=== PATIENT | female | born 1955 | race Caucasian/White ===

== ENCOUNTER → 2017-01-19 | Outpatient (CLI) | payer MEDICARE, OTHER ==
[2017-01-19 10:37] LABS: CH 28.5; CHCM 32.7; HDW 3.06; HGB 12.5 gm/dL (11.4-16.0); MCH 29.5 pg (25.0-35.0); MCHC 33.7 g/dL (31.0-37.0); MCV 87.5 fL (80.0-100.0); Mean Platelet Volume 7.3; RBC 4.23 m/uL (3.80-5.40); RDW 15.1 % (11.5-15.5); WBC 7.9 k/uL (3.8-10.6)
[2017-01-19 10:57] LABS: Anion Gap 9 mmol/L; Blood Urea Nitrogen 15 mg/dL (7-17); Carbon Dioxide 30 mmol/L (22-30); Chloride 103 mmol/L (98-107); Non-African American GFR(MDRD) 56 (>60 ml/min/1.73 sqM); Sodium 142 mmol/L (137-145)
[2017-01-19 10:58] LABS: Potassium 2.9 mmol/L (3.5-5.1)
== END | disposition home or self-care (01) ==
LOC: LABPAT 10:12
PROVIDERS: ATTEND Internal Medicine Interventional Cardiology
DX: Z01.812 Encounter for preprocedural laboratory examination (principal); I73.9 Peripheral vascular disease, unspecified
CPT/HCPCS: 36415; 80051; 82565; 84520; 85027

== ENCOUNTER 2017-01-24 06:07 | Day surgery (SDC) | payer MEDICARE, OTHER ==
[2017-01-19 15:59] VITALS: BMI 27.8
[~2017-01-24 06:07] MED LIST: ALPRAZolam 0.25 MG TAB PO PRN; ASPIRIN 325 MG TAB PO STA; SODIUM CHLORIDE 0.9% 1,000 ML in EMPTY BAG 1 BAG IV ONE
[2017-01-24 06:40] VITALS: TEMP 97.9
[2017-01-24] MEDS ORDERED: MIDAZOLAM 2 MG/2 ML VIAL IVP ONE (07:31)
[2017-01-24] MEDS ORDERED: LIDOCAINE 2% INJ 20 MG/ML SQ ONE (07:32)
[2017-01-24] MEDS ORDERED: fentaNYL (PF) 50 MCG/ML 2 ML AMP IV ONE (07:35)
[2017-01-24] MEDS ORDERED: IODIXANOL 320 MG/ML 100 ML INTRAARTER ONE (07:45)
[2017-01-24] MEDS ORDERED: SODIUM CHLORIDE 0.9% 1,000 ML IV SCH (08:00)
--- NOTE | 2017-01-24 08:34 | LTR ---
January 24, 2017 Re: Brynn Sr Dear Yohana: Ms. Brynn Sr was experiencing bilateral lower extremities discomfort concerning for vascular disease. She underwent a peripheral angiogram which revealed only mild to moderate bilateral disease without any high-grade stenosis. I want to thank you for allowing me to participate in her care and please do not hesitate to call if you have any question or concern. Sincerely, MD JAZZY Forrester / FREEDOM: [id number] /
--- NOTE | 2017-01-24 08:40 | AN ---
ANGIOGRAPHY REPORT DATE OF SERVICE: 01/24/2017 PERFORMING PHYSICIAN: Gabo Simental MD, bank sales and service manager. PROCEDURE PERFORMED: 1. Abdominal aortogram. 2. Bilateral lower extremity runoff. INDICATION: This is a pleasant 61-year-old female patient who is known to have CAD and prior CABG as well as multiple comorbidities, who was experiencing bilateral lower extremity intermittent claudication. She underwent an arterial duplex study which revealed disease involving the left SFA. She was brought today to undergo an abdominal aortogram and bilateral lower extremities runoff. APPROACH: Right common femoral artery. COMPLICATION: None. LEVEL OF SEDATION: Moderate with sedation length of 17 minutes. PROCEDURE DESCRIPTION: After obtaining informed consent, the patient was brought to the cardiac medical laboratory technicians. The right common femoral artery was cannulated using micropuncture technique, the micropuncture wire passed easily. Then I placed a 5-Swedish sheath in the right common femoral artery. Subsequently I did an abdominal aortogram and bilateral lower extremities runoff using 5-Swedish pigtail catheter which was initially placed at the level of the renal arteries then it was pulled into above the bifurcation of the aorta to right and left common iliac arteries. The procedure was completed without any complication. SELECTIVE PERIPHERAL ANGIOGRAM: 1. The aorta has mild disease only. 2. Common iliac arteries: The right common iliac artery appeared to have mild disease only and the left common iliac artery appeared to be angiographically normal. 3. Internal iliac arteries: The right and left internal iliac arteries are patent. 4. External iliac arteries: The right and left external iliac arteries are angiographically normal. 5. Common femoral arteries: The right and left common femoral arteries are angiographically normal. 6. Profunda: The right and left profunda are patent. 7. SFA: The right and left SFA are patent. 8. Popliteal: The right and left popliteals are angiographically normal. 9. Below the knee: There are 3 vessels runoff below the knee bilaterally. CONCLUSION: Intermediate disease involving the right common iliac artery. POSTPROCEDURE MANAGEMENT: 1. At this point, maximize medical treatment. 2. Follow up with the patient. MMODL / IJN: [id number] /
[2017-01-24 10:04] VITALS: RESP 18
--- NOTE | 2017-01-24 11:58 | IR ---
Fluoroscopy HISTORY: Peripheral vascular occlusive disease 1.9 minutes fluoroscopy time supplied to the referring clinician. 102 intraoperative C-arm images do cument the procedure. See dictated report from cardiology.
[2017-01-24 14:17] VITALS: BP 125/58; PULSE 63
== END 2017-01-24 14:50 | disposition home or self-care (01) ==
LOC: CATHCVL 06:07
PROVIDERS: ATTEND Internal Medicine Interventional Cardiology
DX: I70.213 Atherosclerosis of native arteries of extremities with intermittent claudication, bilateral legs (principal); I10 Essential (primary) hypertension; E78.5 Hyperlipidemia, unspecified; Z95.1 Presence of aortocoronary bypass graft; Z87.891 Personal history of nicotine dependence; Z79.82 Long term (current) use of aspirin; Z79.899 Other long term (current) drug therapy
CPT/HCPCS: 36200; 75625; 75716; 84132; C1769 ×3; C1894 ×2; J2001; J2250; Q9967; J3010

== ENCOUNTER → 2019-03-02 | Day surgery (SDC) | payer MEDICARE, OTHER ==
[2019-02-26 15:31] VITALS: BMI 28.3
[~2019-03-02] MED LIST changes: +ALPRAZolam 0.5 MG TAB PO PRN; +IOPAMIDOL-250 100ML BTL INTRAARTER ONE; +LIDOCAINE 1% INJ 10MG/ML (20 ML MDV) SQ ONE; +MIDAZOLAM 2 MG/2 ML VIAL IV ONE; +RX INFO: IV CONTRAST WAS GIVEN 1 EACH MISC MISCELLANE PRN; +SODIUM CHLORIDE 0.9% 1,000 ML IV SCH; +ZOLPIDEM 5 MG TAB PO PRN
[2019-03-02 09:44] VITALS: RESP 18; TEMP 98.1
[2019-03-02 09:54] LABS: Basophils % (A) 1 %; Eosinophils # (A) 0.1 k/uL (0-0.7); Eosinophils % (A) 3 %; HCT 34.6 % (34.0-46.0); HGB 10.9 gm/dL (11.4-16.0); Hypochromasia Slight; Lymphocytes # (A) 1.8 k/uL (1.0-4.8); Lymphocytes % (A) 40 %; MCH 26.5 pg (25.0-35.0); MCHC 31.4 g/dL (31.0-37.0); MCV 84.5 fL (80.0-100.0); Mean Platelet Volume 7.7; Monocytes # (A) 0.3 k/uL (0-1.0); Monocytes % (A) 7 %; Neutrophils # (A) 2.1 k/uL (1.3-7.7); Neutrophils % (A) 47 %; Platelet Count 225 k/uL (150-450); WBC 4.4 k/uL (3.8-10.6)
[2019-03-02 10:05] LABS: Calcium 9.5 mg/dL (8.4-10.2); Potassium 4.1 mmol/L (3.5-5.1)
--- NOTE | 2019-03-02 10:54 | IR ---
EXAMINATION TYPE: IR angio abdominal w runoff DATE OF EXAM: 03/02/2019 CLINICAL HISTORY: Peripheral vascular disease with leg pain. TECHNIQUE: Fluoroscopy. COMPARISON: None. FINDINGS: Fluoroscopic guidance was provided during abdominal angiogram with lower extremity runoff procedure performed by Dr. Simental. A total of 2.9 minutes of fluoroscopic time was utilized during the procedure and 6 cine runs are acquired. Images acquired show access via right groin with subsequent angiogram and runoff. Please refer to procedure note for further details if necessary. IMPRESSION: As Above.
--- NOTE | 2019-03-02 11:27 | AN ---
ANGIOGRAPHY REPORT ABDOMINAL AORTOGRAM AND BILATERAL LOWER EXTREMITIES RUNOFF: DATE OF SERVICE: 03/02/2019 PERFORMING PHYSICIAN: Gabo Simental MD. PROCEDURE PERFORMED: 1. An abdominal aortogram. 2. Bilateral lower extremities runoff. INDICATION: This is a 64-year-old female patient with history of coronary artery disease, history of smoking, as well as hypertension and dyslipidemia who was experiencing bilateral lower extremities intermittent claudication and underwent an arterial duplex study which revealed intermediate to severe femoral-popliteal disease. Because of that, she was brought today to undergo an aortogram with runoff. APPROACH: Right common femoral artery. COMPLICATION: None. LEVEL OF SEDATION: Moderate with a sedation length of 16 minutes. PROCEDURE DESCRIPTION: After obtaining an informed consent, the patient was brought to the cardiac director geophysical laboratory. The right common femoral artery was cannulated using micropuncture technique, the micropuncture wire passed easily, then I placed a 5-Bolivian sheath at the right common femoral artery. After that, I did an abdominal aortogram and bilateral lower extremities runoff using 5-Bolivian pigtail catheter which was initially placed at the level of the renal arteries, then it was pulled into above the bifurcation of the aorta to right and left common iliac arteries. The procedure was completed without any complication. SELECTIVE PERIPHERAL ANGIOGRAM: 1. The aorta appeared to be calcified with mild disease only. 2. Common iliac arteries: The ostial of the right common iliac artery appeared to have a lesion in the range of 50%. The left common iliac artery appeared to have mild disease only. 3. Internal iliac arteries: Both appear to be patent. 4. External iliac arteries: Both appear to be patent. 5. Common femoral arteries: Both appear to be angiographically normal. 6. Profunda: Both are patent. 7. SFA: Both SFA appeared to have mild disease only. 8. Popliteal: Both appeared to be patent. 9. Below the knee: There are 3 vessel runoff below the knee bilaterally. CONCLUSION: 1. Mild to moderate aortoiliac disease with ostial right common iliac lesion appeared to be in the range of 50%. 2. Mild femoral-popliteal disease bilaterally. 3. Three vessel runoff below the knee bilaterally. POSTPROCEDURE MANAGEMENT: Giving the absence of any high-grade stenosis, I did recommend maximized medical treatment and follow up with the patient. MMODL / IJN: [id number] /
[2019-03-02 15:44] VITALS: BP 111/67; PULSE 61
== END ==
LOC: CATHCVL 09:11
PROVIDERS: ATTEND Internal Medicine Interventional Cardiology
DX: I70.213 Atherosclerosis of native arteries of extremities with intermittent claudication, bilateral legs (principal); I25.10 Atherosclerotic heart disease of native coronary artery without angina pectoris; I10 Essential (primary) hypertension; E78.5 Hyperlipidemia, unspecified; F17.210 Nicotine dependence, cigarettes, uncomplicated; Z95.1 Presence of aortocoronary bypass graft; Z95.5 Presence of coronary angioplasty implant and graft; Z79.82 Long term (current) use of aspirin; Z79.899 Other long term (current) drug therapy; Z79.1 Long term (current) use of non-steroidal anti-inflammatories (NSAID); Z88.5 Allergy status to narcotic agent
CPT/HCPCS: 36200; 75625; 75716; 80048; 85025; C1769 ×5; C1894; J2250; J2001; Q9966

== ENCOUNTER 2019-08-24 18:15 | Emergency (ER) | payer MEDICARE ==
[2019-08-24 18:29] VITALS: TEMP 97.8
[2019-08-24] MEDS ORDERED: SODIUM CHLORIDE 0.9% 500 ML 500 ML IV ONE (18:44)
[2019-08-24 18:58] LABS: Glucose,Whole Blood 99 mg/dL (75-99)
[2019-08-24 19:04] LABS: Basophils % (A) 1 %; Eosinophils # (A) 0.2 k/uL (0-0.7); Eosinophils % (A) 3 %; HCT 31.6 % (34.0-46.0); HGB 10.1 gm/dL (11.4-16.0); Hypochromasia Marked; Lymphocytes # (A) 2.2 k/uL (1.0-4.8); Lymphocytes % (A) 41 %; MCH 26.7 pg (25.0-35.0); MCV 83.6 fL (80.0-100.0); Mean Platelet Volume 7.2; Monocytes # (A) 0.4 k/uL (0-1.0); Monocytes % (A) 8 %; Neutrophils # (A) 2.5 k/uL (1.3-7.7); Neutrophils % (A) 46 %; Platelet Count 228 k/uL (150-450); RBC 3.78 m/uL (3.80-5.40); RDW 15.8 % (11.5-15.5); WBC 5.4 k/uL (3.8-10.6)
[2019-08-24 19:08] LABS: Appearance,Urine Clear (Clear); Bilirubin,Urine Negative (Negative); Blood,Urine Negative (Negative); Color,Urine Yellow; Glucose,Urine (UA) Negative (Negative); Hyaline Casts,Urine 8 /lpf (0-2); Ketones,Urine Negative (Negative); Leukocyte Esterase,Urine Small (Negative); Nitrite,Urine Negative (Negative); Protein,Urine Negative (Negative); RBC,Urine <1 /hpf (0-5); Specific Gravity,Urine 1.012 (1.001-1.035); Squamous Epithelial Cell,Urine <1 /hpf (0-4); Urobilinogen,Urine <2.0 mg/dL (<2.0); WBC,Urine 2 /hpf (0-5)
--- NOTE | 2019-08-24 19:11 | ED ---
General Adult HPI - General Chief complaint: Altered Mental Status Stated complaint: weakness Time Seen by Provider: 08/24/19 18:15 Source: patient, EMS, RN notes reviewed, old records reviewed Mode of arrival: EMS Limitations: no limitations - History of Present Illness Initial comments: This is a 64-year-old female who comes to the emergency department with her daughter. Patient herself states she felt confused earlier today and the daughter states she was confused however she currently feels at her baseline and is alert and oriented 3. Daughter states she still not as quickly responsive as she normally is but she is better per the daughter. Patient states he fell last night and did hit her head but did not lose consciousness she also comp lains of some right-sided neck pain. Patient denies any numbness or weakness. Patient denies a headache currently. Patient denies being lightheaded but states she has a little bit of trouble walking. Patient denies any chest pain difficulty breathing shortness of breath. Patient denies any abdominal pain. Patient denies nausea vomiting or diarrhea. Patient states she also has a contusion under her right arm from the fall as well. But it does not hurt. - Related Data Home Medications Medication Instructions Recorded Confirmed Isosorbide Mononitrate [Imdur] 30 mg PO QAM 11/22/13 03/02/19 Aspirin EC [Ecotrin] 325 mg PO DAILY 07/02/15 03/02/19 Atorvastatin [Lipitor] 80 mg PO HS 01/19/17 03/02/19 Chlorthalidone 25 mg PO QAM 01/19/17 03/02/19 Lisinopril [Zestril] 5 mg PO QAM 01/19/17 03/02/19 Metoprolol Tartrate [Lopressor] 50 mg PO BID 01/19/17 03/02/19 Omeprazole 20 mg PO QAM 01/19/17 03/02/19 Diphenox-Atrop 2.5-0.025 mg 2 tab PO QID PRN 01/24/17 03/02/19 [Lomotil] Acetaminophen [Tylenol Extra 500 mg PO Q6H PRN 02/26/19 03/02/19 Strength] Albuterol Inhaler (Mhu) [Ventolin 1 - 2 puff INHALATION RT-Q6H PRN 02/26/19 Hfa Inhaler (Mhu)] Cholecalciferol (Vitamin D3) 2,000 unit PO DAILY 02/26/19 03/02/19 [Vitamin D3] Citalopram Hydrobromide [CeleXA] 40 mg PO DAILY 02/26/19 03/02/19 Fish Oil/Dha/Epa [Fish Oil 1,200 1 each PO DAILY 02/26/19 03/02/19 mg Fish Oil] Ibuprofen [Advil] 200 mg PO Q6HR PRN 02/26/19 03/02/19 Magnesium 200 mg PO DAILY 02/26/19 03/02/19 Meloxicam [Mobic] 7.5 mg PO DAILY 02/26/19 03/02/19 Potassium 99 mg PO DAILY 02/26/19 03/02/19 traZODone HCL 50 mg PO HS 02/26/19 03/02/19 Allergies Allergy/AdvReac Type Severity Reaction Status Date / Time codeine AdvReac Nausea & Verified 08/24/19 18:26 Vomiting Review of Systems ROS Statement: Those systems with pertinent positive or pertinent negative responses have been documented in the HPI. ROS Other: All systems not noted in ROS Statement are negative. Past Medical History Past Medical History: Asthma, Coronary Artery Disease (CAD), Cancer, Chest Pain / Angina, CVA/TIA, GERD/Reflux, Hyperlipidemia, Hypertension, Osteoarthritis (OA), Skin Disorder, Vascular Disorder Additional Past Medical History / Comment(s): chronic back pain,SCOLIOSIS born w/heart murmur, SOB w/activity, hx of gastric ulcer, hx cervical cancer, ECZEMA, hx. TIA 5 yrs. ago, feels off balance frequently History of Any Multi-Drug Resistant Organisms: None Reported Past Surgical History: Section, Cholecystectomy, Coronary Bypass/CABG, Heart Catheterization, Heart Catheterization With Stent, Orthopedic Surgery, Tubal Ligation Additional Past Surgical History / Comment(s): 3x bypass 2009, ORIF right leg, recent heart cath & aortogram @[facility] Past Anesthesia/Blood Transfusion Reactions: No Reported Reaction Date of Last Stent Placement:: unk Past Psychological History: No Psychological Hx Reported Smoking Status: Former smoker Past Alcohol Use History: None Reported Past Drug Use History: None Reported - Past Family History Father Family Medical History: Cancer, Dementia Additional Family Medical History / Comment(s): AT AGE 84-LUNG CA Mother Family Medical History: Coronary Artery Disease (CAD) Additional Family Medical History / Comment(s): AT AGE 73 HEART PROBLEMS HAD CABG General Exam - General Exam Comments Initial Comments: GENERAL: Patient is well-developed and well-nourished. Patient is nontoxic and well- hydrated and is in no acute distress. ENT: Neck is soft and supple. No significant lymphadenopathy is noted. Oropharynx is clear. Moist mucous membranes. Neck has full range of motion without eliciting any pain. EYES: The sclera were anicteric and conjunctiva were pink and moist. Extraocular movements were intact and pupils were equal round and reactive to light. E yelids were unremarkable. PULMONARY: Unlabored respirations. Good breath sounds bilaterally. No audible rales rhonchi or wheezing was noted. CARDIOVASCULAR: There is a regular rate and rhythm without any murmurs gallops or rubs. ABDOMEN: Soft and nontender with normal bowel sounds. SKIN: Skin is clear with no lesions or rashes and otherwise unremarkable. NEUROLOGIC: Patient is alert and oriented x3. Cranial nerves II through XII are grossly intact. Motor and sensory are also intact. Normal speech, volume and content. Symmetrical smile. MUSCULOSKELETAL: Normal extremities with adequate strength and full range of motion. LYMPHATICS: No significant lymphadenopathy is noted PSYCHIATRIC: Normal psychiatric evaluation. Limitations: no limitations Course Vital Signs 08/24/19 08/24/19 08/24/19 18:26 19:00 19:30 Temperature 97.8 F Pulse Rate 66 67 Respiratory 16 20 Rate Blood Pressure 143/70 141/62 O2 Sat by Pulse 99 98 99 Oximetry Medical Decision Making - Medical Decision Making EKG shows normal sinus rhythm at 64 bpm OK interval is 158 QRS is 74 Q-T intervals 436 QTC is 449 per patient's EKG shows no ST segment elevation or depression. CT of the brain and C-spine showed no acute abnormality. Chest x-ray shows no acute abnormality. Patient was positive for methamphetamine which she denied I will back into the room the patient ambulated without problem and she was at her baseline. Patient states she had no complaints in the male friend in the room stated she seemed to be at her baseline. Patient was alert and oriented 4 - Lab Data Result diagrams: 08/24/19 18:39 08/24/19 18:39 Lab Results 08/24/19 08/24/19 08/24/19 Range/Units 18:39 18:39 18:39 WBC 5.4 (3.8-10.6) k/uL RBC 3.78 L (3.80-5.40) m/uL Hgb 10.1 L (11.4-16.0) gm/dL Hct 31.6 L (34.0-46.0) % MCV 83.6 (80.0-100.0) fL MCH 26.7 (25.0-35.0) pg MCHC 32.0 (31.0-37.0) g/dL RDW 15.8 H (11.5-15.5) % Plt Count 228 (150-450) k/uL Neutrophils % 46 % Lymphocytes % 41 % Monocytes % 8 % Eosinophils % 3 % Basophils % 1 % Neutrophils # 2.5 (1.3-7.7) k/uL Lymphocytes # 2.2 (1.0-4.8) k/uL Monocytes # 0.4 (0-1.0) k/uL Eosinophils # 0.2 (0-0.7) k/uL Basophils # 0.0 (0-0.2) k/uL Hypochromasia Marked PT 10.1 (9.0-12.0) sec INR 1.0 (<1.2) APTT 22.1 (22.0-30.0) sec Sodium (137-145) mmol/L Potassium (3.5-5.1) mmol/L Chloride (98-107) mmol/L Carbon Dioxide (22-30) mmol/L Anion Gap mmol/L BUN (7-17) mg/dL Creatinine (0.52-1.04) mg/dL Est GFR (CKD-EPI)AfAm (>60 ml/min/1.73 sqM) Est GFR (CKD-EPI)NonAf (>60 ml/min/1.73 sqM) Glucose (74-99) mg/dL POC Glucose (mg/dL) (75-99) mg/dL POC Glu Ship Scaler ID Calcium (8.4-10.2) mg/dL Total Bilirubin (0.2-1.3) mg/dL AST (14-36) U/L ALT (4-34) U/L Alkaline Phosphatase (38-126) U/L Ammonia (<30) umol/L Troponin I (0.000-0.034) ng/mL Total Protein (6.3-8.2) g/dL Albumin (3.5-5.0) g/dL Urine Color Yellow Urine Appearance Clear (Clear) Urine pH 6.0 (5.0-8.0) Ur Specific [place] 1.012 (1.001-1.035) Urine Protein Negative (Negative) Urine Glucose (UA) Negative (Negative) Urine Ketones Negative (Negative) Urine Blood Negative (Negative) Urine Nitrite Negative (Negative) Urine Bilirubin Negative (Negative) Urine Urobilinogen <2.0 (<2.0) mg/dL Ur Leukocyte Esterase Small H (Negative) Urine RBC <1 (0-5) /hpf Urine WBC 2 (0-5) /hpf Ur Squamous Epith Cells <1 (0-4) /hpf Hyaline Casts 8 H (0-2) /lpf Urine Opiates Screen Not Detected (NotDetected) Ur Oxycodone Screen Not Detected (NotDetected) Urine Methadone Screen Not Detected (NotDetected) Ur Propoxyphene Screen Not Detected (NotDetected) Ur Barbiturates Screen Not Detected (NotDetected) U Tricyclic Antidepress Not Detected (NotDetected) Ur Phencyclidine Scrn Not Detected (NotDetected) Ur Amphetamines Screen Detected H (NotDetected) U Methamphetamines Scrn Detected H (NotDetected) U Benzodiazepines Scrn Detected H (NotDetected) Urine Cocaine Screen Not Detected (NotDetected) U Marijuana (THC) Screen Not Detected (NotDetected) Serum Alcohol mg/dL 08/24/19 08/24/19 08/24/19 Range/Units 18:39 18:39 18:39 WBC (3.8-10.6) k/uL RBC (3.80-5.40) m/uL Hgb (11.4-16.0) gm/dL Hct (34.0-46.0) % MCV (80.0-100.0) fL MCH (25.0-35.0) pg MCHC (31.0-37.0) g/dL RDW (11.5-15.5) % Plt Count (150-450) k/uL Neutrophils % % Lymphocytes % % Monocytes % % Eosinophils % % Basophils % % Neutrophils # (1.3-7.7) k/uL Lymphocytes # (1.0-4.8) k/uL Monocytes # (0-1.0) k/uL Eosinophils # (0-0.7) k/uL Basophils # (0-0.2) k/uL Hypochromasia PT (9.0-12.0) sec INR (<1.2) APTT (22.0-30.0) sec Sodium 134 L (137-145) mmol/L Potassium 3.6 (3.5-5.1) mmol/L Chloride 104 (98-107) mmol/L Carbon Dioxide 23 (22-30) mmol/L Anion Gap 7 mmol/L BUN 29 H (7-17) mg/dL Creatinine 1.53 H (0.52-1.04) mg/dL Est GFR (CKD-EPI)AfAm 42 (>60 ml/min/1.73 sqM) Est GFR (CKD-EPI)NonAf 36 (>60 ml/min/1.73 sqM) Glucose 94 (74-99) mg/dL POC Glucose (mg/dL) (75-99) mg/dL POC Glu Ship Scaler ID Calcium 8.9 (8.4-10.2) mg/dL Total Bilirubin 0.4 (0.2-1.3) mg/dL AST 38 H (14-36) U/L ALT 36 H (4-34) U/L Alkaline Phosphatase 139 H (38-126) U/L Ammonia <9 (<30) umol/L Troponin I <0.012 (0.000-0.034) ng/mL Total Protein 7.0 (6.3-8.2) g/dL Albumin 3.7 (3.5-5.0) g/dL Urine Color Urine Appearance (Clear) Urine pH (5.0-8.0) Ur Specific [place] (1.001-1.035) Urine Protein (Negative) Urine Glucose (UA) (Negative) Urine Ketones (Negative) Urine Blood (Negative) Urine Nitrite (Negative) Urine Bilirubin (Negative) Urine Urobilinogen (<2.0) mg/dL Ur Leukocyte Esterase (Negative) Urine RBC (0-5) /hpf Urine WBC (0-5) /hpf Ur Squamous Epith Cells (0-4) /hpf Hyaline Casts (0-2) /lpf Urine Opiates Screen (NotDetected) Ur Oxycodone Screen (NotDetected) Urine Methadone Screen (NotDetected) Ur Propoxyphene Screen (NotDetected) Ur Barbiturates Screen (NotDetected) U Tricyclic Antidepress (NotDetected) Ur Phencyclidine Scrn (NotDetected) Ur Amphetamines Screen (NotDetected) U Methamphetamines Scrn (NotDetected) U Benzodiazepines Scrn (NotDetected) Urine Cocaine Screen (NotDetected) U Marijuana (THC) Screen (NotDetected) Serum Alcohol mg/dL 08/24/19 08/24/19 Range/Units 18:57 19:30 WBC (3.8-10.6) k/uL RBC (3.80-5.40) m/uL Hgb (11.4-16.0) gm/dL Hct (34.0-46.0) % MCV (80.0-100.0) fL MCH (25.0-35.0) pg MCHC (31.0-37.0) g/dL RDW (11.5-15.5) % Plt Count (150-450) k/uL Neutrophils % % Lymphocytes % % Monocytes % % Eosinophils % % Basophils % % Neutrophils # (1.3-7.7) k/uL Lymphocytes # (1.0-4.8) k/uL Monocytes # (0-1.0) k/uL Eosinophils # (0-0.7) k/uL Basophils # (0-0.2) k/uL Hypochromasia PT (9.0-12.0) sec INR (<1.2) APTT (22.0-30.0) sec Sodium (137-145) mmol/L Potassium (3.5-5.1) mmol/L Chloride (98-107) mmol/L Carbon Dioxide (22-30) mmol/L Anion Gap mmol/L BUN (7-17) mg/dL Creatinine (0.52-1.04) mg/dL Est GFR (CKD-EPI)AfAm (>60 ml/min/1.73 sqM) Est GFR (CKD-EPI)NonAf (>60 ml/min/1.73 sqM) Glucose (74-99) mg/dL POC Glucose (mg/dL) 99 (75-99) mg/dL POC Glu Ship Scaler ID [place] Calcium (8.4-10.2) mg/dL Total Bilirubin (0.2-1.3) mg/dL AST (14-36) U/L ALT (4-34) U/L Alkaline Phosphatase (38-126) U/L Ammonia (<30) umol/L Troponin I (0.000-0.034) ng/mL Total Protein (6.3-8.2) g/dL Albumin (3.5-5.0) g/dL Urine Color Urine Appearance (Clear) Urine pH (5.0-8.0) Ur Specific [place] (1.001-1.035) Urine Protein (Negative) Urine Glucose (UA) (Negative) Urine Ketones (Negative) Urine Blood (Negative) Urine Nitrite (Negative) Urine Bilirubin (Negative) Urine Urobilinogen (<2.0) mg/dL Ur Leukocyte Esterase (Negative) Urine RBC (0-5) /hpf Urine WBC (0-5) /hpf Ur Squamous Epith Cells (0-4) /hpf Hyaline Casts (0-2) /lpf Urine Opiates Screen (NotDetected) Ur Oxycodone Screen (NotDetected) Urine Methadone Screen (NotDetected) Ur Propoxyphene Screen (NotDetected) Ur Barbiturates Screen (NotDetected) U Tricyclic Antidepress (NotDetected) Ur Phencyclidine Scrn (NotDetected) Ur Amphetamines Screen (NotDetected) U Methamphetamines Scrn (NotDetected) U Benzodiazepines Scrn (NotDetected) Urine Cocaine Screen (NotDetected) U Marijuana (THC) Screen (NotDetected) Serum Alcohol <10 mg/dL Disposition Clinical Impression: Methamphetamine abuse, Fall Disposition: HOME SELF-CARE Condition: Good Instructions (If sedation given, give patient instructions): Methamphetamine Abuse (ED) Is patient prescribed a controlled substance at d/c from ED?: No Referrals: Stephania Mims MD [Primary Care Provider] - 1-2 days
[2019-08-24 19:12] LABS: Albumin 3.7 g/dL (3.5-5.0); Calcium 8.9 mg/dL (8.4-10.2); Potassium 3.6 mmol/L (3.5-5.1); Total Bilirubin 0.4 mg/dL (0.2-1.3)
[2019-08-24 19:18] LABS: Amphetamine Screen,Urine Detected (NotDetected); Barbiturate Screen,Urine Not Detected (NotDetected); Benzodiazepines Screen,Urine Detected (NotDetected); Cocaine Screen,Urine Not Detected (NotDetected); Methadone Screen, Urine Not Detected (NotDetected); Opiate Screen,Urine Not Detected (NotDetected); Oxycodone Screen, Urine Not Detected (NotDetected); Phencyclidine Screen,Urine Not Detected (NotDetected); Tricyclic Antidepressant,Urine Not Detected (NotDetected); Urn Cannabinoid Scrn Not Detected (NotDetected)
--- NOTE | 2019-08-24 19:21 | CT ---
EXAMINATION TYPE: CT brain candida wo con DATE OF EXAM: 08/24/2019 COMPARISON: CT brain 07/02/2015 HISTORY: 64-year-old female, confusion, Altered mental status. CT DLP: 1419.7 mGycm Automated exposure control for dose reduction was used. Technique: Examination of the head was done in axial plane without intravenous contrast. Coronal and sagittal reconstructions performed. CT of the cervical spine was obtained in axial plane without intravenous injection of contrast mater ial. Coronal and sagittal reformatted images were obtained from the axial views for evaluation of f ractures, spinal alignment and canal. FINDINGS: Head: There is no evidence of acute intracranial hemorrhage, acute ischemic changes, mass, mass-effect, or extra-axial fluid collection. There is no effacement of cerebral sulci or basal subarachnoid cister ns. There is no hydrocephalus. There is no midline shift. Barnes-white matter distinction is preserv ed. Atherosclerotic calcifications within the carotid siphons. Paranasal sinuses and mastoid air cells are well pneumatized. Orbits and globes are intact. No calvar ial fracture seen. Cervical spine: No craniocervical junction abnormality, predental space widening, or prevertebral soft tissue swellin g. Reversal of the normal cervical lordosis. Moderate to advanced disc/endplate degenerative change throughout with disc height loss and disc oste ophyte complex formation. Grade 1 anterolisthesis at C2-C3 and at T2-T3. Remaining alignment is maintained. Multilevel advanced hypertrophic uncovertebral joint arthropathy. Facet degenerative changes also pre sent. No acute fracture of the cervical spine. Moderate neuroforaminal stenosis at C4-C5 and to a lesser extent at C5-C6-C7 and Retropharyngeal course of the carotid bifurcations. Sagittal and coronal reformatted images confirm above findings. COMBINED IMPRESSION: 1. No acute intracranial abnormality seen. 2. No acute fracture of the cervical spine. Moderate multilevel spondylotic change. Degenerative grad e 1 anterolisthesis at C2-C3 and T2-T3.
[2019-08-24 19:27] LABS: Partial Thromboplastin Time 22.1 sec (22.0-30.0); Prothrombin Time 10.1 sec (9.0-12.0)
[2019-08-24 19:32] VITALS: BP 141/62; PULSE 67; RESP 20
--- NOTE | 2019-08-24 19:54 | XR ---
EXAMINATION TYPE: XR chest 2V DATE OF EXAM: 08/24/2019 COMPARISON: 07/02/2015 HISTORY: 64-year-old female confusion, altered mental status, weakness TECHNIQUE: AP and lateral views FINDINGS: Median sternotomy wires are present. Heart upper limits of normal in size. Mild interstitial prominen ce is unchanged and appears chronic. No consolidation or pleural effusion. IMPRESSION: Chronic changes, possible chronic bronchitis or asthma. No definite acute process.
== END 2019-08-24 20:31 | disposition home or self-care (01) ==
LOC: EC 18:15
DX: F15.10 Other stimulant abuse, uncomplicated (principal); S09.90XA Unspecified injury of head, initial encounter; J45.909 Unspecified asthma, uncomplicated; I25.119 Atherosclerotic heart disease of native coronary artery with unspecified angina pectoris; K21.9 Gastro-esophageal reflux disease without esophagitis; E78.5 Hyperlipidemia, unspecified; I10 Essential (primary) hypertension; M19.90 Unspecified osteoarthritis, unspecified site; G89.29 Other chronic pain; M54.9 Dorsalgia, unspecified; M41.9 Scoliosis, unspecified; Z79.1 Long term (current) use of non-steroidal anti-inflammatories (NSAID); Z79.82 Long term (current) use of aspirin; Z79.899 Other long term (current) drug therapy; Z85.41 Personal history of malignant neoplasm of cervix uteri; Z86.73 Personal history of transient ischemic attack (TIA), and cerebral infarction without residual deficits; Z87.19 Personal history of other diseases of the digestive system; Z87.891 Personal history of nicotine dependence; Z88.5 Allergy status to narcotic agent; Z87.11 Personal history of peptic ulcer disease; Z95.1 Presence of aortocoronary bypass graft; Z95.5 Presence of coronary angioplasty implant and graft; W19.XXXA Unspecified fall, initial encounter
CPT/HCPCS: 36415; 93005; 80053; 82140; 84484; 85025; 85610; 85730; 81001; 80306; 71046; 72125; 70450; 99285; 96360; G0480; 80320

== ENCOUNTER → 2019-09-07 | Outpatient (CLI) | payer MEDICARE, OTHER ==
[2019-09-07 15:24] LABS: HCT 33.4 % (34.0-46.0); HGB 9.9 gm/dL (11.4-16.0); Hypochromasia Marked; MCH 24.9 pg (25.0-35.0); MCHC 29.8 g/dL (31.0-37.0); MCV 83.6 fL (80.0-100.0); Mean Platelet Volume 7.6; Platelet Count 260 k/uL (150-450); RBC 3.99 m/uL (3.80-5.40); WBC 5.6 k/uL (3.8-10.6)
[2019-09-07 22:54] LABS: INR 0.98 (0.90-1.11); Partial Thromboplastin Time 27.1 sec (24.7-29.9); Prothrombin Time 10.5 sec (9.9-11.9)
[2019-09-07 23:25] LABS: African American GFR (CKD) 46.6 (60.0-200.0); Albumin 3.9 g/dL (3.80-4.90); Albumin/Globulin Ratio 1.39 (1.60-3.17); Anion Gap 8.7 mmol/L (4.00-12.00); BUN/Creat Ratio 17.14 Ratio (12.00-20.00); Calcium 8.8 mg/dL (8.7-10.3); Carbon Dioxide 25.3 mmol/L (21.6-31.8); Globulin 2.8 g/dL (1.6-3.3); Non-African American GFR(CKD) 40.2 (60.0-200.0); Potassium 4.1 mmol/L (3.5-5.5); Total Bilirubin 0.4 mg/dL (0.2-1.2); Total Protein 6.7 g/dL (6.2-8.2)
== END | disposition home or self-care (01) ==
LOC: LABWHC1 15:01
PROVIDERS: ATTEND Student in an Organized Health Care Education/Training Program
DX: R06.02 Shortness of breath (principal)
CPT/HCPCS: 36415; 80053; 83880; 85027; 85610; 85730

== ENCOUNTER → 2019-12-05 | Outpatient (CLI) | payer MEDICARE, OTHER ==
[2019-12-05 12:52] LABS: Anisocytosis Slight; Basophils # (A) 0.1 k/uL (0-0.2); Basophils % (A) 1 %; Eosinophils # (A) 0.2 k/uL (0-0.7); Eosinophils % (A) 3 %; HCT 36.4 % (34.0-46.0); HGB 11.4 gm/dL (11.4-16.0); Hypochromasia Marked; Lymphocytes # (A) 2.5 k/uL (1.0-4.8); Lymphocytes % (A) 38 %; MCH 24.7 pg (25.0-35.0); MCHC 31.2 g/dL (31.0-37.0); MCV 79.3 fL (80.0-100.0); Mean Platelet Volume 6.7; Monocytes # (A) 0.4 k/uL (0-1.0); Monocytes % (A) 5 %; Neutrophils # (A) 3.4 k/uL (1.3-7.7); Neutrophils % (A) 52 %; Platelet Count 324 k/uL (150-450); RBC 4.59 m/uL (3.80-5.40); RDW 16.2 % (11.5-15.5); WBC 6.5 k/uL (3.8-10.6)
[2019-12-05 23:20] LABS: Erythrocyte Sedimentation Rate 106 mm/Hr (0-30)
[2019-12-06 04:26] LABS: C Reactive Protein <0.4 mg/dL (0.0-0.8); Rheumatoid Factor, Qnt 46 IU/mL (0-15)
[2019-12-06 12:24] LABS: HLA B27 NEGATIVE
[2019-12-07 11:29] LABS: ANA Pattern Speckled; ANA Pattern 2 Nucleolar
== END | disposition home or self-care (01) ==
LOC: LABWHC1 09:18
PROVIDERS: ATTEND Orthopaedic Surgery
DX: M25.50 Pain in unspecified joint (principal)
CPT/HCPCS: 36415; 84550; 85025; 85652; 86038; 86039; 86140; 86431; 86812

== ENCOUNTER → 2020-03-27 | Outpatient (CLI) | payer MEDICARE, OTHER ==
--- NOTE | 2020-03-27 07:42 | US ---
EXAMINATION TYPE: US liver DATE OF EXAM: 03/27/2020 COMPARISON: NONE CLINICAL HISTORY: B18.2 CHR VIRAL HEP C. EXAM MEASUREMENTS: Liver Length: 12.9 cm Gallbladder Wall: Surgically absent CBD: 0.6 cm Right Kidney: 8.4 x 3.7 x 4.5 cm Pancreas: Tail obscured by overlying bowel gas, wnl as seen Liver: wnl Gallbladder: Surgically absent Evidence for sonographic Malhotra's sign:no CBD: wnl Right Kidney: measures small IMPRESSION: 1. No acute ultrasound abnormality
[2020-03-27 08:31] LABS: Anisocytosis Slight; Basophils # (A) 0.1 k/uL (0-0.2); Basophils % (A) 1 %; Eosinophils # (A) 0.2 k/uL (0-0.7); Eosinophils % (A) 3 %; Hypochromasia Marked; Lymphocytes # (A) 1.9 k/uL (1.0-4.8); Lymphocytes % (A) 36 %; MCH 24.7 pg (25.0-35.0); MCHC 31.1 g/dL (31.0-37.0); MCV 79.4 fL (80.0-100.0); Microcytosis Slight; Monocytes # (A) 0.4 k/uL (0-1.0); Monocytes % (A) 7 %; Neutrophils # (A) 2.7 k/uL (1.3-7.7); Neutrophils % (A) 51 %; Platelet Count 269 k/uL (150-450); RBC 3.65 m/uL (3.80-5.40); RDW 16.6 % (11.5-15.5); WBC 5.2 k/uL (3.8-10.6)
[2020-03-27 08:38] LABS: Prothrombin Time 10.4 sec (9.0-12.0)
[2020-03-27 08:43] LABS: Albumin 3.7 g/dL (3.5-5.0); Calcium 9.1 mg/dL (8.4-10.2); Potassium 4.6 mmol/L (3.5-5.1); Total Bilirubin 0.3 mg/dL (0.2-1.3); Total Protein 7.1 g/dL (6.3-8.2)
[2020-03-27 16:09] LABS: Alpha Fetoprotein, Tumor Mkr 4.5 ng/mL (0.0-7.9)
[2020-03-27 16:58] LABS: Hepatitis A Antibody IgM Non-Reactive (Non-Reactive); Hepatitis B Core IgM Non-Reactive (Non-Reactive); Hepatitis B Surface Antigen Non-Reactive (Non-Reactive); Hepatitis C IgG Antibody Reactive (Non-Reactive)
[2020-03-27 18:08] LABS: HIV 2 AB Non-Reactive (Non-Reactive); HIV AB P24 Non-Reactive (Non-Reactive); HIV P24 AG Non-Reactive (Non-Reactive)
== END | disposition home or self-care (01) ==
LOC: RADUSWWP 07:05
PROVIDERS: ATTEND Internal Medicine Gastroenterology
DX: B18.2 Chronic viral hepatitis C (principal)
CPT/HCPCS: 36415; 76705; 80053; 80074; 82105; 85025; 85610; 87390; 87522

== ENCOUNTER → 2020-08-15 | Outpatient (CLI) | payer MEDICARE, OTHER ==
[2020-08-15 23:22] LABS: Basophils # (A) 0.06 X 10*3/uL (0.00-0.10); Basophils % (A) 0.9 %; Eosinophils # (A) 0.15 X 10*3/uL (0.04-0.35); Eosinophils % (A) 2.3 %; HGB 9.4 g/dL (12.0-15.0); Lymphocytes # (A) 2.55 X 10*3/uL (0.90-5.00); Lymphocytes % (A) 39.8 %; MCH 24.5 pg (27.0-32.0); MCHC 29.4 g/dL (32.0-37.0); MCV 83.6 fL (80.0-97.0); Mean Platelet Volume 9.4 fL (9.5-12.2); Monocytes % (A) 9.4 %; Platelet Count 258 X 10*3/uL (140-440); RBC 3.83 X 10*6/uL (4.10-5.20)
[2020-08-16 03:00] LABS: ALT 20 U/L (8-44); AST 24 U/L (13-35); Albumin/Globulin Ratio 1.39 (1.60-3.17); Alkaline Phosphatase 112 U/L (41-126); Bilirubin, Conjugated <0.20 mg/dL (0.20-0.40); Globulin 2.8 g/dL (1.6-3.3); Total Bilirubin 0.3 mg/dL (0.2-1.2); Total Protein 6.7 g/dL (6.2-8.2)
== END | disposition home or self-care (01) ==
LOC: LABWHC1 14:53
PROVIDERS: ATTEND Nurse Practitioner
DX: B18.2 Chronic viral hepatitis C (principal)
CPT/HCPCS: 36415; 80076; 85025; 87522

== ENCOUNTER → 2021-01-27 | Outpatient (CLI) | payer MEDICARE, OTHER ==
[2021-01-27 23:16] LABS: Basophils # (A) 0.04 X 10*3/uL (0.00-0.10); Basophils % (A) 0.6 %; Eosinophils # (A) 0.12 X 10*3/uL (0.04-0.35); Eosinophils % (A) 1.9 %; HGB 9.6 g/dL (12.0-15.0); Lymphocytes # (A) 2.13 X 10*3/uL (0.90-5.00); Lymphocytes % (A) 33.4 %; MCH 24.8 pg (27.0-32.0); MCV 82.7 fL (80.0-97.0); Mean Platelet Volume 9.7 fL (9.5-12.2); Monocytes # (A) 0.61 X 10*3/uL (0.20-1.00); Monocytes % (A) 9.6 %; Neutrophils # (A) 3.44 X 10*3/uL (1.80-7.70); Neutrophils % (A) 53.9 %; Platelet Count 232 X 10*3/uL (140-440); RBC 3.87 X 10*6/uL (4.10-5.20); RDW 17.5 % (11.5-14.5); WBC 6.38 X 10*3/uL (4.50-10.00)
== END | disposition home or self-care (01) ==
LOC: LABWHC1 16:04
PROVIDERS: ATTEND Orthopaedic Surgery
DX: Z01.812 Encounter for preprocedural laboratory examination (principal); T84.89XD Other specified complication of internal orthopedic prosthetic devices, implants and grafts, subsequent encounter; X58.XXXD Exposure to other specified factors, subsequent encounter
CPT/HCPCS: 36415; 85025; 93005

== ENCOUNTER 2021-02-05 07:09 | Day surgery (SDC) | payer MEDICARE, OTHER ==
[2021-01-26 11:28] VITALS: BMI 27.8
--- NOTE | 2021-02-04 20:20 | HP ---
HISTORY AND PHYSICAL DATE OF SURGERY: 02/05/2021 Brynn Sr is a 65-year-old patient seen with irritating hardware, right proximal tibia. We discussed options for treatment. She elected to proceed with removal of irritating hardware in her proximal tibia. Consent was obtained. PAST MEDICAL HISTORY: Hyperlipidemia, hypertension, gastroesophageal reflux disease. PAST SURGICAL HISTORY: Tubal ligation, section, coronary artery bypass surgery, ORIF, right proximal tibial fracture. DAILY MEDICATIONS: Aspirin, Lipitor, lisinopril, metoprolol, gabapentin, hydrochlorothiazide, isosorbide. ALLERGIES: NONE. SOCIAL HISTORY: She denies tobacco use. PHYSICAL EVALUATION OF THE RIGHT LOWER EXTREMITY: There is tenderness along the proximal lateral tibia in the area of the hardware. Range of motion is negative 3 to 85 degrees. Ligaments are stable. Hip rotation is without pain. Her distal neurovascular exam is intact. Radiographs of the right knee revealed severe osteoarthritic changes as well as two screws in the proximal tibial plateau. IMPRESSION: 1. Irritating hardware, right proximal tibia. 2. Hypertension. 3. Hypothyroidism. 4. Hyperlipidemia. PLAN: Removal of irritating hardware, right proximal tibia. MMODL / IJN: [id number] /
[~2021-02-05 07:09] MED LIST changes: +.fentaNYL (PF) 50 MCG/ML AMP IV PRN; -ALPRAZolam 0.25 MG TAB PO PRN; -ALPRAZolam 0.5 MG TAB PO PRN; -ASPIRIN 325 MG TAB PO STA; -IOPAMIDOL-250 100ML BTL INTRAARTER ONE; +LACTATED RINGERS 1,000 ML IV SCH; +LIDOCAINE 1% (10MG/ML) FOR IV START INTRADERMA PRN; -LIDOCAINE 1% INJ 10MG/ML (20 ML MDV) SQ ONE; -MIDAZOLAM 2 MG/2 ML VIAL IV ONE; +ONDANSETRON 4 MG/2 ML VIAL IVP ONE; -RX INFO: IV CONTRAST WAS GIVEN 1 EACH MISC MISCELLANE PRN; -SODIUM CHLORIDE 0.9% 1,000 ML IV SCH; -SODIUM CHLORIDE 0.9% 1,000 ML in EMPTY BAG 1 BAG IV ONE; -ZOLPIDEM 5 MG TAB PO PRN
[2021-02-05] MEDS ORDERED: .fentaNYL (PF) 50 MCG/ML AMP ONE (08:02)
[2021-02-05] MEDS ORDERED: ceFAZolin 1,000 MG VIAL ONE (08:02)
[2021-02-05] MEDS ORDERED: LIDOCAINE 1% INJ 10MG/ML (20 ML MDV) ONE (08:02)
[2021-02-05] MEDS ORDERED: PROPOFOL 10 MG/ML 20 ML VIAL IV ONE (08:02)
[2021-02-05] MEDS ORDERED: MIDAZOLAM 2 MG/2 ML VIAL ONE (08:02)
[2021-02-05] MEDS ORDERED: SUCCINYLCHOLINE CHLORIDE 100 MG/5 ML SYR IV ONE (08:02)
[2021-02-05] MEDS ORDERED: ROCURONIUM 10 MG/ML (5 ML VIAL) IV ONE (08:02)
[2021-02-05] MEDS ORDERED: ceFAZolin 1,000 MG in SODIUM CHLORIDE 0.9% 1,000 ML IRRIGATION ONE (08:07)
[2021-02-05 08:16] LABS: Potassium 3.6 mmol/L (3.5-5.1)
[2021-02-05] MEDS ORDERED: BUPIVACAINE (PF) 0.25% 30 ML VIAL SQ ONE ×2 (08:23→08:50)
--- NOTE | 2021-02-05 08:57 | P.OP ---
Date of Procedure: 02/05/21 Preoperative Diagnosis: Irritating hardware right proximal tibia Postoperative Diagnosis: Same Procedure(s) Performed: Removal irritating hardware right proximal tibia Anesthesia: SABRINA, local Surgeon: Ar Edge Operator [employer] #1: Killian Craig Estimated Blood Loss (ml): 4 Pathology: none sent Condition: stable Disposition: PACU Indications for Procedure: 65-year-old patient seen with irritating hardware involving the proximal right tibia. After treatment options were discussed with her, she elected to proceed with removal of the irritating hardware. Operative Findings: See description of procedure Description of Procedure: Patient was taken to the operative suite. She received preoperative IV antibiotics. She underwent a general anesthetic by the department of anesthesia. A well-padded tourniquet placed proximal right lower extremity. The right lower extremity was prepped and draped in the normal sterile orthopedic fashion. We now elevate the extremity and insufflated the tourniquet to 300. I made a small incision in the area of the previous incision lateral proximal right tibia. With this is a 70 branch retracting soft tissues was able to identify the 2 proximal screws. They were removed without difficulty. The wound was irrigated copiously. We had good hemostasis. The subcu soft tissues were approximated with 2-0 Vicryl. The skin was repaired with nylon suture. The area was infiltrated with quarter percent plain Marcaine totaling 10 mL for postoperative pain management. Sterile dressings were applied. The tourniquet was released and immediate capillary refill noted. Patient transferred to a bed and recovery in stable condition.
--- NOTE | 2021-02-05 08:59 | XR ---
Fluoroscopy History: KNEE FRACTURE screw removal. 10 sec fl time. 1 pic on syn
[2021-02-05 09:10] VITALS: TEMP 97.9
[2021-02-05] MEDS ORDERED: LACTATED RINGERS 1,000 ML IV ONE ×2 (09:35)
[2021-02-05 09:58] VITALS: RESP 20
[2021-02-05] MEDS ORDERED: HYDROcodone/APAP 5-325MG 1 EACH TAB ONE (10:06)
[2021-02-05] MEDS ORDERED: HYDROcodone/APAP 5-325MG 1 EACH TAB PO ONE (10:08)
[2021-02-05 10:41] VITALS: BP 121/70; PULSE 75
== END 2021-02-05 11:00 | disposition home or self-care (01) ==
LOC: OR 07:09
PROVIDERS: ATTEND Orthopaedic Surgery
DX: T85.898A Other specified complication of other internal prosthetic devices, implants and grafts, initial encounter (principal)
CPT/HCPCS: 20680; 80051; 73560; J2250; J2405; J0690; J2001; J3010; J0330; J2704

== ENCOUNTER → 2021-04-10 | Outpatient (CLI) | payer MEDICARE, OTHER ==
[2021-04-10 19:49] LABS: Basophils # (A) 0.07 X 10*3/uL (0.00-0.10); Basophils % (A) 1.2 %; Eosinophils # (A) 0 X 10*3/uL (0.04-0.35); Eosinophils % (A) 0 %; HCT 32.3 % (37.2-46.3); HGB 9.4 g/dL (12.0-15.0); Lymphocytes # (A) 1.94 X 10*3/uL (0.90-5.00); Lymphocytes % (A) 34.3 %; MCH 23.9 pg (27.0-32.0); MCHC 29.1 g/dL (32.0-37.0); MCV 82.2 fL (80.0-97.0); Mean Platelet Volume 9.5 fL (9.5-12.2); Monocytes # (A) 0.56 X 10*3/uL (0.20-1.00); Monocytes % (A) 9.9 %; Neutrophils # (A) 3.07 X 10*3/uL (1.80-7.70); Neutrophils % (A) 54.4 %; Platelet Count 295 X 10*3/uL (140-440); RBC 3.93 X 10*6/uL (4.10-5.20); WBC 5.65 X 10*3/uL (4.50-10.00)
== END | disposition home or self-care (01) ==
LOC: LABPAT 11:53
PROVIDERS: ATTEND Orthopaedic Surgery
DX: Z01.812 Encounter for preprocedural laboratory examination (principal); M17.11 Unilateral primary osteoarthritis, right knee
CPT/HCPCS: 36415; 85025; 87070

== ENCOUNTER 2021-04-13 13:00 | Day surgery (SDC) | payer MEDICARE, OTHER ==
[2021-04-08 16:17] VITALS: BMI 26.4
--- NOTE | 2021-04-12 11:24 | HP ---
HISTORY AND PHYSICAL DATE OF SURGERY: 04/13/2021 Brynn Sr is a 66-year-old patient seen with symptomatic right knee osteoarthritis. We discussed options for treatment. She elected to proceed with right total knee arthroplasty. Consent regarding the procedure was obtained. Cardiac clearance was provided. PAST MEDICAL HISTORY: Hypertension, hyperlipidemia, gastroesophageal reflux disease. PAST SURGICAL HISTORY: Tubal ligation, section, bypass surgery, removal of hardware, right tibia, ORIF right tibia. DAILY MEDICATIONS: Lipitor, lisinopril, metoprolol, Prilosec, aspirin. ALLERGIES: NONE REPORTED. SOCIAL HISTORY: She smokes a half pack of cigarettes daily. PHYSICAL EVALUATION OF THE RIGHT KNEE: Range of motion is negative 3 to 115. Lateral joint line tenderness, lateral crepitus. Ligaments stable. Hip rotation without pain. Valgus deformity present. Distal neurovascular exam intact. Radiographs of the right knee reveal severe lateral compartment osteoarthritic changes. IMPRESSION: 1. Right knee osteoarthritis. 2. Hypertension. 3. Hyperlipidemia. 4. Gastroesophageal reflux disease. 5. Cardiovascular disease. PLAN: Right total knee arthroplasty. MMODL / IJN: [id number] /
[~2021-04-13 13:00] MED LIST changes: -.fentaNYL (PF) 50 MCG/ML AMP IV PRN; +ACETAMINOPHEN TAB 500 MG TAB PO PRN; +DEXAMETHASONE SOD PHOSPHATE 4 MG/ML 1 ML VIAL IV ONE; +HYDROmorphone 1 MG/ML 1 ML SYRINGE IVP PRN; +MELOXICAM 7.5 MG TAB PO PRN; -ONDANSETRON 4 MG/2 ML VIAL IVP ONE; +ONDANSETRON 4 MG/2 ML VIAL IVP PRN; +TRANEXAMIC ACID 1,000 MG in SODIUM CHLORIDE 0.9% 100 ML IVPB PRN
[2021-04-13] MEDS ORDERED: MIDAZOLAM 2 MG/2 ML VIAL IVP ONE (13:17)
[2021-04-13] MEDS ORDERED: ROPIVACAINE 0.2%-NS ON-Q PUMP 1,090 MG, EMPTY PAIN BALL 1 EACH MISCELLANE PRN (14:39)
--- NOTE | 2021-04-13 14:42 | P.ANPRN ---
Procedure Note - Anesthesia - Nerve Block Performed Right Adductor Canal Infusion Time Out Performed: Yes (1416) Date of Procedure: 04/13/21 Location of Patient: PreOp Indication: Acute Post-Operative Pain, Dx/Pain Location (Riht Knee pain), Requested by Surgeon Specifically requested for management of pain by DrYenny: Ar Edge Sedation Type: Sedate with meaningful contact maintained Preparation: Sterile Prep, Sterile Dressing Position: Supine Catheter: Indwelling Needle Types: Pajunk Needle Gauge: 18, 20 Ultrasound used to visualize needle placement: Yes Ultrasound used to observe medication spread: Yes Injectate: 0.5% Ropivacaine (see comment for volume) (20 cc) Blood Aspirated: No Pain Paresthesia on Injection Noted: No Resistance on Injection: Normal Image Stored and Saved: Yes Events: Uneventful and Well Tolerated Right iPack Single Time Out Performed: Yes Date of Procedure: 04/13/21 Location of Patient: PreOp Indication: Acute Post-Operative Pain, Dx/Pain Location (Right Knee), Requested by Surgeon Specifically requested for management of pain by DrYenny: Ar Edge Sedation Type: Sedate with meaningful contact maintained Preparation: Sterile Prep Position: Left Lateral Catheter: None Needle Types: Pajunk Needle Gauge: 20 Ultrasound used to visualize needle placement: Yes Ultrasound used to observe medication spread: Yes Injectate: 0.5% Ropivacaine (see comment for volume) (15 cc) Blood Aspirated: No Pain Paresthesia on Injection Noted: No Resistance on Injection: Normal Image Stored and Saved: Yes Events: Uneventful and Well Tolerated
[2021-04-13] MEDS ORDERED: HYDROmorphone (PF) 1 MG/ML ONE (14:45)
[2021-04-13] MEDS ORDERED: MIDAZOLAM 2 MG/2 ML VIAL ONE (14:45)
[2021-04-13] MEDS ORDERED: SODIUM CHLORIDE 0.9% 100 ML BAG ONE (14:45)
[2021-04-13] MEDS ORDERED: fentaNYL (PF) 50 MCG/ML 2 ML AMP ONE (14:45)
[2021-04-13] MEDS ORDERED: LIDOCAINE 1% INJ 10MG/ML (20 ML MDV) ONE (14:45)
[2021-04-13] MEDS ORDERED: ePHEDrine 50 MG/ML 1 ML VIAL ONE (14:45)
[2021-04-13] MEDS ORDERED: ROPIVACAINE 5 MG/ML 30 ML VIAL ONE (14:45)
[2021-04-13] MEDS ORDERED: PROPOFOL 10 MG/ML 20 ML VIAL IV ONE (14:45)
[2021-04-13] MEDS ORDERED: TRANEXAMIC ACID 1,000 MG/10 ML VIAL ONE (14:45)
[2021-04-13] MEDS ORDERED: ceFAZolin 3,000 MG in SODIUM CHLORIDE 0.9% IRRIGATIO 3,000 ML IRRIGATION ONE (14:56)
[2021-04-13] MEDS ORDERED: LACTATED RINGERS 1,000 ML IV ONE ×3 (15:13→18:30)
[2021-04-13] MEDS ORDERED: HYDROmorphone 0.5 MG/0.5 ML SYRINGE IVP PRN (16:18)
[2021-04-13] MEDS ORDERED: ONDANSETRON 4 MG/2 ML VIAL IVP PRN (16:18)
[2021-04-13] MEDS ORDERED: HYDROcodone/APAP 5-325MG 1 EACH TAB PO PRN (16:18)
[2021-04-13] MEDS ORDERED: NALOXONE 0.4 MG/ML 1 ML VIAL IV PRN (16:18)
[2021-04-13] MEDS ORDERED: HYDROmorphone 0.2 MG/1 ML SYRINGE IVP PRN (16:18)
[2021-04-13] MEDS ORDERED: HYDROmorphone 1 MG/ML 1 ML SYRINGE IVP PRN (16:18)
--- NOTE | 2021-04-13 16:18 | P.OP ---
Date of Procedure: 04/13/21 Preoperative Diagnosis: Right knee osteoarthritis Postoperative Diagnosis: Right knee osteoarthritis Procedure(s) Performed: Right total knee arthroplasty Implants: 1. Depuy attune size 4 narrow right cruciate retaining cemented femur 2. Depuy attune size 4 fixed bearing cemented tibial baseplate 3. Depuy attune size 4 fixed bearing cruciate retaining 5 mm polyethylene tibial insert 4. Depuy attune 38 mm all polyethylene cemented patella Anesthesia: GETA, regional (Adductor canal catheter) Surgeon: Ar Edge Paper Control Clerk #1: Killian Craig Estimated Blood Loss (ml): 40 Pathology: other (Bone) Condition: stable Disposition: PACU Indications for Procedure: 66-year-old patient seen with symptomatic right knee osteoarthritis. After having treatment options discussed, she elected to proceed with total knee art hroplasty. Operative Findings: See description of procedure Description of Procedure: Patient was taken to the operative suite after having an adductor canal catheter placed by the department of anesthesia. Patient underwent a general anesthetic by the department of anesthesia. Patient was given preoperative IV intake antibiotics and TXA. A well-padded tourniquet was placed about the by lower extremity. The lower extremity was then prepped and draped in the normal sterile orthopedic fashion. The extremity was elevated, a tourniquet was i nsufflated to 300. A standard anterior incision was made sharply through skin. Dissection was taken down through the subcutaneous soft tissues down to the extensor mechanism. A medial arthrotomy was performed, patella was everted and knee was flexed. There was advanced osteoarthritis noted. I introduced my distal intramedullary femoral drill. I then introduced the distal femoral cutting jig. Bam FELDER secured the cutting jig with 2 pins. I held retractors in position while Bam FELDER performed the distal femoral resection through the guide area we now removed her distal femoral cutting guide. We now placed our 4-in-1 femoral cutting block and positioned and it was secured with 2 pins by Bam FELDER while I held the block in position. The distal femoral finishing was now completed. A proximal tibial cutting guide was positioned. I held the guide in the appropriate position with both hands well Bam FELDER inserted stabilizing pins into the guide. Proximal tibial cut was made. We now placed a trial femoral component into position, along with an appropriate size tibial tray and insert. We now took the knee through range of motion and had full extension good flexion and good overall soft tissue balance noted. The patella was everted and stabilized with 2 towel clips held by Bam FELDER while I performed a flush with patellar quad tendon utilizing a fresh sawblade. We templated the patella, appropriate drill holes were made. An appropriate trial patella was positioned, knee was taken through full range of motion with the patella tracking very nicely. The trial patella was removed. Drill holes were made through the femoral component. All trial components were removed after marking off the appropriate rotation of the tibia. Retractors wer e now positioned along the proximal tibia. An appropriate keel punch was made with the appropriate size tibial guide by myself on Bam FELDER assisted by holding retractors. At this point appropriate size implants were chosen and opened. The joint was irrigated copiously with pulse lavage mechanical irrigation. The posterior capsule was infiltrated with local analgesic. The wound was irrigated with pulse lavage mechanical irrigation. We mixed antibiotic methylmethacrylate. We placed the knee into flexion. We placed multiple retractors assisted by Bam FELDER to expose the proximal tibia. Once the methyl methacrylate was ready, the tibial component was cemented into place removing any excess methylmethacrylate form by both myself and Bam FELDER. The femoral component was cemented into place removing the removing any excess methylmethacrylate performed by both myself and Bam FELDER. We then inserted the appropriate size polyethylene tibial insert. We made sure that it was locked into position. We took the knee into full extension, and then back in a flexion making sure we had removed any excess methylmethacrylate. The patellar component was then cemented down and secured with clamp. Excess methylmethacrylate removed. We kept the knee in full extension, patellar clamp in position until methylmethacrylate had hardened. Once it had hardened the patellar clamp was removed. The knee was taken through full range of motion. The patella tracked nicely. There was good soft tissue balancing. The tourniquet was now released. Additional hemostasis was achieved via electrocautery. A second gram of TXA was given. The wound again was irrigated with pulse lavage mechanical irrigation. The extensor mechanism was repaired with Ethibond. We checked the repair with range of motion and it was stable. The subcutaneous soft tissues were repaired with Vicryl in layers. The skin was approximated with pernio/Dermabond. Sterile dressings were applied followed by loose web roll and Alejandro bandage. The patient was transferred to a bed, and taken to recovery in stable and satisfactory condition. Bam FELDER assisted with this complex procedure.
[2021-04-13] MEDS ORDERED: LABETALOL SYRINGE 5 MG/ML IVP ONE (17:17)
--- NOTE | 2021-04-13 18:08 | XR ---
EXAMINATION TYPE: XR knee limited RT DATE OF EXAM: 04/13/2021 5:28 PM INDICATION: Patient age:Female; 66 years old; Reason for study: Evaluation for Postop abnormality and alignment; COMPARISON: 04/08/2020 TECHNIQUE: The right knee was examined in 2 projections. FINDINGS: A total knee arthroplasty changes of the saphenous gas in the expected location of the surg ical bed. Atherosclerosis of the arterial vasculature. No evidence of acute fracture. Alignment is ap propriate. IMPRESSION: Interval post total knee arthroplasty changes without evidence of acute fracture or hardware failure. Alignment is adequate
[2021-04-13] MEDS: LACTATED RINGERS 1,000 ML IV SCH (19:00)
[2021-04-13] MEDS: HYDROcodone/APAP 5-325MG 1 EACH TAB PO PRN (20:10)
[2021-04-13] MEDS ORDERED: SENNOSIDES-DOCUSATE SODIUM 1 EACH TAB PO SCH (21:00)
[2021-04-13] MEDS ORDERED: DIPHENOX-ATROP 2.5-0.025 MG 1 EACH TAB PO PRN (22:28)
[2021-04-13] MEDS ORDERED: ATORVASTATIN 80 MG TAB PO SCH (22:30)
[2021-04-13] MEDS ORDERED: traZODone HCL 50 MG TAB PO SCH (22:30)
[2021-04-13] MEDS: METOPROLOL TARTRATE 50 MG TAB PO SCH (23:24)
[2021-04-14 03:53] VITALS: PULSE 64
[2021-04-14] MEDS: HYDROcodone/APAP 5-325MG 1 EACH TAB PO PRN (05:14)
[2021-04-14] MEDS: LACTATED RINGERS 1,000 ML IV SCH (05:20)
[2021-04-14 07:13] VITALS: BP 88/54; RESP 17; TEMP 98.6
[2021-04-14] MEDS ORDERED: PANTOPRAZOLE 40 MG TABLET PO SCH (07:30)
[2021-04-14] MEDS: METOPROLOL TARTRATE 50 MG TAB PO SCH (08:55)
[2021-04-14] MEDS ORDERED: lisinopriL 5 MG TAB PO SCH (09:00)
[2021-04-14] MEDS ORDERED: ENOXAPARIN 30 MG/0.3 ML SYRINGE SQ SCH (09:00)
[2021-04-14] MEDS ORDERED: ISOSORBIDE MONONITRATE ER 30 MG TAB.ER.24H PO SCH (09:00)
[2021-04-14] MEDS ORDERED: CHLORTHALIDONE 25 MG TAB PO SCH (09:00)
[2021-04-14] MEDS ORDERED: CITALOPRAM HYDROBROMIDE 20 MG TAB PO SCH (09:00)
--- NOTE | 2021-04-14 09:23 | P.PN ---
Progress Note - Text Progress Note Date: 04/14/21 Patient seen at 645 am Postoperative day # 1 status post total knee arthroplasty, on adductor canal perineural catheter placed for postoperative analgesia. Ropivacaine 0.2% 8 mL per hour through ON-Q pump continuous infusion. Pain is well controlled. On visual analog scale 5/10 Patient is taking PRN oral pain medications. Catheter site: Looks Ok. There is no erythema or tenderness. Continue with the current pain management plan and will follow.
[2021-04-14 09:59] LABS: Basophils # (A) 0.02 X 10*3/uL (0.00-0.10); Basophils % (A) 0.3 %; Eosinophils # (A) 0 X 10*3/uL (0.04-0.35); Eosinophils % (A) 0 %; HGB 7.3 g/dL (12.0-15.0); Immature Grans, Automated 0.4 %; Lymphocytes # (A) 1.12 X 10*3/uL (0.90-5.00); Lymphocytes % (A) 15.7 %; MCH 24.3 pg (27.0-32.0); MCHC 29.2 g/dL (32.0-37.0); MCV 83.3 fL (80.0-97.0); Mean Platelet Volume 9.7 fL (9.5-12.2); Monocytes % (A) 8.4 %; NRBC Per 100 WBC 0 /100 WBCS (0.0-0.0); Neutrophils # (A) 5.38 X 10*3/uL (1.80-7.70); Neutrophils % (A) 75.2 %; Platelet Count 208 X 10*3/uL (140-440); WBC 7.15 X 10*3/uL (4.50-10.00)
--- NOTE | 2021-04-14 10:48 | P.DS ---
Providers Date of admission: 04/13/2021 Expected date of discharge: 04/14/21 Attending physician: Ar Edge Consults: 04/13/21 16:18 Consult Physician Routine Consulting Provider: Camila Desai Consult Reason/Comments: Medical management Do you want consulting provider notified?: Yes [facility] [place] [facility] Course: Date of admission: 04/13/2021 Date of discharge: 04/14/2021 Admission diagnosis: Right knee osteoarthritis Discharge diagnosis: Same Attending physician: Dr. Edge Surgical procedures: Right total knee arthroplasty Brief history: Patient is a 66-year-old female with a history of progressive primary right knee osteoarthritis. At this point patient has failed conservative treatment measures and has opted to proceed with a elective right total knee arthroplasty. Hospital course: Details of patient's surgery can be found in operative report. Patient tolerated the procedure well and was subsequently transported to orthopedic floor. Patient's orthopeidc and medical care was provided daily. Patient had daily laboratory tests performed for evaluation of overall blood counts. Patient had daily physical therapy to include strengthening range of motion as well as education with walker ambulation. Patient was treated with Lovenox for their postoperative DVT prophylaxis during their inpatient stay. Patient was noted to have a relatively uneventful postoperative course. Patient reported satisfactory pain control with oral pain medications by postoperative day 1. Patient showed satisfactory progress with physical therapy. Patient moved steadily through the program and had no difficulty meeting the goals by postoperative day 1. Given patient's otherwise satisfactory course and having met physical therapy goals, plan is to discharge patient home on postoperative day 1. Discharge condition/disposition: Patient will be discharged home in stable condition. Discharge medications: Instructions are given on resumption of patient's normal daily medications per primary care recommendation, in addition patient will be prescribed [place] 5 mg/325 mg; Colace; aspirin 325 mg (resume once home). Discharge instructions: 1. Wound care and infection precautions, keep incision dry and covered while showering, no lotions, creams, moisturizers. No soaking, tubs, pools, hottubs. Do not scrub over the incision. 2. Weight-bear as tolerated with walker / cane until follow-up. 3. Ice and elevate when necessary. Do not exceed 20 minutes per hour with ice pack. 4. Utilize compression sleeve until seen at first follow up appointment. 5. Visiting nursing care. 6. Home physical therapy including home CPM. 7. Pain meds and anticoagulants per prescription. 8. Pain medication has potential to cause constipation. Increase oral fluid and fiber intake. Contact primary care provider if you have not had a bowel movement within 48 hours after discharge 9. No anti-inflammatory medication until discussed at first post operative visit, this including Motrin, Aleve, Mobic, Diclofenac. 10. Follow up in office at 2 weeks postop with Bam Craig PA-C / Raj Cameron PA-C 11. Follow up with your primary care doctor 7-10 days after discharge. 12. Contact [facility] with any questions, . Keep incision clean, dry, intact. Keep silver foam dressing on until 04/20/2021. While showering, cover incision with Saran wrap. Medications: [place] 5 mg/325mg; Colace; resume aspirin 325 mg daily once home Assessment: Right knee osteoarthritis Procedures: Right total knee arthroplasty Patient Condition at Discharge: Good Plan - Discharge Summary Discharge Rx Participant: Yes New Discharge Prescriptions: New HYDROcodone/APAP 5-325MG [[place] 5-325] 1 tab PO Q6HR PRN #36 tab PRN Reason: Pain Docusate [Colace] 100 mg PO DAILY #30 capsule No Action Isosorbide Mononitrate [Imdur] 30 mg PO QAM Aspirin EC [Ecotrin] 325 mg PO DAILY Atorvastatin [Lipitor] 80 mg PO HS Metoprolol Tartrate [Lopressor] 50 mg PO BID Chlorthalidone 25 mg PO QAM lisinopriL [Zestril] 5 mg PO QAM Omeprazole 20 mg PO QAM Diphenox-Atrop 2.5-0.025 mg [Lomotil] 2 tab PO QID PRN PRN Reason: Diarrhea traZODone HCL 50 mg PO HS Citalopram Hydrobromide [CeleXA] 40 mg PO QAM Albuterol Inhaler (Mhu) [Ventolin Hfa Inhaler (Mhu)] 1 - 2 puff INHALATION RT-Q6H PRN PRN Reason: Dyspnea Hydroxychloroquine Sulfate [Plaquenil] 200 mg PO BID Discharge Medication List Isosorbide Mononitrate [Imdur] 30 mg PO QAM 11/22/13 [History] Aspirin EC [Ecotrin] 325 mg PO DAILY 07/02/15 [History] Atorvastatin [Lipitor] 80 mg PO HS 01/19/17 [History] Chlorthalidone 25 mg PO QAM 01/19/17 [History] Metoprolol Tartrate [Lopressor] 50 mg PO BID 01/19/17 [History] Omeprazole 20 mg PO QAM 01/19/17 [History] lisinopriL [Zestril] 5 mg PO QAM 01/19/17 [History] Diphenox-Atrop 2.5-0.025 mg [Lomotil] 2 tab PO QID PRN 01/24/17 [History] Albuterol Inhaler (Mhu) [Ventolin Hfa Inhaler (Mhu)] 1 - 2 puff INHALATION RT- Q6H PRN 02/26/19 [History] Citalopram Hydrobromide [CeleXA] 40 mg PO QAM 02/26/19 [History] traZODone HCL 50 mg PO HS 02/26/19 [History] Hydroxychloroquine Sulfate [Plaquenil] 200 mg PO BID 01/26/21 [History] Docusate [Colace] 100 mg PO DAILY #30 capsule 04/14/21 [Rx] HYDROcodone/APAP 5-325MG [[place] 5-325] 1 tab PO Q6HR PRN #36 tab 04/14/21 [Rx] Follow up Appointment(s)/Referral(s): [facility], [NON-STAFF] - As Needed Activity/Diet/Wound Care/Special Instructions: Discharge instructions: 1. Wound care and infection precautions, keep incision dry and covered while showering, no lotions, creams, moisturizers. No soaking, tubs, pools, hottubs. Do not scrub over the incision. 2. Weight-bear as tolerated with walker / cane until follow-up. 3. Ice and elevate when necessary. Do not exceed 20 minutes per hour with ice pack. 4. Utilize compression sleeve until seen at first follow up appointment. 5. Visiting nursing care. 6. Home physical therapy including home CPM. 7. Pain meds and anticoagulants per prescription. 8. Pain medication has potential to cause constipation. Increase oral fluid and fiber intake. Contact primary care provider if you have not had a bowel movement within 48 hours after discharge 9. No anti-inflammatory medication until discussed at first post operative visit, this including Motrin, Aleve, Mobic, Diclofenac. 10. Follow up in office at 2 weeks postop with Bam Craig PA-C / Raj Cameron PA-C 11. Follow up with your primary care doctor 7-10 days after discharge. 12. Contact [facility] with any questions, . Keep incision clean, dry, intact. Keep silver foam dressing on until 04/20/2021. While showering, cover incision with Saran wrap. Medications: [place] 5 mg/325mg; Colace; resume aspirin 325 mg daily once home Discharge Disposition: HOME WITH HOME HEALTH SERVICES
[2021-04-14] MEDS ORDERED: MULTIVITAMINS, THERA 1 EACH TAB PO SCH (12:00)
--- NOTE | 2021-04-14 13:12 | P.CONS ---
History of Present Illness - History of Present Illness Patient is 72-year-old female admitted for right knee arthroplasty for osteoa rthritis. Patient's excellent and surgery is passing gas. Patient is feeling better patient is well controlled at this time. Patient blood pressure is extremely low. Patient is on lisinopril, chlorthalidone, beta sherri. Blood pressure is extremely low postoperatively. She denied any dizziness lightheadedness. REVIEW OF SYSTEMS: CONSTITUTIONAL: No fever, no malaise, no fatigue. HEENT: No recent visual problems or hearing problems. Denied any sore throat. CARDIOVASCULAR: No chest pain, orthopnea, PND, no palpitations, no syncope. PULMONARY: No shortness of breath, no cough, no hemoptysis. GASTROINTESTINAL: No diarrhea, no nausea, no vomiting, no abdominal pain. NEUROLOGICAL: No headaches, no weakness, no numbness. HEMATOLOGICAL: Denies any bleeding or petechiae. GENITOURINARY: Denies any burning micturition, frequency, or urgency. MUSCULOSKELETAL/RHEUMATOLOGICAL: Denies any joint pain, swelling, or any muscle pain. ENDOCRINE: Denies any polyuria or polydipsia. The rest of the 14-point review of systems is negative. PHYSICAL EXAMINATION: GENERAL: The patient is alert and oriented x3, not in any acute distress. Well developed, well nourished. HEENT: Pupils are round and equally reacting to light. EOMI. No scleral icterus. No conjunctival pallor. Normocephalic, atraumatic. No pharyngeal erythema. No thyromegaly. CARDIOVASCULAR: S1 and S2 present. No murmurs, rubs, or gallops. PULMONARY: Chest is clear to auscultation, no wheezing or crackles. ABDOMEN: Soft, nontender, nondistended, normoactive bowel sounds. No palpable organomegaly. MUSCULOSKELETAL: No joint swelling or deformity. EXTREMITIES: No cyanosis, clubbing, or pedal edema. NEUROLOGICAL: Gross neurological examination did not reveal any focal deficits. SKIN: No rashes. Assessment and plan -Hypertension: Patient is presently hypotensive which is expected in most people in the perioperative period I recommend to hold off on lisinopril for the next couple days and start taking it once her blood pressure starts going up. Asked her to hold off on chlorthalidone until seen by primary care physician patient can continue her beta sherri. -severe anemia: Patient has a normocytic anemia patient most probably has chronic anemia with some competent of acute bleed from surgery patient was in hemoglobin is 7.4 patient will let further benefit from workup for B12, folate deficiency along with iron deficiency which can be done as an outpatient. Most probably has, Iron deficiency and/or folate deficiency -Coronary artery disease: Patient had stents in the past as well as CABG -COPD without any acute exacerbation patient quit smoking many years ago -Gases patient reflux disease -The right arthritis -Peripheral vascular disease -right knee arthroplasty: Management as per primary service DVT prophylaxis: As per primary service Past Medical History Past Medical History: Coronary Artery Disease (CAD), Cancer, Chest Pain / Angina, COPD, CVA/TIA, GERD/Reflux, Hyperlipidemia, Hypertension, Osteoarthritis (OA), Rheumatoid Arthritis (RA), Skin Disorder, Vascular Disorder Additional Past Medical History / Comment(s): chronic back pain., scoliosis., heart murmur, SOB w/activity, hx of gastric ulcer, cervical cancer, eczema, TIA ., frequent diarrhea., hepatitis C with tx. History of Any Multi-Drug Resistant Organisms: None Reported Past Surgical History: Section, Cholecystectomy, Coronary Bypass/CABG, Heart Catheterization, Heart Catheterization With Stent, Orthopedic Surgery, Tubal Ligation Additional Past Surgical History / Comment(s): triple CABG 2008, ORIF right leg, ., heart cath with stent 2013(Mph)., heart cath no stent (2019). Past Anesthesia/Blood Transfusion Reactions: No Reported Reaction Date of Last Stent Placement:: 2013 Past Psychological History: Anxiety, Depression Smoking Status: Former smoker Past Alcohol Use History: Rare Additional Past Alcohol Use History / Comment(s): started smoking age 18, past hx of 1ppd Past Drug Use History: None Reported - Past Family History Father Family Medical History: Cancer, Dementia Additional Family Medical History / Comment(s): AT AGE 84-LUNG CANCER. Mother Family Medical History: Coronary Artery Disease (CAD) Additional Family Medical History / Comment(s): AT AGE 73. Brother(s) Family Medical History: Cancer Medications and Allergies Home Medications Medication Instructions Recorded Confirmed Type Isosorbide Mononitrate [Imdur] 30 mg PO QAM 11/22/13 04/08/21 History Aspirin EC [Ecotrin] 325 mg PO DAILY 07/02/15 04/08/21 History Atorvastatin [Lipitor] 80 mg PO HS 01/19/17 04/08/21 History Metoprolol Tartrate [Lopressor] 50 mg PO BID 01/19/17 04/08/21 History Omeprazole 20 mg PO QAM 01/19/17 04/08/21 History Diphenox-Atrop 2.5-0.025 mg 2 tab PO QID PRN 01/24/17 04/08/21 History [Lomotil] Albuterol Inhaler ([facility]hu) [Ventolin 1 - 2 puff INHALATION RT-Q6H PRN 02/26/19 04/08/21 History Hfa Inhaler ([facility]hu)] Citalopram Hydrobromide [CeleXA] 40 mg PO QAM 02/26/19 04/08/21 History traZODone HCL 50 mg PO HS 02/26/19 04/08/21 History Hydroxychloroquine Sulfate 200 mg PO BID 01/26/21 04/08/21 History [Plaquenil] Chlorthalidone 25 mg PO QAM #0 04/14/21 04/08/21 Rx Docusate [Colace] 100 mg PO DAILY #30 capsule 04/14/21 Rx HYDROcodone/APAP 5-325MG [[place] 1 tab PO Q6HR PRN #36 tab 04/14/21 Rx 5-325] lisinopriL [Zestril] 5 mg PO QAM #0 04/14/21 04/08/21 Rx Allergies Allergy/AdvReac Type Severity Reaction Status Date / Time codeine AdvReac Nausea & Verified 04/13/21 13:19 Vomiting Physical Exam Vitals: Vital Signs Temp Pulse Pulse Resp BP Pulse Ox 04/14/21 07:12 98.6 F 64 17 88/54 100 04/14/21 02:00 98.5 F 64 16 90/43 98 04/13/21 18:45 83 16 149/63 97 04/13/21 18:25 84 16 156/70 97 04/13/21 18:10 81 16 157/70 97 04/13/21 17:45 80 16 145/67 100 04/13/21 17:30 79 16 164/63 99 04/13/21 17:13 81 16 182/73 98 04/13/21 16:58 80 16 184/72 98 04/13/21 16:43 97.3 F L 70 16 189/77 99 04/13/21 14:35 69 20 144/63 99 04/13/21 13:23 97.7 F 68 20 173/72 99 Intake and Output 04/13/21 04/14/21 04/14/21 22:59 06:59 14:59 Intake Total 800 2540 Output Total 40 Balance 760 2540 Intake: IV 800 Intake, IV Titration 1100 Amount Lactated Ringers 1,000 ml 1000 @ 70 mls/hr IV .[id number] [facility] Rx#:[id number] ceFAZolin 2 gm In Sodium 100 Chloride 0.9% 50 ml @ 100 mls/hr IVPB Q8H [facility] Rx#: [id number] Oral 1440 Output: Estimated Blood Loss 40 Other: Voiding Method Bedpan # Voids 2 # Bowel Movements 0 Weight 58.6 kg Results CBC & Chem 7: 04/14/21 05:51 Labs: Abnormal Lab Results - Last 24 Hours (Table) 04/14/21 Range/Units 05:51 RBC 3.00 L (4.10-5.20) X 10*6/uL Hgb 7.3 L (12.0-15.0) g/dL Hct 25.0 L (37.2-46.3) % MCH 24.3 L (27.0-32.0) pg MCHC 29.2 L (32.0-37.0) g/dL RDW 16.0 H (11.5-14.5) % Eosinophils # 0 L (0.04-0.35) X 10*3/uL
--- NOTE | 2021-04-14 13:54 | P.PN ---
Subjective Progress Note Date: 04/14/21 Principal diagnosis: Right knee osteoarthritis Patient was seen at bedside this morning resting sitting in chair with legs elevated. Patient states that most the pain is at the backside of her knee. Patient states she did get up with physical therapy this morning and it went we ll and she walked down the [place]. Patient says she has not had bowel movement yet, however, patient says she has been passing gas. Patient says she has been using incentive spirometer. Patient says she does have a walker for home.. Patient denies chest pain, fever, shortness breath, nausea,, change in vision, loss of bowel/bladder control. Objective - Vital Signs Vital signs: Vital Signs Temp 98.6 F 04/14/21 07:12 Pulse 64 04/14/21 07:12 Resp 17 04/14/21 07:12 BP 88/54 04/14/21 07:12 Pulse Ox 100 04/14/21 07:12 Intake & Output 04/13/21 04/14/21 04/14/21 18:59 06:59 18:59 Intake Total 1851 2540 Output Total 40 Balance 1811 2540 Weight 58.6 kg 58.6 kg Intake: IV 1851 Intake, IV Titration 1100 Amount Lactated Ringers 1,000 ml 1000 @ 70 mls/hr IV .[id number] [facility] Rx#:[id number] ceFAZolin 2 gm In Sodium 100 Chloride 0.9% 50 ml @ 100 mls/hr IVPB Q8H [facility] Rx#: [id number] Oral 1440 Output: Estimated Blood Loss 40 Other: Voiding Method Bedpan # Voids 2 # Bowel Movements 0 - Exam Right knee: Incision is clean, dry, and intact. The silver foam dressing is in good condition. There is minimal soft tissue swelling and ecchymosis surrounding the medial and lateral aspects of the incision. Calf is soft, no tenderness with palpation. Plantar flexion, dorsiflexion, EHL, FHL are intact. Sensory exam to light touch throughout the extremity is intact, dorsal pedis pulses 2+. - Labs CBC & Chem 7: 04/14/21 05:51 Labs: Abnormal Lab Results - Last 24 Hours (Table) 04/14/21 Range/Units 05:51 RBC 3.00 L (4.10-5.20) X 10*6/uL Hgb 7.3 L (12.0-15.0) g/dL Hct 25.0 L (37.2-46.3) % MCH 24.3 L (27.0-32.0) pg MCHC 29.2 L (32.0-37.0) g/dL RDW 16.0 H (11.5-14.5) % Eosinophils # 0 L (0.04-0.35) X 10*3/uL Assessment and Plan Assessment: Right knee osteoarthritis Postoperative day 1 status post right total knee arthroplasty Plan: 1. Right knee osteoarthritis - right total knee arthroplasty performed yesterday, Tuesday, to 04/13/2021. Patient stable at bedside this morning. Plan discharge home with health services today 2. Appreciate medical management 3. Pain management - going home with [place] 5 mg/325 mg 4. GI prophylaxis - going home with Colace 5. DVT prophylaxis - aspirin 81 mg twice a day 30 days 6. PT/OT - weightbearing as tolerated with walker 7. Encourage incentive spirometer use 8. Discharge planning - discharge home today with health services Time with Patient: Less than 30
== END 2021-04-14 14:00 | disposition home health service (06) ==
LOC: OR 13:00 → 4SSUR 16:40 → OR 04-14 14:00
PROVIDERS: ATTEND Orthopaedic Surgery
DX: M17.11 Unilateral primary osteoarthritis, right knee (principal); Z20.822 Contact with and (suspected) exposure to COVID-19
CPT/HCPCS: 27447; 97161; 97535; 97165; 64999; 64448; 76942; 86900; 86901; 85025; 86850; 88300; 87635; 73560; C1776; C1713; J2250; J1100; J0690 ×3; J2405; J2001; J3010; J1650; J1170; J2795 ×2; J2704

== ENCOUNTER 2021-04-26 13:49 | Inpatient (IN) | payer MEDICARE, OTHER ==
[2021-04-26] MEDS ORDERED: ONDANSETRON 4 MG/2 ML VIAL IVP STA (14:29)
[2021-04-26] MEDS ORDERED: HYDROmorphone 0.5 MG/0.5 ML SYRINGE IVP STA ×2 (14:29→16:26)
--- NOTE | 2021-04-26 15:07 | ED ---
Extremity Problem HPI - General Source: patient Mode of arrival: ambulatory Limitations: no limitations - History of Present Illness MD Complaint: extremity pain, extremity swelling Location: left, upper extremity History of Same: No Radiation: none Severity scale (1-10): 10 Consistency: constant Improves with: nothing <Sherine Kidd - Last Filed: 04/26/21 17:35> <Jeremiah Martinez - Last Filed: 04/26/21 18:33> - General Chief complaint: Extremity Problem,Nontraumatic Stated complaint: L hand pain Time Seen by Provider: 04/26/21 13:59 - History of Present Illness Initial comments: This is a 66 year old female with a PMHx of CAD, COPD, HLD, CVA, OA, and rheumatoid arthritis who presents to the emergency department after waking up with erythema and swelling to the left wrist. Denies any known injury. States that this is incredibly painful and she is barely able to move the wrist. She had a total right knee arthroplasty on 04/13 and she states that this is much more painful. She has a longstanding history of rheumatoid arthritis, however she denies having any similar symptoms in the past. Her daughter is at bedside and is very distraught over how much pain she is in. (Sherine Kidd) - Related Data Home Medications Medication Instructions Recorded Confirmed Isosorbide Mononitrate [Imdur] 30 mg PO QAM 11/22/13 04/08/21 Aspirin EC [Ecotrin] 325 mg PO DAILY 07/02/15 04/08/21 Atorvastatin [Lipitor] 80 mg PO HS 01/19/17 04/08/21 Metoprolol Tartrate [Lopressor] 50 mg PO BID 01/19/17 04/08/21 Omeprazole 20 mg PO QAM 01/19/17 04/08/21 Diphenox-Atrop 2.5-0.025 mg 2 tab PO QID PRN 01/24/17 04/08/21 [Lomotil] Albuterol Inhaler ([facility]hu) [Ventolin 1 - 2 puff INHALATION RT-Q6H PRN 02/26/19 04/08/21 Hfa Inhaler ([facility]hu)] Citalopram Hydrobromide [CeleXA] 40 mg PO QAM 02/26/19 04/08/21 traZODone HCL 50 mg PO HS 02/26/19 04/08/21 Hydroxychloroquine Sulfate 200 mg PO BID 01/26/21 04/08/21 [Plaquenil] Previous Rx's Medication Instructions Recorded Chlorthalidone 25 mg PO QAM #0 04/14/21 Docusate [Colace] 100 mg PO DAILY #30 capsule 04/14/21 HYDROcodone/APAP 5-325MG [[place] 1 tab PO Q6HR PRN #36 tab 04/14/21 5-325] lisinopriL [Zestril] 5 mg PO QAM #0 04/14/21 Allergies Allergy/AdvReac Type Severity Reaction Status Date / Time codeine AdvReac Nausea & Verified 04/26/21 13:56 Vomiting Review of Systems ROS Other: All systems not noted in ROS Statement are negative. Constitutional: Denies: fever, chills Respiratory: Denies: cough, dyspnea Cardiovascular: Denies: chest pain, palpitations Gastrointestinal: Denies: abdominal pain, nausea, vomiting Musculoskeletal: Reports: other (Left wrist swelling and pain). Denies: back pain Skin: Reports: other (Erythema of the left wrist) Neurological: Denies: headache <Sherine Kidd - Last Filed: 04/26/21 17:35> ROS Other: All systems not noted in ROS Statement are negative. <Jeremiah Martinez - Last Filed: 04/26/21 18:33> ROS Statement: Those systems with pertinent positive or pertinent negative responses have been documented in the HPI. Past Medical History Past Medical History: Coronary Artery Disease (CAD), Cancer, Chest Pain / Angina, COPD, CVA/TIA, GERD/Reflux, Hyperlipidemia, Hypertension, Osteoarthritis (OA), Rheumatoid Arthritis (RA), Skin Disorder, Vascular Disorder Additional Past Medical History / Comment(s): chronic back pain., scoliosis., heart murmur, SOB w/activity, hx of gastric ulcer, cervical cancer, eczema, TI A ., frequent diarrhea., hepatitis C with tx. History of Any Multi-Drug Resistant Organisms: None Reported Past Surgical History: Section, Cholecystectomy, Coronary Bypass/CABG, Heart Catheterization, Heart Catheterization With Stent, Orthopedic Surgery, Tubal Ligation Additional Past Surgical History / Comment(s): triple CABG 2008, ORIF right leg, ., heart cath with stent 2014([facility]ph)., heart cath no stent (2019). Past Anesthesia/Blood Transfusion Reactions: No Reported Reaction Date of Last Stent Placement:: 2013 Past Psychological History: Anxiety, Depression Smoking Status: Former smoker Past Alcohol Use History: Rare Past Drug Use History: None Reported - Past Family History Father Family Medical History: Cancer, Dementia Additional Family Medical History / Comment(s): AT AGE 84-LUNG CANCER. Mother Family Medical History: Coronary Artery Disease (CAD) Additional Family Medical History / Comment(s): AT AGE 73. Brother(s) Family Medical History: Cancer <Sherine Kidd - Last Filed: 04/26/21 17:35> General Exam Limitations: no limitations General appearance: alert, in distress Head exam: Present: atraumatic, normocephalic, normal inspection Respiratory exam: Present: normal lung sounds bilaterally. Absent: respiratory distress, wheezes, rales, rhonchi, stridor Cardiovascular Exam: Present: regular rate, normal rhythm, normal heart sounds. Absent: systolic murmur, diastolic murmur, rubs, gallop, clicks Left Hand Wrist exam: Present: other (Erythema, swelling, and tenderness along the dorsal aspect of the left wrist with significantly reduced ROM) Neurological exam: Present: alert, oriented X3, CN II-XII intact Psychiatric exam: Present: normal affect, normal mood Skin exam: Present: warm, dry, intact, normal color. Absent: rash <Sherine Kidd - Last Filed: 04/26/21 17:35> Course - Reevaluation(s) Time: 16:00 (Patient resting comfortably, states that the pain has improved with the dilauded.) <Sherine Kidd - Last Filed: 04/26/21 17:35> <Jeremiah Martinez - Last Filed: 04/26/21 18:33> Vital Signs 04/26/21 04/26/21 13:50 17:23 Temperature 97.9 F Pulse Rate 59 L 56 L Respiratory 18 18 Rate Blood Pressure 140/62 92/44 O2 Sat by Pulse 99 97 Oximetry - Reevaluation(s) Reevaluation #1: 04/26/21 18:33 Sinus rhythm with rate of 60. ND 150. QRS 84. QT 490. QTC 490. Normal axis. Normal QRS. Biphasic T waves. (Jeremiah Martinez) Medical Decision Making - Lab Data Result diagrams: 04/26/21 15:01 04/26/21 16:25 - Radiology Data Radiology results: report reviewed, image reviewed <Sherine Kidd - Last Filed: 04/26/21 17:35> - Lab Data Result diagrams: 04/26/21 15:01 04/26/21 16:25 <Jeremiah Martinez - Last Filed: 04/26/21 18:33> - Medical Decision Making This is a 66 year old female who presents to the emergency department with left wrist pain and swelling. US obtained which did not reveal evidence for a DVT. X- ray revealed soft tissue swelling but no acute bony abnormalities. This may be related to infection or a flare up of the rheumatoid arthritis. She has had pain treated with two doses of Dilauded 0.5mg, which has been fairly effective. Initial potassium read as critically low at 2.7. Repeat potassium ordered with magnesium and phosphate in the event the original sample was drawn off of the IV and diluted. Repeat potassium also low as well as magnesium. Potassium replaced at 20 meq IV and 40 meq PO per the recommendation of ED attending. Magnesium replaced at 2mg and the patient was placed on the ekg monitor. Will plan to admit the patient given the severely abnormal electrolytes and have orthopedics consult on the patient. (Sherine Kidd) - Lab Data Lab Results 04/26/21 04/26/21 04/26/21 Range/Units 15:01 15:01 15:01 WBC 5.9 (3.8-10.6) k/uL RBC 3.52 L (3.80-5.40) m/uL Hgb 8.9 L (11.4-16.0) gm/dL Hct 29.2 L (34.0-46.0) % MCV 83.1 (80.0-100.0) fL MCH 25.4 (25.0-35.0) pg MCHC 30.6 L (31.0-37.0) g/dL RDW 18.2 H (11.5-15.5) % Plt Count 336 (150-450) k/uL MPV 6.8 Neutrophils % 69 % Lymphocytes % 23 % Monocytes % 6 % Eosinophils % 1 % Basophils % 0 % Neutrophils # 4.0 (1.3-7.7) k/uL Lymphocytes # 1.4 (1.0-4.8) k/uL Monocytes # 0.3 (0-1.0) k/uL Eosinophils # 0.0 (0-0.7) k/uL Basophils # 0.0 (0-0.2) k/uL Hypochromasia Marked Anisocytosis Slight ESR 36 H (0-20) mm/hr Sodium 133 L (137-145) mmol/L Potassium 2.7 L* (3.5-5.1) mmol/L Chloride 102 (98-107) mmol/L Carbon Dioxide 28 (22-30) mmol/L Anion Gap 3 mmol/L BUN 17 (7-17) mg/dL Creatinine 0.99 (0.52-1.04) mg/dL Est GFR (CKD-EPI)AfAm 70 (>60 ml/min/1.73 sqM) Est GFR (CKD-EPI)NonAf 61 (>60 ml/min/1.73 sqM) Glucose 102 H (74-99) mg/dL Plasma Lactic Acid Anand 1.0 (0.7-2.0) mmol/L Uric Acid 5.6 (3.7-7.4) mg/dL Calcium 8.6 (8.4-10.2) mg/dL Phosphorus (2.5-4.5) mg/dL Magnesium (1.6-2.3) mg/dL Total Bilirubin 0.5 (0.2-1.3) mg/dL AST 18 (14-36) U/L ALT 10 (4-34) U/L Alkaline Phosphatase 115 (38-126) U/L C-Reactive Protein 1.6 H (<1.0) mg/dL Total Protein 6.2 L (6.3-8.2) g/dL Albumin 3.1 L (3.5-5.0) g/dL 04/26/21 Range/Units 16:25 WBC (3.8-10.6) k/uL RBC (3.80-5.40) m/uL Hgb (11.4-16.0) gm/dL Hct (34.0-46.0) % MCV (80.0-100.0) fL MCH (25.0-35.0) pg MCHC (31.0-37.0) g/dL RDW (11.5-15.5) % Plt Count (150-450) k/uL MPV Neutrophils % % Lymphocytes % % Monocytes % % Eosinophils % % Basophils % % Neutrophils # (1.3-7.7) k/uL Lymphocytes # (1.0-4.8) k/uL Monocytes # (0-1.0) k/uL Eosinophils # (0-0.7) k/uL Basophils # (0-0.2) k/uL Hypochromasia Anisocytosis ESR (0-20) mm/hr Sodium (137-145) mmol/L Potassium 2.6 L* (3.5-5.1) mmol/L Chloride (98-107) mmol/L Carbon Dioxide (22-30) mmol/L Anion Gap mmol/L BUN (7-17) mg/dL Creatinine (0.52-1.04) mg/dL Est GFR (CKD-EPI)AfAm (>60 ml/min/1.73 sqM) Est GFR (CKD-EPI)NonAf (>60 ml/min/1.73 sqM) Glucose (74-99) mg/dL Plasma Lactic Acid Anand (0.7-2.0) mmol/L Uric Acid (3.7-7.4) mg/dL Calcium (8.4-10.2) mg/dL Phosphorus 4.4 (2.5-4.5) mg/dL Magnesium 1.2 L (1.6-2.3) mg/dL Total Bilirubin (0.2-1.3) mg/dL AST (14-36) U/L ALT (4-34) U/L Alkaline Phosphatase (38-126) U/L C-Reactive Protein (<1.0) mg/dL Total Protein (6.3-8.2) g/dL Albumin (3.5-5.0) g/dL Disposition <Sherine Kidd - Last Filed: 04/26/21 17:35> <Jeremiah Martinez - Last Filed: 04/26/21 18:33> Clinical Impression: Hypokalemia, Arthropathy of left wrist Disposition: ADMITTED IP TO THIS HOSP
[2021-04-26 15:32] LABS: Anisocytosis Slight; Basophils % (A) 0 %; Eosinophils % (A) 1 %; HCT 29.2 % (34.0-46.0); HGB 8.9 gm/dL (11.4-16.0); Hypochromasia Marked; Lymphocytes # (A) 1.4 k/uL (1.0-4.8); Lymphocytes % (A) 23 %; MCH 25.4 pg (25.0-35.0); MCHC 30.6 g/dL (31.0-37.0); MCV 83.1 fL (80.0-100.0); Mean Platelet Volume 6.8; Monocytes # (A) 0.3 k/uL (0-1.0); Monocytes % (A) 6 %; Neutrophils % (A) 69 %; Platelet Count 336 k/uL (150-450); RBC 3.52 m/uL (3.80-5.40); RDW 18.2 % (11.5-15.5); WBC 5.9 k/uL (3.8-10.6)
[2021-04-26 15:40] LABS: Albumin 3.1 g/dL (3.5-5.0); Calcium 8.6 mg/dL (8.4-10.2); Total Bilirubin 0.5 mg/dL (0.2-1.3); Total Protein 6.2 g/dL (6.3-8.2); Uric Acid 5.6 mg/dL (3.7-7.4)
[2021-04-26 15:54] LABS: Potassium 2.7 mmol/L (3.5-5.1)
--- NOTE | 2021-04-26 16:21 | US ---
EXAMINATION TYPE: US venous doppler duplex UE LT DATE OF EXAM: 04/26/2021 COMPARISON: NONE CLINICAL HISTORY: pain and swelling. Left hand pain and swelling, patient states woke up at 6 am this morning with swelling and pain SIDE PERFORMED: Left Left Arm: Negative for DVT No DVT seen at this time. IMPRESSION: No sign of deep vein thrombosis in the left arm.
[2021-04-26 16:46] LABS: Erythrocyte Sedimentation Rate 36 mm/hr (0-20)
--- NOTE | 2021-04-26 16:53 | XR ---
EXAMINATION TYPE: XR wrist complete LT DATE OF EXAM: 04/26/2021 COMPARISON: NONE HISTORY: Wrist pain TECHNIQUE: 5 views FINDINGS: There is narrowing of the radiocarpal joint space. There is deformity of the lunate and sca phoid with sclerosis. There is moderate spurring at the first carpometacarpal joint. There are some c ystic changes in the distal radius. I see no acute fracture. There is soft tissue swelling around the carpus. There is probably erosion of the ulnar styloid process. IMPRESSION: Significant arthritic changes that could relate to long-standing inflammatory arthritis. Soft tissue swelling. No acute bony abnormality.
[2021-04-26 16:57] LABS: Magnesium 1.2 mg/dL (1.6-2.3); Phosphorus 4.4 mg/dL (2.5-4.5)
[2021-04-26 17:03] LABS: Potassium 2.6 mmol/L (3.5-5.1)
[2021-04-26] MEDS ORDERED: POTASSIUM CHLORIDE 20 MEQ in WATER FOR INJECTION 1 100ML.BAG IVPB STA (17:15)
[2021-04-26] MEDS ORDERED: POTASSIUM CHLORIDE ER 20 MEQ TAB.ER PO STA ×2 (17:15→23:56)
[2021-04-26] MEDS ORDERED: ONDANSETRON 4 MG/2 ML VIAL IVP PRN (17:39)
[2021-04-26] MEDS ORDERED: ACETAMINOPHEN TAB 325 MG TAB PO PRN (17:39)
[2021-04-26] MEDS ORDERED: NALOXONE 0.4 MG/ML 1 ML VIAL IV PRN (17:39)
[2021-04-26] MEDS ORDERED: LORazepam 0.5 MG TAB PO PRN (17:47)
[2021-04-26] MEDS ORDERED: KETOROLAC 30 MG/ML 1 ML VIAL IVP PRN (17:47)
[2021-04-26] MEDS ORDERED: KETOROLAC 15 MG/ML 1 ML VIAL IVP STA (17:53)
[2021-04-26 17:59] LABS: C Reactive Protein 1.6 mg/dL (<1.0)
[2021-04-26] MEDS: MAGNESIUM SULFATE-D5W PMX 1 GM in DEXTROSE/WATER 1 100ML.BAG IVPB SCH ×2 (18:13→20:04)
[2021-04-26] MEDS: HYDROmorphone 1 MG/ML 1 ML SYRINGE IVP PRN (23:06)
[2021-04-26] MEDS: ATORVASTATIN 80 MG TAB PO SCH (23:07)
[2021-04-26] MEDS: traZODone HCL 50 MG TAB PO SCH (23:07)
[2021-04-26] MEDS: HYDROXYCHLOROQUINE SULFATE 200 MG TAB PO SCH (23:07)
[2021-04-26] MEDS: METOPROLOL TARTRATE 50 MG TAB PO SCH (23:09)
[2021-04-26 23:39] LABS: Magnesium 2.3 mg/dL (1.6-2.3); Potassium 3.1 mmol/L (3.5-5.1)
[2021-04-26] MEDS ORDERED: Potassium Replacement Protocol 1 EACH MISC MISCELLANE PRN (23:52)
[2021-04-26] MEDS ORDERED: Magnesium Replacement Protocol 1 EACH MISC MISCELLANE PRN (23:56)
[2021-04-27] MEDS: METOPROLOL TARTRATE 50 MG TAB PO SCH ×2 (07:51→19:24)
[2021-04-27] MEDS: HYDROXYCHLOROQUINE SULFATE 200 MG TAB PO SCH ×2 (07:51→19:23)
--- NOTE | 2021-04-27 08:20 | P.CNOR ---
<Huong Verdugo Pearl - Last Filed: 04/27/21 11:39> History of Present Illness - [facility] Consult date: 04/27/21 Consult reason: joint pain (Left wrist pain and swelling) History of present illness: The patient is a 66 y/o female who presented to the emergency department yesterday with severe left wrist pain. She was found to have hypokalemia as well. The patient does have a history of RA and is on Plaquenil. She sees Dr. Woodward on an outpatient basis and has had cortisone injections in the left wrist in the past. She states she woke up yesterday morning with severe pain in the left wrist and she states is "felt broken." There was no injury. She denies fever and chills. Her CRP and sed rate in the ER were only mildly elevated. Orthopedic hand surgery was consulted for further evaluation and care of her left wrist pain. This morning, the patient states the wrist is still painful but her pain is much improved since admission. Review of Systems Constitutional: Denies chills, Denies fatigue, Denies fever Cardiovascular: Denies chest pain, Denies shortness of breath Respiratory: Denies cough Gastrointestinal: Denies diarrhea, Denies nausea, Denies vomiting Musculoskeletal: left: wrist pain, wrist stiffness, wrist swelling Past Medical History Past Medical History: Coronary Artery Disease (CAD), Cancer, Chest Pain / Angina, COPD, CVA/TIA, GERD/Reflux, Hyperlipidemia, Hypertension, Osteoarthritis (OA), Rheumatoid Arthritis (RA), Skin Disorder, Vascular Disorder Additional Past Medical History / Comment(s): chronic back pain., scoliosis., heart murmur, SOB w/activity, hx of gastric ulcer, cervical cancer, eczema, TIA ., frequent diarrhea., hepatitis C with tx. History of Any Multi-Drug Resistant Organisms: None Reported Past Surgical History: Section, Cholecystectomy, Coronary Bypass/CABG, Heart Catheterization, Heart Catheterization With Stent, Orthopedic Surgery, Tubal Ligation Additional Past Surgical History / Comment(s): triple CABG 2008, ORIF right leg, ., heart cath with stent 2013(Mph)., heart cath no stent (2019). Past Anesthesia/Blood Transfusion Reactions: No Reported Reaction Date of Last Stent Placement:: 2013 Past Psychological History: Anxiety, Depression Smoking Status: Former smoker Past Alcohol Use History: Rare Additional Past Alcohol Use History / Comment(s): started smoking age 18, past hx of 1ppd Past Drug Use History: None Reported - Past Family History Father Family Medical History: Cancer, Dementia Additional Family Medical History / Comment(s): AT AGE 84-LUNG CANCER. Mother Family Medical History: Coronary Artery Disease (CAD) Additional Family Medical History / Comment(s): AT AGE 73. Brother(s) Family Medical History: Cancer Medications and Allergies Home Medications Medication Instructions Recorded Confirmed Type Isosorbide Mononitrate [Imdur] 30 mg PO DAILY 11/22/13 04/26/21 History Aspirin EC [Ecotrin] 325 mg PO DAILY 07/02/15 04/26/21 History Metoprolol Tartrate [Lopressor] 50 mg PO BID 01/19/17 04/26/21 History Omeprazole 20 mg PO DAILY 01/19/17 04/26/21 History Diphenox-Atrop 2.5-0.025 mg 2 tab PO QID PRN 01/24/17 04/26/21 History [Lomotil] Citalopram Hydrobromide [CeleXA] 40 mg PO DAILY 02/26/19 04/26/21 History traZODone HCL 50 mg PO HS 02/26/19 04/26/21 History Hydroxychloroquine Sulfate 200 mg PO BID 01/26/21 04/26/21 History [Plaquenil] Docusate [Colace] 100 mg PO DAILY #30 capsule 04/14/21 04/26/21 Rx HYDROcodone/APAP 5-325MG [[place] 1 tab PO Q6HR PRN #36 tab 04/14/21 04/26/21 Rx 5-325] Atorvastatin [Lipitor] 80 mg PO HS 04/26/21 04/26/21 History Chlorthalidone 25 mg PO DAILY 04/26/21 04/26/21 History lisinopriL [Zestril] 5 mg PO DAILY 04/26/21 04/26/21 History Allergies Allergy/AdvReac Type Severity Reaction Status Date / Time codeine AdvReac Nausea & Verified 04/26/21 13:56 Vomiting Physical Examination The patient is a 66 y/o female in no acute distress. She is alert and oriented x3. Exam of the left wrist reveals moderate swelling throughout the wrist. Mild erythema to the dorsal wrist. No open wounds are present. There is pain to the radiocarpal joint and the ulnar side of the wrist on palpation. Limited ROM of the wrist due to pain and guarding. Neurological and circulatory status is intact. Results - Labs Labs: Abnormal Lab Results - Last 24 Hours (Table) 04/26/21 04/26/21 04/26/21 Range/Units 15:01 15:01 16:25 RBC 3.52 L (3.80-5.40) m/uL Hgb 8.9 L (11.4-16.0) gm/dL Hct 29.2 L (34.0-46.0) % MCHC 30.6 L (31.0-37.0) g/dL RDW 18.2 H (11.5-15.5) % ESR 36 H (0-20) mm/hr Sodium 133 L (137-145) mmol/L Potassium 2.7 L* 2.6 L* (3.5-5.1) mmol/L Glucose 102 H (74-99) mg/dL Magnesium 1.2 L (1.6-2.3) mg/dL C-Reactive Protein 1.6 H (<1.0) mg/dL Total Protein 6.2 L (6.3-8.2) g/dL Albumin 3.1 L (3.5-5.0) g/dL 04/26/21 Range/Units 22:47 RBC (3.80-5.40) m/uL Hgb (11.4-16.0) gm/dL Hct (34.0-46.0) % MCHC (31.0-37.0) g/dL RDW (11.5-15.5) % ESR (0-20) mm/hr Sodium (137-145) mmol/L Potassium 3.1 L (3.5-5.1) mmol/L Glucose (74-99) mg/dL Magnesium (1.6-2.3) mg/dL C-Reactive Protein (<1.0) mg/dL Total Protein (6.3-8.2) g/dL Albumin (3.5-5.0) g/dL H & H 04/26/21 Range/Units 15:01 Hgb 8.9 L (11.4-16.0) gm/dL Hct 29.2 L (34.0-46.0) % Result Diagrams: 04/26/21 15:01 04/27/21 05:02 - Diagnostic results Wrist/Hand x-ray: image reviewed (X-rays of the left wrist reveal severe RA arthropathy present in the radiocarpal joint. ) Assessment and Plan (1) Rheumatoid arthritis flare Current Visit: Yes Status: Acute Code(s): M06.9 - RHEUMATOID ARTHRITIS, UNSPECIFIED SNOMED Code(s): 471164395 Plan: The clinical and x-ray findings were discussed with the patient. There is a very suspicion for septic arthritis in the wrist. This is more likely an RA flare and antiinflammatories have helped her pain so far. Continue Toradol as needed while in the hospital and may take over the counter antiiflammatories as needed at home. She was advised to follow up with Dr. Woodward for a recheck on her RA and possible cortisone injection in the left wrist. She may be discharged home from an orthopedic standpoint. <Yajaira Payan - Last Filed: 04/27/21 15:54> Physical Examination Osteopathic Statement: *. No significant issues noted on an osteopathic structural exam other than those noted in the History and Physical/Consult. Results - Labs Labs: Abnormal Lab Results - Last 24 Hours (Table) 04/26/21 04/26/21 04/26/21 Range/Units 15:01 15:01 16:25 ESR 36 H (0-20) mm/hr Sodium 133 L (137-145) mmol/L Potassium 2.7 L* 2.6 L* (3.5-5.1) mmol/L Est GFR (CKD-EPI)NonAf (60.0-200.0) Glucose 102 H (74-99) mg/dL Calcium (8.7-10.3) mg/dL Magnesium 1.2 L (1.6-2.3) mg/dL Total Bilirubin (0.30-1.20) mg/dL AST (13-35) U/L C-Reactive Protein 1.6 H (<1.0) mg/dL Total Protein 6.2 L (6.3-8.2) g/dL Albumin 3.1 L (3.5-5.0) g/dL Albumin/Globulin Ratio (1.60-3.17) g/dL 02/20/22 02/21/22 02/21/22 Range/Units 22:47 05:02 11:57 ESR 36 H (0-20) mm/hr Sodium (137-145) mmol/L Potassium 3.1 L (3.5-5.1) mmol/L Est GFR (CKD-EPI)NonAf 53.0 L (60.0-200.0) Glucose (74-99) mg/dL Calcium 8.4 L (8.7-10.3) mg/dL Magnesium (1.6-2.3) mg/dL Total Bilirubin <0.15 L (0.30-1.20) mg/dL AST 11 L (13-35) U/L C-Reactive Protein (<1.0) mg/dL Total Protein 5.2 L (6.3-8.2) g/dL Albumin 2.9 L (3.5-5.0) g/dL Albumin/Globulin Ratio 1.26 L (1.60-3.17) g/dL 04/27/21 Range/Units 11:57 ESR (0-20) mm/hr Sodium (137-145) mmol/L Potassium (3.5-5.1) mmol/L Est GFR (CKD-EPI)NonAf (60.0-200.0) Glucose (74-99) mg/dL Calcium (8.7-10.3) mg/dL Magnesium (1.6-2.3) mg/dL Total Bilirubin (0.30-1.20) mg/dL AST (13-35) U/L C-Reactive Protein 3.9 H (<1.0) mg/dL Total Protein (6.3-8.2) g/dL Albumin (3.5-5.0) g/dL Albumin/Globulin Ratio (1.60-3.17) g/dL H & H 04/26/21 Range/Units 15:01 Hgb 8.9 L (11.4-16.0) gm/dL Hct 29.2 L (34.0-46.0) % Result Diagrams: 04/26/21 15:01 04/27/21 05:02 Assessment and Plan Plan: Pt seen and examined. She is much improved on anti-inflammatories. She still has some swelling and pain that is restricting her ROM but states that she feels much better. This is likely a RA flare. 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 I offered her a wrist brace for pain control but she declined. She has some at home that she can try if she wants to try some immobilization in the next couple of days.
[2021-04-27 10:28] LABS: ALT 11 U/L (8-44); AST 11 U/L (13-35); African American GFR (CKD) 61.4 (60.0-200.0); Albumin 2.9 g/dL (3.8-4.9); Albumin/Globulin Ratio 1.26 (1.60-3.17); Alkaline Phosphatase 116 U/L (41-126); BUN/Creat Ratio 17.45 Ratio (12.00-20.00); Blood Urea Nitrogen 19.2 mg/dL (9.0-27.0); Calcium 8.4 mg/dL (8.7-10.3); Carbon Dioxide 21.8 mmol/L (20.0-27.5); Chloride 104 mmol/L (96-109); Globulin 2.3 g/dL (1.6-3.3); Glucose 103 mg/dL (70-110); Sodium 137 mmol/L (135-145); Total Bilirubin <0.15 mg/dL (0.30-1.20); Total Protein 5.2 g/dL (6.2-8.2)
[2021-04-27] MEDS: HYDROmorphone 1 MG/ML 1 ML SYRINGE IVP PRN (10:34)
[2021-04-27] MEDS ORDERED: TEMAZEPAM 15 MG CAP PO PRN (12:00)
[2021-04-27] MEDS: methylPREDNISolone SOD SUCCI 125 MG/2 ML VIAL IV SCH ×3 (12:01→23:12)
[2021-04-27] MEDS ORDERED: Potassium Replacement Protocol 1 EACH MISC MISCELLANE PRN (12:01)
[2021-04-27] MEDS ORDERED: Magnesium Replacement Protocol 1 EACH MISC MISCELLANE PRN (12:01)
[2021-04-27] MEDS: HEPARIN SODIUM,PORCINE/PF 5,000 UNIT/0.5 ML SYRINGE SQ SCH ×2 (12:08→19:23)
[2021-04-27] MEDS: INSULIN ASPART (NovoLOG) 100 UNIT/ML VIAL SQ SCH ×3 (12:08→19:25)
[2021-04-27 12:47] LABS: C Reactive Protein 3.9 mg/dL (<1.0); Uric Acid 5.9 mg/dL (3.7-7.4)
--- NOTE | 2021-04-27 13:16 | HP ---
HISTORY AND PHYSICAL DATE OF SERVICE: 04/27/2021 CHIEF COMPLAINTS: Weakness as well as left wrist pain. HISTORY OF PRESENT ILLNESS: This 66-year-old woman with a past medical history of COPD, CVA, GERD, hypertension, being followed Dr. Trinidad in the outpatient setting, also had knee surgery. The patient is complaining of severe pain in the left wrist. The patient also was found to be severely hypokalemic, 2.7. Patient was admitted for further evaluation and treatment. There is no history of any fever, rigors or chills. No history of headache, loss of consciousness, seizures. PAST MEDICAL HISTORY: DJD, COPD, CVA, TIA, GERD. MEDICATIONS: Home medications include trazodone, Colace, Ecotrin. Doses and other medications are reviewed. ALLERGIES: CODEINE. FAMILY HISTORY: History of dementia. SOCIAL HISTORY: Previous history of smoking. REVIEW OF SYSTEMS: Fourteen-point review of systems negative except as mentioned earlier. PHYSICAL EXAMINATION: Pulse is 55, blood pressure 95/50, respiration 16. HEENT: Conjunctivae normal. Oral mucosa moist. CARDIOVASCULAR: S1, S2 muffled. RESPIRATION: Breath sounds diminished at the bases. No rhonchi. No crackles. ABDOMEN: Soft, nontender. LEGS: No edema. No swelling. NERVOUS SYSTEM: No focal deficit. SKIN: No ulcer, rash, bleeding. JOINTS: left knee pain and swelling and acute arthritis present. LABS: WBC 5.8, hemoglobin 8.9, sodium 133, potassium 2.7. ASSESSMENT: 1. Acute left wrist arthritis; possibly rheumatoid arthritis, acute exacerbation. 2. Severe hypokalemia. 3. Anemia. 4. History of coronary artery disease. 5. Chronic obstructive pulmonary disease. 6. Hypertension. 7. Hyperlipidemia. 8. History of rheumatoid arthritis. 9. History of coronary artery disease, coronary artery bypass grafting. RECOMMENDATIONS AND DISCUSSION: In this 66-year-old woman who presented with multiple complex medical issues, we will monitor the patient closely. Sedimentation rate, CRP, TARI, empiric IV steroids, pain management. Repeat potassium. Check magnesium and use protocols. Prognosis guarded because of multiple complex medical issues. Further recommendations to follow. Pain management. MMODL / IJN: [id number] /
[2021-04-27 16:45] LABS: Glucose,Whole Blood 166 mg/dL (75-99)
[2021-04-27 18:22] LABS: Rheumatoid Factor, Qnt <10 IU/mL (0-15)
[2021-04-27] MEDS: ATORVASTATIN 80 MG TAB PO SCH (19:23)
[2021-04-27] MEDS: HYDROcodone/APAP 5-325MG 1 EACH TAB PO PRN (19:24)
[2021-04-27 19:25] LABS: Glucose,Whole Blood 210 mg/dL (75-99)
[2021-04-27] MEDS: traZODone HCL 50 MG TAB PO SCH (19:25)
[2021-04-28] MEDS: methylPREDNISolone SOD SUCCI 125 MG/2 ML VIAL IV SCH ×2 (05:15→11:49)
[2021-04-28] MEDS: HYDROcodone/APAP 5-325MG 1 EACH TAB PO PRN (05:17)
[2021-04-28 07:25] LABS: Glucose,Whole Blood 258 mg/dL (75-99)
[2021-04-28] MEDS: INSULIN ASPART (NovoLOG) 100 UNIT/ML VIAL SQ SCH ×2 (07:33→11:49)
[2021-04-28 07:48] VITALS: RESP 18
[2021-04-28 09:05] LABS: Basophils # (A) 0.01 X 10*3/uL (0.00-0.10); Basophils % (A) 0.1 %; Eosinophils # (A) 0 X 10*3/uL (0.04-0.35); Eosinophils % (A) 0 %; HGB 8.6 g/dL (12.0-15.0); Immature Grans, Automated 0.5 %; Lymphocytes # (A) 0.67 X 10*3/uL (0.90-5.00); Lymphocytes % (A) 6.9 %; MCH 24.6 pg (27.0-32.0); MCHC 28.7 g/dL (32.0-37.0); MCV 85.7 fL (80.0-97.0); Mean Platelet Volume 9.3 fL (9.5-12.2); Monocytes # (A) 0.08 X 10*3/uL (0.20-1.00); Monocytes % (A) 0.8 %; NRBC Per 100 WBC 0 /100 WBCS (0.0-0.0); Neutrophils # (A) 8.95 X 10*3/uL (1.80-7.70); Neutrophils % (A) 91.7 %; Platelet Count 306 X 10*3/uL (140-440); RDW 18.6 % (11.5-14.5); WBC 9.76 X 10*3/uL (4.50-10.00)
[2021-04-28 09:25] LABS: Magnesium 1.9 mg/dL (1.5-2.4)
[2021-04-28] MEDS: HYDROXYCHLOROQUINE SULFATE 200 MG TAB PO SCH (09:26)
[2021-04-28] MEDS: METOPROLOL TARTRATE 50 MG TAB PO SCH (09:26)
[2021-04-28 09:27] LABS: ALT 11 U/L (8-44); AST 12 U/L (13-35); African American GFR (CKD) 78.3 (60.0-200.0); Albumin 3.4 g/dL (3.8-4.9); Albumin/Globulin Ratio 1.31 (1.60-3.17); Alkaline Phosphatase 127 U/L (41-126); BUN/Creat Ratio 21.56 Ratio (12.00-20.00); Blood Urea Nitrogen 19.4 mg/dL (9.0-27.0); Calcium 9.1 mg/dL (8.7-10.3); Carbon Dioxide 21.4 mmol/L (20.0-27.5); Chloride 103 mmol/L (96-109); Globulin 2.6 g/dL (1.6-3.3); Glucose 156 mg/dL (70-110); Non-African American GFR(CKD) 67.6 (60.0-200.0); Potassium 4.8 mmol/L (3.5-5.5); Sodium 137 mmol/L (135-145); Total Bilirubin <0.15 mg/dL (0.30-1.20)
[2021-04-28] MEDS: HEPARIN SODIUM,PORCINE/PF 5,000 UNIT/0.5 ML SYRINGE SQ SCH (09:27)
[2021-04-28 11:35] LABS: Glucose,Whole Blood 176 mg/dL (75-99)
[2021-04-28 13:34] VITALS: BP 155/62; PULSE 62; TEMP 98.3
== END 2021-04-28 14:36 | disposition home health service (06) | DRG 547 ==
LOC: EC 13:49 → 5NMEDONC 17:12 → 4SSUR 20:47
PROVIDERS: ADMIT Internal Medicine; ATTEND Internal Medicine
DX: M06.832 Other specified rheumatoid arthritis, left wrist (principal); I25.10 Atherosclerotic heart disease of native coronary artery without angina pectoris; E87.6 Hypokalemia; Z95.1 Presence of aortocoronary bypass graft; Z87.11 Personal history of peptic ulcer disease; Z20.822 Contact with and (suspected) exposure to COVID-19; M19.032 Primary osteoarthritis, left wrist; D64.9 Anemia, unspecified; E78.5 Hyperlipidemia, unspecified; I10 Essential (primary) hypertension; J44.9 Chronic obstructive pulmonary disease, unspecified; M41.9 Scoliosis, unspecified; Z88.5 Allergy status to narcotic agent; G89.29 Other chronic pain; Z86.73 Personal history of transient ischemic attack (TIA), and cerebral infarction without residual deficits; Z79.899 Other long term (current) drug therapy; Z79.82 Long term (current) use of aspirin; Z80.1 Family history of malignant neoplasm of trachea, bronchus and lung; Z82.49 Family history of ischemic heart disease and other diseases of the circulatory system; Z85.41 Personal history of malignant neoplasm of cervix uteri; Z87.891 Personal history of nicotine dependence; Z96.651 Presence of right artificial knee joint
CPT/HCPCS: 36415; 80053; 83605; 83735; 84100; 84132; 84550; 85025; 85652; 86038; 86140; 86431; 87040; 87635; 93005; 96374; 96375; 96376; 99285

== ENCOUNTER 2021-09-27 21:45 | Emergency (ER) | payer MEDICARE, OTHER ==
[2021-09-27 21:51] VITALS: BP 203/68; PULSE 74; RESP 18; TEMP 98.1
[2021-09-27] MEDS ORDERED: valACYclovir HCL 1,000 MG TABLET PO ONE (22:30)
[2021-09-27] MEDS ORDERED: HYDROcodone/APAP 7.5-325MG 1 EACH TAB PO ONE (22:31)
--- NOTE | 2021-09-27 23:11 | ED ---
Skin/Abscess/FB HPI - General Chief complaint: Skin/Abscess/Foreign Body Stated complaint: Rash-poss shingles Time Seen by Provider: 09/27/21 22:15 Source: patient, RN notes reviewed, old records reviewed Mode of arrival: wheelchair Limitations: no limitations - History of Present Illness Initial comments: This is a 66-year-old female DF for evaluation of severe facial pain right-sided eye pain right-sided facial pain. Patient has no fevers no other complaints. No travel history no sick contacts no other complaints. No trauma. No vision changes no drainage from the eye MD complaint: rash -: hour(s) Tetanus Up to Date: yes Location: face Severity: moderate Severity scale (1-10): 6 Quality: sharp Consistency: constant Improves with: none, cold therapy Worsens with: none Context: none Associated symptoms: denies other symptoms Treatments Prior to Arrival: none - Related Data Home Medications Medication Instructions Recorded Confirmed Isosorbide Mononitrate [Imdur] 30 mg PO DAILY 11/22/13 04/26/21 Aspirin EC [Ecotrin] 325 mg PO DAILY 07/02/15 04/26/21 Metoprolol Tartrate [Lopressor] 50 mg PO BID 01/19/17 04/26/21 Omeprazole 20 mg PO DAILY 01/19/17 04/26/21 Diphenox-Atrop 2.5-0.025 mg 2 tab PO QID PRN 01/24/17 04/26/21 [Lomotil] Citalopram Hydrobromide [CeleXA] 40 mg PO DAILY 02/26/19 04/26/21 traZODone HCL 50 mg PO HS 02/26/19 04/26/21 Hydroxychloroquine Sulfate 200 mg PO BID 01/26/21 04/26/21 [Plaquenil] Atorvastatin [Lipitor] 80 mg PO HS 04/26/21 04/26/21 lisinopriL [Zestril] 5 mg PO DAILY 04/26/21 04/26/21 Previous Rx's Medication Instructions Recorded Docusate [Colace] 100 mg PO DAILY #30 capsule 04/14/21 HYDROcodone/APAP 5-325MG [[place] 1 tab PO Q6HR PRN #36 tab 04/14/21 5-325] predniSONE 10 mg PO DIRECTED #50 tab 04/28/21 valACYclovir HCL [Valtrex] 1,000 mg PO TID #30 tablet 09/27/21 Allergies Allergy/AdvReac Type Severity Reaction Status Date / Time codeine AdvReac Nausea & Verified 04/26/21 13:56 Vomiting Review of Systems ROS Statement: Those systems with pertinent positive or pertinent negative responses have been documented in the HPI. ROS Other: All systems not noted in ROS Statement are negative. Past Medical History Past Medical History: Coronary Artery Disease (CAD), Cancer, Chest Pain / Angina, COPD, CVA/TIA, GERD/Reflux, Hyperlipidemia, Hypertension, Osteoarthritis (OA), Rheumatoid Arthritis (RA), Skin Disorder, Vascular Disorder Additional Past Medical History / Comment(s): chronic back pain., scoliosis., heart murmur, SOB w/activity, hx of gastric ulcer, cervical cancer, eczema, TIA ., frequent diarrhea., hepatitis C with tx. History of Any Multi-Drug Resistant Organisms: None Reported Past Surgical History: Section, Cholecystectomy, Coronary Bypass/CABG, Heart Catheterization, Heart Catheterization With Stent, Orthopedic Surgery, Tubal Ligation Additional Past Surgical History / Comment(s): triple CABG 2008, ORIF right leg, ., heart cath with stent 2013(Mph)., heart cath no stent (2019). Past Anesthesia/Blood Transfusion Reactions: No Reported Reaction Date of Last Stent Placement:: 2013 Past Psychological History: Anxiety, Depression Smoking Status: Former smoker Past Alcohol Use History: Rare Additional Past Alcohol Use History / Comment(s): started smoking age 18, past hx of 1ppd Past Drug Use History: None Reported - Past Family History Father Family Medical History: Cancer, Dementia Additional Family Medical History / Comment(s): AT AGE 84-LUNG CANCER. Mother Family Medical History: Coronary Artery Disease (CAD) Additional Family Medical History / Comment(s): AT AGE 73. Brother(s) Family Medical History: Cancer General Exam Limitations: no limitations General appearance: alert, in no apparent distress Head exam: Present: atraumatic, normocephalic, normal inspection Eye exam: Present: normal appearance, PERRL, EOMI. Absent: scleral icterus, conjunctival injection, periorbital swelling Pupils: Present: other (Zoster surrounding right eye) ENT exam: Present: normal exam, mucous membranes moist Neck exam: Present: normal inspection. Absent: tenderness, meningismus, lymphadenopathy Respiratory exam: Present: normal lung sounds bilaterally. Absent: respiratory distress, wheezes, rales, rhonchi, stridor Cardiovascular Exam: Present: regular rate, normal rhythm, normal heart sounds. Absent: systolic murmur, diastolic murmur, rubs, gallop, clicks GI/Abdominal exam: Present: soft, normal bowel sounds. Absent: distended, tenderness, guarding, rebound, rigid Extremities exam: Present: normal inspection, full ROM, normal capillary refill. Absent: tenderness, pedal edema, joint swelling, calf tenderness Back exam: Present: normal inspection Neurological exam: Present: alert, oriented X3, CN II-XII intact Psychiatric exam: Present: normal affect, normal mood Skin exam: Present: warm, dry, intact, normal color. Absent: rash Course Vital Signs 09/27/21 21:47 Temperature 98.1 F Pulse Rate 74 Respiratory 18 Rate Blood Pressure 203/68 O2 Sat by Pulse 98 Oximetry - Reevaluation(s) Reevaluation #1: 09/28/21 Medical record is reviewed Reevaluation #2: 09/28/21 Patient symptoms are improved here in the ER Reevaluation #3: 09/28/21 Patient informed of results and questions answered Medical Decision Making - Medical Decision Making 66 female to the emergency department for evaluation patient does have herpes zoster, consult the right eye. Patient given follow-up with ophthalmology, patient understands need for follow-up and given treatment here in the ER Disposition Clinical Impression: Herpes zoster ophthalmicus of right eye Disposition: HOME SELF-CARE Condition: Good Instructions (If sedation given, give patient instructions): Shingles (ED) Prescriptions: valACYclovir HCL [Valtrex] 1,000 mg PO TID #30 tablet Is patient prescribed a controlled substance at d/c from ED?: No Referrals: Lewis Patel MD [STAFF PHYSICIAN] - 1-2 days Time of Disposition: 00:00
[2021-09-27] MEDS ORDERED: prednisoLONE ACETATE 1% OPHTH DROPS 5 ML BTL RIGHT EYE ONE (23:30)
== END 2021-09-27 23:32 | disposition home or self-care (01) ==
LOC: EC 21:45
DX: B02.30 Zoster ocular disease, unspecified (principal); I25.10 Atherosclerotic heart disease of native coronary artery without angina pectoris; J44.9 Chronic obstructive pulmonary disease, unspecified; K21.9 Gastro-esophageal reflux disease without esophagitis; E78.5 Hyperlipidemia, unspecified; I10 Essential (primary) hypertension; M19.90 Unspecified osteoarthritis, unspecified site; Z87.891 Personal history of nicotine dependence; Z88.5 Allergy status to narcotic agent; Z79.82 Long term (current) use of aspirin; Z79.899 Other long term (current) drug therapy; Z86.73 Personal history of transient ischemic attack (TIA), and cerebral infarction without residual deficits
CPT/HCPCS: 99283

== ENCOUNTER 2021-12-20 17:36 | Emergency (ER) | payer MEDICARE, OTHER ==
[2021-12-20 17:48] VITALS: TEMP 97.7
--- NOTE | 2021-12-20 18:23 | ED ---
Skin/Abscess/FB HPI - General Chief complaint: Skin/Abscess/Foreign Body Stated complaint: Hives Time Seen by Provider: 12/20/21 18:10 Source: patient, RN notes reviewed, old records reviewed Mode of arrival: ambulatory Limitations: no limitations - History of Present Illness Initial comments: 66-year-old female history of rheumatoid arthritis among other issues who states she started developing and it she rash in both arms and lower extremities today she believes it may be due to a new medication For her rheumatoid arthritis. No trouble swallowing and difficulty breathing other current complaints modifying factors MD complaint: rash - Related Data Home Medications Medication Instructions Recorded Confirmed Isosorbide Mononitrate [Imdur] 30 mg PO DAILY 11/22/13 04/26/21 Aspirin EC [Ecotrin] 325 mg PO DAILY 07/02/15 04/26/21 Metoprolol Tartrate [Lopressor] 50 mg PO BID 01/19/17 04/26/21 Omeprazole 20 mg PO DAILY 01/19/17 04/26/21 Diphenox-Atrop 2.5-0.025 mg 2 tab PO QID PRN 01/24/17 04/26/21 [Lomotil] Citalopram Hydrobromide [CeleXA] 40 mg PO DAILY 02/26/19 04/26/21 traZODone HCL 50 mg PO HS 02/26/19 04/26/21 Hydroxychloroquine Sulfate 200 mg PO BID 01/26/21 04/26/21 [Plaquenil] Atorvastatin [Lipitor] 80 mg PO HS 04/26/21 04/26/21 lisinopriL [Zestril] 5 mg PO DAILY 04/26/21 04/26/21 Previous Rx's Medication Instructions Recorded Docusate [Colace] 100 mg PO DAILY #30 capsule 04/14/21 HYDROcodone/APAP 5-325MG [[place] 1 tab PO Q6HR PRN #36 tab 04/14/21 5-325] predniSONE 10 mg PO DIRECTED #50 tab 04/28/21 valACYclovir HCL [Valtrex] 1,000 mg PO TID #30 tablet 09/27/21 predniSONE [Deltasone] 20 mg PO BID #10 tab 12/20/21 Allergies Allergy/AdvReac Type Severity Reaction Status Date / Time codeine AdvReac Nausea & Verified 12/20/21 17:48 Vomiting Review of Systems ROS Statement: Those systems with pertinent positive or pertinent negative responses have been documented in the HPI. ROS Other: All systems not noted in ROS Statement are negative. Past Medical History Past Medical History: Coronary Artery Disease (CAD), Cancer, Chest Pain / [place], COPD, CVA/TIA, GERD/Reflux, Hyperlipidemia, Hypertension, Osteoarthritis (OA), Rheumatoid Arthritis (RA), Skin Disorder, Vascular Disorder Additional Past Medical History / Comment(s): chronic back pain., scoliosis., heart murmur, SOB w/activity, hx of gastric ulcer, cervical cancer, eczema, TIA ., frequent diarrhea., hepatitis C with tx. History of Any Multi-Drug Resistant Organisms: None Reported Past Surgical History: Section, Cholecystectomy, Coronary Bypass/CABG, Heart Catheterization, Heart Catheterization With Stent, Orthopedic Surgery, Tubal Ligation Additional Past Surgical History / Comment(s): triple CABG 2008, ORIF right leg, ., heart cath with stent 2013(Mph)., heart cath no stent (2019). Past Anesthesia/Blood Transfusion Reactions: No Reported Reaction Date of Last Stent Placement:: 2013 Past Psychological History: Anxiety, Depression Smoking Status: Current every day smoker, Former smoker Past Alcohol Use History: Rare Past Drug Use History: None Reported - Past Family History Father Family Medical History: Cancer, Dementia Additional Family Medical History / Comment(s): AT AGE 84-LUNG CANCER. Mother Family Medical History: Coronary Artery Disease (CAD) Additional Family Medical History / Comment(s): AT AGE 73. Brother(s) Family Medical History: Cancer General Exam - General Exam Comments Initial Comments: This a well-developed thin appearing female who is awake alert oriented 4 she is actively scratching both upper extremities Limitations: no limitations General appearance: alert, anxious Head exam: Present: atraumatic, normocephalic, normal inspection Eye exam: Present: normal appearance, PERRL, EOMI. Absent: scleral icterus, conjunctival injection, periorbital swelling ENT exam: Present: normal exam, mucous membranes moist Neck exam: Present: full ROM Respiratory exam: Present: normal lung sounds bilaterally. Absent: respiratory distress, wheezes, rales, rhonchi, stridor Cardiovascular Exam: Present: regular rate, normal rhythm, normal heart sounds. Absent: systolic murmur, diastolic murmur, rubs, gallop, clicks Extremities exam: Present: full ROM, normal capillary refill, other (Erythema with some excoriation seen in both upper extremities some erythema noted no evidence of any infectious process at this time.). Absent: tenderness Neurological exam: Present: alert, oriented X3, CN II-XII intact Psychiatric exam: Present: anxious Skin exam: Present: warm, dry, erythema (3 upper extremities and lower extremities). Absent: intact Course Vital Signs 12/20/21 12/20/21 17:46 18:01 Temperature 97.7 F Pulse Rate 92 Respiratory 16 Rate Blood Pressure 146/69 O2 Sat by Pulse 99 Oximetry - Reevaluation(s) Reevaluation #1: 12/20/21 18:23 Patient was cautioned about scratching aggressively she was given cold packs placed on HEENT exam and tip. Medical Decision Making - Medical Decision Making Patient is feeling improved and will be discharged on appropriate medication [id number] Benadryl and Pepcid as well as a prescription for prednisone Disposition Clinical Impression: Allergic reaction caused by a drug Disposition: HOME SELF-CARE Condition: Good Instructions (If sedation given, give patient instructions): Cold Compress or Soak (ED), General Allergic Reaction (ED) Additional Instructions: [id number] Benadryl and Pepcid as discussed. Prescriptions: predniSONE [Deltasone] 20 mg PO BID #10 tab Is patient prescribed a controlled substance at d/c from ED?: No Referrals: Olivier Trinidad DO [Primary Care Provider] - 1-2 days Decision Date: 12/20/21 Decision Time: 20:31
[2021-12-20] MEDS ORDERED: predniSONE 50 MG TAB PO STA (19:25)
[2021-12-20] MEDS ORDERED: diphenhydrAMINE 25 MG CAP PO STA (19:26)
[2021-12-20] MEDS ORDERED: FAMOTIDINE 20 MG TAB PO STA (19:26)
[2021-12-20 21:05] VITALS: BP 178/84; PULSE 81; RESP 18
== END 2021-12-20 20:40 | disposition home or self-care (01) ==
LOC: EC 17:36
DX: L27.0 Generalized skin eruption due to drugs and medicaments taken internally (principal); T50.995A Adverse effect of other drugs, medicaments and biological substances, initial encounter; F17.200 Nicotine dependence, unspecified, uncomplicated; I25.10 Atherosclerotic heart disease of native coronary artery without angina pectoris; I10 Essential (primary) hypertension; J44.9 Chronic obstructive pulmonary disease, unspecified; K21.9 Gastro-esophageal reflux disease without esophagitis; E78.5 Hyperlipidemia, unspecified; M06.9 Rheumatoid arthritis, unspecified; Z86.73 Personal history of transient ischemic attack (TIA), and cerebral infarction without residual deficits; Z88.5 Allergy status to narcotic agent; Z79.82 Long term (current) use of aspirin; Z79.899 Other long term (current) drug therapy; Y92.89 Other specified places as the place of occurrence of the external cause
CPT/HCPCS: 99282; J7512

== ENCOUNTER 2022-03-03 07:15 | Day surgery (SDC) | payer MEDICARE, OTHER ==
[2022-03-02 11:46] VITALS: BMI 25.8
[~2022-03-03 07:15] MED LIST changes: -ACETAMINOPHEN TAB 500 MG TAB PO PRN; -DEXAMETHASONE SOD PHOSPHATE 4 MG/ML 1 ML VIAL IV ONE; -HYDROmorphone 1 MG/ML 1 ML SYRINGE IVP PRN; -LIDOCAINE 1% (10MG/ML) FOR IV START INTRADERMA PRN; -MELOXICAM 7.5 MG TAB PO PRN; +MOXIFLOXACIN HCL 0.5% DROPS 3 ML BTL OP PRN; -ONDANSETRON 4 MG/2 ML VIAL IVP PRN; +TETRACAINE 0.5% OPHTH (PF) DROPS 4 ML BTL OP PRN; +TIMOLOL 0.5% OPHTH DROPS 5 ML BTL OP PRN; -TRANEXAMIC ACID 1,000 MG in SODIUM CHLORIDE 0.9% 100 ML IVPB PRN
[2022-03-03 07:40] VITALS: RESP 20; TEMP 97.6
[2022-03-03] MEDS: CYCLOPENTOLATE 1% OPHTH SOLN 2 ML BTL OP PRN ×3 (07:40→07:52)
[2022-03-03] MEDS: PHENYLEPHRINE 2.5% OPHTH DRP 2ML OP PRN ×3 (07:43→07:55)
[2022-03-03 07:53] LABS: Glucose,Whole Blood 82 mg/dL (70-110)
[2022-03-03] MEDS ORDERED: LACTATED RINGERS 1,000 ML IV ONE (07:56)
[2022-03-03] MEDS ORDERED: fentaNYL (PF) 50 MCG/ML 2 ML AMP ONE (08:18)
[2022-03-03] MEDS ORDERED: MIDAZOLAM 2 MG/2 ML VIAL ONE (08:18)
[2022-03-03] MEDS ORDERED: HYALURONATE SODIUM INTRAOCULAR 1 EACH SYRINGE (12MG/ML) INTRAOCULA ONE (08:22)
[2022-03-03] MEDS ORDERED: BALANCED SALT IRRIG SOLN COMB2 15 ML IRRIG.SOLN INTRAOCULA ONE (08:23)
[2022-03-03] MEDS ORDERED: EPINEPHrine (PF) 0.3 ML in BALANCED SALT IRRIG SOLN COMB2 500 ML IRRIGATION ONE (08:30)
[2022-03-03] MEDS ORDERED: LIDOCAINE 1% (PF) 10MG/ML VIAL SQ ONE (08:30)
--- NOTE | 2022-03-03 08:46 | P.OP ---
Date of Procedure: 03/03/22 Preoperative Diagnosis: NS & CS Postoperative Diagnosis: same Procedure(s) Performed: PIOL, OD Implants: [id number] 21.00 Anesthesia: MAC Surgeon: Lewis Patel Pathology: none sent Condition: stable Disposition: same day Indications for Procedure: blurry vision Operative Findings: no complications
[2022-03-03 09:05] VITALS: BP 105/53; PULSE 66
--- NOTE | 2022-03-04 | OP ---
OPERATIVE REPORT PREOPERATIVE DIAGNOSES: Nuclear sclerosis, cortical sclerosis. POSTOPERATIVE DIAGNOSIS: Nuclear sclerosis. OPERATION: Phacoemulsification of cataract and interocular lens implant of the right eye. ESTIMATED BLOOD LOSS: Zero. SPECIMEN TAKEN: None. NARRATIVE: After obtaining the appropriate consent, the patient was brought to the operating room where the patient was placed under cardiac monitoring and prepped and draped in the usual sterile manner. At the 11 o'clock position, a 15-degree super sharp blade was used to create a paracentesis followed by instillation of 1% Xylocaine MPF 50:50 mix with BSS into the anterior chamber. This was followed by Amvisc viscoelastic to stabilize the anterior chamber. At the 9 o'clock position a self-sealing corneal flap incision was created using 2.8 mm jean-pierre keratome. A cystotome was used to initiate a continuous tear capsulorrhexis which was completed with the Utrata forceps. A Binkhorst cannula was used to hydrodissect the lens nucleus followed by hydrodelineation. Phacoemulsification of the lens was performed utilizing phacochop in 8.07 seconds at 16% power. The remaining cortical material was removed using the irrigation aspiration mode followed by additional 1% Xylocaine MPF into the anterior chamber followed by viscoelastic to stabilize the capsular bag. A B[employer]ch [employer] Lomb MX60E 21.0 diopters posterior chamber lens was placed into the capsular bag without difficulty. The remaining viscoelastic material was removed from the anterior chamber with the irrigation/aspiration. Balanced salt solution was used to normalize the intraocular pressure. The incision was checked for watertight integrity. The patient then received 2 drops of 0.5% timolol followed by 2 drops Vigamox, was lightly patched and shielded in the usual manner. There were no complications from the procedure. The patient tolerated the procedure well and was returned to recovery in good condition. MMODL / IJN: [id number] /
== END 2022-03-03 09:22 | disposition home or self-care (01) ==
LOC: OR 07:15
PROVIDERS: ATTEND Ophthalmology
DX: H25.12 Age-related nuclear cataract, left eye (principal); I11.9 Hypertensive heart disease without heart failure; I25.10 Atherosclerotic heart disease of native coronary artery without angina pectoris; J44.9 Chronic obstructive pulmonary disease, unspecified; Z88.5 Allergy status to narcotic agent; F17.210 Nicotine dependence, cigarettes, uncomplicated; E78.00 Pure hypercholesterolemia, unspecified; M06.9 Rheumatoid arthritis, unspecified; M51.9 Unspecified thoracic, thoracolumbar and lumbosacral intervertebral disc disorder; F41.9 Anxiety disorder, unspecified; K21.9 Gastro-esophageal reflux disease without esophagitis; Z95.5 Presence of coronary angioplasty implant and graft; Z95.1 Presence of aortocoronary bypass graft; Z90.49 Acquired absence of other specified parts of digestive tract; Z96.659 Presence of unspecified artificial knee joint; Z98.890 Other specified postprocedural states; Z82.49 Family history of ischemic heart disease and other diseases of the circulatory system; Z82.61 Family history of arthritis; Z83.518 Family history of other specified eye disorder; F10.20 Alcohol dependence, uncomplicated; Z79.52 Long term (current) use of systemic steroids; Z79.1 Long term (current) use of non-steroidal anti-inflammatories (NSAID); Z79.899 Other long term (current) drug therapy; Z79.01 Long term (current) use of anticoagulants; Z79.891 Long term (current) use of opiate analgesic; Z79.02 Long term (current) use of antithrombotics/antiplatelets
CPT/HCPCS: 66982; C1780; J2250; J0171; J3010; J2001

== ENCOUNTER 2022-03-15 11:20 | Day surgery (SDC) | payer MEDICARE, OTHER ==
[2022-03-12 08:55] VITALS: BMI 26.0
--- NOTE | 2022-03-15 08:20 | HP ---
HISTORY AND PHYSICAL DATE OF SURGERY: 03/15/2022. HISTORY OF PRESENT ILLNESS: Brynn Sr is a 67-year-old patient seen with symptomatic left knee osteoarthritis. We discussed options for treatment. She elected to proceed with left total knee arthroplasty. Consent regarding the procedure was obtained. She received preoperative cardiac clearance by Dr. Simental. PAST MEDICAL HISTORY: Hypertension, hyperlipidemia, coronary artery disease. PAST SURGICAL HISTORY: Tubal ligation, section, cholecystectomy, coronary artery bypass surgery, cardiac stent placement. DAILY MEDICATIONS: 1. Aspirin. 2. Lipitor. 3. Lisinopril. 4. Metoprolol. 5. Prilosec. 6. Celexa. 7. Hydroxychloroquine. 8. Isosorbide. 9. Hydrocodone. ALLERGIES: None. SOCIAL HISTORY: She denies current tobacco use. PHYSICAL EVALUATION OF THE LEFT KNEE: Her range of motion is negative 4 to 90 degrees. Mild effusion. Tenderness, medial joint line. Crepitus, medial patellofemoral compartments with range of motion. Some pain with patellofemoral compression. Ligaments are stable. Hip rotation is without pain. Her distal neurovascular exam is intact. RADIOGRAPHS: Left knee radiographs reveal severe osteoarthritic changes. IMPRESSION: 1. Left knee osteoarthritis. 2. Hypertension. 3. Hyperlipidemia. 4. Coronary artery disease. PLAN: Left total knee arthroplasty. MMODL / IJN: [id number] /
[~2022-03-15 11:20] MED LIST changes: +ACETAMINOPHEN TAB 500 MG TAB PO PRN; +DEXAMETHASONE SOD PHOSPHATE 4 MG/ML 1 ML VIAL IV ONE; -LACTATED RINGERS 1,000 ML IV SCH; +MELOXICAM 7.5 MG TAB PO PRN; +MIDAZOLAM 2 MG/2 ML VIAL IV PRN; -MOXIFLOXACIN HCL 0.5% DROPS 3 ML BTL OP PRN; +ONDANSETRON 4 MG/2 ML VIAL IVP ONE; -TETRACAINE 0.5% OPHTH (PF) DROPS 4 ML BTL OP PRN; -TIMOLOL 0.5% OPHTH DROPS 5 ML BTL OP PRN; +TRANEXAMIC ACID IN NACL,ISO-OS 1,000 MG in SALINE 1 100ML.BAG IVPB PRN
[2022-03-15] MEDS: LACTATED RINGERS 1,000 ML IV SCH (12:23)
[2022-03-15] MEDS ORDERED: fentaNYL (PF) 50 MCG/1 ML VIAL IVP ONE (12:29)
[2022-03-15] MEDS ORDERED: MIDAZOLAM 2 MG/2 ML VIAL IVP ONE (12:29)
[2022-03-15] MEDS ORDERED: NEOSTIGMINE 1 MG/ML 10 ML VIAL ONE (12:45)
[2022-03-15] MEDS ORDERED: SODIUM CHLORIDE 0.9% (PF) 10 ML VIAL ONE (12:45)
[2022-03-15] MEDS ORDERED: fentaNYL (PF) 50 MCG/ML 2 ML AMP ONE (12:45)
[2022-03-15] MEDS ORDERED: ROPIVACAINE 5 MG/ML 30 ML VIAL ONE (12:45)
[2022-03-15] MEDS ORDERED: PROPOFOL 10 MG/ML 20 ML VIAL IV ONE (12:45)
[2022-03-15] MEDS ORDERED: GLYCOPYRROLATE 0.2 MG/ML 2 ML VIAL ONE (12:45)
[2022-03-15] MEDS ORDERED: TRANEXAMIC ACID IN NACL,ISO-OS 1,000 MG/100 ML BAG ONE (12:45)
[2022-03-15] MEDS ORDERED: PHENYLEPHRINE-0.9% NACL SYG 1,000 MCG/10 ML SYRINGE ONE (12:45)
[2022-03-15] MEDS ORDERED: MIDAZOLAM 2 MG/2 ML VIAL ONE (12:45)
[2022-03-15] MEDS ORDERED: ROCURONIUM 10 MG/ML (5 ML VIAL) IV ONE (12:45)
[2022-03-15] MEDS ORDERED: ceFAZolin 1,000 MG in SODIUM CHLORIDE 0.9% 1,000 ML IRRIGATION ONE (13:07)
--- NOTE | 2022-03-15 13:20 | P.ANPRN ---
Procedure Note - Anesthesia - Nerve Block Performed Left Adductor Canal Infusion Time Out Performed: Yes (1228) Date of Procedure: 03/15/22 Procedure Start Time: 12:29 Procedure Stop Time: 12:35 Location of Patient: PreOp Indication: Acute Post-Operative Pain, Requested by Surgeon Specifically requested for management of pain by DrYenny: Ar Edge Sedation Type: Sedate with meaningful contact maintained Preparation: Sterile Prep Position: Supine Catheter Depth at Skin (cm): 7 Catheter: Indwelling Needle Types: Pajunk Needle Gauge: 18 Ultrasound used to visualize needle placement: Yes Ultrasound used to observe medication spread: Yes Injectate: 0.5% Ropivacaine (see comment for volume) (15cc + 5cc nacl pf) Blood Aspirated: No Pain Paresthesia on Injection Noted: No Resistance on Injection: Normal Image Stored and Saved: Yes Events: Uneventful and Well Tolerated
--- NOTE | 2022-03-15 13:21 | P.ANPRN ---
Procedure Note - Anesthesia - Nerve Block Performed Left iPack Single Time Out Performed: Yes (1228) Date of Procedure: 03/15/22 Procedure Start Time: 12:36 Procedure Stop Time: 12:40 Location of Patient: PreOp Indication: Acute Post-Operative Pain, Requested by Surgeon Specifically requested for management of pain by DrYenny: Ar Edge Sedation Type: Sedate with meaningful contact maintained Preparation: Sterile Prep Position: Supine Catheter: None Needle Types: Pajunk Needle Gauge: 21 Ultrasound used to visualize needle placement: Yes Ultrasound used to observe medication spread: Yes Injectate: 0.5% Ropivacaine (see comment for volume) (15cc + 5cc nacl pf) Blood Aspirated: No Pain Paresthesia on Injection Noted: No Resistance on Injection: Normal Image Stored and Saved: Yes Events: Uneventful and Well Tolerated
[2022-03-15] MEDS ORDERED: HYDROmorphone 0.5 MG/0.5 ML SYRINGE IVP PRN ×2 (14:19)
[2022-03-15] MEDS ORDERED: HYDROcodone/APAP 5-325MG 1 EACH TAB PO PRN (14:19)
[2022-03-15] MEDS ORDERED: HYDROmorphone 1 MG/ML 1 ML SYRINGE IVP PRN (14:19)
[2022-03-15] MEDS ORDERED: NALOXONE 0.4 MG/ML 1 ML VIAL IV PRN (14:19)
[2022-03-15] MEDS ORDERED: ONDANSETRON 4 MG/2 ML VIAL IVP PRN (14:19)
--- NOTE | 2022-03-15 14:19 | P.OP ---
Date of Procedure: 03/15/22 Preoperative Diagnosis: Left knee osteoarthritis Postoperative Diagnosis: Left knee osteoarthritis Procedure(s) Performed: Left total knee arthroplasty Implants: 1. Depuy attune size 3 left cruciate retaining cemented femur 2. Depuy attune size 3 fixed bearing cemented tibial baseplate 3. Depuy attune size 3 fixed bearing cruciate retaining 8 mm polyethylene tibial insert 4. Depuy attune 35 mm all polyethylene cemented patella Anesthesia: GETA, regional (Adductor canal catheter, Ipack block) Surgeon: Ar Edge Sales [employer] Service Engineer #1: Killian Craig Estimated Blood Loss (ml): 40 Pathology: other (Bone) Condition: stable Disposition: PACU Indications for Procedure: 67-year-old patient seen with symptomatic left knee osteoarthritis. After having treatment options discussed, she elected to proceed with total knee ar throplasty. Operative Findings: See description of procedure Description of Procedure: Patient was taken to the operative suite after having an adductor canal catheter placed by the department of anesthesia. Patient underwent a general anesthetic by the department of anesthesia. Patient was given preoperative IV intake antibiotics and TXA. A well-padded tourniquet was placed about the left lower extremity. The lower extremity was then prepped and draped in the normal sterile orthopedic fashion. The extremity was elevated, a tourniquet was insufflated to 300. A standard anterior incision was made sharply through skin. Dissection was taken down through the subcutaneous soft tissues down to the extensor mechanism. A medial arthrotomy was performed, patella was everted and knee was flexed. There was advanced osteoarthritis noted. I introduced my distal intramedullary femoral drill. I then introduced the distal femoral cutting jig. Bam FELDER secured the cutting jig with 2 pins. I held retractors in position while Bam FELDER performed the distal femoral resection through the guide area we now removed her distal femoral cutting guide. We now placed our 4-in-1 femoral cutting block and positioned and it was secured with 2 pins by Bam FELDER while I held the block in position. The distal femoral finishing was now completed. A proximal tibial cutting guide was positioned. I held the guide in the appropriate position with both hands well Bam FELDER inserted stabilizing pins into the guide. Proximal tibial cut was made. We now placed a trial femoral component into position, along with an appropriate size tibial tray and insert. We now took the knee through range of motion and had full extension good flexion and good overall soft tissue balance noted. The patella was everted and stabilized with 2 towel clips held by Bam FELDER while I performed a flush with patellar quad tendon utilizing a fresh sawblade. We templated the patella, appropriate drill holes were made. An appropriate trial patella was positioned, knee was taken through full range of motion with the patella tracking very nicely. The trial patella was removed. Drill holes were made through the femoral component. All trial components were removed after marking off the appropriate rotation of the tibia. Retractors were now positioned along the proximal tibia. An appropriate keel punch was made with the appropriate size tibial guide by myself on Bam FELDER assisted by holding retractors. At this point appropriate size implants were chosen and opened. The joint was irrigated copiously with pulse lavage mechanical irrigation. The wound was irrigated with pulse lavage mechanical irrigation. We mixed antibiotic methylmethacrylate. We placed the knee into flexion. We placed multiple retractors assisted by Bam FELDER to expose the proximal tibia. Once the methyl methacrylate was ready, the tibial component was cemented into place removing any excess methylmethacrylate form by both myself and Bam FELDER. The femoral component was cemented into place removing the removing any excess methylmethacrylate performed by both myself and Bam FELDER. We then inserted the appropriate size polyethylene tibial insert. We made sure that it was locked into position. We took the knee into full extension, and then back in a flexion making sure we had removed any excess methylmethacrylate. The patellar component was then cemented down and secured with clamp. Excess methylmethacrylate removed. We kept the knee in full extension, patellar clamp in position until methylmethacrylate had hardened. Once it had hardened the patellar clamp was removed. The knee was taken through full range of motion. The patella tracked nicely. There was good soft tissue balancing. The tourniquet was now released. Additional hemostasis was achieved via electrocautery. A second gram of TXA was given. The wound again was irrigated with pulse lavage mechanical irrigation. The superficial soft tissues were infiltrated local analgesic. The extensor mechanism was repaired with Ethibond suture. We checked the repair with range of motion and it was stable. The subcutaneous soft tissues were repaired with Vicryl in layers. The skin was approximated with pernio/Dermabond. Sterile dressings were applied followed by loose web roll and Alejandro bandage. The patient was transferred to a bed, and taken to recovery in stable and satisfactory condition. Bam FELDER assisted with this complex procedure.
[2022-03-15] MEDS ORDERED: ROPIVACAINE 0.2%-NS ON-Q PUMP 2 MG/ML EACH MISCELLANE ONE ×2 (14:43→15:13)
--- NOTE | 2022-03-15 14:57 | XR ---
EXAMINATION TYPE: XR knee limited LT DATE OF EXAM: 03/15/2022 2:53 PM INDICATION: Patient age:Female; 67 years old; Reason for study: Evaluation for Postop abnormality and alignment; COMPARISON: None. TECHNIQUE: The Left knee(s) was examined in Frontal, lateral projections. FINDINGS: Status post total knee arthroplasty changes with hardware in appropriate alignment and in tact. No evidence of fracture. Subcutaneous lucencies and lucencies within the joint consistent with surgical changes. IMPRESSION: Status post total knee arthroplasty changes with hardware intact and appropriate alignment. No fractu res identified.
[2022-03-15] MEDS: fentaNYL (PF) 50 MCG/ML 2 ML AMP IV PRN ×2 (15:07→16:08)
[2022-03-15] MEDS: LACTATED RINGERS 1,000 ML IV ONE ×2 (15:15→17:28)
[2022-03-15] MEDS: HYDROcodone/APAP 7.5-325MG 1 EACH TAB PO PRN (22:50)
[2022-03-16] MEDS ORDERED: traZODone HCL 50 MG TAB PO SCH (00:45)
[2022-03-16] MEDS: METOPROLOL TARTRATE 50 MG TAB PO SCH ×2 (00:57→08:28)
--- NOTE | 2022-03-16 03:34 | P.CONS ---
History of Present Illness - Reason for Consult Consult date: 03/15/22 post op medical management - Chief Complaint elective left knee replacement - History of Present Illness 67 year old female with hypertension , RA patient had let total knee arthroplasty , tolerated well, no observed immediate post op complications. denies any chest pain SOB, fever, abd pain . she tolerated PO intake . patient has history of RA , currently on steroids and plaquinel. Review of Systems Pertinent positives as noted in HPI. All other systems were reviewed and are negative Past Medical History Past Medical History: Coronary Artery Disease (CAD), Cancer, Chest Pain / Angina, COPD, CVA/TIA, Eye Disorder, GERD/Reflux, Hyperlipidemia, Hypertension, Liver Disease, Osteoarthritis (OA), Rheumatoid Arthritis (RA), Skin Disorder, Vascular Disorder Additional Past Medical History / Comment(s): chronic back pain., scoliosis., heart murmur, SOB w/activity, hx of gastric ulcer, cervical cancer, eczema, TIA ., frequent diarrhea., hepatitis C with tx. CATARACTS, DJD, SOB WITH WALKING History of Any Multi-Drug Resistant Organisms: None Reported Past Surgical History: Section, Cholecystectomy, Coronary Bypass/CABG, Heart Catheterization, Heart Catheterization With Stent, Joint Replacement, Orthopedic Surgery, Tubal Ligation Additional Past Surgical History / Comment(s): triple CABG 2008, ORIF right leg( PT UNSURE ABOUT THIS PROCEDURE), RT TKA, ., heart cath with stent 2013(Mph)., heart cath no stent (2019). RT CATARACT 03/03/22 Past Anesthesia/Blood Transfusion Reactions: No Reported Reaction Date of Last Stent Placement:: 2013 Smoking Status: Former smoker - Past Family History Father Family Medical History: Cancer, Dementia Additional Family Medical History / Comment(s): AT AGE 84-LUNG CANCER. Mother Family Medical History: Coronary Artery Disease (CAD) Additional Family Medical History / Comment(s): AT AGE 73. Brother(s) Family Medical History: Cancer Medications and Allergies Home Medications Medication Instructions Recorded Confirmed Type Isosorbide Mononitrate [Imdur] 30 mg PO QAM 11/22/13 03/12/22 History Aspirin EC [Ecotrin] 325 mg PO DAILY 07/02/15 03/12/22 History Metoprolol Tartrate [Lopressor] 50 mg PO BID 01/19/17 03/12/22 History Omeprazole 20 mg PO QAM 01/19/17 03/12/22 History Diphenox-Atrop 2.5-0.025 mg 2 tab PO QID PRN 01/24/17 03/12/22 History [Lomotil] Citalopram Hydrobromide [CeleXA] 40 mg PO QAM 02/26/19 03/12/22 History traZODone HCL 50 mg PO HS 02/26/19 03/12/22 History Hydroxychloroquine Sulfate 200 mg PO BID 01/26/21 03/12/22 History [Plaquenil] Atorvastatin [Lipitor] 80 mg PO HS 04/26/21 03/12/22 History lisinopriL [Zestril] 5 mg PO QAM 04/26/21 03/12/22 History predniSONE [Deltasone] 5 mg PO QAM 03/02/22 03/12/22 History Amitriptyline HCl 50 mg PO DAILY 03/15/22 03/15/22 History Allergies Allergy/AdvReac Type Severity Reaction Status Date / Time codeine AdvReac Nausea & Verified 03/15/22 11:38 Vomiting Physical Exam Vitals: Vital Signs Temp Pulse Pulse Resp BP BP Pulse Ox 03/15/22 19:18 97.7 F 79 18 153/66 94 L 03/15/22 17:05 81 16 164/86 98 03/15/22 16:35 80 16 161/74 98 03/15/22 16:20 80 16 180/86 97 03/15/22 16:05 79 16 175/84 96 03/15/22 15:51 82 16 173/80 93 L 03/15/22 15:36 75 16 174/85 99 03/15/22 15:20 74 16 189/89 99 03/15/22 15:05 73 16 208/102 99 03/15/22 14:49 72 16 211/92 99 03/15/22 14:34 97.2 F L 65 16 148/74 98 03/15/22 12:38 65 18 129/60 97 03/15/22 11:55 98.1 F 76 16 160/75 95 Intake and Output 03/15/22 03/15/22 03/16/22 14:59 22:59 06:59 Intake Total 751 600 Output Total 40 Balance 711 600 Intake: IV 751 600 Output: Estimated Blood Loss 40 Other: Voiding Method Toilet # Voids 0 Weight 59.9 kg 59.9 kg Constitutional: No acute distress, conversant, pleasant Eyes: Anicteric sclerae, moist conjunctiva, Pupils equal round reactive to light ENMT: NC/AT Oropharynx clear, no erythema, or exudates Neck: Supple, no masses, or JVD No carotid bruits No thyromegaly Lungs: Clear to auscultation Clear to percussion Normal respiratory effort, no accessory muscle use Cardiovascular: Heart regular in rate and rhythm, systolic murmurs,no gallops, or rubs No peripheral edema Abdominal: Soft Nontender, no guarding, rebound or rigidity Abdomen moving with respiration Normoactive bowel sounds Skin: Normal temperature, tone, texture, turgor Extremities: No digital cyanosis No clubbing Pedal pulses intact and symmetrical Radial pulses intact and symmetrical No calf tenderness Psychiatric: Alert and oriented to person, place and time Appropriate affect fair judgment Neuro Muscles Strength 5/5 in all 4 extremities with limitation over left lower extremity due to surgery Sensation to light touch grossly present throughout Cranial nerves II-XII grossly intact Lymphatics: no palpable cervical or supraclavicular lymph nodes Assessment and Plan Assessment: left total knee arthroplasty , POD zero pain control and DVT PPX per ortho team rheumatoid arthritis resume prednisone no dose adjustment needed hold plaquinel for 2 weeks to improve wound healing, if RA symptoms flares up, then ok to resume medication chronic condition hypertension CAD resume cardiac meds, imdur , metoprolol, lisinopril , statin check CBC , BMP in am stable from medical standpoint thank you for this consultation
[2022-03-16] MEDS: HYDROcodone/APAP 7.5-325MG 1 EACH TAB PO PRN ×2 (05:24→11:28)
[2022-03-16 07:18] VITALS: BP 113/60; PULSE 73; RESP 17; TEMP 98.7
[2022-03-16] MEDS ORDERED: PANTOPRAZOLE 40 MG TABLET PO SCH (07:30)
[2022-03-16] MEDS: LACTATED RINGERS 1,000 ML IV SCH (07:52)
[2022-03-16] MEDS ORDERED: ISOSORBIDE MONONITRATE ER 30 MG TAB.ER.24H PO SCH (09:00)
[2022-03-16] MEDS ORDERED: CITALOPRAM HYDROBROMIDE 20 MG TAB PO SCH (09:00)
[2022-03-16] MEDS ORDERED: predniSONE 5 MG TAB PO SCH (09:00)
[2022-03-16] MEDS ORDERED: lisinopriL 5 MG TAB PO SCH (09:00)
[2022-03-16] MEDS ORDERED: AMITRIPTYLINE HCL 50 MG TABLET PO SCH (09:00)
--- NOTE | 2022-03-16 09:36 | P.PN ---
Progress Note - Text Patient seen in room at 0652 am. She is post-op day #1 left TKA with perineural catheter infusing for post-operative pain control. Patient states a VAS of 7- 8/10 which decreases with oral analgesics as prescribed. Expects to be discharged to home today. She has been up out of bed with assistance as tolerated. Will follow up as indicated.
--- NOTE | 2022-03-16 12:10 | P.PN ---
Subjective Progress Note Date: 03/16/22 Principal diagnosis: status post left total knee arthroplasty patient was evaluated today at bedside, she is resting in her hospital chair. She is ambulating well with physical therapy. She does notice some increasing discomfort in the anterior aspect of the knee after working with therapy. She denies any chest pain or shortness of breath at this time. Objective - Vital Signs Vital signs: Vital Signs Temp 98.7 F 03/16/22 07:16 Pulse 73 03/16/22 07:16 Resp 17 03/16/22 07:16 BP 113/60 03/16/22 07:16 Pulse Ox 91 L 03/16/22 07:16 FiO2 Intake & Output 03/15/22 03/16/22 03/16/22 18:59 06:59 18:59 Intake Total 1351 Output Total 40 Balance 1311 Weight 59.9 kg Intake: IV 1351 Output: Estimated Blood Loss 40 Other: Voiding Method Toilet # Voids 0 1 - Exam Left lower extremely: Incision is clean, dry, and intact. The . foam dressing is in good position and condition. There is minimal sot tissue swelling and ecchymosis surrounding the medial and lateral aspects of the incision. Calf is soft, no enderness with palpation. Plantar flexion, dorsiflexion, EHL, FHL are intact. Sensory exam to light touch throughout the extremity is intact, dorsal pedis pulses2+. Assessment and Plan Assessment: Postoperative day #1 status post left total knee arthroplasty Plan: Pain control, plan for discharge home on oral medication DVT prophylaxis, patient will resume aspirin 325 mg daily Wound care instructions discussed, this to include use of the pain catheter, showering instructions along with icing and elevating Home physical therapy/nursing after discharge Medical recommendations Discharge planning: Stable for discharge home today Time with Patient: Less than 30
--- NOTE | 2022-03-16 12:13 | P.DS ---
Providers Date of admission: 03/15/2022 Expected date of discharge: 03/16/22 Attending physician: Ar Edge Consults: 03/15/22 18:15 Consult Physician Routine Consulting Provider: Louann Ochoa Consult Reason/Comments: medical management Do you want consulting provider notified?: Yes Primary care physician: [facility] Course: Date of admission: 03/15/2022 Date of discharge: 03/16/2022 Admission diagnosis: Status post left total knee arthroplasty Discharge diagnosis: Same Attending physician: Dr. Edge Surgical procedures: Left total knee arthroplasty Brief history: Patient is a 67-year-old female with a history of progressive primary left knee osteoarthritic. At this point patient has failed conservative treatment measures and has opted to proceed with a elective left total knee arthroplasty. Hospital course: Details of patient's surgery can be found in operative report. Patient tolerated the procedure well and was subsequently transported to orthopedic floor. Patient's orthopeidc and medical care was provided daily. Patient had daily laboratory tests performed for evaluation of overall blood counts. Patient had daily physical therapy to include strengthening range of motion as well as education with walker ambulation. Patient was treated with Lovenox for their postoperative DVT prophylaxis during their inpatient stay. Patient was noted to have a relatively uneventful postoperative course. Patient reported satisfactory pain control with oral pain medications by postoperative day 0. Patient showed satisfactory progress with physical therapy. Patient moved steadily through the program and had no difficulty meeting the goals by postoperative day 1. Given patient's otherwise satisfactory course and having met physical therapy goals, plan is to discharge patient home on postoperative day 1. Discharge condition/disposition: Patient will be discharged home in stable condition. Discharge medications: Instructions are given on resumption of patient's normal daily medications per primary care recommendation, in addition patient will be prescribed Lehigh 7.5 mg/325 mg, senna S. Discharge instructions: 1. Wound care and infection precautions, keep incision dry and covered while showering, no lotions, creams, moisturizers. No soaking, tubs, pools, hottubs. Do not scrub over the incision. 2. Weight-bear as tolerated with walker / cane until follow-up. 3. Ice and elevate when necessary. Do not exceed 20 minutes per hour with ice pack. 4. Utilize compression sleeve until seen at first follow up appointment. 5. Visiting nursing care. 6. Home physical therapy including home CPM. 7. Pain meds and anticoagulants per prescription. 8. Pain medication has potential to cause constipation. Increase oral fluid and fiber intake. Contact primary care provider if you have not had a bowel movement within 48 hours after discharge 9. No anti-inflammatory medication until discussed at first post operative visit, this including Motrin, Aleve, Mobic, Diclofenac. 10. Follow up in office at 2 weeks postop with Bam Craig PA-C/Raj Cee 11. Follow up with your primary care doctor 7-10 days after discharge. 12. Contact [facility] with any questions, . Procedures: Left total knee arthroplasty Patient Condition at Discharge: Good Plan - Discharge Summary Discharge Rx Participant: Yes New Discharge Prescriptions: New Sennosides/Docusate Sodium [Senna-S 8.6-50 mg Tablet] 1 each PO DAILY PRN #30 tablet PRN Reason: Constipation HYDROcodone/APAP 7.5-325MG [[place] 7.5] 1 each PO Q4HR PRN #42 tab PRN Reason: Pain No Action Isosorbide Mononitrate [Imdur] 30 mg PO QAM Aspirin EC [Ecotrin] 325 mg PO DAILY Metoprolol Tartrate [Lopressor] 50 mg PO BID Omeprazole 20 mg PO QAM Diphenox-Atrop 2.5-0.025 mg [Lomotil] 2 tab PO QID PRN PRN Reason: Diarrhea traZODone HCL 50 mg PO HS Citalopram Hydrobromide [CeleXA] 40 mg PO QAM lisinopriL [Zestril] 5 mg PO QAM Atorvastatin [Lipitor] 80 mg PO HS Amitriptyline HCl 50 mg PO DAILY Hydroxychloroquine Sulfate [Plaquenil] 200 mg PO BID predniSONE [Deltasone] 5 mg PO QAM Discharge Medication List Isosorbide Mononitrate [Imdur] 30 mg PO QAM 11/22/13 [History] Aspirin EC [Ecotrin] 325 mg PO DAILY 07/02/15 [History] Metoprolol Tartrate [Lopressor] 50 mg PO BID 01/19/17 [History] Omeprazole 20 mg PO QAM 01/19/17 [History] Diphenox-Atrop 2.5-0.025 mg [Lomotil] 2 tab PO QID PRN 01/24/17 [History] Citalopram Hydrobromide [CeleXA] 40 mg PO QAM 02/26/19 [History] traZODone HCL 50 mg PO HS 02/26/19 [History] Hydroxychloroquine Sulfate [Plaquenil] 200 mg PO BID 01/26/21 [History] Atorvastatin [Lipitor] 80 mg PO HS 04/26/21 [History] lisinopriL [Zestril] 5 mg PO QAM 04/26/21 [History] predniSONE [Deltasone] 5 mg PO QAM 03/02/22 [History] Amitriptyline HCl 50 mg PO DAILY 03/15/22 [History] HYDROcodone/APAP 7.5-325MG [[place] 7.5] 1 each PO Q4HR PRN #42 tab 03/16/22 [Rx] Sennosides/Docusate Sodium [Senna-S 8.6-50 mg Tablet] 1 each PO DAILY PRN #30 tablet 03/16/22 [Rx] Follow up Appointment(s)/Referral(s): [facility], [NON-STAFF] - 1-2 Days Killian Craig PAC [PHYSICIAN MULTIPLEX OPERATOR] - 2 Weeks Angelica Bales [NON-STAFF] - 1 Week Activity/Diet/Wound Care/Special Instructions: Orthopedic Discharge Instructions: 1. Wound care and infection precautions, keep incision dry and covered while showering, no lotions, creams, moisturizers. No soaking, pools, hot tubs. Do not scrub over incision. 2. Weight-bear as tolerated with walker / cane until follow-up. 3. Ice and elevate when necessary. Do not exceed 20 minutes per hour with ice pack. 4. Utilize compression sleeve until seen at first follow up appointment. 5. Pain meds and anticoagulants per prescription. 6. Pain medication has potential to cause constipation. Increase oral fluid and fiber intake. Contact primary care provider if you have not had a bowel movement within 48 hours after discharge. 7. No anti-inflammatory medication until discussed at first post operative visit, this including Motrin, Aleve, Mobic, Diclofenac. 8. Follow up in office at 2 weeks postop with Bam Craig PA-C/Raj Cameron PA-C 9. Follow up with your primary care doctor 7-10 days after discharge. 10. Contact [facility] with any questions, . Wound care instructions: 1. Okay to remove bone dressing as of 03/22/2021 2. After removal of bone dressing, can shower directly over the incision Discharge Disposition: HOME WITH HOME HEALTH SERVICES
[2022-03-16] MEDS ORDERED: ATORVASTATIN 80 MG TAB PO SCH (21:00)
== END 2022-03-16 15:48 | disposition home health service (06) ==
LOC: OR 11:20 → 4SSUR 14:25 → OR 03-16 15:48
PROVIDERS: ATTEND Orthopaedic Surgery
DX: M17.12 Unilateral primary osteoarthritis, left knee (principal); G89.18 Other acute postprocedural pain; I10 Essential (primary) hypertension; E78.5 Hyperlipidemia, unspecified; I25.10 Atherosclerotic heart disease of native coronary artery without angina pectoris; Z79.82 Long term (current) use of aspirin; Z79.899 Other long term (current) drug therapy; J44.9 Chronic obstructive pulmonary disease, unspecified; K21.9 Gastro-esophageal reflux disease without esophagitis; Z79.52 Long term (current) use of systemic steroids; Z80.1 Family history of malignant neoplasm of trachea, bronchus and lung; Z82.49 Family history of ischemic heart disease and other diseases of the circulatory system; Z85.41 Personal history of malignant neoplasm of cervix uteri; Z86.19 Personal history of other infectious and parasitic diseases; Z86.73 Personal history of transient ischemic attack (TIA), and cerebral infarction without residual deficits; Z87.11 Personal history of peptic ulcer disease; Z87.891 Personal history of nicotine dependence; Z88.5 Allergy status to narcotic agent; Z90.49 Acquired absence of other specified parts of digestive tract; Z95.1 Presence of aortocoronary bypass graft; Z95.5 Presence of coronary angioplasty implant and graft; Z96.653 Presence of artificial knee joint, bilateral
CPT/HCPCS: 97161; 64999; 64448; 76942; 88300; 87070; 73560; 27447; C1776; C1713 ×2; C1751; J2250; J1100; J0690 ×2; J2405; J3010 ×2; J7512; J2795; J1790

== ENCOUNTER 2022-03-31 09:25 | Day surgery (SDC) | payer MEDICARE, OTHER ==
[2022-03-30 08:30] VITALS: BMI 25.8
[~2022-03-31 09:25] MED LIST changes: -ACETAMINOPHEN TAB 500 MG TAB PO PRN; +CYCLOPENTOLATE 1% OPHTH SOLN 2 ML BTL OP PRN; -DEXAMETHASONE SOD PHOSPHATE 4 MG/ML 1 ML VIAL IV ONE; -MELOXICAM 7.5 MG TAB PO PRN; -MIDAZOLAM 2 MG/2 ML VIAL IV PRN; +MOXIFLOXACIN HCL 0.5% DROPS 3 ML BTL OP PRN; -ONDANSETRON 4 MG/2 ML VIAL IVP ONE; +PHENYLEPHRINE 2.5% OPHTH DRP 2ML OP PRN; +TETRACAINE 0.5% OPHTH (PF) DROPS 4 ML BTL OP PRN; +TIMOLOL 0.5% OPHTH DROPS 5 ML BTL OP PRN; -TRANEXAMIC ACID IN NACL,ISO-OS 1,000 MG in SALINE 1 100ML.BAG IVPB PRN
[2022-03-31] MEDS ORDERED: LIDOCAINE 1% (10MG/ML) FOR IV START INTRADERMA PRN (09:39)
[2022-03-31] MEDS ORDERED: fentaNYL (PF) 50 MCG/ML 2 ML AMP IV PRN (09:39)
[2022-03-31] MEDS ORDERED: ONDANSETRON 4 MG/2 ML VIAL IVP PRN (09:39)
[2022-03-31] MEDS ORDERED: LACTATED RINGERS 1,000 ML IV SCH (09:39)
[2022-03-31 10:05] VITALS: TEMP 97.1
[2022-03-31 10:15] LABS: Glucose,Whole Blood 84 mg/dL (70-110)
[2022-03-31] MEDS ORDERED: MIDAZOLAM 2 MG/2 ML VIAL ONE (11:13)
[2022-03-31] MEDS ORDERED: fentaNYL (PF) 50 MCG/ML 2 ML AMP ONE (11:13)
[2022-03-31] MEDS ORDERED: EPINEPHrine (PF) 0.3 ML in BALANCED SALT IRRIG SOLN COMB2 500 ML IRRIGATION ONE (11:13)
[2022-03-31] MEDS ORDERED: LIDOCAINE 1% (PF) 10MG/ML VIAL MISCELLANE ONE (11:14)
[2022-03-31] MEDS ORDERED: BALANCED SALT IRRIG SOLN COMB2 15 ML IRRIG.SOLN IRRIGATION ONE (11:14)
[2022-03-31] MEDS ORDERED: HYALURONATE SODIUM INTRAOCULAR 1 EACH SYRINGE (12MG/ML) INTRAOCULA ONE (11:14)
--- NOTE | 2022-03-31 11:39 | P.OP ---
Date of Procedure: 03/31/22 Preoperative Diagnosis: NS & CS Postoperative Diagnosis: same Procedure(s) Performed: PIOL, OS Implants: MX60E 21.00 Anesthesia: MAC Surgeon: Lewis Patel Pathology: none sent Condition: stable Disposition: same day Indications for Procedure: blurry vision Operative Findings: no complications
[2022-03-31 11:45] VITALS: RESP 16
[2022-03-31 12:17] VITALS: BP 122/67; PULSE 82
--- NOTE | 2022-03-31 20:26 | OP ---
OPERATIVE REPORT PREOPERATIVE DIAGNOSES: Nuclear sclerosis, cortical sclerosis. POSTOPERATIVE DIAGNOSES: Nuclear sclerosis, cortical sclerosis. OPERATION: Phacoemulsification of cataract and interocular lens implant, left eye. ESTIMATED BLOOD LOSS: Zero. SPECIMEN TAKEN: None. NARRATIVE: After obtaining the appropriate consent, the patient was brought to the operating room where the patient was placed under cardiac monitoring and prepped and draped in the usual sterile manner. At the 5 o'clock position, a 15-degree super sharp blade was used to create a paracentesis followed by instillation of 1% Xylocaine MPF 50:50 mix with BSS into the anterior chamber. This was followed by Amvisc viscoelastic to stabilize the anterior chamber. At the 3 o'clock position a self-sealing corneal flap incision was created using 2.8 mm jean-pierre keratome. A cystotome was used to initiate a continuous tear capsulorrhexis which was completed with the Utrata forceps. A Binkhorst cannula was used to hydrodissect the lens nucleus followed by hydrodelineation. Phacoemulsification of the lens was performed utilizing phacochop in 8.94 seconds at 16% power. The remaining cortical material was removed using the irrigation aspiration mode followed by additional 1% Xylocaine MPF into the anterior chamber followed by viscoelastic to stabilize the capsular bag. A [employer]ch [employer] Lomb MX60E 21.0 diopters posterior chamber lens was placed into the capsular bag without difficulty. The remaining viscoelastic material was removed from the anterior chamber with the irrigation/aspiration. Balanced salt solution was used to normalize the intraocular pressure. The incision was checked for watertight integrity. The patient then received 2 drops of 0.5% timolol followed by 2 drops Vigamox, was lightly patched and shielded in the usual manner. There were no complications from the procedure. The patient tolerated the procedure well and was returned to recovery in good condition. MMODL / IJN: [id number] /
== END 2022-03-31 12:36 | disposition home or self-care (01) ==
LOC: OR 09:25
PROVIDERS: ATTEND Ophthalmology
DX: H25.12 Age-related nuclear cataract, left eye (principal); H25.012 Cortical age-related cataract, left eye; I10 Essential (primary) hypertension; E78.5 Hyperlipidemia, unspecified; I25.10 Atherosclerotic heart disease of native coronary artery without angina pectoris; J44.9 Chronic obstructive pulmonary disease, unspecified; M19.90 Unspecified osteoarthritis, unspecified site; M06.9 Rheumatoid arthritis, unspecified; M41.9 Scoliosis, unspecified; K21.9 Gastro-esophageal reflux disease without esophagitis; Z86.73 Personal history of transient ischemic attack (TIA), and cerebral infarction without residual deficits; Z88.5 Allergy status to narcotic agent; Z79.899 Other long term (current) drug therapy; Z79.82 Long term (current) use of aspirin
CPT/HCPCS: 66982; C1780; J2250; J0171; J3010; J2001

== ENCOUNTER 2022-05-03 12:57 | Day surgery (SDC) | payer MEDICARE, OTHER ==
--- NOTE | 2022-05-02 23:46 | HP ---
HISTORY AND PHYSICAL DATE OF SURGERY: 05/03/2022. HISTORY OF PRESENT ILLNESS: Brynn Sr is a 67-year-old patient who had undergone recent left total knee arthroplasty on 03/15/2022. She apparently injured her knee and was seen with a displaced patella fracture. I recommended open reduction and internal fixation versus excision of the fragment. Procedure, risks, complications, benefits, and recovery were all discussed with the patient. She was agreeable. Consent regarding the procedure was obtained. PAST MEDICAL HISTORY: Cardiovascular disease, hypertension, hyperlipidemia, gastroesophageal reflux disease. PAST SURGICAL HISTORY: Total knee arthroplasty, tubal ligation, section, cholecystectomy, coronary artery bypass surgery, cardiac stents. DAILY MEDICATIONS: Aspirin, Lipitor, lisinopril, Prilosec, metoprolol, gabapentin, isosorbide, trazodone, Lyrica, hydrocodone. ALLERGIES: None reported. SOCIAL HISTORY: She does not smoke tobacco. PHYSICAL EXAMINATION: On evaluation of her left knee, shows a well-healed anterior incision. No evidence for any erythema or infective process. Her range of motion is limited secondary to her pain anteriorly. She is diffusely tender about the patella. There is no gross deformity or skin tenting. Her collateral ligaments appear stable. DIAGNOSTIC DATA: Radiographs of the left knee revealed a stable appearing total knee arthroplasty as well as a displaced patella fracture which involved the medial superficial area. The polyethylene component appeared stable. IMPRESSION: 1. Left knee patellar fracture. 2. Possible quadriceps/medial retinacular tear. 3. History of left total knee arthroplasty. 4. Cardiovascular disease. 5. Hypertension. 6. Hyperlipidemia. PLAN: Open reduction and internal fixation versus excision of left patella fragment with possible quadriceps/medial retinacular repair. MMODL / IJN: [id number] /
[~2022-05-03 12:57] MED LIST changes: -CYCLOPENTOLATE 1% OPHTH SOLN 2 ML BTL OP PRN; +DEXAMETHASONE SOD PHOSPHATE 4 MG/ML 1 ML VIAL IV ONE; +FAMOTIDINE 20 MG/2 ML VIAL IV PRN; +HYDROmorphone 0.5 MG/0.5 ML SYRINGE IVP PRN; +LACTATED RINGERS 1,000 ML IV SCH; +LIDOCAINE 1% (10MG/ML) FOR IV START INTRADERMA PRN; -MOXIFLOXACIN HCL 0.5% DROPS 3 ML BTL OP PRN; +ONDANSETRON 4 MG/2 ML VIAL IVP ONE; -PHENYLEPHRINE 2.5% OPHTH DRP 2ML OP PRN; -TETRACAINE 0.5% OPHTH (PF) DROPS 4 ML BTL OP PRN; -TIMOLOL 0.5% OPHTH DROPS 5 ML BTL OP PRN
[2022-05-03 13:33] LABS: Basophils % (A) 1 %; Eosinophils # (A) 0.2 k/uL (0-0.7); Eosinophils % (A) 3 %; HCT 36.5 % (34.0-46.0); HGB 11.5 gm/dL (11.4-16.0); Lymphocytes # (A) 1.9 k/uL (1.0-4.8); Lymphocytes % (A) 38 %; MCH 28.3 pg (25.0-35.0); MCHC 31.6 g/dL (31.0-37.0); MCV 89.6 fL (80.0-100.0); Mean Platelet Volume 6.7; Monocytes # (A) 0.3 k/uL (0-1.0); Monocytes % (A) 6 %; Neutrophils # (A) 2.5 k/uL (1.3-7.7); Neutrophils % (A) 49 %; Platelet Count 264 k/uL (150-450); RBC 4.07 m/uL (3.80-5.40); RDW 14.6 % (11.5-15.5); WBC 5.1 k/uL (3.8-10.6)
[2022-05-03 13:53] LABS: Albumin 3.8 g/dL (3.5-5.0); Calcium 8.8 mg/dL (8.4-10.2); Potassium 4.4 mmol/L (3.5-5.1); Total Bilirubin 0.3 mg/dL (0.2-1.3); Total Protein 6.8 g/dL (6.3-8.2)
[2022-05-03] MEDS ORDERED: MIDAZOLAM 2 MG/2 ML VIAL IVP ONE (13:55)
[2022-05-03] MEDS ORDERED: fentaNYL (PF) 50 MCG/1 ML VIAL IVP ONE (13:55)
[2022-05-03] MEDS ORDERED: GLYCOPYRROLATE 0.2 MG/ML 2 ML VIAL ONE (15:03)
[2022-05-03] MEDS ORDERED: SUCCINYLCHOLINE CHLORIDE 200 MG/10 ML VIAL IV ONE (15:03)
[2022-05-03] MEDS ORDERED: HYDROmorphone (PF) 1 MG/ML ONE (15:03)
[2022-05-03] MEDS ORDERED: ROPIVACAINE 5 MG/ML 30 ML VIAL ONE (15:03)
[2022-05-03] MEDS ORDERED: ROCURONIUM 10 MG/ML (5 ML VIAL) IV ONE (15:03)
[2022-05-03] MEDS ORDERED: PROPOFOL 10 MG/ML 20 ML VIAL IV ONE (15:03)
[2022-05-03] MEDS ORDERED: ePHEDrine 50 MG/ML 1 ML VIAL ONE (15:03)
[2022-05-03] MEDS ORDERED: NEOSTIGMINE 1 MG/ML 10 ML VIAL ONE (15:03)
[2022-05-03] MEDS ORDERED: LIDOCAINE 2% INJ 20 MG/ML (2 ML VIAL) ONE (15:03)
[2022-05-03] MEDS ORDERED: fentaNYL (PF) 50 MCG/ML 2 ML AMP ONE (15:03)
[2022-05-03] MEDS ORDERED: LACTATED RINGERS 1,000 ML IV ONE (15:05)
--- NOTE | 2022-05-03 15:38 | P.ANPRN ---
Procedure Note - Anesthesia - Nerve Block Performed Left Adductor Canal Single Time Out Performed: Yes (2615) Date of Procedure: 05/03/22 Procedure Start Time: 13:56 Procedure Stop Time: 14:01 Location of Patient: PreOp Indication: Acute Post-Operative Pain, Requested by Surgeon Specifically requested for management of pain by DrYenny: Ar Edge Sedation Type: Sedate with meaningful contact maintained Preparation: Sterile Prep Position: Supine Catheter: None Needle Types: Pajunk Needle Gauge: 21 Ultrasound used to visualize needle placement: Yes Ultrasound used to observe medication spread: Yes Injectate: 0.5% Ropivacaine (see comment for volume) (30cc) Blood Aspirated: No Pain Paresthesia on Injection Noted: No Resistance on Injection: Normal Image Stored and Saved: Yes Events: Uneventful and Well Tolerated
[2022-05-03] MEDS ORDERED: ceFAZolin 3,000 MG in SODIUM CHLORIDE 0.9% IRRIGATIO 3,000 ML IRRIGATION ONE (15:48)
[2022-05-03] MEDS ORDERED: ONDANSETRON 4 MG/2 ML VIAL IVP PRN (16:59)
[2022-05-03] MEDS ORDERED: HYDROmorphone 0.5 MG/0.5 ML SYRINGE IVP PRN ×2 (16:59)
[2022-05-03] MEDS ORDERED: HYDROmorphone 1 MG/ML 1 ML SYRINGE IVP PRN (16:59)
[2022-05-03] MEDS ORDERED: NALOXONE 0.4 MG/ML 1 ML VIAL IV PRN (16:59)
[2022-05-03] MEDS ORDERED: HYDROcodone/APAP 5-325MG 1 EACH TAB PO PRN (16:59)
--- NOTE | 2022-05-03 16:59 | P.OP ---
Date of Procedure: 05/03/22 Preoperative Diagnosis: 1. Left knee patellar fracture with possible quadriceps tendon tear 2. History left total knee arthroplasty Postoperative Diagnosis: 1. Left knee perirosthetic patella fracture 2. Left knee quadriceps tendon tear 3. Left knee lateral retinacular tear 4. Left knee medial retinacular tear Procedure(s) Performed: 1. Left knee quadriceps tendon repair 2. Left knee lateral retinacular repair 3. Left knee medial retinacular repair 4. Left knee excision patellar fragment 5. Left knee tibial size 3 fixed-bearing 6 mm polyethylene exchange Implants: Depuy attune size 3 fixed bearing 6 mm polyethylene tibial insert Anesthesia: SABRINA Surgeon: Ar Edge Manual Lathe Machinist #1: Killian Craig Estimated Blood Loss (ml): 30 Pathology: none sent Condition: stable Disposition: PACU Indications for Procedure: 67-year-old patient was seen in the office with history of left total knee arthroplasty proximal multiple. She injured her knee. She is a poor historian. On examination she was felt to have possible quadriceps tendon tear. X-rays did show a lateral patellar periprosthetic fragment. We discussed arthrotomy with excision versus repair of the patella fragment, possible quadriceps tendon repair as well as exploration of the area. Patient was agreeable and consent was obtained. Operative Findings: See description of procedure Description of Procedure: The patient was taken to the operative suite after receiving preoperative IV antibiotics. She underwent a general anesthetic by the department of anesthesia. A well-padded tourniquet was placed on the proximal left thigh. The left lower extremity was prepped and draped in the normal sterile orthopedic fashion. The extremity was elevated and the tourniquet was insufflated to 300. An incision was made through previous cicatrix sharply through skin. We dissected down revealing encountered a hemarthrosis. We noted immediately a quadriceps tendon tear which was complete with some soft tissue remnant along the superior pole of the patella. We noted a complete lateral retinacular tear along the border of the patella along with a complete medial or lateral retinacular tear along the medial border of the patella. There was some soft tissue in the lateral side and really no soft tissue of the medial side. We also noted a fracture of the lateral patellar fragment which was scarred down to the lateral retinaculum. This really did not appear to be acute given all the scar tissue in the knee. The patient was unable to extend the knee beyond about 40. I felt this was secondary to scarring behind the knee. At this point I carefully dissected to find my soft tissue planes around the proximal quadriceps area. I dissected both medially and laterally to find my soft tissue planes along the medial lateral capsule areas. I now created a new medial arthrotomy cicatrix for the wound. The patella was just being held a sense about the patellar tendon. I again cannot extend the knee. I remove the polyethylene tibial insert which was a size 8mm. At this point I explored the posterior aspect of the capsule area and found no debris or bony fragments. I felt the scar tissue was now allowing us to fully extend the knee. At this point the lateral soft tissues were fairly scarred down so therefore performed a lateral retinacular release. I also released some soft tissues laterally. At this point we irrigated the wound out copiously with pulse lavage mechanical irrigation with antibiotic irrigant. We now trialed our polyethylene trials and a size 6 guide us to near full extension with maybe a +1 medial laxity. When I went up 1 mm we lacked significant extension. I decided to go ahead and place a 6 mm polyethylene tibial insert which we did and made sure was secure. I now began working on repairing the anterior extensor mechanism. I first decided that that lateral patellar fragment was not repairable and was excised. I now repaired the lateral soft tissues/retinaculum to the soft tissues along the remaining soft tissues on that lateral border of the patella that. This was done utilizing #2 Ethibond suture. We had a good repair there. Along with that substantial lateral release the patella seemed to be able to get into the sulcus easily and stated there without significant tensioning laterally. I now repaired the quadriceps tendon utilizing #2 Ethibond suture. This was repaired with multiple simple interrupted sutures along with a couple portal mattress sutures. The repair seemed solid. We now turned our attention to the medial retinaculum. I made some small little holes to the bone medially along the patella and I repaired that to the medial retinaculum with #2 Ethibond suture utilizing multiple simple interrupted sutures. I repaired the patellar tendon in the same fashion. We now flexed the knee to about 60 or 70 and noted good stability of her extensor mechanism. A lacked about 3-4 of terminal extension but it was stable medial to lateral. At this point the wound was irrigated copiously. The tourniquet was released and additional hemostasis was achieved via electrocautery. The subcutaneous soft tissues were repaired with 2-0 Vicryl. The skin was approximated with nixon. We applied sterile dressings. She was placed into a long knee immobilizer. Patient was awakened, transferred to a bed and recovery stable condition. Bam FELDER assisted with all aspects of this complex procedure.
[2022-05-03] MEDS: HYDROcodone/APAP 7.5-325MG 1 EACH TAB PO PRN (20:43)
--- NOTE | 2022-05-04 02:18 | P.CONS ---
History of Present Illness - Reason for Consult Consult date: 05/03/22 - History of Present Illness The patient is a 66-year-old female with a PMH of COPD, rheumatoid arthritis, history of CVA and CAD, hypertension and hyperlipidemia who was admitted to the hospital for a planned left patellar fracture repair. The patient underwent the procedure earlier today and was seen postoperatively on surgical unit. She reported excellent control her pain at the time of interview, rated at a 2 out of 10. She denied any additional complaints. Patient states that she has gotten out of bed but has not had a bowel movement as of yet. Denied experiencing chest discomfort, shortness of breath, fever, chills, cough, nausea, vomiting. She reports compliance with her medications at home. The patient's laboratory evaluation was reviewed and was unremarkable except for sodium of 135. Review of systems: Pertinent positives and negatives as discussed in HPI, a complete review of systems was performed and all other systems are negative. Physical examination: General: non toxic, no distress, appears at stated age, normal weight Derm: no unusual rashes/lesions, warm Head: atraumatic, normocephalic, symmetric Eyes: EOMI, no lid lag, anicteric sclera, pupils equal round reactive to light ENT: Nose and ears atraumatic Neck: No cervical lymphadenopathy, trachea midline, supple Mouth: no lip lesion, mucus membranes moist Cardiovascular: Holosystolic murmur appreciated, positive dorsalis pedis pulse bilateral, no edema Lungs: CTA bilateral, no rhonchi, no rales, no accessory muscle use Abdominal: soft, nontender to palpation, no guarding Ext: Left knee brace in place, muscle strength 5 out of 5 in all extremities grossly except left lower extremity, no gross muscle atrophy, no contractures, distal left lower extremities strength 5 out of 5 Neuro: CN II-XI grossly intact, no gross focal neuro deficits Psych: Alert, oriented, appropriate affect Assessment/plan Chronic conditions: COPD, rheumatoid arthritis, history of CVA, Hypertension, hyperlipidemia, -Continue with patient's home Lopressor 50 mg, Imdur 30 mg, and lisinopril 5 mg for patient's chronic hypertension -Also continue with Lipitor 80 mg. Hold off on patient's home aspirin 325 mg by mouth once daily -Defer to the primary surgery service with regards to resumption of aspirin -Patient previously on Plaquenil. Currently on hold. She has also recently been on a Steroid taper. Holosystolic murmur -Patient underwent a cardiac clearance prior to surgery -She follows routinely with her conduit bender Status post left patellar repair surgery -Defer management including pain control and DVT prophylaxis to the primary surgery service We appreciate this opportunity to be involved in this patient's care. We will follow the patient with you. For any further questions, please not hesitate to contact the [facility] inpatient team. Past Medical History Past Medical History: Coronary Artery Disease (CAD), Cancer, Chest Pain / Angina, COPD, CVA/TIA, GERD/Reflux, Hyperlipidemia, Hypertension, Osteoarthritis (OA), Rheumatoid Arthritis (RA), Skin Disorder, Vascular Disorder Additional Past Medical History / Comment(s): chronic back pain., scoliosis., he art murmur, SOB w/activity, hx of gastric ulcer, cervical cancer, eczema, TIA- no residuals., frequent diarrhea., hepatitis C with tx,hamlet cataracts, left knee replaced recently-not healing well per pt, lot of pain, recent cataract surg. History of Any Multi-Drug Resistant Organisms: None Reported Past Surgical History: Section, Cholecystectomy, Coronary Bypass/CABG, Heart Catheterization, Heart Catheterization With Stent, Joint Replacement, Orthopedic Surgery, Tubal Ligation Additional Past Surgical History / Comment(s): triple CABG 2008, ORIF right leg, ., heart cath with stent 2013([facility])., heart cath no stent (2019). left knee replaced 03-15-22 Past Anesthesia/Blood Transfusion Reactions: No Reported Reaction Date of Last Stent Placement:: 2013 Smoking Status: Former smoker - Past Family History Father Family Medical History: Cancer, Dementia Additional Family Medical History / Comment(s): AT AGE 84-LUNG CANCER. Mother Family Medical History: Coronary Artery Disease (CAD) Additional Family Medical History / Comment(s): AT AGE 73. Brother(s) Family Medical History: Cancer Medications and Allergies Home Medications Medication Instructions Recorded Confirmed Type Isosorbide Mononitrate [Imdur] 30 mg PO QAM 11/22/13 05/03/22 History Aspirin EC [Ecotrin] 325 mg PO DAILY 07/02/15 05/03/22 History Metoprolol Tartrate [Lopressor] 50 mg PO BID 01/19/17 05/03/22 History Omeprazole 20 mg PO QAM 01/19/17 05/03/22 History Citalopram Hydrobromide [CeleXA] 40 mg PO QAM 02/26/19 05/03/22 History traZODone HCL 50 mg PO HS 02/26/19 05/03/22 History Atorvastatin [Lipitor] 80 mg PO HS 04/26/21 05/03/22 History lisinopriL [Zestril] 5 mg PO QAM 04/26/21 05/03/22 History Amitriptyline HCl 50 mg PO HS 03/15/22 05/03/22 History HYDROcodone/APAP 7.5-325MG [[place] 1 each PO Q4HR PRN #42 tab 03/16/22 05/03/22 Rx 7.5] Sennosides/Docusate Sodium 1 each PO DAILY PRN #30 tablet 03/16/22 05/03/22 Rx [Senna-S 8.6-50 mg Tablet] Allergies Allergy/AdvReac Type Severity Reaction Status Date / Time codeine AdvReac Nausea & Verified 05/03/22 12:59 Vomiting Physical Exam Vitals: Vital Signs Temp Pulse Resp BP Pulse Ox 05/03/22 18:07 97 05/03/22 17:52 86 18 147/70 97 05/03/22 17:37 85 16 169/72 94 L 05/03/22 17:22 82 16 173/75 93 L 05/03/22 17:07 96.9 F L 78 16 179/81 95 05/03/22 14:39 72 123/60 05/03/22 14:25 70 14 98/55 99 05/03/22 14:12 71 12 91/50 99 05/03/22 14:05 67 12 78/42 98 05/03/22 14:00 69 12 69/31 100 05/03/22 13:26 97.4 F L 80 18 139/65 98 Intake and Output 05/03/22 05/03/22 05/04/22 14:59 22:59 06:59 Intake Total 900 951 Output Total 30 Balance 900 921 Intake: IV 900 951 Output: Estimated Blood Loss 30 Other: Weight 59.2 kg Results CBC & Chem 7: 05/03/22 13:25 05/03/22 13:25 Labs: Abnormal Lab Results - Last 24 Hours (Table) 05/03/22 Range/Units 13:25 Sodium 135 L (137-145) mmol/L
[2022-05-04] MEDS: HYDROcodone/APAP 7.5-325MG 1 EACH TAB PO PRN ×3 (04:05→21:17)
[2022-05-04] MEDS: LACTATED RINGERS 1,000 ML IV SCH ×2 (07:39→17:42)
[2022-05-04] MEDS: METOPROLOL TARTRATE 50 MG TAB PO SCH ×2 (09:12→21:18)
[2022-05-04] MEDS: ISOSORBIDE MONONITRATE ER 30 MG TAB.ER.24H PO SCH (09:12)
[2022-05-04] MEDS: ENOXAPARIN 30 MG/0.3 ML SYRINGE SQ SCH ×2 (09:12→21:19)
[2022-05-04] MEDS: CITALOPRAM HYDROBROMIDE 20 MG TAB PO SCH (09:12)
[2022-05-04] MEDS: lisinopriL 5 MG TAB PO SCH (09:12)
[2022-05-04 10:07] LABS: Basophils # (A) 0.02 X 10*3/uL (0.00-0.10); Basophils % (A) 0.3 %; Eosinophils # (A) 0.01 X 10*3/uL (0.04-0.35); Eosinophils % (A) 0.1 %; HCT 32.2 % (37.2-46.3); Immature Grans, Automated 0.7 %; Lymphocytes # (A) 1.11 X 10*3/uL (0.90-5.00); Lymphocytes % (A) 15.3 %; MCH 28.1 pg (27.0-32.0); MCHC 31.1 g/dL (32.0-37.0); MCV 90.4 fL (80.0-97.0); Mean Platelet Volume 8.9 fL (9.5-12.2); Monocytes # (A) 0.58 X 10*3/uL (0.20-1.00); NRBC Per 100 WBC 0 /100 WBCS (0.0-0.0); Neutrophils # (A) 5.49 X 10*3/uL (1.80-7.70); Neutrophils % (A) 75.6 %; Platelet Count 199 X 10*3/uL (140-440); RBC 3.56 X 10*6/uL (4.10-5.20); RDW 14.2 % (11.5-14.5); WBC 7.26 X 10*3/uL (4.50-10.00)
[2022-05-04] MEDS: PANTOPRAZOLE 40 MG TABLET PO SCH (10:28)
--- NOTE | 2022-05-04 12:27 | P.PN ---
Subjective Progress Note Date: 05/04/22 Principal diagnosis: Status post left knee quadriceps tendon, medial and lateral retinacular repair, patella fragment excision, polyethylene liner exchange Patient is evaluated at bedside today, she is resting in her hospital bed. Patient states that she has some generalized soreness over the front of the knee. She has been utilizing the knee immobilizer as instructed, they did provide some padding at the distal end toward her ankle. She currently has no headaches, lightheadedness, chest pain or shortness of breath Objective - Vital Signs Vital signs: Vital Signs Temp 99.9 F H 05/04/22 07:31 Pulse 101 H 05/04/22 07:31 Resp 19 05/04/22 07:31 BP 182/79 05/04/22 07:31 Pulse Ox 94 L 05/04/22 08:50 FiO2 Intake & Output 05/03/22 05/04/22 05/04/22 18:59 06:59 18:59 Intake Total 1851 Output Total 30 Balance 1821 Weight 59.2 kg 59.2 kg Intake: IV 1851 Output: Estimated Blood Loss 30 Other: Voiding Method External Catheter - Exam Left lower extremity: Immobilizer is in good position and condition at this time. Patient is able to wiggle the toes with no difficulty, her dorsalis pedis pulses 2+. sensory exam both proximal distal to the immobilizer intact. Compartments are soft and compressible both in the posterior areas of the upper leg. - Labs CBC & Chem 7: 05/04/22 04:53 05/03/22 13:25 Labs: Abnormal Lab Results - Last 24 Hours (Table) 05/03/22 05/04/22 Range/Units 13:25 04:53 RBC 3.56 L (4.10-5.20) X 10*6/uL Hgb 10.0 L (12.0-15.0) g/dL Hct 32.2 L (37.2-46.3) % MCHC 31.1 L (32.0-37.0) g/dL MPV 8.9 L (9.5-12.2) fL Immature Gran # 0.05 H (0.00-0.04) X 10*3/uL Eosinophils # 0.01 L (0.04-0.35) X 10*3/uL Sodium 135 L (137-145) mmol/L Assessment and Plan Assessment: Post op day #1 s/p left knee quadriceps tendon, medial and lateral retinacular repair, patella fragment excision, polyethylene liner exchange Plan: Pain control, continue current regimen DVT prophylaxis, continue subq medication Non weightbearing left lower extremity, continue use of the knee immobilizer Dressing instructions: Will change dressing on 04/07/2022 Utilize walker/ wheelchair for ambulation Medical recommendations Discharge planning: Discussed with case management and nursing, patient will be set up for subacute rehab. We will continue to follow during inpatient stay Time with Patient: Less than 30
[2022-05-04] MEDS: ALBUTEROL HFA INHALER INHALATION PRN (15:35)
--- NOTE | 2022-05-04 17:18 | P.PN ---
Subjective Progress Note Date: 05/04/22 (delayed charting seen at 1120) Patient is a 67-year-old female with COPD, rheumatoid arthritis, CVA and CAD, hypertension, and dyslipidemia who is admitted for planned left patellar fract ure repair. Patient underwent procedure on 05/03/22 without any immediate postoperative complications. Patient seen and examined at bedside. She does complain of some pain in her knee. She denies any lightheadedness, dizziness, nausea, or vomiting. She states she was unable to move far and just pivited from the bed to the chair. Vital signs reviewed General: nontoxic, no distress, appears at stated age Cardiovascular: S1S2 reg, grade 4 murmur, positive posterior tibial pulse bilateral, Lungs: CTA bilateral, no rhonchi, no rales , no accessory muscle use Abdominal: soft, nontender to palpation, no guarding, no appreciable organomegaly Ext: no gross muscle atrophy, no edema, no contractures, left knee with knee immobilizer in place Neuro: CN II-XI grossly intact, no focal neuro deficits Psych: Alert, oriented, appropriate affect Assessment: 67-year-old female status post left knee patellar fracture repair with quadriceps tendon repair Acute blood loss anemia anticipated outcome of surgery. Hypertension, Accelerated Dyslipidemia Chronic: COPD without exacerbation GERD Rheumatoid arthritis Scoliosis Heart murmur Data Review: White blood cell count 7.26, hemoglobin 10, hematocrit 32.2, platelets 179 Plan: - repeat CBC in AM to ensure stability of hgb after surgery - vitals reviewed and tempt 99.9 in AM and BP 182/70 - HTN is likely accelerated due to pain continue with Lisinopril 5 mg daily and lopressor 50 mg BID. - Ortho note reviewed. Patient will need SNF on discharge. Thank you for allowing us to participate in the care of this pleasant patient. Do not hesitate to contact us with questions. Someone can be reached from the [facility] hospitalist group all hours of the day at [phone] or via [employer]. Objective - Vital Signs Vital signs: Vital Signs Temp 98.7 F 05/04/22 14:00 Pulse 83 05/04/22 14:00 Resp 17 05/04/22 14:00 BP 162/66 05/04/22 14:00 Pulse Ox 93 L 05/04/22 14:00 FiO2 Intake & Output 05/03/22 05/04/22 05/04/22 18:59 06:59 18:59 Intake Total 1851 Output Total 30 700 Balance 1821 -700 Weight 59.2 kg 59.2 kg Intake: IV 1850 Output: Urine 700 Estimated Blood Loss 30 Other: Voiding Method External Catheter External Catheter - Labs CBC & Chem 7: 05/04/22 04:53 05/03/22 13:25 Labs: Abnormal Lab Results - Last 24 Hours (Table) 05/04/22 Range/Units 04:53 RBC 3.56 L (4.10-5.20) X 10*6/uL Hgb 10.0 L (12.0-15.0) g/dL Hct 32.2 L (37.2-46.3) % MCHC 31.1 L (32.0-37.0) g/dL MPV 8.9 L (9.5-12.2) fL Immature Gran # 0.05 H (0.00-0.04) X 10*3/uL Eosinophils # 0.01 L (0.04-0.35) X 10*3/uL
[2022-05-04] MEDS: ATORVASTATIN 80 MG TAB PO SCH (21:18)
[2022-05-04] MEDS: traZODone HCL 50 MG TAB PO SCH (21:18)
[2022-05-04] MEDS: AMITRIPTYLINE HCL 50 MG TABLET PO SCH (21:28)
[2022-05-05] MEDS: LACTATED RINGERS 1,000 ML IV SCH ×2 (05:43→17:57)
[2022-05-05] MEDS: HYDROcodone/APAP 7.5-325MG 1 EACH TAB PO PRN ×3 (06:35→19:25)
[2022-05-05 07:23] LABS: HCT 32.1 % (34.0-46.0); HGB 10.8 gm/dL (11.4-16.0); MCH 29.4 pg (25.0-35.0); MCHC 33.6 g/dL (31.0-37.0); MCV 87.3 fL (80.0-100.0); Mean Platelet Volume 6.9; Platelet Count 193 k/uL (150-450); RBC 3.67 m/uL (3.80-5.40); RDW 14.4 % (11.5-15.5); WBC 5.1 k/uL (3.8-10.6)
[2022-05-05] MEDS: ISOSORBIDE MONONITRATE ER 30 MG TAB.ER.24H PO SCH (09:42)
[2022-05-05] MEDS: PANTOPRAZOLE 40 MG TABLET PO SCH (09:42)
[2022-05-05] MEDS: lisinopriL 5 MG TAB PO SCH (09:42)
[2022-05-05] MEDS: CITALOPRAM HYDROBROMIDE 20 MG TAB PO SCH (09:42)
[2022-05-05] MEDS: ENOXAPARIN 30 MG/0.3 ML SYRINGE SQ SCH ×2 (09:43→21:35)
--- NOTE | 2022-05-05 10:38 | P.PN ---
Subjective Progress Note Date: 05/05/22 Principal diagnosis: Status post left knee quadriceps tendon, medial and lateral retinacular repair, patella fragment excision, polyethylene liner exchange Patient is evaluated at bedside today, she is resting in her hospital bed. Patient states that she has some generalized soreness over the front of the knee. She currently has no headaches, lightheadedness, chest pain or shortness of breath Objective - Vital Signs Vital signs: Vital Signs Temp 99.6 F 05/05/22 07:20 Pulse 90 05/05/22 07:20 Resp 17 05/05/22 07:20 BP 170/78 05/05/22 07:20 Pulse Ox 91 L 05/05/22 07:20 FiO2 Intake & Output 05/04/22 05/05/22 05/05/22 18:59 06:59 18:59 Intake Total 1010 Output Total 700 Balance 310 Intake: Intake, IV Titration 1010 Amount Lactated Ringers 1,000 ml 960 @ 80 mls/hr IV .[id number] [facility] Rx#:[id number] ceFAZolin 1,000 mg In 50 Sodium Chloride 0.9% 50 ml @ 100 mls/hr IVPB Q8HR [facility] Rx#:[id number] Output: Urine 700 Other: Voiding Method External Catheter External Catheter # Voids 3 - Exam Left lower extremity: The immobilizer was removed today at bedside, the. Bandages were changed, a Opteform dressing was placed. [place] were all in good position and condition. No active drainage visualized, generalized ecchymosis and soft tissue swelling noted at the borders of the incision. Patient is able to wiggle the toes with no difficulty, her dorsalis pedis pulses 2+. sensory exam both proximal distal to the immobilizer intact. Compartments are soft and compressible both in the posterior areas of the upper leg. - Labs CBC & Chem 7: 05/05/22 06:22 05/03/22 13:25 Labs: Abnormal Lab Results - Last 24 Hours (Table) 05/05/22 Range/Units 06:22 RBC 3.67 L (3.80-5.40) m/uL Hgb 10.8 L (11.4-16.0) gm/dL Hct 32.1 L (34.0-46.0) % Assessment and Plan Assessment: Post op day #2 s/p left knee quadriceps tendon, medial and lateral retinacular repair, patella fragment excision, polyethylene liner exchange Plan: Pain control, continue current regimen DVT prophylaxis, continue subq medication Non weightbearing left lower extremity, continue use of the knee immobilizer Utilize walker/ wheelchair for ambulation Medical recommendations Discharge planning: Patient's authorization has been approved for subcu rehab, we are planning for discharge on 05/06/2022 Time with Patient: Less than 30
[2022-05-05] MEDS: METOPROLOL TARTRATE 50 MG TAB PO SCH ×2 (11:08→21:35)
[2022-05-05] MEDS: ALBUTEROL HFA INHALER INHALATION PRN ×2 (12:20→17:00)
--- NOTE | 2022-05-05 14:22 | P.PN ---
Subjective Patient seen and examined at bedside. Patient states that her pain is well- controlled with medications. Patient denies chest pain, shortness breath, nausea, vomiting, fever, or chills. No acute changes overnight. Objective - Vital Signs Vital signs: Vital Signs Temp 99.6 F 05/05/22 07:20 Pulse 90 05/05/22 07:20 Resp 17 05/05/22 07:20 BP 170/78 05/05/22 07:20 Pulse Ox 91 L 05/05/22 07:20 FiO2 Intake & Output 05/04/22 05/05/22 05/05/22 18:59 06:59 18:59 Intake Total 1010 Output Total 700 Balance 310 Intake: Intake, IV Titration 1010 Amount Lactated Ringers 1,000 ml 960 @ 80 mls/hr IV .[id number] [facility] Rx#:[id number] ceFAZolin 1,000 mg In 50 Sodium Chloride 0.9% 50 ml @ 100 mls/hr IVPB Q8HR [facility] Rx#:[id number] Output: Urine 700 Other: Voiding Method External Catheter External Catheter # Voids 3 - Exam General: [non toxic], [no distress], [appears at stated age] Derm: [warm], [dry] Head: [atraumatic], [normocephalic], [symmetric] Eyes: [EOMI], [no lid lag], [anicteric sclera] Mouth: [no lip lesion], [mucus membranes moist] Cardiovascular: [S1S2 reg], [no murmur], [positive posterior tibial pulse bilateral], Lungs: [CTA bilateral], [no rhonchi, no rales] , [no accessory muscle use] Abdominal: [soft], [ nontender to palpation], [no guarding], [no appreciable organomegaly] Ext: [no gross muscle atrophy], [no edema], [no contractures] Neuro: [ CN II-XI grossly intact], [no focal neuro deficits] Psych: [Alert], [oriented], [appropriate affect] - Labs CBC & Chem 7: 05/05/22 06:22 05/03/22 13:25 Labs: Abnormal Lab Results - Last 24 Hours (Table) 05/05/22 Range/Units 06:22 RBC 3.67 L (3.80-5.40) m/uL Hgb 10.8 L (11.4-16.0) gm/dL Hct 32.1 L (34.0-46.0) % Assessment and Plan Assessment: 1. Acute blood loss anemia likely secondary to surgery Hemoglobin stable at 10.8 this morning 2. Hypertension uncontrolled likely due to pain Systolic blood pressure has been consistently been above 140/90 for the past few days increase lisinopril to 10mg by mouth daily Continue metoprolol 50 mg by mouth twice a day Check vitals every 4 hours 3. Status post left knee patellar fracture repair with quadriceps tendon repair Under the care of orthopedic surgery 4. Chronic conditions: COPD without exacerbation, GERD, rheumatoid arthritis, scoliosis, heart murmur, dyslipidemia Thank you for allowing us to participate in the care of this pleasant patient. Do not hesitate to contact us with questions. Someone can be reached from the [facility] hospitalist group all hours of the day at [phone] or via [employer].
[2022-05-05] MEDS ORDERED: METOPROLOL TARTRATE 25 MG TAB PO SCH (21:00)
[2022-05-05] MEDS: traZODone HCL 50 MG TAB PO SCH (21:35)
[2022-05-05] MEDS: ATORVASTATIN 80 MG TAB PO SCH (21:35)
[2022-05-05] MEDS: AMITRIPTYLINE HCL 50 MG TABLET PO SCH (21:36)
[2022-05-06] MEDS: LACTATED RINGERS 1,000 ML IV SCH (05:52)
[2022-05-06] MEDS: PANTOPRAZOLE 40 MG TABLET PO SCH (05:52)
[2022-05-06] MEDS: HYDROcodone/APAP 7.5-325MG 1 EACH TAB PO PRN (05:56)
[2022-05-06] MEDS: METOPROLOL TARTRATE 50 MG TAB PO SCH (08:35)
[2022-05-06] MEDS: CITALOPRAM HYDROBROMIDE 20 MG TAB PO SCH (08:35)
[2022-05-06] MEDS: ISOSORBIDE MONONITRATE ER 30 MG TAB.ER.24H PO SCH (08:35)
[2022-05-06] MEDS: ENOXAPARIN 30 MG/0.3 ML SYRINGE SQ SCH (08:36)
[2022-05-06] MEDS ORDERED: lisinopriL 10 MG TAB PO SCH (09:00)
--- NOTE | 2022-05-06 09:44 | P.PN ---
Subjective Progress Note Date: 05/06/22 Principal diagnosis: Status post left knee quadriceps tendon, medial and lateral retinacular repair, patella fragment excision, polyethylene liner exchange Patient is evaluated at bedside today, she is resting in her hospital bed. She is controlled currently. She is utilizing a knee immobilizer. She currently has no headaches, lightheadedness, chest pain or shortness of breath Objective - Vital Signs Vital signs: Vital Signs Temp 99.3 F 05/06/22 06:47 Pulse 97 05/06/22 06:47 Resp 17 05/06/22 06:47 BP 162/78 05/06/22 06:47 Pulse Ox 99 05/06/22 09:03 FiO2 Intake & Output 05/05/22 05/06/22 05/06/22 18:59 06:59 18:59 Intake Total 118 Output Total 150 250 Balance -32 -250 Intake: Oral 118 Output: Urine 150 250 - Exam Left lower extremity: Dressing is clean, dry and intact. No active drainage visualized, generalized ecchymosis and soft tissue swelling noted at the borders of the incision. Patient is able to wiggle the toes with no difficulty, her dorsalis pedis pulses 2+. sensory exam both proximal distal to the immobilizer intact. Compartments are soft and compressible both in the posterior areas of the upper leg. - Labs CBC & Chem 7: 05/05/22 06:22 05/03/22 13:25 Assessment and Plan Assessment: Post op day #3 s/p left knee quadriceps tendon, medial and lateral retinacular repair, patella fragment excision, polyethylene liner exchange Plan: Pain control, plan for discharge on [place] 5 mg/325 mg DVT prophylaxis, aspirin 325 mg daily after discharge Non weightbearing left lower extremity, continue use of the knee immobilizer Utilize walker/ wheelchair for ambulation Medical recommendations Discharge planning: Plan is for discharge to subacute rehab today Time with Patient: Less than 30
--- NOTE | 2022-05-06 10:09 | P.DS ---
Providers Date of admission: 05/03/22 16:59 Expected date of discharge: 05/06/22 Attending physician: Ar Edge Consults: 05/03/22 16:59 Consult Physician Routine Consulting Provider: Raúl Estrada Consult Reason/Comments: Medical management Do you want consulting provider notified?: Yes Primary care physician: [facility] Course: Date of admission: 05/03/2022 Date of discharge: 05/06/2022 Admission diagnosis: Left knee medial retinacular, lateral retinacular, quadriceps tendon tear, patella fracture, history of recent left total knee arthroplasty Discharge diagnosis: Same Attending physician: Dr. Edge Surgical procedures: Left knee open medial retinacular repair, lateral retinacular repair, quadriceps tendon repair, excision patella fragment, polyethylene liner exchange Brief history: Patient is a 67-year-old female who had originally undergone a left total knee arthroplasty by Dr. Edge in March 2022. Patient was evaluated in the office last week with regards to concern of pain in her left knee. After further investigation she was seen in the emergency room and [facility] on 04/24/2022 with concern of recent falls. After evaluation in the office for review of x-rays, was determined she had a fracture involving the lateral patellar facet, there is also high concern for an extensor mechanism injury. Patient was scheduled for surgery for 05/03/2022. Hospital course: Details of patient's surgery can be found in operative report. Patient tolerated the procedure well and was subsequently transported to orthopedic floor. Patient's orthopeidc and medical care was provided daily. Patient had daily laboratory tests performed for evaluation of overall blood counts. Patient had daily physical therapy to include strengthening range of motion as well as education with walker ambulation. Patient was treated with Lovenox for their postoperative DVT prophylaxis during their inpatient stay. Patient was noted to have a relatively uneventful postoperative course. Patient reported satisfactory pain control with oral pain medications by postoperative day 1. Patient showed satisfactory progress with physical therapy. Patient moved steadily through the program and had no difficulty meeting the goals by postoperative day 3. Given patient's otherwise satisfactory course and having met physical therapy goals, plan is to discharge patient subacute rehab on postoperative day 3. Discharge condition/disposition: Patient will be discharged to subacute rehab in stable condition. Discharge medications: Instructions are given on resumption of patient's normal daily medications per primary care recommendation, in addition patient will be prescribed [place] 5 mg/325 mg, Senna S. Discharge instructions: 1. Utilize knee immobilizer at all times, then he must remain fully straight 2. Toe-touch weight bearing when transferring, utilize walker or wheelchair 3. Please remove the foam dressing on 05/12/2022 4. After removal of foam dressing okay to shower directly over the incision, the leg must remain in full extension when showering 5. Ice and elevate often 6. Plan for follow-up at [facility] in 2 weeks for recheck Procedures: Medial retinacular repair Lateral retinacular repair Quadriceps tendon repair Patella fragment excision Polyethylene liner exchange Patient Condition at Discharge: Stable Plan - Discharge Summary Discharge Rx Participant: Yes New Discharge Prescriptions: New HYDROcodone/APAP 5-325MG [[place] 5-325] 1 tab PO Q6HR PRN #21 tab PRN Reason: Pain Discontinued HYDROcodone/APAP 7.5-325MG [[place] 7.5] 1 each PO Q4HR PRN #42 tab PRN Reason: Pain No Action Isosorbide Mononitrate [Imdur] 30 mg PO QAM Aspirin EC [Ecotrin] 325 mg PO DAILY Metoprolol Tartrate [Lopressor] 50 mg PO BID Omeprazole 20 mg PO QAM traZODone HCL 50 mg PO HS Citalopram Hydrobromide [CeleXA] 40 mg PO QAM lisinopriL [Zestril] 5 mg PO QAM Atorvastatin [Lipitor] 80 mg PO HS Amitriptyline HCl 50 mg PO HS Sennosides/Docusate Sodium [Senna-S 8.6-50 mg Tablet] 1 each PO DAILY PRN #30 tablet PRN Reason: Constipation Discharge Medication List Isosorbide Mononitrate [Imdur] 30 mg PO QAM 11/22/13 [History] Aspirin EC [Ecotrin] 325 mg PO DAILY 07/02/15 [History] Metoprolol Tartrate [Lopressor] 50 mg PO BID 01/19/17 [History] Omeprazole 20 mg PO QAM 01/19/17 [History] Citalopram Hydrobromide [CeleXA] 40 mg PO QAM 02/26/19 [History] traZODone HCL 50 mg PO HS 02/26/19 [History] Atorvastatin [Lipitor] 80 mg PO HS 04/26/21 [History] lisinopriL [Zestril] 5 mg PO QAM 04/26/21 [History] Amitriptyline HCl 50 mg PO HS 03/15/22 [History] Sennosides/Docusate Sodium [Senna-S 8.6-50 mg Tablet] 1 each PO DAILY PRN #30 tablet 03/16/22 [Rx] HYDROcodone/APAP 5-325MG [[place] 5-325] 1 tab PO Q6HR PRN #21 tab 05/06/22 [Rx] Follow up Appointment(s)/Referral(s): Killian Craig, PAC [PHYSICIAN EXHIBIT TECHNICIAN] - 10 Days Activity/Diet/Wound Care/Special Instructions: Discharge instructions: 1. Utilize knee immobilizer at all times, then he must remain fully straight 2. Toe-touch weight bearing when transferring, utilize walker or wheelchair 3. Please remove the foam dressing on 05/12/2022 4. After removal of foam dressing okay to shower directly over the incision, the leg must remain in full extension when showering 5. Ice and elevate often 6. Plan for follow-up at [facility] in 10 days for recheck Discharge Disposition: HOME SELF-CARE
--- NOTE | 2022-05-06 14:26 | P.PN ---
Subjective Progress Note Date: 05/06/22 (delayed charting seen at 0945) Patient is a 67-year-old female with COPD, rheumatoid arthritis, CVA and CAD, hypertension, and dyslipidemia who is admitted for planned left patellar fractur e repair. Patient underwent procedure on 05/03/22 without any immediate postoperative complications. Patient seen and examined at bedside. Her pain is well controlled. She has no nausea or vomting. She is hitting a hard time ambulating. Vital signs reviewed General: nontoxic, no distress, appears at stated age Cardiovascular: S1S2 reg, grade 4 murmur, positive posterior tibial pulse bilateral, Lungs: CTA bilateral, no rhonchi, no rales , no accessory muscle use Abdominal: soft, nontender to palpation, no guarding, no appreciable organomegaly Ext: no gross muscle atrophy, no edema, no contractures, left knee with knee immobilizer in place Neuro: CN II-XI grossly intact, no focal neuro deficits Psych: Alert, oriented, appropriate affect Assessment: 67-year-old female status post left knee patellar fracture repair with quadriceps tendon repair Acute blood loss anemia anticipated outcome of surgery. Hypertension, Accelerated Dyslipidemia Chronic: COPD without exacerbation GERD Rheumatoid arthritis Scoliosis Heart murmur Plan: -BP 162/78 this morning, but well controlled last night -- 147/76. Will continue new lisinopril dose 10 mg daily on discharge. - Home med recs addressed for discharge to SNF. New RX of Lisinopril 10 mg daily completed. Patient will continue on imdur 30 mg daily, ASa 325 mg daily, Lopressor 50 mg twcie daily, omeprazol 20 mg dialy, trazodone 50 mg at night, celexa 40 mg daily, lipitor 80 mg dialy, amitriptyline 50 mg at night. Objective - Vital Signs Vital signs: Vital Signs Temp 99.3 F 05/06/22 06:47 Pulse 97 05/06/22 06:47 Resp 17 05/06/22 06:47 BP 162/78 05/06/22 06:47 Pulse Ox 99 05/06/22 09:03 FiO2 Intake & Output 05/05/22 05/06/22 05/06/22 18:59 06:59 18:59 Intake Total 118 Output Total 150 250 Balance -32 -250 Intake: Oral 118 Output: Urine 150 250 - Labs CBC & Chem 7: 05/05/22 06:22 05/03/22 13:25
[2022-05-06 16:05] VITALS: BP 159/75; PULSE 80; RESP 15; TEMP 99.4
[2022-05-06] MEDS ORDERED: AMITRIPTYLINE HCL 50 MG TAB PO SCH (21:00)
== END 2022-05-06 16:48 | disposition home or self-care (01) ==
LOC: OR 12:57 → 4SSUR 16:59 → OR 16:59 → UNDOADMIN 16:59 → 4SSUR 18:05 → OR 05-06 16:48 → UNDODISIN 05-06 16:48
PROVIDERS: ATTEND Orthopaedic Surgery
DX: S82.002A Unspecified fracture of left patella, initial encounter for closed fracture (principal); G89.18 Other acute postprocedural pain; I10 Essential (primary) hypertension; E78.5 Hyperlipidemia, unspecified; K21.9 Gastro-esophageal reflux disease without esophagitis; Z98.890 Other specified postprocedural states; Z98.891 History of uterine scar from previous surgery; Z90.49 Acquired absence of other specified parts of digestive tract; Z95.1 Presence of aortocoronary bypass graft; Z79.82 Long term (current) use of aspirin; Z79.899 Other long term (current) drug therapy
CPT/HCPCS: 27524; 27385; 94640 ×2; 94760 ×3; 97530 ×2; 97162; 97166; 64447; 76942; 80053; 85025 ×2; 85027; C1713; J2250; J0330; J1100; J2710; J2405; J0690 ×2; J3010 ×2; J1650 ×3; J1170 ×2; J2795; J2704; J2001

== ENCOUNTER 2022-05-19 07:08 | Observation (INO) | payer MEDICARE, OTHER ==
--- NOTE | 2022-05-19 07:18 | ED ---
General Adult HPI - General Stated complaint: POST OP COMP Time Seen by Provider: 05/19/22 07:10 Source: patient, EMS, RN notes reviewed Mode of arrival: EMS Limitations: physical limitation - History of Present Illness Initial comments: This is a 67-year-old female presents emergency Department from [facility] with chief complaint of wound opening up. Patient states that she had knee surgery on her left by Dr. hull [facility] at the end of April. Patient states that she was sitting at the edge of her bed states that she went to move her knee vomited states that her knee opened up. Patient had her nixon removed 5 days ago. Patient states there is moderate discomfort. Patient denies falling directly on it. - Related Data Home Medications Medication Instructions Recorded Confirmed Isosorbide Mononitrate [Imdur] 30 mg PO QAM 11/22/13 05/03/22 Aspirin EC [Ecotrin] 325 mg PO DAILY 07/02/15 05/03/22 Metoprolol Tartrate [Lopressor] 50 mg PO BID 01/19/17 05/03/22 Omeprazole 20 mg PO QAM 01/19/17 05/03/22 Citalopram Hydrobromide [CeleXA] 40 mg PO QAM 02/26/19 05/03/22 traZODone HCL 50 mg PO HS 02/26/19 05/03/22 Atorvastatin [Lipitor] 80 mg PO HS 04/26/21 05/03/22 Amitriptyline HCl 50 mg PO HS 03/15/22 05/03/22 Previous Rx's Medication Instructions Recorded Sennosides/Docusate Sodium 1 each PO DAILY PRN #30 tablet 03/16/22 [Senna-S 8.6-50 mg Tablet] Albuterol Inhaler [Ventolin Hfa 2 puff INHALATION RT-QID PRN each 05/06/22 Inhaler] HYDROcodone/APAP 5-325MG [[place] 1 tab PO Q6HR PRN #21 tab 05/06/22 5-325] lisinopriL [Zestril] 10 mg PO DAILY tab 05/06/22 Allergies Allergy/AdvReac Type Severity Reaction Status Date / Time codeine AdvReac Nausea & Verified 05/19/22 07:16 Vomiting Review of Systems ROS Statement: Those systems with pertinent positive or pertinent negative responses have been documented in the HPI. ROS Other: All systems not noted in ROS Statement are negative. Past Medical History Past Medical History: Coronary Artery Disease (CAD), Cancer, Chest Pain / Angina, COPD, CVA/TIA, GERD/Reflux, Hyperlipidemia, Hypertension, Osteoarthritis (OA), Rheumatoid Arthritis (RA), Skin Disorder, Vascular Disorder Additional Past Medical History / Comment(s): chronic back pain., scoliosis., heart murmur, SOB w/activity, hx of gastric ulcer, cervical cancer, eczema, TIA-no residuals., frequent diarrhea., hepatitis C with tx,halmet cataracts, left knee replaced recently-not healing well per pt, lot of pain, recent cataract surg. History of Any Multi-Drug Resistant Organisms: None Reported Past Surgical History: Section, Cholecystectomy, Coronary Bypass/CABG, Heart Catheterization, Heart Catheterization With Stent, Joint Replacement, Orthopedic Surgery, Tubal Ligation Additional Past Surgical History / Comment(s): triple CABG 2008, ORIF right leg, ., heart cath with stent 2013(Mph)., heart cath no stent (2019). left knee replaced 03-15-22 Past Anesthesia/Blood Transfusion Reactions: No Reported Reaction Date of Last Stent Placement:: 2013 Smoking Status: Former smoker - Past Family History Father Family Medical History: Cancer, Dementia Additional Family Medical History / Comment(s): AT AGE 84-LUNG CANCER. Mother Family Medical History: Coronary Artery Disease (CAD) Additional Family Medical History / Comment(s): AT AGE 73. Brother(s) Family Medical History: Cancer General Exam General appearance: alert, in no apparent distress Head exam: Present: atraumatic, normocephalic, normal inspection Eye exam: Present: normal appearance, PERRL, EOMI. Absent: scleral icterus, conjunctival injection, periorbital swelling Respiratory exam: Present: normal lung sounds bilaterally. Absent: respiratory distress, wheezes, rales, rhonchi, stridor Cardiovascular Exam: Present: regular rate, normal rhythm, normal heart sounds. Absent: systolic murmur, diastolic murmur, rubs, gallop, clicks Extremities exam: Present: other (Left knee surgical wound dehiscence noted, small amount of active bleeding neurovascular intact) Course Vital Signs 05/19/22 07:10 Temperature 97.7 F Pulse Rate 70 Respiratory 18 Rate Blood Pressure 178/69 O2 Sat by Pulse 97 Oximetry Medical Decision Making - Medical Decision Making Was pt. sent in by a medical professional or institution ([facility]ADF[facility] Arguello, [employer], urgent care, hospital, or fdc...) When possible be specific @ -No Did you speak to anyone other than the patient for history (EMS, parent, family, police, friend...)? What history was obtained from this source @ -No Did you review nursing and triage notes (agree or disagree)? Why? @ -I reviewed and agree with nursing and triage notes Were old charts reviewed (outside hosp., previous admission, EMS record, old EKG, old radiological studies, urgent care reports/EKG's, fdc records)? Report findings @ -No old charts were reviewed Differential Diagnosis (chest pain, altered mental status, abdominal pain women, abdominal pain men, vaginal bleeding, weakness, fever, dyspnea, syncope, headache, dizziness, GI bleed, back pain, seizure, CVA, palpatations, mental health, musculoskeletal)? @ -Surgical wound dehiscence] EKG interpreted by me (3pts min.). @ -As above X-rays interpreted by me (1pt min.). @ -None done CT interpreted by me (1pt min.). @ -None done U/S interpreted by me (1pt. min.). @ -None done What testing was considered but not performed or refused? (CT, X-rays, U/S, labs)? Why? @ -None What meds were considered but not given or refused? Why? @ -None Did you discuss the management of the patient with other professionals (professionals i.e. [facility]ADF[facility] Arguello, [employer], lab, RT, psych nurse, rn social work, mailer, teacher, neighborhood conservation officer, manager of case management)? Give summary @ -[place] with [facility] recommended patient to remain nothing by mouth, admitted for surgical closure Was smoking cessation discussed for >3mins.? @ -No Was critical care preformed (if so, how long)? @ -No Were there social determinants of health that impacted care today? How? (Homelessness, low income, unemployed, alcoholism, drug addiction, transportation, low edu. Level, literacy, decrease access to med. care, prison, rehab)? @ -No Was there de-escalation of care discussed even if they declined (Discuss DNR or withdrawal of care, Hospice)? DNR status @ -No What co-morbidities impacted this encounter? (DM, HTN, Smoking, COPD, CAD, Cancer, CVA, ARF, Chemo, Hep., AIDS, mental health diagnosis, sleep apnea, morbid obesity)? @ -None Was patient admitted / discharged? Hospital course, mention meds given and route, prescriptions, significant lab abnormalities, going to OR and other pertinent info. @ -Admitted patient will be admitted to Dr. Edge for surgical closure Undiagnosed new problem with uncertain prognosis? @ -No Drug Therapy requiring intensive monitoring for toxicity (Heparin, Nitro, Insulin, Cardizem)? @ -No Were any procedures done? @ -No Diagnosis/symptom? @ -Surgical wound dehiscence knee Acute, or Chronic, or Acute on Chronic? @ -Acute Uncomplicated (without systemic symptoms) or Complicated (systemic symptoms)? @ -Uncomplicated Side effects of treatment? @ -No Exacerbation, Progression, or Severe Exacerbation? @ -No Poses a threat to life or bodily function? How? (Chest pain, [place], [place], pneumonia, PE, COPD, DKA, ARF, appy, cholecystitis, CVA, Diverticulitis, Homicidal, Suicidal, threat to staff... and all critical care pts) @ -No Disposition Clinical Impression: Surgical wound dehiscence Disposition: ADMITTED IP TO THIS HOSP Referrals: Olivier Trinidad DO [Primary Care Provider] - 1-2 days Time of Disposition: 07:23
[2022-05-19] MEDS ORDERED: ONDANSETRON 4 MG/2 ML VIAL IVP PRN ×2 (07:23→11:54)
[2022-05-19] MEDS ORDERED: NALOXONE 0.4 MG/ML 1 ML VIAL IV PRN ×2 (07:23→11:54)
[2022-05-19] MEDS: HYDROmorphone 0.5 MG/0.5 ML SYRINGE IVP PRN ×2 (07:32→22:52)
[2022-05-19 08:03] LABS: Basophils % (A) 0 %; Eosinophils # (A) 0.1 k/uL (0-0.7); Eosinophils % (A) 2 %; HCT 31.7 % (34.0-46.0); HGB 10.3 gm/dL (11.4-16.0); Hypochromasia Slight; Lymphocytes # (A) 1.2 k/uL (1.0-4.8); Lymphocytes % (A) 27 %; MCH 28.7 pg (25.0-35.0); MCHC 32.5 g/dL (31.0-37.0); MCV 88.2 fL (80.0-100.0); Mean Platelet Volume 7.2; Monocytes # (A) 0.3 k/uL (0-1.0); Monocytes % (A) 8 %; Neutrophils # (A) 2.6 k/uL (1.3-7.7); Neutrophils % (A) 60 %; Platelet Count 252 k/uL (150-450); Poikilocytosis Slight; RDW 15.2 % (11.5-15.5); WBC 4.3 k/uL (3.8-10.6)
[2022-05-19 08:15] LABS: African American GFR (CKD) >90 (>60 ml/min/1.73 sqM); Anion Gap 5 mmol/L; Blood Urea Nitrogen 14 mg/dL (7-17); Calcium 8.6 mg/dL (8.4-10.2); Carbon Dioxide 27 mmol/L (22-30); Chloride 106 mmol/L (98-107); Glucose 99 mg/dL (74-99); Non-African American GFR(CKD) >90 (>60 ml/min/1.73 sqM); Sodium 138 mmol/L (137-145)
[2022-05-19 08:25] LABS: Potassium 4.5 mmol/L (3.5-5.1)
[2022-05-19] MEDS ORDERED: LACTATED RINGERS 1,000 ML IV ONE ×2 (09:53→12:45)
--- NOTE | 2022-05-19 10:05 | P.HPOR ---
History of Present Illness H&P Date: 05/19/22 Chief Complaint: Left knee wound dehiscence Patient is a 67-year-old female who presented to [facility] earlier this morning with complaints of issues with her left knee incision. Patient had originally undergone a total knee replacement in March [address] Edge. Patient did fall after her surgery which resulted in the extensor mechanism, she then underwent a second surgery in late April 2022. Patient was actually evaluated in the outpatient setting by myself last week, nixon were removed from the incision, she's been utilizing a knee immobilizer. She is currently in subacute rehab. Patient is a poor historian when trying to explain exactly what happened this morning. She states that she was shuffling in bed and her foot got caught on the sheets and she fell forward. She states that she was in the knee immobilizer. She had immediate pain and obvious deformity to the extremity. His were placed as subacute rehab and she was brought to [facility] for further evaluation. I was contacted by the emergency room staff this morning, patient was directly admitted to the hospital with plan for add-on urgent surgery to examine and explore the left knee. Patient was also made nothing by mouth upon arrival. Patient was evaluated today in the preoperative area. The knee is currently bandaged, and has been reinforced with no drainage near the proximal end. The knee is in about 80 of flexion currently. She has a very difficult time moving the knee without causing pain. She has no other orthopedic complaints at this time. Review of Systems Constitutional: Reports as per HPI Past Medical History Past Medical History: Coronary Artery Disease (CAD), Cancer, Chest Pain / Angina, COPD, CVA/TIA, GERD/Reflux, Hyperlipidemia, Hypertension, Osteoarthritis (OA), Rheumatoid Arthritis (RA), Skin Disorder, Vascular Disorder Additional Past Medical History / Comment(s): chronic back pain., scoliosis., heart murmur, SOB w/activity, hx of gastric ulcer, cervical cancer, eczema, TIA-no residuals., frequent diarrhea., hepatitis C with tx,hamlet cataracts, left knee replaced recently-not healing well per pt, lot of pain, recent cataract surg. History of Any Multi-Drug Resistant Organisms: None Reported Past Surgical History: Section, Cholecystectomy, Coronary Bypass/CABG, Heart Catheterization, Heart Catheterization With Stent, Joint Replacement, Orthopedic Surgery, Tubal Ligation Additional Past Surgical History / Comment(s): triple CABG 2008, ORIF right leg, ., heart cath with stent 2013(Mph)., heart cath no stent (2019). left knee replaced 03-15-22 Past Anesthesia/Blood Transfusion Reactions: No Reported Reaction Date of Last Stent Placement:: 2013 Smoking Status: Former smoker - Past Family History Father Family Medical History: Cancer, Dementia Additional Family Medical History / Comment(s): AT AGE 84-LUNG CANCER. Mother Family Medical History: Coronary Artery Disease (CAD) Additional Family Medical History / Comment(s): AT AGE 73. Brother(s) Family Medical History: Cancer Medications and Allergies Home Medications Medication Instructions Recorded Confirmed Type Isosorbide Mononitrate [Imdur] 30 mg PO DAILY 11/22/13 05/19/22 History Aspirin EC [Ecotrin] 325 mg PO DAILY 07/02/15 05/19/22 History Metoprolol Tartrate [Lopressor] 50 mg PO BID 01/19/17 05/19/22 History Omeprazole 20 mg PO DAILY 01/19/17 05/19/22 History Citalopram Hydrobromide [CeleXA] 40 mg PO DAILY 02/26/19 05/19/22 History traZODone HCL 50 mg PO HS 02/26/19 05/19/22 History Atorvastatin [Lipitor] 80 mg PO HS 04/26/21 05/19/22 History Amitriptyline HCl 50 mg PO HS 03/15/22 05/19/22 History lisinopriL [Zestril] 10 mg PO DAILY tab 05/06/22 05/19/22 Rx Acetaminophen [Tylenol Arthritis] 650 mg PO Q6H PRN 05/19/22 05/19/22 History Albuterol Inhaler [Ventolin Hfa 2 puff INHALATION RT-Q6H PRN 05/19/22 05/19/22 History Inhaler] Cholecalciferol [Vitamin D3 (25 25 mcg PO DAILY 05/19/22 05/19/22 History Mcg = 1000 Iu)] Ferrous Sulfate [Feosol] 325 mg PO DAILY 05/19/22 05/19/22 History HYDROcodone/APAP 5-325MG [[place] 1 tab PO Q6H 05/19/22 05/19/22 History 5-325] Sennosides [Senokot] 8.6 mg PO DAILY PRN 05/19/22 05/19/22 History Allergies Allergy/AdvReac Type Severity Reaction Status Date / Time codeine AdvReac Nausea & Verified 05/19/22 09:59 Vomiting Physical Examination Left lower extremity: Dressing is in place surrounding the knee, there is saturation noted at the proximal end. The knee is in about 80 of flexion currently. Has no other significant deformity present throughout the extremity. She is able to wiggle her toes with no difficulty, plantar flexion, dorsiflexion are intact. Calf s oft, no tenderness with palpation. Her sensation to light touch is intact about the extremity. Logroll maneuver reproduces no groin pain Results - Labs Labs: Abnormal Lab Results - Last 24 Hours (Table) 05/19/22 Range/Units 07:37 RBC 3.60 L (3.80-5.40) m/uL Hgb 10.3 L (11.4-16.0) gm/dL Hct 31.7 L (34.0-46.0) % H & H 05/19/22 Range/Units 07:37 Hgb 10.3 L (11.4-16.0) gm/dL Hct 31.7 L (34.0-46.0) % Result Diagrams: 05/19/22 07:37 05/19/22 07:37 Assessment and Plan Assessment: Left knee wound dehiscence Left knee extensor mechanism rupture, this to include medial retinaculum, late ral retinaculum, quadriceps tendon, patellar tendon Recent fall History of previous left total knee arthroplasty and extensor mechanism injury Multiple medical comorbidities Plan: Was able to discuss the case with Dr. Edge early this morning. Patient was added on for an urgent surgery on 05/19/2022. She will continue to be nothing by mouth diet, this was relayed to the emergency room staff. Patient will then be admitted to the hospital, internal medicine was placed on consult Pain control, combination of oral and IV medications as needed DVT prophylaxis, likely begin subcu medication after surgery Long-leg cast be applied at surgery, nonweightbearing left lower extremity Further recommendations to follow
[2022-05-19] MEDS ORDERED: fentaNYL (PF) 50 MCG/1 ML VIAL IVP ONE ×3 (10:12→12:42)
[2022-05-19] MEDS ORDERED: DEXAMETHASONE SOD PHOSPHATE 4 MG/ML 1 ML VIAL IVP ONE (10:13)
[2022-05-19] MEDS ORDERED: LABETALOL 5 MG/ML VIAL MDV ONE (10:15)
[2022-05-19] MEDS ORDERED: PROPOFOL 10 MG/ML 20 ML VIAL IV ONE (10:15)
[2022-05-19] MEDS ORDERED: ROCURONIUM 10 MG/ML (5 ML VIAL) IV ONE (10:15)
[2022-05-19] MEDS ORDERED: fentaNYL (PF) 50 MCG/ML 2 ML AMP ONE (10:15)
[2022-05-19] MEDS ORDERED: ePHEDrine 50 MG/ML 1 ML VIAL ONE (10:15)
[2022-05-19] MEDS ORDERED: LIDOCAINE 2% INJ 20 MG/ML (2 ML VIAL) ONE (10:15)
[2022-05-19] MEDS ORDERED: SUCCINYLCHOLINE CHLORIDE 200 MG/10 ML VIAL IV ONE (10:15)
[2022-05-19] MEDS ORDERED: HYDROmorphone (PF) 1 MG/ML ONE (10:15)
[2022-05-19] MEDS ORDERED: VANCOMYCIN 1,000 MG VIAL MISCELLANE ONE (10:52)
[2022-05-19] MEDS ORDERED: HYDROmorphone 0.5 MG/0.5 ML SYRINGE IVP PRN ×2 (11:54)
[2022-05-19] MEDS ORDERED: HYDROcodone/APAP 5-325MG 1 EACH TAB PO PRN (11:54)
--- NOTE | 2022-05-19 11:54 | P.OP ---
Date of Procedure: 05/19/22 Preoperative Diagnosis: Left knee wound dehiscence with history of previous total knee arthroplasty and recent repair of a complex extensor mechanism tear Postoperative Diagnosis: Left knee wound dehiscence with complete quadriceps tendon tear Procedure(s) Performed: Left knee open quadriceps tendon repair Anesthesia: SABRINA Surgeon: Ar Edge Nurse Practitioner Per Diem #1: Killian Craig Estimated Blood Loss (ml): 15 Pathology: none sent Condition: stable Disposition: PACU Indications for Procedure: 67-year-old patient seen with left knee wound dehiscence. She has a history of previous total knee arthroplasty. She did sustain a complex central mechanism tear a few weeks ago with subsequent repair. She was in a knee immobilizer and apparently reinjured her knee with a obvious wound dehiscence. I recommended exploration of the wound with repair. Patient was agreeable and consent was obtained. Operative Findings: See description of procedure Description of Procedure: Patient was taken to the operative suite. She received preoperative IV antibiotics. She underwent a general anesthetic by the department of anesthesia. A well-padded tourniquet was placed along the proximal left thigh. The left lower extremity was prepped and draped in the normal sterile orthopedic fashion. The extremity was elevated and the tourniquet was insufflated to 300. There was complete dehiscence of the anterior wound noted. Upon deeper exploration there was complete re-tear of the entire extensor quadriceps mechanism. The medial retinaculum was stable. The lateral retinaculum had a defect and. We irrigated the wound out copiously with 2000 mL of antibiotic irrigant. The components appeared stable with no evidence of loosening or fracture. We now irrigated the wound out with the remaining 1000 mL of antibiotic irrigant. I irrigated the joint with irresept solution. I then placed 1 g of vancomycin within the wound. I then began repairing the complex recurrent quadriceps tendon tear utilizing #2 Ethibond suture. We had to keep the leg in full extension for this repair. I used multiple horizontal mattress sutures along with multiple simple simple interrupted sutures to perform this re pair. The repair appeared stable. I flexed the knee to about 30 and it was stable. The subcutaneous soft tissues were repaired with 2-0 Vicryl. The skin was repaired with skin nixon. We applied sterile dressings to the wound followed by loose web roll. The tourniquet was now released and immediate capillary refill the entire extremity noted. We then placed the patient into a long leg cast with the knee near full extension and neutral dorsiflexion of the ankle. I then cut a window anteriorly so the incision could be evaluated. I placed an Alejandro bandage around the windowed area of the cast. The patient was awakened, transferred to a bed and recovery stable condition. Prognosis is significant guarded given her recurrent injuries to the extensor mechanism.
[2022-05-19] MEDS ORDERED: HYDROmorphone 0.5 MG/0.5 ML SYRINGE IVP ONE ×3 (11:58→12:20)
[2022-05-19] MEDS ORDERED: hydrALAZINE HCL 20 MG/ML 1 ML VIAL IVP ONE (13:28)
[2022-05-19] MEDS ORDERED: ALBUTEROL NEBULIZED 2.5 MG/3 ML INHALATION ONE (13:57)
[2022-05-19] MEDS: SODIUM CHLORIDE 0.9% 1,000 ML IV SCH ×2 (14:48→22:51)
--- NOTE | 2022-05-19 17:49 | P.CONS ---
History of Present Illness - Reason for Consult Consult date: 05/19/22 - History of Present Illness The patient is a 66-year-old female with a PMH of COPD, rheumatoid arthritis, history of CVA and CAD, hypertension and hyperlipidemia who was admitted to the hospital for elective surgery. She underwent left knee open quadriceps tendon repair for left knee wound dehiscence. [facility] has been consulted for medical management of this patient. Patient was seen and examined post operatively. She reports a pain of 7 out of 10 in her left knee. She has no other complaints. Review of systems: Pertinent positives and negatives as discussed in HPI, a complete review of systems was performed and all other systems are negative. Physical examination: General: non toxic, no distress, appears at stated age, normal weight Derm: no unusual rashes/lesions, warm Head: atraumatic, normocephalic, symmetric Eyes: EOMI, no lid lag, anicteric sclera ENT: Nose and ears atraumatic Neck: No cervical lymphadenopathy, trachea midline, supple Mouth: no lip lesion, mucus membranes moist Cardiovascular: Holosystolic murmur appreciated, no edema Lungs: CTA bilateral, no rhonchi, no rales, no accessory muscle use Abdominal: soft, nontender to palpation, no guarding Ext: Left knee brace in place Neuro: no gross focal neuro deficits Psych: Alert, oriented, appropriate affect #Normocytic anemia #history of TIA/CAD #Hypertension #Dyslipidemia #Rheumatoid arthritis #GERD Based on my assessment of this patient, this patient meets a moderate complexity level of care. I have reviewed the following staffing consultant notes: Orthopedic surgery note 05/19, left knee open quadriceps tendon repair. I have reviewed the results of the following tests: CBC shows hemoglobin of 10.3. I have ordered the following tests: CBC ordered for tomorrow morning. I have discussed the care of this patient with the following independent historian: None. I have independently interpreted the following test below: None. I have discussed the management of this patient with the following physician: None. This patient has a moderate risk of morbidity due to the following reasons: Patient has a chronic diagnosis of history of TIA/CAD, Hypertension, Dyslipidemia, Rheumatoid arthritis, GERD. Restart aspirin 325 mg by mouth daily along with Lipitor 80 mg by mouth at bedtime. Most recently. 142/80. Restart Imdur 30 mg by mouth daily, lisinopril 10 mg by mouth daily and Metoprolol 50 mg by mouth twice a day. Restart Prilosec 20 mg by mouth daily. Patient is status post left knee open quadriceps tendon repair POD 0. Patient names her son decision maker if she can't make decisions for herself. Patient would like to be FULL CODE. Lovenox SQ for DVT prophylaxis. Past Medical History Past Medical History: Coronary Artery Disease (CAD), Cancer, Chest Pain / Angina, COPD, CVA/TIA, GERD/Reflux, Hyperlipidemia, Hypertension, Osteoarthritis (OA), Rheumatoid Arthritis (RA), Skin Disorder, Vascular Disorder Additional Past Medical History / Comment(s): chronic back pain., scoliosis., heart murmur, SOB w/activity, hx of gastric ulcer, cervical cancer, eczema, TIA-no residuals., frequent diarrhea., hepatitis C with tx,hamlet cataracts, left knee replaced recently-not healing well per pt, lot of pain, recent cataract s urg. History of Any Multi-Drug Resistant Organisms: None Reported Past Surgical History: Section, Cholecystectomy, Coronary Bypass/CABG, Heart Catheterization, Heart Catheterization With Stent, Joint Replacement, Orthopedic Surgery, Tubal Ligation Additional Past Surgical History / Comment(s): triple CABG 2008, ORIF right leg, ., heart cath with stent 2013(Mph)., heart cath no stent (2019). left knee replaced 03-15-22 Past Anesthesia/Blood Transfusion Reactions: No Reported Reaction Date of Last Stent Placement:: 2013 Past Psychological History: Anxiety, Depression Smoking Status: Former smoker Past Alcohol Use History: None Reported Additional Past Alcohol Use History / Comment(s): started smoking age 18, past hx of 1ppd Past Drug Use History: None Reported - Past Family History Father Family Medical History: Cancer, Dementia Additional Family Medical History / Comment(s): AT AGE 84-LUNG CANCER. Mother Family Medical History: Coronary Artery Disease (CAD) Additional Family Medical History / Comment(s): AT AGE 73. Brother(s) Family Medical History: Cancer Medications and Allergies Home Medications Medication Instructions Recorded Confirmed Type Isosorbide Mononitrate [Imdur] 30 mg PO DAILY 11/22/13 05/19/22 History Aspirin EC [Ecotrin] 325 mg PO DAILY 07/02/15 05/19/22 History Metoprolol Tartrate [Lopressor] 50 mg PO BID 01/19/17 05/19/22 History Omeprazole 20 mg PO DAILY 01/19/17 05/19/22 History Citalopram Hydrobromide [CeleXA] 40 mg PO DAILY 02/26/19 05/19/22 History traZODone HCL 50 mg PO HS 02/26/19 05/19/22 History Atorvastatin [Lipitor] 80 mg PO HS 04/26/21 05/19/22 History Amitriptyline HCl 50 mg PO HS 03/15/22 05/19/22 History lisinopriL [Zestril] 10 mg PO DAILY tab 05/06/22 05/19/22 Rx Acetaminophen [Tylenol Arthritis] 650 mg PO Q6H PRN 05/19/22 05/19/22 History Albuterol Inhaler [Ventolin Hfa 2 puff INHALATION RT-Q6H PRN 05/19/22 05/19/22 History Inhaler] Cholecalciferol [Vitamin D3 (25 25 mcg PO DAILY 05/19/22 05/19/22 History Mcg = 1000 Iu)] Ferrous Sulfate [Feosol] 325 mg PO DAILY 05/19/22 05/19/22 History HYDROcodone/APAP 5-325MG [[place] 1 tab PO Q6H 05/19/22 05/19/22 History 5-325] Sennosides [Senokot] 8.6 mg PO DAILY PRN 05/19/22 05/19/22 History Allergies Allergy/AdvReac Type Severity Reaction Status Date / Time codeine AdvReac Nausea & Verified 05/19/22 09:59 Vomiting Physical Exam Vitals: Vital Signs Temp Pulse Pulse Pulse Resp BP BP 05/19/22 14:20 97.7 F 84 16 142/80 05/19/22 13:47 89 20 174/67 05/19/22 13:40 94 20 185/88 05/19/22 13:25 87 20 201/91 05/19/22 12:52 184/81 05/19/22 12:49 87 20 198/82 05/19/22 12:34 90 15 200/84 05/19/22 12:19 90 24 210/88 05/19/22 12:04 89 18 183/97 05/19/22 11:48 97 F L 75 14 156/88 05/19/22 09:55 97.9 F 73 16 151/67 05/19/22 09:00 68 18 125/55 05/19/22 08:30 68 18 154/76 05/19/22 08:00 72 18 169/69 05/19/22 07:30 68 18 178/69 05/19/22 07:10 97.7 F 70 18 178/69 Pulse Ox 05/19/22 14:20 96 05/19/22 13:47 98 05/19/22 13:40 97 05/19/22 13:25 98 05/19/22 12:52 05/19/22 12:49 96 05/19/22 12:34 97 05/19/22 12:19 95 05/19/22 12:04 96 05/19/22 11:48 98 05/19/22 09:55 93 L 05/19/22 09:00 97 05/19/22 08:30 96 05/19/22 08:00 96 05/19/22 07:30 96 05/19/22 07:10 97 Intake and Output 05/19/22 05/19/22 05/19/22 06:59 14:59 22:59 Intake Total 1750 Output Total 15 Balance 1735 Intake: IV 1750 Output: Estimated Blood Loss 15 Other: Weight 56.699 kg Results CBC & Chem 7: 05/19/22 07:37 05/19/22 07:37 Labs: Abnormal Lab Results - Last 24 Hours (Table) 05/19/22 Range/Units 07:37 RBC 3.60 L (3.80-5.40) m/uL Hgb 10.3 L (11.4-16.0) gm/dL Hct 31.7 L (34.0-46.0) %
[2022-05-19] MEDS: HYDROcodone/APAP 7.5-325MG 1 EACH TAB PO PRN (19:02)
[2022-05-19] MEDS: HYDROmorphone 1 MG/ML 1 ML SYRINGE IVP PRN (19:53)
[2022-05-19] MEDS: ATORVASTATIN 80 MG TAB PO SCH (21:13)
[2022-05-19] MEDS: METOPROLOL TARTRATE 50 MG TAB PO SCH (21:13)
[2022-05-19] MEDS: AMITRIPTYLINE HCL 50 MG TAB PO SCH (21:13)
[2022-05-19] MEDS: traZODone HCL 50 MG TAB PO SCH (21:13)
[2022-05-20] MEDS: HYDROcodone/APAP 7.5-325MG 1 EACH TAB PO PRN ×4 (02:18→20:57)
[2022-05-20] MEDS: HYDROmorphone 1 MG/ML 1 ML SYRINGE IVP PRN ×3 (06:16→23:24)
[2022-05-20] MEDS: ENOXAPARIN 40 MG/0.4 ML SYRINGE SQ SCH (08:28)
[2022-05-20] MEDS: PANTOPRAZOLE 40 MG TABLET PO SCH (08:28)
[2022-05-20] MEDS: METOPROLOL TARTRATE 50 MG TAB PO SCH ×2 (08:28→20:57)
[2022-05-20] MEDS: CHOLECALCIFEROL 25 MCG (1000 IU) TABLET PO SCH (08:29)
[2022-05-20] MEDS: ISOSORBIDE MONONITRATE ER 30 MG TAB.ER.24H PO SCH (08:29)
[2022-05-20] MEDS: CITALOPRAM HYDROBROMIDE 20 MG TAB PO SCH (08:30)
[2022-05-20] MEDS: ASPIRIN 325 MG TAB PO SCH (08:30)
[2022-05-20] MEDS: lisinopriL 10 MG TAB PO SCH (08:31)
[2022-05-20 09:35] LABS: Basophils # (A) 0.04 X 10*3/uL (0.00-0.10); Basophils % (A) 0.6 %; Eosinophils # (A) 0.03 X 10*3/uL (0.04-0.35); Eosinophils % (A) 0.4 %; HCT 29.4 % (37.2-46.3); HGB 8.8 g/dL (12.0-15.0); Immature Grans, Automated 0.4 %; Lymphocytes # (A) 1.55 X 10*3/uL (0.90-5.00); Lymphocytes % (A) 22.1 %; MCH 27.6 pg (27.0-32.0); MCHC 29.9 g/dL (32.0-37.0); MCV 92.2 fL (80.0-97.0); Mean Platelet Volume 8.5 fL (9.5-12.2); Monocytes # (A) 0.77 X 10*3/uL (0.20-1.00); NRBC Per 100 WBC 0 /100 WBCS (0.0-0.0); Neutrophils # (A) 4.59 X 10*3/uL (1.80-7.70); Neutrophils % (A) 65.5 %; Platelet Count 274 X 10*3/uL (140-440); RBC 3.19 X 10*6/uL (4.10-5.20); RDW 15.1 % (11.5-14.5); WBC 7.01 X 10*3/uL (4.50-10.00)
--- NOTE | 2022-05-20 11:26 | P.PN ---
Subjective Progress Note Date: 05/20/22 Principal diagnosis: Status post open left knee quadriceps tendon repair, secondary wound closure Patient evaluated today at bedside, she is resting in her hospital chair, family is present at bedside. Patient states the pain is controlled currently. She was able to pivot with the help of physical therapy to the chair. Fiberglas cast is in good position and condition. She currently denies any headaches, lightheadedness, chest pain or shortness of breath. Objective - Vital Signs Vital signs: Vital Signs Temp 98.4 F 05/20/22 02:15 Pulse 83 05/20/22 02:15 Resp 17 05/20/22 02:15 BP 125/61 05/20/22 02:15 Pulse Ox 94 L 05/20/22 02:15 FiO2 Intake & Output 05/19/22 05/20/22 05/20/22 18:59 06:59 18:59 Intake Total 1750 Output Total 15 Balance 1735 Weight 56.699 kg Intake: IV 1750 Output: Estimated Blood Loss 15 Other: Voiding Method Bedpan Diaper # Voids 1 1 - Exam Left lower extremity: Fiberglas cast is in good position and condition with Alejandro bandage fixation. Patient is able to wiggle her toes. She has good color in the distal extremity. Her sensation to light touch both proximal distal to the cast are intact. - Labs CBC & Chem 7: 05/20/22 05:22 05/19/22 07:37 Labs: Abnormal Lab Results - Last 24 Hours (Table) 05/20/22 Range/Units 05:22 RBC 3.19 L (4.10-5.20) X 10*6/uL Hgb 8.8 L (12.0-15.0) g/dL Hct 29.4 L (37.2-46.3) % MCHC 29.9 L (32.0-37.0) g/dL RDW 15.1 H (11.5-14.5) % MPV 8.5 L (9.5-12.2) fL Eosinophils # 0.03 L (0.04-0.35) X 10*3/uL Assessment and Plan Assessment: Postoperative day #1 status post left knee open quadriceps repair, secondary wound closure Plan: Pain control, continue use of oral medication as needed DVT prophylaxis, continue subcu medication during hospital stay, we'll likely transition aspirin after discharge Nonweightbearing left lower extremity, okay to rest to an ingrown 1 pitting Keep cast clean and dry, keep covered while showering Medical recommendations Discharge planning: Patient is stable for discharge back to subacute rehab, discuss this with case management. Will await authorization for this Time with Patient: Less than 30
--- NOTE | 2022-05-20 16:08 | P.PN ---
Subjective Progress Note Date: 05/20/22 The patient is a 66-year-old female with a PMH of COPD, rheumatoid arthritis, history of CVA and CAD, hypertension and hyperlipidemia who was admitted to the hospital for elective surgery. She underwent left knee open quadriceps tendon repair for left knee wound dehiscence. [facility] has been consulted for medical management of this patient. She reports well controlled pain in her left knee. She has no other complaints. General: non toxic, no distress, appears at stated age, normal weight Derm: no unusual rashes/lesions, warm Head: atraumatic, normocephalic, symmetric Eyes: EOMI, no lid lag, anicteric sclera ENT: Nose and ears atraumatic Neck: No cervical lymphadenopathy, trachea midline, supple Mouth: no lip lesion, mucus membranes moist Cardiovascular: Holosystolic murmur appreciated, no edema Lungs: CTA bilateral, no rhonchi, no rales, no accessory muscle use Abdominal: soft, nontender to palpation, no guarding Ext: Left knee brace in place Neuro: no gross focal neuro deficits Psych: Alert, oriented, appropriate affect #Acute blood loss anemia #history of TIA/CAD #Hypertension #Dyslipidemia #Rheumatoid arthritis #GERD Based on my assessment of this patient, this patient meets a moderate complexity level of care. I have reviewed the following food consultant notes: Orthopedic surgery note 05/20, patient is stable for discharge back to subacute rehab. I have reviewed the results of the following tests: CBC shows hemoglobin of 8.8 which is decreased from 10.3 on admission. I have ordered the following tests: CBC ordered for tomorrow morning. I have discussed the care of this patient with the following independent historian: None. I have independently interpreted the following test below: None. I have discussed the management of this patient with the following physician: None. This patient has a moderate risk of morbidity due to the following reasons: Patient has a chronic diagnosis of history of TIA/CAD, Hypertension, Dyslipidemia, Rheumatoid arthritis, GERD. Restart aspirin 325 mg by mouth daily along with Lipitor 80 mg by mouth at bedtime. Most recently. . Restart Imdur 30 mg by mouth daily, lisinopril 10 mg by mouth daily and Metoprolol 50 mg by mouth twice a day. Restart Prilosec 20 mg by mouth daily. Patient is status post left knee open quadriceps tendon repair POD 1. Patient names her son decision maker if she can't make decisions for herself. Patient would like to be FULL CODE. Lovenox SQ for DVT prophylaxis. Objective - Vital Signs Vital signs: Vital Signs Temp 98.6 F 05/20/22 13:40 Pulse 69 05/20/22 13:40 Resp 18 05/20/22 13:40 BP 101/50 05/20/22 14:45 Pulse Ox 95 05/20/22 13:40 FiO2 Intake & Output 05/19/22 05/20/22 05/20/22 18:59 06:59 18:59 Intake Total 1750 Output Total 15 Balance 1735 Weight 56.699 kg Intake: IV 1750 Output: Estimated Blood Loss 15 Other: Voiding Method Bedpan Diaper # Voids 1 1 - Labs CBC & Chem 7: 05/20/22 05:22 05/19/22 07:37 Labs: Abnormal Lab Results - Last 24 Hours (Table) 05/20/22 Range/Units 05:22 RBC 3.19 L (4.10-5.20) X 10*6/uL Hgb 8.8 L (12.0-15.0) g/dL Hct 29.4 L (37.2-46.3) % MCHC 29.9 L (32.0-37.0) g/dL RDW 15.1 H (11.5-14.5) % MPV 8.5 L (9.5-12.2) fL Eosinophils # 0.03 L (0.04-0.35) X 10*3/uL
[2022-05-20] MEDS: HYDROmorphone 0.5 MG/0.5 ML SYRINGE IVP PRN ×2 (16:18→20:03)
[2022-05-20] MEDS: SODIUM CHLORIDE 0.9% 1,000 ML IV SCH (20:02)
[2022-05-20] MEDS: ATORVASTATIN 80 MG TAB PO SCH (20:57)
[2022-05-20] MEDS: AMITRIPTYLINE HCL 50 MG TAB PO SCH (20:57)
[2022-05-20] MEDS: traZODone HCL 50 MG TAB PO SCH (20:57)
[2022-05-21] MEDS: HYDROmorphone 1 MG/ML 1 ML SYRINGE IVP PRN ×2 (03:28→09:48)
[2022-05-21] MEDS: HYDROcodone/APAP 7.5-325MG 1 EACH TAB PO PRN ×3 (06:10→18:32)
[2022-05-21] MEDS: CITALOPRAM HYDROBROMIDE 20 MG TAB PO SCH (09:42)
[2022-05-21] MEDS: lisinopriL 10 MG TAB PO SCH (09:42)
[2022-05-21] MEDS: ASPIRIN 325 MG TAB PO SCH (09:43)
[2022-05-21] MEDS: METOPROLOL TARTRATE 50 MG TAB PO SCH ×2 (09:44→19:57)
[2022-05-21] MEDS: PANTOPRAZOLE 40 MG TABLET PO SCH (09:44)
[2022-05-21] MEDS: CHOLECALCIFEROL 25 MCG (1000 IU) TABLET PO SCH (09:44)
[2022-05-21] MEDS: ENOXAPARIN 40 MG/0.4 ML SYRINGE SQ SCH (09:44)
[2022-05-21] MEDS: ISOSORBIDE MONONITRATE ER 30 MG TAB.ER.24H PO SCH (09:44)
--- NOTE | 2022-05-21 13:40 | P.PN ---
Subjective Progress Note Date: 05/21/22 Principal diagnosis: Status post open left knee quadriceps tendon repair, secondary wound closure Patient evaluated today at bedside, she is resting in her hospital chair. Patient is having increasing pain today, she is requiring Dilaudid at this time. She notes discomfort in her heel over the last day or so. She currently denies any headaches, lightheadedness, chest pain or shortness of breath. Objective - Vital Signs Vital signs: Vital Signs Temp 98.1 F 05/21/22 07:05 Pulse 69 05/21/22 07:05 Resp 16 05/21/22 07:05 BP 143/72 05/21/22 07:05 Pulse Ox 94 L 05/21/22 07:05 FiO2 Intake & Output 05/20/22 05/21/22 05/21/22 18:59 06:59 18:59 Intake Total 600 Balance 600 Intake: Intake, IV Titration 600 Amount Sodium Chloride 0.9% 1, 600 000 ml @ 50 mls/hr IV . Q20H [facility] Rx#:[id number] Other: Voiding Method Bedpan # Voids 1 2 - Exam Left lower extremity: Fiberglas cast is in good position and condition with Alejandro bandage fixation. Patient is able to wiggle her toes. She has good color in the distal extremity. Her sensation to light touch both proximal distal to the cast are intact. - Labs CBC & Chem 7: 05/20/22 05:22 05/19/22 07:37 Assessment and Plan Assessment: Postoperative day #2 status post left knee open quadriceps repair, secondary wound closure Plan: Pain control, will adjust oral medication. Does try to limit allotted at this time. DVT prophylaxis, continue subcu medication during hospital stay, we'll likely transition aspirin after discharge Nonweightbearing left lower extremity Keep cast clean and dry, keep covered while showering Medical recommendations Discharge planning: We'll keep in a hospital at this time due to pain control, will reassess on 05/22/2022, hopeful discharge to rehab at that time Time with Patient: Less than 30
--- NOTE | 2022-05-21 15:41 | P.PN ---
Subjective Progress Note Date: 05/21/22 The patient is a 66-year-old female with a PMH of COPD, rheumatoid arthritis, history of CVA and CAD, hypertension and hyperlipidemia who was admitted to the hospital for elective surgery. She underwent left knee open quadriceps tendon repair for left knee wound dehiscence. [facility] has been consulted for medical management of this patient. She reports well controlled pain in her left knee. She has no other complaints. General: non toxic, no distress, appears at stated age, normal weight Derm: no unusual rashes/lesions, warm Head: atraumatic, normocephalic, symmetric Eyes: EOMI, no lid lag, anicteric sclera ENT: Nose and ears atraumatic Neck: No cervical lymphadenopathy, trachea midline, supple Mouth: no lip lesion, mucus membranes moist Cardiovascular: Holosystolic murmur appreciated, no edema Lungs: CTA bilateral, no rhonchi, no rales, no accessory muscle use Ext: Left knee brace in place Neuro: no gross focal neuro deficits Psych: Alert, oriented, appropriate affect #Acute blood loss anemia #history of TIA/CAD #Hypertension #Dyslipidemia #Rheumatoid arthritis #GERD Based on my assessment of this patient, this patient meets a moderate complexity level of care. I have reviewed the following apple solutions consultant notes: Orthopedic surgery note 05/21, keep in a hospital at this time due to pain control, will reassess on 05/22/2022, hopeful discharge to rehab at that time. I have reviewed the results of the following tests: None. I have ordered the following tests: None. I have discussed the care of this patient with the following independent historian: None. I have independently interpreted the following test below: None. I have discussed the management of this patient with the following physician: None. This patient has a moderate risk of morbidity due to the following reasons: Patient has a chronic diagnosis of history of TIA/CAD, Hypertension, Dyslipidemia, Rheumatoid arthritis, GERD. Restart aspirin 325 mg by mouth daily along with Lipitor 80 mg by mouth at bedtime. Most recently. 104/51. Restart Imdur 30 mg by mouth daily, lisinopril 10 mg by mouth daily and Metoprolol 50 mg by mouth twice a day. Restart Prilosec 20 mg by mouth daily. Patient is status post left knee open quadriceps tendon repair POD 2. Patient names her son decision maker if she can't make decisions for herself. Patient would like to be FULL CODE. Lovenox SQ for DVT prophylaxis. Objective - Vital Signs Vital signs: Vital Signs Temp 97.4 F L 05/21/22 13:59 Pulse 75 05/21/22 13:59 Resp 17 05/21/22 13:59 BP 104/51 05/21/22 13:59 Pulse Ox 98 05/21/22 13:59 FiO2 Intake & Output 05/20/22 05/21/22 05/21/22 18:59 06:59 18:59 Intake Total 600 Balance 600 Intake: Intake, IV Titration 600 Amount Sodium Chloride 0.9% 1, 600 000 ml @ 50 mls/hr IV . Q20H [facility] Rx#:[id number] Other: Voiding Method Bedpan # Voids 1 2 2 - Labs CBC & Chem 7: 05/20/22 05:22 05/19/22 07:37
[2022-05-21] MEDS: SENNOSIDES 8.6 MG TAB PO SCH (19:58)
[2022-05-21] MEDS: traZODone HCL 50 MG TAB PO SCH (19:58)
[2022-05-21] MEDS: AMITRIPTYLINE HCL 50 MG TAB PO SCH (19:58)
[2022-05-21] MEDS: ATORVASTATIN 80 MG TAB PO SCH (22:00)
[2022-05-22] MEDS: HYDROcodone/APAP 7.5-325MG 1 EACH TAB PO PRN ×2 (00:16→08:51)
[2022-05-22] MEDS: SODIUM CHLORIDE 0.9% 1,000 ML IV SCH (00:19)
[2022-05-22] MEDS: HYDROmorphone 0.5 MG/0.5 ML SYRINGE IVP PRN (03:24)
[2022-05-22 08:12] VITALS: BP 147/77; PULSE 65; RESP 16; TEMP 98.2
[2022-05-22] MEDS: CITALOPRAM HYDROBROMIDE 20 MG TAB PO SCH (08:50)
[2022-05-22] MEDS: ENOXAPARIN 40 MG/0.4 ML SYRINGE SQ SCH (08:50)
[2022-05-22] MEDS: METOPROLOL TARTRATE 50 MG TAB PO SCH (08:51)
[2022-05-22] MEDS: ASPIRIN 325 MG TAB PO SCH (08:51)
[2022-05-22] MEDS: CHOLECALCIFEROL 25 MCG (1000 IU) TABLET PO SCH (08:51)
[2022-05-22] MEDS: PANTOPRAZOLE 40 MG TABLET PO SCH (08:51)
[2022-05-22] MEDS: SENNOSIDES 8.6 MG TAB PO SCH (08:51)
[2022-05-22] MEDS: ISOSORBIDE MONONITRATE ER 30 MG TAB.ER.24H PO SCH (08:51)
[2022-05-22] MEDS: lisinopriL 10 MG TAB PO SCH (08:51)
[2022-05-22 09:52] LABS: Basophils # (A) 0.04 X 10*3/uL (0.00-0.10); Basophils % (A) 0.7 %; Eosinophils # (A) 0.16 X 10*3/uL (0.04-0.35); Eosinophils % (A) 2.9 %; HCT 28.2 % (37.2-46.3); HGB 8.4 g/dL (12.0-15.0); Immature Grans, Automated 0.6 %; Lymphocytes # (A) 1.61 X 10*3/uL (0.90-5.00); Lymphocytes % (A) 29.7 %; MCH 27.3 pg (27.0-32.0); MCHC 29.8 g/dL (32.0-37.0); MCV 91.6 fL (80.0-97.0); Mean Platelet Volume 8.9 fL (9.5-12.2); Monocytes # (A) 0.55 X 10*3/uL (0.20-1.00); Monocytes % (A) 10.1 %; NRBC Per 100 WBC 0 /100 WBCS (0.0-0.0); Neutrophils # (A) 3.04 X 10*3/uL (1.80-7.70); Platelet Count 243 X 10*3/uL (140-440); RBC 3.08 X 10*6/uL (4.10-5.20); RDW 15.1 % (11.5-14.5); WBC 5.43 X 10*3/uL (4.50-10.00)
--- NOTE | 2022-05-22 12:30 | P.PN ---
Subjective Progress Note Date: 05/22/22 Principal diagnosis: Status post open left knee quadriceps tendon repair, secondary wound closure Patient evaluated today at bedside, she is resting in her hospital chair. Patient continues to complain of heel pain, she states that the knee is feeling well. She currently denies any headaches, lightheadedness, chest pain or shortness of breath. Objective - Vital Signs Vital signs: Vital Signs Temp 98.2 F 05/22/22 07:20 Pulse 65 05/22/22 07:20 Resp 16 05/22/22 07:20 BP 147/77 05/22/22 07:20 Pulse Ox 97 05/22/22 07:20 FiO2 Intake & Output 05/21/22 05/22/22 05/22/22 18:59 06:59 18:59 Intake Total 240 Balance 240 Intake: Oral 240 Other: # Voids 1 1 - Exam Left lower extremity: Fiberglas cast is in good position and condition with Alejandro bandage fixation. Patient is able to wiggle her toes. She has good color in the distal extremity. Her sensation to light touch both proximal distal to the cast are intact. - Labs CBC & Chem 7: 05/22/22 06:01 05/19/22 07:37 Labs: Abnormal Lab Results - Last 24 Hours (Table) 05/22/22 Range/Units 06:01 RBC 3.08 L (4.10-5.20) X 10*6/uL Hgb 8.4 L (12.0-15.0) g/dL Hct 28.2 L (37.2-46.3) % MCHC 29.8 L (32.0-37.0) g/dL RDW 15.1 H (11.5-14.5) % MPV 8.9 L (9.5-12.2) fL Assessment and Plan Assessment: Postoperative day #3 status post left knee open quadriceps repair, secondary wound closure Stage I pressure ulcer left heel Plan: Pain control, continue with current medication DVT prophylaxis, continue subcu medication during hospital stay, we'll likely transition aspirin after discharge Nonweightbearing left lower extremity Keep cast clean and dry, keep covered while showering Medical recommendations Dr. Edge and myself are both able to assess the patient's heel today at bedside. The lower end of the cast was removed. Stage I pressure ulcer was noted. There is no obvious skin breakdown or open lesions. We did apply significant padding and bandaging to the foot prior to applying new casting material. Patient noted significant improvement in her symptoms after changing out and applying the additional padding casting material. Discharge planing: Plan for discharge to rehab today Time with Patient: Less than 30
--- NOTE | 2022-05-22 13:34 | P.DS ---
Providers Date of admission: 05/19/22 07:28 Expected date of discharge: 05/22/22 Attending physician: Ar Edge Consults: 05/19/22 10:05 Consult Physician Routine Consulting Provider: Louann Ochoa Consult Reason/Comments: Medical Management Do you want consulting provider notified?: Yes Primary care physician: [facility] Course: Date of admission: 05/19/2022 Date of discharge: 05/22/2022 Admission diagnosis: Left knee quadriceps tendon tear Discharge diagnosis: Status post open left quadriceps tendon repair Attending physician: Dr. Edge Surgical procedures: Left knee open quadriceps tendon repair Brief history: Patient is a 67-year-old female who initially had undergone a left total knee replacement earlier this year. Patient had fallen at home and it was determined in the outpatient setting that there was injury to the extensor mechanism. Patient was taken to surgery in early May for repair of the medial and lateral retinaculum along with the quadriceps tendon repair, polyethylene liner exchange. Patient then went to rehab, she sustained another fall which caused a dehiscence of her wound and quadriceps tendon tear. Patient was admitted immediately to the hospital and scheduled for surgical repair quadriceps tendon and secondary wound closure. Patient was then put in a long leg cast. Hospital course: Details of patient's surgery can be found in operative report. Patient tolerated the procedure well and was subsequently transported to orthopedic floor. Patient's orthopeidc and medical care was provided daily. Patient had daily laboratory tests performed for evaluation of overall blood counts. Patient had daily physical therapy to include strengthening range of motion as well as education with walker ambulation. Patient was treated with Lovenox for their postoperative DVT prophylaxis during their inpatient stay. Patient was noted to have a relatively uneventful postoperative course. Patient reported satisfactory pain control with oral pain medications by postoperative day 2. Patient showed satisfactory progress with physical therapy. Patient moved steadily through the program and had no difficulty meeting the goals by postoperative day 3. Given patient's otherwise satisfactory course and having met physical therapy goals, plan is to discharge patient rehab on postoperative day 3. Discharge condition/disposition: Patient will be discharged rehab in stable condition. Discharge medications: Instructions are given on resumption of patient's normal daily medications per primary care recommendation, in addition patient will be prescribed [place] 7.5 mg/325 mg, Senna S, MiraLAX 17g. Discharge instructions: 1. Wound care and infection precautions, [keep incision dry and covered while s howering], no lotions, creams, moisturizers. No soaking, tubs, pools, hottubs. Do not scrub over the incision. 2. Weight-bear [as tolerated] with walker / cane until follow-up. 3. Ice and elevate when necessary. Do not exceed 20 minutes per hour with ice pack. 4. Utilize compression sleeve until seen at first follow up appointment. 5. Visiting nursing care. 6. Home physical therapy [including home CPM]. 7. Pain meds and anticoagulants per prescription. 8. Pain medication has potential to cause constipation. Increase oral fluid and fiber intake. Contact primary care provider if you have not had a bowel movement within 48 hours after discharge 9. No anti-inflammatory medication until discussed at first post operative visit, this including Motrin, Aleve, Mobic, Diclofenac, [Aspirin]. 10. Follow up in office at 2 weeks postop with Bam Craig PA-C/Raj Cee 11. Follow up with your primary care doctor 7-10 days after discharge. 12. Contact [facility] with any questions, . Procedures: Open quadriceps tendon repair left knee Patient Condition at Discharge: Good Plan - Discharge Summary Discharge Rx Participant: No New Discharge Prescriptions: New Sennosides/Docusate Sodium [Senna Plus 8.6-50 mg Softgel] 1 each PO DAILY #20 capsule Aspirin 325 mg PO DAILY #30 tab polyethylene glycoL 3350 [Miralax] 17 gm PO DAILY PRN #21 packet PRN Reason: Constipation HYDROcodone/APAP 7.5-325MG [[place] 7.5] 1 each PO Q4HR PRN #28 tab PRN Reason: Pain Continue Isosorbide Mononitrate [Imdur] 30 mg PO DAILY Metoprolol Tartrate [Lopressor] 50 mg PO BID Omeprazole 20 mg PO DAILY traZODone HCL 50 mg PO HS Citalopram Hydrobromide [CeleXA] 40 mg PO DAILY Atorvastatin [Lipitor] 80 mg PO HS Amitriptyline HCl 50 mg PO HS Ferrous Sulfate [Iron (65 MG Elemental)] 325 mg PO DAILY Albuterol Inhaler [Ventolin Hfa Inhaler] 2 puff INHALATION RT-Q6H PRN PRN Reason: Shortness Of Breath Acetaminophen [Tylenol Arthritis] 650 mg PO Q6H PRN PRN Reason: Pain lisinopriL [Zestril] 10 mg PO DAILY tab Sennosides [Senokot] 8.6 mg PO DAILY PRN PRN Reason: Constipation Cholecalciferol [Vitamin D3 (25 Mcg = 1000 Iu)] 25 mcg PO DAILY Discontinued Aspirin EC [Ecotrin] 325 mg PO DAILY HYDROcodone/APAP 5-325MG [[place] 5-325] 1 tab PO Q6H Discharge Medication List Isosorbide Mononitrate [Imdur] 30 mg PO DAILY 11/22/13 [History] Metoprolol Tartrate [Lopressor] 50 mg PO BID 01/19/17 [History] Omeprazole 20 mg PO DAILY 01/19/17 [History] Citalopram Hydrobromide [CeleXA] 40 mg PO DAILY 02/26/19 [History] traZODone HCL 50 mg PO HS 02/26/19 [History] Atorvastatin [Lipitor] 80 mg PO HS 04/26/21 [History] Amitriptyline HCl 50 mg PO HS 03/15/22 [History] lisinopriL [Zestril] 10 mg PO DAILY tab 05/06/22 [Rx] Acetaminophen [Tylenol Arthritis] 650 mg PO Q6H PRN 05/19/22 [History] Albuterol Inhaler [Ventolin Hfa Inhaler] 2 puff INHALATION RT-Q6H PRN 05/19/22 [History] Cholecalciferol [Vitamin D3 (25 Mcg = 1000 Iu)] 25 mcg PO DAILY 05/19/22 [History] Ferrous Sulfate [Iron (65 MG Elemental)] 325 mg PO DAILY 05/19/22 [History] Sennosides [Senokot] 8.6 mg PO DAILY PRN 05/19/22 [History] Sennosides/Docusate Sodium [Senna Plus 8.6-50 mg Softgel] 1 each PO DAILY #20 capsule 05/21/22 [Rx] Aspirin 325 mg PO DAILY #30 tab 05/22/22 [Rx] HYDROcodone/APAP 7.5-325MG [[place] 7.5] 1 each PO Q4HR PRN #28 tab 05/22/22 [Rx] polyethylene glycoL 3350 [Miralax] 17 gm PO DAILY PRN #21 packet 05/22/22 [Rx] Follow up Appointment(s)/Referral(s): Devora Holman, [NON-STAFF] - As Needed Killian Craig, MITZY [PHYSICIAN AMUSEMENT OR RECREATION CARD CHECKER] - 2 Weeks Olivier Trinidad DO [Primary Care Provider] - 1-2 days Activity/Diet/Wound Care/Special Instructions: Orthopedic discharge instructions: 1. Nonweightbearing left lower extremity, okay to rest he'll on ground when pivoting 2. Utilize a walker/wheelchair for pivoting 3. Keep cast clean and dry, keep an Alejandro bandage in place 4. Elevate the extremity often to help swelling 5. Pain medication as needed 6. Plan for follow-up at [facility] 2 week postoperative, there are nixon present that need to be removed 7. Contact office with any questions or concerns, Discharge Disposition: TRANSFER TO SNF/ECF
== END 2022-05-22 15:23 ==
LOC: EC 07:08 → 4SSUR 07:28 → INTOOBSV 07:28 → 4SSUR 13:34 → UNDODISIN 05-22 15:23
PROVIDERS: ADMIT Orthopaedic Surgery; ATTEND Orthopaedic Surgery
DX: T81.30XA Disruption of wound, unspecified, initial encounter (principal); S76.112A Strain of left quadriceps muscle, fascia and tendon, initial encounter; I25.10 Atherosclerotic heart disease of native coronary artery without angina pectoris; L89.621 Pressure ulcer of left heel, stage 1; J44.9 Chronic obstructive pulmonary disease, unspecified; K21.9 Gastro-esophageal reflux disease without esophagitis; E78.5 Hyperlipidemia, unspecified; I10 Essential (primary) hypertension; M06.9 Rheumatoid arthritis, unspecified; F32.A Depression, unspecified; D62 Acute posthemorrhagic anemia; F41.9 Anxiety disorder, unspecified; B19.20 Unspecified viral hepatitis C without hepatic coma; Z98.42 Cataract extraction status, left eye; Z79.82 Long term (current) use of aspirin; Z79.899 Other long term (current) drug therapy; Z88.5 Allergy status to narcotic agent; Z98.41 Cataract extraction status, right eye; Z85.41 Personal history of malignant neoplasm of cervix uteri; Z86.73 Personal history of transient ischemic attack (TIA), and cerebral infarction without residual deficits; Z90.49 Acquired absence of other specified parts of digestive tract; Z95.1 Presence of aortocoronary bypass graft; Z98.51 Tubal ligation status; Z96.652 Presence of left artificial knee joint; Z87.891 Personal history of nicotine dependence; Z80.1 Family history of malignant neoplasm of trachea, bronchus and lung; Z82.49 Family history of ischemic heart disease and other diseases of the circulatory system; Y83.4 Other reconstructive surgery as the cause of abnormal reaction of the patient, or of later complication, without mention of misadventure at the time of the procedure
CPT/HCPCS: 96376 ×5; 96365; 96366 ×2; 96372 ×3; 96375 ×2; 99284; 97530 ×3; 97162; 97166; 80048; 85025 ×3; 27385; G0378 ×4; J3370; J0330; J0360; J1100; J0690 ×2; J2405; J1650 ×3; J3010 ×2; J1170 ×6; J2704; J2001

== ENCOUNTER → 2022-09-23 | Outpatient (CLI) | payer MEDICARE, OTHER ==
[2022-09-23 16:04] LABS: Basophils # (A) 0.07 X 10*3/uL (0.00-0.10); Basophils % (A) 0.9 %; Eosinophils # (A) 0.15 X 10*3/uL (0.04-0.35); Eosinophils % (A) 1.9 %; HCT 36.1 % (37.2-46.3); HGB 11.1 d/dL (12.0-15.0); Lymphocytes # (A) 2.34 X 10*3/uL (0.90-5.00); MCH 27.5 pg (27.0-32.0); MCHC 30.7 d/dL (32.0-37.0); MCV 89.4 FL (80.0-97.0); Mean Platelet Volume 9.7 FL (9.5-12.2); Monocytes # (A) 0.72 X 10*3/uL (0.20-1.00); Monocytes % (A) 9.2 %; NRBC Per 100 WBC 0 X 10*3/uL (0.00-0.01); Neutrophils # (A) 4.47 X 10*3/uL (1.80-7.70); Neutrophils % (A) 57.4 %; Platelet Count 262 X 10*3/uL (140-440); RBC 4.04 X 10*6/uL (4.10-5.20); RDW 17.1 % (11.5-14.5)
[2022-09-23 16:18] LABS: Prealbumin 15.6 mg/dL (18.0-42.0)
[2022-09-23 16:22] LABS: ALT 14 U/L (8-44); AST 18 U/L (13-35); Albumin 3.5 d/dL (3.8-4.9); Albumin/Globulin Ratio 1.17 Ratio (1.60-3.17); Alkaline Phosphatase 170 U/L (41-126); Blood Urea Nitrogen 19.8 mg/dL (9.0-27.0); Calcium 8.8 mg/dL (8.7-10.3); Chloride 106 mmol/L (96-109); Glucose 79 mg/dL (70-110); Potassium 4.1 mmol/L (3.5-5.5); Sodium 140 mmol/L (135-145); Total Bilirubin 0.2 mg/dL (0.3-1.2); Total Protein 6.5 d/dL (6.2-8.2)
[2022-09-23 16:37] LABS: Erythrocyte Sedimentation Rate 29 mm/Hr (0-30)
== END | disposition home or self-care (01) ==
LOC: LABWHC1 11:05
PROVIDERS: ATTEND Specialist
DX: L97.513 Non-pressure chronic ulcer of other part of right foot with necrosis of muscle (principal); I73.89 Other specified peripheral vascular diseases; L97.823 Non-pressure chronic ulcer of other part of left lower leg with necrosis of muscle; T81.32XA Disruption of internal operation (surgical) wound, not elsewhere classified, initial encounter; F17.210 Nicotine dependence, cigarettes, uncomplicated; Y82.9 Unspecified medical devices associated with adverse incidents
CPT/HCPCS: 36415; 80053; 84134; 85025; 85652; 86140

== ENCOUNTER 2022-10-09 15:58 | Inpatient (IN) | payer MEDICARE, OTHER ==
--- NOTE | 2022-10-09 16:22 | ED ---
General Adult HPI - General Chief complaint: Skin/Abscess/Foreign Body Stated complaint: Fever Time Seen by Provider: 10/09/22 16:21 Source: patient, family Mode of arrival: wheelchair Limitations: no limitations - History of Present Illness Initial comments: Patient presents to the ED with her daughter for evaluation. Patient states that she developed right foot wounds from rubbing her right foot against a cast that she had on her left knee after undergoing left knee replacement surgery. Patient states that she also developed a left knee wound at her left knee surgical site from rubbing against the cast that she had on over it after her surgery. Patient states that she has been following with the wound care clinic, but for the past 2 days, she has had a fever, so the wound care clinic advised that she come to the ED. Patient states that her left knee wound has been draining purulent fluid significantly more today. Patient admits to having mild left knee pain. Patient also admits to feeling nauseated. Patient's left knee replacement surgery was performed on 05/19/[address] Edge (orthopedic surgery). Patient's daughter states that she gave the patient 2 aspirins about 2 hours ago today. Patient denies any other site of pain, headache, focal neuro deficit, neck pain or stiffness, sore throat, cough or cold symptoms, chest pain, dyspnea, dizziness, abdominal pain, vomiting or diarrhea, dysuria/hematuria/urinary frequency/urinary symptoms, or any other symptoms or complaints. - Related Data Home Medications Medication Instructions Recorded Confirmed Isosorbide Mononitrate [Imdur] 30 mg PO DAILY 11/22/13 05/19/22 Metoprolol Tartrate [Lopressor] 50 mg PO BID 01/19/17 05/19/22 Omeprazole 20 mg PO DAILY 01/19/17 05/19/22 Citalopram Hydrobromide [CeleXA] 40 mg PO DAILY 02/26/19 05/19/22 traZODone HCL 50 mg PO HS 02/26/19 05/19/22 Atorvastatin [Lipitor] 80 mg PO HS 04/26/21 05/19/22 Amitriptyline HCl 50 mg PO HS 03/15/22 05/19/22 Acetaminophen [Tylenol Arthritis] 650 mg PO Q6H PRN 05/19/22 05/19/22 Albuterol Inhaler [Ventolin Hfa 2 puff INHALATION RT-Q6H PRN 05/19/22 05/19/22 Inhaler] Cholecalciferol [Vitamin D3 (25 25 mcg PO DAILY 05/19/22 05/19/22 Mcg = 1000 Iu)] Ferrous Sulfate [Iron (65 MG 325 mg PO DAILY 05/19/22 05/19/22 Elemental)] Sennosides [Senokot] 8.6 mg PO DAILY PRN 05/19/22 05/19/22 Previous Rx's Medication Instructions Recorded lisinopriL [Zestril] 10 mg PO DAILY tab 05/06/22 Sennosides/Docusate Sodium [Senna 1 each PO DAILY #20 capsule 05/21/22 Plus 8.6-50 mg Softgel] Aspirin 325 mg PO DAILY #30 tab 05/22/22 HYDROcodone/APAP 7.5-325MG [[place] 1 each PO Q4HR PRN #28 tab 05/22/22 7.5] polyethylene glycoL 3350 [Miralax] 17 gm PO DAILY PRN #21 packet 05/22/22 Allergies Allergy/AdvReac Type Severity Reaction Status Date / Time codeine AdvReac Nausea & Verified 10/09/22 16:01 Vomiting Review of Systems ROS Statement: Those systems with pertinent positive or pertinent negative responses have been documented in the HPI. ROS Other: All systems not noted in ROS Statement are negative. Past Medical History Past Medical History: Coronary Artery Disease (CAD), Cancer, Chest Pain / Angina, COPD, CVA/TIA, GERD/Reflux, Hyperlipidemia, Hypertension, Osteoarthritis (OA), Rheumatoid Arthritis (RA), Skin Disorder, Vascular Disorder Additional Past Medical History / Comment(s): chronic back pain., scoliosis., heart murmur, SOB w/activity, hx of gastric ulcer, cervical cancer, eczema, TIA-no residuals., frequent diarrhea., hepatitis C with tx,hamlet cataracts, left knee replaced recently-not healing well per pt, lot of pain, recent cataract surg. History of Any Multi-Drug Resistant Organisms: MRSA MDRO Source:: lt foot/knee Past Surgical History: Section, Cholecystectomy, Coronary Bypass/CABG, Heart Catheterization, Heart Catheterization With Stent, Joint Replacement, Orthopedic Surgery, Tubal Ligation Additional Past Surgical History / Comment(s): triple CABG 2008, ORIF right leg, ., heart cath with stent 2013(Mph)., heart cath no stent (2019). left knee replaced 03-15-22 Past Anesthesia/Blood Transfusion Reactions: No Reported Reaction Date of Last Stent Placement:: 2013 Past Psychological History: Anxiety, Depression Smoking Status: Former smoker Past Alcohol Use History: None Reported Past Drug Use History: None Reported - Past Family History Father Family Medical History: Cancer, Dementia Additional Family Medical History / Comment(s): AT AGE 84-LUNG CANCER. Mother Family Medical History: Coronary Artery Disease (CAD) Additional Family Medical History / Comment(s): AT AGE 73. Brother(s) Family Medical History: Cancer General Exam Limitations: no limitations General appearance: alert, in no apparent distress Head exam: Present: normocephalic Eye exam: Present: normal appearance ENT exam: Present: normal oropharynx, mucous membranes moist Neck exam: Present: other (Trachea is in midline). Absent: tenderness, meningismus Respiratory exam: Present: normal lung sounds bilaterally. Absent: respiratory distress, wheezes, rales, rhonchi, stridor Cardiovascular Exam: Present: regular rate, normal rhythm, normal heart sounds, other (Weak, but palpable, dorsalis pedis pulses bilaterally) GI/Abdominal exam: Present: soft. Absent: distended, tenderness, guarding Extremities exam: Present: other (2, small, open wounds are noted over dorsal and medial right foot with mild surrounding erythema and tenderness-> no crepitation or fluctuence is appreciated; a wound draining purulent fluid is noted over L anterior knee surgical wound (cultures obtained)-> drainage in creases with L knee flexion). Absent: calf tenderness Back exam: Absent: CVA tenderness (R), CVA tenderness (L) Neurological exam: Present: alert, oriented X3 Psychiatric exam: Present: normal affect, normal mood Skin exam: Present: warm, dry Course Vital Signs 10/09/22 10/09/22 15:59 17:31 Temperature 98.8 F Pulse Rate 93 81 Respiratory 20 15 Rate Blood Pressure 170/81 111/76 O2 Sat by Pulse 97 100 Oximetry - Reevaluation(s) Reevaluation #1: 10/09/22 18:53 Case, H&P, test results and ED management thus far were discussed with Dr. Estrada. He accepts hospital admission. He recommends infectious disease and orthopedic surgery consultations. He has no further recommendations at this time. 10/09/22 18:57 Patient and daughter are aware the patient's test results, and they both agree with hospital admission at this time. Patient denies development of any new symptoms while in the ED. Medical Decision Making - Medical Decision Making Was pt. sent in by a medical professional or institution (, PA, SALES REVIEW CLERK, urgent care, hospital, or fdc...) When possible be specific @ -No Did you speak to anyone other than the patient for history (EMS, parent, family, police, friend...)? What history was obtained from this source @ -History was also obtained from the patient's daughter. Did you review nursing and triage notes (agree or disagree)? Why? @ -I reviewed and agree with nursing and triage notes Were old charts reviewed (outside hosp., previous admission, EMS record, old EKG, old radiological studies, urgent care reports/EKG's, fdc records)? Report findings @ -No old charts were reviewed Differential Diagnosis (chest pain, altered mental status, abdominal pain women, abdominal pain men, vaginal bleeding, weakness, fever, dyspnea, syncope, headache, dizziness, GI bleed, back pain, seizure, CVA, palpatations, mental health, musculoskeletal)? @ -Fever, wound infection, cellulitis, UTI, viral illness, osteomyelitis, joint infection, surgical infection EKG interpreted by me (3pts min.). @ -None done X-rays interpreted by me (1pt min.). @ -I have reviewed the patient's right foot x-rays and left knee x-rays myself and they show no acute osseous abnormality. I agree with the radiologist's interpretations as above. CT interpreted by me (1pt min.). @ -None done U/S interpreted by me (1pt. min.). @ -None done What testing was considered but not performed or refused? (CT, X-rays, U/S, labs)? Why? @ -None What meds were considered but not given or refused? Why? @ -None Did you discuss the management of the patient with other professionals (professionals i.e. , [facility], SALES REVIEW CLERK, lab, RT, psych nurse, director of social work, cigar making machine operator, teacher, security control room officer, manager rn case)? Give summary @ -No Was smoking cessation discussed for >3mins.? @ -No Was critical care preformed (if so, how long)? @ -No Were there social determinants of health that impacted care today? How? (Homelessness, low income, unemployed, alcoholism, drug addiction, transportation, low edu. Level, literacy, decrease access to med. care, senior living, rehab)? @ -No Was there de-escalation of care discussed even if they declined (Discuss DNR or withdrawal of care, Hospice)? DNR status @ -No What co-morbidities impacted this encounter? (DM, HTN, Smoking, COPD, CAD, Cancer, CVA, ARF, Chemo, Hep., AIDS, mental health diagnosis, sleep apnea, morbid obesity)? @ -None Was patient admitted / discharged? Hospital course, mention meds given and route, prescriptions, significant lab abnormalities, going to OR and other pertinent info. @ -Given the patient's left knee wound purulent drainage and reported fever, I suspect that she likely has a left knee surgical wound infection. Patient has a history of MRSA infection. Cultures were obtained. Patient has been treated with IV vancomycin in the ED. Patient has a mildly low potassium level, which has been repleted with oral potassium in the ED. Patient's glucose level is also mildly low, and she has be en fed a meal in the ED. Patient's x-rays are negative for acute osseous abnormality. Will admit the patient to the hospital for continued IV antibiotic treatment and ID/orthopedic surgery consultations. Dr. Estrada has accepted hospital admission. Undiagnosed new problem with uncertain prognosis? @ -No Drug Therapy requiring intensive monitoring for toxicity (Heparin, Nitro, Insulin, Cardizem)? @ -No Were any procedures done? @ -No Diagnosis/symptom? @ -Left knee surgical wound infection Acute, or Chronic, or Acute on Chronic? @ -Acute Uncomplicated (without systemic symptoms) or Complicated (systemic symptoms)? @ -default Side effects of treatment? @ -No Exacerbation, Progression, or Severe Exacerbation? @ -No Poses a threat to life or bodily function? How? (Chest pain, [place], NH, pneumonia, PE, COPD, DKA, ARF, appy, cholecystitis, CVA, Diverticulitis, Homicidal, Suicidal, threat to staff... and all critical care pts) @ -No Diagnosis/symptom? @ -Hypokalemia Acute, or Chronic, or Acute on Chronic? @ -default Uncomplicated (without systemic symptoms) or Complicated (systemic symptoms)? @ -default Side effects of treatment? @ -none Exacerbation, Progression, or Severe Exacerbation] @ -no Poses a threat to life or bodily function? @ -no - Lab Data Result diagrams: 10/09/22 17:31 10/09/22 17:31 Lab Results 10/09/22 10/09/22 Range/Units 17:31 17:31 WBC 9.8 (3.8-10.6) k/uL RBC 3.39 L (3.80-5.40) m/uL Hgb 9.9 L (11.4-16.0) gm/dL Hct 29.3 L (34.0-46.0) % MCV 86.6 (80.0-100.0) fL MCH 29.3 (25.0-35.0) pg MCHC 33.8 (31.0-37.0) g/dL RDW 16.9 H (11.5-15.5) % Plt Count 351 (150-450) k/uL MPV 7.4 Neutrophils % 80 % Lymphocytes % 13 % Monocytes % 5 % Eosinophils % 1 % Basophils % 0 % Neutrophils # 7.9 H (1.3-7.7) k/uL Lymphocytes # 1.3 (1.0-4.8) k/uL Monocytes # 0.5 (0-1.0) k/uL Eosinophils # 0.1 (0-0.7) k/uL Basophils # 0.0 (0-0.2) k/uL Hypochromasia Slight Anisocytosis Slight Sodium 135 L (137-145) mmol/L Potassium 3.2 L (3.5-5.1) mmol/L Chloride 106 (98-107) mmol/L Carbon Dioxide 22 (22-30) mmol/L Anion Gap 7 mmol/L BUN 18 H (7-17) mg/dL Creatinine 0.62 (0.52-1.04) mg/dL Est GFR (CKD-EPI)AfAm >90 (>60 ml/min/1.73 sqM) Est GFR (CKD-EPI)NonAf >90 (>60 ml/min/1.73 sqM) Glucose 66 L (74-99) mg/dL Calcium 7.7 L (8.4-10.2) mg/dL Total Bilirubin 0.5 (0.2-1.3) mg/dL AST 30 (14-36) U/L ALT 32 (4-34) U/L Alkaline Phosphatase 116 (38-126) U/L Total Protein 6.2 L (6.3-8.2) g/dL Albumin 2.8 L (3.5-5.0) g/dL - Radiology Data Right foot x-rays: 1. No acute osseous abnormality right foot. Left knee x-rays: 1. No acute osseous abnormality left knee. Prosthesis remains in position. 2. Suggestion of small joint effusion. Disposition Clinical Impression: Surgical wound infection, Hypokalemia Disposition: ADMITTED IP TO THIS HOSP Condition: Stable Is patient prescribed a controlled substance at d/c from ED?: No Referrals: Olivier Trinidad DO [Primary Care Provider] - 1-2 days Time of Disposition: 18:54
[2022-10-09] MEDS ORDERED: VANCOMYCIN IV PER PHARMACY 1 EACH MISC MISCELLANE PRN (16:51)
[2022-10-09] MEDS ORDERED: VANCOMYCIN 1,000 MG in SODIUM CHLORIDE 0.9% 250 ML IVPB STA (16:56)
[2022-10-09] MEDS ORDERED: ONDANSETRON 4 MG/2 ML VIAL IVP STA (16:58)
--- NOTE | 2022-10-09 17:18 | XR ---
EXAMINATION TYPE: XR knee complete LT DATE OF EXAM: 10/09/2022 COMPARISON: 09/23/2022 HISTORY: Draining the wound fever TECHNIQUE: 3 view left knee FINDINGS: Small joint effusion may be present. Knee prosthesis is present. No acute fractures are sandy dent. No cortical erosion is evident. Some mild diffuse soft tissue swelling may be present. IMPRESSION: 1. No acute osseous abnormality left knee. Prosthesis remains in position. 2. Suggestion of small joint effusion
--- NOTE | 2022-10-09 17:20 | XR ---
EXAMINATION TYPE: XR foot complete RT DATE OF EXAM: 10/09/2022 COMPARISON: None HISTORY: Wounds fever TECHNIQUE: 3 view right foot FINDINGS: No acute fracture or dislocation is evident. Joint spaces are preserved. Soft tissues appea r normal. No cortical erosions are evident. Follow up exams can be performed 7-10 days from acute trauma for continued pain. Nuclear medicine bon e scan can be performed for sufficient clinical suspicion of osteomyelitis. IMPRESSION: 1. No acute osseous abnormality right foot
[2022-10-09 17:57] LABS: Anisocytosis Slight; Basophils % (A) 0 %; Eosinophils # (A) 0.1 k/uL (0-0.7); Eosinophils % (A) 1 %; HCT 29.3 % (34.0-46.0); HGB 9.9 gm/dL (11.4-16.0); Hypochromasia Slight; Lymphocytes # (A) 1.3 k/uL (1.0-4.8); Lymphocytes % (A) 13 %; MCH 29.3 pg (25.0-35.0); MCHC 33.8 g/dL (31.0-37.0); MCV 86.6 fL (80.0-100.0); Mean Platelet Volume 7.4; Monocytes # (A) 0.5 k/uL (0-1.0); Monocytes % (A) 5 %; Neutrophils # (A) 7.9 k/uL (1.3-7.7); Neutrophils % (A) 80 %; Platelet Count 351 k/uL (150-450); RBC 3.39 m/uL (3.80-5.40); RDW 16.9 % (11.5-15.5); WBC 9.8 k/uL (3.8-10.6)
[2022-10-09 18:05] LABS: ALT 32 U/L (4-34); AST 30 U/L (14-36); African American GFR (CKD) >90 (>60 ml/min/1.73 sqM); Albumin 2.8 g/dL (3.5-5.0); Alkaline Phosphatase 116 U/L (38-126); Anion Gap 7 mmol/L; Blood Urea Nitrogen 18 mg/dL (7-17); Calcium 7.7 mg/dL (8.4-10.2); Carbon Dioxide 22 mmol/L (22-30); Chloride 106 mmol/L (98-107); Glucose 66 mg/dL (74-99); Non-African American GFR(CKD) >90 (>60 ml/min/1.73 sqM); Potassium 3.2 mmol/L (3.5-5.1); Sodium 135 mmol/L (137-145); Total Bilirubin 0.5 mg/dL (0.2-1.3); Total Protein 6.2 g/dL (6.3-8.2)
[2022-10-09] MEDS ORDERED: HYDROmorphone 0.5 MG/0.5 ML SYRINGE IVP STA (18:23)
[2022-10-09] MEDS ORDERED: NALOXONE 0.4 MG/ML 1 ML VIAL IV PRN (18:54)
[2022-10-09] MEDS ORDERED: POTASSIUM CHLORIDE ER 10 MEQ TAB.ER.PRT PO STA (18:56)
[2022-10-09] MEDS: HYDROmorphone 0.5 MG/0.5 ML SYRINGE IVP PRN (22:22)
[2022-10-09] MEDS ORDERED: ACETAMINOPHEN TAB 325 MG TAB PO PRN (22:41)
[2022-10-10] MEDS: ATORVASTATIN 80 MG TAB PO SCH ×2 (00:34→20:30)
[2022-10-10] MEDS: traZODone HCL 50 MG TAB PO SCH ×2 (00:35→20:30)
[2022-10-10] MEDS: METOPROLOL TARTRATE 50 MG TAB PO SCH ×3 (00:35→20:30)
[2022-10-10] MEDS: HYDROXYCHLOROQUINE SULFATE 200 MG TAB PO SCH ×3 (00:35→20:29)
[2022-10-10] MEDS: HYDROmorphone 0.5 MG/0.5 ML SYRINGE IVP PRN ×5 (03:04→23:57)
--- NOTE | 2022-10-10 03:51 | P.HPIM ---
History of Present Illness H&P Date: 10/09/22 Chief Complaint: left knee wound 67 year old female with hypertension she is here for persistent left knee wound with positive culture for MRSA per her report. she had 3 surgeries for knee replacement and repairs of the left knee. since march of this year. she just had her left leg cast removed recently , but she was rubbing her right foot against the bottom of the cast and her left knee was rubbing against the top portion of the cast. when removed she noticed a draining wound over the left knee. she also had suffered an ulceration over the medial aspect of the right foot. she reports chills and fever at home, she has been on antibiotics at home , she does not recall the name, but she was recently told that she tested positive and then started spiking fevers at home . for which she decided to come in for evaluation. she admits to occasional smoking, but denies any drugs , or alcohol PMHx hypertension , cad s/p CABG, RA, CVA review of systems Pertinent positives as noted in HPI. All other systems were reviewed and are negative on exam Constitutional: No acute distress, conversant, pleasant Eyes: Anicteric sclerae, moist conjunctiva, Pupils equal round reactive to light ENMT: NC/AT Oropharynx clear, no erythema, or exudates Neck: Supple, no masses, or JVD No carotid bruits No thyromegaly Lungs: Clear to auscultation Clear to percussion Normal respiratory effort, no accessory muscle use Cardiovascular: Heart regular in rate and rhythm, yes murmurs,no gallops, or rubs No peripheral edema Abdominal: Soft Nontender, no guarding, rebound or rigidity Abdomen moving with respiration Normoactive bowel sounds No hepatomegaly, No splenomegaly No palpable mass No abdominal wall hernia noted Skin: superficial ulcers over the medial aspect of the right foot, with erythema and warmth no drainge, tender to palpation draining wound over the left knee, with purulent discharge, tenderness to plapation , no erythema Extremities: No digital cyanosis No clubbing Pedal pulses intact and symmetrical Radial pulses intact and symmetrical No calf tenderness Psychiatric: Alert and oriented to person, place and time Appropriate affect fair judgement Neuro Muscles Strength 5/5 in all 4 extremities with some limitation over the left knee due to pain Sensation to light touch grossly present throughout Cranial nerves II-XII grossly intact Lymphatics: no palpable cervical or supraclavicular lymph nodes Past Medical History Past Medical History: Coronary Artery Disease (CAD), Cancer, Chest Pain / Angina, COPD, CVA/TIA, GERD/Reflux, Hyperlipidemia, Hypertension, Osteoarthritis (OA), Rheumatoid Arthritis (RA), Skin Disorder, Vascular Disorder Additional Past Medical History / Comment(s): chronic back pain., scoliosis., heart murmur, SOB w/activity, hx of gastric ulcer, cervical cancer, eczema, TIA-no residuals., frequent diarrhea., hepatitis C with tx,hamlet cataracts, left knee replaced recently-not healing well per pt, lot of pain, recent cataract surg. History of Any Multi-Drug Resistant Organisms: MRSA Date of last positivie culture/infection: 10/09/22 MDRO Source:: lt foot/knee Past Surgical History: Section, Cholecystectomy, Coronary Bypass/CABG, Heart Catheterization, Heart Catheterization With Stent, Joint Replacement, Orthopedic Surgery, Tubal Ligation Additional Past Surgical History / Comment(s): triple CABG 2008, ORIF right leg, ., heart cath with stent 2013(Mph)., heart cath no stent (2019). left knee replaced 03-15-22, tip fib screws Past Anesthesia/Blood Transfusion Reactions: No Reported Reaction Date of Last Stent Placement:: 2013 Smoking Status: Never smoker - Past Family History Father Family Medical History: Cancer, Dementia Additional Family Medical History / Comment(s): AT AGE 84-LUNG CANCER. Mother Family Medical History: Coronary Artery Disease (CAD) Additional Family Medical History / Comment(s): AT AGE 73. Brother(s) Family Medical History: Cancer Medications and Allergies Home Medications Medication Instructions Recorded Confirmed Type Isosorbide Mononitrate [Imdur] 30 mg PO DAILY 11/22/13 10/09/22 History Metoprolol Tartrate [Lopressor] 50 mg PO BID 01/19/17 10/09/22 History Omeprazole 20 mg PO DAILY 01/19/17 10/09/22 History Citalopram Hydrobromide [CeleXA] 40 mg PO DAILY 02/26/19 10/09/22 History traZODone HCL 50 mg PO HS 02/26/19 10/09/22 History Atorvastatin [Lipitor] 80 mg PO HS 04/26/21 10/09/22 History Acetaminophen [Tylenol Arthritis] 650 mg PO Q6H PRN 05/19/22 10/09/22 History Albuterol Inhaler [Ventolin Hfa 2 puff INHALATION RT-Q6H PRN 05/19/22 10/09/22 History Inhaler] Aspirin 325 mg PO DAILY #30 tab 05/22/22 10/09/22 Rx Celecoxib [CeleBREX] 200 mg PO BID 10/09/22 10/09/22 History Collagenase [Santyl Ointment] 1 applic TOPICAL DAILY 10/09/22 10/09/22 History Hydroxychloroquine Sulfate 200 mg PO BID 10/09/22 10/09/22 History [Plaquenil] lisinopriL [Zestril] 5 mg PO DAILY 10/09/22 10/09/22 History Allergies Allergy/AdvReac Type Severity Reaction Status Date / Time codeine AdvReac Nausea & Verified 10/09/22 20:44 Vomiting Physical Exam Vitals: Vital Signs Temp Pulse Pulse Resp BP BP Pulse Ox 10/10/22 00:49 99.9 F H 69 18 114/57 98 10/09/22 22:17 99.2 F 87 16 119/69 96 10/09/22 22:00 98.9 F 85 18 148/59 97 10/09/22 19:53 88 16 127/57 99 10/09/22 17:31 81 15 111/76 100 10/09/22 15:59 98.8 F 93 20 170/81 97 Intake and Output 10/09/22 10/09/22 10/10/22 14:59 22:59 06:59 Other: Voiding Method Bedpan Weight 54.431 kg Results CBC & Chem 7: 10/09/22 17:31 10/09/22 17:31 Labs: Abnormal Lab Results - Last 24 Hours (Table) 10/09/22 10/09/22 Range/Units 17:31 17:31 RBC 3.39 L (3.80-5.40) m/uL Hgb 9.9 L (11.4-16.0) gm/dL Hct 29.3 L (34.0-46.0) % RDW 16.9 H (11.5-15.5) % Neutrophils # 7.9 H (1.3-7.7) k/uL Sodium 135 L (137-145) mmol/L Potassium 3.2 L (3.5-5.1) mmol/L BUN 18 H (7-17) mg/dL Glucose 66 L (74-99) mg/dL Calcium 7.7 L (8.4-10.2) mg/dL Total Protein 6.2 L (6.3-8.2) g/dL Albumin 2.8 L (3.5-5.0) g/dL Thrombosis Risk Factor Assmnt - Choose All That Apply Each Risk Factor Represents 2 Points: Age 61-74 years Thrombosis Risk Factor Assessment Total Risk Factor Score: 2 Thrombosis Risk Factor Assessment Level: Low Risk Assessment and Plan Assessment: 67 year old female with multiple left knee surgeries, coming in for draining wound , I discussed the case with ED doc and I accepted the admission for MRSA infection of the left knee, for IV antibiotics and surgical evaluatio n with an ticipated length of stay > 2 midnights MRSA infection of the left knee. ,with failed OP therapy due to fever, and ongoing drainage follow up cultures vancomycin IV tylenol for fever, gentle IVF hydration with normal saline at 50 cc per hour general surgery evaluation hypokalemia replaced , continue to monitor level chronic conditions hypertension , continue lisinopril and metoprolol CAD s/p CABG continue aspirin , statin , and imdur full code DVT PPX lovenox sc daily 40 mg
[2022-10-10] MEDS: SODIUM CHLORIDE 0.9% 1,000 ML IV SCH (05:25)
[2022-10-10 07:31] LABS: ALT 27 U/L (4-34); AST 26 U/L (14-36); African American GFR (CKD) >90 (>60 ml/min/1.73 sqM); Albumin 2.6 g/dL (3.5-5.0); Albumin/Globulin Ratio 0.9; Alkaline Phosphatase 118 U/L (38-126); Anion Gap 7 mmol/L; Blood Urea Nitrogen 15 mg/dL (7-17); Calcium 7.4 mg/dL (8.4-10.2); Carbon Dioxide 24 mmol/L (22-30); Chloride 108 mmol/L (98-107); Glucose 68 mg/dL (74-99); Non-African American GFR(CKD) >90 (>60 ml/min/1.73 sqM); Potassium 3.9 mmol/L (3.5-5.1); Sodium 139 mmol/L (137-145); Total Bilirubin 0.4 mg/dL (0.2-1.3); Total Protein 5.6 g/dL (6.3-8.2)
[2022-10-10] MEDS: VANCOMYCIN 1,000 MG in SODIUM CHLORIDE 0.9% 250 ML IVPB SCH (08:26)
[2022-10-10] MEDS: ASPIRIN 325 MG TAB PO SCH (08:27)
[2022-10-10] MEDS: CITALOPRAM HYDROBROMIDE 20 MG TAB PO SCH (08:28)
[2022-10-10] MEDS: PANTOPRAZOLE 40 MG TABLET PO SCH (08:28)
[2022-10-10] MEDS: lisinopriL 5 MG TAB PO SCH (08:28)
[2022-10-10] MEDS: ISOSORBIDE MONONITRATE ER 30 MG TAB.ER.24H PO SCH (08:28)
[2022-10-10 09:09] LABS: Basophils # (A) 0.04 X 10*3/uL (0.00-0.10); Basophils % (A) 0.4 %; Eosinophils # (A) 0 X 10*3/uL (0.04-0.35); Eosinophils % (A) 0 %; HCT 28.7 % (37.2-46.3); Lymphocytes # (A) 1.48 X 10*3/uL (0.90-5.00); Lymphocytes % (A) 16.3 %; MCH 27.9 pg (27.0-32.0); MCHC 31.4 d/dL (32.0-37.0); MCV 88.9 FL (80.0-97.0); Mean Platelet Volume 9.2 FL (9.5-12.2); Monocytes # (A) 0.76 X 10*3/uL (0.20-1.00); Monocytes % (A) 8.4 %; NRBC Per 100 WBC 0 X 10*3/uL (0.00-0.01); Neutrophils # (A) 6.75 X 10*3/uL (1.80-7.70); Neutrophils % (A) 74.1 %; Platelet Count 321 X 10*3/uL (140-440); RBC 3.23 X 10*6/uL (4.10-5.20); RDW 17.1 % (11.5-14.5)
--- NOTE | 2022-10-10 12:17 | P.PN ---
Subjective Progress Note Date: 10/10/22 Patient is a 67-year-old female with PMH of hypertension, CAD, COPD, GERD, history of CVA, hypertension, dyslipidemia, rheumatoid arthritis with history of left knee surgery presented to the ED for bilateral swelling and redness of her feet along with a draining wound over her left knee. In the ED, she was noted to be tachycardic with heart rate in the 90s. Vital signs were otherwise stable. She was afebrile. CBC showed hemoglobin of 9.9. CMP showed sodium 135, potassium of 3.2, BUN of 18, glucose is 66, calcium is 7.7 and albumin of 2.8. The x-ray showed small joint effusion and prosthesis. Foot x-ray was negative. Patient was admitted for further management of her symptoms. 10/10 Patient was seen and examined. No acute events overnight. She reports improving erythema of her bilateral feet. She continues to report pain and swelling in her left knee. She denies any chest pain, shortness breath or palpitations. No nausea or vomiting. No fever or chills. CBC this morning shows hemoglobin of 9. BMP shows chloride of 108, glucose is 68 him a calcium of 7.4 and albumin of 2.6. Wound and blood cultures pending. Orthopedic surgery has been consulted. General: non toxic, no distress, appears at stated age Derm: warm, dry Head: atraumatic, normocephalic, symmetric Eyes: EOMI, no lid lag, anicteric sclera Cardiovascular: S1S2 reg, + murmur Lungs: Decreased breath sounds bilateral, no rhonchi, no rales , no accessory muscle use Abdominal: soft, nontender to palpation, no guarding, no appreciable organomegaly Ext: no gross muscle atrophy, no edema, no contractures, erythema of the distal foot bilaterally, left knee swelling with purulent drainage and reduced ROM due to pain. Neuro: no focal neuro deficits Psych: Alert, oriented, appropriate affect MRSA infection of the left knee Bilateral foot cellulitis Normocytic anemia Hypoglycemia Chronic conditions: Hypertension, CAD, COPD, GERD, history of CVA, hypertension, dyslipidemia, rheumatoid arthritis Based on my assessment of this patient, this patient meets a high complexity level of care. Patient has an acute diagnosis of L knee infection that poses a threat to life or bodily function. MRSA infection of the left knee: Continue Vancomycin dose per pharmacy. Renal function monitoring due to nephrotoxicity of Vancomycin. Follow up wound and blood cultures. Orthopedic surgery consulted. ID consulted. Fall precautions. PT consulted. Bilateral foot cellulitis: IV antibiotics as above. Normocytic anemia: Appears at baseline. No signs of active bleed. Daily CBC. Transfuse if Hg < 7. Hypoglycemia: Accuchecks ACHS with Hypoglycemic precautions. I have reviewed the following medical device sales consultant notes: I have reviewed the results of the following tests: CBC, BMP. I have ordered the following tests: CBC, BMP I have discussed the care of this patient with the following independent historian: I have independently interpreted the following test below: I have discussed the management of this patient with the following physician: This patient has a high risk of morbidity due to the following reasons: Patient is currently on Vancomycin which is nephrotoxic and requires monitoring of renal function with trough. Objective - Vital Signs Vital signs: Vital Signs Temp 99.1 F 10/10/22 11:30 Pulse 67 10/10/22 11:30 Resp 18 10/10/22 11:30 BP 124/62 10/10/22 11:30 Pulse Ox 96 10/10/22 11:30 FiO2 Intake & Output 10/09/22 10/10/22 10/10/22 18:59 06:59 18:59 Weight 54.431 kg 54.431 kg Other: Voiding Method Bedpan # Voids 1 1 - Labs CBC & Chem 7: 10/10/22 06:28 10/10/22 06:28 Labs: Abnormal Lab Results - Last 24 Hours (Table) 10/09/22 10/09/22 10/10/22 Range/Units 17:31 17:31 06:28 RBC 3.39 L (3.80-5.40) m/uL Hgb 9.9 L (11.4-16.0) gm/dL Hct 29.3 L (34.0-46.0) % MCHC (32.0-37.0) d/dL RDW 16.9 H (11.5-15.5) % MPV (9.5-12.2) FL Neutrophils # 7.9 H (1.3-7.7) k/uL Eosinophils # (0.04-0.35) X 10*3/uL Sodium 135 L (137-145) mmol/L Potassium 3.2 L (3.5-5.1) mmol/L Chloride 108 H (98-107) mmol/L BUN 18 H (7-17) mg/dL Glucose 66 L 68 L (74-99) mg/dL Calcium 7.7 L 7.4 L (8.4-10.2) mg/dL Total Protein 6.2 L 5.6 L (6.3-8.2) g/dL Albumin 2.8 L 2.6 L (3.5-5.0) g/dL 10/10/22 Range/Units 06:28 RBC 3.23 L (3.80-5.40) m/uL Hgb 9.0 L (11.4-16.0) gm/dL Hct 28.7 L (34.0-46.0) % MCHC 31.4 L (32.0-37.0) d/dL RDW 17.1 H (11.5-15.5) % MPV 9.2 L (9.5-12.2) FL Neutrophils # (1.3-7.7) k/uL Eosinophils # 0 L (0.04-0.35) X 10*3/uL Sodium (137-145) mmol/L Potassium (3.5-5.1) mmol/L Chloride (98-107) mmol/L BUN (7-17) mg/dL Glucose (74-99) mg/dL Calcium (8.4-10.2) mg/dL Total Protein (6.3-8.2) g/dL Albumin (3.5-5.0) g/dL
[2022-10-10 13:03] LABS: Glucose,Whole Blood 83 mg/dL (70-110)
[2022-10-10 17:27] LABS: Glucose,Whole Blood 91 mg/dL (70-110)
[2022-10-10 17:41] LABS: Appearance,Urine Clear (Clear); Bacteria,Urine Rare /hpf; Bilirubin,Urine Negative (Negative); Blood,Urine Negative (Negative); Color,Urine Light Red; Glucose,Urine (UA) Negative (Negative); Ketones,Urine Negative (Negative); Leukocyte Esterase,Urine Negative (Negative); Nitrite,Urine Negative (Negative); Protein,Urine 1+ (Negative); RBC,Urine 1 /hpf (0-5); Specific Gravity,Urine 1.027 (1.001-1.035); Squamous Epithelial Cell,Urine 2 /hpf (0-4); WBC,Urine 2 /hpf (0-5)
[2022-10-10 20:44] LABS: Glucose,Whole Blood 178 mg/dL (70-110)
--- NOTE | 2022-10-10 23:18 | P.CONS ---
History of Present Illness - Reason for Consult Consult date: 10/10/22 - History of Present Illness Patient is a 67-year-old female with a past medical history significant for hypertension hyperlipidemia osteoarthritis coronary artery disease who did have a left knee replacement about 4 months ago patient mention she did have a cast on the left leg that apparently has been rubbing on her right foot leading to some superficial ulceration and redness to the right foot area patient apparently also developed a wound to the left knee area that seem to have been cultured on September 16, 2022 and those has been negative patient was noticed to have significant purulent drainage from the left knee area that has been cultured and infectious disease was consulted for further management of antibiotic therapy patient is complaining of pain to the left knee area to be more of a dull aching at times sharp 7-8 out of 10 and no radiation has been complaining of mostly pain in the right foot dorsum area with the patient has some superficial ulceration swelling and redness but no drainage, patient on presentation to the hospital was afebrile she did have a low-grade fever of 99.9 degrees following right after midnight patient was not tachycardic hypotensive or hypoxic did have a normal white count with a left shift creatinine has been normal liver enzymes are normal urine has been negative local cultures currently pending patient is being treated with vancomycin infectious disease was consulted for further management of antibiotic therapy Past Medical History Past Medical History: Coronary Artery Disease (CAD), Cancer, Chest Pain / Angina, COPD, CVA/TIA, GERD/Reflux, Hyperlipidemia, Hypertension, Osteoarthritis (OA), Rheumatoid Arthritis (RA), Skin Disorder, Vascular Disorder Additional Past Medical History / Comment(s): chronic back pain., scoliosis., heart murmur, SOB w/activity, hx of gastric ulcer, cervical cancer, eczema, TIA-no residuals., frequent diarrhea., hepatitis C with tx,hamlet cataracts, left knee replaced recently-not healing well per pt, lot of pain, recent cataract surg. History of Any Multi-Drug Resistant Organisms: MRSA Year Discovered:: 10/09/22 MDRO Source:: lt foot/knee Past Surgical History: Section, Cholecystectomy, Coronary Bypass/CABG, Heart Catheterization, Heart Catheterization With Stent, Joint Replacement, Orthopedic Surgery, Tubal Ligation Additional Past Surgical History / Comment(s): triple CABG 2008, ORIF right leg, ., heart cath with stent 2013(Mph)., heart cath no stent (2019). left knee replaced 03-15-22, tip fib screws Past Anesthesia/Blood Transfusion Reactions: No Reported Reaction Date of Last Stent Placement:: 2013 Smoking Status: Never smoker - Past Family History Father Family Medical History: Cancer, Dementia Additional Family Medical History / Comment(s): AT AGE 84-LUNG CANCER. Mother Family Medical History: Coronary Artery Disease (CAD) Additional Family Medical History / Comment(s): AT AGE 73. Brother(s) Family Medical History: Cancer Medications and Allergies Home Medications Medication Instructions Recorded Confirmed Type Isosorbide Mononitrate [Imdur] 30 mg PO DAILY 11/22/13 10/09/22 History Metoprolol Tartrate [Lopressor] 50 mg PO BID 01/19/17 10/09/22 History Omeprazole 20 mg PO DAILY 01/19/17 10/09/22 History Citalopram Hydrobromide [CeleXA] 40 mg PO DAILY 02/26/19 10/09/22 History traZODone HCL 50 mg PO HS 02/26/19 10/09/22 History Atorvastatin [Lipitor] 80 mg PO HS 04/26/21 10/09/22 History Acetaminophen [Tylenol Arthritis] 650 mg PO Q6H PRN 05/19/22 10/09/22 History Albuterol Inhaler [Ventolin Hfa 2 puff INHALATION RT-Q6H PRN 05/19/22 10/09/22 History Inhaler] Aspirin 325 mg PO DAILY #30 tab 05/22/22 10/09/22 Rx Celecoxib [CeleBREX] 200 mg PO BID 10/09/22 10/09/22 History Collagenase [Santyl Ointment] 1 applic TOPICAL DAILY 10/09/22 10/09/22 History Hydroxychloroquine Sulfate 200 mg PO BID 10/09/22 10/09/22 History [Plaquenil] lisinopriL [Zestril] 5 mg PO DAILY 10/09/22 10/09/22 History Allergies Allergy/AdvReac Type Severity Reaction Status Date / Time codeine AdvReac Nausea & Verified 10/09/22 20:44 Vomiting Physical Exam Vitals: Vital Signs Temp Pulse Pulse Resp BP BP Pulse Ox 10/10/22 11:30 99.1 F 67 18 124/62 96 10/10/22 07:20 98.8 F 76 18 126/66 97 10/10/22 00:49 99.9 F H 69 18 114/57 98 10/09/22 22:17 99.2 F 87 16 119/69 96 10/09/22 22:00 98.9 F 85 18 148/59 97 10/09/22 19:53 88 16 127/57 99 10/09/22 17:31 81 15 111/76 100 10/09/22 15:59 98.8 F 93 20 170/81 97 Intake and Output 10/09/22 10/10/22 10/10/22 22:59 06:59 14:59 Other: Voiding Method Bedpan # Voids 1 1 Weight 54.431 kg Results CBC & Chem 7: 10/10/22 06:28 10/10/22 06:28 Labs: Abnormal Lab Results - Last 24 Hours (Table) 10/09/22 10/09/22 10/10/22 Range/Units 17:31 17:31 06:28 RBC 3.39 L (3.80-5.40) m/uL Hgb 9.9 L (11.4-16.0) gm/dL Hct 29.3 L (34.0-46.0) % MCHC (32.0-37.0) d/dL RDW 16.9 H (11.5-15.5) % MPV (9.5-12.2) FL Neutrophils # 7.9 H (1.3-7.7) k/uL Eosinophils # (0.04-0.35) X 10*3/uL Sodium 135 L (137-145) mmol/L Potassium 3.2 L (3.5-5.1) mmol/L Chloride 108 H (98-107) mmol/L BUN 18 H (7-17) mg/dL Glucose 66 L 68 L (74-99) mg/dL Calcium 7.7 L 7.4 L (8.4-10.2) mg/dL Total Protein 6.2 L 5.6 L (6.3-8.2) g/dL Albumin 2.8 L 2.6 L (3.5-5.0) g/dL 10/10/22 Range/Units 06:28 RBC 3.23 L (3.80-5.40) m/uL Hgb 9.0 L (11.4-16.0) gm/dL Hct 28.7 L (34.0-46.0) % MCHC 31.4 L (32.0-37.0) d/dL RDW 17.1 H (11.5-15.5) % MPV 9.2 L (9.5-12.2) FL Neutrophils # (1.3-7.7) k/uL Eosinophils # 0 L (0.04-0.35) X 10*3/uL Sodium (137-145) mmol/L Potassium (3.5-5.1) mmol/L Chloride (98-107) mmol/L BUN (7-17) mg/dL Glucose (74-99) mg/dL Calcium (8.4-10.2) mg/dL Total Protein (6.3-8.2) g/dL Albumin (3.5-5.0) g/dL Assessment and Plan Plan: 1patient presented hospital with the right foot pain swelling redness in this patient also having significant purulent drainage from the left knee that was replaced on 05/19/2022 and concerning for possible left knee septic arthritis and a complaint of right foot cellulitis likely from gram-positive skin nikko 2-await Ortho evaluation possible debridement and deep culture 3-for now continue with vancomycin pharmacy to dose while awaiting further work- up to be completed We will follow on clinical condition and cultures to further adjust medication if needed Thank you for this consultation we will follow the patient along with you Dictation was produced using [employer] dictation software. please excuse any grammatical, word or spelling errors. Time with Patient: Greater than 30
[2022-10-11] MEDS: VANCOMYCIN 1,000 MG in SODIUM CHLORIDE 0.9% 250 ML IVPB SCH (02:13)
[2022-10-11] MEDS: SODIUM CHLORIDE 0.9% 1,000 ML IV SCH ×2 (02:15→20:07)
[2022-10-11] MEDS: HYDROmorphone 0.5 MG/0.5 ML SYRINGE IVP PRN ×5 (04:03→22:40)
[2022-10-11 06:25] LABS: African American GFR (CKD) >90 (>60 ml/min/1.73 sqM); Non-African American GFR(CKD) >90 (>60 ml/min/1.73 sqM)
[2022-10-11 07:25] LABS: Glucose,Whole Blood 113 mg/dL (70-110)
[2022-10-11] MEDS: ALBUTEROL NEBULIZED 2.5 MG/3 ML INHALATION PRN ×3 (07:41→15:11)
--- NOTE | 2022-10-11 07:45 | P.CNOR ---
History of Present Illness - [facility] Consult date: 10/10/22 Consult reason: joint pain History of present illness: 67 yo female who has had several left knee surgeries presented with drainage from the Left knee. She has been treated for this in the past and it continues to be an issues. She at one point healed after being in a cylinder cast for some time due to her extensor mechanism rupture. She is done with several times now. She states the drainage has increased over the past few days and has become more purulent. States pain in this knee with movement. She denies any fevers or chills at this time. Review of Systems 14 points review of systems completed and as stated in HPI, all other systems reviewed are negative. Past Medical History Past Medical History: Coronary Artery Disease (CAD), Cancer, Chest Pain / Angina, COPD, CVA/TIA, GERD/Reflux, Hyperlipidemia, Hypertension, Osteoarthritis (OA), Rheumatoid Arthritis (RA), Skin Disorder, Vascular Disorder Additional Past Medical History / Comment(s): chronic back pain., scoliosis., heart murmur, SOB w/activity, hx of gastric ulcer, cervical cancer, eczema, TIA-no residuals., frequent diarrhea., hepatitis C with tx,hamlet cataracts, left knee replaced recently-not healing well per pt, lot of pain, recent cataract surg. History of Any Multi-Drug Resistant Organisms: MRSA Year Discovered:: 10/09/22 MDRO Source:: lt foot/knee Past Surgical History: Section, Cholecystectomy, Coronary Bypass/CABG, Heart Catheterization, Heart Catheterization With Stent, Joint Replacement, Orthopedic Surgery, Tubal Ligation Additional Past Surgical History / Comment(s): triple CABG 2008, ORIF right leg, ., heart cath with stent 2013(Mph)., heart cath no stent (2019). left knee replaced 03-15-22, tip fib screws Past Anesthesia/Blood Transfusion Reactions: No Reported Reaction Date of Last Stent Placement:: 2013 Smoking Status: Never smoker - Past Family History Father Family Medical History: Cancer, Dementia Additional Family Medical History / Comment(s): AT AGE 84-LUNG CANCER. Mother Family Medical History: Coronary Artery Disease (CAD) Additional Family Medical History / Comment(s): AT AGE 73. Brother(s) Family Medical History: Cancer Medications and Allergies Home Medications Medication Instructions Recorded Confirmed Type Isosorbide Mononitrate [Imdur] 30 mg PO DAILY 11/22/13 10/09/22 History Metoprolol Tartrate [Lopressor] 50 mg PO BID 01/19/17 10/09/22 History Omeprazole 20 mg PO DAILY 01/19/17 10/09/22 History Citalopram Hydrobromide [CeleXA] 40 mg PO DAILY 02/26/19 10/09/22 History traZODone HCL 50 mg PO HS 02/26/19 10/09/22 History Atorvastatin [Lipitor] 80 mg PO HS 04/26/21 10/09/22 History Acetaminophen [Tylenol Arthritis] 650 mg PO Q6H PRN 05/19/22 10/09/22 History Albuterol Inhaler [Ventolin Hfa 2 puff INHALATION RT-Q6H PRN 05/19/22 10/09/22 History Inhaler] Aspirin 325 mg PO DAILY #30 tab 05/22/22 10/09/22 Rx Celecoxib [CeleBREX] 200 mg PO BID 10/09/22 10/09/22 History Collagenase [Santyl Ointment] 1 applic TOPICAL DAILY 10/09/22 10/09/22 History Hydroxychloroquine Sulfate 200 mg PO BID 10/09/22 10/09/22 History [Plaquenil] lisinopriL [Zestril] 5 mg PO DAILY 10/09/22 10/09/22 History Allergies Allergy/AdvReac Type Severity Reaction Status Date / Time codeine AdvReac Nausea & Verified 10/09/22 20:44 Vomiting Physical Examination Osteopathic Statement: *. No significant issues noted on an osteopathic structural exam other than those noted in the History and Physical/Consult. Physical Exam: -Patient is alert and oriented 3 appears well-nourished well-hydrated is in no acute distress. They do not appear septic. -There is TTP left knee open wound drainage from the superior portion of the patellar region and incision. -Upper extremities show [5] out of 5 strength in all major muscle groups. -Lower extremities with 4+out of 5 strength in all major muscle groups -There is [FROM] that is [painless] of the b/l UE and LE in all major joints. -They are intact to light touch sensation in C5 to T1 and L2 to S1 nerve distribution. -DTR [2]/4 all upper and lower extremities -Patient has palpable distal pulses all 4 ext -Compartments are soft and compressible. -Patient shows a negative Wang's [-Neg Hoffmans b/l] [-Neg Clonus b/l] [-Neg babinski b/l] Cranial nerves II through XII are grossly intact. bilateral feet have severe ulcerations and erythema about them Results x-rays demonstrate hardware in good position with no evidence of fracture or failure - Labs Labs: Abnormal Lab Results - Last 24 Hours (Table) 10/09/22 10/09/22 10/10/22 Range/Units 17:31 17:31 06:28 RBC 3.39 L (3.80-5.40) m/uL Hgb 9.9 L (11.4-16.0) gm/dL Hct 29.3 L (34.0-46.0) % MCHC (32.0-37.0) d/dL RDW 16.9 H (11.5-15.5) % MPV (9.5-12.2) FL Neutrophils # 7.9 H (1.3-7.7) k/uL Eosinophils # (0.04-0.35) X 10*3/uL Sodium 135 L (137-145) mmol/L Potassium 3.2 L (3.5-5.1) mmol/L Chloride 108 H (98-107) mmol/L BUN 18 H (7-17) mg/dL Glucose 66 L 68 L (74-99) mg/dL Calcium 7.7 L 7.4 L (8.4-10.2) mg/dL Total Protein 6.2 L 5.6 L (6.3-8.2) g/dL Albumin 2.8 L 2.6 L (3.5-5.0) g/dL 10/10/22 Range/Units 06:28 RBC 3.23 L (3.80-5.40) m/uL Hgb 9.0 L (11.4-16.0) gm/dL Hct 28.7 L (34.0-46.0) % MCHC 31.4 L (32.0-37.0) d/dL RDW 17.1 H (11.5-15.5) % MPV 9.2 L (9.5-12.2) FL Neutrophils # (1.3-7.7) k/uL Eosinophils # 0 L (0.04-0.35) X 10*3/uL Sodium (137-145) mmol/L Potassium (3.5-5.1) mmol/L Chloride (98-107) mmol/L BUN (7-17) mg/dL Glucose (74-99) mg/dL Calcium (8.4-10.2) mg/dL Total Protein (6.3-8.2) g/dL Albumin (3.5-5.0) g/dL H & H 10/09/22 10/10/22 Range/Units 17:31 06:28 Hgb 9.9 L 9.0 L (11.4-16.0) gm/dL Hct 29.3 L 28.7 L (34.0-46.0) % Result Diagrams: 10/10/22 06:28 10/11/22 05:52 Assessment and Plan Assessment: 67-year-old female status post multiple left knee surgeries with likely continued surgical site infection Plan: -agree with medical management - discuss case with Dr. Edge -NPO @ [facility] -Further recs pending
[2022-10-11] MEDS: CITALOPRAM HYDROBROMIDE 20 MG TAB PO SCH (08:48)
[2022-10-11] MEDS: ASPIRIN 325 MG TAB PO SCH (08:48)
[2022-10-11] MEDS: METOPROLOL TARTRATE 50 MG TAB PO SCH ×2 (08:48→20:07)
[2022-10-11] MEDS: PANTOPRAZOLE 40 MG TABLET PO SCH (08:48)
[2022-10-11] MEDS: ISOSORBIDE MONONITRATE ER 30 MG TAB.ER.24H PO SCH (08:49)
[2022-10-11] MEDS: lisinopriL 5 MG TAB PO SCH (08:49)
[2022-10-11] MEDS: HYDROXYCHLOROQUINE SULFATE 200 MG TAB PO SCH ×2 (08:49→20:07)
[2022-10-11 12:04] LABS: Glucose,Whole Blood 72 mg/dL (70-110)
--- NOTE | 2022-10-11 14:22 | P.DS ---
Providers Date of admission: 10/09/22 18:54 Expected date of discharge: 10/11/22 Attending physician: Raúl Estrada MD Consults: 10/09/22 18:52 Consult Physician Urgent Consulting Provider: Ar Edge Consult Reason/Comments: Left knee surgical wound infection Do you want consulting provider notified?: Yes Consult Physician Urgent Consulting Provider: Jose M Real Consult Reason/Comments: Left knee surgical wound infection Do you want consulting provider notified?: Yes Primary care physician: [facility] Course: Patient is a 67-year-old female with PMH of hypertension, CAD, COPD, GERD, history of CVA, hypertension, dyslipidemia, rheumatoid arthritis with history of left knee surgery presented to the ED for bilateral swelling and redness of her feet along with a draining wound over her left knee. In the ED, she was noted to be tachycardic with heart rate in the 90s. Vital signs were otherwise stable. She was afebrile. CBC showed hemoglobin of 9.9. CMP showed sodium 135, potassium of 3.2, BUN of 18, glucose is 66, calcium is 7.7 and albumin of 2.8. The x-ray showed small joint effusion and prosthesis. Foot x-ray was negative. Patient was admitted for further management of her symptoms. 10/10 Patient was seen and examined. No acute events overnight. She reports improving erythema of her bilateral feet. She continues to report pain and swelling in her left knee. She denies any chest pain, shortness breath or palpitations. No nausea or vomiting. No fever or chills. CBC this morning shows hemoglobin of 9. BMP shows chloride of 108, glucose is 68 him a calcium of 7.4 and albumin of 2.6. Wound and blood cultures pending. Orthopedic surgery has been consulted. 10/11 Patient was seen and examined. Bilateral foot erythema has improved considerably. Dr. Edge evaluated the patient and recommends transfer to [facility] under Dr. Bowling for higher level of care. [facility] transfer center was called and I am waiting for a call back at the time of this note. Renal function within normal limits. Vancomycin IV switched to Cefazolin 2g IV TID as per ID recommendations. Pertinent studies and procedures as above. General: non toxic, no distress, appears at stated age Derm: warm, dry Head: atraumatic, normocephalic, symmetric Eyes: EOMI, no lid lag, anicteric sclera Cardiovascular: S1S2 reg, + murmur Lungs: Decreased breath sounds bilateral, no rhonchi, no rales , no accessory muscle use Ext: no gross muscle atrophy, no edema, no contractures, erythema of the distal foot bilaterally (improved), left knee swelling with purulent drainage and reduced ROM due to pain. Neuro: no focal neuro deficits Psych: Alert, oriented, appropriate affect Discharge Diagnosis: MRSA infection of the left knee Bilateral foot cellulitis Normocytic anemia Hypoglycemia Chronic conditions: Hypertension, CAD, COPD, GERD, history of CVA, hypertension, dyslipidemia, rheumatoid arthritis Anticipate transfer to [facility] when bed is available. This complex discharge took 35 minutes to complete. Patient Condition at Discharge: Stable Plan - Discharge Summary Discharge Rx Participant: No New Discharge Prescriptions: No Action Isosorbide Mononitrate [Imdur] 30 mg PO DAILY Metoprolol Tartrate [Lopressor] 50 mg PO BID Omeprazole 20 mg PO DAILY traZODone HCL 50 mg PO HS Citalopram Hydrobromide [CeleXA] 40 mg PO DAILY Atorvastatin [Lipitor] 80 mg PO HS Albuterol Inhaler [Ventolin Hfa Inhaler] 2 puff INHALATION RT-Q6H PRN PRN Reason: Shortness Of Breath Acetaminophen [Tylenol Arthritis] 650 mg PO Q6H PRN PRN Reason: Pain Collagenase [Santyl Ointment] 1 applic TOPICAL DAILY Aspirin 325 mg PO DAILY #30 tab Celecoxib [CeleBREX] 200 mg PO BID Hydroxychloroquine Sulfate [Plaquenil] 200 mg PO BID lisinopriL [Zestril] 5 mg PO DAILY Discharge Medication List Isosorbide Mononitrate [Imdur] 30 mg PO DAILY 11/22/13 [History] Metoprolol Tartrate [Lopressor] 50 mg PO BID 01/19/17 [History] Omeprazole 20 mg PO DAILY 01/19/17 [History] Citalopram Hydrobromide [CeleXA] 40 mg PO DAILY 02/26/19 [History] traZODone HCL 50 mg PO HS 02/26/19 [History] Atorvastatin [Lipitor] 80 mg PO HS 04/26/21 [History] Acetaminophen [Tylenol Arthritis] 650 mg PO Q6H PRN 05/19/22 [History] Albuterol Inhaler [Ventolin Hfa Inhaler] 2 puff INHALATION RT-Q6H PRN 05/19/22 [History] Aspirin 325 mg PO DAILY #30 tab 05/22/22 [Rx] Celecoxib [CeleBREX] 200 mg PO BID 10/09/22 [History] Collagenase [Santyl Ointment] 1 applic TOPICAL DAILY 10/09/22 [History] Hydroxychloroquine Sulfate [Plaquenil] 200 mg PO BID 10/09/22 [History] lisinopriL [Zestril] 5 mg PO DAILY 10/09/22 [History] Follow up Appointment(s)/Referral(s): Olivier Trinidad DO [Primary Care Provider] - 1-2 days
--- NOTE | 2022-10-11 15:32 | P.PN ---
Subjective Progress Note Date: 10/11/22 Principal diagnosis: Left knee infection Patient seen at bedside this morning lying semirecumbent position dressing over left knee. Patient does currently have drainage from the proximal portion of the incision on left knee. Patient does have some pain with ambulation. Patient also mentions she is having pain in the right foot as there is redness and a wound over the dorsum of the right foot. Patient does have some pain during ambulation of the left knee. Patient mentions about 2 weeks ago she was having some noticeable drainage and over the past 2 weeks progressed and gotten worse. Patient denies chest pain, fever, shortness breath, nausea, vomiting, change in vision, loss of bowel/bladder control. Objective - Vital Signs Vital signs: Vital Signs Temp 99.2 F 10/11/22 07:25 Pulse 70 10/11/22 07:55 Resp 17 10/11/22 07:25 BP 146/74 10/11/22 07:25 Pulse Ox 96 10/11/22 07:25 FiO2 Intake & Output 10/10/22 10/11/22 10/11/22 18:59 06:59 18:59 Other: Voiding Method Toilet Bedpan # Voids 1 2 1 - Exam Draining wound from the proximal left knee. positive for purulence. - Labs CBC & Chem 7: 10/10/22 06:28 10/11/22 05:52 Labs: Abnormal Lab Results - Last 24 Hours (Table) 10/10/22 10/10/22 10/11/22 Range/Units 17:21 20:43 07:24 POC Glucose (mg/dL) 178 H 113 H (70-110) mg/dL Urine Protein 1+ H (Negative) Urine Bacteria Rare H (None) /hpf Microbiology - Last 24 Hours (Table) 10/09/22 17:31 Blood Culture - Preliminary Blood 10/09/22 17:45 Blood Culture - Preliminary Blood 10/09/22 17:31 Gram Stain - Preliminary Knee - Left Wound Culture - Preliminary Strep agalactiae - (group b) Assessment and Plan Assessment: 1. Deep left knee infection 2. History of multiple recent left knee surgeries Plan: 1. Keep left knee infection - Dr. Edge was available this morning to talk with the patient and discussed plan of care. At this time due to patient's history of left knee infections and recent surgeries of left knee we are recommending and planning for patient to be transferred to [facility]. We have discussed with Zackary Bowling from [facility] who will accept transfer. Medicine is working on transfer now. Medicine contacting [facility] ortho resident. Pain medication as needed. Patient is okay to weight-bear as tolerated with walker and assistance. We'll continue to be available as needed. 2. Appreciate medical management 3. Pain management - Tylenol 4. DVT prophylaxis - aspirin 5. GI prophylaxis - Protonix 6. PT/OT - weightbearing as tolerated with walker and assistance Time with Patient: Less than 30
[2022-10-11] MEDS: traZODone HCL 50 MG TAB PO SCH (20:07)
[2022-10-11] MEDS: ATORVASTATIN 80 MG TAB PO SCH (20:07)
[2022-10-11 20:34] VITALS: BP 118/71; PULSE 71; RESP 18; TEMP 99.1
[2022-10-11 21:16] LABS: Glucose,Whole Blood 173 mg/dL (70-110)
== END 2022-10-11 22:51 | disposition short-term general hospital (02) | DRG 863 ==
LOC: EC 15:58 → 5NMEDONC 18:54
PROVIDERS: ADMIT Family Medicine; ATTEND Family Medicine
DX: T81.41XA Infection following a procedure, superficial incisional surgical site, initial encounter (principal); M00.062 Staphylococcal arthritis, left knee; L03.116 Cellulitis of left lower limb; L03.115 Cellulitis of right lower limb; B95.62 Methicillin resistant Staphylococcus aureus infection as the cause of diseases classified elsewhere; E87.6 Hypokalemia; I25.10 Atherosclerotic heart disease of native coronary artery without angina pectoris; E78.5 Hyperlipidemia, unspecified; M06.9 Rheumatoid arthritis, unspecified; E11.621 Type 2 diabetes mellitus with foot ulcer; L97.519 Non-pressure chronic ulcer of other part of right foot with unspecified severity; M41.9 Scoliosis, unspecified; J44.9 Chronic obstructive pulmonary disease, unspecified; K21.9 Gastro-esophageal reflux disease without esophagitis; D64.9 Anemia, unspecified; E11.649 Type 2 diabetes mellitus with hypoglycemia without coma; I10 Essential (primary) hypertension; B19.20 Unspecified viral hepatitis C without hepatic coma; G89.29 Other chronic pain; L30.9 Dermatitis, unspecified; Z86.73 Personal history of transient ischemic attack (TIA), and cerebral infarction without residual deficits; Z53.09 Procedure and treatment not carried out because of other contraindication; Z98.42 Cataract extraction status, left eye; Z98.41 Cataract extraction status, right eye; Z87.440 Personal history of urinary (tract) infections; Z88.5 Allergy status to narcotic agent; Z79.1 Long term (current) use of non-steroidal anti-inflammatories (NSAID); Z79.82 Long term (current) use of aspirin; Z79.899 Other long term (current) drug therapy; Z80.1 Family history of malignant neoplasm of trachea, bronchus and lung; Z87.11 Personal history of peptic ulcer disease; Z86.14 Personal history of Methicillin resistant Staphylococcus aureus infection; Z87.891 Personal history of nicotine dependence; Z96.652 Presence of left artificial knee joint; Z85.41 Personal history of malignant neoplasm of cervix uteri; Z95.1 Presence of aortocoronary bypass graft; Z98.51 Tubal ligation status; Z82.49 Family history of ischemic heart disease and other diseases of the circulatory system
CPT/HCPCS: 36415; 80053; 81001; 82565; 83605; 85025; 87040; 87070; 87075; 87077; 87186; 87205; 94640; 96365; 96366; 96375; 99284

== ENCOUNTER 2022-11-17 14:39 | Inpatient (IN) | payer MEDICARE, OTHER ==
--- NOTE | 2022-11-17 15:18 | ED ---
URI HPI - General Chief Complaint: Upper Respiratory Infection Stated Complaint: SOB Time Seen by Provider: 11/17/22 14:40 Source: patient, EMS, RN notes reviewed Mode of arrival: EMS Limitations: no limitations, physical limitation - History of Present Illness Initial Comments: 67-year-old female history of COPD history of a left knee infection status post knee replacement she is a former smoker history of bypass surgery and coronary artery disease in the past hypertension CVA who [facility] with complaints of having a fever today shortness breath with intermittent cough but it's productive of clear phlegm. She was told they believe she has pneumonia. She normally does not use oxygen at home but has been on 2 L of o xygen is maintaining a saturation 91-92%. No complaints chest pain abdominal pain she believes her knee infection is getting better. No palpitations no other current complaints or modifying factors MD Complaint: fever, cough - Related Data Home Medications Medication Instructions Recorded Confirmed Isosorbide Mononitrate [Imdur] 30 mg PO DAILY 11/22/13 11/17/22 Metoprolol Tartrate [Lopressor] 50 mg PO BID 01/19/17 11/17/22 Omeprazole 20 mg PO DAILY 01/19/17 11/17/22 traZODone HCL 50 mg PO HS 02/26/19 11/17/22 Acetaminophen [Tylenol Arthritis] 650 mg PO Q4H PRN 05/19/22 11/17/22 Hydroxychloroquine Sulfate 200 mg PO BID 10/09/22 11/17/22 [Plaquenil] Albuterol Nebulized [Ventolin 2.5 mg INHALATION RT-Q4H PRN 11/17/22 11/17/22 Nebulized] Ascorbic Acid [Vitamin C] 1,000 mg PO DAILY 11/17/22 11/17/22 Aspirin EC [Ecotrin Low Dose] 81 mg PO DAILY 11/17/22 11/17/22 Atorvastatin [Lipitor] 10 mg PO HS 11/17/22 11/17/22 Azithromycin [Zithromax] 500 mg PO DAILY 11/17/22 11/17/22 Budesonide [Pulmicort] 1 mg INHALATION RT-DAILY 11/17/22 11/17/22 Citalopram Hydrobromide [CeleXA] 20 mg PO DAILY 11/17/22 11/17/22 DAPTOmycin [Cubicin] 500 mg IV DAILY 11/17/22 11/17/22 Diclofenac Sodium [Voltaren 1 gm TOPICAL QID@08,12,16,20 11/17/22 11/17/22 Arthritis Pain 1% Gel] Ergocalciferol (Vitamin D2) 1,250 mcg PO TU 11/17/22 11/17/22 [Drisdol (50,000 Iu)] Ferrous Sulfate [Feosol] 325 mg PO DAILY 11/17/22 11/17/22 Healthshake 1 dose PO BID-W/MEALS 11/17/22 11/17/22 Heparin Sodium,Porcine (1 ml) 5,000 unit SQ TID@0500,1300,2100 11/17/22 11/17/22 [Heparin Sodium] Ipratropium-Albuterol Nebulize 3 ml INHALATION RT-QID@05,,,11/17/22 11/17/22 [Duoneb 0.5 mg-3 mg/3 ml Soln] Quercetin 500 mg PO DAILY 11/17/22 11/17/22 Sennosides [Senokot] 8.6 mg PO BID 11/17/22 11/17/22 Zinc Gluconate [Zinc] 25 mg PO DAILY 11/17/22 11/17/22 guaiFENesin [guaiFENesin Oral 400 mg PO Q4H PRN 11/17/22 11/17/22 Solution] lisinopriL [Prinivil] 10 mg PO DAILY 11/17/22 11/17/22 oxyCODONE HCL [OxyIR] 5 mg PO Q4H PRN 11/17/22 11/17/22 Allergies Allergy/AdvReac Type Severity Reaction Status Date / Time codeine AdvReac Nausea & Verified 11/17/22 15:24 Vomiting Review of Systems ROS Statement: Those systems with pertinent positive or pertinent negative responses have been documented in the HPI. ROS Other: All systems not noted in ROS Statement are negative. Past Medical History Past Medical History: Coronary Artery Disease (CAD), Cancer, Chest Pain / Angina, COPD, CVA/TIA, GERD/Reflux, Hyperlipidemia, Hypertension, Osteoarthritis (OA), Rheumatoid Arthritis (RA), Skin Disorder, Vascular Disorder Additional Past Medical History / Comment(s): chronic back pain., scoliosis., heart murmur, SOB w/activity, hx of gastric ulcer, cervical cancer, eczema, TIA-no residuals., frequent diarrhea., hepatitis C with tx,hamlet cataracts, left knee replaced recently-not healing well per pt, lot of pain, recent cataract surg. History of Any Multi-Drug Resistant Organisms: MRSA Date of last positivie culture/infection: 10/09/22 MDRO Source:: lt foot/knee Past Surgical History: Section, Cholecystectomy, Coronary Bypass/CABG, Heart Catheterization, Heart Catheterization With Stent, Joint Replacement, Orthopedic Surgery, Tubal Ligation Additional Past Surgical History / Comment(s): triple CABG 2008, ORIF right leg, ., heart cath with stent 2013(Mph)., heart cath no stent (2019). left knee replaced 03-15-22, tip fib screws Past Anesthesia/Blood Transfusion Reactions: No Reported Reaction Date of Last Stent Placement:: 2013 Past Psychological History: Anxiety, Depression Smoking Status: Never smoker Past Alcohol Use History: None Reported Past Drug Use History: None Reported - Past Family History Father Family Medical History: Cancer, Dementia Additional Family Medical History / Comment(s): AT AGE 84-LUNG CANCER. Mother Family Medical History: Coronary Artery Disease (CAD) Additional Family Medical History / Comment(s): AT AGE 73. Brother(s) Family Medical History: Cancer General Exam - General Exam Comments Initial Comments: This is a well-developed frail-appearing female who is awake alert oriented 4 Limitations: no limitations, physical limitation General appearance: alert Head exam: Present: atraumatic, normocephalic, normal inspection Eye exam: Present: normal appearance, PERRL, EOMI. Absent: scleral icterus, conjunctival injection, periorbital swelling ENT exam: Present: normal exam, mucous membranes moist Neck exam: Present: normal inspection, full ROM, other. Absent: tenderness, meningismus, lymphadenopathy Respiratory exam: Present: decreased breath sounds, other (Bilateral crackles decreased breath sounds basilar crepitance bilaterally). Absent: respiratory distress, wheezes, rales, rhonchi, stridor Cardiovascular Exam: Present: regular rate, normal rhythm, normal heart sounds. Absent: systolic murmur, diastolic murmur, rubs, gallop, clicks GI/Abdominal exam: Present: soft, normal bowel sounds. Absent: distended, tenderness, guarding, rebound, rigid Extremities exam: Present: full ROM, normal capillary refill, other (I did examine the left lower extremity and knee had did remove the face no evidence of infectious process at this time no drainage no tenderness palpation no inc reased localized temperature). Absent: tenderness, pedal edema, joint swelling, calf tenderness Back exam: Present: normal inspection Neurological exam: Present: alert, oriented X3, CN II-XII intact Psychiatric exam: Present: normal affect, normal mood Skin exam: Present: warm, dry, intact, normal color. Absent: rash Course Vital Signs 11/17/22 14:40 Temperature 99.8 F H Pulse Rate 80 Respiratory 20 Rate Blood Pressure 125/60 O2 Sat by Pulse 97 Oximetry Medical Decision Making - Medical Decision Making I did reevaluate the patient multiple occasions she does demonstrate evidence of CHF with increased markings on her x-ray more so on the right than the left elevated BNP of 7300+. Likely a component of COPD. I did discuss case with Dr. kaylee nowak who did come see the patient in emergency department. CT of the chest was done and read by me no evidence of pulmonary embolism the above findings were read demonstrate a CAT scan with increased pulmonary vascular markings. Patient be admittedWas pt. sent in by a medical professional or institution (, PA, PLASTIC PANEL INSTALLER, urgent care, hospital, or prison...) When possible be specific @ -No Did you speak to anyone other than the patient for history (EMS, parent, family, police, friend...)? What history was obtained from this source @ -No Did you review nursing and triage notes (agree or disagree)? Why? @ -I reviewed and agree with nursing and triage notes Were old charts reviewed (outside hosp., previous admission, EMS record, old EKG, old radiological studies, urgent care reports/EKG's, prison records)? Report findings @ -halfway old charts were reviewed Differential Diagnosis (chest pain, altered mental status, abdominal pain women, abdominal pain men, vaginal bleeding, weakness, fever, dyspnea, syncope, headache, dizziness, GI bleed, back pain, seizure, CVA, palpatations, mental health, musculoskeletal)? @ -COPD, CHF, bronchospasm EKG interpreted by me (3pts min.). @ -As above interpreted by me normal sinus rhythm a 78. Interval 143 QRS duration 81 daily since QTC 424/458 old septal changes. No acute ST-T wave changes X-rays interpreted by me (1pt min.). @ -Interpreted by me increased pulmonary as are markings right greater than left] CT interpreted by me (1pt min.). @ -Interpreted by me no evidence of PE U/S interpreted by me (1pt. min.). @ -None done What testing was considered but not performed or refused? (CT, X-rays, U/S, labs)? Why? @ -None What meds were considered but not given or refused? Why? @ -None Did you discuss the management of the patient with other professionals (professionals i.e. DrYenny, PA, PLASTIC PANEL INSTALLER, lab, RT, psych nurse, social media developer, business lawyer, teacher, contracts officer, cyanide case hardener)? Give summary @ -Dr. Gomez Was smoking cessation discussed for >3mins.? @ -No Was critical care preformed (if so, how long)? @ -31 minutes Were there social determinants of health that impacted care today? How? (Homelessness, low income, unemployed, alcoholism, drug addiction, transportation, low edu. Level, literacy, decrease access to med. care, [facility], rehab)? @ -No Was there de-escalation of care discussed even if they declined (Discuss DNR or withdrawal of care, Hospice)? DNR status @ -No What co-morbidities impacted this encounter? (DM, HTN, Smoking, COPD, CAD, Cancer, CVA, ARF, Chemo, Hep., AIDS, mental health diagnosis, sleep apnea, mo rbid obesity)? @ -COPD, CAD left knee infection Was patient admitted / discharged? Hospital course, mention meds given and route, prescriptions, significant lab abnormalities, going to OR and other pertinent info. @ -hospital course she was admitted for inpatient evaluation treatment of CHF Undiagnosed new problem with uncertain prognosis? @ -No Drug Therapy requiring intensive monitoring for toxicity (Heparin, Nitro, Insulin, Cardizem)? @ -No Were any procedures done? @ -No Diagnosis/symptom? @ -Acute CHF, COPD Acute, or Chronic, or Acute on Chronic? @ -[Acute] Uncomplicated (without systemic symptoms) or Complicated (systemic symptoms)? @ -[Applicator did] Side effects of treatment? @ -[No] Exacerbation, Progression, or Severe Exacerbation? @ -[No] Poses a threat to life or bodily function? How? (Chest pain, [place], [place], pneumonia, PE, COPD, DKA, ARF, appy, cholecystitis, CVA, Diverticulitis, Homicidal, Suic idal, threat to staff... and all critical care pts) @ -[CHF] - Lab Data Result diagrams: 11/17/22 15:27 11/17/22 15:27 Lab Results 11/17/22 11/17/22 11/17/22 Range/Units 15:27 15:27 15:27 WBC 11.7 H (3.8-10.6) k/uL RBC 3.19 L (3.80-5.40) m/uL Hgb 8.6 L (11.4-16.0) gm/dL Hct 28.5 L (34.0-46.0) % MCV 89.4 (80.0-100.0) fL MCH 27.1 (25.0-35.0) pg MCHC 30.3 L (31.0-37.0) g/dL RDW 17.0 H (11.5-15.5) % Plt Count 517 H D (150-450) k/uL MPV 7.1 Neutrophils % 70 % Lymphocytes % 7 % Monocytes % 3 % Eosinophils % 19 % Basophils % 0 % Neutrophils # 8.1 H (1.3-7.7) k/uL Lymphocytes # 0.8 L (1.0-4.8) k/uL Monocytes # 0.3 (0-1.0) k/uL Eosinophils # 2.2 H (0-0.7) k/uL Basophils # 0.0 (0-0.2) k/uL Hypochromasia Marked Poikilocytosis Slight Anisocytosis Slight PT 11.3 (9.0-12.0) sec INR 1.1 (<1.2) APTT 28.8 (22.0-30.0) sec D-Dimer 3.68 H (<0.60) mg/L FEU Sodium 133 L (137-145) mmol/L Potassium 4.4 (3.5-5.1) mmol/L Chloride 106 (98-107) mmol/L Carbon Dioxide 20 L (22-30) mmol/L Anion Gap 7 mmol/L BUN 14 (7-17) mg/dL Creatinine 0.64 (0.52-1.04) mg/dL Est GFR (CKD-EPI)AfAm >90 (>60 ml/min/1.73 sqM) Est GFR (CKD-EPI)NonAf >90 (>60 ml/min/1.73 sqM) Glucose 103 H (74-99) mg/dL Plasma Lactic Acid Anand (0.7-2.0) mmol/L Calcium 8.4 (8.4-10.2) mg/dL Magnesium 1.5 L (1.6-2.3) mg/dL Total Bilirubin 0.3 (0.2-1.3) mg/dL AST 35 (14-36) U/L ALT 21 (4-34) U/L Alkaline Phosphatase 128 H (38-126) U/L Troponin I (0.000-0.034) ng/mL NT-Pro-B Natriuret Pep 7310 pg/mL Total Protein 6.3 (6.3-8.2) g/dL Albumin 2.6 L (3.5-5.0) g/dL Influenza Type A (PCR) (Not Detectd) Influenza Type B (PCR) (Not Detectd) RSV (PCR) (Not Detectd) SARS-CoV-2 (PCR) (Not Detectd) 11/17/22 11/17/22 11/17/22 Range/Units 15:27 15:27 15:27 WBC (3.8-10.6) k/uL RBC (3.80-5.40) m/uL Hgb (11.4-16.0) gm/dL Hct (34.0-46.0) % MCV (80.0-100.0) fL MCH (25.0-35.0) pg MCHC (31.0-37.0) g/dL RDW (11.5-15.5) % Plt Count (150-450) k/uL MPV Neutrophils % % Lymphocytes % % Monocytes % % Eosinophils % % Basophils % % Neutrophils # (1.3-7.7) k/uL Lymphocytes # (1.0-4.8) k/uL Monocytes # (0-1.0) k/uL Eosinophils # (0-0.7) k/uL Basophils # (0-0.2) k/uL Hypochromasia Poikilocytosis Anisocytosis PT (9.0-12.0) sec INR (<1.2) APTT (22.0-30.0) sec D-Dimer (<0.60) mg/L FEU Sodium (137-145) mmol/L Potassium (3.5-5.1) mmol/L Chloride (98-107) mmol/L Carbon Dioxide (22-30) mmol/L Anion Gap mmol/L BUN (7-17) mg/dL Creatinine (0.52-1.04) mg/dL Est GFR (CKD-EPI)AfAm (>60 ml/min/1.73 sqM) Est GFR (CKD-EPI)NonAf (>60 ml/min/1.73 sqM) Glucose (74-99) mg/dL Plasma Lactic Acid Anand 1.7 (0.7-2.0) mmol/L Calcium (8.4-10.2) mg/dL Magnesium (1.6-2.3) mg/dL Total Bilirubin (0.2-1.3) mg/dL AST (14-36) U/L ALT (4-34) U/L Alkaline Phosphatase (38-126) U/L Troponin I <0.012 (0.000-0.034) ng/mL NT-Pro-B Natriuret Pep pg/mL Total Protein (6.3-8.2) g/dL Albumin (3.5-5.0) g/dL Influenza Type A (PCR) Not Detected (Not Detectd) Influenza Type B (PCR) Not Detected (Not Detectd) RSV (PCR) Not Detected (Not Detectd) SARS-CoV-2 (PCR) Not Detected (Not Detectd) - EKG Data -: EKG Interpreted by Me EKG Comments: EKG interpreted by me's heart rate 78. Interval 143 QRS duration 81 daily since QTC 424/458 evidence of old septal changes. Critical Care Time Critical Care Time: Yes Total Critical Care Time: 31 Disposition Clinical Impression: Acute CHF, COPD (chronic obstructive pulmonary disease), Febrile illness, acute Disposition: ADMITTED IP TO THIS [facility] Condition: Fair Referrals: Olivier Trinidad DO [Primary Care Provider] - 1-2 days Decision Date: 11/17/22 Decision Time: 17:00
--- NOTE | 2022-11-17 15:36 | XR ---
EXAMINATION TYPE: XR chest 2V DATE OF EXAM: 11/17/2022 COMPARISON: 08/24/2019 INDICATION: Not feeling well TECHNIQUE: Frontal and lateral views of the chest are obtained. FINDINGS: The heart size is normal. The pulmonary vasculature is increased. Diffuse increased lung markings are present bilaterally. Correlate for pulmonary edema.. IMPRESSION: 1. Clinical correlation recommended for pulmonary edema. Follow-up is recommended.
[2022-11-17 16:06] LABS: Anisocytosis Slight; Basophils % (A) 0 %; Eosinophils # (A) 2.2 k/uL (0-0.7); Eosinophils % (A) 19 %; HCT 28.5 % (34.0-46.0); HGB 8.6 gm/dL (11.4-16.0); Hypochromasia Marked; Lymphocytes # (A) 0.8 k/uL (1.0-4.8); Lymphocytes % (A) 7 %; MCH 27.1 pg (25.0-35.0); MCHC 30.3 g/dL (31.0-37.0); MCV 89.4 fL (80.0-100.0); Mean Platelet Volume 7.1; Monocytes # (A) 0.3 k/uL (0-1.0); Monocytes % (A) 3 %; Neutrophils # (A) 8.1 k/uL (1.3-7.7); Neutrophils % (A) 70 %; Poikilocytosis Slight; RBC 3.19 m/uL (3.80-5.40); WBC 11.7 k/uL (3.8-10.6)
[2022-11-17 16:12] LABS: Platelet Count 517 k/uL (150-450)
[2022-11-17 16:14] LABS: ALT 21 U/L (4-34); AST 35 U/L (14-36); African American GFR (CKD) >90 (>60 ml/min/1.73 sqM); Albumin 2.6 g/dL (3.5-5.0); Alkaline Phosphatase 128 U/L (38-126); Anion Gap 7 mmol/L; Blood Urea Nitrogen 14 mg/dL (7-17); Calcium 8.4 mg/dL (8.4-10.2); Carbon Dioxide 20 mmol/L (22-30); Chloride 106 mmol/L (98-107); Glucose 103 mg/dL (74-99); Magnesium 1.5 mg/dL (1.6-2.3); Non-African American GFR(CKD) >90 (>60 ml/min/1.73 sqM); Potassium 4.4 mmol/L (3.5-5.1); Sodium 133 mmol/L (137-145); Total Bilirubin 0.3 mg/dL (0.2-1.3); Total Protein 6.3 g/dL (6.3-8.2)
[2022-11-17 16:16] LABS: INR 1.1 (<1.2); Partial Thromboplastin Time 28.8 sec (22.0-30.0); Prothrombin Time 11.3 sec (9.0-12.0)
[2022-11-17 16:22] LABS: NT-Pro-B-Type Natriuretic Pept 7310 pg/mL
[2022-11-17] MEDS ORDERED: FUROSEMIDE 10 MG/ML 4 ML VIAL IV STA (16:26)
[2022-11-17] MEDS ORDERED: MAGNESIUM SULFATE-D5W PMX 1 GM in DEXTROSE/WATER 1 100ML.BAG IVPB ONE (16:39)
[2022-11-17] MEDS ORDERED: IPRATROPIUM-ALBUTEROL 3 ML NEB INHALATION STA (16:41)
--- NOTE | 2022-11-17 17:45 | CT ---
CT CHEST FOR PULMONARY EMBOLISM. EXAMINATION TYPE: CT angio chest DATE OF EXAM: 11/17/2022 INDICATION: PE suspected abnormal chest x-ray CT DLP: 224 mGycm, Automated exposure control for dose reduction was used. CONTRAST: Patient injected with Isovue-300. COMPARISON: None TECHNIQUE: CT of the chest is performed on a spiral scan at 2 mm thick sections. Study is performed with intravenous contrast timed for evaluation for pulmonary embolism. This will limit additional po rtions of the evaluation. 3-D MIP images reconstructed by the technologist are reviewed on the compu ter in the coronal and sagittal planes. FINDINGS: No persistent filling defects are evident to suggest an acute pulmonary embolism. 1.2 cm right infrahilar node may be present. The ascending aorta diameter at the level of the main p ulmonary artery is 3.0 cm. The main pulmonary artery diameter at the bifurcation is 2.8 cm. There is extensive increased lung markings bilateral lung shah. Correlate for2 pulmonary fibrosis. Differential diagnosis should include neoplasm and pneumonia. There are some scattered infiltrates in the right mid lung field. Atypical pneumonia is not excluded. Limited CT section through the upper abdomen. There is a 1.3 cm enlarged left adrenal gland. IMPRESSION: 1. No acute pulmonary embolism. 2. Pulmonary fibrosis. Differential diagnosis includes pneumonia, atypical and neoplasm. Follow-up ch est findings are recommended.
[2022-11-17] MEDS ORDERED: ONDANSETRON 4 MG/2 ML VIAL IVP PRN (18:05)
[2022-11-17] MEDS ORDERED: MELATONIN 3 MG TABLET PO PRN (18:05)
[2022-11-17] MEDS ORDERED: NALOXONE 0.4 MG/ML 1 ML VIAL IV PRN (18:05)
[2022-11-17] MEDS ORDERED: ALBUTEROL NEBULIZED 2.5 MG/3 ML INHALATION PRN (18:08)
[2022-11-17] MEDS ORDERED: guaiFENesin SYRUP 100MG/5ML 200 MG/10 ML CUP PO PRN (18:08)
--- NOTE | 2022-11-17 18:17 | P.HPIM ---
History of Present Illness H&P Date: 11/17/22 Patient is a 67-year-old female with PMH of hypertension, CAD, COPD, GERD, history of CVA, hypertension, dyslipidemia, rheumatoid arthritis with history of left knee surgery and admission on 10/09 for septic arthritis requiring transfer to [facility] where she underwent orthopedic surgery and discharged to [facility] on IV antibiotics is sent from [facility] for hypoxia and fever. Patient states that she is generally feeling well. She reports a cough productive of clear sputum. She denies any shortness of breath. States that she has been on oxygen since her discharge from [facility]. She denies any headache, lower extremity edema, nausea or vomiting, fever or chills, chest pain, palpitations, changes in urination or bowel habits. No changes in appetite or weight. She denies any dizziness, numbness/weakness/tingling of the extremities. In the ED, she had a T-max of 99.8 Fahrenheit. She was saturating 97% on 2 L nasal cannula. Vital signs otherwise stable. CBC showed WBC count of 11.7, hemoglobin of 8.6 and platelet count of 517. INR was 1.1. D-dimer 3.68. CMP showed sodium 133, bicarb 20, glucose 103, alkaline phosphatase 128, albumin 2.6. Magnesium 1.5. Troponin less than 0.012. Lactic acid 1.7. BNP 7310. COVID-19, RSV, influenza negative. Chest x-ray showed findings of pulmonary edema. CTA chest was done which showed no PE, pulmonary fibrosis. Patient is admitted for fever and hypoxia. Pertinent positives and negatives as discussed in HPI, a complete review of systems was performed and all other systems are negative. General: non toxic, no distress, appears at stated age Derm: warm, dry Head: atraumatic, normocephalic, symmetric Eyes: EOMI, no lid lag, anicteric sclera Mouth: no lip lesion, mucus membranes moist Cardiovascular: S1S2 reg, + murmur, positive posterior tibial pulse bilateral, Lungs: Decreased breath sounds bilateral, no rhonchi, no rales , no accessory muscle use Abdominal: soft, nontender to palpation, no guarding, no appreciable organomegaly Ext: no gross muscle atrophy, no edema, no contractures, left knee braced Neuro: no focal neuro deficits Psych: Alert, oriented, appropriate affect Acute hypoxic respiratory failure likely secondary to combination of COPD exacerbation and diastolic CHF exacerbation Low grade fever Leukocytosis Elevated d-dimer Hyponatremia Hypomagnesemia Normocytic anemia with thrombocytosis Chronic conditions: Hypertension, CAD, COPD, GERD, history of CVA, Hypertension, Dyslipidemia, Rheumatoid arthritis with history of Septic arthritis Based on my assessment of this patient, this patient meets a high complexity level of care. Patient has an acute diagnosis of acute hypoxic respiratory failure with CTA chest showing pulmonary fibrosis and possible atypical pneumonia that poses a threat to life or bodily function. Patient is immunocompromise given her history of RA and hydroxychloroquine use. Acute hypoxic respiratory failure likely secondary to combination of COPD exacerbation and diastolic CHF exacerbation Start Lasix 40 mg IV QD. Intake/Outtake. Daily weights. DuoNeb 4 times a day scheduled and albuterol neb as needed for shortness of breath and wheezing. Restart Pulmicort. Robitussin as needed for cough. Azithromycin 500 mg PO QD for concerns of acute bronchitis. Telemetry monitoring. Cardiology and Pulmonology consulted. Echocardiogram ordered. Low grade fever: Flu, RSV, COVID 19 negative. Recent diagnosis of septic arthritis. Restart Daptomycin IV. Azithromycin for acute bronchitis. Leukocytosis Elevated d-dimer: CTA chest ruled out PE. Hyponatremia Hypomagnesemia: Mag sulfate 1g IV. Normocytic anemia with thrombocytosis Decision maker: Brother FULL CODE. Lovenox SQ for DVT prophylaxis. I have reviewed the following real estate listing consultant notes: I have reviewed the results of the following tests: CBC, CMP, Lactic acid, Trop, BNP, Mag, COVID, RSV, Flu, CTA chest I have ordered the following tests: Echo. CBC. BMP. I have discussed the care of this patient with the following independent historian: I have independently interpreted the following test below: CXR as above. I have discussed the management of this patient with the following physician: Past Medical History Past Medical History: Coronary Artery Disease (CAD), Cancer, Chest Pain / Angina, COPD, CVA/TIA, GERD/Reflux, Hyperlipidemia, Hypertension, Osteoarthritis (OA), Rheumatoid Arthritis (RA), Skin Disorder, Vascular Disorder Additional Past Medical History / Comment(s): chronic back pain., scoliosis., heart murmur, SOB w/activity, hx of gastric ulcer, cervical cancer, eczema, TIA-no residuals., frequent diarrhea., hepatitis C with tx,hamlet cataracts, left knee replaced recently-not healing well per pt, lot of pain, recent cataract surg. History of Any Multi-Drug Resistant Organisms: MRSA Date of last positivie culture/infection: 10/09/22 MDRO Source:: lt foot/knee Past Surgical History: Section, Cholecystectomy, Coronary Bypass/CABG, Heart Catheterization, Heart Catheterization With Stent, Joint Replacement, Orthopedic Surgery, Tubal Ligation Additional Past Surgical History / Comment(s): triple CABG 2008, ORIF right leg, ., heart cath with stent 2013(Mph)., heart cath no stent (2019). left knee replaced 03-15-22, tip fib screws Past Anesthesia/Blood Transfusion Reactions: No Reported Reaction Date of Last Stent Placement:: 2013 Past Psychological History: Anxiety, Depression Smoking Status: Never smoker Past Alcohol Use History: None Reported Past Drug Use History: None Reported - Past Family History Father Family Medical History: Cancer, Dementia Additional Family Medical History / Comment(s): AT AGE 84-LUNG CANCER. Mother Family Medical History: Coronary Artery Disease (CAD) Additional Family Medical History / Comment(s): AT AGE 73. Brother(s) Family Medical History: Cancer Medications and Allergies Home Medications Medication Instructions Recorded Confirmed Type Isosorbide Mononitrate [Imdur] 30 mg PO DAILY 11/22/13 11/17/22 History Metoprolol Tartrate [Lopressor] 50 mg PO BID 01/19/17 11/17/22 History Omeprazole 20 mg PO DAILY 01/19/17 11/17/22 History traZODone HCL 50 mg PO HS 02/26/19 11/17/22 History Acetaminophen [Tylenol Arthritis] 650 mg PO Q4H PRN 05/19/22 11/17/22 History Hydroxychloroquine Sulfate 200 mg PO BID 10/09/22 11/17/22 History [Plaquenil] Albuterol Nebulized [Ventolin 2.5 mg INHALATION RT-Q4H PRN 11/17/22 11/17/22 History Nebulized] Ascorbic Acid [Vitamin C] 1,000 mg PO DAILY 11/17/22 11/17/22 History Aspirin EC [Ecotrin Low Dose] 81 mg PO DAILY 11/17/22 11/17/22 History Atorvastatin [Lipitor] 10 mg PO HS 11/17/22 11/17/22 History Azithromycin [Zithromax] 500 mg PO DAILY 11/17/22 11/17/22 History Budesonide [Pulmicort] 1 mg INHALATION RT-DAILY 11/17/22 11/17/22 History Citalopram Hydrobromide [CeleXA] 20 mg PO DAILY 11/17/22 11/17/22 History DAPTOmycin [Cubicin] 500 mg IV DAILY 11/17/22 11/17/22 History Diclofenac Sodium [Voltaren 1 gm TOPICAL QID@08,12,16,20 11/17/22 11/17/22 History Arthritis Pain 1% Gel] Ergocalciferol (Vitamin D2) 1,250 mcg PO TU 11/17/22 11/17/22 History [Drisdol (50,000 Iu)] Ferrous Sulfate [Feosol] 325 mg PO DAILY 11/17/22 11/17/22 History Healthshake 1 dose PO BID-W/MEALS 11/17/22 11/17/22 History Heparin Sodium,Porcine (1 ml) 5,000 unit SQ TID@0500,1300,2100 11/17/22 11/17/22 History [Heparin Sodium] Ipratropium-Albuterol Nebulize 3 ml INHALATION RT-QID@05,,,11/17/22 11/17/22 History [Duoneb 0.5 mg-3 mg/3 ml Soln] Quercetin 500 mg PO DAILY 11/17/22 11/17/22 History Sennosides [Senokot] 8.6 mg PO BID 11/17/22 11/17/22 History Zinc Gluconate [Zinc] 25 mg PO DAILY 11/17/22 11/17/22 History guaiFENesin [guaiFENesin Oral 400 mg PO Q4H PRN 11/17/22 11/17/22 History Solution] lisinopriL [Prinivil] 10 mg PO DAILY 11/17/22 11/17/22 History oxyCODONE HCL [OxyIR] 5 mg PO Q4H PRN 11/17/22 11/17/22 History Allergies Allergy/AdvReac Type Severity Reaction Status Date / Time codeine AdvReac Nausea & Verified 11/17/22 15:24 Vomiting Physical Exam Vitals: Vital Signs Temp Pulse Resp BP Pulse Ox 11/17/22 14:40 99.8 F H 80 20 125/60 97 Intake and Output 11/17/22 11/17/22 11/17/22 06:59 14:59 22:59 Other: Weight 47.174 kg Results CBC & Chem 7: 11/17/22 15:27 11/17/22 15:27 Labs: Abnormal Lab Results - Last 24 Hours (Table) 11/17/22 11/17/22 11/17/22 Range/Units 15:27 15:27 15:27 WBC 11.7 H (3.8-10.6) k/uL RBC 3.19 L (3.80-5.40) m/uL Hgb 8.6 L (11.4-16.0) gm/dL Hct 28.5 L (34.0-46.0) % MCHC 30.3 L (31.0-37.0) g/dL RDW 17.0 H (11.5-15.5) % Plt Count 517 H D (150-450) k/uL Neutrophils # 8.1 H (1.3-7.7) k/uL Lymphocytes # 0.8 L (1.0-4.8) k/uL Eosinophils # 2.2 H (0-0.7) k/uL D-Dimer 3.68 H (<0.60) mg/L FEU Sodium 133 L (137-145) mmol/L Carbon Dioxide 20 L (22-30) mmol/L Glucose 103 H (74-99) mg/dL Magnesium 1.5 L (1.6-2.3) mg/dL Alkaline Phosphatase 128 H (38-126) U/L Albumin 2.6 L (3.5-5.0) g/dL
[2022-11-17] MEDS: IPRATROPIUM-ALBUTEROL 3 ML NEB INHALATION SCH (20:35)
[2022-11-17] MEDS: AZITHROMYCIN 500 MG TAB PO SCH (21:09)
[2022-11-17] MEDS: ATORVASTATIN 10 MG TAB PO SCH (22:27)
[2022-11-17] MEDS: SENNOSIDES 8.6 MG TAB PO SCH (22:27)
[2022-11-17] MEDS: HYDROXYCHLOROQUINE SULFATE 200 MG TAB PO SCH (22:27)
[2022-11-17] MEDS: METOPROLOL TARTRATE 50 MG TAB PO SCH (22:28)
[2022-11-17] MEDS: traZODone HCL 50 MG TAB PO SCH (22:28)
[2022-11-17] MEDS ORDERED: IPRATROPIUM-ALBUTEROL 3 ML NEB INHALATION SCH (23:00)
[2022-11-18 04:24] LABS: Anisocytosis Slight; Basophils % (A) 0 %; Eosinophils # (A) 1.9 k/uL (0-0.7); Eosinophils % (A) 15 %; HCT 26.2 % (34.0-46.0); HGB 8.1 gm/dL (11.4-16.0); Hypochromasia Marked; Lymphocytes % (A) 8 %; MCH 27.7 pg (25.0-35.0); MCHC 30.7 g/dL (31.0-37.0); Mean Platelet Volume 7.8; Monocytes # (A) 0.5 k/uL (0-1.0); Monocytes % (A) 4 %; Neutrophils % (A) 72 %; Platelet Count 480 k/uL (150-450); Poikilocytosis Slight; RBC 2.91 m/uL (3.80-5.40); RDW 16.6 % (11.5-15.5); WBC 12.5 k/uL (3.8-10.6)
[2022-11-18 04:38] LABS: African American GFR (CKD) >90 (>60 ml/min/1.73 sqM); Anion Gap 9 mmol/L; Blood Urea Nitrogen 15 mg/dL (7-17); Calcium 8.4 mg/dL (8.4-10.2); Carbon Dioxide 21 mmol/L (22-30); Chloride 102 mmol/L (98-107); Glucose 96 mg/dL (74-99); Magnesium 1.7 mg/dL (1.6-2.3); Non-African American GFR(CKD) 81 (>60 ml/min/1.73 sqM); Sodium 132 mmol/L (137-145)
[2022-11-18] MEDS: PANTOPRAZOLE 40 MG TABLET PO SCH (05:11)
[2022-11-18] MEDS: methylPREDNISolone SOD SUCCI 125 MG/2 ML VIAL IV SCH ×4 (05:11→20:12)
[2022-11-18 06:03] LABS: Glucose,Whole Blood 168 mg/dL (70-110)
[2022-11-18] MEDS: IPRATROPIUM-ALBUTEROL 3 ML NEB INHALATION SCH ×4 (08:02→20:58)
[2022-11-18] MEDS: BUDESONIDE 1 MG/2 ML NEBU INHALATION SCH (08:03)
--- NOTE | 2022-11-18 08:23 | P.CNPUL ---
History of Present Illness Consult date: 11/18/22 Requesting physician: Raúl Estrada Reason for consult: pulmonary fibrosis Chief complaint: Shortness of breath History of present illness: I am seeing this patient in consultation today 11/18/2022 after she was transferred from [facility] for shortness of breath and hypoxia. Jessica thomas is a 67-year-old white female with past medical history significant for left total knee replacement with recent admission for septic arthritis on October 09 and transferred to [facility], COPD, ex-smoker, coronary artery disease with previous CABG, aortic stenosis, peripheral arterial disease, GERD, CVA, hypertension, hyperlipidemia, and rheumatoid arthritis. Patient has been at [facility] for about one month, since her discharge from [facility]. She has been receiving IV antibiotics through a left arm PICC line. Cultures of the knee were positive for MRSA back on October 09, and the patient has been restarted on daptomycin. Knee hardware was reportedly removed. She has not walked since March. While at [facility], the patient has been progressively more short of breath, usually just during exertion. She has been on supplemental oxygen, which she previously did not need. She does have history of mild COPD with a baseline FEV1 72 % of predicted. She has seen Dr. Campos in the office before, but does not routinely follow. She does have significant smoking history of 1 pack per day for almost 50 years. Quit smoking 3 months ago. Yesterday afternoon, the patient was transferred to the emergency room for hypoxia and low-grade fever. Admits a chronic cough, mostly dry and nonproductive. Denies any chest pain, heart palpitations, lower extremity swelling, orthopnea. Chest x-ray on admission was concerning for asymmetric pulmonary edema. Follow-up Chest CTA on arrival did not show any evidence of pulmonary embolism. It did show honeycombing with mostly lower lobe predominance, consistent with pulmonary fibrosis. There were some scattered infiltrates within the right mid and lower lung shah. Atypical pneumonia was not excluded. Also, has history of RA which she take hydroxychloroquine. 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 Patient is currently sitting up in bed, on 4 L/m nasal cannula, in no acute distress. She did have a low-grade temp with a T-max of 99.8F. CBC on arrival showed mild leukocytosis with WBC count 11.7, hemoglobin 8.6, hematocrit 28.5, platelets 517. BMP on arrival shows sodium 133, potassium 4.4, chloride 106, serum bicarbonate 20, BUN 14, creatinine 0.64, glucose 103. Lactate 1.7. Troponin less than 0.012. NT proBNP was elevated at 7310. No IV maintenance fluids infusing. Negative for influenza, RSV, COVID-19. Empirically being covered with azithromycin. Overall, the patient is hemodynamically stable, and was admitted to the cardiac stepdown unit. Review of Systems REVIEW OF SYSTEMS: CONSTITUTIONAL: Denies any recent significant weight loss or weight gain. EYES: Denies change in vision. EARS, NOSE, MOUTH, THROAT: Denies headaches, denies sore throat. CARDIOVASCULAR: Denies chest pain, palpitations or syncopal episodes. RESPIRATORY: See HPI GASTROINTESTINAL: Denies change in appetite, abdominal pain, nausea and vomiting, or diarrhea GENITOURINARY: Denies hematuria, denies infections. MUSKULOSKELETAL: Denies pain, denies swelling. INTEGUMENTARY: Denies rash, denies eczema. NEUROLOGICAL: Denies recent memory loss, no recent seizure activity. PSYCHIATRIC: Denies anxiety, denies depression. HEMATOLOGIC/LYMPHATIC: Denies anemia, denies enlarged lymph node Past Medical History Past Medical History: Coronary Artery Disease (CAD), Cancer, Chest Pain / Angina, COPD, CVA/TIA, GERD/Reflux, Hyperlipidemia, Hypertension, Osteoarthritis (OA), Rheumatoid Arthritis (RA), Skin Disorder, Vascular Disorder Additional Past Medical History / Comment(s): chronic back pain., scoliosis., heart murmur, SOB w/activity, hx of gastric ulcer, cervical cancer, eczema, TIA-no residuals., frequent diarrhea., hepatitis C with tx,hamlet cataracts, left knee replaced recently-not healing well per pt, lot of pain, recent cataract surg. History of Any Multi-Drug Resistant Organisms: MRSA Date of last positivie culture/infection: 10/09/22 MDRO Source:: lt foot/knee Past Surgical History: Section, Cholecystectomy, Coronary Bypass/CABG, Heart Catheterization, Heart Catheterization With Stent, Joint Replacement, Orthopedic Surgery, Tubal Ligation Additional Past Surgical History / Comment(s): triple CABG 2008, ORIF right leg, ., heart cath with stent 2013(Mph)., heart cath no stent (2019). left knee replaced 1-9-23, tip fib screws Past Anesthesia/Blood Transfusion Reactions: No Reported Reaction Date of Last Stent Placement:: 2013 Past Psychological History: Anxiety, Depression Smoking Status: Former smoker Past Alcohol Use History: None Reported Additional Past Alcohol Use History / Comment(s): started smoking age 18, past hx of 1ppd Past Drug Use History: None Reported - Past Family History Father Family Medical History: Cancer, Dementia Additional Family Medical History / Comment(s): AT AGE 84-LUNG CANCER. Mother Family Medical History: Coronary Artery Disease (CAD) Additional Family Medical History / Comment(s): AT AGE 73. Brother(s) Family Medical History: Cancer Medications and Allergies Home Medications Medication Instructions Recorded Confirmed Type Isosorbide Mononitrate [Imdur] 30 mg PO DAILY 11/22/13 11/17/22 History Metoprolol Tartrate [Lopressor] 50 mg PO BID 01/19/17 11/17/22 History Omeprazole 20 mg PO DAILY 01/19/17 11/17/22 History traZODone HCL 50 mg PO HS 02/26/19 11/17/22 History Acetaminophen [Tylenol Arthritis] 650 mg PO Q4H PRN 05/19/22 11/17/22 History Hydroxychloroquine Sulfate 200 mg PO BID 10/09/22 11/17/22 History [Plaquenil] Albuterol Nebulized [Ventolin 2.5 mg INHALATION RT-Q4H PRN 11/17/22 11/17/22 History Nebulized] Ascorbic Acid [Vitamin C] 1,000 mg PO DAILY 11/17/22 11/17/22 History Aspirin EC [Ecotrin Low Dose] 81 mg PO DAILY 11/17/22 11/17/22 History Atorvastatin [Lipitor] 10 mg PO HS 11/17/22 11/17/22 History Azithromycin [Zithromax] 500 mg PO DAILY 11/17/22 11/17/22 History Budesonide [Pulmicort] 1 mg INHALATION RT-DAILY 11/17/22 11/17/22 History Citalopram Hydrobromide [CeleXA] 20 mg PO DAILY 11/17/22 11/17/22 History DAPTOmycin [Cubicin] 500 mg IV DAILY 11/17/22 11/17/22 History Diclofenac Sodium [Voltaren 1 gm TOPICAL QID@,12,16,20 11/17/22 11/17/22 History Arthritis Pain 1% Gel] Ergocalciferol (Vitamin D2) 1,250 mcg PO TU 11/17/22 11/17/22 History [Drisdol (50,000 Iu)] Ferrous Sulfate [Feosol] 325 mg PO DAILY 11/17/22 11/17/22 History Healthshake 1 dose PO BID-W/MEALS 11/17/22 11/17/22 History Heparin Sodium,Porcine (1 ml) 5,000 unit SQ TID@0500,1300,2100 11/17/22 11/17/22 History [Heparin Sodium] Ipratropium-Albuterol Nebulize 3 ml INHALATION RT-QID@,,,11/17/22 11/17/22 History [Duoneb 0.5 mg-3 mg/3 ml Soln] Quercetin 500 mg PO DAILY 11/17/22 11/17/22 History Sennosides [Senokot] 8.6 mg PO BID 11/17/22 11/17/22 History Zinc Gluconate [Zinc] 25 mg PO DAILY 11/17/22 11/17/22 History guaiFENesin [guaiFENesin Oral 400 mg PO Q4H PRN 11/17/22 11/17/22 History Solution] lisinopriL [Prinivil] 10 mg PO DAILY 11/17/22 11/17/22 History oxyCODONE HCL [OxyIR] 5 mg PO Q4H PRN 11/17/22 11/17/22 History Allergies Allergy/AdvReac Type Severity Reaction Status Date / Time codeine AdvReac Nausea & Verified 11/17/22 15:24 Vomiting Physical Exam Vitals: Vital Signs Temp Pulse Pulse Resp BP BP Pulse Ox 11/17/22 22:02 99.3 F 86 20 120/56 92 L 11/17/22 20:46 96 11/17/22 20:35 87 11/17/22 20:32 89 18 132/51 92 L 11/17/22 20:00 88 18 113/58 92 L 11/17/22 19:00 87 22 128/54 96 11/17/22 18:49 89 11/17/22 18:40 88 11/17/22 18:30 83 22 143/63 94 L 11/17/22 18:00 81 18 143/63 96 11/17/22 17:00 85 26 H 116/54 94 L 11/17/22 16:30 82 26 H 126/62 96 11/17/22 16:00 80 26 H 134/58 92 L 11/17/22 14:40 99.8 F H 80 20 125/60 97 Intake and Output 11/17/22 11/17/22 11/18/22 14:59 22:59 06:59 Other: # Voids 1 Weight 47.174 kg 47.174 kg GENERAL EXAM: Alert, 67-year-old white female, comfortable in no apparent distress. HEAD: Normocephalic and atraumatic EYES: Normal reaction of pupils, equal size. NOSE: Clear with pink turbinates. THROAT: No erythema or exudates. NECK: No masses, no JVD. CHEST: No chest wall deformity. Barrel chest. LUNGS: Equal air entry with inspiratory bibasilar Velcro crackles, worse on the right. No wheezes, rhonchi, focal dullness. On 4 L/m nasal cannula. No conversational dyspnea or accessory muscle use.. CVS: S1 and S2 normal with a systolic ejection murmur grade 3/6, regular rhythm. No extra heart sounds ABDOMEN: No hepatosplenomegaly, active bowel sounds, no guarding or rigidity. SPINE: No scoliosis or deformity SKIN: No rashes CENTRAL NERVOUS SYSTEM: No focal deficits, tone is normal in all 4 extremities. EXTREMITIES: Left knee has a incisional scar that is well approximated without any erythema or swelling. There is no peripheral edema, clubbing, or cyanosis. Right lower extremity pedal and posterior tibial pulses are difficult to palpate, bilateral lower extremities are warm with good capillary refill. Results - Laboratory Findings CBC and BMP: 11/18/22 03:54 11/18/22 03:54 PT/INR, D-dimer PT 11.3 sec (9.0-12.0) 11/17/22 15:27 INR 1.1 (<1.2) 11/17/22 15:27 D-Dimer 3.68 mg/L FEU (<0.60) H 11/17/22 15:27 Abnormal lab findings: Abnormal Labs 11/17/22 11/17/22 11/17/22 15:27 15:27 15:27 WBC 11.7 H RBC 3.19 L Hgb 8.6 L Hct 28.5 L MCHC 30.3 L RDW 17.0 H Plt Count 517 H D Neutrophils # 8.1 H Lymphocytes # 0.8 L Eosinophils # 2.2 H D-Dimer 3.68 H Sodium 133 L Carbon Dioxide 20 L Glucose 103 H Magnesium 1.5 L Alkaline Phosphatase 128 H Albumin 2.6 L - Diagnostic Findings Chest x-ray: image reviewed CT scan - chest: image reviewed Assessment and Plan Assessment: Acute hypoxemic respiratory failure, currently on 4 L/m nasal cannula, possibly multifactorial related to a combination of a healthcare associated pneumonia and mild COPD exacerbation. Follow up Chest CTA on arrival did not show any evidence of pulmonary embolism. It did show extensive consolidation with air bronchograms. There was honeycombing with mostly lower lobe predominance, consistent with pulmonary fibrosis. Has history of RA which she take hydroxychloroquine. 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 There were some scattered infiltrates within the right mid and lower lung shah. There was a 1.2 cm right infrahilar node. Atypical pneumonia was not excluded. Negative for influenza, RSV, COVID- 19. History of left total knee replacement and septic arthritis, isolated organism on October 09 positive MRSA, receiving IV antibiotics outpatient Leukocytosis Mild Chronic obstructive pulmonary disease, with a baseline FEV1 72% of pre dicted. Anemia of chronic disease Aortic stenosis, repeat echocardiogram pending Coronary artery disease, with previous coronary artery bypass graft Peripheral arterial disease History of CVA/TIA Benign essential hypertension Hyperlipidemia Rheumatoid arthritis, maintained on hydroxychloroquine History of chronic nicotine dependence, approximately 50 pack years, quit smoking 3 months ago Plan: Patient's medications, labs, imaging were reviewed Daptomycin has been resumed Also started on empiric azithromycin, Zosyn Add bronchodilators, formoterol, budesonide, and IV Solu-Medrol Mucinex was added for cough Repeat echocardiogram pending We will continue to follow, and further recommendations are forthcoming I have personally seen and examined the patient, performed the documentation and the assessment and plan as written. Number of minutes spent on the visit:20 This is a joint evaluation that was done along with the nurse practitioner. The patient was sent over from shelter/ECF facility for worsening shortness of breath and hypoxemia. The patient has bilateral palmar consolidation worse in the right lower lobe and patchy bilateral pulmonary infiltrates. Obviously, this can be residual of a previous Covid 19 infection and the patient gives a vague history of Covid 19 infection that occurred approximately 2-3 weeks ago. Her current Covid 19 testing is negative. Bacterial pneumonia cannot be completely ruled out. Check pro calcitonin level. Continue antibiotics. Continue daptomycin regarding her septic arthritis. The patient will be also given Zosyn and Zithromax. Will collect sputum a possible. Keep the patient on 4 L of O2 nasal cannula. We'll continue to follow. This evaluation was done in more than 30 minutes. Time with Patient: Greater than 30
[2022-11-18] MEDS: CITALOPRAM HYDROBROMIDE 20 MG TAB PO SCH (08:48)
[2022-11-18] MEDS: lisinopriL 10 MG TAB PO SCH (08:48)
[2022-11-18] MEDS: FERROUS SULFATE 325 MG TAB PO SCH (08:48)
[2022-11-18] MEDS: HYDROXYCHLOROQUINE SULFATE 200 MG TAB PO SCH ×2 (08:48→20:13)
[2022-11-18] MEDS: METOPROLOL TARTRATE 50 MG TAB PO SCH ×2 (08:48→20:13)
[2022-11-18] MEDS: DAPTOmycin 500 MG in SODIUM CHLORIDE 0.9% 50 ML IVPB SCH (08:48)
[2022-11-18] MEDS: ENOXAPARIN 40 MG/0.4 ML SYRINGE SQ SCH (08:48)
[2022-11-18] MEDS: SENNOSIDES 8.6 MG TAB PO SCH ×2 (08:48→20:13)
[2022-11-18] MEDS: ISOSORBIDE MONONITRATE ER 30 MG TAB.ER.24H PO SCH (08:48)
[2022-11-18] MEDS: ASPIRIN 81 MG PO SCH (08:48)
[2022-11-18] MEDS ORDERED: DAPTOmycin 500 MG VIAL IV SCH (09:00)
[2022-11-18] MEDS ORDERED: FUROSEMIDE 10 MG/ML 4 ML VIAL IV SCH (09:00)
[2022-11-18] MEDS: PIPERACILLIN-TAZOBACTAM 3.375 GM in SODIUM CHLORIDE 0.9% 100 ML IVPB SCH ×3 (09:42→23:47)
[2022-11-18 11:57] LABS: Glucose,Whole Blood 181 mg/dL (70-110)
[2022-11-18] MEDS: INSULIN ASPART (NovoLOG) 100 UNIT/ML VIAL SQ SCH ×3 (12:09→20:11)
--- NOTE | 2022-11-18 13:15 | P.PN ---
Subjective Progress Note Date: 11/18/22 Patient is a 67-year-old female with PMH of hypertension, CAD, COPD, GERD, history of CVA, hypertension, dyslipidemia, rheumatoid arthritis with history of left knee surgery and admission on 10/09 for septic arthritis requiring transfer to [facility] where she underwent orthopedic surgery and [facility] to [facility] on IV antibiotics is sent from [facility] for hypoxia and fever. Patient states that she is generally feeling well. She reports a cough productive of clear sputum. She denies any shortness of breath. States that she has been on oxygen since her discharge from [facility]. She denies any headache, lower extremity edema, nausea or vomiting, fever or chills, chest pain, palpitations, changes in urination or bowel habits. No changes in appetite or weight. She denies any dizziness, numbness/weakness/tingling of the extremities. In the ED, she had a T-max of 99.8 Fahrenheit. She was saturating 97% on 2 L nasal cannula. Vital signs otherwise stable. CBC showed WBC count o f 11.7, hemoglobin of 8.6 and platelet count of 517. INR was 1.1. D-dimer 3.68. CMP showed sodium 133, bicarb 20, glucose 103, alkaline phosphatase 128, albumin 2.6. Magnesium 1.5. Troponin less than 0.012. Lactic acid 1.7. BNP 7310. COVID-19, RSV, influenza negative. Chest x-ray showed findings of pulmonary edema. CTA chest was done which showed no PE, pulmonary fibrosis. Patient is admitted for fever and hypoxia. 11/18 Patient was seen and examined. She reports no complaints today. CBC shows WBC count of 12.5, Hg 8.1, Plt 480. BMP shows Na 132, bicarb 21. Mag 1.7. Procalcitonin 0.28. 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 started on Solumedrol 60 mg IV Q6H and Zosyn is added to cover for HCAP, sputum culture ordered. Cardiology consulted, IV lasix discontinued for 20 mg PO QD. Echocardiogram is pending. Currently 92% on 4L NC at rest. General: non toxic, no distress, appears at stated age Derm: warm, dry Head: atraumatic, normocephalic, symmetric Eyes: EOMI, no lid lag, anicteric sclera Mouth: no lip lesion, mucus membranes moist Cardiovascular: S1S2 reg, + murmur Lungs: Decreased breath sounds bilateral, no rhonchi, no rales , no accessory muscle use Ext: no gross muscle atrophy, no edema, no contractures, left knee braced Neuro: no focal neuro deficits Psych: Alert, oriented, appropriate affect Acute hypoxic respiratory failure likely secondary to pulmonary fibrosis rule out PNA Low grade fever Leukocytosis Elevated d-dimer Hyponatremia Normocytic anemia with thrombocytosis Chronic conditions: Hypertension, CAD, COPD, GERD, history of CVA, Hypertension, Dyslipidemia, Rheumatoid arthritis with history of Septic arthritis Based on my assessment of this patient, this patient meets a moderate complexity level of care. Patient has an acute diagnosis of acute hypoxic respiratory failure with CTA chest showing pulmonary fibrosis and possible atypical pneumonia that poses a threat to life or bodily function. Patient is immunocompromise given her history of RA and hydroxychloroquine use. Acute hypoxic respiratory failure likely secondary to pulmonary fibrosis rule out PNA Transitioned to PO lasix. Intake/Outtake. Daily weights. DuoNeb 4 times a day scheduled and albuterol neb as needed for shortness of breath and wheezing. Restart Pulmicort. Robitussin as needed for cough. Azithromycin 500 mg PO QD for concerns of acute bronchitis. Agree with Zosyn 3.375 g IV Q8H. Telemetry monitoring. Cardiology and Pulmonology on board. Echocardiogram pending Low grade fever: Flu, RSV, COVID 19 negative. Recent diagnosis of septic arthritis. Restart Daptomycin IV. Azithromycin for acute bronchitis. Zosyn is added as above. Leukocytosis Elevated d-dimer: CTA chest ruled out PE. Hyponatremia Normocytic anemia with thrombocytosis Decision maker: Brother FULL CODE. Lovenox SQ for DVT prophylaxis. I have reviewed the following compliance consultant notes: I have reviewed the results of the following tests: CBC, BMP, Pro-samina I have ordered the following tests: Echo. CBC. BMP. I have discussed the care of this patient with the following independent historian: I have independently interpreted the following test below: I have discussed the management of this patient with the following physician: Objective - Vital Signs Vital signs: Vital Signs Temp 97.8 F 11/18/22 12:06 Pulse 62 11/18/22 13:12 Resp 16 11/18/22 12:06 BP 100/49 11/18/22 12:06 Pulse Ox 92 L 11/18/22 12:06 FiO2 Intake & Output 11/17/22 11/18/22 11/18/22 18:59 06:59 18:59 Output Total 200 Balance -200 Weight 47.174 kg 45.359 kg Output: Urine 200 Other: Voiding Method External Catheter External Catheter # Voids 1 - Labs CBC & Chem 7: 11/18/22 03:54 11/18/22 03:54 Labs: Abnormal Lab Results - Last 24 Hours (Table) 11/17/22 11/17/22 11/17/22 Range/Units 15:27 15:27 15:27 WBC 11.7 H (3.8-10.6) k/uL RBC 3.19 L (3.80-5.40) m/uL Hgb 8.6 L (11.4-16.0) gm/dL Hct 28.5 L (34.0-46.0) % MCHC 30.3 L (31.0-37.0) g/dL RDW 17.0 H (11.5-15.5) % Plt Count 517 H D (150-450) k/uL Neutrophils # 8.1 H (1.3-7.7) k/uL Lymphocytes # 0.8 L (1.0-4.8) k/uL Eosinophils # 2.2 H (0-0.7) k/uL D-Dimer 3.68 H (<0.60) mg/L FEU Sodium 133 L (137-145) mmol/L Carbon Dioxide 20 L (22-30) mmol/L Glucose 103 H (74-99) mg/dL POC Glucose (mg/dL) (70-110) mg/dL Magnesium 1.5 L (1.6-2.3) mg/dL Alkaline Phosphatase 128 H (38-126) U/L Albumin 2.6 L (3.5-5.0) g/dL Procalcitonin (0.02-0.09) ng/mL 11/18/22 11/18/22 11/18/22 Range/Units 03:54 03:54 03:54 WBC 12.5 H (3.8-10.6) k/uL RBC 2.91 L (3.80-5.40) m/uL Hgb 8.1 L (11.4-16.0) gm/dL Hct 26.2 L (34.0-46.0) % MCHC 30.7 L (31.0-37.0) g/dL RDW 16.6 H (11.5-15.5) % Plt Count 480 H (150-450) k/uL Neutrophils # 9.0 H (1.3-7.7) k/uL Lymphocytes # (1.0-4.8) k/uL Eosinophils # 1.9 H (0-0.7) k/uL D-Dimer (<0.60) mg/L FEU Sodium 132 L (137-145) mmol/L Carbon Dioxide 21 L (22-30) mmol/L Glucose (74-99) mg/dL POC Glucose (mg/dL) (70-110) mg/dL Magnesium (1.6-2.3) mg/dL Alkaline Phosphatase (38-126) U/L Albumin (3.5-5.0) g/dL Procalcitonin 0.28 H (0.02-0.09) ng/mL 11/18/22 11/18/22 Range/Units 06:02 11:56 WBC (3.8-10.6) k/uL RBC (3.80-5.40) m/uL Hgb (11.4-16.0) gm/dL Hct (34.0-46.0) % MCHC (31.0-37.0) g/dL RDW (11.5-15.5) % Plt Count (150-450) k/uL Neutrophils # (1.3-7.7) k/uL Lymphocytes # (1.0-4.8) k/uL Eosinophils # (0-0.7) k/uL D-Dimer (<0.60) mg/L FEU Sodium (137-145) mmol/L Carbon Dioxide (22-30) mmol/L Glucose (74-99) mg/dL POC Glucose (mg/dL) 168 H 181 H (70-110) mg/dL Magnesium (1.6-2.3) mg/dL Alkaline Phosphatase (38-126) U/L Albumin (3.5-5.0) g/dL Procalcitonin (0.02-0.09) ng/mL
--- NOTE | 2022-11-18 13:17 | CA ---
Transthoracic Echo Report Name: Brynn Sr Age: 67 Gender: F : 1955 Exam Date: 11/18/2022 11:32 Exam Location: [facility] Ht (in): 59 Wt (lb): 104 Ordering Physician: Raúl Estrada MD Attending/Referring Phys: Math And Physics Instructor Melissa Lopez [facility] Procedure CPT: Indications: Hypoxia Cardiac Hx: Technical Quality: Technically difficult study Contrast 1: Total Dose (mL): Contrast 2: Total Dose (mL): MEASUREMENTS (Male / Female) Normal Values 2D ECHO LV Diastolic Diameter PLAX 4.1 cm 4.2 - 5.9 / 3.9 - 5.3 cm LV Systolic Diameter PLAX 3.2 cm IVS Diastolic Thickness 1.1 cm 0.6 - 1.0 / 0.6 - 0.9 cm LVPW Diastolic Thickness 0.9 cm 0.6 - 1.0 / 0.6 - 0.9 cm LV Relative Wall Thickness 0.5 LVOT Diameter 2.0 cm Ascending Aorta Diameter 2.6 cm M-MODE Aortic Root Diameter MM 2.2 cm LA Systolic Diameter MM 4.1 cm LA Ao Ratio MM 1.8 AV Cusp Separation MM 1.2 cm DOPPLER AV Peak Velocity 274.0 cm/s AV Peak Gradient 30.0 mmHg AV Mean Velocity 230.3 cm/s AV Mean Gradient 22.4 mmHg AV Velocity Time Integral 71.2 cm LVOT Peak Velocity 120.3 cm/s LVOT Peak Gradient 5.8 mmHg LVOT Velocity Time Integral 30.3 cm LVOT Stroke Volume 90.5 cm??? LVOT Stroke Volume Index 64.8 ml/m??? LVOT Cardiac Index 3866.4 cm???/min???m??? AV Area Cont Eq vti 1.3 cm??? AV Area Cont Eq pk 1.3 cm??? Mitral E Point Velocity 50.8 cm/s Mitral A Point Velocity 77.8 cm/s Mitral E to A Ratio 0.7 MV Deceleration Time 294.4 ms LV E' Lateral Velocity 9.0 cm/s Mitral E to LV E' Lateral Ratio 5.7 LV E' Septal Velocity 5.1 cm/s Mitral E to LV E' Septal Ratio 10.1 TR Peak Velocity 248.8 cm/s TR Peak Gradient 24.8 mmHg Right Atrial Pressure 8.0 mmHg Pulmonary Artery Systolic Pressu 32.8 mmHg Right Ventricular Systolic Press 32.8 mmHg FINDINGS Left Ventricle Mildly increased septal wall thickness. Left ventricular cavity size normal. Normal left ventricular systolic function with no obvious regional wall motion abnormalities. Left ventricular ejection fraction is estimated at 55-60 %. Right Ventricle Mild right ventricular dilatation. Right Atrium Normal right atrial size. Left Atrium Severe left atrial dilatation. Mitral Valve Mitral valve thickened. Moderate mitral annular calcification. Moderate mitral regurgitation. Aortic Valve Aortic valve not well visualized. Diffuse thickening of the aortic valve cusps with reduced excursion. Moderate aortic stenosis with a peak gradient of 30 mmHg and a mean gradient of 22 mmHg. Mild aortic regurgitation. Tricuspid Valve Structurally normal tricuspid valve. Mild tricuspid regurgitation. Pulmonic Valve Pulmonic valve not well visualized. Pericardium No pericardial effusion. Aorta Normal size aortic root and proximal ascending aorta. CONCLUSIONS 1. Normal left ventricle size and systolic function 2. Moderate aortic stenosis with mild aortic regurgitation 3. Moderate mitral and mild tricuspid regurgitation with no evidence of pulmonary hypertension Previewed by: Dr. Zandra Bailon MD (Electronically Signed) Final Date: 18 November 2022 13:16
--- NOTE | 2022-11-18 15:25 | P.CRDCN ---
History of Present Illness Consult date: 11/18/22 Consult reason: congestive heart failure History of present illness: History of present illness: This is a 67 year old female patient of Dr. Simental with past medical history of coronary artery disease with prior CABG in 2008 with TINOCO to LAD, stenting of the LAD distal to TINOCO anastomosis as well as SVG to left circumflex and SVG to RCA and also lower extremity PAD, valvular heart disease with aortic stenosis and mitral regurgitation as well as hypertension, dyslipidemia, carotid atherosclerosis, history of smoking. We have been asked to evaluate the patient for heart failure. Patient states she is not on home oxygen therapy. Patient came in the hospital due to shortness of breath. She is noted to have pulmonary fibrosis and she states that she just does not feel too bad. While at rest. Patient has had ongoing problems with left total knee replacement with septic knee and removal of hardware and IV antibiotics. Patient quit smoking 3 months ago. She has been sent in from the [facility] due to low-grade fever, chronic cough that is nonproductive. Patient denies having any chest pain. No lower extremity edema. No nausea or vomiting. Patient is a poor historian. EKG sinus rhythm with LVH Chest x-ray: Correlate for pulmonary edema CT angiogram of the chest revealed no acute pulmonary embolism. Pulmonary fibrosis. Differential diagnosis includes pneumonia, atypical and neoplasm. Echocardiogram performed 11/17/2022 revealed normal left ventricular size and systolic function, moderate aortic stenosis with mild aortic regurgitation, moderate mitral and mild tricuspid regurgitation with no evidence of pulmonary h ypertension. WBC 12.5, hemoglobin 8.1, platelet count 480. D-dimer 3.68. Sodium 132, potassium 4, BUN 15 creatinine 0.77. Blood sugar 96. Troponin negative 1. ProBNP 7310. Pro-calcitonin 0.28. Alkaline phosphatase 128 otherwise liver function tests are normal. Influenza A, influenza B, RSV, Covid 19 not detected. Home cardiac medications: Aspirin 81 mg daily, atorvastatin 10 mg at bedtime heparin subcu 3 times daily, Imdur 30 mg daily, lisinopril 10 mg daily, metoprolol tartrate 50 mg twice daily Cardiac catheterization history and 2019, severe triple vessel coronary artery disease with patent TINOCO to LAD, stent to the LAD distal to TINOCO anastomosis, patent S SVG to left circumflex, patent SVG to RCA. Echocardiogram 03/2021 normal EF mild to moderate TR, moderate left ear, moderate MRYenny López stress test 03/2021 small distal lateral ischemia Review Of Systems: At the time of my evaluation: Constitutional: No fever, no chills. + weakness. EENT: No headache. No dizziness. Lungs: Chronic shortness of breath, +cough, no sputum production. No wheezing. Cardiovascular: No chest pain, no lower extremity edema. No palpitations. No paroxysmal nocturnal dyspnea. No orthopnea. No lightheadedness or dizziness. No syncopal episodes. Abdominal: No abdominal pain. No nausea, vomiting. No diarrhea. No constipation. No bloody or tarry stools. Genitourinary: No dysuria.. No urinary retention. Musculoskeletal: No myalgias. No muscle weakness, no frequent falls. Integumentary: No wounds. No rash. No unusual bruising. Neurologic: No aphasia. No facial droop. No change in mentation. Physical examination: Gen: This is a frail 67-year-old female. She is resting recliner and appears to be in no acute distress. VS: reviewed HEENT: Head is atraumatic, normocephalic. Pupils equal, round. Sclerae is anicteric. NECK: Supple. No JVD. Brisk carotid upstroke LUNGS: Coarse breath sounds bilaterally. No intercostal retractions. HEART: Regular rate and rhythm. 3/6 Systolic murmur at the right sternal border. ABDOMEN: Soft No tenderness. EXTREMITIES: No pedal edema. No calf tenderness. NEUROLOGICAL: Patient is awake, alert and oriented x3. Assessment: Difficulty breathing multifactorial secondary to moderate aortic stenosis, anemia, pulmonary fibrosis No sign of congestive heart failure clinically History of coronary artery disease previous CABG and stent Peripheral artery disease Valvular heart disease with aortic stenosis and mitral regurgitation Hypertension Hyperlipidemia Carotid atherosclerosis History of tobacco use Plan: Resume patient's home cardiac medications Lasix 20 mg oral daily for 5 days and then discontinue Further recommendations to follow based upon clinical course Thank you kindly for this consultation. Nurse practitioner note has been reviewed, I agree with documented findings and plan of care. Patient was seen and examined. Past Medical History Past Medical History: Coronary Artery Disease (CAD), Cancer, Chest Pain / Angina, COPD, CVA/TIA, GERD/Reflux, Hyperlipidemia, Hypertension, Osteoarthritis (OA), Rheumatoid Arthritis (RA), Skin Disorder, Vascular Disorder Additional Past Medical History / Comment(s): chronic back pain., scoliosis., heart murmur, SOB w/activity, hx of gastric ulcer, cervical cancer, eczema, TIA-no residuals., frequent diarrhea., hepatitis C with tx,hamlet cataracts, left knee replaced recently-not healing well per pt, lot of pain, recent cataract surg. History of Any Multi-Drug Resistant Organisms: MRSA Date of last positivie culture/infection: 10/09/22 MDRO Source:: lt foot/knee Past Surgical History: Section, Cholecystectomy, Coronary Bypass/CABG, Heart Catheterization, Heart Catheterization With Stent, Joint Replacement, Orthopedic Surgery, Tubal Ligation Additional Past Surgical History / Comment(s): triple CABG 2008, ORIF right leg, ., heart cath with stent 2013(Mph)., heart cath no stent (2019). left knee replaced 03-15-22, tip fib screws Past Anesthesia/Blood Transfusion Reactions: No Reported Reaction Date of Last Stent Placement:: 2013 Past Psychological History: Anxiety, Depression Smoking Status: Former smoker Past Alcohol Use History: None Reported Additional Past Alcohol Use History / Comment(s): started smoking age 18, past hx of 1ppd Past Drug Use History: None Reported - Past Family History Father Family Medical History: Cancer, Dementia Additional Family Medical History / Comment(s): AT AGE 84-LUNG CANCER. Mother Family Medical History: Coronary Artery Disease (CAD) Additional Family Medical History / Comment(s): AT AGE 73. Brother(s) Family Medical History: Cancer Medications and Allergies Home Medications Medication Instructions Recorded Confirmed Type Isosorbide Mononitrate [Imdur] 30 mg PO DAILY 11/22/13 11/17/22 History Metoprolol Tartrate [Lopressor] 50 mg PO BID 01/19/17 11/17/22 History Omeprazole 20 mg PO DAILY 01/19/17 11/17/22 History traZODone HCL 50 mg PO HS 02/26/19 11/17/22 History Acetaminophen [Tylenol Arthritis] 650 mg PO Q4H PRN 05/19/22 11/17/22 History Hydroxychloroquine Sulfate 200 mg PO BID 10/09/22 11/17/22 History [Plaquenil] Albuterol Nebulized [Ventolin 2.5 mg INHALATION RT-Q4H PRN 11/17/22 11/17/22 History Nebulized] Ascorbic Acid [Vitamin C] 1,000 mg PO DAILY 11/17/22 11/17/22 History Aspirin EC [Ecotrin Low Dose] 81 mg PO DAILY 11/17/22 11/17/22 History Atorvastatin [Lipitor] 10 mg PO HS 11/17/22 11/17/22 History Azithromycin [Zithromax] 500 mg PO DAILY 11/17/22 11/17/22 History Budesonide [Pulmicort] 1 mg INHALATION RT-DAILY 11/17/22 11/17/22 History Citalopram Hydrobromide [CeleXA] 20 mg PO DAILY 11/17/22 11/17/22 History DAPTOmycin [Cubicin] 500 mg IV DAILY 11/17/22 11/17/22 History Diclofenac Sodium [Voltaren 1 gm TOPICAL QID@08,12,16,20 11/17/22 11/17/22 History Arthritis Pain 1% Gel] Ergocalciferol (Vitamin D2) 1,250 mcg PO TU 11/17/22 11/17/22 History [Drisdol (50,000 Iu)] Ferrous Sulfate [Feosol] 325 mg PO DAILY 11/17/22 11/17/22 History Healthshake 1 dose PO BID-W/MEALS 11/17/22 11/17/22 History Heparin Sodium,Porcine (1 ml) 5,000 unit SQ TID@0500,1300,2100 11/17/22 11/17/22 History [Heparin Sodium] Ipratropium-Albuterol Nebulize 3 ml INHALATION RT-QID@05,,,11/17/22 11/17/22 History [Duoneb 0.5 mg-3 mg/3 ml Soln] Quercetin 500 mg PO DAILY 11/17/22 11/17/22 History Sennosides [Senokot] 8.6 mg PO BID 11/17/22 11/17/22 History Zinc Gluconate [Zinc] 25 mg PO DAILY 11/17/22 11/17/22 History guaiFENesin [guaiFENesin Oral 400 mg PO Q4H PRN 11/17/22 11/17/22 History Solution] lisinopriL [Prinivil] 10 mg PO DAILY 09/13/23 09/13/23 History oxyCODONE HCL [OxyIR] 5 mg PO Q4H PRN 11/17/22 11/17/22 History Allergies Allergy/AdvReac Type Severity Reaction Status Date / Time codeine AdvReac Nausea & Verified 11/17/22 15:24 Vomiting Physical Exam Vitals: Vital Signs Temp Pulse Pulse Resp BP BP Pulse Ox 11/18/22 08:43 98.3 F 70 16 116/56 95 11/18/22 08:18 76 11/18/22 08:03 76 11/18/22 04:00 99.2 F 71 20 131/60 92 L 11/18/22 02:00 71 19 11/18/22 00:00 99.3 F 73 19 134/61 94 L 11/17/22 22:02 99.3 F 86 20 120/56 92 L 11/17/22 21:35 73 19 11/17/22 20:46 96 11/17/22 20:35 87 11/17/22 20:32 89 18 132/51 92 L 11/17/22 20:00 88 18 113/58 92 L 11/17/22 19:00 87 22 128/54 96 11/17/22 18:49 89 11/17/22 18:40 88 11/17/22 18:30 83 22 143/63 94 L 11/17/22 18:00 81 18 143/63 96 11/17/22 17:00 85 26 H 116/54 94 L 11/17/22 16:30 82 26 H 126/62 96 11/17/22 16:00 80 26 H 134/58 92 L 11/17/22 14:40 99.8 F H 80 20 125/60 97 Intake and Output 11/17/22 11/18/22 11/18/22 22:59 06:59 14:59 Output Total 200 Balance -200 Output: Urine 200 Other: Voiding Method External Catheter External Catheter External Catheter # Voids 1 Weight 47.174 kg 45.359 kg Results 11/18/22 03:54 11/18/22 03:54 Cardiac Enzymes 11/17/22 11/17/22 Range/Units 15:27 15:27 AST 35 (14-36) U/L Troponin I <0.012 (0.000-0.034) ng/mL Coagulation 11/17/22 Range/Units 15:27 PT 11.3 (9.0-12.0) sec APTT 28.8 (22.0-30.0) sec CBC 11/17/22 11/18/22 Range/Units 15:27 03:54 WBC 11.7 H 12.5 H (3.8-10.6) k/uL RBC 3.19 L 2.91 L (3.80-5.40) m/uL Hgb 8.6 L 8.1 L (11.4-16.0) gm/dL Hct 28.5 L 26.2 L (34.0-46.0) % Plt Count 517 H D 480 H (150-450) k/uL Comprehensive Metabolic Panel 11/17/22 11/18/22 Range/Units 15:27 03:54 Sodium 133 L 132 L (137-145) mmol/L Potassium 4.4 4.0 (3.5-5.1) mmol/L Chloride 106 102 (98-107) mmol/L Carbon Dioxide 20 L 21 L (22-30) mmol/L BUN 14 15 (7-17) mg/dL Creatinine 0.64 0.77 (0.52-1.04) mg/dL Glucose 103 H 96 (74-99) mg/dL Calcium 8.4 8.4 (8.4-10.2) mg/dL AST 35 (14-36) U/L ALT 21 (4-34) U/L Alkaline Phosphatase 128 H (38-126) U/L Total Protein 6.3 (6.3-8.2) g/dL Albumin 2.6 L (3.5-5.0) g/dL Current Medications Generic Name Dose Route Start Last Admin Trade Name Freq PRN Reason Stop Dose Admin Albuterol Sulfate 2.5 mg 11/17/22 18:08 Albuterol Nebulized 2.5 Mg/3 Ml INHALATION RT-Q4H PRN Shortness Of Breath Albuterol/Ipratropium 3 ml 11/17/22 20:00 11/18/22 08:02 Ipratropium-Albuterol 3 Ml Neb INHALATION 3 ml RT-QID BLADIMIR Administration Aspirin 81 mg 11/18/22 09:00 11/18/22 08:48 Aspirin 81 Mg PO 81 mg DAILY BLADIMIR Administration Atorvastatin Calcium 10 mg 11/17/22 21:00 11/17/22 22:27 Atorvastatin 10 Mg Tab PO 10 mg HS BLADIMIR Administration Azithromycin 500 mg 11/17/22 20:00 11/17/22 21:09 Azithromycin 500 Mg Tab PO 11/20/22 20:01 500 mg DAILY@1800 BLADIMIR Administration Protocol Budesonide 1 mg 11/18/22 08:00 11/18/22 08:03 Budesonide 1 Mg/2 Ml Nebu INHALATION 1 mg RT-DAILY BLADIMIR Administration Citalopram Hydrobromide 20 mg 11/18/22 09:00 11/18/22 08:48 Citalopram Hydrobromide 20 Mg Tab PO 20 mg DAILY BLADIMIR Administration Enoxaparin Sodium 40 mg 11/18/22 09:00 11/18/22 08:48 Enoxaparin 40 Mg/0.4 Ml Syringe SQ 40 mg DAILY BLADIMIR Administration Ferrous Sulfate 325 mg 11/18/22 09:00 11/18/22 08:48 Ferrous Sulfate 325 Mg Tab PO 325 mg DAILY BLADIMIR Administration Furosemide 40 mg 11/18/22 09:00 11/18/22 08:48 Furosemide 10 Mg/Ml 4 Ml Vial IV 40 mg DAILY BLADIMIR Administration Guaifenesin 400 mg 11/17/22 18:08 Guaifenesin Syrup 100mg/5ml 200 Mg/10 Ml Cup PO Q4H PRN Cough Hydroxychloroquine Sulfate 200 mg 11/17/22 21:00 11/18/22 08:48 Hydroxychloroquine Sulfate 200 Mg Tab PO 200 mg BID BLADIMIR Administration Daptomycin 500 mg/ Sodium 50 mls @ 100 mls/hr 11/18/22 09:00 11/18/22 08:48 Chloride IVPB 12/05/22 12:00 100 mls/hr Q24HR BLADIMIR Administration Piperacillin Sod/Tazobactam 100 mls @ 25 mls/hr 11/18/22 08:15 11/18/22 09:42 Sod 3.375 gm/ Sodium Chloride IVPB 25 mls/hr Q8HR BLADIMIR Administration Protocol Isosorbide Mononitrate 30 mg 11/18/22 09:00 11/18/22 08:48 Isosorbide Mononitrate Er 30 Mg Tab.Er.24h PO 30 mg DAILY BLADIMIR Administration Lisinopril 10 mg 11/18/22 09:00 11/18/22 08:48 Lisinopril 10 Mg Tab PO 10 mg DAILY BLADIMIR Administration Melatonin 3 mg 11/17/22 18:05 Melatonin 3 Mg Tablet PO HS PRN Insomnia Methylprednisolone Sodium Succinate 60 mg 11/18/22 02:00 11/18/22 08:48 Methylprednisolone Sod Succi 125 Mg/2 Ml Vial IV 60 mg Q6H BLADIMIR Administration Metoprolol Tartrate 50 mg 11/17/22 21:00 11/18/22 08:48 Metoprolol Tartrate 50 Mg Tab PO 50 mg BID BLADIMIR Administration Naloxone HCl 0.2 mg 11/17/22 18:05 Naloxone 0.4 Mg/Ml 1 Ml Vial IV Q2M PRN Opioid Reversal Ondansetron HCl 4 mg 11/17/22 18:05 11/17/22 22:28 Ondansetron 4 Mg/2 Ml Vial IVP 4 mg Q8HR PRN Administration Nausea And Vomiting Oxycodone HCl 5 mg 11/17/22 18:08 11/18/22 08:47 Oxycodone Hcl 5 Mg Tab PO 5 mg Q4H PRN Administration Pain Pantoprazole Sodium 40 mg 11/18/22 07:30 11/18/22 05:11 Pantoprazole 40 Mg Tablet PO 40 mg [id number] BLADIMIR Administration Senna 8.6 mg 11/17/22 21:00 11/18/22 08:48 Sennosides 8.6 Mg Tab PO 8.6 mg BID BLADIMIR Administration Trazodone HCl 50 mg 11/17/22 21:00 11/17/22 22:28 Trazodone Hcl 50 Mg Tab PO 50 mg HS BLADIMIR Administration Intake and Output 11/17/22 11/18/22 11/18/22 22:59 06:59 14:59 Output Total 200 Balance -200 Output: Urine 200 Other: Voiding Method External Catheter External Catheter External Catheter # Voids 1 Weight 47.174 kg 45.359 kg 11/18/22 03:54 11/18/22 03:54
[2022-11-18 16:09] VITALS: BMI 20.2
[2022-11-18 16:30] LABS: Glucose,Whole Blood 231 mg/dL (70-110)
[2022-11-18] MEDS: AZITHROMYCIN 500 MG TAB PO SCH (17:09)
[2022-11-18 20:02] LABS: Glucose,Whole Blood 212 mg/dL (70-110)
[2022-11-18] MEDS: traZODone HCL 50 MG TAB PO SCH (20:13)
[2022-11-18] MEDS: ATORVASTATIN 10 MG TAB PO SCH (20:13)
[2022-11-19] MEDS: methylPREDNISolone SOD SUCCI 125 MG/2 ML VIAL IV SCH ×4 (02:41→20:14)
[2022-11-19 06:25] LABS: Glucose,Whole Blood 177 mg/dL (70-110)
[2022-11-19] MEDS: INSULIN ASPART (NovoLOG) 100 UNIT/ML VIAL SQ SCH ×4 (06:29→20:13)
[2022-11-19] MEDS: PANTOPRAZOLE 40 MG TABLET PO SCH (06:29)
[2022-11-19] MEDS: BUDESONIDE 1 MG/2 ML NEBU INHALATION SCH (07:58)
[2022-11-19] MEDS: IPRATROPIUM-ALBUTEROL 3 ML NEB INHALATION SCH ×4 (07:58→20:33)
[2022-11-19] MEDS: ENOXAPARIN 40 MG/0.4 ML SYRINGE SQ SCH (09:38)
[2022-11-19] MEDS: HYDROXYCHLOROQUINE SULFATE 200 MG TAB PO SCH ×2 (09:38→20:14)
[2022-11-19] MEDS: FUROSEMIDE 20 MG TAB PO SCH (09:38)
[2022-11-19] MEDS: ASPIRIN 81 MG PO SCH (09:38)
[2022-11-19] MEDS: ISOSORBIDE MONONITRATE ER 30 MG TAB.ER.24H PO SCH (09:38)
[2022-11-19] MEDS: lisinopriL 10 MG TAB PO SCH (09:38)
[2022-11-19] MEDS: FERROUS SULFATE 325 MG TAB PO SCH (09:38)
[2022-11-19] MEDS: CITALOPRAM HYDROBROMIDE 20 MG TAB PO SCH (09:38)
[2022-11-19] MEDS: SENNOSIDES 8.6 MG TAB PO SCH ×2 (09:38→20:14)
[2022-11-19] MEDS: DAPTOmycin 500 MG in SODIUM CHLORIDE 0.9% 50 ML IVPB SCH (09:43)
[2022-11-19] MEDS: PIPERACILLIN-TAZOBACTAM 3.375 GM in SODIUM CHLORIDE 0.9% 100 ML IVPB SCH ×2 (09:44→15:10)
[2022-11-19] MEDS: METOPROLOL TARTRATE 50 MG TAB PO SCH ×2 (10:16→20:15)
[2022-11-19 11:30] LABS: Glucose,Whole Blood 216 mg/dL (70-110)
--- NOTE | 2022-11-19 12:07 | CDI ---
Documentation Clarification Form Date: 11/19/2022 11:48:30 AM From: Charlene Valdovinos RN CCDS Phone: [phone] Admit Date: 11/17/2022 06:07:00 PM Patient Name: Brynn Sr Visit Number: [id number] Discharge Date: ATTENTION: The Clinical Documentation Specialists (CDI) and [facility] Coding Staff appreciate your assistance in clarifying documentation. Please respond to the clarification below the line at the bottom and electronically sign. The CDI & [facility] Coding staff will review the response and follow-up if needed. Please note: Queries are made part of the Legal Health Record. If you have any questions, please contact the author of this message via ITS. Dr. Raúl Estrada Your patient has the documented diagnosis of Diastolic CHF Exacerbation, 11/17, H&P. Additional information regarding the [type, acuity] of CHF is requested. History/Risk Factors: 67-year-old female presents to ED from [facility] for hypoxia and fever. Medical History: Left septic knee on Distamycin IV; CHF, HTN, CAD and COPD. 11/17, H&P. Clinical Indicators: VS/Pulse OX: 11/17 B/P 125/60; HR 80; Temp 99.8 F oral; RR 20; SpO2 97% 2L nc BNP, 11/17: 7310 Echocardiogram Results: EF 55 60% Normal left ventricle size and function. Moderate aortic stenosis with mild aortic regurgitation, Moderate mitral and mild tricuspid regurgitation with no evidence of pulmonary hypertension. Chest X Ray, 11/17: Clinical correlation recommended for pulmonary edema. AGCHEST, 11/17: Pulmonary fibrosis. Differential diagnosis includes pneumonia, atypical and neoplasm. Cardiology consult 11/18: No sign of congestive heart failure clinically. Treatment: 11/17 Lasix IV x 1; 11/18 Lasix IV x 1; 11/19 Lasix po daily; 11/18 Imdur po daily; Lopressor bid; 11/18 Lisinopril po daily. In your professional opinion, can you please clarify the acuity of CHF if known? [ ] Chronic Diastolic Heart Failure (preserved EF) [ ] Acute on Chronic Diastolic Heart Failure (preserved EF) [x ] Other, please specify CHF ruled out [ ] Unable to determine Template Last Revised: April 2020) MTDD
--- NOTE | 2022-11-19 12:17 | CDI ---
Documentation Clarification Form Date: 11/19/2022 12:09:27 PM From: Charlene Valdovinos RN CCDS Phone: [phone] Admit Date: 11/17/2022 06:07:00 PM Patient Name: Brynn Sr Visit Number: [id number] Discharge Date: ATTENTION: The Clinical Documentation Specialists (CDI) and [facility] Coding Staff appreciate your assistance in clarifying documentation. Please respond to the clarification below the line at the bottom and electronically sign. The CDI & [facility] Coding staff will review the response and follow-up if needed. Please note: Queries are made part of the Legal Health Record. If you have any questions, please contact the author of this message via ITS. Dr. Raúl Estrada Conflicting documentation has been found in the medical record. As attending physician, please provide clarification. Healthcare associated pneumonia, Pulmonary consult, 11/18. Rule out PNA, Medicine progress note, 11/18 History/Risk Factors: History/Risk Factors: 67-year-old female presents to ED from [facility] for hypoxia and fever. Medical History: Left septic knee on Distamycin IV was inpt 10/09 then went to [facility]; CHF, HTN, CAD and COPD. 11/17, H&P. Clinical Indicators: VS/Pulse OX: 11/17 B/P 125/60; HR 80; Temp 99.8 F oral; RR 20; SpO2 97% 2L nc Chest X Ray, 11/17: Clinical correlation recommended for pulmonary edema. AGCHEST, 11/17: Pulmonary fibrosis. Differential diagnosis includes pneumonia, atypical and neoplasm. Pulmonary consult, 11/18: Acute hypoxemic respiratory failure, currently on 4 L/m nasal cannula, possibly multifactorial related to a combination of a healthcare associated pneumonia and mild COPD exacerbation. Medicine note, 11/18: Acute hypoxic respiratory failure likely secondary to pulmonary fibrosis rule out PNA. Treatment: Please clarify which diagnosis is most appropriate: [ ] Healthcare Pneumonia (Gram negative pneumonia) [ ] Pneumonia ruled out [ x ] Healthcare Pneumonia (please specify bacteria)__unknown bacteria [ ] Other (please specify) [ ] Unable to determine (Template Last Revised: May 2020) MTDD
--- NOTE | 2022-11-19 12:27 | P.PN ---
Subjective Progress Note Date: 11/19/22 I am seeing this patient in consultation today 11/18/2022 after she was transferred from [facility] for shortness of breath and hypoxia. Patient is a 67-year-old white female with past medical history significant for left total knee replacement with recent admission for septic arthritis on October 09 and transferred to [facility], COPD, ex-smoker, coronary artery disease with previous CABG, aortic stenosis, peripheral arterial disease, GERD, CVA, hypertension, hyperlipidemia, and rheumatoid arthritis. Patient has been at [facility] for about one month, since her discharge from [facility]. She has been receiving IV antibiotics through a left arm PICC line. Cultures of the knee were positive for MRSA back on October 09, and the patient has been restarted on daptomycin. Knee hardware was reportedly removed. She has not walked since March. While at [facility], the patient has been progressively more short of breath, usually just during exertion. She has been on supplemental oxygen, which she previously did not need. She does have history of mild COPD with a baseline FEV1 72 % of predicted. She has seen Dr. Campos in the office before, but does not routinely follow. She does have significant smoking history of 1 pack per day for almost 50 years. Quit smoking 3 months ago. Yesterday afternoon, the patient was transferred to the emergency room for hypoxia and low-grade fever. Admits a chronic cough, mostly dry and nonproductive. Denies any chest pain, heart palpitations, lower extremity swelling, orthopnea. Chest x-ray on admission was concerning for asymmetric pulmonary edema. Follow-up Chest CTA on arrival did not show any evidence of pulmonary embolism. It did show honeycombing with mostly lower lobe predominance, consistent with pulmonary fibrosis. There were some scattered infiltrates within the right mid and lower lung shah. Atypical pneumonia was not excluded. Also, has history of RA which she take hydroxychloroquine. 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 Patient is currently sitting up in bed, on 4 L/m nasal cannula, in no acute distress. She did have a low-grade temp with a T-max of 99.8F. CBC on arrival showed mild leukocytosis with WBC count 11.7, hemoglobin 8.6, hematocrit 28.5, platelets 517. BMP on arrival shows sodium 133, potassium 4.4, chloride 106, serum bicarbonate 20, BUN 14, creatinine 0.64, glucose 103. Lactate 1.7. Troponin less than 0.012. NT proBNP was elevated at 7310. No IV maintenance fluids infusing. Negative for influenza, RSV, COVID-19. Empirically being covered with azithromycin. Overall, the patient is hemodynamically stable, and was admitted to the cardiac stepdown unit. On today's evaluation of 11/19 2022, the patient is being seen for a follow-up. The patient is stable on 4 L of oxygen by nasal cannula. The patient remains on a combination of Zosyn and Zithromax and the patient is also on daptomycin. The patient is afebrile. The patient is hemodynamically stable. The patient is also on IV Solu-Medrol 60 mg every 6 hours. No new labs are available from today. Most recent labs are from yesterday. The pro-calcitonin level is at 0.28. No interval worsening shortness of breath. In fact, the patient is feeling slightly improved compared to yesterday. Echo was also done the patient was found to have moderate degree of aortic stenosis with mild aortic regurgitation, normal LV, moderate MR without evidence of any pulmonary hypertension. Objective - Vital Signs Vital signs: Vital Signs Temp 97.7 F 11/19/22 04:00 Pulse 72 11/19/22 08:16 Resp 19 11/19/22 04:00 BP 105/52 11/19/22 04:00 Pulse Ox 94 L 11/19/22 08:01 FiO2 Intake & Output 11/18/22 11/19/22 11/19/22 18:59 06:59 18:59 Intake Total 660 200 480 Output Total 450 665 Balance 210 -465 480 Weight 45.359 kg 45.6 kg Intake: Oral 660 200 480 Output: Urine 450 665 Other: Voiding Method External Catheter External Catheter - Exam GENERAL EXAM: Alert, 67-year-old white female, comfortable in no apparent distress. HEAD: Normocephalic and atraumatic EYES: Normal reaction of pupils, equal size. NOSE: Clear with pink turbinates. THROAT: No erythema or exudates. NECK: No masses, no JVD. CHEST: No chest wall deformity. Barrel chest. LUNGS: Equal air entry with inspiratory bibasilar Velcro crackles, worse on the right. No wheezes, rhonchi, focal dullness. On 4 L/m nasal cannula. No conversational dyspnea or accessory muscle use.. CVS: S1 and S2 normal with a systolic ejection murmur grade 3/6, regular rhythm. No extra heart sounds ABDOMEN: No hepatosplenomegaly, active bowel sounds, no guarding or rigidity. SPINE: No scoliosis or deformity SKIN: No rashes CENTRAL NERVOUS SYSTEM: No focal deficits, tone is normal in all 4 extremities. EXTREMITIES: Left knee has a incisional scar that is well approximated without any erythema or swelling. There is no peripheral edema, clubbing, or cyanosis. Right lower extremity pedal and posterior tibial pulses are difficult to palpate, bilateral lower extremities are warm with good capillary refill. - Labs CBC & Chem 7: 11/18/22 03:54 11/18/22 03:54 Labs: Abnormal Lab Results - Last 24 Hours (Table) 11/18/22 11/18/22 11/18/22 Range/Units 11:56 16:29 20:01 POC Glucose (mg/dL) 181 H 231 H 212 H (70-110) mg/dL 11/19/22 Range/Units 06:23 POC Glucose (mg/dL) 177 H (70-110) mg/dL Microbiology - Last 24 Hours (Table) 11/17/22 15:30 Blood Culture - Preliminary Blood 11/17/22 15:45 Blood Culture - Preliminary Blood Assessment and Plan Assessment: Acute hypoxemic respiratory failure, currently on 4 L/m nasal cannula, possibly multifactorial related to a combination of a healthcare associated pneumonia and mild COPD exacerbation. Follow up Chest CTA on arrival did not show any evidence of pulmonary embolism. It did show extensive consolidation with air bronchograms. There was honeycombing with mostly lower lobe predominance, consistent with pulmonary fibrosis. Has history of RA which she take h ydroxychloroquine. 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 There were some scattered infiltrates within the right mid and lower lung shah. There was a 1.2 cm right infrahilar node. Atypical pneumonia was not excluded. Negative for influenza, RSV, COVID- 19. History of left total knee replacement and septic arthritis, isolated organism on October 09 positive MRSA, receiving IV antibiotics outpatient Leukocytosis Mild Chronic obstructive pulmonary disease, with a baseline FEV1 72% of predicted. Anemia of chronic disease Aortic stenosis, repeat echocardiogram showed a moderate degree of aortic stenosis with a preserved LV Coronary artery disease, with previous coronary artery bypass graft Peripheral arterial disease History of CVA/TIA Benign essential hypertension Hyperlipidemia Rheumatoid arthritis, maintained on hydroxychloroquine History of chronic nicotine dependence, approximately 50 pack years, quit smoking 3 months ago Plan: Continue Zosyn and Zithromax for now as an empiric antibiotic coverage Continue daptomycin regarding the septic knee Keep the patient 4 L O2 nasal cannula Pro calcitonin level is mildly elevated Echocardiogram showed a moderate degree of aortic stenosis Repeat chest x-ray tomorrow Attempt to wean down FiO2 as tolerated to maintain a saturation above 90%
--- NOTE | 2022-11-19 13:28 | P.PN ---
Subjective Progress Note Date: 11/19/22 History of present illness: This is a 67 year old female patient of Dr. Simental with past medical history of coronary artery disease with prior CABG in 2008 with TINOCO to LAD, stenting of the LAD distal to TINOCO anastomosis as well as SVG to left circumflex and SVG to RCA and also lower extremity PAD, valvular heart disease with aortic stenosis and mitral regurgitation as well as hypertension, dyslipidemia, carotid atherosclerosis, history of smoking. We have been asked to evaluate the patient for heart failure. Patient states she is not on home oxygen therapy. Patient came in the hospital due to shortness of breath. She is noted to have pulmonary fibrosis and she states that she just does not feel too bad. While at rest. Patient has had ongoing problems with left total knee replacement with septic knee and removal of hardware and IV antibiotics. Patient quit smoking 3 months ago. She has been sent in from the group home due to low-grade fever, chronic cough that is nonproductive. Patient denies having any chest pain. No lower extremity edema. No nausea or vomiting. Patient is a poor historian. EKG sinus rhythm with LVH Chest x-ray: Correlate for pulmonary edema CT angiogram of the chest revealed no acute pulmonary embolism. Pulmonary fibrosis. Differential diagnosis includes pneumonia, atypical and neoplasm. Echocardiogram performed 11/17/2022 revealed normal left ventricular size and systolic function, moderate aortic stenosis with mild aortic regurgitation, moderate mitral and mild tricuspid regurgitation with no evidence of pulmonary hypertension. WBC 12.5, hemoglobin 8.1, platelet count 480. D-dimer 3.68. Sodium 132, potassium 4, BUN 15 creatinine 0.77. Blood sugar 96. Troponin negative 1. ProBNP 7310. Pro-calcitonin 0.28. Alkaline phosphatase 128 otherwise liver function tests are normal. Influenza A, influenza B, RSV, Covid 19 not detected. Home cardiac medications: Aspirin 81 mg daily, atorvastatin 10 mg at bedtime heparin subcu 3 times daily, Imdur 30 mg daily, lisinopril 10 mg daily, metoprolol tartrate 50 mg twice daily Cardiac catheterization history and 2019, severe triple vessel coronary artery disease with patent TINOCO to LAD, stent to the LAD distal to TINOCO anastomosis, patent SVG to left circumflex, patent SVG to RCA. Echocardiogram 03/2021 normal EF mild to moderate TR, moderate left ear, moderate MR. Lexiscan stress test 03/2021 small distal lateral ischemia 11/19 states that her breathing is back to normal but she is on oxygen which he does not have at home. Would place patient on oral Lasix with plan for 5 day course. Echocardiogram reveals normal left ventricular size and systolic function. Moderate aortic stenosis with mild aortic regurgitation. Moderate mitral and mild tricuspid regurgitation with no evidence of pulmonary hypertension Physical examination: Gen: This is a frail 67-year-old female. She is resting recliner and appears to be in no acute distress. VS: reviewed HEENT: Head is atraumatic, normocephalic. Pupils equal, round. Sclerae is anicteric. NECK: Supple. No JVD. Brisk carotid upstroke LUNGS: Coarse breath sounds bilaterally. No intercostal retractions. HEART: Regular rate and rhythm. 3/6 Systolic murmur at the right sternal border. ABDOMEN: Soft No tenderness. EXTREMITIES: No pedal edema. No calf tenderness. NEUROLOGICAL: Patient is awake, alert and oriented x3. Assessment: Difficulty breathing multifactorial secondary to moderate aortic stenosis, anemia, pulmonary fibrosis, mild diastolic heart failure No sign of congestive heart failure clinically History of coronary artery disease previous CABG and stent Peripheral artery disease Valvular heart disease with aortic stenosis and mitral regurgitation Hypertension Hyperlipidemia Carotid atherosclerosis History of tobacco use Plan: Resume patient's home cardiac medications Lasix 20 mg oral daily for 5 days and then discontinue Would recommend possible workup for anemia and patient may be transfused iron if indicated Plan for outpatient follow-up in the office with Dr. Simental.Cardiology will sign o ff this case and follow on an as-needed basis. Please reconsult for any new concerns. Nurse practitioner note has been reviewed, I agree with documented findings and plan of care. Patient was seen and examined. Objective - Vital Signs Vital signs: Vital Signs Temp 97.7 F 11/19/22 04:00 Pulse 72 11/19/22 08:16 Resp 19 11/19/22 04:00 BP 105/52 11/19/22 04:00 Pulse Ox 94 L 11/19/22 08:01 FiO2 Intake & Output 11/18/22 11/19/22 11/19/22 18:59 06:59 18:59 Intake Total 660 200 Output Total 450 665 Balance 210 -465 Weight 45.359 kg 45.6 kg Intake: Oral 660 200 Output: Urine 450 665 Other: Voiding Method External Catheter External Catheter - Labs CBC & Chem 7: 11/18/22 03:54 11/18/22 03:54 Labs: Abnormal Lab Results - Last 24 Hours (Table) 11/18/22 11/18/22 11/18/22 Range/Units 03:54 11:56 16:29 POC Glucose (mg/dL) 181 H 231 H (70-110) mg/dL Procalcitonin 0.28 H (0.02-0.09) ng/mL 11/18/22 11/19/22 Range/Units 20:01 06:23 POC Glucose (mg/dL) 212 H 177 H (70-110) mg/dL Procalcitonin (0.02-0.09) ng/mL Microbiology - Last 24 Hours (Table) 11/17/22 15:30 Blood Culture - Preliminary Blood 11/17/22 15:45 Blood Culture - Preliminary Blood
--- NOTE | 2022-11-19 14:06 | P.PN ---
Subjective Progress Note Date: 11/19/22 Patient is a 67-year-old female with PMH of hypertension, CAD, COPD, GERD, history of CVA, hypertension, dyslipidemia, rheumatoid arthritis with history of left knee surgery and admission on 10/09 for septic arthritis requiring transfer to [facility] where she underwent orthopedic surgery and discharged to [facility] on IV antibiotics is sent from [facility] for hypoxia and fever. Patient states that she is generally feeling well. She reports a cough productive of clear sputum. She denies any shortness of breath. States that she has been on oxygen since her discharge from [facility]. She denies any headache, lower extremity edema, nausea or vomiting, fever or chills, chest pain, palpitations, changes in urination or bowel habits. No changes in appetite or weight. She denies any dizziness, numbness/weakness/tingling of the extremities. In the ED, she had a T-max of 99.8 Fahrenheit. She was saturating 97% on 2 L nasal cannula. Vital signs otherwise stable. CBC showed WBC count o f 11.7, hemoglobin of 8.6 and platelet count of 517. INR was 1.1. D-dimer 3.68. CMP showed sodium 133, bicarb 20, glucose 103, alkaline phosphatase 128, albumin 2.6. Magnesium 1.5. Troponin less than 0.012. Lactic acid 1.7. BNP 7310. COVID-19, RSV, influenza negative. Chest x-ray showed findings of pulmonary edema. CTA chest was done which showed no PE, pulmonary fibrosis. Patient is admitted for fever and hypoxia. 11/18 Patient was seen and examined. She reports no complaints today. CBC shows WBC count of 12.5, Hg 8.1, Plt 480. BMP shows Na 132, bicarb 21. Mag 1.7. Procalcitonin 0.28. 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 started on Solumedrol 60 mg IV Q6H and Zosyn is added to cover for HCAP, sputum culture ordered. Cardiology consulted, IV lasix discontinued for 20 mg PO QD. Echocardiogram is pending. Currently 92% on 4L NC at rest. 11/19 Patient was seen and examined. She reports no complaints Currently on 4L NC. Pulmonology recommends continued IV antibiotics for treatment of PNA and repeat CXR tomorrow. Procal elevated at 0.28. Echo shows normal LV size and sy stolic function, moderate , mild AR, moderate MR and mild TR. General: non toxic, no distress, appears at stated age Derm: warm, dry Head: atraumatic, normocephalic, symmetric Eyes: EOMI, no lid lag, anicteric sclera Mouth: no lip lesion, mucus membranes moist Cardiovascular: S1S2 reg, + murmur Lungs: Decreased breath sounds bilateral, no rhonchi, no rales , no accessory muscle use Ext: no gross muscle atrophy, no edema, no contractures, left knee braced Neuro: no focal neuro deficits Psych: Alert, oriented, appropriate affect Acute hypoxic respiratory failure likely secondary to pulmonary fibrosis rule out PNA Low grade fever Leukocytosis Elevated d-dimer Hyponatremia Normocytic anemia with thrombocytosis Chronic conditions: Hypertension, CAD, COPD, GERD, history of CVA, Hypertension, Dyslipidemia, Rheumatoid arthritis with history of Septic arthritis Based on my assessment of this patient, this patient meets a moderate complexity level of care. Patient has an acute diagnosis of acute hypoxic respiratory failure with CTA chest showing pulmonary fibrosis and possible atypical pneumonia that poses a threat to life or bodily function. Patient is immunocompromise given her hi story of RA and hydroxychloroquine use. Acute hypoxic respiratory failure likely secondary to pulmonary fibrosis rule out PNA Transitioned to PO lasix. Intake/Outtake. Daily weights. DuoNeb 4 times a day scheduled and albuterol neb as needed for shortness of breath and wheezing. Restart Pulmicort. Robitussin as needed for cough. Azithromycin 500 mg PO QD for concerns of acute bronchitis. Agree with Zosyn 3.375 g IV Q8H. Telemetry monitoring. Cardiology and Pulmonology on board. Echocardiogram as above. Low grade fever: Flu, RSV, COVID 19 negative. Recent diagnosis of septic arthritis. Restart Daptomycin IV. Azithromycin for acute bronchitis. Zosyn is added as above. Leukocytosis Elevated d-dimer: CTA chest ruled out PE. Hyponatremia Normocytic anemia with thrombocytosis Decision maker: Brother FULL CODE. Lovenox SQ for DVT prophylaxis. I have reviewed the following architecture consultant notes: I have reviewed the results of the following tests: Echo I have ordered the following tests: CBC. BMP. I have discussed the care of this patient with the following independent historian: I have independently interpreted the following test below: I have discussed the management of this patient with the following physician: Objective - Vital Signs Vital signs: Vital Signs Temp 98.2 F 11/19/22 12:00 Pulse 71 11/19/22 12:00 Resp 19 11/19/22 13:22 BP 137/58 11/19/22 12:00 Pulse Ox 99 11/19/22 12:00 FiO2 Intake & Output 11/18/22 11/19/22 11/19/22 18:59 06:59 18:59 Intake Total 660 200 750 Output Total 450 665 Balance 210 -465 750 Weight 45.359 kg 45.6 kg Intake: Intake, IV Titration 150 Amount DAPTOmycin 500 mg In 50 Sodium Chloride 0.9% 50 ml @ 100 mls/hr IVPB Q24HR [facility] Rx#:[id number] Piperacillin-Tazobactam 3 100 .375 gm In Sodium Chloride 0.9% 100 ml @ 25 mls/hr IVPB Q8HR [facility] Rx# :[id number] Oral 660 200 600 Output: Urine 450 665 Other: Voiding Method External Catheter External Catheter External Catheter - Labs CBC & Chem 7: 11/18/22 03:54 11/18/22 03:54 Labs: Abnormal Lab Results - Last 24 Hours (Table) 11/18/22 11/18/22 11/19/22 Range/Units 16:29 20:01 06:23 POC Glucose (mg/dL) 231 H 212 H 177 H (70-110) mg/dL 11/19/22 Range/Units 11:29 POC Glucose (mg/dL) 216 H (70-110) mg/dL Microbiology - Last 24 Hours (Table) 11/17/22 15:30 Blood Culture - Preliminary Blood 11/17/22 15:45 Blood Culture - Preliminary Blood
[2022-11-19 16:28] LABS: Glucose,Whole Blood 148 mg/dL (70-110)
[2022-11-19] MEDS: AZITHROMYCIN 500 MG TAB PO SCH (16:57)
[2022-11-19 20:09] LABS: Glucose,Whole Blood 183 mg/dL (70-110)
[2022-11-19] MEDS: ATORVASTATIN 10 MG TAB PO SCH (20:14)
[2022-11-19] MEDS: traZODone HCL 50 MG TAB PO SCH (20:14)
[2022-11-20] MEDS: PIPERACILLIN-TAZOBACTAM 3.375 GM in SODIUM CHLORIDE 0.9% 100 ML IVPB SCH ×3 (01:37→15:54)
[2022-11-20] MEDS: methylPREDNISolone SOD SUCCI 125 MG/2 ML VIAL IV SCH ×4 (01:38→20:31)
[2022-11-20 06:04] LABS: Glucose,Whole Blood 159 mg/dL (70-110)
[2022-11-20] MEDS: PANTOPRAZOLE 40 MG TABLET PO SCH (06:31)
[2022-11-20] MEDS: INSULIN ASPART (NovoLOG) 100 UNIT/ML VIAL SQ SCH ×4 (06:31→20:29)
[2022-11-20] MEDS: IPRATROPIUM-ALBUTEROL 3 ML NEB INHALATION SCH ×4 (07:45→20:52)
[2022-11-20] MEDS: BUDESONIDE 1 MG/2 ML NEBU INHALATION SCH (07:45)
--- NOTE | 2022-11-20 08:30 | XR ---
EXAMINATION TYPE: XR chest 2V DATE OF EXAM: 11/20/2022 COMPARISON: 11/17/2022 HISTORY: Shortness of breath TECHNIQUE: Frontal and lateral views of the chest are obtained. FINDINGS: Scattered senescent parenchymal changes noted. Hyperinflation compatible with COPD. Improved but persistent infiltrate left upper lobe. Improving infiltrate throughout the right lung as well. Heart size is stable. Mediastinal structures are stable and grossly unremarkable. No evidence for hilar prominence. Degenerative changes dorsal spine. IMPRESSION: 1. Improving but persistent bilateral infiltrates.
[2022-11-20] MEDS: HYDROXYCHLOROQUINE SULFATE 200 MG TAB PO SCH ×2 (09:20→20:29)
[2022-11-20] MEDS: ENOXAPARIN 40 MG/0.4 ML SYRINGE SQ SCH (09:20)
[2022-11-20] MEDS: METOPROLOL TARTRATE 50 MG TAB PO SCH ×2 (09:21→20:29)
[2022-11-20] MEDS: ASPIRIN 81 MG PO SCH (09:21)
[2022-11-20] MEDS: FUROSEMIDE 20 MG TAB PO SCH (09:21)
[2022-11-20] MEDS: lisinopriL 10 MG TAB PO SCH (09:21)
[2022-11-20] MEDS: SENNOSIDES 8.6 MG TAB PO SCH ×2 (09:21→20:29)
[2022-11-20] MEDS: CITALOPRAM HYDROBROMIDE 20 MG TAB PO SCH (09:21)
[2022-11-20] MEDS: ISOSORBIDE MONONITRATE ER 30 MG TAB.ER.24H PO SCH (09:21)
[2022-11-20] MEDS: FERROUS SULFATE 325 MG TAB PO SCH (09:21)
[2022-11-20] MEDS: DAPTOmycin 500 MG in SODIUM CHLORIDE 0.9% 50 ML IVPB SCH (09:47)
[2022-11-20 11:48] LABS: Glucose,Whole Blood 256 mg/dL (70-110)
--- NOTE | 2022-11-20 12:17 | P.PN ---
Subjective Progress Note Date: 11/20/22 I am seeing this patient in consultation today 11/18/2022 after she was transferred from [facility] for shortness of breath and hypoxia. Patient is a 67-year-old white female with past medical history significant for left total knee replacement with recent admission for septic arthritis on October 09 and transferred to [facility], COPD, ex-smoker, coronary artery disease with previous CABG, aortic stenosis, peripheral arterial disease, GERD, CVA, hypertension, hyperlipidemia, and rheumatoid arthritis. Patient has been at [facility] for about one month, since her discharge from [facility]. She has been receiving IV antibiotics through a left arm PICC line. Cultures of the knee were positive for MRSA back on October 09, and the patient has been restarted on daptomycin. Knee hardware was reportedly removed. She has not walked since March. While at [facility], the patient has been progressively more short of breath, usually just during exertion. She has been on supplemental oxygen, which she previously did not need. She does have history of mild COPD with a baseline FEV1 72 % of predicted. She has seen Dr. Campos in the office before, but does not routinely follow. She does have significant smoking history of 1 pack per day for almost 50 years. Quit smoking 3 months ago. Yesterday afternoon, the patient was transferred to the emergency room for hypoxia and low-grade fever. Admits a chronic cough, mostly dry and nonproductive. Denies any chest pain, heart palpitations, lower extremity swelling, orthopnea. Chest x-ray on admission was concerning for asymmetric pulmonary edema. Follow-up Chest CTA on arrival did not show any evidence of pulmonary embolism. It did show honeycombing with mostly lower lobe predominance, consistent with pulmonary fibrosis. There were some scattered infiltrates within the right mid and lower lung shah. Atypical pneumonia was not excluded. Also, has history of RA which she take hydroxychloroquine. 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 Patient is currently sitting up in bed, on 4 L/m nasal cannula, in no acute distress. She did have a low-grade temp with a T-max of 99.8F. CBC on arrival showed mild leukocytosis with WBC count 11.7, hemoglobin 8.6, hematocrit 28.5, platelets 517. BMP on arrival shows sodium 133, potassium 4.4, chloride 106, serum bicarbonate 20, BUN 14, creatinine 0.64, glucose 103. Lactate 1.7. Troponin less than 0.012. NT proBNP was elevated at 7310. No IV maintenance fluids infusing. Negative for influenza, RSV, COVID-19. Empirically being covered with azithromycin. Overall, the patient is hemodynamically stable, and was admitted to the cardiac stepdown unit. On today's evaluation of 11/19 2022, the patient is being seen for a follow-up. The patient is stable on 4 L of oxygen by nasal cannula. The patient remains on a combination of Zosyn and Zithromax and the patient is also on daptomycin. The patient is afebrile. The patient is hemodynamically stable. The patient is also on IV Solu-Medrol 60 mg every 6 hours. No new labs are available from today. Most recent labs are from yesterday. The pro-calcitonin level is at 0.28. No interval worsening shortness of breath. In fact, the patient is feeling slightly improved compared to yesterday. Echo was also done the patient was found to have moderate degree of aortic stenosis with mild aortic regurgitation, normal LV, moderate MR without evidence of any pulmonary hypertension. On 11/20/2022, the patient is feeling well. No specific complaints. A repeat chest x-ray was done and the patient was found to have marked improvement in the bilateral pulmonary infiltrates and the patient is clinically improving and the chest x-ray findings are also better on today's evaluation. The patient remains on IV Solu-Medrol. The patient remains on Zosyn and Zithromax. The patient remains on daptomycin for septic arthritis. All of the cultures are negative for now. The patient has no specific complaints otherwise. Objective - Vital Signs Vital signs: Vital Signs Temp 99.1 F 11/20/22 11:54 Pulse 68 11/20/22 11:54 Resp 20 11/20/22 11:54 BP 101/47 11/20/22 11:54 Pulse Ox 98 11/20/22 11:54 FiO2 Intake & Output 11/19/22 11/20/22 11/20/22 18:59 06:59 18:59 Intake Total 990 240 Output Total 125 Balance 990 -125 240 Weight 46 kg Intake: Intake, IV Titration 150 Amount DAPTOmycin 500 mg In 50 Sodium Chloride 0.9% 50 ml @ 100 mls/hr IVPB Q24HR [facility] Rx#:[id number] Piperacillin-Tazobactam 3 100 .375 gm In Sodium Chloride 0.9% 100 ml @ 25 mls/hr IVPB Q8HR [facility] Rx# :[id number] Oral 840 240 Output: Urine 125 Other: Voiding Method External Catheter External Catheter External Catheter - Exam GENERAL EXAM: Alert, 67-year-old white female, comfortable in no apparent distress., The patient is currently on 3 L of oxygen by nasal cannula HEAD: Normocephalic and atraumatic EYES: Normal reaction of pupils, equal size. NOSE: Clear with pink turbinates. THROAT: No erythema or exudates. NECK: No masses, no JVD. CHEST: No chest wall deformity. Barrel chest. LUNGS: Equal air entry with inspiratory bibasilar Velcro crackles, worse on the right. No wheezes, rhonchi, focal dullness. CVS: S1 and S2 normal with a systolic ejection murmur grade 3/6, regular rhythm. No extra heart sounds ABDOMEN: No hepatosplenomegaly, active bowel sounds, no guarding or rigidity. SPINE: No scoliosis or deformity SKIN: No rashes CENTRAL NERVOUS SYSTEM: No focal deficits, tone is normal in all 4 extremities. EXTREMITIES: Left knee has a incisional scar that is well approximated without any erythema or swelling. There is no peripheral edema, clubbing, or cyanosis. Right lower extremity pedal and posterior tibial pulses are difficult to palpate, bilateral lower extremities are warm with good capillary refill. - Labs CBC & Chem 7: 11/18/22 03:54 11/18/22 03:54 Labs: Abnormal Lab Results - Last 24 Hours (Table) 11/19/22 11/19/22 11/20/22 Range/Units 16:24 20:07 06:03 POC Glucose (mg/dL) 148 H 183 H 159 H (70-110) mg/dL 11/20/22 Range/Units 11:47 POC Glucose (mg/dL) 256 H (70-110) mg/dL Microbiology - Last 24 Hours (Table) 11/17/22 15:30 Blood Culture - Preliminary Blood 11/17/22 15:45 Blood Culture - Preliminary Blood Assessment and Plan Assessment: Acute hypoxemic respiratory failure, currently on 3 L/m nasal cannula, possibly multifactorial related to a combination of a healthcare associated pneumonia and mild COPD exacerbation. Follow up Chest CTA on arrival did not show any evidence of pulmonary embolism. It did show extensive consolidation with air bronchogr ams. There was honeycombing with mostly lower lobe predominance, consistent with pulmonary fibrosis. Has history of RA which she take hydroxychloroquine. 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 There were some scattered infiltrates within the right mid and lower lung shah. There was a 1.2 cm right infrahilar node. Atypical pneumonia was not excluded. Negative for influenza, RSV, COVID-19. Acute bilateral pneumonia, improving clinically and the chest x-ray shows improvement in the right the pulmonary infiltrates on today's chest x-ray History of left total knee replacement and septic arthritis, isolated organism on October 09 positive MRSA, receiving IV antibiotics outpatient Leukocytosis Mild Chronic obstructive pulmonary disease, with a baseline FEV1 72% of predicted. Anemia of chronic disease Aortic stenosis, repeat echocardiogram showed a moderate degree of aortic stenosis with a preserved LV Coronary artery disease, with previous coronary artery bypass graft Peripheral arterial disease History of CVA/TIA Benign essential hypertension Hyperlipidemia Rheumatoid arthritis, maintained on hydroxychloroquine History of chronic nicotine dependence, approximately 50 pack years, quit smoking 3 months ago Plan: Clinically improving Chest x-rays improving Wean down FiO2 currently on 3 L and should be able to wean her down further Continue Zosyn and Zithromax for now as an empiric antibiotic coverage Continue daptomycin regarding the septic knee Keep the patient 4 L O2 nasal cannula Pro calcitonin level is mildly elevated Echocardiogram showed a moderate degree of aortic stenosis Repeat chest x-ray tomorrow Attempt to wean down FiO2 as tolerated to maintain a saturation above 90%
--- NOTE | 2022-11-20 14:37 | P.PN ---
Subjective Progress Note Date: 11/20/22 Patient is a 67-year-old female with PMH of hypertension, CAD, COPD, GERD, history of CVA, hypertension, dyslipidemia, rheumatoid arthritis with history of left knee surgery and admission on 10/09 for septic arthritis requiring transfer to [facility] where she underwent orthopedic surgery and discharged to [facility] on IV antibiotics is sent from [facility] for hypoxia and fever. Patient states that she is generally feeling well. She reports a cough productive of clear sputum. She denies any shortness of breath. States that she has been on oxygen since her discharge from [facility]. She denies any headache, lower extremity edema, nausea or vomiting, fever or chills, chest pain, palpitations, changes in urination or bowel habits. No changes in appetite or weight. She denies any dizziness, numbness/weakness/tingling of the extremities. In the ED, she had a T-max of 99.8 Fahrenheit. She was saturating 97% on 2 L nasal cannula. Vital signs otherwise stable. CBC showed WBC count o f 11.7, hemoglobin of 8.6 and platelet count of 517. INR was 1.1. D-dimer 3.68. CMP showed sodium 133, bicarb 20, glucose 103, alkaline phosphatase 128, albumin 2.6. Magnesium 1.5. Troponin less than 0.012. Lactic acid 1.7. BNP 7310. COVID-19, RSV, influenza negative. Chest x-ray showed findings of pulmonary edema. CTA chest was done which showed no PE, pulmonary fibrosis. Patient is admitted for fever and hypoxia. 11/18 Patient was seen and examined. She reports no complaints today. CBC shows WBC count of 12.5, Hg 8.1, Plt 480. BMP shows Na 132, bicarb 21. Mag 1.7. Procalcitonin 0.28. 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 started on Solumedrol 60 mg IV Q6H and Zosyn is added to cover for HCAP, sputum culture ordered. Cardiology consulted, IV lasix discontinued for 20 mg PO QD. Echocardiogram is pending. Currently 92% on 4L NC at rest. 11/19 Patient was seen and examined. She reports no complaints Currently on 4L NC. Pulmonology recommends continued IV antibiotics for treatment of PNA and repeat CXR tomorrow. Procal elevated at 0.28. Echo shows normal LV size and sy stolic function, moderate , mild AR, moderate MR and mild TR. 11/20 Patient was seen and examined. She reports no complaints. Currently on 2L NC. Discussed with Dr. Sandoval, continue antibiotics for one more day. Patient wants to go home on discharge. She will need home health and IV antibiotics set up for home likely on Tuesday. CXR shows bilateral infiltrate thought improved when compared to CXR on admission. General: non toxic, no distress, appears at stated age Derm: warm, dry Head: atraumatic, normocephalic, symmetric Eyes: EOMI, no lid lag, anicteric sclera Mouth: no lip lesion, mucus membranes moist Cardiovascular: S1S2 reg, + murmur Lungs: Decreased breath sounds bilateral, no rhonchi, no rales , no accessory muscle use Ext: no gross muscle atrophy, no edema, no contractures, left knee braced Neuro: no focal neuro deficits Psych: Alert, oriented, appropriate affect Acute hypoxic respiratory failure likely secondary to pulmonary fibrosis and HCAP Low grade fever Leukocytosis Elevated d-dimer Hyponatremia Normocytic anemia with thrombocytosis Chronic conditions: Hypertension, CAD, COPD, GERD, history of CVA, Hypertension, Dyslipidemia, Rheumatoid arthritis with history of Septic arthritis Based on my assessment of this patient, this patient meets a moderate complexity level of care. Patient has an acute diagnosis of acute hypoxic respiratory failure with CTA chest showing pulmonary fibrosis and possible atypical pneumonia that poses a threat to life or bodily function. Patient is immunocompromise given her history of RA. Acute hypoxic respiratory failure likely secondary to pulmonary fibrosis and HCAP: DuoNeb 4 times a day scheduled and albuterol neb as needed for shortness of breath and wheezing. Pulmicort INH. Robitussin as needed for cough. Azithromycin 500 mg PO QD for concerns of acute bronchitis. Zosyn 3.375 g IV Q8H. Telemetry monitoring. Cardiology and Pulmonology on board. Low grade fever: Flu, RSV, COVID 19 negative. Recent diagnosis of septic arthritis. Restart Daptomycin IV. Azithromycin for acute bronchitis. Zosyn is added as above. Leukocytosis Elevated d-dimer: CTA chest ruled out PE. Hyponatremia Normocytic anemia with thrombocytosis Decision maker: Brother FULL CODE. Lovenox SQ for DVT prophylaxis. I have reviewed the following information security consultant notes: Pulmonology note I have reviewed the results of the following tests: I have ordered the following tests: I have discussed the care of this patient with the following independent historian: I have independently interpreted the following test below: I have discussed the management of this patient with the following physician: Discussed with Dr. Sandoval. Objective - Vital Signs Vital signs: Vital Signs Temp 99.1 F 11/20/22 11:54 Pulse 68 11/20/22 11:54 Resp 20 11/20/22 11:54 BP 101/47 11/20/22 11:54 Pulse Ox 98 11/20/22 11:54 FiO2 Intake & Output 11/19/22 11/20/22 11/20/22 18:59 06:59 18:59 Intake Total 990 240 Output Total 125 Balance 990 -125 240 Weight 46 kg Intake: Intake, IV Titration 150 Amount DAPTOmycin 500 mg In 50 Sodium Chloride 0.9% 50 ml @ 100 mls/hr IVPB Q24HR [facility] Rx#:[id number] Piperacillin-Tazobactam 3 100 .375 gm In Sodium Chloride 0.9% 100 ml @ 25 mls/hr IVPB Q8HR [facility] Rx# :[id number] Oral 840 240 Output: Urine 125 Other: Voiding Method External Catheter External Catheter External Catheter - Labs CBC & Chem 7: 11/18/22 03:54 11/18/22 03:54 Labs: Abnormal Lab Results - Last 24 Hours (Table) 11/19/22 11/19/22 11/20/22 Range/Units 16:24 20:07 06:03 POC Glucose (mg/dL) 148 H 183 H 159 H (70-110) mg/dL 11/20/22 Range/Units 11:47 POC Glucose (mg/dL) 256 H (70-110) mg/dL Microbiology - Last 24 Hours (Table) 11/17/22 15:30 Blood Culture - Preliminary Blood 11/17/22 15:45 Blood Culture - Preliminary Blood
[2022-11-20] MEDS: AZITHROMYCIN 500 MG TAB PO SCH (15:54)
[2022-11-20 16:41] LABS: Glucose,Whole Blood 197 mg/dL (70-110)
[2022-11-20 20:14] LABS: Glucose,Whole Blood 222 mg/dL (70-110)
[2022-11-20] MEDS: traZODone HCL 50 MG TAB PO SCH (20:29)
[2022-11-20] MEDS: ATORVASTATIN 10 MG TAB PO SCH (20:29)
[2022-11-21] MEDS: PIPERACILLIN-TAZOBACTAM 3.375 GM in SODIUM CHLORIDE 0.9% 100 ML IVPB SCH ×4 (01:22→23:04)
[2022-11-21] MEDS: methylPREDNISolone SOD SUCCI 125 MG/2 ML VIAL IV SCH ×4 (01:22→20:01)
[2022-11-21 06:06] LABS: Glucose,Whole Blood 195 mg/dL (70-110)
[2022-11-21] MEDS: INSULIN ASPART (NovoLOG) 100 UNIT/ML VIAL SQ SCH ×4 (06:15→20:23)
[2022-11-21] MEDS: PANTOPRAZOLE 40 MG TABLET PO SCH (06:15)
[2022-11-21] MEDS: IPRATROPIUM-ALBUTEROL 3 ML NEB INHALATION SCH ×4 (07:45→21:32)
[2022-11-21] MEDS: BUDESONIDE 1 MG/2 ML NEBU INHALATION SCH (07:45)
[2022-11-21] MEDS: ENOXAPARIN 40 MG/0.4 ML SYRINGE SQ SCH (09:39)
[2022-11-21] MEDS: DAPTOmycin 500 MG in SODIUM CHLORIDE 0.9% 50 ML IVPB SCH (09:41)
[2022-11-21] MEDS: FUROSEMIDE 20 MG TAB PO SCH (09:44)
[2022-11-21] MEDS: CITALOPRAM HYDROBROMIDE 20 MG TAB PO SCH (09:44)
[2022-11-21] MEDS: SENNOSIDES 8.6 MG TAB PO SCH ×2 (09:44→20:01)
[2022-11-21] MEDS: ISOSORBIDE MONONITRATE ER 30 MG TAB.ER.24H PO SCH (09:44)
[2022-11-21] MEDS: METOPROLOL TARTRATE 50 MG TAB PO SCH ×2 (09:44→20:01)
[2022-11-21] MEDS: ASPIRIN 81 MG PO SCH (09:44)
[2022-11-21] MEDS: FERROUS SULFATE 325 MG TAB PO SCH (09:44)
[2022-11-21] MEDS: HYDROXYCHLOROQUINE SULFATE 200 MG TAB PO SCH ×2 (09:44→20:01)
[2022-11-21] MEDS: lisinopriL 10 MG TAB PO SCH (09:45)
[2022-11-21 11:36] LABS: Glucose,Whole Blood 125 mg/dL (70-110)
--- NOTE | 2022-11-21 11:56 | P.PN ---
Subjective Progress Note Date: 11/21/22 I am seeing this patient in consultation today 11/18/2022 after she was transferred from [facility] for shortness of breath and hypoxia. Patient is a 67-year-old white female with past medical history significant for left total knee replacement with recent admission for septic arthritis on October 09 and transferred to [facility], COPD, ex-smoker, coronary artery disease with previous CABG, aortic stenosis, peripheral arterial disease, GERD, CVA, hypertension, hyperlipidemia, and rheumatoid arthritis. Patient has been at [facility] for about one month, since her discharge from [facility]. She has been receiving IV antibiotics through a left arm PICC line. Cultures of the knee were positive for MRSA back on October 09, and the patient has been restarted on daptomycin. Knee hardware was reportedly removed. She has not walked since March. While at [facility], the patient has been progressively more short of breath, usually just during exertion. She has been on supplemental oxygen, which she previously did not need. She does have history of mild COPD with a baseline FEV1 72 % of predicted. She has seen Dr. Campos in the office before, but does not routinely follow. She does have significant smoking history of 1 pack per day for almost 50 years. Quit smoking 3 months ago. Yesterday afternoon, the patient was transferred to the emergency room for hypoxia and low-grade fever. Admits a chronic cough, mostly dry and nonproductive. Denies any chest pain, heart palpitations, lower extremity swelling, orthopnea. Chest x-ray on admission was concerning for asymmetric pulmonary edema. Follow-up Chest CTA on arrival did not show any evidence of pulmonary embolism. It did show honeycombing with mostly lower lobe predominance, consistent with pulmonary fibrosis. There were some scattered infiltrates within the right mid and lower lung shah. Atypical pneumonia was not excluded. Also, has history of RA which she take hydroxychloroquine. 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 Patient is currently sitting up in bed, on 4 L/m nasal cannula, in no acute distress. She did have a low-grade temp with a T-max of 99.8F. CBC on arrival showed mild leukocytosis with WBC count 11.7, hemoglobin 8.6, hematocrit 28.5, platelets 517. BMP on arrival shows sodium 133, potassium 4.4, chloride 106, serum bicarbonate 20, BUN 14, creatinine 0.64, glucose 103. Lactate 1.7. Troponin less than 0.012. NT proBNP was elevated at 7310. No IV maintenance fluids infusing. Negative for influenza, RSV, COVID-19. Empirically being covered with azithromycin. Overall, the patient is hemodynamically stable, and was admitted to the cardiac stepdown unit. On today's evaluation of 11/19 2022, the patient is being seen for a follow-up. The patient is stable on 4 L of oxygen by nasal cannula. The patient remains on a combination of Zosyn and Zithromax and the patient is also on daptomycin. The patient is afebrile. The patient is hemodynamically stable. The patient is also on IV Solu-Medrol 60 mg every 6 hours. No new labs are available from today. Most recent labs are from yesterday. The pro-calcitonin level is at 0.28. No interval worsening shortness of breath. In fact, the patient is feeling slightly improved compared to yesterday. Echo was also done the patient was found to have moderate degree of aortic stenosis with mild aortic regurgitation, normal LV, moderate MR without evidence of any pulmonary hypertension. On 11/20/2022, the patient is feeling well. No specific complaints. A repeat chest x-ray was done and the patient was found to have marked improvement in the bilateral pulmonary infiltrates and the patient is clinically improving and the chest x-ray findings are also better on today's evaluation. The patient remains on IV Solu-Medrol. The patient remains on Zosyn and Zithromax. The patient remains on daptomycin for septic arthritis. All of the cultures are negative for now. The patient has no specific complaints otherwise. My 2022, the patient is improving. No new complaints. She remains on 2 L of oxygen nasal cannula. She remains on the same antibiotic regimen. A follow-up chest x-rays to be done tomorrow. Echo cardiogram showed a moderate degree of aortic stenosis. She remains on Zosyn and Zithromax and the patient is also on daptomycin. No interval worsening shortness of breath. In fact, the patient continues to improve clinically Objective - Vital Signs Vital signs: Vital Signs Temp 98.4 F 11/21/22 04:00 Pulse 74 11/21/22 08:03 Resp 18 11/21/22 04:00 BP 132/61 11/21/22 04:00 Pulse Ox 96 11/21/22 07:46 FiO2 Intake & Output 11/20/22 11/21/22 11/21/22 18:59 06:59 18:59 Intake Total 480 Output Total 300 275 Balance 180 -275 Weight 48.4 kg Intake: Oral 480 Output: Urine 300 275 Other: Voiding Method External Catheter External Catheter # Bowel Movements 1 - Exam GENERAL EXAM: Alert, 67-year-old white female, comfortable in no apparent distress., The patient is currently on 3 L of oxygen by nasal cannula HEAD: Normocephalic and atraumatic EYES: Normal reaction of pupils, equal size. NOSE: Clear with pink turbinates. THROAT: No erythema or exudates. NECK: No masses, no JVD. CHEST: No chest wall deformity. Barrel chest. LUNGS: Equal air entry with inspiratory bibasilar Velcro crackles, worse on the right. No wheezes, rhonchi, focal dullness. CVS: S1 and S2 normal with a systolic ejection murmur grade 3/6, regular rhythm. No extra heart sounds ABDOMEN: No hepatosplenomegaly, active bowel sounds, no guarding or rigidity. SPINE: No scoliosis or deformity SKIN: No rashes CENTRAL NERVOUS SYSTEM: No focal deficits, tone is normal in all 4 extremities. EXTREMITIES: Left knee has a incisional scar that is well approximated without any erythema or swelling. There is no peripheral edema, clubbing, or cyanosis. Right lower extremity pedal and posterior tibial pulses are difficult to palpate, bilateral lower extremities are warm with good capillary refill. - Labs CBC & Chem 7: 11/18/22 03:54 11/18/22 03:54 Labs: Abnormal Lab Results - Last 24 Hours (Table) 11/20/22 11/20/22 11/20/22 Range/Units 11:47 16:40 20:12 POC Glucose (mg/dL) 256 H 197 H 222 H (70-110) mg/dL 11/21/22 Range/Units 06:04 POC Glucose (mg/dL) 195 H (70-110) mg/dL Microbiology - Last 24 Hours (Table) 11/17/22 15:30 Blood Culture - Preliminary Blood 11/17/22 15:45 Blood Culture - Preliminary Blood Assessment and Plan Assessment: Acute hypoxemic respiratory failure, currently on 2 L/m nasal cannula, possibly multifactorial related to a combination of a healthcare associated pneumonia and mild COPD exacerbation. Follow up Chest CTA on arrival did not show any evidence of pulmonary embolism. It did show extensive consolidation with air bronchograms. There was honeycombing with mostly lower lobe predominance, consistent with pulmonary fibrosis. Has history of RA which she take hydroxychloroquine. 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 There were some scattered infiltrates within the right mid and lower lung shah. There was a 1.2 cm right infrahilar node. Atypical pneumonia was not excluded. Negative for influenza, RSV, COVID- 19. Acute bilateral pneumonia, improving clinically and the chest x-ray shows improvement in the right the pulmonary infiltrates on today's chest x-ray History of left total knee replacement and septic arthritis, isolated organism on October 09 positive MRSA, receiving IV antibiotics outpatient Leukocytosis Mild Chronic obstructive pulmonary disease, with a baseline FEV1 72% of predicted. Anemia of chronic disease Aortic stenosis, repeat echocardiogram showed a moderate degree of aortic stenosis with a preserved LV Coronary artery disease, with previous coronary artery bypass graft Peripheral arterial disease History of CVA/TIA Benign essential hypertension Hyperlipidemia Rheumatoid arthritis, maintained on hydroxychloroquine History of chronic nicotine dependence, approximately 50 pack years, quit smoking 3 months ago Plan: Clinically improving Chest x-rays improving, Repeating another chest x-ray in the morning Wean down FiO2 currently on Barbara and should be able to wean her down further Continue Zosyn and Zithromax for now as an empiric antibiotic coverage Continue daptomycin regarding the septic knee Pro calcitonin level is mildly elevated Echocardiogram showed a moderate degree of aortic stenosis Attempt to wean down FiO2 as tolerated to maintain a saturation above 90%
--- NOTE | 2022-11-21 13:17 | P.PN ---
Subjective Progress Note Date: 11/21/22 Patient is a 67-year-old female with PMH of hypertension, CAD, COPD, GERD, history of CVA, hypertension, dyslipidemia, rheumatoid arthritis with history of left knee surgery and admission on 10/09 for septic arthritis requiring transfer to [facility] where she underwent orthopedic surgery and discharged to [facility] on IV antibiotics is sent from [facility] for hypoxia and fever. Patient states that she is generally feeling well. She reports a cough productive of clear sputum. She denies any shortness of breath. States that she has been on oxygen since her discharge from [facility]. She denies any headache, lower extremity edema, nausea or vomiting, fever or chills, chest pain, palpitations, changes in urination or bowel habits. No changes in appetite or weight. She denies any dizziness, numbness/weakness/tingling of the extremities. In the ED, she had a T-max of 99.8 Fahrenheit. She was saturating 97% on 2 L nasal cannula. Vital signs otherwise stable. CBC showed WBC count o f 11.7, hemoglobin of 8.6 and platelet count of 517. INR was 1.1. D-dimer 3.68. CMP showed sodium 133, bicarb 20, glucose 103, alkaline phosphatase 128, albumin 2.6. Magnesium 1.5. Troponin less than 0.012. Lactic acid 1.7. BNP 7310. COVID-19, RSV, influenza negative. Chest x-ray showed findings of pulmonary edema. CTA chest was done which showed no PE, pulmonary fibrosis. Patient is admitted for fever and hypoxia. 11/18 Patient was seen and examined. She reports no complaints today. CBC shows WBC count of 12.5, Hg 8.1, Plt 480. BMP shows Na 132, bicarb 21. Mag 1.7. Procalcitonin 0.28. 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 started on Solumedrol 60 mg IV Q6H and Zosyn is added to cover for HCAP, sputum culture ordered. Cardiology consulted, IV lasix discontinued for 20 mg PO QD. Echocardiogram is pending. Currently 92% on 4L NC at rest. 11/19 Patient was seen and examined. She reports no complaints Currently on 4L NC. Pulmonology recommends continued IV antibiotics for treatment of PNA and repeat CXR tomorrow. Procal elevated at 0.28. Echo shows normal LV size and sy stolic function, moderate , mild AR, moderate MR and mild TR. 11/20 Patient was seen and examined. She reports no complaints. Currently on 2L NC. Discussed with Dr. Sandoval, continue antibiotics for one more day. Patient wants to go home on discharge. She will need home health and IV antibiotics set up for home likely on Tuesday. CXR shows bilateral infiltrate thought improved when compared to CXR on admission. 11/21 Patient was seen and examined. She reports no complaints. Currently on 2L NC. Pulmonology recommends continue antibiotics and repeat CXR tomorrow. Hopeful plans for discharge tomorrow after home O2 eval and home health set up for IV Abx at home. General: non toxic, no distress, appears at stated age Derm: warm, dry Head: atraumatic, normocephalic, symmetric Eyes: EOMI, no lid lag, anicteric sclera Cardiovascular: good distal perfusion in all 4 extremities Lungs: breathing comfortably , no accessory muscle use Ext: no gross muscle atrophy, no edema, no contractures, left knee braced Neuro: no focal neuro deficits Psych: Alert, oriented, appropriate affect Acute hypoxic respiratory failure likely secondary to pulmonary fibrosis and HCAP Low grade fever Leukocytosis Elevated d-dimer Hyponatremia Normocytic anemia with thrombocytosis Chronic conditions: Hypertension, CAD, COPD, GERD, history of CVA, Hypertension, Dyslipidemia, Rheumatoid arthritis with history of Septic arthritis Based on my assessment of this patient, this patient meets a moderate complexity level of care. Patient has an acute diagnosis of acute hypoxic respiratory failure with CTA chest showing pulmonary fibrosis and possible atypical pneumonia that poses a threat to life or bodily function. Patient is immunocompromise given her history of RA. Acute hypoxic respiratory failure likely secondary to pulmonary fibrosis and HCAP: DuoNeb 4 times a day scheduled and albuterol neb as needed for shortness of breath and wheezing. Pulmicort INH. Robitussin as needed for cough. Azithromycin 500 mg PO QD for concerns of acute bronchitis. Zosyn 3.375 g IV Q8H. Telemetry monitoring. Cardiology and Pulmonology on board. Low grade fever: Flu, RSV, COVID 19 negative. Recent diagnosis of septic arthritis. Restart Daptomycin IV. Azithromycin and Zosyn is added for treatment of HCAP. Leukocytosis Elevated d-dimer: CTA chest ruled out PE. Hyponatremia Normocytic anemia with thrombocytosis Decision maker: Brother FULL CODE. Lovenox SQ for DVT prophylaxis. I have reviewed the following building performance consultant notes: Pulmonology note I have reviewed the results of the following tests: I have ordered the following tests: I have discussed the care of this patient with the following independent hi storian: I have independently interpreted the following test below: I have discussed the management of this patient with the following physician: Objective - Vital Signs Vital signs: Vital Signs Temp 98.7 F 11/21/22 09:35 Pulse 72 11/21/22 11:24 Resp 18 11/21/22 09:35 BP 115/57 11/21/22 09:35 Pulse Ox 95 11/21/22 09:35 FiO2 Intake & Output 11/20/22 11/21/22 11/21/22 18:59 06:59 18:59 Intake Total 480 240 Output Total 300 275 Balance 180 -275 240 Weight 48.4 kg Intake: Oral 480 240 Output: Urine 300 275 Other: Voiding Method External Catheter External Catheter External Catheter # Bowel Movements 1 - Labs CBC & Chem 7: 11/18/22 03:54 11/18/22 03:54 Labs: Abnormal Lab Results - Last 24 Hours (Table) 11/20/22 11/20/22 11/21/22 Range/Units 16:40 20:12 06:04 POC Glucose (mg/dL) 197 H 222 H 195 H (70-110) mg/dL 11/21/22 Range/Units 11:35 POC Glucose (mg/dL) 125 H (70-110) mg/dL Microbiology - Last 24 Hours (Table) 11/17/22 15:30 Blood Culture - Preliminary Blood 11/17/22 15:45 Blood Culture - Preliminary Blood
[2022-11-21 16:24] LABS: Glucose,Whole Blood 177 mg/dL (70-110)
[2022-11-21] MEDS: ATORVASTATIN 10 MG TAB PO SCH (20:01)
[2022-11-21] MEDS: traZODone HCL 50 MG TAB PO SCH (20:01)
[2022-11-21 20:06] LABS: Glucose,Whole Blood 240 mg/dL (70-110)
[2022-11-22] MEDS: methylPREDNISolone SOD SUCCI 125 MG/2 ML VIAL IV SCH ×2 (02:14→08:44)
[2022-11-22 06:19] LABS: Glucose,Whole Blood 162 mg/dL (70-110)
[2022-11-22] MEDS: PANTOPRAZOLE 40 MG TABLET PO SCH (06:38)
[2022-11-22] MEDS: INSULIN ASPART (NovoLOG) 100 UNIT/ML VIAL SQ SCH ×4 (06:38→19:52)
[2022-11-22] MEDS: BUDESONIDE 1 MG/2 ML NEBU INHALATION SCH (07:35)
[2022-11-22] MEDS: IPRATROPIUM-ALBUTEROL 3 ML NEB INHALATION SCH ×4 (07:35→22:38)
[2022-11-22] MEDS: METOPROLOL TARTRATE 50 MG TAB PO SCH ×2 (08:42→20:06)
[2022-11-22] MEDS: ENOXAPARIN 40 MG/0.4 ML SYRINGE SQ SCH (08:42)
[2022-11-22] MEDS: HYDROXYCHLOROQUINE SULFATE 200 MG TAB PO SCH ×2 (08:42→20:05)
[2022-11-22] MEDS: FERROUS SULFATE 325 MG TAB PO SCH (08:42)
[2022-11-22] MEDS: CITALOPRAM HYDROBROMIDE 20 MG TAB PO SCH (08:42)
[2022-11-22] MEDS: ISOSORBIDE MONONITRATE ER 30 MG TAB.ER.24H PO SCH (08:42)
[2022-11-22] MEDS: ASPIRIN 81 MG PO SCH (08:42)
[2022-11-22] MEDS: lisinopriL 10 MG TAB PO SCH (08:42)
[2022-11-22] MEDS: SENNOSIDES 8.6 MG TAB PO SCH ×3 (08:42→20:13)
[2022-11-22] MEDS: FUROSEMIDE 20 MG TAB PO SCH (08:42)
[2022-11-22] MEDS: DAPTOmycin 500 MG in SODIUM CHLORIDE 0.9% 50 ML IVPB SCH (08:43)
[2022-11-22] MEDS: PIPERACILLIN-TAZOBACTAM 3.375 GM in SODIUM CHLORIDE 0.9% 100 ML IVPB SCH (08:44)
--- NOTE | 2022-11-22 09:17 | XR ---
EXAMINATION TYPE: XR chest 1V DATE OF EXAM: 11/22/2022 6:59 AM CLINICAL INDICATION:Female, 67 years old with history of Follow-up pneumonia; [facility] COMPARISON: Chest radiographs from 11/20/2022 TECHNIQUE: XR chest 1V Frontal view of the chest. FINDINGS: Lungs/Pleura: Improved aeration of the lungs. Persistent multifocal airspace opacities cardiac. No ev idence of pneumothorax or pleural effusion. Pulmonary vascularity: Unremarkable. Heart/mediastinum: Cardiomediastinal silhouette is unremarkable. Musculoskeletal: No acute osseous pathology. Midline sternotomy wires are noted. Other findings: Right upper quadrant cholecystectomy clips. Lines/Tubes: Left internal jugular central venous catheter with distal tip at the cavoatrial junction. IMPRESSION: 1. Improved aeration of the lungs. 2. Stable left PICC line position.
[2022-11-22 11:37] LABS: Glucose,Whole Blood 137 mg/dL (70-110)
--- NOTE | 2022-11-22 13:28 | P.PN ---
Subjective Progress Note Date: 11/22/22 I am seeing this patient in consultation today 11/18/2022 after she was transferred from [facility] for shortness of breath and hypoxia. Patient is a 67-year-old white female with past medical history significant for left total knee replacement with recent admission for septic arthritis on October 09 and transferred to [facility], COPD, ex-smoker, coronary artery disease with previous CABG, aortic stenosis, peripheral arterial disease, GERD, CVA, hypertension, hyperlipidemia, and rheumatoid arthritis. Patient has been at [facility] for about one month, since her discharge from [facility]. She has been receiving IV antibiotics through a left arm PICC line. Cultures of the knee were positive for MRSA back on October 09, and the patient has been restarted on daptomycin. Knee hardware was reportedly removed. She has not walked since March. While at [facility], the patient has been progressively more short of breath, usually just during exertion. She has been on supplemental oxygen, which she previously did not need. She does have history of mild COPD with a baseline FEV1 72 % of predicted. She has seen Dr. Campos in the office before, but does not routinely follow. She does have significant smoking history of 1 pack per day for almost 50 years. Quit smoking 3 months ago. Yesterday afternoon, the patient was transferred to the emergency room for hypoxia and low-grade fever. Admits a chronic cough, mostly dry and nonproductive. Denies any chest pain, heart palpitations, lower extremity swelling, orthopnea. Chest x-ray on admission was concerning for asymmetric pulmonary edema. Follow-up Chest CTA on arrival did not show any evidence of pulmonary embolism. It did show honeycombing with mostly lower lobe predominance, consistent with pulmonary fibrosis. There were some scattered infiltrates within the right mid and lower lung shah. Atypical pneumonia was not excluded. Also, has history of RA which she take hydroxychloroquine. 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 Patient is currently sitting up in bed, on 4 L/m nasal cannula, in no acute distress. She did have a low-grade temp with a T-max of 99.8F. CBC on arrival showed mild leukocytosis with WBC c ount 11.7, hemoglobin 8.6, hematocrit 28.5, platelets 517. BMP on arrival shows sodium 133, potassium 4.4, chloride 106, serum bicarbonate 20, BUN 14, creatinine 0.64, glucose 103. Lactate 1.7. Troponin less than 0.012. NT proBNP was elevated at 7310. No IV maintenance fluids infusing. Negative for influenza, RSV, COVID-19. Empirically being covered with azithromycin. Overall, the patient is hemodynamically stable, and was admitted to the cardiac stepdown unit. On today's evaluation of 11/19 2022, the patient is being seen for a follow-up. The patient is stable on 4 L of oxygen by nasal cannula. The patient remains on a combination of Zosyn and Zithromax and the patient is also on daptomycin. The patient is afebrile. The patient is hemodynamically stable. The patient is also on IV Solu-Medrol 60 mg every 6 hours. No new labs are available from today. Most recent labs are from yesterday. The pro-calcitonin level is at 0.28. No interval worsening shortness of breath. In fact, the patient is feeling slightly improved compared to yesterday. Echo was also done the patient was found to have moderate degree of aortic stenosis with mild aortic regurgitation, normal LV, moderate MR without evidence of any pulmonary hypertension. On 11/20/2022, the patient is feeling well. No specific complaints. A repeat chest x-ray was done and the patient was found to have marked improvement in the bilateral pulmonary infiltrates and the patient is clinically improving and the chest x-ray findings are also better on today's evaluation. The patient remains on IV Solu-Medrol. The patient remains on Zosyn and Zithromax. The patient remains on daptomycin for septic arthritis. All of the cultures are negative for now. The patient has no specific complaints otherwise. My 2022, the patient is improving. No new complaints. She remains on 2 L of oxygen nasal cannula. She remains on the same antibiotic regimen. A follow-up chest x-rays to be done tomorrow. Echo cardiogram showed a moderate degree of aortic stenosis. She remains on Zosyn and Zithromax and the patient is also on daptomycin. No interval worsening shortness of breath. In fact, the patient continues to improve clinically The patient is seen today 11/22/2022 in follow-up in follow-up on the selective care unit. She is currently sitting up in bed. Awake and alert in no acute distress. She is feeling nearly back to her baseline. Follow-up chest x-ray shows improved aeration of the lungs. Blood cultures revealing no growth. Sugar 137. She is continued on DuoNeb inhalations, Pulmicort and Perforomist inhalations, Solu-Medrol. Antibiotics in form of daptomycin and Zosyn. Lovenox for DVT prophylaxis. Objective - Vital Signs Vital signs: Vital Signs Temp 98.2 F 11/22/22 08:00 Pulse 78 11/22/22 10:53 Resp 18 11/22/22 08:00 BP 132/64 11/22/22 08:00 Pulse Ox 95 11/22/22 08:00 FiO2 Intake & Output 11/21/22 11/22/22 11/22/22 18:59 06:59 18:59 Intake Total 480 340 Output Total 450 775 625 Balance 30 -759 -418 Weight 49.1 kg Intake: Intake, IV Titration 100 Amount Piperacillin-Tazobactam 3 100 .375 gm In Sodium Chloride 0.9% 100 ml @ 25 mls/hr IVPB Q8HR [facility] Rx# :[id number] Oral 480 240 Output: Urine 450 775 625 Other: Voiding Method External Catheter External Catheter External Catheter - Exam GENERAL EXAM: Alert, very pleasant 67-year-old female, on 2 L/m per nasal cannula, comfortable in no apparent distress. HEAD: Normocephalic. EYES: Normal reaction of pupils, equal size. NOSE: Clear with pink turbinates. THROAT: No erythema or exudates. NECK: No masses, no JVD. CHEST: No chest wall deformity. LUNGS: Equal air entry with faint Velcro crackles in the bilateral bases. CVS: S1 and S2 normal with an audible murmur, regular rhythm. ABDOMEN: No hepatosplenomegaly, normal bowel sounds, no guarding or rigidity. SPINE: No scoliosis or deformity SKIN: No rashes CENTRAL NERVOUS SYSTEM: No focal deficits, tone is normal in all 4 extremities. EXTREMITIES: Incisional scar of the left knee. There is no peripheral edema. No clubbing, no cyanosis. Peripheral pulses are intact. - Labs CBC & Chem 7: 11/18/22 03:54 11/18/22 03:54 Labs: Abnormal Lab Results - Last 24 Hours (Table) 11/21/22 11/21/22 11/22/22 Range/Units 16:23 20:05 06:17 POC Glucose (mg/dL) 177 H 240 H 162 H (70-110) mg/dL 11/22/22 Range/Units 11:30 POC Glucose (mg/dL) 137 H (70-110) mg/dL Assessment and Plan Assessment: Acute hypoxemic respiratory failure, currently on 2 L/m nasal cannula, possibly multifactorial related to a combination of a healthcare associated pneumonia and mild COPD exacerbation. Follow up Chest CTA on arrival did not show any evidence of pulmonary embolism. It did show extensive consolidation with air bronchograms. There was honeycombing with mostly lower lobe predominance, consistent with pulmonary fibrosis. Has history of RA which she take hydroxychloroquine. 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 There were some scattered infiltrates within the right mid and lower lung shah. There was a 1.2 cm right infrahilar node. Atypical pneumonia was not excluded. Pro-calcitonin 0.28. Negative for influenza, RSV, COVID-19. Acute bilateral pneumonia, improving clinically and the chest x-ray shows improvement in the right the pulmonary infiltrates on today's chest x-ray History of left total knee replacement and septic arthritis, isolated organism on October 09 positive MRSA, receiving IV antibiotics outpatient Leukocytosis Mild Chronic obstructive pulmonary disease, with a baseline FEV1 72% of predicted. Anemia of chronic disease Aortic stenosis, repeat echocardiogram showed a moderate degree of aortic stenosis with a preserved LV Coronary artery disease, with previous coronary artery bypass graft Peripheral arterial disease History of CVA/TIA Benign essential hypertension Hyperlipidemia Rheumatoid arthritis, maintained on hydroxychloroquine History of chronic nicotine dependence, approximately 50 pack years, quit smoking 3 months ago Plan: The patient was seen and evaluated Chest x-ray, labs and medications reviewed Feeling stable and back to her baseline Cleared for discharge from the pulmonary standpoint Continue her home pulmonary medications Complete a course of antibiotics Complete a prednisone taper Follow-up in the office in 1 week I have personally seen and examined the patient, performed the documentation and the assessment and plan as written. Number of minutes spent on the visit: 10.
--- NOTE | 2022-11-22 14:29 | P.PN ---
Subjective Progress Note Date: 11/22/22 Patient is a 67-year-old female with PMH of hypertension, CAD, COPD, GERD, history of CVA, hypertension, dyslipidemia, rheumatoid arthritis with history of left knee surgery and admission on 10/09 for septic arthritis requiring transfer to [facility] where she underwent orthopedic surgery and discharged to [facility] on IV antibiotics is sent from [facility] for hypoxia and fever. Patient states that she is generally feeling well. She reports a cough productive of clear sputum. She denies any shortness of breath. States that she has been on oxygen since her discharge from [facility]. She denies any headache, lower extremity edema, nausea or vomiting, fever or chills, chest pain, palpitations, changes in urination or bowel habits. No changes in appetite or weight. She denies any dizziness, numbness/weakness/tingling of the extremities. In the ED, she had a T-max of 99.8 Fahrenheit. She was saturating 97% on 2 L nasal cannula. Vital signs otherwise stable. CBC showed WBC count o f 11.7, hemoglobin of 8.6 and platelet count of 517. INR was 1.1. D-dimer 3.68. CMP showed sodium 133, bicarb 20, glucose 103, alkaline phosphatase 128, albumin 2.6. Magnesium 1.5. Troponin less than 0.012. Lactic acid 1.7. BNP 7310. COVID-19, RSV, influenza negative. Chest x-ray showed findings of pulmonary edema. CTA chest was done which showed no PE, pulmonary fibrosis. Patient is admitted for fever and hypoxia. 11/18 Patient was seen and examined. She reports no complaints today. CBC shows WBC count of 12.5, Hg 8.1, Plt 480. BMP shows Na 132, bicarb 21. Mag 1.7. Procalcitonin 0.28. Pulmonology consulted, possible ILD from RA or pulmonary fibrosis from previous COVID infection. Started on Solumedrol 60 mg IV Q6H and Zosyn is added to cover for HCAP, sputum culture ordered. Cardiology consulted, IV lasix discontinued for 20 mg PO QD. Echocardiogram is pending. Currently 92% on 4L NC at rest. 11/19 Patient was seen and examined. She reports no complaints Currently on 4L NC. Pulmonology recommends continued IV antibiotics for treatment of PNA and repeat CXR tomorrow. Procal elevated at 0.28. Echo shows normal LV size and systolic function, moderate , mild AR, moderate MR and mild TR. 11/20 Patient was seen and examined. She reports no complaints. Currently on 2L NC. Discussed with Dr. Sandoval, continue antibiotics for one more day. Patient wants to go home on discharge. She will need home health and IV antibiotics set up for home likely on Tuesday. CXR shows bilateral infiltrate thought improved when compared to CXR on admission. 11/21 Patient was seen and examined. She reports no complaints. Currently on 2L NC. Pulmonology recommends continue antibiotics and repeat CXR tomorrow. Hopeful plans for discharge tomorrow after home O2 eval and home health set up for IV Abx at home. 11/22 Patient was seen and examined. She reports no complaints. Currently on 2L NC. CXR done today shows improved aeration of the lungs. Her Zosyn has been switched to Augmentin by mouth. From a pulmonary standpoint she is cleared for discharge. Previously admitted from 10/09-10/11 for concerns of septic arthritis, transferred to [facility] where she underwent orthopedic procedure and eventually discharged to [facility] on IV antibiotics with a PICC line. Patient would now like to go home on discharge instead of back to [facility]. Case was discussed with Orthopedic resident at [facility], patient was discharged on 10/20 on Daptomycin 500 mg IV x 6 weeks and Ertapenem IV x 2 weeks. She has completed her course of Ertapenem but is still continued on Daptomycin 500 mg IV QD until 12/01. Case management on board to obtain antibiotics for home. This was discussed with Tino. Discharge pending insurance authorization for IV antibiotics. General: non toxic, no distress, appears at stated age Derm: warm, dry Head: atraumatic, normocephalic, symmetric Eyes: EOMI, no lid lag, anicteric sclera Cardiovascular: good distal perfusion in all 4 extremities Lungs: breathing comfortably , no accessory muscle use Ext: no gross muscle atrophy, no edema, no contractures, left knee braced Neuro: no focal neuro deficits Psych: Alert, oriented, appropriate affect Acute hypoxic respiratory failure likely secondary to pulmonary fibrosis and HCAP Low grade fever History of septic arthritis Elevated d-dimer Hyponatremia Normocytic anemia with thrombocytosis Chronic conditions: Hypertension, CAD, COPD, GERD, history of CVA, Hypertension, Dyslipidemia, Rheumatoid arthritis with history of Septic arthritis Based on my assessment of this patient, this patient meets a moderate complexity level of care. Patient has an acute diagnosis of acute hypoxic respiratory failure with CTA chest showing pulmonary fibrosis and possible atypical pneumonia that poses a threat to life or bodily function. Patient is immunocompromise given her history of RA. Acute hypoxic respiratory failure likely secondary to pulmonary fibrosis and HCAP: DuoNeb 4 times a day scheduled and albuterol neb as needed for shortness of breath and wheezing. Pulmicort INH. Robitussin as needed for cough. Completed a course of Azithromycin and Zosyn which was transitioned to Augmentin by Pulmonology today. Telemetry monitoring. Cardiology and Pulmonology on board. Home O2 eval prior to discharge. Low grade fever: Flu, RSV, COVID 19 negative. History of septic arthritis: Daptomycin 500 mg IV QD until 12/01. Elevated d-dimer: CTA chest ruled out PE. Hyponatremia: Improving. Normocytic anemia with thrombocytosis: Stable. Decision maker: Brother FULL CODE. Lovenox SQ for DVT prophylaxis. I have reviewed the following individual pension consultant notes: Pulmonology note I have reviewed the results of the following tests: POC glucose. I have ordered the following tests: I have discussed the care of this patient with the following independent historian: Discussed with Tino CANELA. I have independently interpreted the following test below: CXR I have discussed the management of this patient with the following physician: Case discussed with Orthopedic resident at [facility] as above Objective - Vital Signs Vital signs: Vital Signs Temp 98.2 F 11/22/22 08:00 Pulse 62 11/22/22 12:00 Resp 18 11/22/22 12:00 BP 132/60 11/22/22 12:00 Pulse Ox 96 11/22/22 12:00 FiO2 Intake & Output 11/21/22 11/22/22 11/22/22 18:59 06:59 18:59 Intake Total 480 340 Output Total 450 315 804 Balance 33 -397 -584 Weight 49.1 kg Intake: Intake, IV Titration 100 Amount Piperacillin-Tazobactam 3 100 .375 gm In Sodium Chloride 0.9% 100 ml @ 25 mls/hr IVPB Q8HR [facility] Rx# :[id number] Oral 480 240 Output: Urine 450 775 625 Other: Voiding Method External Catheter External Catheter External Catheter - Labs CBC & Chem 7: 11/18/22 03:54 11/18/22 03:54 Labs: Abnormal Lab Results - Last 24 Hours (Table) 11/21/22 11/21/22 11/22/22 Range/Units 16:23 20:05 06:17 POC Glucose (mg/dL) 177 H 240 H 162 H (70-110) mg/dL 11/22/22 Range/Units 11:30 POC Glucose (mg/dL) 137 H (70-110) mg/dL
[2022-11-22 16:34] LABS: Glucose,Whole Blood 156 mg/dL (70-110)
[2022-11-22 19:44] LABS: Glucose,Whole Blood 179 mg/dL (70-110)
[2022-11-22] MEDS: traZODone HCL 50 MG TAB PO SCH (20:05)
[2022-11-22] MEDS: AMOXIC-POT CLAV 875-125MG 1 EACH TAB PO SCH (20:05)
[2022-11-22] MEDS: ATORVASTATIN 10 MG TAB PO SCH (20:06)
[2022-11-22 21:38] VITALS: RESP 16
[2022-11-23 06:15] LABS: Glucose,Whole Blood 87 mg/dL (70-110)
[2022-11-23] MEDS: INSULIN ASPART (NovoLOG) 100 UNIT/ML VIAL SQ SCH ×3 (06:33→17:26)
[2022-11-23] MEDS: PANTOPRAZOLE 40 MG TABLET PO SCH (06:34)
[2022-11-23] MEDS: BUDESONIDE 1 MG/2 ML NEBU INHALATION SCH (07:23)
[2022-11-23] MEDS: IPRATROPIUM-ALBUTEROL 3 ML NEB INHALATION SCH ×3 (07:23→15:40)
[2022-11-23] MEDS ORDERED: predniSONE 20 MG TAB PO SCH (09:00)
[2022-11-23] MEDS: DAPTOmycin 500 MG in SODIUM CHLORIDE 0.9% 50 ML IVPB SCH (09:27)
[2022-11-23] MEDS: ASPIRIN 81 MG PO SCH (09:28)
[2022-11-23] MEDS: METOPROLOL TARTRATE 50 MG TAB PO SCH (09:28)
[2022-11-23] MEDS: ISOSORBIDE MONONITRATE ER 30 MG TAB.ER.24H PO SCH (09:28)
[2022-11-23] MEDS: SENNOSIDES 8.6 MG TAB PO SCH (09:28)
[2022-11-23] MEDS: ENOXAPARIN 40 MG/0.4 ML SYRINGE SQ SCH (09:28)
[2022-11-23] MEDS: FERROUS SULFATE 325 MG TAB PO SCH (09:28)
[2022-11-23] MEDS: lisinopriL 10 MG TAB PO SCH (09:28)
[2022-11-23] MEDS: CITALOPRAM HYDROBROMIDE 20 MG TAB PO SCH (09:28)
[2022-11-23] MEDS: AMOXIC-POT CLAV 875-125MG 1 EACH TAB PO SCH (09:28)
[2022-11-23] MEDS: FUROSEMIDE 20 MG TAB PO SCH (09:28)
[2022-11-23] MEDS: HYDROXYCHLOROQUINE SULFATE 200 MG TAB PO SCH (09:29)
[2022-11-23 10:01] LABS: Anisocytosis Slight; Basophils % (A) 0 %; Eosinophils # (A) 0.5 k/uL (0-0.7); Eosinophils % (A) 4 %; HCT 33.2 % (34.0-46.0); Hypochromasia Marked; Lymphocytes # (A) 1.4 k/uL (1.0-4.8); Lymphocytes % (A) 11 %; MCH 27.3 pg (25.0-35.0); MCHC 29.9 g/dL (31.0-37.0); MCV 91.3 fL (80.0-100.0); Mean Platelet Volume 6.7; Monocytes # (A) 0.6 k/uL (0-1.0); Monocytes % (A) 5 %; Neutrophils # (A) 10.2 k/uL (1.3-7.7); Neutrophils % (A) 79 %; Platelet Count 589 k/uL (150-450); RBC 3.63 m/uL (3.80-5.40); RDW 16.8 % (11.5-15.5); WBC 12.9 k/uL (3.8-10.6)
[2022-11-23 10:02] LABS: African American GFR (CKD) >90 (>60 ml/min/1.73 sqM); Anion Gap 5 mmol/L; Blood Urea Nitrogen 37 mg/dL (7-17); Calcium 8.7 mg/dL (8.4-10.2); Carbon Dioxide 24 mmol/L (22-30); Chloride 105 mmol/L (98-107); Glucose 98 mg/dL (74-99); Magnesium 1.8 mg/dL (1.6-2.3); Non-African American GFR(CKD) >90 (>60 ml/min/1.73 sqM); Potassium 4.6 mmol/L (3.5-5.1); Sodium 134 mmol/L (137-145)
[2022-11-23 10:03] LABS: HGB 9.9 gm/dL (11.4-16.0)
[2022-11-23 11:56] LABS: Glucose,Whole Blood 90 mg/dL (70-110)
[2022-11-23 13:18] VITALS: BP 96/50; PULSE 56; TEMP 99
--- NOTE | 2022-11-23 14:26 | P.PN ---
Subjective Progress Note Date: 11/23/22 I am seeing this patient in consultation today 11/18/2022 after she was transferred from [facility] for shortness of breath and hypoxia. Patient is a 67-year-old white female with past medical history significant for left total knee replacement with recent admission for septic arthritis on October 09 and transferred to [facility], COPD, ex-smoker, coronary artery disease with previous CABG, aortic stenosis, peripheral arterial disease, GERD, CVA, hypertension, hyperlipidemia, and rheumatoid arthritis. Patient has been at [facility] for about one month, since her discharge from [facility]. She has been receiving IV antibiotics through a left arm PICC line. Cultures of the knee were positive for MRSA back on October 09, and the patient has been restarted on daptomycin. Knee hardware was reportedly removed. She has not walked since March. While at [facility], the patient has been progressively more short of breath, usually just during exertion. She has been on supplemental oxygen, which she previously did not need. She does have history of mild COPD with a baseline FEV1 72 % of predicted. She has seen Dr. Campos in the office before, but does not routinely follow. She does have significant smoking history of 1 pack per day for almost 50 years. Quit smoking 3 months ago. Yesterday afternoon, the patient was transferred to the emergency room for hypoxia and low-grade fever. Admits a chronic cough, mostly dry and nonproductive. Denies any chest pain, heart palpitations, lower extremity swelling, orthopnea. Chest x-ray on admission was concerning for asymmetric pulmonary edema. Follow-up Chest CTA on arrival did not show any evidence of pulmonary embolism. It did show honeycombing with mostly lower lobe predominance, consistent with pulmonary fibrosis. There were some scattered infiltrates within the right mid and lower lung shah. Atypical pneumonia was not excluded. Also, has history of RA which she take hydroxychloroquine. 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 Patient is currently sitting up in bed, on 4 L/m nasal cannula, in no acute distress. She did have a low-grade temp with a T-max of 99.8F. CBC on arrival showed mild leukocytosis with WBC c ount 11.7, hemoglobin 8.6, hematocrit 28.5, platelets 517. BMP on arrival shows sodium 133, potassium 4.4, chloride 106, serum bicarbonate 20, BUN 14, creatinine 0.64, glucose 103. Lactate 1.7. Troponin less than 0.012. NT proBNP was elevated at 7310. No IV maintenance fluids infusing. Negative for influenza, RSV, COVID-19. Empirically being covered with azithromycin. Overall, the patient is hemodynamically stable, and was admitted to the cardiac stepdown unit. On today's evaluation of 11/19 2022, the patient is being seen for a follow-up. The patient is stable on 4 L of oxygen by nasal cannula. The patient remains on a combination of Zosyn and Zithromax and the patient is also on daptomycin. The patient is afebrile. The patient is hemodynamically stable. The patient is also on IV Solu-Medrol 60 mg every 6 hours. No new labs are available from today. Most recent labs are from yesterday. The pro-calcitonin level is at 0.28. No interval worsening shortness of breath. In fact, the patient is feeling slightly improved compared to yesterday. Echo was also done the patient was found to have moderate degree of aortic stenosis with mild aortic regurgitation, normal LV, moderate MR without evidence of any pulmonary hypertension. On 11/20/2022, the patient is feeling well. No specific complaints. A repeat chest x-ray was done and the patient was found to have marked improvement in the bilateral pulmonary infiltrates and the patient is clinically improving and the chest x-ray findings are also better on today's evaluation. The patient remains on IV Solu-Medrol. The patient remains on Zosyn and Zithromax. The patient remains on daptomycin for septic arthritis. All of the cultures are negative for now. The patient has no specific complaints otherwise. My 2022, the patient is improving. No new complaints. She remains on 2 L of oxygen nasal cannula. She remains on the same antibiotic regimen. A follow-up chest x-rays to be done tomorrow. Echo cardiogram showed a moderate degree of aortic stenosis. She remains on Zosyn and Zithromax and the patient is also on daptomycin. No interval worsening shortness of breath. In fact, the patient continues to improve clinically The patient is seen today 11/22/2022 in follow-up in follow-up on the selective care unit. She is currently sitting up in bed. Awake and alert in no acute distress. She is feeling nearly back to her baseline. Follow-up chest x-ray shows improved aeration of the lungs. Blood cultures revealing no growth. Sugar 137. She is continued on DuoNeb inhalations, Pulmicort and Perforomist inhalations, Solu-Medrol. Antibiotics in form of daptomycin and Zosyn. Lovenox for DVT prophylaxis. Patient is seen today 11/23/2022 in follow-up on the selective care unit. She i s awake and alert in no acute distress. Resting fairly comfortably in bed. Good O2 saturations in the 90s on 2 L/m per nasal cannula. Blood cultures revealed no growth. White count 12.9. Hemoglobin 9.9. Platelets 589. Sodium 134. Potassium 4.6. Bicarb 24. BUN 37. Creatinine 0.69. Currently in a negative balance. She remains on DuoNeb inhalations, Pulmicort inhalations, prednisone. She remains on oral diuretics. Lovenox for DVT prophylaxis. Antibiotics in the form of Augmentin. She had MRSA in the left knee wound from 10/09/2022 and remains on daptomycin. Objective - Vital Signs Vital signs: Vital Signs Temp 99 F 11/23/22 13:00 Pulse 56 L 11/23/22 13:00 Resp 16 11/23/22 13:00 BP 96/50 11/23/22 13:00 Pulse Ox 92 L 11/23/22 13:00 FiO2 Intake & Output 11/22/22 11/23/22 11/23/22 18:59 06:59 18:59 Intake Total 416 780 Output Total 925 300 700 Balance -509 -300 80 Intake: Oral 416 780 Output: Urine 925 300 700 Other: Voiding Method External Catheter External Catheter External Catheter - Exam GENERAL EXAM: Alert, 67-year-old female, on 2 L/m per nasal cannula, comfortable in no apparent distress. HEAD: Normocephalic. EYES: Normal reaction of pupils, equal size. NOSE: Clear with pink turbinates. THROAT: No erythema or exudates. NECK: No masses, no JVD. CHEST: No chest wall deformity. LUNGS: Equal air entry with faint Velcro crackles in the bilateral bases. CVS: S1 and S2 normal with an audible murmur, regular rhythm. ABDOMEN: No hepatosplenomegaly, normal bowel sounds, no guarding or rigidity. SPINE: No scoliosis or deformity SKIN: No rashes CENTRAL NERVOUS SYSTEM: No focal deficits, tone is normal in all 4 extremities. EXTREMITIES: Incisional scar of the left knee. There is no peripheral edema. No clubbing, no cyanosis. Peripheral pulses are intact. - Labs CBC & Chem 7: 11/23/22 09:21 11/23/22 09:21 Labs: Abnormal Lab Results - Last 24 Hours (Table) 11/22/22 11/22/22 11/23/22 Range/Units 16:32 19:41 09:21 WBC 12.9 H (3.8-10.6) k/uL RBC 3.63 L (3.80-5.40) m/uL Hgb 9.9 L D (11.4-16.0) gm/dL Hct 33.2 L (34.0-46.0) % MCHC 29.9 L (31.0-37.0) g/dL RDW 16.8 H (11.5-15.5) % Plt Count 589 H (150-450) k/uL Neutrophils # 10.2 H (1.3-7.7) k/uL Sodium (137-145) mmol/L BUN (7-17) mg/dL POC Glucose (mg/dL) 156 H 179 H (70-110) mg/dL 11/23/22 Range/Units 09:21 WBC (3.8-10.6) k/uL RBC (3.80-5.40) m/uL Hgb (11.4-16.0) gm/dL Hct (34.0-46.0) % MCHC (31.0-37.0) g/dL RDW (11.5-15.5) % Plt Count (150-450) k/uL Neutrophils # (1.3-7.7) k/uL Sodium 134 L (137-145) mmol/L BUN 37 H (7-17) mg/dL POC Glucose (mg/dL) (70-110) mg/dL Microbiology - Last 24 Hours (Table) 11/17/22 15:30 Blood Culture - Final Blood 11/17/22 15:45 Blood Culture - Final Blood Assessment and Plan Assessment: Acute hypoxemic respiratory failure, currently on 2 L/m nasal cannula, possibly multifactorial related to a combination of a healthcare associated pneumonia and mild COPD exacerbation. Follow up Chest CTA on arrival did not show any evidence of pulmonary embolism. It did show extensive consolidation with air bronchograms. There was honeycombing with mostly lower lobe predominance, consistent with pulmonary fibrosis. Has history of RA which she take hydroxychloroquine. 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 There were some scattered infiltrates within the right mid and lower lung shah. There was a 1.2 cm right infrahilar node. Atypical pneumonia was not excluded. Pro-calcitonin 0.28. Negative for influenza, RSV, COVID-19. Acute bilateral pneumonia, improving clinically and the chest x-ray shows improvement in the right the pulmonary infiltrates on follow-up chest x-ray, remains on Augmentin History of left total knee replacement and septic arthritis, isolated organism on October 09 positive MRSA, receiving IV daptomycin outpatient Leukocytosis Mild Chronic obstructive pulmonary disease, with a baseline FEV1 72% of predicted. Anemia of chronic disease Aortic stenosis, repeat echocardiogram showed a moderate degree of aortic stenosis with a preserved LV Coronary artery disease, with previous coronary artery bypass graft Peripheral arterial disease History of CVA/TIA Benign essential hypertension Hyperlipidemia Rheumatoid arthritis, maintained on hydroxychloroquine History of chronic nicotine dependence, approximately 50 pack years, quit smoking 3 months ago Plan: The patient was seen and evaluated Labs and medications reviewed Stable and back to her baseline Cleared for discharge from the pulmonary standpoint Evaluate for possible home oxygen Continue her home pulmonary medications Complete a course of Augmentin Complete a course of daptomycin Complete a prednisone taper Follow-up in the office in 1 week I have personally seen and examined the patient, performed the documentation and the assessment and plan as written. Number of minutes spent on the visit: 10.
--- NOTE | 2022-11-23 17:15 | P.DS ---
Providers Date of admission: 11/17/22 18:07 Expected date of discharge: 11/23/22 Attending physician: Raúl Estrada MD Consults: 11/17/22 18:07 Consult Physician Routine Consulting Provider: Gabo Simental Consult Reason/Comments: Diastolic CHF Do you want consulting provider notified?: Yes Consult Physician Stat Consulting Provider: Alexandra Sandoval Consult Reason/Comments: Pulm fibrosis Do you want consulting provider notified?: Yes Primary care physician: Olivier Trinidad Hospital Course: Acute hypoxic respiratory failure likely secondary to pulmonary fibrosis and HCAP History of septic arthritis Elevated d-dimer Hyponatremia Normocytic anemia with thrombocytosis Chronic conditions: Hypertension, CAD, COPD, GERD, history of CVA, Hypertension, Dyslipidemia, Rheumatoid arthritis Hospital Course: Patient is a 67-year-old female with PMH of hypertension, CAD, COPD, GERD, history of CVA, hypertension, dyslipidemia, rheumatoid arthritis with history of left knee surgery and admission on 10/09 for septic arthritis requiring transfer to [facility] where she underwent orthopedic surgery and discharged to [facility] on IV antibiotics is sent from [facility] for hypoxia and fever. In the ED, she had a T-max of 99.8 Fahrenheit. She was saturating 97% on 2 L nasal cannula. Vital signs otherwise stable. CBC showed WBC count of 11.7, hemoglobin of 8.6 and platelet count of 517. INR was 1.1. D-dimer 3.68. CMP showed sodium 133, bicarb 20, glucose 103, alkaline phosphatase 128, albumin 2.6. Magnesium 1.5. Troponin less than 0.012. Lactic acid 1.7. BNP 7310. COVID-19, RSV, influenza negative. Chest x-ray showed findings of pulmonary edema. CTA chest was done which showed no PE, pulmonary fibrosis. Patient was admitted for fever and hypoxia. 11/18 CBC shows WBC count of 12.5, Hg 8.1, Plt 480. BMP shows Na 132, bicarb 21. Mag 1.7. Procalcitonin 0.28. Pulmonology consulted, possible ILD from RA or pulmonary fibrosis from previous COVID infection. Started on Solumedrol 60 mg IV Q6H and Zosyn is added to cover for HCAP, sputum culture ordered. Cardiology consulted, IV lasix discontinued for 20 mg PO QD 11/19 Pulmonology recommended continued IV antibiotics for treatment of PNA and repeat CXR tomorrow. Procal elevated at 0.28. Echo showed normal LV size and systolic function, moderate , mild AR, moderate MR and mild TR. 11/[address] Sandoval, continued antibiotics for one more day. Patient wants to go home on discharge. She will need home health and IV antibiotics set up for home likely on Tuesday. CXR shows bilateral infiltrate thought improved when compared to CXR on admission. 11/21 Pulmonology recommends continued antibiotics and repeat CXR tomorrow. Hopeful plans for discharge tomorrow after home O2 eval and home health set up for IV Abx at home. 11/22 CXR done today shows improved aeration of the lungs. Her Zosyn has been switched to Augmentin by mouth. From a pulmonary standpoint she is cleared for discharge. Previously admitted from 10/09-10/11 for concerns of septic arthritis, transferred to [facility] where she underwent orthopedic procedure and eventually discharged to [facility] on IV antibiotics with a PICC line. Patient would now like to go home on discharge instead of back to [facility]. Case was discussed with Orthopedic resident at [facility], patient was discharged on 10/20 on Daptomycin 500 mg IV x 6 weeks and Ertapenem IV x 2 weeks. She has completed her course of Ertapenem but is still continued on Daptomycin 500 mg IV QD until 12/01. Case management on board to obtain antibiotics for home. This was discussed with Tino. Discharge pending insurance authorization for IV antibiotics. 11/23 Pt stable for discharge. Today I confirmed anti-biotic duration with patient's orthopedic surgery team at [facility]. She is due for another 8 days of daptomycin to be completed on 12/01. This was discussed with [facility] who set up home IV abx. Pt was assessed for home oxygen while on room air at rest and was found to require 2L NC, which was arranged through [facility]. Pt discharged home with home care services, IV abx, and home oxygen. She will f/u with PCP. I spent 50 minutes coordinating this complex discharge on 11/23 Gen: awake, alert HEENT: normocephalic, atraumatic, good hearing acuity, moist mucous membranes Resp: good air exchange, breathing comfortably with no accessory muscle use, CVS: good distal perfusion x 4, GI: soft, NTTP, ND : no SPT, no CVAT, phelps catheter not present MSK: no pitting edema, no clubbing Neuro: non-focal, moving all extremities Psych: cooperative, euthymic mood Patient Condition at Discharge: Good Plan - Discharge Summary Discharge Rx Participant: Yes New Discharge Prescriptions: New Amoxic-Pot Clav 875-125Mg [Augmentin 875-125] 1 each PO Q12HR #2 tab Furosemide [Lasix] 20 mg PO DAILY #30 tab predniSONE [Deltasone] See Rx Instructions .ROUTE .COMPLEX #8 tab Continue Isosorbide Mononitrate [Imdur] 30 mg PO DAILY Metoprolol Tartrate [Lopressor] 50 mg PO BID Omeprazole 20 mg PO DAILY traZODone HCL 50 mg PO HS Acetaminophen [Tylenol Arthritis] 650 mg PO Q4H PRN PRN Reason: Pain DAPTOmycin [Cubicin] 500 mg IV DAILY Albuterol Nebulized [Ventolin Nebulized] 2.5 mg INHALATION RT-Q4H PRN PRN Reason: Shortness Of Breath Ipratropium-Albuterol Nebulize [Duoneb 0.5 mg-3 mg/3 ml Soln] 3 ml INHALATION RT-QID@05,11,17,23 Healthshake 1 dose PO BID-W/MEALS Quercetin 500 mg PO DAILY Citalopram Hydrobromide [CeleXA] 20 mg PO DAILY Atorvastatin [Lipitor] 10 mg PO HS Aspirin EC [Ecotrin Low Dose] 81 mg PO DAILY Ascorbic Acid [Vitamin C] 1,000 mg PO DAILY Hydroxychloroquine Sulfate [Plaquenil] 200 mg PO BID oxyCODONE HCL [OxyIR] 5 mg PO Q4H PRN PRN Reason: Pain guaiFENesin [guaiFENesin Oral Solution] 400 mg PO Q4H PRN PRN Reason: Cough Diclofenac Sodium [Voltaren Arthritis Pain 1% Gel] 1 gm TOPICAL QID@08,12,16,20 Sennosides [Senokot] 8.6 mg PO BID Heparin Sodium,Porcine (1 ml) [Heparin Sodium] 5,000 unit SQ TID@0500,1300,2100 Zinc Gluconate [Zinc] 25 mg PO DAILY Budesonide [Pulmicort] 1 mg INHALATION RT-DAILY lisinopriL [Prinivil] 10 mg PO DAILY Ferrous Sulfate [Iron (65 MG Elemental)] 325 mg PO DAILY Ergocalciferol (Vitamin D2) [Drisdol (50,000 Iu)] 1,250 mcg PO Discontinued Azithromycin [Zithromax] 500 mg PO DAILY Discharge Medication List Isosorbide Mononitrate [Imdur] 30 mg PO DAILY 11/22/13 [History] Metoprolol Tartrate [Lopressor] 50 mg PO BID 01/19/17 [History] Omeprazole 20 mg PO DAILY 01/19/17 [History] traZODone HCL 50 mg PO HS 02/26/19 [History] Acetaminophen [Tylenol Arthritis] 650 mg PO Q4H PRN 05/19/22 [History] Hydroxychloroquine Sulfate [Plaquenil] 200 mg PO BID 10/09/22 [History] Albuterol Nebulized [Ventolin Nebulized] 2.5 mg INHALATION RT-Q4H PRN 11/17/22 [History] Ascorbic Acid [Vitamin C] 1,000 mg PO DAILY 11/17/22 [History] Aspirin EC [Ecotrin Low Dose] 81 mg PO DAILY 11/17/22 [History] Atorvastatin [Lipitor] 10 mg PO HS 11/17/22 [History] Budesonide [Pulmicort] 1 mg INHALATION RT-DAILY 11/17/22 [History] Citalopram Hydrobromide [CeleXA] 20 mg PO DAILY 11/17/22 [History] DAPTOmycin [Cubicin] 500 mg IV DAILY 11/17/22 [History] Diclofenac Sodium [Voltaren Arthritis Pain 1% Gel] 1 gm TOPICAL QID@08,12,16,20 11/17/22 [History] Ergocalciferol (Vitamin D2) [Drisdol (50,000 Iu)] 1,250 mcg PO TU 11/17/22 [History] Ferrous Sulfate [Iron (65 MG Elemental)] 325 mg PO DAILY 11/17/22 [History] Healthshake 1 dose PO BID-W/MEALS 11/17/22 [History] Heparin Sodium,Porcine (1 ml) [Heparin Sodium] 5,000 unit SQ TID@0500,1300,2100 11/17/22 [History] Ipratropium-Albuterol Nebulize [Duoneb 0.5 mg-3 mg/3 ml Soln] 3 ml INHALATION RT-QID@05,11,17,23 11/17/22 [History] Quercetin 500 mg PO DAILY 11/17/22 [History] Sennosides [Senokot] 8.6 mg PO BID 11/17/22 [History] Zinc Gluconate [Zinc] 25 mg PO DAILY 11/17/22 [History] guaiFENesin [guaiFENesin Oral Solution] 400 mg PO Q4H PRN 11/17/22 [History] lisinopriL [Prinivil] 10 mg PO DAILY 11/17/22 [History] oxyCODONE HCL [OxyIR] 5 mg PO Q4H PRN 11/17/22 [History] Amoxic-Pot Clav 875-125Mg [Augmentin 875-125] 1 each PO Q12HR #2 tab 11/23/22 [Rx] Furosemide [Lasix] 20 mg PO DAILY #30 tab 11/23/22 [Rx] predniSONE [Deltasone] See Rx Instructions .ROUTE .COMPLEX #8 tab 11/23/22 [Rx] Follow up Appointment(s)/Referral(s): Gabo Simental MD [STAFF PHYSICIAN] - 12/02/22 8:45 am Aneudy Campos DO [Doctor of Osteopathic Medicine] - 12/16/22 9:15 am [facility], [NON-STAFF] - 11/24/22 (will start tomorrow 11/24/22 to teach you antibiotic infusion. ) [facility], [REFERRING] - 11/23/22 (will deliver tonight between 6- 8PM) Olivier Trinidad DO [Primary Care Provider] - 12/03/22 2:20 pm Patient Instructions/Handouts: Heart Failure (DC), COPD (Chronic Obstructive Pulmonary Disease) (DC) Discharge Disposition: HOME WITH HOME HEALTH SERVICES
== END 2022-11-23 17:48 | disposition home health service (06) | DRG 193 ==
LOC: EC 14:39 → 3SCARD 18:07
PROVIDERS: ADMIT Family Medicine; ATTEND Family Medicine
DX: J15.9 Unspecified bacterial pneumonia (principal); J96.01 Acute respiratory failure with hypoxia; E87.1 Hypo-osmolality and hyponatremia; J44.1 Chronic obstructive pulmonary disease with (acute) exacerbation; J44.0 Chronic obstructive pulmonary disease with (acute) lower respiratory infection; Y95 Nosocomial condition; D75.839 Thrombocytosis, unspecified; J84.10 Pulmonary fibrosis, unspecified; J20.9 Acute bronchitis, unspecified; I10 Essential (primary) hypertension; E83.42 Hypomagnesemia; I25.10 Atherosclerotic heart disease of native coronary artery without angina pectoris; K21.9 Gastro-esophageal reflux disease without esophagitis; E78.5 Hyperlipidemia, unspecified; M06.9 Rheumatoid arthritis, unspecified; Z20.822 Contact with and (suspected) exposure to COVID-19; Z96.652 Presence of left artificial knee joint; M41.9 Scoliosis, unspecified; M19.90 Unspecified osteoarthritis, unspecified site; I65.29 Occlusion and stenosis of unspecified carotid artery; I08.0 Rheumatic disorders of both mitral and aortic valves; I73.9 Peripheral vascular disease, unspecified; F41.9 Anxiety disorder, unspecified; R79.1 Abnormal coagulation profile; F32.A Depression, unspecified; D63.8 Anemia in other chronic diseases classified elsewhere; Z86.73 Personal history of transient ischemic attack (TIA), and cerebral infarction without residual deficits; Z88.5 Allergy status to narcotic agent; Z95.5 Presence of coronary angioplasty implant and graft; Z95.1 Presence of aortocoronary bypass graft; Z86.16 Personal history of COVID-19; Z86.14 Personal history of Methicillin resistant Staphylococcus aureus infection; Z85.41 Personal history of malignant neoplasm of cervix uteri; Z79.899 Other long term (current) drug therapy; Z79.82 Long term (current) use of aspirin; Z79.51 Long term (current) use of inhaled steroids; Z87.891 Personal history of nicotine dependence
CPT/HCPCS: 36415; 71045; 71046; 71275; 80048; 80053; 83605; 83735; 83880; 84145; 84484; 85025; 85379; 85610; 85730; 87040; 87636; 93005; 93306; 94640; 94760; 96365; 96375; 99291

== ENCOUNTER 2022-12-10 14:13 | Emergency (ER) | payer MEDICARE, OTHER ==
[2022-12-10 14:31] VITALS: PULSE 94
[2022-12-10] MEDS ORDERED: LIDOCAINE/EPINEPHR/TETRACAINE 5 ML BOTTLE TOPICAL ONE (14:41)
[2022-12-10] MEDS ORDERED: OXYMETAZOLINE 0.05% NASL SPRAY 1 SPRAY BOTTLE NASAL STA (14:41)
[2022-12-10] MEDS ORDERED: SILVER NITRATE APPLICATOR 1 EACH STICK..EA. TOPICAL STA (14:42)
[2022-12-10] MEDS ORDERED: ACETAMINOPHEN TAB 500 MG TAB PO STA (14:56)
[2022-12-10] MEDS ORDERED: BACITRACIN OINT 1 EACH PACKET TOPICAL ONE (15:29)
--- NOTE | 2022-12-10 15:43 | ED ---
General Adult HPI - General Chief complaint: ENT Stated complaint: nose bleed Time Seen by Provider: 12/10/22 14:19 Source: patient, EMS, RN notes reviewed Mode of arrival: EMS - History of Present Illness Initial comments: Patient's a 67-year-old female presented to the emergency room today with a chief complaint of epistaxis. She does admit that symptoms started approximatel y 2 hours prior to arrival. She states she was just sitting which started having some bleeding coming which is mostly from the right nostril. Patient states that she's had nosebleeds in the past. She is up and able to stop them at home. Patient does admit that she is not on any blood thinners. She denies any injury or trauma. Denies any other complaints or symptoms.Patient denies any recent fever, chills, shortness of breath, chest pain, back pain, abdominal pain, nausea or vomiting, numbness or tingling, headaches or visual changes, or any other complaints. - Related Data Home Medications Medication Instructions Recorded Confirmed Isosorbide Mononitrate [Imdur] 30 mg PO DAILY 11/22/13 11/17/22 Metoprolol Tartrate [Lopressor] 50 mg PO BID 01/19/17 11/17/22 Omeprazole 20 mg PO DAILY 01/19/17 11/17/22 traZODone HCL 50 mg PO HS 02/26/19 11/17/22 Acetaminophen [Tylenol Arthritis] 650 mg PO Q4H PRN 05/19/22 11/17/22 Hydroxychloroquine Sulfate 200 mg PO BID 10/09/22 11/17/22 [Plaquenil] Albuterol Nebulized [Ventolin 2.5 mg INHALATION RT-Q4H PRN 11/17/22 11/17/22 Nebulized] Ascorbic Acid [Vitamin C] 1,000 mg PO DAILY 11/17/22 11/17/22 Aspirin EC [Ecotrin Low Dose] 81 mg PO DAILY 11/17/22 11/17/22 Atorvastatin [Lipitor] 10 mg PO HS 11/17/22 11/17/22 Budesonide [Pulmicort] 1 mg INHALATION RT-DAILY 11/17/22 11/17/22 Citalopram Hydrobromide [CeleXA] 20 mg PO DAILY 11/17/22 11/17/22 DAPTOmycin [Cubicin] 500 mg IV DAILY 11/17/22 11/17/22 Diclofenac Sodium [Voltaren 1 gm TOPICAL QID@08,12,16,20 11/17/22 11/17/22 Arthritis Pain 1% Gel] Ergocalciferol (Vitamin D2) 1,250 mcg PO TU 11/17/22 11/17/22 [Drisdol (50,000 Iu)] Ferrous Sulfate [Iron (65 MG 325 mg PO DAILY 11/17/22 11/17/22 Elemental)] Healthshake 1 dose PO BID-W/MEALS 11/17/22 11/17/22 Heparin Sodium,Porcine (1 ml) 5,000 unit SQ TID@0500,1300,2100 11/17/22 11/17/22 [Heparin Sodium] Ipratropium-Albuterol Nebulize 3 ml INHALATION RT-QID@05,,,11/17/22 11/17/22 [Duoneb 0.5 mg-3 mg/3 ml Soln] Quercetin 500 mg PO DAILY 11/17/22 11/17/22 Sennosides [Senokot] 8.6 mg PO BID 11/17/22 11/17/22 Zinc Gluconate [Zinc] 25 mg PO DAILY 11/17/22 11/17/22 guaiFENesin [guaiFENesin Oral 400 mg PO Q4H PRN 11/17/22 11/17/22 Solution] lisinopriL [Prinivil] 10 mg PO DAILY 11/17/22 11/17/22 oxyCODONE HCL [OxyIR] 5 mg PO Q4H PRN 11/17/22 11/17/22 Previous Rx's Medication Instructions Recorded Amoxic-Pot Clav 875-125Mg 1 each PO Q12HR #2 tab 11/23/22 [Augmentin 875-125] Furosemide [Lasix] 20 mg PO DAILY #30 tab 11/23/22 predniSONE [Deltasone] See Rx Instructions .ROUTE 11/23/22 .COMPLEX #8 tab Allergies Allergy/AdvReac Type Severity Reaction Status Date / Time codeine AdvReac Nausea & Verified 11/17/22 15:24 Vomiting Review of Systems ROS Statement: Those systems with pertinent positive or pertinent negative responses have been documented in the HPI. ROS Other: All systems not noted in ROS Statement are negative. Past Medical History Past Medical History: Coronary Artery Disease (CAD), Cancer, Chest Pain / Angina, COPD, CVA/TIA, GERD/Reflux, Hyperlipidemia, Hypertension, Osteoarthritis (OA), Rheumatoid Arthritis (RA), Skin Disorder, Vascular Disorder Additional Past Medical History / Comment(s): chronic back pain., scoliosis., heart murmur, SOB w/activity, hx of gastric ulcer, cervical cancer, eczema, TIA-no residuals., frequent diarrhea., hepatitis C with tx,hamlet cataracts, left knee replaced recently-not healing well per pt, lot of pain, recent cataract surg. History of Any Multi-Drug Resistant Organisms: MRSA Date of last positivie culture/infection: 10/09/22 MDRO Source:: lt foot/knee Past Surgical History: Section, Cholecystectomy, Coronary Bypass/CABG, Heart Catheterization, Heart Catheterization With Stent, Joint Replacement, Orthopedic Surgery, Tubal Ligation Additional Past Surgical History / Comment(s): triple CABG 2008, ORIF right leg, ., heart cath with stent 2013([facility])., heart cath no stent (2019). left knee replaced 03-15-22, tip fib screws Past Anesthesia/Blood Transfusion Reactions: No Reported Reaction Date of Last Stent Placement:: 2013 Past Psychological History: Anxiety, Depression Smoking Status: Former smoker Past Alcohol Use History: None Reported Past Drug Use History: None Reported - Past Family History Father Family Medical History: Cancer, Dementia Additional Family Medical History / Comment(s): AT AGE 84-LUNG CANCER. Mother Family Medical History: Coronary Artery Disease (CAD) Additional Family Medical History / Comment(s): AT AGE 73. Brother(s) Family Medical History: Cancer Course Vital Signs 12/10/22 14:16 Pulse Rate 94 Respiratory 19 Rate Blood Pressure 136/70 O2 Sat by Pulse 94 L Oximetry Procedures - Procedures Initial comment: Patient 67-year-old female presenting for epistaxis. She did try to blow her nose to clear clots. Was unable to clear many clots. Afrin spray was placed in both left and right side. A lidocaine, epinephrine, tetracaine mixture placed on cotton ball and placed in both left and right nostril left in for approximately 20 minutes. This was removed. Patient still is having bleeding. Merocel packing was placed on both the right and left side. Patient tolerated the packing well. Has been reexamined and has had no further bleeding. Posterior pharynx clear. He is comfortable being discharged home at this time. Medical Decision Making - Medical Decision Making History was obtained from patient/Nurse Initial assessment and chief complaint: Epistaxis Chronic conditions affecting care: Hypertension, hyperlipidemia, CAD, COPD, Social determinants affecting care: None Patient is a 67-year-old female presented to the emergency room today with a chief complaint of epistaxis. She does admit that bleeding started approximately 2 hours prior to arrival. Patient states that no injury or trauma. Patient states not on any blood thinners. Patient was instructed to try to blow her nose. She was unable to clear clots. She was given Afrin spray one spray on both sides. Patient had lidocaine, epinephrine, tetracaine placed on a cotton ball and into the right and left nostrils. This was removed and patient still had bleeding. A Merocel packing was placed and right nostril left nostril. Patient has been observed here in the emergency room is had no rebleeding. She feels comfortable being discharged at this time. Given inf ormation for ENT follow-up. Advised return for any other concerns. States understanding and is agreement. Disposition Clinical Impression: Epistaxis Disposition: HOME SELF-CARE Condition: Good Instructions (If sedation given, give patient instructions): Nosebleed (ED) Additional Instructions: Please follow with ENT over the next 2 days. Return to the emergency room for any other concerns. Is patient prescribed a controlled substance at d/c from ED?: No Referrals: Olivier Trinidad DO [Primary Care Provider] - 1-2 days Eriberto Aguila DO [Doctor of Osteopathic Medicine] - 1-2 days Time of Disposition: 16:19
[2022-12-10 17:39] VITALS: BP 166/69; RESP 18; TEMP 98.2
== END 2022-12-10 17:38 | disposition home or self-care (01) ==
LOC: EC 14:13
DX: R04.0 Epistaxis (principal); I25.10 Atherosclerotic heart disease of native coronary artery without angina pectoris; J44.9 Chronic obstructive pulmonary disease, unspecified; Z86.73 Personal history of transient ischemic attack (TIA), and cerebral infarction without residual deficits; E78.5 Hyperlipidemia, unspecified; K21.9 Gastro-esophageal reflux disease without esophagitis; I10 Essential (primary) hypertension; M19.90 Unspecified osteoarthritis, unspecified site; F41.9 Anxiety disorder, unspecified; F32.A Depression, unspecified; Z87.891 Personal history of nicotine dependence; Z79.82 Long term (current) use of aspirin; Z79.1 Long term (current) use of non-steroidal anti-inflammatories (NSAID); Z79.51 Long term (current) use of inhaled steroids; Z79.899 Other long term (current) drug therapy; Z88.5 Allergy status to narcotic agent; Z90.49 Acquired absence of other specified parts of digestive tract; Z95.1 Presence of aortocoronary bypass graft
CPT/HCPCS: 30901; 99284

== ENCOUNTER 2022-12-11 13:57 | Emergency (ER) | payer MEDICARE, OTHER ==
[2022-12-11 14:08] VITALS: TEMP 98.9
[2022-12-11] MEDS ORDERED: HYDROmorphone 1 MG/ML 1 ML SYRINGE IVP STA (14:32)
[2022-12-11] MEDS ORDERED: SODIUM CHLORIDE 0.9% 1,000 ML IV STA (14:32)
[2022-12-11] MEDS ORDERED: KETOROLAC 15 MG/ML 1 ML VIAL IVP STA (14:32)
--- NOTE | 2022-12-11 14:51 | ED ---
Extremity Problem HPI - General Chief complaint: Recheck/Abnormal Lab/Rx Stated complaint: left knee injury/ nose bleed Time Seen by Provider: 12/11/22 14:25 Source: patient, RN notes reviewed Mode of arrival: ambulatory Limitations: no limitations - History of Present Illness Initial comments: This is a 67-year-old female who presents to the emergency department for concerns of an infection to the left knee. She's had multiple surgeries to the left knee this year for surgical site infection. She had a knee replacement but had the hardware removed due to infection. She has had several rounds of washout in the OR by orthopedic surgeons here. However, because this became a recurrent issue, he was referred to [facility] for further management. They put in antibiotic spacers with plan to redo the knee replacement when everything healed. After this, she was receiving IV antibiotics through a PICC line for several weeks, and she just finished this about a week ago. However, she has a scab over one of the wounds on the knee that accidentally came off after she bumped it on her wheelchair yesterday. She has subsequently started to notice purulent drainage coming from this wound with increasing redness, swelling, and warmth. Additionally, the patient was evaluated here for a nosebleed yesterday and required nasal packing. States that this is giving her headache and she feels very congested, and she would like to have these removed. MD Complaint: extremity pain, extremity swelling - Related Data Home Medications Medication Instructions Recorded Confirmed Isosorbide Mononitrate [Imdur] 30 mg PO DAILY 11/22/13 11/17/22 Metoprolol Tartrate [Lopressor] 50 mg PO BID 01/19/17 11/17/22 Omeprazole 20 mg PO DAILY 01/19/17 11/17/22 traZODone HCL 50 mg PO HS 02/26/19 11/17/22 Acetaminophen [Tylenol Arthritis] 650 mg PO Q4H PRN 05/19/22 11/17/22 Hydroxychloroquine Sulfate 200 mg PO BID 10/09/22 11/17/22 [Plaquenil] Albuterol Nebulized [Ventolin 2.5 mg INHALATION RT-Q4H PRN 11/17/22 11/17/22 Nebulized] Ascorbic Acid [Vitamin C] 1,000 mg PO DAILY 11/17/22 11/17/22 Aspirin EC [Ecotrin Low Dose] 81 mg PO DAILY 11/17/22 11/17/22 Atorvastatin [Lipitor] 10 mg PO HS 11/17/22 11/17/22 Budesonide [Pulmicort] 1 mg INHALATION RT-DAILY 11/17/22 11/17/22 Citalopram Hydrobromide [CeleXA] 20 mg PO DAILY 11/17/22 11/17/22 DAPTOmycin [Cubicin] 500 mg IV DAILY 11/17/22 11/17/22 Diclofenac Sodium [Voltaren 1 gm TOPICAL QID@08,12,16,11/17/22 11/17/22 Arthritis Pain 1% Gel] Ergocalciferol (Vitamin D2) 1,250 mcg PO TU 11/17/22 11/17/22 [Drisdol (50,000 Iu)] Ferrous Sulfate [Iron (65 MG 325 mg PO DAILY 11/17/22 11/17/22 Elemental)] Healthshake 1 dose PO BID-W/MEALS 11/17/22 11/17/22 Heparin Sodium,Porcine (1 ml) 5,000 unit SQ TID@0500,1300,2100 11/17/22 11/17/22 [Heparin Sodium] Ipratropium-Albuterol Nebulize 3 ml INHALATION RT-QID@05,,,11/17/22 11/17/22 [Duoneb 0.5 mg-3 mg/3 ml Soln] Quercetin 500 mg PO DAILY 11/17/22 11/17/22 Sennosides [Senokot] 8.6 mg PO BID 11/17/22 11/17/22 Zinc Gluconate [Zinc] 25 mg PO DAILY 11/17/22 11/17/22 guaiFENesin [guaiFENesin Oral 400 mg PO Q4H PRN 11/17/22 11/17/22 Solution] lisinopriL [Prinivil] 10 mg PO DAILY 11/17/22 11/17/22 oxyCODONE HCL [OxyIR] 5 mg PO Q4H PRN 11/17/22 11/17/22 Previous Rx's Medication Instructions Recorded Amoxic-Pot Clav 875-125Mg 1 each PO Q12HR #2 tab 11/23/22 [Augmentin 875-125] Furosemide [Lasix] 20 mg PO DAILY #30 tab 11/23/22 predniSONE [Deltasone] See Rx Instructions .ROUTE 11/23/22 .COMPLEX #8 tab Amoxic-Pot Clav 875-125Mg 1 tab PO BID 7 Days #14 tab 12/10/22 [Augmentin 875-125] Allergies Allergy/AdvReac Type Severity Reaction Status Date / Time codeine AdvReac Nausea & Verified 12/11/22 14:03 Vomiting Review of Systems ROS Statement: Those systems with pertinent positive or pertinent negative responses have been documented in the HPI. ROS Other: All systems not noted in ROS Statement are negative. Past Medical History Past Medical History: Coronary Artery Disease (CAD), Cancer, Chest Pain / An juan, COPD, CVA/TIA, GERD/Reflux, Hyperlipidemia, Hypertension, Osteoarthritis (OA), Rheumatoid Arthritis (RA), Skin Disorder, Vascular Disorder Additional Past Medical History / Comment(s): chronic back pain., scoliosis., heart murmur, SOB w/activity, hx of gastric ulcer, cervical cancer, eczema, TIA-no residuals., frequent diarrhea., hepatitis C with tx,hamlet cataracts, left knee replaced recently-not healing well per pt, lot of pain, recent cataract surg. History of Any Multi-Drug Resistant Organisms: MRSA Date of last positivie culture/infection: 10/09/22 MDRO Source:: lt foot/knee Past Surgical History: Section, Cholecystectomy, Coronary Bypass/CABG, Heart Catheterization, Heart Catheterization With Stent, Joint Replacement, Orthopedic Surgery, Tubal Ligation Additional Past Surgical History / Comment(s): triple CABG 2008, ORIF right leg, ., heart cath with stent 2013([facility])., heart cath no stent (2019). left knee replaced 03-15-22, tip fib screws Past Anesthesia/Blood Transfusion Reactions: No Reported Reaction Date of Last Stent Placement:: 2013 Past Psychological History: Anxiety, Depression Smoking Status: Former smoker Past Alcohol Use History: None Reported Past Drug Use History: None Reported - Past Family History Father Family Medical History: Cancer, Dementia Additional Family Medical History / Comment(s): AT AGE 84-LUNG CANCER. Mother Family Medical History: Coronary Artery Disease (CAD) Additional Family Medical History / Comment(s): AT AGE 73. Brother(s) Family Medical History: Cancer General Exam Limitations: no limitations General appearance: alert, in no apparent distress Head exam: Present: atraumatic, normocephalic, normal inspection Respiratory exam: Present: normal lung sounds bilaterally. Absent: respiratory distress, wheezes, rales, rhonchi, stridor Cardiovascular Exam: Present: regular rate, normal rhythm, normal heart sounds. Absent: systolic murmur, diastolic murmur, rubs, gallop, clicks Extremities exam: Present: other (Erythema, tenderness, and swelling over the left patella with a 2 cm circular open wound with active purulent drainage. Limited range of motion. 2+ DP and PT pulses and capillary refill <1 second.) Neurological exam: Present: alert, oriented X3, CN II-XII intact Psychiatric exam: Present: normal affect, normal mood Course Vital Signs 12/11/22 12/11/22 12/11/22 14:01 16:00 18:00 Temperature 98.9 F Pulse Rate 105 H 92 63 Respiratory 24 20 20 Rate Blood Pressure 189/78 164/74 154/70 O2 Sat by Pulse 95 98 96 Oximetry Medical Decision Making - Medical Decision Making This is a 67-year-old female who presents to the emergency department for left knee pain and swelling. Was pt. sent in by a medical professional or institution? @ -No Did you speak to anyone other than the patient for history? @ -No Did you review nursing and triage notes? @ -Yes, and I agree, it is accurate with regards to the patient's symptoms. Were old charts reviewed? @ -No Differential Diagnosis? @ -Differential knee pain: Fracture, dislocation, contusion, infection, this is not meant to be an all- inclusive list. EKG interpreted by me (3pts min.)? @ -Not obtained X-rays interpreted by me (1pt min.)? @ -X-ray of the left knee obtained. My interpretation identifies no evidence of cortical destruction. CT interpreted by me (1pt min.)? @ -Not obtained U/S interpreted by me (1pt. min.)? @ -Not obtained What testing was considered but not performed? (CT, X-rays, U/S, labs)? Why? @ -None What meds were considered but not given? Why? @ -None Did you discuss the management of the patient with other professionals? @ -Yes, Bam Craig with [facility], who advised transfer back to [facility] where she had the most recent surgery. Dr. Benavides, ED attending at [facility], accepts the patient for transfer. Did you reconcile home meds? @ -No Was smoking cessation discussed for >3mins.? @ -No Was critical care preformed (if so, how long)? @ -No Were there social determinants of health that impacted care today? How? (Homelessness, low income, unemployed, alcoholism, drug addiction, transportat ion, low edu. Level, literacy, decrease access to med. care, senior living, rehab)? @ -No Was there de-escalation of care discussed even if they declined? (Discuss DNR or withdrawal of care, Hospice)? @ -No What co-morbidities impacted this encounter? (DM, HTN, Smoking, COPD, CAD, Cancer, CVA, Hep., AIDS, mental health diagnosis, sleep apnea, morbid obesity)? @ -CAD, osteoarthritis, rheumatoid arthritis Was patient admitted / discharged? @ -Lab work obtained revealing an elevated CRP of 22.8 and ESR of 87. There is no leukocytosis. On physical examination the knee joint was erythematous, tender, and warm. There is also an open wound with active purulent drainage. Range of motion was also severely limited. X-ray of the left knee obtained revealing postsurgical changes without definitive acute process. I did speak with our orthopedic team here, however they advised that she would need to be transferred back to [facility] where she had her most recent procedure for a higher level of care. Blood and wound cultures were obtained and she was given a dose of ceftriaxone and vancomycin in the emergency department prior to transfer. This will be an ED to ED transfer and Dr. Benavides is the accepting ED physician at [facility]. Of note, I did remove the patient's merocel nasal packing as requested, as this had been in place for over 24 hours. She tolerated this well and had no bleeding afterwards. Undiagnosed new problem with uncertain prognosis? @ -None Drug Therapy requiring intensive monitoring for toxicity (Heparin, Nitro, Insulin, Cardizem)? @ -None Were any procedures done? @ -None Diagnosis/symptom? @ -Left knee infection Acute, or Chronic, or Acute on Chronic? @ -Acute Uncomplicated (without systemic symptoms) or Complicated (systemic symptoms)? @ -Complicated Side effects of treatment? @ -None Exacerbation, Progression, or Severe Exacerbation] @ -Not applicable Poses a threat to life or bodily function? @ -Yes This case was discussed in detail with the attending ED physician, Dr. Avalos. Presentation, findings, and treatment plan discussed in detail as well. - Lab Data Result diagrams: 12/11/22 15:55 12/11/22 15:55 Lab Results 12/11/22 12/11/22 12/11/22 Range/Units 15:55 15:55 15:55 WBC 5.2 (3.8-10.6) k/uL RBC 3.18 L (3.80-5.40) m/uL Hgb 8.7 L (11.4-16.0) gm/dL Hct 28.0 L (34.0-46.0) % MCV 88.0 (80.0-100.0) fL MCH 27.4 (25.0-35.0) pg MCHC 31.1 (31.0-37.0) g/dL RDW 17.8 H (11.5-15.5) % Plt Count 343 (150-450) k/uL MPV 7.2 Neutrophils % 74 % Lymphocytes % 14 % Monocytes % 6 % Eosinophils % 4 % Basophils % 0 % Neutrophils # 3.9 (1.3-7.7) k/uL Lymphocytes # 0.7 L (1.0-4.8) k/uL Monocytes # 0.3 (0-1.0) k/uL Eosinophils # 0.2 (0-0.7) k/uL Basophils # 0.0 (0-0.2) k/uL Hypochromasia Marked Anisocytosis Slight ESR 87 H (0-30) mm/Hr Sodium 136 L (137-145) mmol/L Potassium 4.1 (3.5-5.1) mmol/L Chloride 107 (98-107) mmol/L Carbon Dioxide 18 L (22-30) mmol/L Anion Gap 11 mmol/L BUN 18 H (7-17) mg/dL Creatinine 0.58 (0.52-1.04) mg/dL Est GFR (CKD-EPI)AfAm >90 (>60 ml/min/1.73 sqM) Est GFR (CKD-EPI)NonAf >90 (>60 ml/min/1.73 sqM) Glucose 92 (74-99) mg/dL Plasma Lactic Acid Anand 1.0 (0.7-2.0) mmol/L Calcium 8.5 (8.4-10.2) mg/dL Total Bilirubin 0.3 (0.2-1.3) mg/dL AST 17 (14-36) U/L ALT 17 (4-34) U/L Alkaline Phosphatase 165 H (38-126) U/L C-Reactive Protein 22.8 H (<1.0) mg/dL Total Protein 6.2 L (6.3-8.2) g/dL Albumin 2.9 L (3.5-5.0) g/dL - Radiology Data Radiology results: report reviewed, image reviewed Disposition Clinical Impression: Infection of left knee Disposition: OTHER INSTITUTION NOT DEFINED Referrals: Olivier Trinidad DO [Primary Care Provider] - 1-2 days - Out of Hospital Transfer - Req. Specs Out of Hospital Transfer - Requested Specifics: Other Emergency Center ([facility])
[2022-12-11] MEDS ORDERED: LIDOCAINE/EPINEPHR/TETRACAINE 5 ML BOTTLE TOPICAL ONE (15:23)
[2022-12-11 16:15] VITALS: RESP 20
[2022-12-11 16:25] LABS: Anisocytosis Slight; Basophils % (A) 0 %; Eosinophils # (A) 0.2 k/uL (0-0.7); Eosinophils % (A) 4 %; HGB 8.7 gm/dL (11.4-16.0); Hypochromasia Marked; Lymphocytes # (A) 0.7 k/uL (1.0-4.8); Lymphocytes % (A) 14 %; MCH 27.4 pg (25.0-35.0); MCHC 31.1 g/dL (31.0-37.0); Mean Platelet Volume 7.2; Monocytes # (A) 0.3 k/uL (0-1.0); Monocytes % (A) 6 %; Neutrophils # (A) 3.9 k/uL (1.3-7.7); Neutrophils % (A) 74 %; Platelet Count 343 k/uL (150-450); RBC 3.18 m/uL (3.80-5.40); RDW 17.8 % (11.5-15.5); WBC 5.2 k/uL (3.8-10.6)
[2022-12-11 16:36] LABS: ALT 17 U/L (4-34); AST 17 U/L (14-36); African American GFR (CKD) >90 (>60 ml/min/1.73 sqM); Albumin 2.9 g/dL (3.5-5.0); Alkaline Phosphatase 165 U/L (38-126); Anion Gap 11 mmol/L; Blood Urea Nitrogen 18 mg/dL (7-17); Calcium 8.5 mg/dL (8.4-10.2); Carbon Dioxide 18 mmol/L (22-30); Chloride 107 mmol/L (98-107); Glucose 92 mg/dL (74-99); Non-African American GFR(CKD) >90 (>60 ml/min/1.73 sqM); Potassium 4.1 mmol/L (3.5-5.1); Sodium 136 mmol/L (137-145); Total Bilirubin 0.3 mg/dL (0.2-1.3); Total Protein 6.2 g/dL (6.3-8.2)
--- NOTE | 2022-12-11 16:50 | XR ---
Left knee HISTORY: Knee pain and swelling. COMPARISON: 10/09/2022. TECHNIQUE: 3 views left knee were obtained . There is been a total left knee placement. There is diffuse increased density in the femoral condyles and tibial plateau adjacent to the prostheses likely secondary to methyl methacrylate glue. There is no acute fracture or dislocation. There is no cortical disruption or periosteal reaction. There are scattered vascular calcifications. IMPRESSION: Postsurgical changes as described above. No definite cortical destruction or periosteal reaction. No fracture or dislocation.
[2022-12-11 17:03] LABS: C Reactive Protein 22.8 mg/dL (<1.0)
[2022-12-11] MEDS ORDERED: VANCOMYCIN IV PER PHARMACY 1 EACH MISC MISCELLANE PRN (17:32)
[2022-12-11] MEDS ORDERED: cefTRIAXone IN SWFI 1,000 MG/10 ML SYRINGE IVP STA (17:32)
[2022-12-11] MEDS ORDERED: VANCOMYCIN 1,000 MG in SODIUM CHLORIDE 0.9% 250 ML IVPB STA (17:39)
[2022-12-11 18:11] VITALS: BP 154/70; PULSE 63
[2022-12-11 22:53] LABS: Erythrocyte Sedimentation Rate 87 mm/Hr (0-30)
[2022-12-12] MEDS ORDERED: VANCOMYCIN 750 MG in SODIUM CHLORIDE 0.9% 250 ML IVPB SCH (06:00)
== END 2022-12-11 18:50 | disposition other institution (70) ==
LOC: EC 13:57
DX: S81.002A Unspecified open wound, left knee, initial encounter (principal); L08.9 Local infection of the skin and subcutaneous tissue, unspecified; B95.62 Methicillin resistant Staphylococcus aureus infection as the cause of diseases classified elsewhere; I10 Essential (primary) hypertension; I25.10 Atherosclerotic heart disease of native coronary artery without angina pectoris; J44.9 Chronic obstructive pulmonary disease, unspecified; K21.9 Gastro-esophageal reflux disease without esophagitis; E78.5 Hyperlipidemia, unspecified; F32.A Depression, unspecified; F41.9 Anxiety disorder, unspecified; M06.9 Rheumatoid arthritis, unspecified; Z79.82 Long term (current) use of aspirin; Z79.51 Long term (current) use of inhaled steroids; Z79.899 Other long term (current) drug therapy; Z88.5 Allergy status to narcotic agent; Z95.1 Presence of aortocoronary bypass graft; Z90.49 Acquired absence of other specified parts of digestive tract; Z87.891 Personal history of nicotine dependence; Z86.73 Personal history of transient ischemic attack (TIA), and cerebral infarction without residual deficits; W22.8XXA Striking against or struck by other objects, initial encounter
CPT/HCPCS: 99285; 96365; 96375 ×3; 96361; 36415; 80053; 85652; 83605; 85025; 86140; 87040; 87070; 87205; 87077; 87186; 73562; J3370; J0696; J1170; J1885

== ENCOUNTER 2022-12-25 07:23 | Inpatient (IN) | payer MEDICARE, OTHER ==
[2022-12-25] MEDS ORDERED: NITROGLYCERIN SL TABS 0.4 MG TAB SUBLINGUAL STA ×2 (07:39)
[2022-12-25] MEDS ORDERED: ASPIRIN 81 MG PO STA (07:39)
[2022-12-25] MEDS ORDERED: ACETAMINOPHEN TAB 500 MG TAB PO STA (07:39)
--- NOTE | 2022-12-25 07:59 | ED ---
General Adult HPI - General Chief complaint: Chest Pain Stated complaint: Chest Pain Time Seen by Provider: 12/25/22 07:40 Source: patient, EMS, RN notes reviewed, old records reviewed Mode of arrival: EMS Limitations: no limitations - History of Present Illness Initial comments: This is a 67-year-old female who presents emergency department with past medical history significant for high blood pressure high cholesterol long history of smoking which she no longer does. And a previous bypass surgery and stent placements. Patient comes in today stating she woke up with significant chest pain at 6:00 this morning and appeared short of breath per patient states there is some radiation of the pain into the neck. Patient denies any recent fever chills or cough per patient denies abdominal pain patient denies nausea vomiting diarrhea. Patient denies headache patient denies numbness weakness. - Related Data Home Medications Medication Instructions Recorded Confirmed Isosorbide Mononitrate [Imdur] 30 mg PO DAILY 11/22/13 11/17/22 Metoprolol Tartrate [Lopressor] 50 mg PO BID 01/19/17 11/17/22 Omeprazole 20 mg PO DAILY 01/19/17 11/17/22 traZODone HCL 50 mg PO HS 02/26/19 11/17/22 Acetaminophen [Tylenol Arthritis] 650 mg PO Q4H PRN 05/19/22 11/17/22 Hydroxychloroquine Sulfate 200 mg PO BID 10/09/22 11/17/22 [Plaquenil] Albuterol Nebulized [Ventolin 2.5 mg INHALATION RT-Q4H PRN 11/17/22 11/17/22 Nebulized] Ascorbic Acid [Vitamin C] 1,000 mg PO DAILY 11/17/22 11/17/22 Aspirin EC [Ecotrin Low Dose] 81 mg PO DAILY 11/17/22 11/17/22 Atorvastatin [Lipitor] 10 mg PO HS 11/17/22 11/17/22 Budesonide [Pulmicort] 1 mg INHALATION RT-DAILY 11/17/22 11/17/22 Citalopram Hydrobromide [CeleXA] 20 mg PO DAILY 11/17/22 11/17/22 DAPTOmycin [Cubicin] 500 mg IV DAILY 11/17/22 11/17/22 Diclofenac Sodium [Voltaren 1 gm TOPICAL QID@08,12,16,20 11/17/22 11/17/22 Arthritis Pain 1% Gel] Ergocalciferol (Vitamin D2) 1,250 mcg PO TU 11/17/22 11/17/22 [Drisdol (50,000 Iu)] Ferrous Sulfate [Iron (65 MG 325 mg PO DAILY 11/17/22 11/17/22 Elemental)] Healthshake 1 dose PO BID-W/MEALS 11/17/22 11/17/22 Heparin Sodium,Porcine (1 ml) 5,000 unit SQ TID@0500,1300,2100 11/17/22 11/17/22 [Heparin Sodium] Ipratropium-Albuterol Nebulize 3 ml INHALATION RT-QID@05,11,17,11/17/22 11/17/22 [Duoneb 0.5 mg-3 mg/3 ml Soln] Quercetin 500 mg PO DAILY 11/17/22 11/17/22 Sennosides [Senokot] 8.6 mg PO BID 11/17/22 11/17/22 Zinc Gluconate [Zinc] 25 mg PO DAILY 11/17/22 11/17/22 guaiFENesin [guaiFENesin Oral 400 mg PO Q4H PRN 11/17/22 11/17/22 Solution] lisinopriL [Prinivil] 10 mg PO DAILY 11/17/22 11/17/22 oxyCODONE HCL [OxyIR] 5 mg PO Q4H PRN 11/17/22 11/17/22 Previous Rx's Medication Instructions Recorded Amoxic-Pot Clav 875-125Mg 1 each PO Q12HR #2 tab 11/23/22 [Augmentin 875-125] Furosemide [Lasix] 20 mg PO DAILY #30 tab 11/23/22 predniSONE [Deltasone] See Rx Instructions .ROUTE 11/23/22 .COMPLEX #8 tab Amoxic-Pot Clav 875-125Mg 1 tab PO BID 7 Days #14 tab 12/10/22 [Augmentin 875-125] Allergies Allergy/AdvReac Type Severity Reaction Status Date / Time codeine AdvReac Nausea & Verified 12/25/22 07:42 Vomiting Review of Systems ROS Statement: Those systems with pertinent positive or pertinent negative responses have been documented in the HPI. ROS Other: All systems not noted in ROS Statement are negative. Past Medical History Past Medical History: Coronary Artery Disease (CAD), Cancer, Chest Pain / Angina, COPD, CVA/TIA, GERD/Reflux, Hyperlipidemia, Hypertension, Osteoarthritis (OA), Rheumatoid Arthritis (RA), Skin Disorder, Vascular Disorder Additional Past Medical History / Comment(s): chronic back pain., scoliosis., heart murmur, SOB w/activity, hx of gastric ulcer, cervical cancer, eczema, TIA-no residuals., frequent diarrhea., hepatitis C with tx,hamlet cataracts, left knee replaced recently-not healing well per pt, lot of pain, recent cataract surg. History of Any Multi-Drug Resistant Organisms: MRSA Date of last positivie culture/infection: 12/11/22 MDRO Source:: Left Knee/Blood Past Surgical History: Section, Cholecystectomy, Coronary Bypass/CABG, Heart Catheterization, Heart Catheterization With Stent, Joint Replacement, Orthopedic Surgery, Tubal Ligation Additional Past Surgical History / Comment(s): triple CABG 2008, ORIF right leg, ., heart cath with stent 2013(Mph)., heart cath no stent (2019). left knee replaced 03-15-22, tip fib screws Past Anesthesia/Blood Transfusion Reactions: No Reported Reaction Date of Last Stent Placement:: 2013 Past Psychological History: Anxiety, Depression Smoking Status: Former smoker Past Alcohol Use History: None Reported Past Drug Use History: None Reported - Past Family History Father Family Medical History: Cancer, Dementia Additional Family Medical History / Comment(s): AT AGE 84-LUNG CANCER. Mother Family Medical History: Coronary Artery Disease (CAD) Additional Family Medical History / Comment(s): AT AGE 73. Brother(s) Family Medical History: Cancer General Exam - General Exam Comments Initial Comments: GENERAL: Patient is well-developed and well-nourished. Patient is nontoxic and well- hydrated and is in mild distress. ENT: Neck is soft and supple. No significant lymphadenopathy is noted. Oropharynx is clear. Moist mucous membranes. Neck has full range of motion without eliciting any pain. EYES: The sclera were anicteric and conjunctiva were pink and moist. Extraocular movements were intact and pupils were equal round and reactive to light. Eyelids were unremarkable. PULMONARY: Unlabored respirations. Good breath sounds bilaterally. No audible rales rhonchi or wheezing was noted. CARDIOVASCULAR: There is a regular rate and rhythm without any murmurs gallops or rubs. ABDOMEN: Soft and nontender with normal bowel sounds. SKIN: Skin is clear with no lesions or rashes and otherwise unremarkable. NEUROLOGIC: Patient is alert and oriented x3. Cranial nerves II through XII are grossly intact. Motor and sensory are also intact. Normal speech, volume and content. Symmetrical smile. MUSCULOSKELETAL: Normal extremities with adequate strength and full range of motion. No lower extremity swelling or edema. No calf tenderness. LYMPHATICS: No significant lymphadenopathy is noted PSYCHIATRIC: Normal psychiatric evaluation. Limitations: no limitations Course Vital Signs 12/25/22 12/25/22 07:40 08:38 Temperature 98.9 F Pulse Rate 110 H 80 Respiratory 18 18 Rate Blood Pressure 168/77 131/60 O2 Sat by Pulse 91 L 96 Oximetry Medical Decision Making - Medical Decision Making EKG was interpreted by myself EKG shows a sinus tachycardia at 111 bpm AL interval 244 QRS is 80 QT interval 348 QTC is 414. Patient's EKG shows ST segment depression in leads V3 V4 V5 which is different from an old EKG. At this point in time I spoke with Dr. Bailon at 743 and indicated to him that the patient may be having a posterior IN. An EKG with posterior bleed was done EKG showed sinus tachycardia with occasional PAC at 106 bpm AL interval 103 QRS is 90 QT interval 370 QTC is 439. Patient's EKG did not show any ST segment elevation in those posterior leads. Patient had received nitroglycerin and at that time some relief in pain. A third EKG was done it was interpreted by myself. EKG shows a sinus tachycardia at 100 bpm AL interval is 151 QRS is 82 QT interval 350 QTC is 424. Patient's EKG shows no ST segment Was pt. sent in by a medical professional or institution (, PA, LABORATORY ANIMAL CARE VETERINARIAN, urgent care, hospital, or shelter...) When possible be specific @ -No Did you speak to anyone other than the patient for history (EMS, parent, family, police, friend...)? What history was obtained from this source @ -No Did you review nursing and triage notes (agree or disagree)? Why? @ -I reviewed and agree with nursing and triage notes Were old charts reviewed (outside hosp., previous admission, EMS record, old EKG, old radiological studies, urgent care reports/EKG's, shelter records)? Report findings @ -I reviewed prior charts in prior laboratory numbness patient Differential Diagnosis (chest pain, altered mental status, abdominal pain women, abdominal pain men, vaginal bleeding, weakness, fever, dyspnea, syncope, headache, dizziness, GI bleed, back pain, seizure, CVA, palpatations, mental health, musculoskeletal)? @ -Differential Chest Pain: Stable Angina, Unstable Angina, STEMI, NSTEMI Aortic Dissection, Pneumothorax, Musculoskeletal, Esophageal Spasm GERD, Cholecystitis, Pancreatitis, Zoster, this is not meant to be an all-inclusive list. EKG interpreted by me (3pts min.). @ -As above X-rays interpreted by me (1pt min.). @ -Chest x-ray showed no acute abnormality CT interpreted by me (1pt min.). @ -None done U/S interpreted by me (1pt. min.). @ -None done What testing was considered but not performed or refused? (CT, X-rays, U/S, labs)? Why? @ -None What meds were considered but not given or refused? Why? @ -None Did you discuss the management of the patient with other professionals (professionals i.e. , PA, LABORATORY ANIMAL CARE VETERINARIAN, lab, RT, psych nurse, manager social media, hot shot, teacher, combat systems officer, shelter case manager)? Give summary @ -I spoke with Dr. Bailon on 2 different occasions about this patient. I spoke with sounds physician's Agreed to admit the patient Was smoking cessation discussed for >3mins.? @ -No Was critical care preformed (if so, how long)? @ -35 minutes Were there social determinants of health that impacted care today? How? (Homelessness, low income, unemployed, alcoholism, drug addiction, transportation, low edu. Level, literacy, decrease access to med. care, retirement, rehab)? @ -No Was there de-escalation of care discussed even if they declined (Discuss DNR or withdrawal of care, Hospice)? DNR status @ -No What co-morbidities impacted this encounter? (DM, HTN, Smoking, COPD, CAD, Cancer, CVA, ARF, Chemo, Hep., AIDS, mental health diagnosis, sleep apnea, morbid obesity)? @ -None Was patient admitted / discharged? Hospital course, mention meds given and route, prescriptions, significant lab abnormalities, going to OR and other pertinent info. @ -Patient received aspirin and nitro glycerin in the emergency department she was feeling better EKG normalized on the repeat. I spoke with Dr. Bailon and carla physician's. Patient was also started on heparin emergency department which will be continued on the floor Undiagnosed new problem with uncertain prognosis? @ -No Drug Therapy requiring intensive monitoring for toxicity (Heparin, Nitro, Insulin, Cardizem)? @ -No Were any procedures done? @ -No Diagnosis/symptom? @ -Unstable angina Acute, or Chronic, or Acute on Chronic? @ -Acute Uncomplicated (without systemic symptoms) or Complicated (systemic symptoms)? @ -Complicated Side effects of treatment? @ -No Exacerbation, Progression, or Severe Exacerbation? @ -No Poses a threat to life or bodily function? How? (Chest pain, USA, IN, pneumonia, PE, COPD, DKA, ARF, appy, cholecystitis, CVA, Diverticulitis, Homicidal, Suicidal, threat to staff... and all critical care pts) @ -Yes this could lead to an IN and poor perfusion with end organ dysfunction - Lab Data Result diagrams: 12/25/22 07:50 12/25/22 07:50 Lab Results 12/25/22 12/25/22 12/25/22 Range/Units 07:50 07:50 07:50 WBC 6.6 (3.8-10.6) k/uL RBC 3.50 L (3.80-5.40) m/uL Hgb 9.8 L (11.4-16.0) gm/dL Hct 30.7 L (34.0-46.0) % MCV 87.7 (80.0-100.0) fL MCH 28.1 (25.0-35.0) pg MCHC 32.0 (31.0-37.0) g/dL RDW 17.7 H (11.5-15.5) % Plt Count 360 (150-450) k/uL MPV 7.2 Neutrophils % 68 % Lymphocytes % 21 % Monocytes % 6 % Eosinophils % 3 % Basophils % 0 % Neutrophils # 4.5 (1.3-7.7) k/uL Lymphocytes # 1.4 (1.0-4.8) k/uL Monocytes # 0.4 (0-1.0) k/uL Eosinophils # 0.2 (0-0.7) k/uL Basophils # 0.0 (0-0.2) k/uL Hypochromasia Marked Poikilocytosis Slight Anisocytosis Slight PT 11.3 (10.0-12.5) sec INR 1.0 (<1.2) APTT 28.1 (22.0-30.0) sec Sodium 139 (137-145) mmol/L Potassium 3.3 L (3.5-5.1) mmol/L Chloride 108 H (98-107) mmol/L Carbon Dioxide 19 L (22-30) mmol/L Anion Gap 12 mmol/L BUN 15 (7-17) mg/dL Creatinine 0.84 (0.52-1.04) mg/dL Est GFR (CKD-EPI)AfAm 84 (>60 ml/min/1.73 sqM) Est GFR (CKD-EPI)NonAf 73 (>60 ml/min/1.73 sqM) Glucose 120 H (74-99) mg/dL Calcium 8.6 (8.4-10.2) mg/dL Magnesium 1.6 (1.6-2.3) mg/dL Total Bilirubin 0.6 (0.2-1.3) mg/dL AST 19 (14-36) U/L ALT 12 (4-34) U/L Alkaline Phosphatase 142 H (38-126) U/L Troponin I (0.000-0.034) ng/mL Total Protein 6.9 (6.3-8.2) g/dL Albumin 3.3 L (3.5-5.0) g/dL 12/25/22 Range/Units 07:50 WBC (3.8-10.6) k/uL RBC (3.80-5.40) m/uL Hgb (11.4-16.0) gm/dL Hct (34.0-46.0) % MCV (80.0-100.0) fL MCH (25.0-35.0) pg MCHC (31.0-37.0) g/dL RDW (11.5-15.5) % Plt Count (150-450) k/uL MPV Neutrophils % % Lymphocytes % % Monocytes % % Eosinophils % % Basophils % % Neutrophils # (1.3-7.7) k/uL Lymphocytes # (1.0-4.8) k/uL Monocytes # (0-1.0) k/uL Eosinophils # (0-0.7) k/uL Basophils # (0-0.2) k/uL Hypochromasia Poikilocytosis Anisocytosis PT (10.0-12.5) sec INR (<1.2) APTT (22.0-30.0) sec Sodium (137-145) mmol/L Potassium (3.5-5.1) mmol/L Chloride (98-107) mmol/L Carbon Dioxide (22-30) mmol/L Anion Gap mmol/L BUN (7-17) mg/dL Creatinine (0.52-1.04) mg/dL Est GFR (CKD-EPI)AfAm (>60 ml/min/1.73 sqM) Est GFR (CKD-EPI)NonAf (>60 ml/min/1.73 sqM) Glucose (74-99) mg/dL Calcium (8.4-10.2) mg/dL Magnesium (1.6-2.3) mg/dL Total Bilirubin (0.2-1.3) mg/dL AST (14-36) U/L ALT (4-34) U/L Alkaline Phosphatase (38-126) U/L Troponin I <0.012 (0.000-0.034) ng/mL Total Protein (6.3-8.2) g/dL Albumin (3.5-5.0) g/dL Critical Care Time Critical Care Time: Yes Total Critical Care Time: 35 Disposition Clinical Impression: Unstable angina Disposition: ADMITTED IP TO THIS HOSP Referrals: Olivier Trinidad DO [Primary Care Provider] - 1-2 days Time of Disposition: 09:17
[2022-12-25 08:31] LABS: Anisocytosis Slight; Basophils % (A) 0 %; Eosinophils # (A) 0.2 k/uL (0-0.7); Eosinophils % (A) 3 %; HCT 30.7 % (34.0-46.0); HGB 9.8 gm/dL (11.4-16.0); Hypochromasia Marked; Lymphocytes # (A) 1.4 k/uL (1.0-4.8); Lymphocytes % (A) 21 %; MCH 28.1 pg (25.0-35.0); MCV 87.7 fL (80.0-100.0); Mean Platelet Volume 7.2; Monocytes # (A) 0.4 k/uL (0-1.0); Monocytes % (A) 6 %; Neutrophils # (A) 4.5 k/uL (1.3-7.7); Neutrophils % (A) 68 %; Platelet Count 360 k/uL (150-450); Poikilocytosis Slight; RDW 17.7 % (11.5-15.5); WBC 6.6 k/uL (3.8-10.6)
[2022-12-25 08:42] LABS: ALT 12 U/L (4-34); AST 19 U/L (14-36); African American GFR (CKD) 84 (>60 ml/min/1.73 sqM); Albumin 3.3 g/dL (3.5-5.0); Alkaline Phosphatase 142 U/L (38-126); Anion Gap 12 mmol/L; Blood Urea Nitrogen 15 mg/dL (7-17); Calcium 8.6 mg/dL (8.4-10.2); Carbon Dioxide 19 mmol/L (22-30); Chloride 108 mmol/L (98-107); Glucose 120 mg/dL (74-99); Magnesium 1.6 mg/dL (1.6-2.3); Non-African American GFR(CKD) 73 (>60 ml/min/1.73 sqM); Potassium 3.3 mmol/L (3.5-5.1); Sodium 139 mmol/L (137-145); Total Bilirubin 0.6 mg/dL (0.2-1.3); Total Protein 6.9 g/dL (6.3-8.2)
[2022-12-25 08:51] LABS: Partial Thromboplastin Time 28.1 sec (22.0-30.0); Prothrombin Time 11.3 sec (10.0-12.5)
[2022-12-25] MEDS ORDERED: HEPARIN SODIUM 1,000 UN/ML (10ML VL) IV ONE (09:14)
[2022-12-25] MEDS ORDERED: NITROGLYCERIN SL TABS 0.4 MG TAB SUBLINGUAL PRN (09:17)
--- NOTE | 2022-12-25 10:08 | XR ---
EXAMINATION TYPE: XR chest 2V DATE OF EXAM: 12/25/2022 8:24 AM CLINICAL INDICATION:Female, 67 years old with history of Chest Pain; COMPARISON: Chest radiographs from 11/22/2022 TECHNIQUE: XR chest 2V Frontal and lateral views of the chest. FINDINGS: Lungs/Pleura: There is no evidence of pleural effusion, focal consolidation, or pneumothorax. Pulmonary vascularity: Pulmonary vascular congestion. Heart/mediastinum: Cardiomediastinal silhouette is enlarged and stable. Musculoskeletal: No acute osseous pathology. Midline sternotomy wires are noted. Other findings: None Left PICC with tip at the superior cavoatrial junction. IMPRESSION: 1. Pulmonary vascular congestion. Correlate with BNP for congestive heart failure. Correlate for aty pical pneumonia. 2. Left PICC in appropriate placement.
[2022-12-25] MEDS: HEPARIN SOD,PORK IN 0.45% NACL 25,000 UNIT in 0.45% NACL 1 250ML.BAG IV SCH (10:49)
[2022-12-25] MEDS ORDERED: SENNOSIDES 8.6 MG TAB PO PRN (13:00)
[2022-12-25] MEDS ORDERED: ALBUTEROL NEBULIZED 2.5 MG/3 ML INHALATION PRN (13:00)
[2022-12-25] MEDS ORDERED: VANCOMYCIN IV PER PHARMACY 1 EACH MISC MISCELLANE PRN (13:02)
[2022-12-25] MEDS: NITROGLYCERIN OINT 1 INCH/GM PACKET TOPICAL SCH ×3 (13:06→18:58)
[2022-12-25] MEDS ORDERED: VANCOMYCIN 1,000 MG in SODIUM CHLORIDE 0.9% 250 ML IVPB SCH (14:00)
[2022-12-25] MEDS: HYDROcodone/APAP 7.5-325MG 1 EACH TAB PO PRN ×2 (15:50→21:54)
--- NOTE | 2022-12-25 15:50 | P.HPIM ---
History of Present Illness H&P Date: 12/25/22 Patient is a 67-year-old female with history of CAD status post CABG, valvular heart disease, rheumatoid arthritis, history of CVA, COPD, hypertension, dyslipidemia, recent left knee surgery on IV antibiotics. She claims that she woke up this morning with chest pressure radiating to her neck and ear. She also had dyspnea as well as palpitations. It lasted about 30 minutes. It has now resolved. Denies currently any current chest pain, pressure, abdominal pain, nausea, vomiting, urinary or bowel complaints. In the ED, temperature was 98.9, pulse 110, blood pressure 168/77, saturating at 91% on room air. Laboratory workup showed WBC 6.6, hemoglobin 9.8, potassium 3.3, bicarb 19, glucose 120, troponin 0.086. EKG independently interpreted shows possible inferior and septal ST depressions. Patient started on heparin drip, cardiology consulted. Pertinent positives and negatives as discussed in HPI, a complete review of systems was performed and all other systems are negative. Patient seen and examined at bedside. Vital signs reviewed General: nontoxic, no distress, appears at stated age Derm: warm, dry, left knee wound VAC in place, PICC line in place Head: atraumatic, normocephalic, symmetric Eyes: EOMI, no lid lag, anicteric sclera, pupils equal round reactive to light ENT: Nose and ears atraumatic Neck: No thyromegaly, supple Mouth: no lip lesion, mucus membranes moist Cardiovascular: S1S2 reg, no murmur, no edema Lungs: clear to auscultation bilateral, no rhonchi, no rales, no wheeze, no accessory muscle use Abdominal: soft, nontender to palpation, no guarding, no appreciable organomegaly Ext: no gross muscle atrophy, muscle strength muscle strength 5 out of 5 in all 4 extremities, no contractures Neuro: CN II-XII grossly intact Psych: Alert, oriented, appropriate affect Assessment/Plan: Active: NSTEMI History of CAD status post CABG Valvular heart disease -Continue heparin drip, aspirin, statin, trend troponin -Cardiology consulted -Echocardiogram pending -Also on topical nitroglycerin Recent left knee septic arthritis -Has a wound VAC in place -Continue IV vancomycin, monitor for renal toxicity -PICC line in place Chronic: Rheumatoid arthritis Hypertension Dyslipidemia -Rest of the home medications reviewed and reconciled The patient is admitted with an anticipated greater than 2 midnight stay as inpatient status for evaluation of NSTEMI. Surrogate decision-maker: friend CODE STATUS: Full code DVT prophylaxis: Heparin drip Anticipated discharge date: Pending clinical course Anticipated discharge place: Pending clinical course A total of 65 minutes was spent on the care of this complex patient more than 50% of the time was spent in counseling and care coordination. Past Medical History Past Medical History: Coronary Artery Disease (CAD), Cancer, Chest Pain / Angina, COPD, CVA/TIA, GERD/Reflux, Hyperlipidemia, Hypertension, Osteoarthritis (OA), Rheumatoid Arthritis (RA), Skin Disorder, Vascular Disorder Additional Past Medical History / Comment(s): chronic back pain., scoliosis., heart murmur, SOB w/activity, hx of gastric ulcer, cervical cancer, eczema, TIA-no residuals., frequent diarrhea., hepatitis C with tx,hamlet cataracts, left knee replaced recently-not healing well per pt, lot of pain, recent cataract surg. History of Any Multi-Drug Resistant Organisms: MRSA Date of last positivie culture/infection: 12/11/22 MDRO Source:: Left Knee/Blood Past Surgical History: Section, Cholecystectomy, Coronary Bypass/CABG, Heart Catheterization, Heart Catheterization With Stent, Joint Replacement, Orthopedic Surgery, Tubal Ligation Additional Past Surgical History / Comment(s): triple CABG 2008, ORIF right leg, ., heart cath with stent 2013(Mph)., heart cath no stent (2019). left knee replaced 03-15-22, tip fib screws Past Anesthesia/Blood Transfusion Reactions: No Reported Reaction Date of Last Stent Placement:: 2013 Past Psychological History: Anxiety, Depression Smoking Status: Former smoker Past Alcohol Use History: None Reported Past Drug Use History: None Reported - Past Family History Father Family Medical History: Cancer, Dementia Additional Family Medical History / Comment(s): AT AGE 84-LUNG CANCER. Mother Family Medical History: Coronary Artery Disease (CAD) Additional Family Medical History / Comment(s): AT AGE 73. Brother(s) Family Medical History: Cancer Medications and Allergies Home Medications Medication Instructions Recorded Confirmed Type Isosorbide Mononitrate [Imdur] 30 mg PO DAILY 11/22/13 12/25/22 History Metoprolol Tartrate [Lopressor] 50 mg PO BID 01/19/17 12/25/22 History Omeprazole 20 mg PO DAILY 01/19/17 12/25/22 History traZODone HCL 50 mg PO HS 02/26/19 12/25/22 History Hydroxychloroquine Sulfate 200 mg PO BID 10/09/22 12/25/22 History [Plaquenil] Albuterol Nebulized [Ventolin 2.5 mg INHALATION RT-QID PRN 11/17/22 12/25/22 History Nebulized] Ascorbic Acid [Vitamin C] 1,000 mg PO DAILY 11/17/22 12/25/22 History Diclofenac Sodium [Voltaren 1 gm TOPICAL QID PRN 11/17/22 12/25/22 History Arthritis Pain 1% Gel] Sennosides [Senokot] 8.6 mg PO BID PRN 11/17/22 12/25/22 History Furosemide [Lasix] 20 mg PO DAILY #30 tab 11/23/22 12/25/22 Rx Aspirin EC [Ecotrin] 325 mg PO DAILY 12/25/22 12/25/22 History Atorvastatin [Lipitor] 80 mg PO HS 12/25/22 12/25/22 History Citalopram Hydrobromide [CeleXA] 40 mg PO DAILY 12/25/22 12/25/22 History HYDROcodone/APAP 7.5-325MG [[place] 1 tab PO Q4H PRN 12/25/22 12/25/22 History 7.5-325] Vancomycin 1 dose IV DAILY 12/25/22 12/25/22 History Vitamin D3(Unknown Dose) 1 tab PO DAILY 12/25/22 12/25/22 History lisinopriL [Zestril] 5 mg PO DAILY 12/25/22 12/25/22 History Allergies Allergy/AdvReac Type Severity Reaction Status Date / Time codeine AdvReac Nausea & Verified 12/25/22 07:42 Vomiting Physical Exam Vitals: Vital Signs Temp Pulse Resp BP Pulse Ox 12/25/22 11:21 87 18 146/65 98 12/25/22 08:38 80 18 131/60 96 12/25/22 07:40 98.9 F 110 H 18 168/77 91 L Intake and Output 12/25/22 12/25/22 12/25/22 06:59 14:59 22:59 Other: Weight 49.895 kg Results CBC & Chem 7: 12/25/22 07:50 12/25/22 07:50 Labs: Abnormal Lab Results - Last 24 Hours (Table) 12/25/22 12/25/22 12/25/22 Range/Units 07:50 07:50 12:13 RBC 3.50 L (3.80-5.40) m/uL Hgb 9.8 L (11.4-16.0) gm/dL Hct 30.7 L (34.0-46.0) % RDW 17.7 H (11.5-15.5) % Potassium 3.3 L (3.5-5.1) mmol/L Chloride 108 H (98-107) mmol/L Carbon Dioxide 19 L (22-30) mmol/L Glucose 120 H (74-99) mg/dL Alkaline Phosphatase 142 H (38-126) U/L Troponin I 0.086 H* (0.000-0.034) ng/mL Albumin 3.3 L (3.5-5.0) g/dL
[2022-12-25] MEDS ORDERED: POTASSIUM CHLORIDE ER 20 MEQ TAB.ER PO STA (18:25)
--- NOTE | 2022-12-25 19:00 | P.CRDCN ---
History of Present Illness Consult date: 12/25/22 History of present illness: HISTORY OF PRESENTING ILLNESS Patient is a 67-year-old known to Dr. Simental. She has a past medical history of CAD status post CABG 2008 with TINOCO to LAD, stenting of LAD distal to TINOCO anastomosis, SVG to LCx, SVG to RCA, PAD, valvular heart disease with moderate aortic stenosis and moderate aortic regurgitation, hypertension dyslipidemia carotid atherosclerosis, history of smoking. She presented to the hospital because of substernal chest pain and chest pressure. She is also been feeling significantly weak lately On this admission she had mild elevation of troponin. Initial was 0.01, repeat 0.08. ECG shows sinus tachycardia with LVH and nonspecific ST changes in lateral leads REVIEW OF SYSTEMS 14 point review of system is negative except what is mentioned above in HPI. PHYSICAL EXAMINATION Vital signs reviewed. Head: Normocephalic. Eyes: Sclerae nonicteric. Neck: Brisk carotid upstroke, no jugular venous distention. Lungs: Clear to auscultation. Heart: Regular rate and rhythm, loud systolic murmur Abdomen: Soft nontender, positive bowel sounds no organomegaly. Extremities: Poor pulses in distal extremities. Wound VAC on left knee Neuro: Alert, oritented, no focal deficits Last echo from 11/18/2022 shows EF 55%, moderate aortic stenosis, [id number] mitral regurgitation ASSESSMENT NSTEMI CAD status post PCI to LAD distal to TINOCO anastomosis Status post CABG with TINOOC to LAD, SVG to OM and PDA Advanced COPD Prior tobacco smoker Severe peripheral artery disease with carotid disease Moderate aortic stenosis and moderate mitral regurgitation PLAN Continue IV heparin drip Updated echo to look for any wall motion abnormality Aspirin 81 mg, atorvastatin 80 mg, Imdur 30 mg, lisinopril 5 mg, metoprolol 50 minutes twice a day Lasix 20 mg Past Medical History Past Medical History: Coronary Artery Disease (CAD), Cancer, Chest Pain / Angin a, COPD, CVA/TIA, GERD/Reflux, Hyperlipidemia, Hypertension, Osteoarthritis (OA), Rheumatoid Arthritis (RA), Skin Disorder, Vascular Disorder Additional Past Medical History / Comment(s): chronic back pain., scoliosis., heart murmur, SOB w/activity, hx of gastric ulcer, cervical cancer, eczema, TIA-no residuals., frequent diarrhea., hepatitis C with tx,hamlet cataracts, left knee replaced recently-not healing well per pt, lot of pain, recent cataract surg. History of Any Multi-Drug Resistant Organisms: MRSA Date of last positivie culture/infection: 12/11/22 MDRO Source:: Left Knee/Blood Past Surgical History: Section, Cholecystectomy, Coronary Bypass/CABG, Heart Catheterization, Heart Catheterization With Stent, Joint Replacement, Orthopedic Surgery, Tubal Ligation Additional Past Surgical History / Comment(s): triple CABG 2008, ORIF right leg, ., heart cath with stent 2013(Mph)., heart cath no stent (2019). left knee replaced 03-15-22, tip fib screws Past Anesthesia/Blood Transfusion Reactions: No Reported Reaction Date of Last Stent Placement:: 2013 Past Psychological History: Anxiety, Depression Smoking Status: Former smoker Past Alcohol Use History: None Reported Past Drug Use History: None Reported - Past Family History Father Family Medical History: Cancer, Dementia Additional Family Medical History / Comment(s): AT AGE 84-LUNG CANCER. Mother Family Medical History: Coronary Artery Disease (CAD) Additional Family Medical History / Comment(s): AT AGE 73. Brother(s) Family Medical History: Cancer Medications and Allergies Home Medications Medication Instructions Recorded Confirmed Type Isosorbide Mononitrate [Imdur] 30 mg PO DAILY 11/22/13 12/25/22 History Metoprolol Tartrate [Lopressor] 50 mg PO BID 01/19/17 12/25/22 History Omeprazole 20 mg PO DAILY 01/19/17 12/25/22 History traZODone HCL 50 mg PO HS 02/26/19 12/25/22 History Hydroxychloroquine Sulfate 200 mg PO BID 10/09/22 12/25/22 History [Plaquenil] Albuterol Nebulized [Ventolin 2.5 mg INHALATION RT-QID PRN 11/17/22 12/25/22 History Nebulized] Ascorbic Acid [Vitamin C] 1,000 mg PO DAILY 11/17/22 12/25/22 History Diclofenac Sodium [Voltaren 1 gm TOPICAL QID PRN 11/17/22 12/25/22 History Arthritis Pain 1% Gel] Sennosides [Senokot] 8.6 mg PO BID PRN 11/17/22 12/25/22 History Furosemide [Lasix] 20 mg PO DAILY #30 tab 11/23/22 12/25/22 Rx Aspirin EC [Ecotrin] 325 mg PO DAILY 12/25/22 12/25/22 History Atorvastatin [Lipitor] 80 mg PO HS 12/25/22 12/25/22 History Citalopram Hydrobromide [CeleXA] 40 mg PO DAILY 12/25/22 12/25/22 History HYDROcodone/APAP 7.5-325MG [[place] 1 tab PO Q4H PRN 12/25/22 12/25/22 History 7.5-325] Vancomycin 1 dose IV DAILY 12/25/22 12/25/22 History Vitamin D3(Unknown Dose) 1 tab PO DAILY 12/25/22 12/25/22 History lisinopriL [Zestril] 5 mg PO DAILY 12/25/22 12/25/22 History Allergies Allergy/AdvReac Type Severity Reaction Status Date / Time codeine AdvReac Nausea & Verified 12/25/22 07:42 Vomiting Physical Exam Vitals: Vital Signs Temp Pulse Resp BP Pulse Ox 12/25/22 17:50 78 18 145/59 96 12/25/22 16:00 98.9 F 77 18 125/57 96 12/25/22 13:30 81 18 161/71 97 12/25/22 12:30 85 18 151/68 96 12/25/22 11:21 87 18 146/65 98 12/25/22 08:38 80 18 131/60 96 12/25/22 07:40 98.9 F 110 H 18 168/77 91 L Intake and Output 12/25/22 12/25/22 12/25/22 06:59 14:59 22:59 Other: Weight 49.895 kg Results 12/25/22 07:50 12/25/22 07:50 Cardiac Enzymes 12/25/22 12/25/22 12/25/22 Range/Units 07:50 07:50 12:13 AST 19 (14-36) U/L Troponin I <0.012 0.086 H* (0.000-0.034) ng/mL 12/25/22 Range/Units 15:11 AST (14-36) U/L Troponin I 0.089 H* (0.000-0.034) ng/mL Coagulation 12/25/22 12/25/22 Range/Units 07:50 17:16 PT 11.3 (10.0-12.5) sec APTT 28.1 35.0 H (22.0-30.0) sec CBC 12/25/22 Range/Units 07:50 WBC 6.6 (3.8-10.6) k/uL RBC 3.50 L (3.80-5.40) m/uL Hgb 9.8 L (11.4-16.0) gm/dL Hct 30.7 L (34.0-46.0) % Plt Count 360 (150-450) k/uL Comprehensive Metabolic Panel 12/25/22 Range/Units 07:50 Sodium 139 (137-145) mmol/L Potassium 3.3 L (3.5-5.1) mmol/L Chloride 108 H (98-107) mmol/L Carbon Dioxide 19 L (22-30) mmol/L BUN 15 (7-17) mg/dL Creatinine 0.84 (0.52-1.04) mg/dL Glucose 120 H (74-99) mg/dL Calcium 8.6 (8.4-10.2) mg/dL AST 19 (14-36) U/L ALT 12 (4-34) U/L Alkaline Phosphatase 142 H (38-126) U/L Total Protein 6.9 (6.3-8.2) g/dL Albumin 3.3 L (3.5-5.0) g/dL Current Medications Generic Name Dose Route Start Last Admin Trade Name Freq PRN Reason Stop Dose Admin Hydrocodone Bitart/Acetaminophen 1 each 12/25/22 15:08 12/25/22 15:50 Hydrocodone/Apap 7.5-325mg 1 Each Tab PO 1 each Q6HR PRN Administration Pain Albuterol Sulfate 2.5 mg 12/25/22 13:00 Albuterol Nebulized 2.5 Mg/3 Ml INHALATION RT-QID PRN Shortness Of Breath Ascorbic Acid 1,000 mg 12/26/22 09:00 Ascorbic Acid 500 Mg Tab PO DAILY [facility] Aspirin 81 mg 12/26/22 09:00 Aspirin 81 Mg PO DAILY [facility] Atorvastatin Calcium 80 mg 12/25/22 21:00 Atorvastatin 80 Mg Tab PO HS [facility] Cholecalciferol 25 mcg 12/26/22 09:00 Cholecalciferol 25 Mcg (1000 Iu) Tablet PO DAILY [facility] Citalopram Hydrobromide 40 mg 12/26/22 09:00 Citalopram Hydrobromide 20 Mg Tab PO DAILY [facility] Furosemide 20 mg 12/26/22 09:00 Furosemide 20 Mg Tab PO DAILY [facility] Hydroxychloroquine Sulfate 200 mg 12/25/22 21:00 Hydroxychloroquine Sulfate 200 Mg Tab PO BID [facility] Heparin Sodium/Sodium Chloride 250 mls @ 5.987 mls/hr 12/25/22 09:15 12/25/22 10:49 25,000 unit/ Sodium Chloride IV 12 units/kg/hr .Q24H [facility] 5.987 mls/hr Administration Protocol 12 UNITS/KG/HR Vancomycin HCl 1,000 mg/ 250 mls @ 125 mls/hr 12/25/22 14:00 12/25/22 16:01 Sodium Chloride IVPB 125 mls/hr Q24H [facility] Administration Isosorbide Mononitrate 30 mg 12/26/22 09:00 Isosorbide Mononitrate Er 30 Mg Tab.Er.24h PO DAILY [facility] Lisinopril 5 mg 12/26/22 09:00 Lisinopril 5 Mg Tab PO DAILY [facility] Metoprolol Tartrate 50 mg 12/25/22 21:00 Metoprolol Tartrate 50 Mg Tab PO BID [facility] Nitroglycerin 0.4 mg 12/25/22 09:17 Nitroglycerin Sl Tabs 0.4 Mg Tab SUBLINGUAL Q5M PRN Chest Pain Nitroglycerin 1 inch 12/25/22 12:00 12/25/22 18:58 Nitroglycerin Oint 1 Inch/Gm Packet TOPICAL Not Given Q6HR [facility] Pantoprazole Sodium 40 mg 12/26/22 07:30 Pantoprazole 40 Mg Tablet PO AC-BRKFST [facility] Senna 8.6 mg 12/25/22 13:00 Sennosides 8.6 Mg Tab PO BID PRN Constipation Trazodone HCl 50 mg 12/25/22 21:00 Trazodone Hcl 50 Mg Tab PO [facility] Intake and Output 12/25/22 12/25/22 12/25/22 06:59 14:59 22:59 Other: Weight 49.895 kg Patient Weight 12/26/22 06:59 Weight 49.895 kg 12/25/22 07:50 12/25/22 07:50
[2022-12-25] MEDS ORDERED: HEPARIN SODIUM 1,000 UN/ML (10ML VL) IV PRN (19:32)
[2022-12-25] MEDS: traZODone HCL 50 MG TAB PO SCH (21:54)
[2022-12-25] MEDS: ATORVASTATIN 80 MG TAB PO SCH (21:54)
[2022-12-25] MEDS: METOPROLOL TARTRATE 50 MG TAB PO SCH (21:54)
[2022-12-25] MEDS: HYDROXYCHLOROQUINE SULFATE 200 MG TAB PO SCH (21:54)
[2022-12-25] MEDS ORDERED: MORPHINE SULFATE 2 MG/ML SYRINGE IVP STA (22:49)
[2022-12-26] MEDS: ACETAMINOPHEN TAB 325 MG TAB PO PRN ×4 (00:28→21:09)
[2022-12-26] MEDS: NITROGLYCERIN OINT 1 INCH/GM PACKET TOPICAL SCH ×4 (00:30→16:02)
[2022-12-26] MEDS: HYDROcodone/APAP 7.5-325MG 1 EACH TAB PO PRN ×4 (03:02→22:36)
[2022-12-26] MEDS: PANTOPRAZOLE 40 MG TABLET PO SCH (05:48)
[2022-12-26 06:43] LABS: Magnesium 1.8 mg/dL (1.6-2.3)
[2022-12-26 06:44] LABS: African American GFR (CKD) >90 (>60 ml/min/1.73 sqM); Anion Gap 5 mmol/L; Blood Urea Nitrogen 15 mg/dL (7-17); Calcium 8.5 mg/dL (8.4-10.2); Carbon Dioxide 20 mmol/L (22-30); Chloride 114 mmol/L (98-107); Glucose 88 mg/dL (74-99); Non-African American GFR(CKD) 80 (>60 ml/min/1.73 sqM); Potassium 4.2 mmol/L (3.5-5.1); Sodium 139 mmol/L (137-145)
[2022-12-26] MEDS ORDERED: ASPIRIN 325 MG TAB PO SCH (09:00)
[2022-12-26] MEDS: VANCOMYCIN 1,000 MG in SODIUM CHLORIDE 0.9% 250 ML IVPB SCH (09:49)
[2022-12-26] MEDS: ASPIRIN 81 MG PO SCH (09:50)
[2022-12-26] MEDS: lisinopriL 5 MG TAB PO SCH (09:50)
[2022-12-26] MEDS: HYDROXYCHLOROQUINE SULFATE 200 MG TAB PO SCH ×2 (09:51→21:09)
[2022-12-26] MEDS: CHOLECALCIFEROL 25 MCG (1000 IU) TABLET PO SCH (09:51)
[2022-12-26] MEDS: ASCORBIC ACID 500 MG TAB PO SCH (09:51)
[2022-12-26] MEDS: METOPROLOL TARTRATE 50 MG TAB PO SCH ×2 (09:51→21:09)
[2022-12-26] MEDS: ISOSORBIDE MONONITRATE ER 30 MG TAB.ER.24H PO SCH (09:51)
[2022-12-26] MEDS: CITALOPRAM HYDROBROMIDE 20 MG TAB PO SCH (09:51)
[2022-12-26] MEDS: FUROSEMIDE 20 MG TAB PO SCH (09:51)
--- NOTE | 2022-12-26 11:19 | CA ---
Transthoracic Echo Report Name: Brynn Sr Age: 67 Gender: F : 1955 Exam Date: 12/25/2022 15:36 Exam Location: [facility] Ht (in): 59 Wt (lb): 110 Ordering Physician: Dylon Nayak MD ([email or web address]) Attending/Referring Phys: Electrophysiology Scientist Jaye Robles RDCS Procedure CPT: Indications: unstable angina Cardiac Hx: Technical Quality: Fair Contrast 1: Total Dose (mL): Contrast 2: Total Dose (mL): MEASUREMENTS (Male / Female) Normal Values 2D ECHO LV Diastolic Diameter PLAX 3.5 cm 4.2 - 5.9 / 3.9 - 5.3 cm LV Systolic Diameter PLAX 2.9 cm IVS Diastolic Thickness 1.7 cm 0.6 - 1.0 / 0.6 - 0.9 cm LVPW Diastolic Thickness 1.4 cm 0.6 - 1.0 / 0.6 - 0.9 cm LV Relative Wall Thickness 0.9 DOPPLER AV Peak Velocity 364.7 cm/s AV Peak Gradient 53.2 mmHg AV Mean Velocity 280.9 cm/s AV Mean Gradient 34.1 mmHg AV Velocity Time Integral 88.7 cm MV Peak Velocity 165.0 cm/s MV Peak Gradient 10.9 mmHg MV Mean Velocity 104.5 cm/s MV Mean Gradient 4.7 mmHg MV Velocity Time Integral 36.6 cm TR Peak Velocity 317.8 cm/s TR Peak Gradient 40.4 mmHg Right Ventricular Systolic Press 45.4 mmHg FINDINGS Left Ventricle Moderately increased left ventricular wall thickness. Left ventricular cavity size normal. Normal left ventricular systolic function with no obvious regional wall motion abnormalities. Left ventricular ejection fraction is estimated at 55-60 %. Right Ventricle Right Atrium Left Atrium Mitral Valve Aortic Valve Moderate aortic stenosis with a peak gradient of 53 mmHg and a mean gradient of 34 mmHg. Tricuspid Valve Pulmonic Valve Pericardium No pericardial effusion. Aorta CONCLUSIONS Normal LV size and systolic function, EF 55% No obvious regional wall motion abnormality Moderate MR Moderate mitral stenosis with mean gradient 34 mmHg Mild AI Previewed by: Dr Dylon Nayak (Electronically Signed) Final Date: 26 December 2022 11:18
--- NOTE | 2022-12-26 11:47 | P.PN ---
Subjective Progress Note Date: 12/26/22 Hospital Course: 67-year-old female with history of CAD status post CABG, valvular heart disease, rheumatoid arthritis, history of CVA, COPD, hypertension, dyslipidemia, recent left knee surgery on IV antibiotics, presented with chest pain. In the ED, temperature was 98.9, pulse 110, blood pressure 168/77, saturating at 91% on room air. Laboratory workup showed WBC 6.6, hemoglobin 9.8, potassium 3.3, bicarb 19, glucose 120, troponin 0.086. EKG independently interpreted shows possible inferior and septal ST depressions. Patient started on heparin drip, cardiology consulted. Subjective: Patient seen and examined at bedside. No acute events overnight. Denies any further chest pain. Pertinent positives and negatives as discussed above, a complete review of systems was performed and all other systems are negative. Vitals Signs Reviewed. General: nontoxic, no distress, appears at stated age Derm: warm, dry, left knee wound VAC in place, PICC line in place Head: atraumatic, normocephalic, symmetric Eyes: EOMI, no lid lag, anicteric sclera, pupils equal round reactive to light ENT: Nose and ears atraumatic Neck: No thyromegaly, supple Mouth: no lip lesion, mucus membranes moist Cardiovascular: S1S2 reg, no murmur, no edema Lungs: clear to auscultation bilateral, no rhonchi, no rales, no wheeze, no accessory muscle use Abdominal: soft, nontender to palpation, no guarding, no appreciable organomegaly Ext: no gross muscle atrophy, muscle strength muscle strength 5 out of 5 in all 4 extremities, no contractures Neuro: CN II-XII grossly intact Psych: Alert, oriented, appropriate affect Data Reviewed Today: Pertinent Labs: aPTT 53.9, bicarb 20, creatinine 0.70 Imaging: EKG independently interpreted from this morning, shows normal sinus rhythm Echocardiogram report reviewed, shows normal LV size and systolic function with EF 55%, no obvious regional wall motion abnormalities, moderate MR, moderate mitral stenosis Assessment and Plan: Active: NSTEMI History of CAD status post CABG Valvular heart disease -Currently chest pain-free -On telemetry -Continue heparin drip, aspirin, statin -Cardiology following -Echocardiogram no obvious regional wall motion abnormalities -Also on topical nitroglycerin Recent left knee septic arthritis -Has a wound VAC in place -Continue IV vancomycin, monitor for renal toxicity -PICC line in place Chronic: Rheumatoid arthritis Hypertension Dyslipidemia DVT ppx: Heparin drip Code status: Full code Anticipated discharge place: Pending clinical course Anticipated discharge time: Pending clinical course Objective - Vital Signs Vital signs: Vital Signs Temp 97.5 F L 12/26/22 11:29 Pulse 63 12/26/22 11:29 Resp 16 12/26/22 11:29 BP 127/51 12/26/22 11:29 Pulse Ox 97 12/26/22 11:29 FiO2 Intake & Output 12/25/22 12/26/22 12/26/22 18:59 06:59 18:59 Intake Total 626.064 10 Output Total 300 Balance 326.064 10 Weight 49.895 kg 49.895 kg Intake: IV 10 Invasive Line 2 10 Intake, IV Titration 86.064 Amount Heparin Sod,Pork in 0.45% 86.064 NaCl 25,000 unit In 0.45 % NaCl 1 250ml.bag @ 12 UNITS/KG/HR 5.987 mls/hr IV .Q24H [facility] Rx#: [id number] Oral 540 Output: Urine 300 Other: Voiding Method External Catheter External Catheter - Labs CBC & Chem 7: 12/25/22 07:50 12/26/22 05:36 Labs: Abnormal Lab Results - Last 24 Hours (Table) 12/25/22 12/25/22 12/25/22 Range/Units 07:50 12:13 15:11 APTT (22.0-30.0) sec Chloride (98-107) mmol/L Carbon Dioxide (22-30) mmol/L Troponin I 0.086 H* 0.089 H* (0.000-0.034) ng/mL Procalcitonin 0.32 H (0.02-0.09) ng/mL 12/25/22 12/25/22 12/26/22 Range/Units 17:16 22:54 05:36 APTT 35.0 H 30.9 H (22.0-30.0) sec Chloride 114 H (98-107) mmol/L Carbon Dioxide 20 L (22-30) mmol/L Troponin I (0.000-0.034) ng/mL Procalcitonin (0.02-0.09) ng/mL 12/26/22 Range/Units 05:37 APTT 53.9 H (22.0-30.0) sec Chloride (98-107) mmol/L Carbon Dioxide (22-30) mmol/L Troponin I (0.000-0.034) ng/mL Procalcitonin (0.02-0.09) ng/mL
[2022-12-26 14:06] LABS: Chol/HDL Ratio 3.08 Ratio; LDL Cholesterol,Calculated 68.6 mg/dL (0.0-131.0)
[2022-12-26] MEDS: HEPARIN SOD,PORK IN 0.45% NACL 25,000 UNIT in 0.45% NACL 1 250ML.BAG IV SCH (17:56)
[2022-12-26] MEDS: NYSTATIN 100,000UNIT/GM CREAM 30 GM TUBE TOPICAL SCH (17:57)
--- NOTE | 2022-12-26 19:20 | P.PN ---
Subjective Progress Note Date: 12/26/22 Progress note: Patient denies any further active chest pains last 24 hours. Her echocardiogram showed a preserved LV systolic function with moderate aortic stenosis and moderate mitral regurgitation. HISTORY OF PRESENTING ILLNESS Patient is a 67-year-old known to Dr. Simental. She has a past medical history of CAD status post CABG 2008 with TINOCO to LAD, stenting of LAD distal to TINOCO anastomosis, SVG to LCx, SVG to RCA, PAD, valvular heart disease with moderate aortic stenosis and moderate aortic regurgitation, hypertension dyslipidemia carotid atherosclerosis, history of smoking. She presented to the hospital because of substernal chest pain and chest pressure. She is also been feeling significantly weak lately On this admission she had mild elevation of troponin. Initial was 0.01, repeat 0.08. ECG shows sinus tachycardia with LVH and nonspecific ST changes in late ral leads REVIEW OF SYSTEMS 14 point review of system is negative except what is mentioned above in HPI. PHYSICAL EXAMINATION Vital signs reviewed. Head: Normocephalic. Eyes: Sclerae nonicteric. Neck: Brisk carotid upstroke, no jugular venous distention. Lungs: Clear to auscultation. Heart: Regular rate and rhythm, loud systolic murmur Abdomen: Soft nontender, positive bowel sounds no organomegaly. Extremities: Poor pulses in distal extremities. Wound VAC on left knee Neuro: Alert, oritented, no focal deficits Last echo from 11/18/2022 shows EF 55%, moderate aortic stenosis, [id number] mitral regurgitation ASSESSMENT NSTEMI CAD status post PCI to LAD distal to TINOCO anastomosis Status post CABG with TINOCO to LAD, SVG to OM and PDA Advanced COPD Prior tobacco smoker Severe peripheral artery disease with carotid disease Moderate aortic stenosis and moderate mitral regurgitation PLAN Due to her elevated troponins, we will treat for NSTEMI. We will continue IV heparin drip for total of 48 hours which will be completed tomorrow morning. We discussed the case with Dr. Butler tomorrow if she would benefit from further cardiac interventions at this time as she recently had a heart cath Aspirin 81 mg, atorvastatin 80 mg, Imdur 30 mg, lisinopril 5 mg, metoprolol 50 minutes twice a day Lasix 20 mg If further chest pain, will intensify integument is by adding Ranexa Objective - Vital Signs Vital signs: Vital Signs Temp 98.1 F 12/26/22 16:07 Pulse 62 12/26/22 16:07 Resp 16 12/26/22 16:07 BP 128/57 12/26/22 16:07 Pulse Ox 95 12/26/22 16:07 FiO2 Intake & Output 12/26/22 12/26/22 12/27/22 06:59 18:59 06:59 Intake Total 626.064 169 Output Total 300 300 Balance 326.064 -131 Weight 49.895 kg Intake: IV 20 Invasive Line 2 20 Intake, IV Titration 86.064 149 Amount Heparin Sod,Pork in 0.45% 86.064 149 NaCl 25,000 unit In 0.45 % NaCl 1 250ml.bag @ 12 UNITS/KG/HR 5.987 mls/hr IV .Q24H [facility] Rx#: [id number] Oral 540 Output: Urine 300 300 Other: Voiding Method External Catheter External Catheter - Labs CBC & Chem 7: 12/25/22 07:50 12/26/22 05:36 Labs: Abnormal Lab Results - Last 24 Hours (Table) 12/25/22 12/25/22 12/26/22 Range/Units 07:50 22:54 05:36 APTT 30.9 H (22.0-30.0) sec Chloride 114 H (98-107) mmol/L Carbon Dioxide 20 L (22-30) mmol/L Procalcitonin 0.32 H (0.02-0.09) ng/mL 12/26/22 Range/Units 05:37 APTT 53.9 H (22.0-30.0) sec Chloride (98-107) mmol/L Carbon Dioxide (22-30) mmol/L Procalcitonin (0.02-0.09) ng/mL
[2022-12-26] MEDS: ATORVASTATIN 80 MG TAB PO SCH (21:09)
[2022-12-26] MEDS: traZODone HCL 50 MG TAB PO SCH (21:09)
[2022-12-27] MEDS: VANCOMYCIN 1,000 MG in SODIUM CHLORIDE 0.9% 250 ML IVPB SCH ×2 (00:01→16:22)
[2022-12-27] MEDS: NYSTATIN 100,000UNIT/GM CREAM 30 GM TUBE TOPICAL SCH ×4 (00:01→21:37)
[2022-12-27] MEDS: NITROGLYCERIN OINT 1 INCH/GM PACKET TOPICAL SCH ×4 (00:10→16:22)
[2022-12-27] MEDS: ACETAMINOPHEN TAB 325 MG TAB PO PRN (03:06)
[2022-12-27] MEDS: HYDROcodone/APAP 7.5-325MG 1 EACH TAB PO PRN ×3 (04:51→22:46)
[2022-12-27] MEDS: PANTOPRAZOLE 40 MG TABLET PO SCH (06:32)
[2022-12-27] MEDS ORDERED: NITROGLYCERIN SL TABS 0.4 MG TAB SUBLINGUAL PRN (07:26)
[2022-12-27] MEDS ORDERED: ALPRAZolam 0.5 MG TAB PO PRN (07:26)
[2022-12-27] MEDS ORDERED: ASPIRIN 325 MG TAB PO STA (07:26)
[2022-12-27] MEDS ORDERED: ALPRAZolam 0.25 MG TAB PO PRN (07:26)
[2022-12-27] MEDS ORDERED: ATORVASTATIN 80 MG TAB PO STA (07:26)
[2022-12-27 08:30] LABS: Anisocytosis Slight; Basophils % (A) 0 %; Eosinophils # (A) 0.2 k/uL (0-0.7); Eosinophils % (A) 3 %; HGB 8.4 gm/dL (11.4-16.0); Hypochromasia Marked; Lymphocytes # (A) 1.5 k/uL (1.0-4.8); Lymphocytes % (A) 30 %; MCH 27.8 pg (25.0-35.0); MCHC 31.3 g/dL (31.0-37.0); MCV 88.8 fL (80.0-100.0); Monocytes # (A) 0.3 k/uL (0-1.0); Monocytes % (A) 6 %; Neutrophils % (A) 60 %; Platelet Count 275 k/uL (150-450); RBC 3.04 m/uL (3.80-5.40); RDW 17.9 % (11.5-15.5); WBC 5.1 k/uL (3.8-10.6)
[2022-12-27 08:40] LABS: African American GFR (CKD) 69 (>60 ml/min/1.73 sqM); Anion Gap 7 mmol/L; Blood Urea Nitrogen 18 mg/dL (7-17); Calcium 8.6 mg/dL (8.4-10.2); Carbon Dioxide 21 mmol/L (22-30); Chloride 112 mmol/L (98-107); Glucose 83 mg/dL (74-99); Non-African American GFR(CKD) 60 (>60 ml/min/1.73 sqM); Potassium 3.8 mmol/L (3.5-5.1); Sodium 140 mmol/L (137-145)
[2022-12-27] MEDS: METOPROLOL TARTRATE 50 MG TAB PO SCH ×2 (08:49→21:37)
[2022-12-27] MEDS: CITALOPRAM HYDROBROMIDE 20 MG TAB PO SCH (08:49)
[2022-12-27] MEDS: FUROSEMIDE 20 MG TAB PO SCH (08:49)
[2022-12-27] MEDS: HYDROXYCHLOROQUINE SULFATE 200 MG TAB PO SCH ×2 (08:49→21:37)
[2022-12-27] MEDS: lisinopriL 5 MG TAB PO SCH (08:50)
[2022-12-27] MEDS: ASPIRIN 81 MG PO SCH (08:50)
[2022-12-27] MEDS: CHOLECALCIFEROL 25 MCG (1000 IU) TABLET PO SCH (08:50)
[2022-12-27] MEDS: ASCORBIC ACID 500 MG TAB PO SCH (08:50)
[2022-12-27] MEDS: ISOSORBIDE MONONITRATE ER 30 MG TAB.ER.24H PO SCH (08:50)
[2022-12-27] MEDS ORDERED: IV FLUID CONTINUATION 1,000 ML IV ONE (09:02)
[2022-12-27] MEDS ORDERED: VERAPAMIL 2.5 MG/ML 2 ML AMP ONE (09:04)
[2022-12-27] MEDS: HEPARIN SOD,PORK IN 0.45% NACL 25,000 UNIT in 0.45% NACL 1 250ML.BAG IV SCH (09:04)
[2022-12-27] MEDS ORDERED: LIDOCAINE 1% INJ 10MG/ML (20 ML MDV) ONE (09:04)
[2022-12-27] MEDS ORDERED: HEPARIN SODIUM 1,000 UN/ML (10ML VL) ONE (09:31)
[2022-12-27] MEDS: MIDAZOLAM 2 MG/2 ML VIAL IVP ONE ×2 (10:01→10:22)
[2022-12-27] MEDS ORDERED: LIDOCAINE 1% INJ 10MG/ML (20 ML MDV) SQ ONE (10:19)
[2022-12-27] MEDS ORDERED: IOPAMIDOL-370 100ML BTL INJ ONE ×2 (10:48→11:15)
[2022-12-27] MEDS ORDERED: RX INFO: IV CONTRAST WAS GIVEN 1 EACH MISC MISCELLANE PRN (11:32)
--- NOTE | 2022-12-27 11:38 | P.PCN ---
Date of Procedure: 12/27/22 Operative Findings: CARDIAC CATHETERIZATION PERFORMING PHYSICIAN: Gabo Simental MD, RPVI PROCEDURE PERFORMED: 1. Selective right and left coronary angiogram 2. TINOCO to LAD angiogram, SVG to LCx angiogram, and SVG to RCA angiogram 3. Gradient measurement across the right iliac artery 4. Selective right common femoral artery angiogram and ultrasound guided access of the right common femoral artery INDICATION: Acute coronary syndrome to 67-year-old female patient with CAD and status post CABG with TINOCO into LAD and SVG to OM and SVG to RCA and also she underwent stenting of the LAD distal to the LAD anastomosis. COMPLICATION: None APPROACH: Right common femoral artery LEVEL OF SEDATION: Moderate with sedation in length of 58 minutes PROCEDURE DESCRIPTION: After obtaining an informed consent, the patient was brought to cardiac pathology lab technician. Local anesthesia was performed using lidocaine subcutaneously. The right common femoral artery was cannulated using Seldinger technique, the guidewire passed easily, following that we advanced a 6 Danish sheath dilator assembly, the wire and dilator were removed and sheath was flushed. Selective right and left coronary angiogram using a 6-Danish JR4 and JL catheters. The TINOCO to LAD angiogram was performed using the JR4 catheter. The SVG to LCx angiogram was performed also using the JR4 catheter. The SVG to RCA angiogram was performed using Jairo right catheter. Because I had difficulties crossing the wire in the right iliac artery I did pulled back across the right iliac artery. That was performed using a 23 cm sheath. The gradient across the iliac artery was about 36 mmHg The procedure was completed there was no complication. SELECTIVE CORONARY ANGIOGRAM: The right coronary artery: Large caliber vessel. Its occluded in the midportion. Left main: Has mild to moderate disease in the distal portion. The left circumflex: Is occluded in the proximal portion after a small OM branch The left anterior descending artery: Large caliber vessel. The LAD in the midportion has a critical lesion appeared to be in the range of 99.9%. This is just proximal to the TINOCO anastomosis. There is a large diagonal branch comes just proximal to the TINOCO anastomosis was identified. Competitive flow was seen in the LAD. Coronary bypasses angiogram The TINOCO to LAD is patent The SVG to LCx is patent The SVG to RCA is patent CONCLUSION: 1. Severe triple-vessel CAD. Patent TINOCO to LAD. Patent SVG to LCx. Patent SVG to RCA 2. Critical disease involving the LAD in the midportion just before the bifurcation of the large diagonal branch which appears to be unprotected 3. Severe disease involving the right iliac artery documented by gradient measurement. The gradient was 36 mmHg POSTPROCEDURE MANAGEMENT: Consider medical treatment at this point. Consider adding Plavix to the current medical regimen Follow-up with the patient
--- NOTE | 2022-12-27 11:40 | P.PN ---
Subjective Progress Note Date: 12/27/22 Hospital Course: 67-year-old female with history of CAD status post CABG, valvular heart disease, rheumatoid arthritis, history of CVA, COPD, hypertension, dyslipidemia, recent left knee surgery on IV antibiotics, presented with chest pain. In the ED, temperature was 98.9, pulse 110, blood pressure 168/77, saturating at 91% on room air. Laboratory workup showed WBC 6.6, hemoglobin 9.8, potassium 3.3, bicarb 19, glucose 120, troponin 0.086. EKG independently interpreted shows possible inferior and septal ST depressions. Patient started on heparin drip, cardiology consulted. Echocardiogram report reviewed, shows normal LV size and systolic function with EF 55%, no obvious regional wall motion abnormalities, moderate MR, moderate mitral stenosis. Pending cardiac cath today. Subjective: Patient seen and examined at bedside. No acute events overnight. Denies any further chest pain. Pertinent positives and negatives as discussed above, a complete review of systems was performed and all other systems are negative. Vitals Signs Reviewed. General: nontoxic, no distress, appears at stated age Derm: warm, dry, left knee wound VAC in place, PICC line in place Head: atraumatic, normocephalic, symmetric Eyes: EOMI, no lid lag, anicteric sclera, pupils equal round reactive to light ENT: Nose and ears atraumatic Neck: No thyromegaly, supple Mouth: no lip lesion, mucus membranes moist Cardiovascular: S1S2 reg, no murmur, no edema Lungs: clear to auscultation bilateral, no rhonchi, no rales, no wheeze, no accessory muscle use Abdominal: soft, nontender to palpation, no guarding, no appreciable organomegaly Ext: no gross muscle atrophy, muscle strength muscle strength 5 out of 5 in all 4 extremities, no contractures Neuro: CN II-XII grossly intact Psych: Alert, oriented, appropriate affect Data Reviewed Today: Pertinent Labs: Hemoglobin 8.4, platelet 275, APTT 39.2, bicarb 21, creatinine 1 Imaging: No new imaging Assessment and Plan: Active: NSTEMI History of CAD status post CABG Valvular heart disease -Pending cardiac cath today -Continue heparin drip, aspirin, statin -Cardiology following, awaiting further recommendations Recent left knee septic arthritis -Has a wound VAC in place -Continue IV vancomycin 1 g IV every 16 hours, monitor for renal toxicity -PICC line in place Chronic: Rheumatoid arthritis Hypertension Dyslipidemia DVT ppx: Heparin drip Code status: Full code Anticipated discharge place: Pending clinical course Anticipated discharge time: Pending clinical course Objective - Vital Signs Vital signs: Vital Signs Temp 98.5 F 12/27/22 07:26 Pulse 67 12/27/22 07:26 Resp 18 12/27/22 07:26 BP 165/78 12/27/22 07:26 Pulse Ox 98 12/27/22 07:55 FiO2 Intake & Output 12/26/22 12/27/22 12/27/22 18:59 06:59 18:59 Intake Total 169 320 300 Output Total 300 1200 Balance -131 -880 300 Intake: IV 20 20 300 Invasive Line 2 20 20 Intake, IV Titration 149 Amount Heparin Sod,Pork in 0.45% 149 NaCl 25,000 unit In 0.45 % NaCl 1 250ml.bag @ 12 UNITS/KG/HR 5.987 mls/hr IV .Q24H [facility] Rx#: [id number] Oral 300 Output: Urine 300 1200 Other: Voiding Method External Catheter External Catheter External Catheter # Voids 2 - Labs CBC & Chem 7: 12/27/22 07:26 12/27/22 07:26 Labs: Abnormal Lab Results - Last 24 Hours (Table) 12/27/22 12/27/22 12/27/22 Range/Units 07:26 07:26 07:26 RBC 3.04 L (3.80-5.40) m/uL Hgb 8.4 L (11.4-16.0) gm/dL Hct 27.0 L (34.0-46.0) % RDW 17.9 H (11.5-15.5) % APTT 39.2 H (22.0-30.0) sec Chloride 112 H (98-107) mmol/L Carbon Dioxide 21 L (22-30) mmol/L BUN 18 H (7-17) mg/dL
[2022-12-27] MEDS ORDERED: SODIUM CHLORIDE 0.9% 1,000 ML IV SCH (11:45)
[2022-12-27 15:20] VITALS: BMI 22.2
[2022-12-27] MEDS: traZODone HCL 50 MG TAB PO SCH (21:37)
[2022-12-27] MEDS: ATORVASTATIN 80 MG TAB PO SCH (21:37)
[2022-12-28] MEDS: NITROGLYCERIN OINT 1 INCH/GM PACKET TOPICAL SCH ×3 (00:02→13:03)
[2022-12-28] MEDS: PANTOPRAZOLE 40 MG TABLET PO SCH (06:43)
[2022-12-28] MEDS ORDERED: HEPARIN SODIUM,PORCINE (1 ML) 2,500 UNIT in SODIUM CHLORIDE 0.9% 250 ML IRRIGATION PRN (07:00)
[2022-12-28] MEDS ORDERED: HEPARIN SODIUM,PORCINE 10,000 UNIT in SODIUM CHLORIDE 0.9% 1,000 ML IRRIGATION PRN (07:00)
[2022-12-28] MEDS ORDERED: VANCOMYCIN TROUGH DUE 1 EACH MISC MISCELLANE ONE (07:00)
[2022-12-28 08:57] LABS: Anisocytosis Slight; Basophils % (A) 0 %; Eosinophils # (A) 0.2 k/uL (0-0.7); Eosinophils % (A) 4 %; HCT 28.1 % (34.0-46.0); HGB 8.8 gm/dL (11.4-16.0); Hypochromasia Marked; Lymphocytes # (A) 1.2 k/uL (1.0-4.8); Lymphocytes % (A) 23 %; MCH 27.9 pg (25.0-35.0); MCHC 31.5 g/dL (31.0-37.0); MCV 88.5 fL (80.0-100.0); Mean Platelet Volume 7.1; Monocytes # (A) 0.3 k/uL (0-1.0); Monocytes % (A) 6 %; Neutrophils # (A) 3.7 k/uL (1.3-7.7); Neutrophils % (A) 67 %; Platelet Count 292 k/uL (150-450); RBC 3.17 m/uL (3.80-5.40); WBC 5.5 k/uL (3.8-10.6)
[2022-12-28 09:02] LABS: African American GFR (CKD) 80 (>60 ml/min/1.73 sqM); Anion Gap 11 mmol/L; Blood Urea Nitrogen 16 mg/dL (7-17); Calcium 8.6 mg/dL (8.4-10.2); Carbon Dioxide 16 mmol/L (22-30); Chloride 112 mmol/L (98-107); Glucose 121 mg/dL (74-99); Magnesium 1.5 mg/dL (1.6-2.3); Non-African American GFR(CKD) 70 (>60 ml/min/1.73 sqM); Potassium 3.7 mmol/L (3.5-5.1); Sodium 139 mmol/L (137-145)
[2022-12-28] MEDS: HYDROXYCHLOROQUINE SULFATE 200 MG TAB PO SCH (09:18)
[2022-12-28] MEDS: METOPROLOL TARTRATE 50 MG TAB PO SCH (09:18)
[2022-12-28] MEDS: CHOLECALCIFEROL 25 MCG (1000 IU) TABLET PO SCH (09:18)
[2022-12-28] MEDS: ASPIRIN 81 MG PO SCH (09:18)
[2022-12-28] MEDS: ISOSORBIDE MONONITRATE ER 30 MG TAB.ER.24H PO SCH (09:18)
[2022-12-28] MEDS: ASCORBIC ACID 500 MG TAB PO SCH (09:18)
[2022-12-28] MEDS: FUROSEMIDE 20 MG TAB PO SCH (09:18)
[2022-12-28] MEDS: HYDROcodone/APAP 7.5-325MG 1 EACH TAB PO PRN (09:19)
[2022-12-28] MEDS: CITALOPRAM HYDROBROMIDE 20 MG TAB PO SCH (09:19)
[2022-12-28] MEDS: lisinopriL 5 MG TAB PO SCH (09:19)
[2022-12-28] MEDS: VANCOMYCIN 1,000 MG in SODIUM CHLORIDE 0.9% 250 ML IVPB SCH (09:20)
[2022-12-28] MEDS: NYSTATIN 100,000UNIT/GM CREAM 30 GM TUBE TOPICAL SCH (09:26)
[2022-12-28] MEDS: HEPARIN SOD,PORK IN 0.45% NACL 25,000 UNIT in 0.45% NACL 1 250ML.BAG IV SCH (09:27)
[2022-12-28] MEDS ORDERED: CLOPIDOGREL 75 MG TAB PO SCH (11:15)
[2022-12-28 12:59] VITALS: RESP 18
--- NOTE | 2022-12-28 13:16 | P.DS ---
Providers Date of admission: 12/25/22 09:17 Expected date of discharge: 12/28/22 Attending physician: Fran Gomez MD Consults: 12/25/22 09:17 Consult Physician Urgent Consulting Provider: [facility] Consult Reason/Comments: Chest pain Do you want consulting provider notified?: Yes Primary care physician: Olivier Trinidad Hospital Course: Discharge Diagnosis: NSTEMI History of CAD status post CABG Valvular heart disease Recent left knee septic arthritis on IV antibiotics Rheumatoid arthritis Hypertension Dyslipidemia Hospital Course: 67-year-old female with history of CAD status post CABG, valvular heart disease, rheumatoid arthritis, history of CVA, COPD, hypertension, dyslipidemia, recent left knee surgery on IV antibiotics, presented with chest pain. In the ED, temperature was 98.9, pulse 110, blood pressure 168/77, saturating at 91% on room air. Laboratory workup showed WBC 6.6, hemoglobin 9.8, potassium 3.3, bicarb 19, glucose 120, troponin 0.086. EKG showed possible inferior and septal ST depressions. Patient started on heparin drip, cardiology consulted. Echocardiogram shows normal LV size and systolic function with EF 55%, no obvious regional wall motion abnormalities, moderate MR, moderate mitral stenosis. Cardiac cath showed severe triple-vessel CAD with patent TINOCO to LAD, patent SVG to left circumflex, patent SVG to RCA, critical disease involving LAD midportion, severe disease involving right iliac artery. Patient also started on Plavix. She will follow-up with cardiology and her orthopedic surgeon. Patient seen and examined at bedside. Vital signs reviewed and stable. General: nontoxic, no distress, appears at stated age Derm: warm, dry, left knee wound VAC in place, PICC line in place Head: atraumatic, normocephalic, symmetric Eyes: EOMI, no lid lag, anicteric sclera, pupils equal round reactive to light ENT: Nose and ears atraumatic Neck: No thyromegaly, supple Mouth: no lip lesion, mucus membranes moist Cardiovascular: S1S2 reg, no murmur, no edema Lungs: clear to auscultation bilateral, no rhonchi, no rales, no wheeze, no accessory muscle use Abdominal: soft, nontender to palpation, no guarding, no appreciable organomegaly Ext: no gross muscle atrophy, muscle strength muscle strength 5 out of 5 in all 4 extremities, no contractures Neuro: CN II-XII grossly intact Psych: Alert, oriented, appropriate affect A total of 36 minutes of time were spent preparing this complex discharge summary. Patient was discharged on 12/28/22 at 13:12. Patient Condition at Discharge: Stable Plan - Discharge Summary Discharge Rx Participant: Yes New Discharge Prescriptions: New Clopidogrel [Plavix] 75 mg PO DAILY #60 tab Magnesium Oxide [Mag-Ox] 400 mg PO DAILY #60 tablet Continue Isosorbide Mononitrate [Imdur] 30 mg PO DAILY Metoprolol Tartrate [Lopressor] 50 mg PO BID Omeprazole 20 mg PO DAILY traZODone HCL 50 mg PO HS Albuterol Nebulized [Ventolin Nebulized] 2.5 mg INHALATION RT-QID PRN PRN Reason: Shortness Of Breath Ascorbic Acid [Vitamin C] 1,000 mg PO DAILY Furosemide [Lasix] 20 mg PO DAILY #30 tab Aspirin EC [Ecotrin] 325 mg PO DAILY lisinopriL [Zestril] 5 mg PO DAILY Vancomycin 1,000 mg IV DAILY Hydroxychloroquine Sulfate [Plaquenil] 200 mg PO BID Diclofenac Sodium [Voltaren Arthritis Pain 1% Gel] 1 gm TOPICAL QID PRN PRN Reason: Pain Sennosides [Senokot] 8.6 mg PO BID PRN PRN Reason: Constipation Vitamin D3(Unknown Dose) 1 tab PO DAILY Atorvastatin [Lipitor] 80 mg PO HS Citalopram Hydrobromide [CeleXA] 40 mg PO DAILY HYDROcodone/APAP 7.5-325MG [[place] 7.5-325] 1 tab PO Q4H PRN PRN Reason: Pain Discharge Medication List Isosorbide Mononitrate [Imdur] 30 mg PO DAILY 11/22/13 [History] Metoprolol Tartrate [Lopressor] 50 mg PO BID 01/19/17 [History] Omeprazole 20 mg PO DAILY 01/19/17 [History] traZODone HCL 50 mg PO HS 02/26/19 [History] Hydroxychloroquine Sulfate [Plaquenil] 200 mg PO BID 10/09/22 [History] Albuterol Nebulized [Ventolin Nebulized] 2.5 mg INHALATION RT-QID PRN 11/17/22 [History] Ascorbic Acid [Vitamin C] 1,000 mg PO DAILY 11/17/22 [History] Diclofenac Sodium [Voltaren Arthritis Pain 1% Gel] 1 gm TOPICAL QID PRN 11/17/22 [History] Sennosides [Senokot] 8.6 mg PO BID PRN 11/17/22 [History] Furosemide [Lasix] 20 mg PO DAILY #30 tab 11/23/22 [Rx] Aspirin EC [Ecotrin] 325 mg PO DAILY 12/25/22 [History] Atorvastatin [Lipitor] 80 mg PO HS 12/25/22 [History] Citalopram Hydrobromide [CeleXA] 40 mg PO DAILY 12/25/22 [History] HYDROcodone/APAP 7.5-325MG [[place] 7.5-325] 1 tab PO Q4H PRN 12/25/22 [History] Vancomycin 1,000 mg IV DAILY 12/25/22 [History] Vitamin D3(Unknown Dose) 1 tab PO DAILY 12/25/22 [History] lisinopriL [Zestril] 5 mg PO DAILY 12/25/22 [History] Clopidogrel [Plavix] 75 mg PO DAILY #60 tab 12/28/22 [Rx] Magnesium Oxide [Mag-Ox] 400 mg PO DAILY #60 tablet 12/28/22 [Rx] Follow up Appointment(s)/Referral(s): Gabo Simental MD [STAFF PHYSICIAN] - 1 Week Olivier Trinidad DO [Primary Care Provider] - 1-2 days Patient Instructions/Handouts: Heart Attack (DC), Heart Healthy Diet (DC) Activity/Diet/Wound Care/Special Instructions: Please see your control equipment electrician and your orthopedic surgeon. Discharge Disposition: HOME WITH HOME HEALTH SERVICES
[2022-12-28 13:18] VITALS: BP 138/61; PULSE 60; TEMP 98.7
--- NOTE | 2022-12-28 13:31 | P.PN ---
Subjective Progress Note Date: 12/28/22 HISTORY OF PRESENTING ILLNESS Patient is a 67-year-old known to Dr. Simental. She has a past medical history of CAD status post CABG 2008 with TINOCO to LAD, stenting of LAD distal to TINOCO anastomosis, SVG to LCx, SVG to RCA, PAD, valvular heart disease with moderate aortic stenosis and moderate aortic regurgitation, hypertension dyslipidemia carotid atherosclerosis, history of smoking. She presented to the hospital because of substernal chest pain and chest pressure. She is also been feeling significantly weak lately On this admission she had mild elevation of troponin. Initial was 0.01, repeat 0.08. ECG shows sinus tachycardia with LVH and nonspecific ST changes in lateral leads Progress Note Date: 12/26/22 Progress note: Patient denies any further active chest pains last 24 hours. Her echocardiogram showed a preserved LV systolic function with moderate aortic stenosis and moderate mitral regurgitation. 12/27 Yesterday, patient underwent cardiac catheterization with Dr. Simental that revealed severe triple-vessel coronary artery disease. Patent TINOCO to LAD. Patent SVG to left circumflex. Patent SVG to RCA. Critical disease involving the LAD in the midportion just before the bifurcation of the large diagonal branch which appears to be unprotected. Severe disease involving the right iliac artery with gradient 36 mmHg. Plan is for medical management. Blood pressure 138 267 systolic, pulse ox 97% on room air, heart rate in the 60s. Hemoglobin 8.8. Creatinine 0.88. PHYSICAL EXAMINATION Vital signs reviewed. Head: Normocephalic. Eyes: Sclerae nonicteric. Neck: Brisk carotid upstroke, no jugular venous distention. Lungs: Clear to auscultation. Heart: Regular rate and rhythm, loud systolic murmur Abdomen: Soft nontender, positive bowel sounds no organomegaly. Extremities: Poor pulses in distal extremities. Wound VAC on left knee Neuro: Alert, oritented, no focal deficits Last echo from 11/18/2022 shows EF 55%, moderate aortic stenosis, [id number] mitral regurgitation ASSESSMENT NSTEMI CAD status post PCI to LAD distal to TINOCO anastomosis Status post CABG with TINOCO to LAD, SVG to OM and PDA Advanced COPD Prior tobacco smoker Severe peripheral artery disease with carotid disease Moderate aortic stenosis and moderate mitral regurgitation PLAN Continue Aspirin 81 mg, atorvastatin 80 mg, Imdur 30 mg, lisinopril 5 mg, metoprolol 50 milligrams twice a day Lasix 20 mg Start Patient on Plavix 75 mg daily and discontinue aspirin Patient to follow-up in the office with Dr. Simental in 1 week. Patient is cleared for discharge from cardiology. Impression and plan of care have been directed as dictated by the signing physician. Kim Mcnamara nurse practitioner acting as scribe for signing physician. Objective - Vital Signs Vital signs: Vital Signs Temp 98.6 F 12/27/22 23:55 Pulse 67 12/28/22 03:54 Resp 17 12/28/22 03:54 BP 167/79 12/28/22 03:54 Pulse Ox 96 12/28/22 03:54 FiO2 Intake & Output 12/27/22 12/28/22 12/28/22 18:59 06:59 18:59 Intake Total 568 118 Output Total 400 550 Balance 168 -550 118 Weight 49.895 kg Intake: IV 300 Intake, IV Titration 150 Amount Sodium Chloride 0.9% 1, 150 000 ml @ 75 mls/hr IV . [id number] Rx#:[id number] Oral 118 118 Output: Urine 400 550 Other: Voiding Method External Catheter External Catheter # Voids 2 - Labs CBC & Chem 7: 12/28/22 08:31 12/28/22 08:31 Labs: Abnormal Lab Results - Last 24 Hours (Table) 12/28/22 12/28/22 Range/Units 08:31 08:31 RBC 3.17 L (3.80-5.40) m/uL Hgb 8.8 L (11.4-16.0) gm/dL Hct 28.1 L (34.0-46.0) % RDW 18.0 H (11.5-15.5) % Chloride 112 H (98-107) mmol/L Carbon Dioxide 16 L (22-30) mmol/L Glucose 121 H (74-99) mg/dL Magnesium 1.5 L (1.6-2.3) mg/dL
[2022-12-29] MEDS ORDERED: VANCOMYCIN 1,000 MG in SODIUM CHLORIDE 0.9% 250 ML IVPB SCH (09:00)
== END 2022-12-28 15:50 | disposition home health service (06) | DRG 282 ==
LOC: EC 07:23 → 6NMEDSUR 09:17 → 3SCARD 15:17
PROVIDERS: ADMIT Student in an Organized Health Care Education/Training Program; ATTEND Student in an Organized Health Care Education/Training Program
PROC: B2111ZZ Fluoroscopy of Multiple Coronary Arteries using Low Osmolar Contrast (ICD-10-PCS; principal; 2022-12-28)
PROC: B2131ZZ Fluoroscopy of Multiple Coronary Artery Bypass Grafts using Low Osmolar Contrast (ICD-10-PCS; 2022-12-28)
PROC: B2181ZZ Fluoroscopy of Left Internal Mammary Bypass Graft using Low Osmolar Contrast (ICD-10-PCS; 2022-12-28)
PROC: B41F1ZZ Fluoroscopy of Right Lower Extremity Arteries using Low Osmolar Contrast (ICD-10-PCS; 2022-12-28)
DX: I21.4 Non-ST elevation (NSTEMI) myocardial infarction (principal); E78.00 Pure hypercholesterolemia, unspecified; Z95.1 Presence of aortocoronary bypass graft; M06.9 Rheumatoid arthritis, unspecified; I10 Essential (primary) hypertension; F32.A Depression, unspecified; I08.0 Rheumatic disorders of both mitral and aortic valves; E78.5 Hyperlipidemia, unspecified; I25.10 Atherosclerotic heart disease of native coronary artery without angina pectoris; F41.9 Anxiety disorder, unspecified; G89.29 Other chronic pain; I25.110 Atherosclerotic heart disease of native coronary artery with unstable angina pectoris; J44.9 Chronic obstructive pulmonary disease, unspecified; M41.9 Scoliosis, unspecified; Z85.41 Personal history of malignant neoplasm of cervix uteri; Z86.73 Personal history of transient ischemic attack (TIA), and cerebral infarction without residual deficits; Z87.11 Personal history of peptic ulcer disease; Z95.5 Presence of coronary angioplasty implant and graft; Z88.5 Allergy status to narcotic agent; Z90.49 Acquired absence of other specified parts of digestive tract; Z98.49 Cataract extraction status, unspecified eye; Z86.14 Personal history of Methicillin resistant Staphylococcus aureus infection
CPT/HCPCS: 36415; 51702; 71046; 76937; 80048; 80053; 80061; 80202; 83735; 84145; 84484; 85025; 85610; 85730; 93005; 93308; 93459; 94760; 96365; 96366; 96368; 99291

== ENCOUNTER 2023-01-08 17:52 | Emergency (ER) | payer MEDICARE, OTHER ==
[2023-01-08 18:05] VITALS: RESP 18; TEMP 99
[2023-01-08] MEDS ORDERED: LIDOCAINE 1% INJ 10MG/ML (20 ML MDV) SQ ONE (18:15)
--- NOTE | 2023-01-08 18:15 | ED ---
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 Patient states that her arm got snagged earlier and at this time patient reports that she broke a stitch of the PICC line and is worried that is not in the correct place any more. No other injuries occurring at this time. No other complaints. Denies fever. - Related Data Home Medications Medication Instructions Recorded Confirmed Isosorbide Mononitrate [Imdur] 30 mg PO DAILY 11/22/13 12/25/22 Metoprolol Tartrate [Lopressor] 50 mg PO BID 01/19/17 12/25/22 Omeprazole 20 mg PO DAILY 01/19/17 12/25/22 traZODone HCL 50 mg PO HS 02/26/19 12/25/22 Hydroxychloroquine Sulfate 200 mg PO BID 10/09/22 12/25/22 [Plaquenil] Albuterol Nebulized [Ventolin 2.5 mg INHALATION RT-QID PRN 11/17/22 12/25/22 Nebulized] Ascorbic Acid [Vitamin C] 1,000 mg PO DAILY 11/17/22 12/25/22 Diclofenac Sodium [Voltaren 1 gm TOPICAL QID PRN 11/17/22 12/25/22 Arthritis Pain 1% Gel] Sennosides [Senokot] 8.6 mg PO BID PRN 11/17/22 12/25/22 Atorvastatin [Lipitor] 80 mg PO HS 12/25/22 12/25/22 Citalopram Hydrobromide [CeleXA] 40 mg PO DAILY 12/25/22 12/25/22 HYDROcodone/APAP 7.5-325MG [[place] 1 tab PO Q4H PRN 12/25/22 12/25/22 7.5-325] Vancomycin 1,000 mg IV DAILY 12/25/22 12/27/22 Vitamin D3(Unknown Dose) 1 tab PO DAILY 12/25/22 12/25/22 lisinopriL [Zestril] 5 mg PO DAILY 12/25/22 12/25/22 Previous Rx's Medication Instructions Recorded Furosemide [Lasix] 20 mg PO DAILY #30 tab 11/23/22 Clopidogrel [Plavix] 75 mg PO DAILY #60 tab 12/28/22 Magnesium Oxide [Mag-Ox] 400 mg PO DAILY #60 tablet 12/28/22 Allergies Allergy/AdvReac Type Severity Reaction Status Date / Time codeine AdvReac Nausea & Verified 12/25/22 07:42 Vomiting Review of Systems ROS Statement: Those systems with pertinent positive or pertinent negative responses have been documented in the HPI. ROS Other: All systems not noted in ROS Statement are negative. Past Medical History Past Medical History: Coronary Artery Disease (CAD), Cancer, Chest Pain / Angina, COPD, CVA/TIA, GERD/Reflux, Hyperlipidemia, Hypertension, Osteoarthritis (OA), Rheumatoid Arthritis (RA), Skin Disorder, Vascular Disorder Additional Past Medical History / Comment(s): chronic back pain., scoliosis., heart murmur, SOB w/activity, hx of gastric ulcer, cervical cancer, eczema, TIA-no residuals., frequent diarrhea., hepatitis C with tx,hamlet cataracts, left knee replaced recently-not healing well per pt, lot of pain, recent cataract surg. History of Any Multi-Drug Resistant Organisms: MRSA Date of last positivie culture/infection: 12/11/22 MDRO Source:: Left Knee/Blood Past Surgical History: Section, Cholecystectomy, Coronary Bypass/CABG, Heart Catheterization, Heart Catheterization With Stent, Joint Replacement, Orthopedic Surgery, Tubal Ligation Additional Past Surgical History / Comment(s): triple CABG 2008, ORIF right leg, ., heart cath with stent 2013(Mph)., heart cath no stent (2019). left knee replaced 03-15-22, tip fib screws Past Anesthesia/Blood Transfusion Reactions: No Reported Reaction Date of Last Stent Placement:: 2013 Past Psychological History: Anxiety, Depression Smoking Status: Former smoker Past Alcohol Use History: None Reported Past Drug Use History: None Reported - Past Family History Father Family Medical History: Cancer, Dementia Additional Family Medical History / Comment(s): AT AGE 84-LUNG CANCER. Mother Family Medical History: Coronary Artery Disease (CAD) Additional Family Medical History / Comment(s): AT AGE 73. Brother(s) Family Medical History: Cancer General Exam Limitations: no limitations General appearance: alert, in no apparent distress ENT exam: Present: normal exam Neck exam: Present: normal inspection Respiratory exam: Present: normal lung sounds bilaterally Cardiovascular Exam: Present: regular rate, normal rhythm GI/Abdominal exam: Present: soft Extremities exam: Present: other (PICC line in left upper extremity with one ruptured suture without any covering. Calvert sensation intact. No surrounding warmth, erythema, tenderness to palpation, edema.) Course Vital Signs 01/08/23 01/08/23 17:55 18:59 Temperature 99 F Pulse Rate 79 83 Respiratory 18 18 Rate Blood Pressure 150/71 169/65 O2 Sat by Pulse 98 98 Oximetry Procedures - Procedures Initial comment: PICC line examined. Patient had successful blood draw with heparin flush. Line intact. Was resecured with suture and PICC line covering. Performed in sterile fashion. Patient tolerated well with no complications. Medical Decision Making - Medical Decision Making Was pt. sent in by a medical professional or institution (, PA, DIRECTOR OF HOTEL, urgent care, hospital, or correction...) When possible be specific @ -No Did you speak to anyone other than the patient for history (EMS, parent, family, police, friend...)? What history was obtained from this source @ -No Did you review nursing and triage notes (agree or disagree)? Why? @ -I reviewed and agree with nursing and triage notes Were old charts reviewed (outside hosp., previous admission, EMS record, old EKG, old radiological studies, urgent care reports/EKG's, correction records)? Report findings @ -Prior records reviewed further details please see HPI. Differential Diagnosis (chest pain, altered mental status, abdominal pain women, abdominal pain men, vaginal bleeding, weakness, fever, dyspnea, syncope, headache, dizziness, GI bleed, back pain, seizure, CVA, palpatations, mental health, musculoskeletal)? @ -not applicable EKG interpreted by me (3pts min.). @ -As above X-rays interpreted by me (1pt min.). @ -None done CT interpreted by me (1pt min.). @ -None done U/S interpreted by me (1pt. min.). @ -None done What testing was considered but not performed or refused? (CT, X-rays, U/S, labs)? Why? @ -None What meds were considered but not given or refused? Why? @ -None Did you discuss the management of the patient with other professionals (professionals i.e. , PA, DIRECTOR OF HOTEL, lab, RT, psych nurse, long term care social worker, bell spinner sousaphones, teacher, radio officer, foster care case manager)? Give summary @ -No Was smoking cessation discussed for >3mins.? @ -No Was critical care preformed (if so, how long)? @ -No Were there social determinants of health that impacted care today? How? (Homelessness, low income, unemployed, alcoholism, drug addiction, transportation, low edu. Level, literacy, decrease access to med. care, usp, rehab)? @ -No Was there de-escalation of care discussed even if they declined (Discuss DNR or withdrawal of care, Hospice)? DNR status @ -No What co-morbidities impacted this encounter? (DM, HTN, Smoking, COPD, CAD, Cancer, CVA, ARF, Chemo, Hep., AIDS, mental health diagnosis, sleep apnea, morbid obesity)? @ -Septic arthritis of the knee Was patient admitted / discharged? Hospital course, mention meds given and route, prescriptions, significant lab abnormalities, going to OR and other pertinent info. @ -Discharge 67-year-old female with a history significant for a recurrent septic arthritis of the knee with a PICC line presents to the ED with concerns about her PICC line. The patient states that she was having trouble holding down the IV at the end of her PICC line and therefore used tape to tape it down. States that when she tore off the tape she ripped off the covering that was on the PICC line and also tore a stitch out. Patient presenting due to concern that PICC line has been in out of place. Blood drawn successfully from this line also had successful heparin flush. PICC line secured. For further details please see procedure note. Patient discharged home in stable condition. Advised follow-up as scheduled with cardiology, infectious disease, orthopedics. Discussed return precautions with patient who verbalizes agreement. Undiagnosed new problem with uncertain prognosis? @ -No Drug Therapy requiring intensive monitoring for toxicity (Heparin, Nitro, Insulin, Cardizem)? @ -No Were any procedures done? @ -No Diagnosis/symptom? @ -PICC line check Acute, or Chronic, or Acute on Chronic? @ -Acute Uncomplicated (without systemic symptoms) or Complicated (systemic symptoms)? @ -Uncomplicated Side effects of treatment? @ -No Exacerbation, Progression, or Severe Exacerbation? @ -No Poses a threat to life or bodily function? How? (Chest pain, [place], [place], pneumonia, PE, COPD, DKA, ARF, appy, cholecystitis, CVA, Diverticulitis, Homicidal, Suicidal, threat to staff... and all critical care pts) @ -No Disposition Clinical Impression: Status post PICC central line placement Disposition: HOME SELF-CARE Condition: Good Additional Instructions: Please return to the Emergency Department if symptoms worsen or any other concerns. Is patient prescribed a controlled substance at d/c from ED?: No Referrals: None,Stated [Primary Care Provider] - 1-2 days Time of Disposition: 19:46
[2023-01-08] MEDS ORDERED: HYDROcodone/APAP 5-325MG 1 EACH TAB PO STA (18:52)
[2023-01-08 19:25] VITALS: BP 169/65
[2023-01-08 19:45] VITALS: PULSE 83
== END 2023-01-08 20:03 | disposition home or self-care (01) ==
LOC: EC 17:52
DX: Z45.2 Encounter for adjustment and management of vascular access device (principal); E78.5 Hyperlipidemia, unspecified; I10 Essential (primary) hypertension; I25.10 Atherosclerotic heart disease of native coronary artery without angina pectoris; J44.9 Chronic obstructive pulmonary disease, unspecified; K21.9 Gastro-esophageal reflux disease without esophagitis; M06.9 Rheumatoid arthritis, unspecified; F41.9 Anxiety disorder, unspecified; F32.A Depression, unspecified; Z86.73 Personal history of transient ischemic attack (TIA), and cerebral infarction without residual deficits; Z87.891 Personal history of nicotine dependence; Z88.5 Allergy status to narcotic agent; Z79.02 Long term (current) use of antithrombotics/antiplatelets; Z79.899 Other long term (current) drug therapy
CPT/HCPCS: 99284; J2001

== ENCOUNTER 2023-01-11 12:34 | Emergency (ER) | payer MEDICARE, OTHER ==
[2023-01-11] MEDS ORDERED: SODIUM CHLORIDE 0.9% 500 ML 500 ML IV STA (12:44)
--- NOTE | 2023-01-11 13:12 | ED ---
General Adult HPI - General Chief complaint: Recheck/Abnormal Lab/Rx Stated complaint: Abn Labs Time Seen by Provider: 01/11/23 12:45 Source: patient, EMS, RN notes reviewed, old records reviewed Mode of arrival: EMS Limitations: no limitations - History of Present Illness Initial comments: This is a 67-year-old female who presents emergency Department because of low hemoglobin. Patient states she does have high blood pressure high cholesterol. Patient states she also has a recent infection after surgery and she was told it was MRSA. Patient was at Dr. Real's office and he did hemoglobin and it was 5.2 so they sent her into the emergency department. Patient states she has been feeling extremely weak lately but she denies shortness of breath chest pain or palpitations. Patient denies any bright red blood from her rectum but she has noted some dark stools. Patient denies any abdominal pain. Patient denies a history of anemia - Related Data Home Medications Medication Instructions Recorded Confirmed Isosorbide Mononitrate [Imdur] 30 mg PO DAILY 11/22/13 12/25/22 Metoprolol Tartrate [Lopressor] 50 mg PO BID 01/19/17 12/25/22 Omeprazole 20 mg PO DAILY 01/19/17 12/25/22 traZODone HCL 50 mg PO HS 02/26/19 12/25/22 Hydroxychloroquine Sulfate 200 mg PO BID 10/09/22 12/25/22 [Plaquenil] Albuterol Nebulized [Ventolin 2.5 mg INHALATION RT-QID PRN 11/17/22 12/25/22 Nebulized] Ascorbic Acid [Vitamin C] 1,000 mg PO DAILY 11/17/22 12/25/22 Diclofenac Sodium [Voltaren 1 gm TOPICAL QID PRN 11/17/22 12/25/22 Arthritis Pain 1% Gel] Sennosides [Senokot] 8.6 mg PO BID PRN 11/17/22 12/25/22 Atorvastatin [Lipitor] 80 mg PO HS 12/25/22 12/25/22 Citalopram Hydrobromide [CeleXA] 40 mg PO DAILY 12/25/22 12/25/22 HYDROcodone/APAP 7.5-325MG [Idamay 1 tab PO Q4H PRN 12/25/22 12/25/22 7.5-325] Vancomycin 1,000 mg IV DAILY 12/25/22 12/27/22 Vitamin D3(Unknown Dose) 1 tab PO DAILY 12/25/22 12/25/22 lisinopriL [Zestril] 5 mg PO DAILY 12/25/22 12/25/22 Previous Rx's Medication Instructions Recorded Furosemide [Lasix] 20 mg PO DAILY #30 tab 11/23/22 Clopidogrel [Plavix] 75 mg PO DAILY #60 tab 12/28/22 Magnesium Oxide [Mag-Ox] 400 mg PO DAILY #60 tablet 12/28/22 Allergies Allergy/AdvReac Type Severity Reaction Status Date / Time codeine AdvReac Nausea & Verified 01/11/23 12:47 Vomiting Review of Systems ROS Statement: Those systems with pertinent positive or pertinent negative responses have been documented in the HPI. ROS Other: All systems not noted in ROS Statement are negative. Past Medical History Past Medical History: Coronary Artery Disease (CAD), Cancer, Chest Pain / Angina, COPD, CVA/TIA, GERD/Reflux, Hyperlipidemia, Hypertension, Osteoarthritis (OA), Rheumatoid Arthritis (RA), Skin Disorder, Vascular Disorder Additional Past Medical History / Comment(s): chronic back pain., scoliosis., heart murmur, SOB w/activity, hx of gastric ulcer, cervical cancer, eczema, TIA-no residuals., frequent diarrhea., hepatitis C with tx,hamlet cataracts, left knee replaced recently-not healing well per pt, lot of pain, recent cataract surg. History of Any Multi-Drug Resistant Organisms: MRSA Date of last positivie culture/infection: 12/11/22 MDRO Source:: Left Knee/Blood Past Surgical History: Section, Cholecystectomy, Coronary Bypass/CABG, Heart Catheterization, Heart Catheterization With Stent, Joint Replacement, Orthopedic Surgery, Tubal Ligation Additional Past Surgical History / Comment(s): triple CABG 2008, ORIF right leg, ., heart cath with stent 2013(Mph)., heart cath no stent (2019). left knee replaced 03-15-22, tip fib screws Past Anesthesia/Blood Transfusion Reactions: No Reported Reaction Date of Last Stent Placement:: 2013 Past Psychological History: Anxiety, Depression Smoking Status: Former smoker Past Alcohol Use History: None Reported Past Drug Use History: None Reported - Past Family History Father Family Medical History: Cancer, Dementia Additional Family Medical History / Comment(s): AT AGE 84-LUNG CANCER. Mother Family Medical History: Coronary Artery Disease (CAD) Additional Family Medical History / Comment(s): AT AGE 73. Brother(s) Family Medical History: Cancer General Exam - General Exam Comments Initial Comments: GENERAL: Patient is well-developed and well-nourished. Patient is nontoxic and well- hydrated and is in mild distress. ENT: Neck is soft and supple. No significant lymphadenopathy is noted. Oropharynx is clear. Moist mucous membranes. Neck has full range of motion without eliciting any pain. There is no thyroid enlargement and no masses were felt. EYES: The sclera were anicteric and conjunctiva are pale. Extraocular movements were intact and pupils were equal round and reactive to light. Eyelids were unremarkable. PULMONARY: Unlabored respirations. Good breath sounds bilaterally. No audible rales rhonchi or wheezing was noted. CARDIOVASCULAR: There is a regular rate and rhythm without any murmurs gallops or rubs. Femoral pulses are equal bilaterally ABDOMEN: Soft and nontender with normal bowel sounds. SKIN: Patient is pale NEUROLOGIC: Patient is alert and oriented x3. Cranial nerves II through XII are grossly intact. Motor and sensory are also intact. Normal speech, volume and content. Symmetrical smile. MUSCULOSKELETAL: Normal extremities with adequate strength and full range of motion. No lower extremity swelling or edema. No calf tenderness. LYMPHATICS: No significant lymphadenopathy is noted PSYCHIATRIC: Normal psychiatric evaluation. Limitations: no limitations Course Vital Signs 01/11/23 12:36 Temperature 97.7 F Pulse Rate 90 Respiratory 20 Rate Blood Pressure 126/60 O2 Sat by Pulse 98 Oximetry Medical Decision Making - Medical Decision Making EKG interpreted by myself. EKG shows a sinus rhythm at 91 bpm TN interval 236 QRS is 86 QT interval 308 QTC is 357. Patient's EKG shows ST segment depression in the inferior leads as well as precordial leads V Was pt. sent in by a medical professional or institution (, PA, URBAN SOCIOLOGIST, urgent care, hospital, or senior living...) When possible be specific @ -No Did you speak to anyone other than the patient for history (EM S, parent, family, police, friend...)? What history was obtained from this source @ -EMS gave part of the history in this patient Did you review nursing and triage notes (agree or disagree)? Why? @ -I reviewed and agree with nursing and triage notes Were old charts reviewed (outside hosp., previous admission, EMS record, old EKG, old radiological studies, urgent care reports/EKG's, senior living records)? Report findings @ -I reviewed prior charts prior labral: This patient Differential Diagnosis (chest pain, altered mental status, abdominal pain women, abdominal pain men, vaginal bleeding, weakness, fever, dyspnea, syncope, headache, dizziness, GI bleed, back pain, seizure, CVA, palpatations, mental health, musculoskeletal)? @ -Differential Weakness: Hypoglycemia, shock, sepsis, hyponatremia, anemia, infection, CA, ETOH, adverse medicine reaction, overdose, stroke, this is not meant to be an all-inclusive list. EKG interpreted by me (3pts min.). @ -As above X-rays interpreted by me (1pt min.). @ -None done CT interpreted by me (1pt min.). @ -None done U/S interpreted by me (1pt. min.). @ -None done What testing was considered but not performed or refused? (CT, X-rays, U/S, labs)? Why? @ -None What meds were considered but not given or refused? Why? @ -None Did you discuss the management of the patient with other professionals (professionals i.e. , PA, URBAN SOCIOLOGIST, lab, RT, psych nurse, social staff worker, telecommunications field engineer, teacher, security officer supervisor, protective services case worker)? Give summary @ -I spoke with the ER document [facility] and he accepted the transfer to his facility. Was smoking cessation discussed for >3mins.? @ -No Was critical care preformed (if so, how long)? @ -No Were there social determinants of health that impacted care today? How? (Homelessness, low income, unemployed, alcoholism, drug addiction, transportation, low edu. Level, literacy, decrease access to med. care, [facility], rehab)? @ -No Was there de-escalation of care discussed even if they declined (Discuss DNR or withdrawal of care, Hospice)? DNR status @ -No What co-morbidities impacted this encounter? (DM, HTN, Smoking, COPD, CAD, Cancer, CVA, ARF, Chemo, Hep., AIDS, mental health diagnosis, sleep apnea, morbid obesity)? @ -None Was patient admitted / discharged? Hospital course, mention meds given and route, prescriptions, significant lab abnormalities, going to OR and other pertinent info. @ -A shows hemoglobin came back 4.9. I ordered 2 units of packed red blood cells. Patient's potassium came back at 2. [address] potassium orally and with IV. Patient's EKG showed some ST segment depression in the inferior precordial leads. A troponin was mildly elevated at 0.1. I initially spoke with Dr. Ochoa and she felt patient would have better care since we don't have GI here to go to [facility]. I spoke with [facility] we will transfer the patient out. Undiagnosed new problem with uncertain prognosis? @ -No Drug Therapy requiring intensive monitoring for toxicity (Heparin, Nitro, Insulin, Cardizem)? @ -No Were any procedures done? @ -No Diagnosis/symptom? @ -GI bleed Acute, or Chronic, or Acute on Chronic? @ -Acute Uncomplicated (without systemic symptoms) or Complicated (systemic symptoms)? @ -Complicated Side effects of treatment? @ -No Exacerbation, Progression, or Severe Exacerbation? @ -No Poses a threat to life or bodily function? How? (Chest pain, USA, CA, pneumonia, PE, COPD, DKA, ARF, appy, cholecystitis, CVA, Diverticulitis, Homicidal, Suicidal, threat to staff... and all critical care pts) @ -Yes this could lead to hypoxia and end organ dysfunction Diagnosis/symptom? @ -Hypokalemia Acute, or Chronic, or Acute on Chronic? @ -Acute Uncomplicated (without systemic symptoms) or Complicated (systemic symptoms)? @ -default Side effects of treatment? @ -none Exacerbation, Progression, or Severe Exacerbation] @ -no Poses a threat to life or bodily function? @ -no Diagnosis/symptom? @ -Elevated troponin Acute, or Chronic, or Acute on Chronic? @ -Acute Uncomplicated (without systemic symptoms) or Complicated (systemic symptoms)? @ -Complicated Side effects of treatment? @ -none Exacerbation, Progression, or Severe Exacerbation] @ -no Poses a threat to life or bodily function? @ -Yes this could lead to an CA and end organ dysfunction - Lab Data Result diagrams: 01/11/23 12:50 01/11/23 12:50 Lab Results 01/11/23 01/11/23 01/11/23 Range/Units 12:50 12:50 12:50 WBC 6.5 (3.8-10.6) k/uL RBC 1.70 L (3.80-5.40) m/uL Hgb 4.9 L* D (11.4-16.0) gm/dL Hct 15.3 L* (34.0-46.0) % MCV 90.2 (80.0-100.0) fL MCH 28.6 (25.0-35.0) pg MCHC 31.7 (31.0-37.0) g/dL RDW 20.7 H (11.5-15.5) % Plt Count 305 (150-450) k/uL MPV 7.3 Neutrophils % 72 % Lymphocytes % 18 % Monocytes % 8 % Eosinophils % 1 % Basophils % 0 % Neutrophils # 4.7 (1.3-7.7) k/uL Lymphocytes # 1.2 (1.0-4.8) k/uL Monocytes # 0.5 (0-1.0) k/uL Eosinophils # 0.1 (0-0.7) k/uL Basophils # 0.0 (0-0.2) k/uL Hypochromasia Marked Poikilocytosis Moderate Anisocytosis Moderate Sodium 137 (137-145) mmol/L Potassium 2.6 L* (3.5-5.1) mmol/L Chloride 108 H (98-107) mmol/L Carbon Dioxide 19 L (22-30) mmol/L Anion Gap 10 mmol/L BUN 30 H (7-17) mg/dL Creatinine 0.83 (0.52-1.04) mg/dL Est GFR (CKD-EPI)AfAm 86 (>60 ml/min/1.73 sqM) Est GFR (CKD-EPI)NonAf 75 (>60 ml/min/1.73 sqM) Glucose 131 H (74-99) mg/dL Plasma Lactic Acid Anand (0.7-2.0) mmol/L Calcium 8.1 L (8.4-10.2) mg/dL Magnesium 1.7 (1.6-2.3) mg/dL Total Bilirubin 0.3 (0.2-1.3) mg/dL AST 17 (14-36) U/L ALT 14 (4-34) U/L Alkaline Phosphatase 88 (38-126) U/L Troponin I (0.000-0.034) ng/mL Total Protein 5.7 L (6.3-8.2) g/dL Albumin 2.9 L (3.5-5.0) g/dL Stool Occult Blood Positive H (Negative) Blood Type Blood Type Recheck Bld Type Recheck Status Antibody Screen Crossmatch Spec Expiration Date 01/11/23 01/11/23 01/11/23 Range/Units 12:50 12:50 12:50 WBC (3.8-10.6) k/uL RBC (3.80-5.40) m/uL Hgb (11.4-16.0) gm/dL Hct (34.0-46.0) % MCV (80.0-100.0) fL MCH (25.0-35.0) pg MCHC (31.0-37.0) g/dL RDW (11.5-15.5) % Plt Count (150-450) k/uL MPV Neutrophils % % Lymphocytes % % Monocytes % % Eosinophils % % Basophils % % Neutrophils # (1.3-7.7) k/uL Lymphocytes # (1.0-4.8) k/uL Monocytes # (0-1.0) k/uL Eosinophils # (0-0.7) k/uL Basophils # (0-0.2) k/uL Hypochromasia Poikilocytosis Anisocytosis Sodium (137-145) mmol/L Potassium (3.5-5.1) mmol/L Chloride (98-107) mmol/L Carbon Dioxide (22-30) mmol/L Anion Gap mmol/L BUN (7-17) mg/dL Creatinine (0.52-1.04) mg/dL Est GFR (CKD-EPI)AfAm (>60 ml/min/1.73 sqM) Est GFR (CKD-EPI)NonAf (>60 ml/min/1.73 sqM) Glucose (74-99) mg/dL Plasma Lactic Acid Anand 1.7 (0.7-2.0) mmol/L Calcium (8.4-10.2) mg/dL Magnesium (1.6-2.3) mg/dL Total Bilirubin (0.2-1.3) mg/dL AST (14-36) U/L ALT (4-34) U/L Alkaline Phosphatase (38-126) U/L Troponin I 0.104 H* (0.000-0.034) ng/mL Total Protein (6.3-8.2) g/dL Albumin (3.5-5.0) g/dL Stool Occult Blood (Negative) Blood Type A Positive Blood Type Recheck A Pos Bld Type Recheck Status No Antibody Screen NEGATIVE Crossmatch See Detail Spec Expiration Date 01/14/20232349 Disposition Clinical Impression: GI bleed, Anemia, Hypokalemia, Elevated troponin Disposition: OTHER INSTITUTION NOT DEFINED Referrals: Olivier Trinidad DO [Primary Care Provider] - 1-2 days Time of Disposition: 14:33 - Out of Hospital Transfer - Req. Specs Out of Hospital Transfer - Requested Specifics: Other Emergency Center ([facility])
[2023-01-11 13:20] LABS: Anisocytosis Moderate; Basophils % (A) 0 %; Eosinophils # (A) 0.1 k/uL (0-0.7); Eosinophils % (A) 1 %; Hypochromasia Marked; Lymphocytes # (A) 1.2 k/uL (1.0-4.8); Lymphocytes % (A) 18 %; MCH 28.6 pg (25.0-35.0); MCHC 31.7 g/dL (31.0-37.0); MCV 90.2 fL (80.0-100.0); Mean Platelet Volume 7.3; Monocytes # (A) 0.5 k/uL (0-1.0); Monocytes % (A) 8 %; Neutrophils # (A) 4.7 k/uL (1.3-7.7); Neutrophils % (A) 72 %; Platelet Count 305 k/uL (150-450); Poikilocytosis Moderate; RDW 20.7 % (11.5-15.5); WBC 6.5 k/uL (3.8-10.6)
[2023-01-11 13:25] LABS: HCT 15.3 % (34.0-46.0); HGB 4.9 gm/dL (11.4-16.0)
[2023-01-11 13:29] LABS: ALT 14 U/L (4-34); AST 17 U/L (14-36); African American GFR (CKD) 86 (>60 ml/min/1.73 sqM); Albumin 2.9 g/dL (3.5-5.0); Alkaline Phosphatase 88 U/L (38-126); Anion Gap 10 mmol/L; Blood Urea Nitrogen 30 mg/dL (7-17); Calcium 8.1 mg/dL (8.4-10.2); Carbon Dioxide 19 mmol/L (22-30); Chloride 108 mmol/L (98-107); Glucose 131 mg/dL (74-99); Magnesium 1.7 mg/dL (1.6-2.3); Non-African American GFR(CKD) 75 (>60 ml/min/1.73 sqM); Sodium 137 mmol/L (137-145); Total Bilirubin 0.3 mg/dL (0.2-1.3); Total Protein 5.7 g/dL (6.3-8.2)
[2023-01-11 13:37] LABS: Potassium 2.6 mmol/L (3.5-5.1)
[2023-01-11] MEDS ORDERED: POTASSIUM CHLORIDE ER 20 MEQ TAB.ER PO STA (13:44)
[2023-01-11] MEDS ORDERED: POTASSIUM CHLORIDE 20 MEQ in WATER FOR INJECTION 1 100ML.BAG IVPB STA (13:45)
[2023-01-11 14:18] LABS: INR 1.1 (<1.2); Partial Thromboplastin Time 23.4 sec (22.0-30.0); Prothrombin Time 12.1 sec (10.0-12.5)
[2023-01-11 15:13] VITALS: BP 120/58; PULSE 82; RESP 17; TEMP 97.8
== END 2023-01-11 15:08 | disposition other institution (70) ==
LOC: EC 12:34
DX: D64.9 Anemia, unspecified (principal); K92.2 Gastrointestinal hemorrhage, unspecified; E87.6 Hypokalemia; R79.89 Other specified abnormal findings of blood chemistry; I10 Essential (primary) hypertension; I25.10 Atherosclerotic heart disease of native coronary artery without angina pectoris; J44.9 Chronic obstructive pulmonary disease, unspecified; K21.9 Gastro-esophageal reflux disease without esophagitis; F32.A Depression, unspecified; F41.9 Anxiety disorder, unspecified; M06.9 Rheumatoid arthritis, unspecified; E78.00 Pure hypercholesterolemia, unspecified; Z95.1 Presence of aortocoronary bypass graft; Z79.899 Other long term (current) drug therapy; Z88.5 Allergy status to narcotic agent; Z90.49 Acquired absence of other specified parts of digestive tract; Z87.891 Personal history of nicotine dependence; Z86.73 Personal history of transient ischemic attack (TIA), and cerebral infarction without residual deficits
CPT/HCPCS: 99285; 96365; 36430; 36415; 93005; 86900; 86901; 80053; 83605; 83735; 84484; 85025; 85610; 85730; 86850; 86920; 82272; P9016; J3480

== ENCOUNTER 2023-01-29 15:49 | Inpatient (IN) | payer MEDICARE, OTHER ==
[2023-01-29 17:22] LABS: African American GFR (CKD) 74 (>60 ml/min/1.73 sqM); Albumin 3.2 g/dL (3.5-5.0); Alkaline Phosphatase 232 U/L (38-126); Anion Gap 13 mmol/L; Blood Urea Nitrogen 21 mg/dL (7-17); Calcium 8.8 mg/dL (8.4-10.2); Carbon Dioxide 16 mmol/L (22-30); Chloride 108 mmol/L (98-107); Glucose 76 mg/dL (74-99); Lipase 111 U/L (23-300); Non-African American GFR(CKD) 64 (>60 ml/min/1.73 sqM); Potassium 4.1 mmol/L (3.5-5.1); Sodium 137 mmol/L (137-145); Total Bilirubin 1.3 mg/dL (0.2-1.3)
--- NOTE | 2023-01-29 17:32 | XR ---
EXAMINATION TYPE: XR chest 2V DATE OF EXAM: 01/29/2023 COMPARISON: 12/25/2022 HISTORY: Cough, nausea and chest pain TECHNIQUE: Frontal and lateral views of the chest are obtained. FINDINGS: There is a large right lower lobe and right middle lobe infiltrate obscuring the right hemidiaphragm. There is a probable small right pleural effusion The left lung is clear. There are median sternotomy wires. There is mild cardiomegaly. There is no definite pulmonary vascular congestion. There are marked degenerative changes in the shoulders. Otherwise the osseous structures are intact. IMPRESSION: 1. Large right middle and lower lobe infiltrates with small pleural effusion. Findings most consisten t with pneumonia. 2. Mild cardiomegaly without pulmonary vascular congestion.
--- NOTE | 2023-01-29 17:34 | XR ---
KUB. HISTORY: Abdominal distention COMPARISON: None. TECHNIQUE: 2 supine views of the abdomen were obtained. FINDINGS: There is a right lower lobe infiltrate and effusion. The bowel gas pattern is nonspecific and there is no evidence of obstruction. No suspicious abdominal or pelvic calcifications are seen. The osseous structures are intact. Status post cholecystectomy. IMPRESSION: Nonspecific bowel gas pattern. Right lower lobe infiltrate and effusion.
[2023-01-29] MEDS ORDERED: MORPHINE SULFATE 4 MG/ML SYRINGE IVP STA (17:45)
[2023-01-29] MEDS ORDERED: ONDANSETRON 4 MG/2 ML VIAL IVP STA (17:46)
[2023-01-29 17:48] LABS: Anisocytosis Slight; Basophils % (A) 0 %; Eosinophils # (A) 0.1 k/uL (0-0.7); Eosinophils % (A) 1 %; HCT 31.4 % (34.0-46.0); Hypochromasia Marked; Lymphocytes # (A) 1.4 k/uL (1.0-4.8); Lymphocytes % (A) 14 %; MCH 28.7 pg (25.0-35.0); MCHC 32.2 g/dL (31.0-37.0); Mean Platelet Volume 8.7; Monocytes # (A) 0.6 k/uL (0-1.0); Monocytes % (A) 6 %; Neutrophils # (A) 7.6 k/uL (1.3-7.7); Neutrophils % (A) 77 %; Platelet Count 231 k/uL (150-450); Poikilocytosis Slight; RBC 3.53 m/uL (3.80-5.40); RDW 17.1 % (11.5-15.5); WBC 9.9 k/uL (3.8-10.6)
[2023-01-29 17:54] LABS: Appearance,Urine Turbid (Clear); Bacteria,Urine Few /hpf; Bilirubin,Urine Negative (Negative); Blood,Urine Large (Negative); Color,Urine Yellow; Glucose,Urine (UA) Negative (Negative); Ketones,Urine Negative (Negative); Leukocyte Esterase,Urine Large (Negative); Nitrite,Urine Negative (Negative); Protein,Urine 3+ (Negative); RBC,Urine 26 /hpf (0-5); Specific Gravity,Urine 1.023 (1.001-1.035); Squamous Epithelial Cell,Urine 4 /hpf (0-4); WBC,Urine >182 /hpf (0-5)
[2023-01-29 17:55] LABS: HGB 10.1 gm/dL (11.4-16.0)
[2023-01-29 17:59] LABS: INR 1.7 (<1.2); Prothrombin Time 17.7 sec (10.0-12.5)
[2023-01-29 18:00] LABS: ALT 1067 U/L (4-34); AST 1356 U/L (14-36); NT-Pro-B-Type Natriuretic Pept 50900 pg/mL
--- NOTE | 2023-01-29 19:01 | ED ---
Abdominal Pain HPI - General Chief Complaint: Abdominal Pain Stated Complaint: Nausea, vomiting Time Seen by Provider: 01/29/23 16:25 Source: patient Mode of arrival: EMS Limitations: no limitations - History of Present Illness Initial Comments: 67-year-old female with past medical history of coronary artery disease status post bypass, COPD, CVA, gastric ulcer with recent GI bleed who presents to the emergency department reporting shortness of breath. States that she cannot transitioned from her wheelchair to bed without being extremely short of breath area and she admits to nausea with vomiting. Denies chest pain. States that she has been extremely lightheaded with the sensation that she is going to pass out. States that she has had several episodes of near syncope at home. She admits to abdominal bloating. Denies changes in her bowel or bladder habits. No fevers. Does admit to a productive cough. Patient recently hospitalized and [facility] for GI bleed. States that she was scoped however they did not find the source of her bleeding. They did take her off her Plavix. States she has a history of COPD but does not require oxygen. She has had recent IV antibiotic use due to infected knee joint. No antibiotic use. Patient follows with Dr. Simental. Remainder of history is difficult to obtain due to patient being a poor historian - Related Data Home Medications Medication Instructions Recorded Confirmed Isosorbide Mononitrate [Imdur] 30 mg PO DAILY 11/22/13 01/29/23 Metoprolol Tartrate [Lopressor] 50 mg PO BID 01/19/17 01/29/23 Omeprazole 20 mg PO DAILY 01/19/17 01/29/23 traZODone HCL 50 mg PO HS 02/26/19 01/29/23 Hydroxychloroquine Sulfate 200 mg PO BID 10/09/22 01/29/23 [Plaquenil] Ascorbic Acid [Vitamin C] 1,000 mg PO DAILY 11/17/22 01/29/23 Sennosides [Senokot] 8.6 mg PO BID PRN 11/17/22 01/29/23 Atorvastatin [Lipitor] 80 mg PO HS 12/25/22 01/29/23 Citalopram Hydrobromide [CeleXA] 40 mg PO DAILY 12/25/22 01/29/23 HYDROcodone/APAP 7.5-325MG [[place] 1 tab PO Q4H PRN 12/25/22 01/29/23 7.5-325] lisinopriL [Zestril] 5 mg PO DAILY 12/25/22 01/29/23 Cholecalciferol [Vitamin D3 (125 125 mcg PO DAILY 01/29/23 01/29/23 Mcg = 5000 Iu)] Furosemide [Lasix] 20 mg PO Q48H 01/29/23 01/29/23 Previous Rx's Medication Instructions Recorded Magnesium Oxide [Mag-Ox] 400 mg PO DAILY #60 tablet 12/28/22 Allergies Allergy/AdvReac Type Severity Reaction Status Date / Time codeine AdvReac Nausea & Verified 01/29/23 21:47 Vomiting Review of Systems ROS Statement: Those systems with pertinent positive or pertinent negative responses have been documented in the HPI. ROS Other: All systems not noted in ROS Statement are negative. Past Medical History Past Medical History: Coronary Artery Disease (CAD), Cancer, Chest Pain / Angina, COPD, CVA/TIA, GERD/Reflux, Hyperlipidemia, Hypertension, Osteoarthritis (OA), Rheumatoid Arthritis (RA), Skin Disorder, Vascular Disorder Additional Past Medical History / Comment(s): chronic back pain., scoliosis., heart murmur, SOB w/activity, hx of gastric ulcer, cervical cancer, eczema, TIA-no residuals., frequent diarrhea., hepatitis C with tx,hamlet cataracts, left knee replaced recently-not healing well per pt, lot of pain, recent cataract surg. History of Any Multi-Drug Resistant Organisms: MRSA Date of last positivie culture/infection: 12/11/22 MDRO Source:: Left Knee/Blood Past Surgical History: Section, Cholecystectomy, Coronary Bypass/CABG, Heart Catheterization, Heart Catheterization With Stent, Joint Replacement, Orthopedic Surgery, Tubal Ligation Additional Past Surgical History / Comment(s): triple CABG 2008, ORIF right leg, ., heart cath with stent 2013(Mph)., heart cath no stent (2019). left knee replaced 03-15-22, tip fib screws Past Anesthesia/Blood Transfusion Reactions: No Reported Reaction Date of Last Stent Placement:: 2013 Past Psychological History: Anxiety, Depression Smoking Status: Former smoker Past Alcohol Use History: None Reported Past Drug Use History: None Reported - Past Family History Father Family Medical History: Cancer, Dementia Additional Family Medical History / Comment(s): AT AGE 84-LUNG CANCER. Mother Family Medical History: Coronary Artery Disease (CAD) Additional Family Medical History / Comment(s): AT AGE 73. Brother(s) Family Medical History: Cancer General Exam Limitations: no limitations General appearance: alert, lethargic Head exam: Present: atraumatic, normocephalic, normal inspection Eye exam: Present: normal appearance, PERRL, EOMI. Absent: scleral icterus, conjunctival injection, periorbital swelling ENT exam: Present: normal exam, mucous membranes moist Neck exam: Present: normal inspection. Absent: tenderness, meningismus, lymphadenopathy Respiratory exam: Present: rales (Right lung base) Cardiovascular Exam: Present: normal rhythm, bradycardia, systolic murmur GI/Abdominal exam: Present: soft, distended Extremities exam: Present: normal inspection, full ROM, normal capillary refill. Absent: tenderness, pedal edema, joint swelling, calf tenderness Neurological exam: Present: alert, oriented X3 Psychiatric exam: Present: flat affect Skin exam: Present: warm, dry, intact, normal color. Absent: rash Course Vital Signs 01/29/23 01/29/23 01/29/23 16:12 17:49 20:21 Temperature 97.9 F Pulse Rate 57 L 58 L 58 L Respiratory 18 18 18 Rate Blood Pressure 140/62 152/73 O2 Sat by Pulse 95 94 L 99 Oximetry 01/29/23 01/29/23 01/29/23 21:00 22:00 22:55 Temperature 98.2 F Pulse Rate 57 L 61 Respiratory 22 19 Rate Blood Pressure 157/75 161/68 O2 Sat by Pulse 98 98 Oximetry 01/29/23 23:23 Temperature Pulse Rate 56 L Respiratory 16 Rate Blood Pressure 142/55 O2 Sat by Pulse 94 L Oximetry - Reevaluation(s) Reevaluation #1: Patient meet sepsis criteria at this time. Fluids not given to the patient due to extremely elevated BNP with heart failure history. 01/29/23 180 Reevaluation #2: 01/29/23 21:[address] Simental. Will dose the patient's metoprolol for her non sustained V. tach Medical Decision Making - Medical Decision Making Was pt. sent in by a medical professional or institution (, PA, PLASTIC JOINT MAKER, urgent care, hospital, or assisted...) When possible be specific @ -No Did you speak to anyone other than the patient for history (EMS, parent, family, police, friend...)? What history was obtained from this source @ -With EMS for history Did you review nursing and triage notes (agree or disagree)? Why? @ -I reviewed and agree with nursing and triage notes Were old charts reviewed (outside hosp., previous admission, EMS record, old EKG, old radiological studies, urgent care reports/EKG's, assisted records)? Report findings @ -I reviewed patient's last ER visit where she was transferred to [facility] for GI bleed. Also reviewed the patient's last echo and cardiology cons ultation no Differential Diagnosis (chest pain, altered mental status, abdominal pain women, abdominal pain men, vaginal bleeding, weakness, fever, dyspnea, syncope, headache, dizziness, GI bleed, back pain, seizure, CVA, palpatations, mental health, musculoskeletal)? @ -Differential Dyspnea: Coronary syndrome, arrhythmia, tamponade, asthma, COPD, pulmonary embolism, pneumonia, pneumothorax, pulmonary effusion, anaphylaxis, diabetic ketoacidosis, flailed chest, pulmonary contusion, diaphragmatic rupture, anemia, neuromuscular, this is not meant to be an all-inclusive list. EKG interpreted by me (3pts min.). @ -yes and demonstrates sinus bradycardia with a rate of 56. WA interval 148. QRS 82. QTC of 434. No acute ST segment elevations or depressions X-rays interpreted by me (1pt min.). @ -Yes and demonstrates right-sided pneumonia CT interpreted by me (1pt min.). @ Yes and continues to demonstrate right-sided pneumonia U/S interpreted by me (1pt. min.). @ -None done What testing was considered but not performed or refused? (CT, X-rays, U/S, labs)? Why? @ -None What meds were considered but not given or refused? Why? @ -None Did you discuss the management of the patient with other professionals (professionals i.e. , PA, PLASTIC JOINT MAKER, lab, RT, psych nurse, social work case manager, sort line worker, teacher, medical laboratory technical officer, leather case finisher)? Give summary @ Spoke with Dr. Simental due to patient's run of V. tach. also spoke with Dr. Trimble for admission Was smoking cessation discussed for >3mins.? @ -No Was critical care preformed (if so, how long)? @ -Yes, 35 minutes for multiple lab abnormalities. Consultation with cardioedd rodriguez for nonsustained V. tach Were there social determinants of health that impacted care today? How? (Homelessness, low income, unemployed, alcoholism, drug addiction, transportation, low edu. Level, literacy, decrease access to med. care, [facility], rehab)? @ -No Was there de-escalation of care discussed even if they declined (Discuss DNR or withdrawal of care, Hospice)? DNR status @ -No What co-morbidities impacted this encounter? (DM, HTN, Smoking, COPD, CAD, Cancer, CVA, ARF, Chemo, Hep., AIDS, mental health diagnosis, sleep apnea, morbid obesity)? @ -Coronary artery disease status post bypass, COPD, GI bleed, CVA Was patient admitted / discharged? Hospital course, mention meds given and route, prescriptions, significant lab abnormalities, going to OR and other pertinent info. @ -Upon arrival patient was placed in a hallway 10. History and physical exam was performed. IV access is established and laboratory studies were conducted. Patient requesting pain medication for body aches. She is given a dose of morphine. Zofran also given for nausea. Laboratory studies are conducted. Fluids are held at this time due to markedly elevated BNP. Chest x-ray demonstrates pneumonia. Patient does have elevated lactic however cannot rece sebas IV fluids due to extremely elevated BNP. I did initiate antibiotics. CT of the abdomen is performed due to elevated liver enzymes which demonstrated no acute intra-abdominal process. Patient does have an episode of nonsustained V. tach. Spoke with Dr. Simental. Concern that the patient is having episodes of V. tach at home as she reports did intermittent episodes of lightheadedness with concern that she is to pass out. He requests that I order the patient's metoprolol and monitor for recurrence. Patient will be admitted. Spoke with Dr. Trimble who agreed to admit the patient. Patient admitted to the floor with a very guarded prognosis Undiagnosed new problem with uncertain prognosis? @ -Yes Drug Therapy requiring intensive monitoring for toxicity (Heparin, Nitro, Insulin, Cardizem)? @ -No Were any procedures done? @ -No Diagnosis/symptom? @ -Acute respiratory insufficiency, HCAP, elevated BNP, lactic acidosis, nonsustained V. tach, transaminitis Acute, or Chronic, or Acute on Chronic? @ -Acute Uncomplicated (without systemic symptoms) or Complicated (systemic symptoms)? @ -complicated Side effects of treatment? @ -No Exacerbation, Progression, or Severe Exacerbation? @ -No Poses a threat to life or bodily function? How? (Chest pain, [place], [place], pneumonia, PE, COPD, DKA, ARF, appy, cholecystitis, CVA, Diverticulitis, Homicidal, Suicidal, threat to staff... and all critical care pts) @ -yes, patient has nonsustained vtach episode on monitor - Lab Data Result diagrams: 01/29/23 17:27 01/29/23 16:48 Lab Results 01/29/23 01/29/23 01/29/23 Range/Units 16:48 16:48 16:48 WBC (3.8-10.6) k/uL RBC (3.80-5.40) m/uL Hgb (11.4-16.0) gm/dL Hct (34.0-46.0) % MCV (80.0-100.0) fL MCH (25.0-35.0) pg MCHC (31.0-37.0) g/dL RDW (11.5-15.5) % Plt Count (150-450) k/uL MPV Neutrophils % % Lymphocytes % % Monocytes % % Eosinophils % % Basophils % % Neutrophils # (1.3-7.7) k/uL Lymphocytes # (1.0-4.8) k/uL Monocytes # (0-1.0) k/uL Eosinophils # (0-0.7) k/uL Basophils # (0-0.2) k/uL Hypochromasia Poikilocytosis Anisocytosis PT (10.0-12.5) sec INR (<1.2) Sodium 137 (137-145) mmol/L Potassium 4.1 (3.5-5.1) mmol/L Chloride 108 H (98-107) mmol/L Carbon Dioxide 16 L (22-30) mmol/L Anion Gap 13 mmol/L BUN 21 H (7-17) mg/dL Creatinine 0.94 (0.52-1.04) mg/dL Est GFR (CKD-EPI)AfAm 74 (>60 ml/min/1.73 sqM) Est GFR (CKD-EPI)NonAf 64 (>60 ml/min/1.73 sqM) Glucose 76 (74-99) mg/dL Lactic Ac Sepsis Rflx Plasma Lactic Acid Anand 4.0 H* (0.7-2.0) mmol/L Calcium 8.8 (8.4-10.2) mg/dL Magnesium (1.6-2.3) mg/dL Total Bilirubin 1.3 (0.2-1.3) mg/dL AST 1356 H (14-36) U/L ALT 1067 H (4-34) U/L Alkaline Phosphatase 232 H (38-126) U/L Troponin I (0.000-0.034) ng/mL NT-Pro-B Natriuret Pep 41305 pg/mL Total Protein 6.0 L (6.3-8.2) g/dL Albumin 3.2 L (3.5-5.0) g/dL Lipase 111 (23-300) U/L Urine Color Yellow Urine Appearance Turbid H (Clear) Urine pH 8.0 (5.0-8.0) Ur Specific Jackman 1.023 (1.001-1.035) Urine Protein 3+ H (Negative) Urine Glucose (UA) Negative (Negative) Urine Ketones Negative (Negative) Urine Blood Large H (Negative) Urine Nitrite Negative (Negative) Urine Bilirubin Negative (Negative) Urine Urobilinogen 4.0 (<2.0) mg/dL Ur Leukocyte Esterase Large H (Negative) Urine RBC 26 H (0-5) /hpf Urine WBC >182 H (0-5) /hpf Ur Squamous Epith Cells 4 (0-4) /hpf Urine Bacteria Few H (None) /hpf SARS-CoV-2 (PCR) (Not Detectd) 01/29/23 01/29/23 01/29/23 Range/Units 16:48 16:48 17:27 WBC (3.8-10.6) k/uL RBC (3.80-5.40) m/uL Hgb (11.4-16.0) gm/dL Hct (34.0-46.0) % MCV (80.0-100.0) fL MCH (25.0-35.0) pg MCHC (31.0-37.0) g/dL RDW (11.5-15.5) % Plt Count (150-450) k/uL MPV Neutrophils % % Lymphocytes % % Monocytes % % Eosinophils % % Basophils % % Neutrophils # (1.3-7.7) k/uL Lymphocytes # (1.0-4.8) k/uL Monocytes # (0-1.0) k/uL Eosinophils # (0-0.7) k/uL Basophils # (0-0.2) k/uL Hypochromasia Poikilocytosis Anisocytosis PT 17.7 H (10.0-12.5) sec INR 1.7 H (<1.2) Sodium (137-145) mmol/L Potassium (3.5-5.1) mmol/L Chloride (98-107) mmol/L Carbon Dioxide (22-30) mmol/L Anion Gap mmol/L BUN (7-17) mg/dL Creatinine (0.52-1.04) mg/dL Est GFR (CKD-EPI)AfAm (>60 ml/min/1.73 sqM) Est GFR (CKD-EPI)NonAf (>60 ml/min/1.73 sqM) Glucose (74-99) mg/dL Lactic Ac Sepsis Rflx Plasma Lactic Acid Anand (0.7-2.0) mmol/L Calcium (8.4-10.2) mg/dL Magnesium (1.6-2.3) mg/dL Total Bilirubin (0.2-1.3) mg/dL AST (14-36) U/L ALT (4-34) U/L Alkaline Phosphatase (38-126) U/L Troponin I 0.030 (0.000-0.034) ng/mL NT-Pro-B Natriuret Pep pg/mL Total Protein (6.3-8.2) g/dL Albumin (3.5-5.0) g/dL Lipase (23-300) U/L Urine Color Urine Appearance (Clear) Urine pH (5.0-8.0) Ur Specific Jackman (1.001-1.035) Urine Protein (Negative) Urine Glucose (UA) (Negative) Urine Ketones (Negative) Urine Blood (Negative) Urine Nitrite (Negative) Urine Bilirubin (Negative) Urine Urobilinogen (<2.0) mg/dL Ur Leukocyte Esterase (Negative) Urine RBC (0-5) /hpf Urine WBC (0-5) /hpf Ur Squamous Epith Cells (0-4) /hpf Urine Bacteria (None) /hpf SARS-CoV-2 (PCR) Not Detected (Not Detectd) 01/29/23 01/29/23 01/29/23 Range/Units 17:27 18:04 21:31 WBC 9.9 (3.8-10.6) k/uL RBC 3.53 L (3.80-5.40) m/uL Hgb 10.1 L D (11.4-16.0) gm/dL Hct 31.4 L (34.0-46.0) % MCV 89.0 (80.0-100.0) fL MCH 28.7 (25.0-35.0) pg MCHC 32.2 (31.0-37.0) g/dL RDW 17.1 H (11.5-15.5) % Plt Count 231 (150-450) k/uL MPV 8.7 Neutrophils % 77 % Lymphocytes % 14 % Monocytes % 6 % Eosinophils % 1 % Basophils % 0 % Neutrophils # 7.6 (1.3-7.7) k/uL Lymphocytes # 1.4 (1.0-4.8) k/uL Monocytes # 0.6 (0-1.0) k/uL Eosinophils # 0.1 (0-0.7) k/uL Basophils # 0.0 (0-0.2) k/uL Hypochromasia Marked Poikilocytosis Slight Anisocytosis Slight PT (10.0-12.5) sec INR (<1.2) Sodium (137-145) mmol/L Potassium (3.5-5.1) mmol/L Chloride (98-107) mmol/L Carbon Dioxide (22-30) mmol/L Anion Gap mmol/L BUN (7-17) mg/dL Creatinine (0.52-1.04) mg/dL Est GFR (CKD-EPI)AfAm (>60 ml/min/1.73 sqM) Est GFR (CKD-EPI)NonAf (>60 ml/min/1.73 sqM) Glucose (74-99) mg/dL Lactic Ac Sepsis Rflx Y Plasma Lactic Acid Anand 2.1 H* (0.7-2.0) mmol/L Calcium (8.4-10.2) mg/dL Magnesium (1.6-2.3) mg/dL Total Bilirubin (0.2-1.3) mg/dL AST (14-36) U/L ALT (4-34) U/L Alkaline Phosphatase (38-126) U/L Troponin I (0.000-0.034) ng/mL NT-Pro-B Natriuret Pep pg/mL Total Protein (6.3-8.2) g/dL Albumin (3.5-5.0) g/dL Lipase (23-300) U/L Urine Color Urine Appearance (Clear) Urine pH (5.0-8.0) Ur Specific Jackman (1.001-1.035) Urine Protein (Negative) Urine Glucose (UA) (Negative) Urine Ketones (Negative) Urine Blood (Negative) Urine Nitrite (Negative) Urine Bilirubin (Negative) Urine Urobilinogen (<2.0) mg/dL Ur Leukocyte Esterase (Negative) Urine RBC (0-5) /hpf Urine WBC (0-5) /hpf Ur Squamous Epith Cells (0-4) /hpf Urine Bacteria (None) /hpf SARS-CoV-2 (PCR) (Not Detectd) 01/29/23 Range/Units 21:31 WBC (3.8-10.6) k/uL RBC (3.80-5.40) m/uL Hgb (11.4-16.0) gm/dL Hct (34.0-46.0) % MCV (80.0-100.0) fL MCH (25.0-35.0) pg MCHC (31.0-37.0) g/dL RDW (11.5-15.5) % Plt Count (150-450) k/uL MPV Neutrophils % % Lymphocytes % % Monocytes % % Eosinophils % % Basophils % % Neutrophils # (1.3-7.7) k/uL Lymphocytes # (1.0-4.8) k/uL Monocytes # (0-1.0) k/uL Eosinophils # (0-0.7) k/uL Basophils # (0-0.2) k/uL Hypochromasia Poikilocytosis Anisocytosis PT (10.0-12.5) sec INR (<1.2) Sodium (137-145) mmol/L Potassium (3.5-5.1) mmol/L Chloride (98-107) mmol/L Carbon Dioxide (22-30) mmol/L Anion Gap mmol/L BUN (7-17) mg/dL Creatinine (0.52-1.04) mg/dL Est GFR (CKD-EPI)AfAm (>60 ml/min/1.73 sqM) Est GFR (CKD-EPI)NonAf (>60 ml/min/1.73 sqM) Glucose (74-99) mg/dL Lactic Ac Sepsis Rflx Plasma Lactic Acid Anand (0.7-2.0) mmol/L Calcium (8.4-10.2) mg/dL Magnesium 1.9 (1.6-2.3) mg/dL Total Bilirubin (0.2-1.3) mg/dL AST (14-36) U/L ALT (4-34) U/L Alkaline Phosphatase (38-126) U/L Troponin I (0.000-0.034) ng/mL NT-Pro-B Natriuret Pep pg/mL Total Protein (6.3-8.2) g/dL Albumin (3.5-5.0) g/dL Lipase (23-300) U/L Urine Color Urine Appearance (Clear) Urine pH (5.0-8.0) Ur Specific Jackman (1.001-1.035) Urine Protein (Negative) Urine Glucose (UA) (Negative) Urine Ketones (Negative) Urine Blood (Negative) Urine Nitrite (Negative) Urine Bilirubin (Negative) Urine Urobilinogen (<2.0) mg/dL Ur Leukocyte Esterase (Negative) Urine RBC (0-5) /hpf Urine WBC (0-5) /hpf Ur Squamous Epith Cells (0-4) /hpf Urine Bacteria (None) /hpf SARS-CoV-2 (PCR) (Not Detectd) Disposition Clinical Impression: Elevated brain natriuretic peptide (BNP) level, Aortic valvular stenoses, Nonsustained ventricular tachycardia, Transaminitis, Lactic acidosis, CAP (community acquired pneumonia) Disposition: ADMITTED IP TO THIS [facility] Condition: Serious Is patient prescribed a controlled substance at d/c from ED?: No Time of Disposition: 21:34 Decision to Admit Reason: Admit from EC Decision Date: 01/29/23 Decision Time: 21:34
[2023-01-29] MEDS ORDERED: PNEUMONIA PROTOCOL UTILIZED 1 EACH MISC PO PRN (19:43)
[2023-01-29] MEDS ORDERED: IPRATROPIUM-ALBUTEROL 3 ML NEB INHALATION PRN (19:43)
[2023-01-29] MEDS ORDERED: AZITHROMYCIN 500 MG in SODIUM CHLORIDE 0.9% 250 ML IVPB STA (19:43)
[2023-01-29] MEDS ORDERED: NITROGLYCERIN SL TABS 0.4 MG TAB SUBLINGUAL STA (20:28)
--- NOTE | 2023-01-29 21:07 | CT ---
EXAMINATION TYPE: CT abdomen pelvis w con CT DLP: 654.1 mGycm, Automated exposure control for dose reduction was used. DATE OF EXAM: 01/29/2023 8:01 PM COMPARISON: Same day chest x-ray CLINICAL INDICATION:Female, 67 years old with history of elevated liver enzymes, abd pain; abdominal pain and Nausea and vomiting elevated liver enzymes, TECHNIQUE: Axial CT of the abdomen and pelvis. Sagittal and coronal reformats were created on a [employer] workstation. Contrast used:80ml mL of Isovue 300 with IV Contrast, (none if empty) Oral contrast used: without Oral Contrast (none if empty) FINDINGS: LOWER CHEST: Mild cardiomegaly without pericardial effusion. A few coronary arterial calcifications. Moderate right pleural effusion, trace left pleural effusion. Mild left basilar subsegmental atelecta sis. Compressive atelectasis adjacent to the right effusion, plus additional patchy alveolar and inte rstitial opacities in the lower lumbar so than middle lobes with some fluid tracking along the fissur e. ABDOMEN LIVER: Heterogeneous appearance without evidence of focal mass. Reflux of contrast noted to the hepat ic veins. GALLBLADDER AND BILE DUCTS: Cholecystectomy clips. Nondilated biliary tree. PANCREAS: Unremarkable. SPLEEN: Unremarkable. ADRENAL GLANDS: Thickened appearance may be from hyperplasia.. KIDNEYS AND URETERS: Kidneys enhance symmetrically. There is no evidence of hydronephrosis. PELVIS BLADDER: Only minimally filled with a thickened appearance of the wall. REPRODUCTIVE: Uterus grossly unremarkable by CT. Small soft tissue densities suggested in the bilater al pelvis, probably relate to ovaries. There is a 2.1 cm low-attenuation/cystic lesion in the left pe lvis which probably relates to the ovary. A few coarsely peripherally calcified small round nodules w ithin the left pelvis and left lower abdomen, nonspecific but probably related to previous granulomat ous disease. ABDOMEN & PELVIS STOMACH AND BOWEL: Stomach and small bowel are nondistended, no evidence of obstruction. Unremarkable appendix. Some stool throughout the colon without focal inflammatory process seen. Colonic divertic chavez are present distally without evidence of diverticulitis. PERITONEUM/RETROPERITONEUM: No evidence of pneumoperitoneum. Small amount of free fluid in the abdome n, mostly perisplenic.. Small to moderate amount of free pelvic fluid. VASCULATURE: Heavy atherosclerotic calcification of the aorta and iliac arteries, without evidence of AAA or critical stenosis. There appears to be at least 50% narrowing in the bilateral common iliac a rteries. Moderate narrowing of the proximal celiac and superior mesenteric arteries. Mild/moderate st enosis of the proximal bilateral renal arteries. Nonvisualization VINICIUS. MUSCULOSKELETAL: Osteopenia and moderate diffuse degenerative changes. Grade 1 anterolisthesis L5 on S1. No definite acute osseous abnormality. Moderate apex right scoliosis of the lumbar spine with mil d lateral shifting L4 on L5. Sternotomy wires partially seen. LYMPH NODES: No gross evidence for lymphadenopathy. SOFT TISSUE/ABDOMINAL WALL: Mild body wall edema consistent with anasarca. IMPRESSION: 1. No evidence of acute inflammatory or obstructive process in the abdomen or pelvis. 2. Heterogeneous liver without focal mass detected. 3. Status post cholecystectomy without pathologic dilatation of the biliary tree. 4. Cardiomegaly with moderate right pleural effusion and reflux of contrast to the hepatic veins, co nsistent with right heart insufficiency. 5. Right middle and lower lobe opacities, likely combination of atelectasis and pneumonia. Minimal a telectasis in the left lung base. 6. Low-attenuation/cystic 2.1 cm structure in the left pelvis, likely relates to the ovary. This cou ld represent cyst or cystic neoplasm. Correlation with serum tumor markers and outpatient ultrasound recommended in this postmenopausal patient. 7. Small to moderate amount of free pelvic fluid, small amount of free abdominal fluid. 8. Heavy atherosclerotic calcification of the abdominal aorta and branches, as above. No evidence of AAA.
[2023-01-29] MEDS ORDERED: NALOXONE 0.4 MG/ML 1 ML VIAL IV PRN (21:37)
[2023-01-29] MEDS ORDERED: ATORVASTATIN 80 MG TAB PO SCH (22:00)
[2023-01-29] MEDS: METOPROLOL TARTRATE 50 MG TAB PO SCH (22:45)
[2023-01-29] MEDS: traZODone HCL 50 MG TAB PO SCH (22:45)
[2023-01-29] MEDS: HYDROcodone/APAP 7.5-325MG 1 EACH TAB PO PRN (22:47)
[2023-01-30] MEDS ORDERED: FUROSEMIDE 10 MG/ML 4 ML VIAL IV STA (00:15)
--- NOTE | 2023-01-30 00:15 | P.HPIM ---
History of Present Illness H&P Date: 01/29/23 Chief Complaint: abd pain 67-year-old female coronary artery disease status post CABG, moderate mitral and aortic valve stenosis Patient is coming in with couple day history of exertional dyspnea and abdominal pain. She described new onset exertional dyspnea with [id number] exertion around the house she denies any orthopnea or paroxysmal maternal dyspnea she denies any dyspnea at rest she denies any coughing fevers or chills she denies any chest pain. Denies any leg swelling. She also describes abdominal pain mainly epigastric and radiates to the rest of the abdomen she described it as dull achy pain 8 out of 10 in severity comes and goes not associated with any nausea vomiting denies any diarrhea or GI bleeding denies any changes in bowel or urinary habits. She does report GI bleeding earlier this month for which she went to a different facility she had some scoping done and no source was identified. She denies any ongoing bleeding since then she was on Plavix it's been on hold since then. Patient was recently evaluated in our hospital and of December where she was treated for an STEMI she had a left heart cath and cardiology recommended medica l management. She is also known to have valvular heart disease with moderate aortic and mitral valve stenosis. She reports that she was evaluated by cardiology and was told that she's not a good candidate for surgery. Patient does take plaquinel for rheumatoid arthritis She has history of hepatitis C status post treatment she denies any ongoing IV drug abuse illicit drugs smoking or heavy alcohol. She has history of cholecystectomy years ago. In the ER she had a non-sustained V. tach episodes asymptomatic for which cardiology recommended optimizing her electrolytes and resuming her beta blockers. She was also noted to have severely elevated transaminases enzymes for which she is admitted for further workup review of systems Pertinent positives as noted in HPI. All other systems were reviewed and are negative on exam Constitutional: No acute distress, conversant, pleasant Eyes: Anicteric sclerae, moist conjunctiva, Pupils equal round reactive to light ENMT: NC/AT Oropharynx clear, no erythema, or exudates Neck: Supple, no masses, or JVD No carotid bruits No thyromegaly Lungs: Diminished breath sounds at right lung base with some inspiratory rales no wheezing Clear to percussion Normal respiratory effort, no accessory muscle use Cardiovascular: Heart regular in rate and rhythm, Systolic murmurs, no gallops, or rubs No peripheral edema Abdominal: Soft, mildly distended Mildly tender diffusely, no guarding, rebound or rigidity Abdomen moving with respiration Normoactive bowel sounds No hepatomegaly, No splenomegaly No palpable mass Extremities: No digital cyanosis No clubbing Pedal pulses intact and symmetrical Radial pulses intact and symmetrical No calf tenderness Psychiatric: Alert and oriented to person, place and time Appropriate affect fair judgment Neuro Muscles Strength 5/5 in all 4 extremities Sensation to light touch grossly present throughout Cranial nerves II-XII grossly intact Lymphatics: no palpable cervical or supraclavicular lymph nodes Past Medical History Past Medical History: Coronary Artery Disease (CAD), Cancer, Chest Pain / Angina, COPD, CVA/TIA, GERD/Reflux, Hyperlipidemia, Hypertension, Osteoarthritis (OA), Rheumatoid Arthritis (RA), Skin Disorder, Vascular Disorder Additional Past Medical History / Comment(s): chronic back pain., scoliosis., heart murmur, SOB w/activity, hx of gastric ulcer, cervical cancer, eczema, TIA-no residuals., frequent diarrhea., hepatitis C with tx,hamlet cataracts, left knee replaced recently-not healing well per pt, lot of pain, recent cataract surg. History of Any Multi-Drug Resistant Organisms: MRSA Date of last positivie culture/infection: 12/11/22 MDRO Source:: Left Knee/Blood Past Surgical History: Section, Cholecystectomy, Coronary Bypass/CABG, Heart Catheterization, Heart Catheterization With Stent, Joint Replacement, Orthopedic Surgery, Tubal Ligation Additional Past Surgical History / Comment(s): triple CABG 2008, ORIF right leg, ., heart cath with stent 2013(Mph)., heart cath no stent (2019). left knee replaced 03-15-22, tip fib screws Past Anesthesia/Blood Transfusion Reactions: No Reported Reaction Date of Last Stent Placement:: 2013 Past Psychological History: Anxiety, Depression Smoking Status: Former smoker Past Alcohol Use History: None Reported Past Drug Use History: None Reported - Past Family History Father Family Medical History: Cancer, Dementia Additional Family Medical History / Comment(s): AT AGE 84-LUNG CANCER. Mother Family Medical History: Coronary Artery Disease (CAD) Additional Family Medical History / Comment(s): AT AGE 73. Brother(s) Family Medical History: Cancer Medications and Allergies Home Medications Medication Instructions Recorded Confirmed Type Isosorbide Mononitrate [Imdur] 30 mg PO DAILY 11/22/13 01/29/23 History Metoprolol Tartrate [Lopressor] 50 mg PO BID 01/19/17 01/29/23 History Omeprazole 20 mg PO DAILY 01/19/17 01/29/23 History traZODone HCL 50 mg PO HS 02/26/19 01/29/23 History Hydroxychloroquine Sulfate 200 mg PO BID 10/09/22 01/29/23 History [Plaquenil] Ascorbic Acid [Vitamin C] 1,000 mg PO DAILY 11/17/22 01/29/23 History Sennosides [Senokot] 8.6 mg PO BID PRN 11/17/22 01/29/23 History Atorvastatin [Lipitor] 80 mg PO HS 12/25/22 01/29/23 History Citalopram Hydrobromide [CeleXA] 40 mg PO DAILY 12/25/22 01/29/23 History HYDROcodone/APAP 7.5-325MG [[place] 1 tab PO Q4H PRN 12/25/22 01/29/23 History 7.5-325] lisinopriL [Zestril] 5 mg PO DAILY 12/25/22 01/29/23 History Magnesium Oxide [Mag-Ox] 400 mg PO DAILY #60 tablet 12/28/22 01/29/23 Rx Cholecalciferol [Vitamin D3 (125 125 mcg PO DAILY 01/29/23 01/29/23 History Mcg = 5000 Iu)] Furosemide [Lasix] 20 mg PO Q48H 01/29/23 01/29/23 History Allergies Allergy/AdvReac Type Severity Reaction Status Date / Time codeine AdvReac Nausea & Verified 01/29/23 21:47 Vomiting Physical Exam Vitals: Vital Signs Temp Pulse Resp BP Pulse Ox 01/29/23 23:23 56 L 16 142/55 94 L 01/29/23 22:55 98.2 F 01/29/23 22:00 61 19 161/68 98 01/29/23 21:00 57 L 22 157/75 98 01/29/23 20:21 58 L 18 99 01/29/23 17:49 58 L 18 152/73 94 L 01/29/23 16:12 97.9 F 57 L 18 140/62 95 Intake and Output 01/29/23 01/29/23 01/30/23 14:59 22:59 06:59 Other: Weight 49.895 kg Results CBC & Chem 7: 01/29/23 17:27 01/29/23 16:48 Labs: Abnormal Lab Results - Last 24 Hours (Table) 01/29/23 01/29/23 01/29/23 Range/Units 16:48 16:48 16:48 RBC (3.80-5.40) m/uL Hgb (11.4-16.0) gm/dL Hct (34.0-46.0) % RDW (11.5-15.5) % PT (10.0-12.5) sec INR (<1.2) Chloride 108 H (98-107) mmol/L Carbon Dioxide 16 L (22-30) mmol/L BUN 21 H (7-17) mg/dL Plasma Lactic Acid Anand 4.0 H* (0.7-2.0) mmol/L AST 1356 H (14-36) U/L ALT 1067 H (4-34) U/L Alkaline Phosphatase 232 H (38-126) U/L Total Protein 6.0 L (6.3-8.2) g/dL Albumin 3.2 L (3.5-5.0) g/dL Urine Appearance Turbid H (Clear) Urine Protein 3+ H (Negative) Urine Blood Large H (Negative) Ur Leukocyte Esterase Large H (Negative) Urine RBC 26 H (0-5) /hpf Urine WBC >182 H (0-5) /hpf Urine Bacteria Few H (None) /hpf 01/29/23 01/29/23 01/29/23 Range/Units 17:27 17:27 21:31 RBC 3.53 L (3.80-5.40) m/uL Hgb 10.1 L D (11.4-16.0) gm/dL Hct 31.4 L (34.0-46.0) % RDW 17.1 H (11.5-15.5) % PT 17.7 H (10.0-12.5) sec INR 1.7 H (<1.2) Chloride (98-107) mmol/L Carbon Dioxide (22-30) mmol/L BUN (7-17) mg/dL Plasma Lactic Acid Anand 2.1 H* (0.7-2.0) mmol/L AST (14-36) U/L ALT (4-34) U/L Alkaline Phosphatase (38-126) U/L Total Protein (6.3-8.2) g/dL Albumin (3.5-5.0) g/dL Urine Appearance (Clear) Urine Protein (Negative) Urine Blood (Negative) Ur Leukocyte Esterase (Negative) Urine RBC (0-5) /hpf Urine WBC (0-5) /hpf Urine Bacteria (None) /hpf Assessment and Plan Assessment: 67-year-old female with coronary artery disease status post CABG moderate mitral and aortic valve stenosis coming in for exertional dyspnea and abdominal pain I discussed the case with the ED doctor and accepted the admission for right- sided pneumonia, severe acute transaminitis and episodes of nonsustained V. tach while in the ED for further evaluation and workup with anticipated length of stay more than 2 midnights Exertional dyspnea probably multifactorial due to valvular heart disease and acute pneumonia Right-sided pneumonia plan White count 9.9, bradycardia, afebrile Follow-up cultures Check urine Legionella antigen Chest x-ray showed right sided lung multilobar infilterates Start patient on Rocephin 2 g IV piggyback daily Azithromycin 500 mg by mouth daily Tylenol for fever Supplemental oxygen as needed LA 4.0 then 2.1 COVID negative Acute transaminitis 2/2 possible Plaquinel side effect, secondary to component of right-sided heart failure Most recent echocardiogram showing left ventricular ejection fraction 60% valvular heart disease with moderate Aortic and mitral valve stenosis check blood tylenol level, Salicylate level, Alcohol level US liver doppler rule out hepatic vein or artery thrombosis avoid hepatoxoci meds dc norco hold statin h/o cholecystectomy CT of the abdomen showed no acute pathology INR 1.7 Bili 1.3 AST 1256 , ALT 1067 CT abd evidence of acute inflammatory obstructive process in the abdomen Heterogeneous liver without focal mass detected status post cholecystectomy without pathologic dilatation of the biliary tree Cardiomegaly with moderate right pleural effusion with reflux of contrast into the hepatic veins consistent with right heart insufficiency CAD s/p CABAG valvular heart disease , with moderate mitral and aortic valve stenosis , patient reports she is not a good candidate for surgical repair recent NSTEMI and left heart cath done end december Cardio recommended maximal medical therapy Plavix on hold secondary to recent GI bleeding episode early January this year, she was scoped and no source was identified statin on hold secondary to acute transaminitis episode of asymptomatic NSVT while in the ED. continue metoprolol cardiology evaluation continue lisinopril for hypertension trops negative 0.03 BNP 41212 Computed tomography scan did suggest evidence of moderate right pleural effusion trial of lasix 40 mg IVP once chronic anemia , stable Hgb 10.2 recent episode of GI bleeding protonix 40 mg PO daily Incidental finding on CAT scan of left pelvic cyst : Low-attenuation cystic 2.1 cm structure in the left pelvis likely related to the ovary this could represent cyst or cystic neoplasia correlation with serum tumor markers an outpatient ultrasound recommended in this postmenopausal patient full code DVT PPX mechanical due to recent episode of GI bleeding
[2023-01-30 01:16] LABS: Acetaminophen <10.0 ug/mL; Alcohol <10 mg/dL; Salicylate <1.0 mg/dL
[2023-01-30 05:26] LABS: Anisocytosis Slight; Basophils % (A) 0 %; Eosinophils # (A) 0.1 k/uL (0-0.7); Eosinophils % (A) 1 %; HCT 31.7 % (34.0-46.0); HGB 9.9 gm/dL (11.4-16.0); Hypochromasia Marked; Lymphocytes # (A) 1.4 k/uL (1.0-4.8); Lymphocytes % (A) 17 %; MCH 27.9 pg (25.0-35.0); MCHC 31.2 g/dL (31.0-37.0); MCV 89.4 fL (80.0-100.0); Mean Platelet Volume 7.9; Monocytes # (A) 0.6 k/uL (0-1.0); Monocytes % (A) 7 %; Neutrophils # (A) 6.2 k/uL (1.3-7.7); Neutrophils % (A) 74 %; Platelet Count 238 k/uL (150-450); Poikilocytosis Slight; RBC 3.54 m/uL (3.80-5.40); RDW 16.9 % (11.5-15.5); WBC 8.4 k/uL (3.8-10.6)
[2023-01-30 05:36] LABS: African American GFR (CKD) 69 (>60 ml/min/1.73 sqM); Anion Gap 10 mmol/L; Blood Urea Nitrogen 25 mg/dL (7-17); Calcium 8.6 mg/dL (8.4-10.2); Carbon Dioxide 21 mmol/L (22-30); Chloride 107 mmol/L (98-107); Glucose 55 mg/dL (74-99); Non-African American GFR(CKD) 60 (>60 ml/min/1.73 sqM); Potassium 3.4 mmol/L (3.5-5.1); Sodium 138 mmol/L (137-145)
[2023-01-30] MEDS ORDERED: PHYTONADIONE ORAL 5 MG/5 ML ORAL.SYRG PO STA (08:30)
--- NOTE | 2023-01-30 08:53 | US ---
EXAMINATION TYPE: US liver DATE OF EXAM: 01/30/2023 COMPARISON: 01/29/2023 CT. CLINICAL INDICATION: Female, 67 years old with history of severe transaminitis; elevated labs, cholec ystectomy TECHNIQUE: Multiple sonographic images of the right upper quadrant are obtained. FINDINGS: EXAM MEASUREMENTS: Liver Length: 15.1 cm Gallbladder Wall: Surgically absent CBD: 0.8 cm Right Kidney: 9.2 x 4.3 x 3.8cm TIE HACKER NOTES:epigastric area completely gassed out Pancreas: not seen due to gas Liver: wn, did not appear heterogeneous as CT showed Gallbladder: Surgically absent Evidence for sonographic Malhotra's sign: no CBD: wnl Right Kidney: wnl pleural effusion seen throughout scan IMPRESSION: 1. No evidence for acute process. 2. Right pleural effusion.
[2023-01-30] MEDS ORDERED: POTASSIUM CHLORIDE ER 20 MEQ TAB.ER PO STA (09:04)
[2023-01-30] MEDS: HYDROcodone/APAP 7.5-325MG 1 EACH TAB PO PRN ×2 (09:09→13:24)
[2023-01-30] MEDS: lisinopriL 5 MG TAB PO SCH (09:09)
[2023-01-30] MEDS: PANTOPRAZOLE 40 MG TABLET PO SCH (09:10)
[2023-01-30] MEDS: MAGNESIUM OXIDE 400 MG TAB PO SCH (09:10)
[2023-01-30] MEDS: AZITHROMYCIN 500 MG TAB PO SCH (09:10)
--- NOTE | 2023-01-30 09:12 | XR ---
EXAMINATION TYPE: XR chest 1V portable DATE OF EXAM: 01/30/2023 5:59 AM CLINICAL INDICATION:Female, 67 years old with history of pneumonia; [facility] COMPARISON: Chest radiograph one day prior. TECHNIQUE: XR chest 1V portable Frontal view of the chest. FINDINGS: Lungs/Pleura: Overall stable appearance of the lungs demonstrate multifocal opacities within the righ t lung. Suggestion of small right pleural effusion is again identified. Pulmonary vascularity: Pulmonary vascular congestion. Heart/mediastinum: Cardiomediastinal silhouette is stable. Musculoskeletal: No acute osseous pathology. Median sternotomy wires are identified. IMPRESSION: Overall stable exam demonstrating right lung airspace disease and trace pleural effusion.
[2023-01-30] MEDS ORDERED: DEXTROSE 50% SYRINGE 50 ML IVP STA (09:17)
[2023-01-30] MEDS ORDERED: DEXTROSE 50% SYRINGE 50 ML IVP PRN ×2 (09:17)
--- NOTE | 2023-01-30 10:10 | XR ---
EXAMINATION TYPE: XR chest 1V portable DATE OF EXAM: 01/30/2023 10:00 AM CLINICAL INDICATION:Female, 67 years old with history of POst right thoracentesis; [facility] COMPARISON: Chest radiograph same day, 01/29/2023. TECHNIQUE: XR chest 1V portable Frontal view of the chest. FINDINGS: Lungs/Pleura: Interval improvement in right lung aeration, post thoracentesis. No evidence of pneumot horax. Pulmonary vascularity: Unremarkable. Heart/mediastinum: Cardiomediastinal silhouette is stable. Musculoskeletal: No acute osseous pathology. IMPRESSION: Interval improvement in right lung aeration post-thoracentesis. No identifiable pneumothorax.
[2023-01-30 11:22] LABS: Hepatitis C IgG Antibody Reactive (Non-Reactive)
[2023-01-30 11:27] LABS: African American GFR (CKD) 73 (>60 ml/min/1.73 sqM); Albumin 2.9 g/dL (3.5-5.0); Alkaline Phosphatase 204 U/L (38-126); Anion Gap 7 mmol/L; Blood Urea Nitrogen 27 mg/dL (7-17); Calcium 8.4 mg/dL (8.4-10.2); Carbon Dioxide 23 mmol/L (22-30); Chloride 106 mmol/L (98-107); Glucose 103 mg/dL (74-99); Non-African American GFR(CKD) 63 (>60 ml/min/1.73 sqM); Potassium 3.4 mmol/L (3.5-5.1); Sodium 136 mmol/L (137-145); Total Bilirubin 0.6 mg/dL (0.2-1.3); Total Protein 5.5 g/dL (6.3-8.2)
[2023-01-30 11:29] LABS: INR 1.6 (<1.2); Prothrombin Time 16.7 sec (10.0-12.5)
[2023-01-30 11:38] LABS: Glucose,Whole Blood 115 mg/dL (70-110)
[2023-01-30] MEDS: METOPROLOL TARTRATE 50 MG TAB PO SCH ×2 (11:40→20:43)
[2023-01-30 11:52] LABS: ALT 1254 U/L (4-34); AST 1223 U/L (14-36)
[2023-01-30 12:42] LABS: Hepatitis A Antibody IgM Nonreactive; Hepatitis B Core IgM Nonreactive; Hepatitis B Surface Antigen Nonreactive
[2023-01-30 13:32] LABS: Total Protein 5.6 g/dL (6.3-8.2)
--- NOTE | 2023-01-30 13:56 | OP ---
OPERATIVE REPORT DATE OF SERVICE : PROCEDURE PERFORMED: Right-sided thoracentesis. PREOPERATIVE DIAGNOSIS: Large right pleural effusion. POSTOPERATIVE DIAGNOSIS: Large right pleural effusion. ANESTHESIA USED: 2 mL of 1% lidocaine. DESCRIPTION OF PROCEDURE: The patient was placed in the sitting upright position, the area below the right scapula was prepared in a sterile fashion. Drapes were applied. At the level of the 8th intercostal space and tip of the scapula, the area was locally anesthetized, and a 26-gauge needle was inserted into the pleural space until the fluid was localized. Then, a small tiny incision was made, and a standard thoracentesis catheter and needle were used advanced at the same site into the pleural space, and as soon as the fluid was obtained, the catheter was advanced over the needle and the needle was pulled out of the pleural space. Freely flowing fluid was removed, roughly 1000 mL of straw- colored fluid was removed from the pleural space, the procedure was well tolerated, no complications, chest x-ray showed also no complication after the procedure, and there was complete resolution of her pleural effusion noted on the chest x-ray. Again, no complications, and procedure was well tolerated. The fluid was sent for different diagnostic studies. MMODL / IJN: [id number] /
--- NOTE | 2023-01-30 14:50 | P.PN ---
Subjective Progress Note Date: 01/30/23 Hospital course: Patient is a pleasant 67-year-old female with a past medical history of CAD status post CABG and stent placement, moderate to severe mitral and aortic valve stenosis, hypertension, hyperlipidemia, rheumatoid arthritis, peripheral vascular disease, and hepatitis C status post treatment. She presented to the emergency department on 01/29/23 with reports of new onset exertional dyspnea and mild generalized abdominal pain/discomfort. She underwent full evaluation in the emergency department. Labs were completed and reviewed. CBC revealed mi crocytic anemia with stable hemoglobin of 10.1. Coagulation profile revealed elevated INR of 1.7 and PT of 17.7. BMP revealing metabolic acidosis with chloride of 108, bicarb 16, and anion gap elevated at 13. Glucose 76. Lactic acid 2.1. Magnesium 1.9. Liver profile showing acute liver failure with AST of 1356, ALT of 1067, and alkaline phosphatase of 232 (previous labs drawn 01/11/23 show normal liver function with AST of 17, ALT 14, and alkaline phosphatase of 88). Urinalysis was positive for infection. Toxicology screen for acetaminophen negative at less than 10 and serum alcohol less than 10. Troponin was 0.030 and proBNP was 50,900. EKG was completed showing sinus bradycardia at 56 bpm with nonspecific T-wave abnormalities. Chest x-ray showing large right middle and lower lobe infiltrates with small pleural effusion and cardiomegaly. KUB showing nonspecific bowel gas pattern. Liver ultrasound was negative for acute intra-abdominal process. CT abdomen and pelvis showing no evidence of acute inflammatory or obstructive process throughout the abdomen or pelvis, revealing a heterogeneous liver without focal mass detected, showing no dilation of biliary tree, revealing cardiomegaly with moderate right pleural effusion and reflux of contrast to the hepatic veins consistent with right heart insufficiency, right middle and lower lobe opacities concerning for atelectasis and pneumonia, small to moderate amount of free pelvic fluid, heavy atherosclerotic calcification of the abdominal aorta and branches with no evidence of reported AAA, and findings as a cystic 2.1 cm structure in the left pelvis likely representing ovary however unable to rule out cyst or cystic neoplasm and radiologist recommending patient follow-up with outpatient ultrasound. 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 In the emergency department patient was reported to have recurrent runs of asymptomatic nonsustained V. tach Physical exam: Patient seen and fully evaluated at bedside. She currently reports pain in her joints mainly in her legs which she states is chronic from her rheumatoid arthritis. Patient otherwise denies having any complaints. Patient reports no shortness of breath at rest only with exertion. She denies having any chest pain, palpitations, abdominal pain, nausea, urinary frequency, urgency, dysuria, hematuria, melena, or hematochezia. Vital signs reviewed and stable. General: Nontoxic, no distress and appears stated age. Thin, frail. Appears chronically ill. Derm: Skin warm and dry, normal coloration for ethnicity. Head: Atraumatic, normocephalic and symmetric. Eyes: EOMs intact, no lid lag, and anicteric sclera Mouth: no lip lesions, mucus membranes moist Cardiovascular: regular rate and rhythm with normal S1S2, stage IV systolic murmur, positive posterior tibial pulses bilaterally, and cap refill < 2 seconds. Lungs: Respirations even, regular, and unlabored. Lungs diminished. Mild conversational dyspnea noted. Abdominal: soft, nontender to palpation, no guarding, no appreciable organomegaly Ext: Movement and sensation intact. No gross muscle atrophy, no edema, no contractures. Left lower extremity shorter than right lower extremity (this is baseline secondary to multiple previous surgeries) Neuro: Speech clear, face symmetrical and CN II-XII grossly intact with no noted focal neuro deficits Psych: Alert and oriented to person, place, time, and situation. Appropriate and pleasant affect. Assessment and Plan of Care: Acute transaminitis concerning for acute liver failure, likely resulting from right-sided heart failure vs drug induced hepatitis from adverse effect of Plaquenil Right-sided heart failure Elevated troponin, likely secondary to acute right-sided heart failure Large right-sided pleural effusion Concerns of right sided pneumonia UTI Recurrent episodes of nonsustained V. tach History of CAD status post CABG and stent placement Moderate to severe mitral and aortic valve stenosis Pretension Hyperlipidemia Rheumatoid arthritis Peripheral vascular disease History of Hepatitis C status post treatment -Pulmonology following planing to take patient for thoracentesis for further evaluation of large pleural effusion. -Cardiology following, appreciate recommendations. -Consult placed to counter dish carrier. -Hold hepatotoxic medications including [place], Plaquenil, and atorvastatin. -Patient to remain on continuous telemetry monitoring. -Hepatitis panel positive for hepatitis C IgG otherwise negative findings. -Legionella pending. -Continue with IV antibiotics Rocephin 2 g every 24 hours and azithromycin 500 mg daily. -Patient to continue with lisinopril 5 mg daily and metoprolol 50 mg twice daily. -Echocardiogram to be completed. -Patient received 1 dose of Lasix 40 mg IVP Hypoglycemia -Glucose 55 this morning. Patient placed on every 4 hours plan of care glucose checks along with glycemic protocol. Incidental finding on CT -CT revealing a 2.1 cm structure and left pelvis likely representing ovary however unable to rule out ovarian cyst versus cystic neoplasm, patient will require further workup with outpatient ultrasound once stable. Data and imaging reviewed: Repeat morning labs reviewed. CBC with continued normocytic anemia with hemoglobin stable at 9.9. Coagulation profile showing elevated PT of 16.7 and INR 1.6. BMP revealing hypokalemia with potassium of 3.4 from prerenal azotemia with BUN of 27 with blood glucose of 55 this morning. Repeat lactate showing resolution of lactic acidosis with lactate decreasing from initial 4.0 down to 1.2. Liver profile showing persistent transaminitis with AST of 1223, ALT of 1254, alkaline phosphatase of 204, and LDH elevated at 1244. Hepatitis panel resulting positive for hepatitis C IgG otherwise negative findings. Vital signs reviewed. Blood pressure 168/71, heart rate 55, respiratory rate 15, and SpO2 is 97% on 2 L O2 via nasal cannula. CODE STATUS: Full code DVT prophylaxis: Lovenox Anticipated discharge date: Clinical course to determine Anticipated discharge place: clinical course to determine Patient was seen independently by Nurse Pracitioner. This document was prepared using [employer] dictation software. Please allow for errors in veterinarian laboratory animal care, while rare they do occur. Jean Claude Lopez NP rendered care for this patient independently, reviewed the find ings and plan as documented in the note above. I did not physically speak with or examine the patient on this date. Objective - Vital Signs Vital signs: Vital Signs Temp 98.2 F 01/29/23 22:55 Pulse 55 L 01/30/23 06:00 Resp 15 01/30/23 06:00 BP 168/71 01/30/23 06:00 Pulse Ox 97 01/30/23 06:00 FiO2 Intake & Output 01/29/23 01/30/23 01/30/23 18:59 06:59 18:59 Weight 49.895 kg - Labs CBC & Chem 7: 01/31/23 09:11 11/27/23 09:11 Labs: Abnormal Lab Results - Last 24 Hours (Table) 01/29/23 01/29/23 01/29/23 Range/Units 16:48 16:48 16:48 RBC (3.80-5.40) m/uL Hgb (11.4-16.0) gm/dL Hct (34.0-46.0) % RDW (11.5-15.5) % PT (10.0-12.5) sec INR (<1.2) Potassium (3.5-5.1) mmol/L Chloride 108 H (98-107) mmol/L Carbon Dioxide 16 L (22-30) mmol/L BUN 21 H (7-17) mg/dL Glucose (74-99) mg/dL Plasma Lactic Acid Anand 4.0 H* (0.7-2.0) mmol/L AST 1356 H (14-36) U/L ALT 1067 H (4-34) U/L Alkaline Phosphatase 232 H (38-126) U/L Troponin I (0.000-0.034) ng/mL Total Protein 6.0 L (6.3-8.2) g/dL Albumin 3.2 L (3.5-5.0) g/dL Urine Appearance Turbid H (Clear) Urine Protein 3+ H (Negative) Urine Blood Large H (Negative) Ur Leukocyte Esterase Large H (Negative) Urine RBC 26 H (0-5) /hpf Urine WBC >182 H (0-5) /hpf Urine Bacteria Few H (None) /hpf 01/29/23 01/29/23 01/29/23 Range/Units 17:27 17:27 21:31 RBC 3.53 L (3.80-5.40) m/uL Hgb 10.1 L D (11.4-16.0) gm/dL Hct 31.4 L (34.0-46.0) % RDW 17.1 H (11.5-15.5) % PT 17.7 H (10.0-12.5) sec INR 1.7 H (<1.2) Potassium (3.5-5.1) mmol/L Chloride (98-107) mmol/L Carbon Dioxide (22-30) mmol/L BUN (7-17) mg/dL Glucose (74-99) mg/dL Plasma Lactic Acid Anand 2.1 H* (0.7-2.0) mmol/L AST (14-36) U/L ALT (4-34) U/L Alkaline Phosphatase (38-126) U/L Troponin I (0.000-0.034) ng/mL Total Protein (6.3-8.2) g/dL Albumin (3.5-5.0) g/dL Urine Appearance (Clear) Urine Protein (Negative) Urine Blood (Negative) Ur Leukocyte Esterase (Negative) Urine RBC (0-5) /hpf Urine WBC (0-5) /hpf Urine Bacteria (None) /hpf 01/30/23 01/30/23 01/30/23 Range/Units 00:32 04:59 04:59 RBC 3.54 L (3.80-5.40) m/uL Hgb 9.9 L (11.4-16.0) gm/dL Hct 31.7 L (34.0-46.0) % RDW 16.9 H (11.5-15.5) % PT (10.0-12.5) sec INR (<1.2) Potassium (3.5-5.1) mmol/L Chloride (98-107) mmol/L Carbon Dioxide (22-30) mmol/L BUN (7-17) mg/dL Glucose (74-99) mg/dL Plasma Lactic Acid Anand (0.7-2.0) mmol/L AST (14-36) U/L ALT (4-34) U/L Alkaline Phosphatase (38-126) U/L Troponin I 0.035 H* 0.038 H* (0.000-0.034) ng/mL Total Protein (6.3-8.2) g/dL Albumin (3.5-5.0) g/dL Urine Appearance (Clear) Urine Protein (Negative) Urine Blood (Negative) Ur Leukocyte Esterase (Negative) Urine RBC (0-5) /hpf Urine WBC (0-5) /hpf Urine Bacteria (None) /hpf 01/30/23 Range/Units 04:59 RBC (3.80-5.40) m/uL Hgb (11.4-16.0) gm/dL Hct (34.0-46.0) % RDW (11.5-15.5) % PT (10.0-12.5) sec INR (<1.2) Potassium 3.4 L (3.5-5.1) mmol/L Chloride (98-107) mmol/L Carbon Dioxide 21 L (22-30) mmol/L BUN 25 H (7-17) mg/dL Glucose 55 L (74-99) mg/dL Plasma Lactic Acid Anand (0.7-2.0) mmol/L AST (14-36) U/L ALT (4-34) U/L Alkaline Phosphatase (38-126) U/L Troponin I (0.000-0.034) ng/mL Total Protein (6.3-8.2) g/dL Albumin (3.5-5.0) g/dL Urine Appearance (Clear) Urine Protein (Negative) Urine Blood (Negative) Ur Leukocyte Esterase (Negative) Urine RBC (0-5) /hpf Urine WBC (0-5) /hpf Urine Bacteria (None) /hpf
--- NOTE | 2023-01-30 15:40 | P.CNPUL ---
History of Present Illness Consult date: 01/30/23 Requesting physician: Fran Gomez Reason for consult: dyspnea, pleural effusion, abnormal CXR/CT Chief complaint: Abdominal pain, shortness of breath History of present illness: This is a pleasant 67-year-old female patient with a known history of coronary artery disease with previous coronary artery bypass grafting and previous stenting, chronic back pain, chronic obstructive pulmonary disease, CVA/TIA, hyperlipidemia, hypertension, rheumatoid arthritis, former smoker who presented to the emergency room yesterday with complaints of increasing shortness of breath and some abdominal discomfort. X-ray revealed large right middle and lower lobe infiltrates with pleural effusion. Mild cardiomegaly. Abdominal x- ray revealed nonspecific bowel gas pattern. Computed tomography scan of the abdomen and pelvis revealed no evidence of inflammatory obstructive process. There is heterogenous liver without focal mass. Again noted moderate right pleural effusion. Liver ultrasound revealed no evidence of an acute process. She was found to have significantly elevated liver enzymes with an AST of 1356 and an ALT of 1067 and alk phos of 232. Troponins were 0.03 and 0.038. ProBNP 50,900. Urinalysis with 3+ proteins large blood and large leukoesterase and high WBCs and few bacteria. Hepatitis C screen is reactive. COVID-19 screen negative. White count 8.5. Hemoglobin 9.9. INR 1.6. Sodium 136. Potassium 3.4. Bicarb 23. BUN 27. Creatinine 0.9. Glucose 115. The patient was seen in consultation in the emergency department. Bedside ultrasound revealed a significant pocket of free-flowing fluid in the right chest. She did undergo a thoracentesis with 1 L of straw-colored fluid removed. Follow-up chest x-ray showed significant improvement in right lung aeration post thoracentesis. No evidence of pneumothorax. She remains awake and alert in no acute distress. She is maintaining O2 saturations in the 90s on 2 L nasal cannula. Afebrile. Hemodynamically stable. Review of Systems REVIEW OF SYSTEMS: CONSTITUTIONAL: Denies any recent significant weight loss or weight gain. EYES: Denies change in vision. EARS, NOSE, MOUTH, THROAT: Denies headaches, denies sore throat. CARDIOVASCULAR: Denies chest pain, palpitations or syncopal episodes. RESPIRATORY: Positive for shortness of breath, no cough, congestion or hemoptysis. GASTROINTESTINAL: Positive for abdominal pain GENITOURINARY: Denies hematuria, denies infections. MUSKULOSKELETAL: Denies pain, denies swelling. INTEGUMENTARY: Denies rash, denies eczema. NEUROLOGICAL: Denies recent memory loss, no recent seizure activity. PSYCHIATRIC: Denies anxiety, denies depression. HEMATOLOGIC/LYMPHATIC: Denies anemia, denies enlarged lymph nodes. Past Medical History Past Medical History: Coronary Artery Disease (CAD), Cancer, Chest Pain / Angina, COPD, CVA/TIA, GERD/Reflux, Hyperlipidemia, Hypertension, Osteoarthritis (OA), Rheumatoid Arthritis (RA), Skin Disorder, Vascular Disorder Additional Past Medical History / Comment(s): chronic back pain., scoliosis., heart murmur, SOB w/activity, hx of gastric ulcer, cervical cancer, eczema, TIA-no residuals., frequent diarrhea., hepatitis C with tx,hamlet cataracts, left knee replaced recently-not healing well per pt, lot of pain, recent cataract surg. History of Any Multi-Drug Resistant Organisms: MRSA Date of last positivie culture/infection: 12/11/22 MDRO Source:: Left Knee/Blood Past Surgical History: Section, Cholecystectomy, Coronary Bypass/CABG, Heart Catheterization, Heart Catheterization With Stent, Joint Replacement, Orthopedic Surgery, Tubal Ligation Additional Past Surgical History / Comment(s): triple CABG 2008, ORIF right leg, ., heart cath with stent 2013(M[facility])., heart cath no stent (2019). left knee replaced 03-15-22, tip fib screws Past Anesthesia/Blood Transfusion Reactions: No Reported Reaction Date of Last Stent Placement:: 2013 Past Psychological History: Anxiety, Depression Smoking Status: Former smoker Past Alcohol Use History: None Reported Past Drug Use History: None Reported - Past Family History Father Family Medical History: Cancer, Dementia Additional Family Medical History / Comment(s): AT AGE 84-LUNG CANCER. Mother Family Medical History: Coronary Artery Disease (CAD) Additional Family Medical History / Comment(s): AT AGE 73. Brother(s) Family Medical History: Cancer Medications and Allergies Home Medications Medication Instructions Recorded Confirmed Type Isosorbide Mononitrate [Imdur] 30 mg PO DAILY 11/22/13 01/29/23 History Metoprolol Tartrate [Lopressor] 50 mg PO BID 01/19/17 01/29/23 History Omeprazole 20 mg PO DAILY 01/19/17 01/29/23 History traZODone HCL 50 mg PO HS 02/26/19 01/29/23 History Hydroxychloroquine Sulfate 200 mg PO BID 10/09/22 01/29/23 History [Plaquenil] Ascorbic Acid [Vitamin C] 1,000 mg PO DAILY 11/17/22 01/29/23 History Sennosides [Senokot] 8.6 mg PO BID PRN 11/17/22 01/29/23 History Atorvastatin [Lipitor] 80 mg PO HS 12/25/22 01/29/23 History Citalopram Hydrobromide [CeleXA] 40 mg PO DAILY 12/25/22 01/29/23 History HYDROcodone/APAP 7.5-325MG [[place] 1 tab PO Q4H PRN 12/25/22 01/29/23 History 7.5-325] lisinopriL [Zestril] 5 mg PO DAILY 12/25/22 01/29/23 History Magnesium Oxide [Mag-Ox] 400 mg PO DAILY #60 tablet 12/28/22 01/29/23 Rx Cholecalciferol [Vitamin D3 (125 125 mcg PO DAILY 01/29/23 01/29/23 History Mcg = 5000 Iu)] Furosemide [Lasix] 20 mg PO Q48H 01/29/23 01/29/23 History Allergies Allergy/AdvReac Type Severity Reaction Status Date / Time codeine AdvReac Nausea & Verified 01/29/23 21:47 Vomiting Physical Exam Vitals: Vital Signs Temp Pulse Pulse Resp BP BP Pulse Ox 01/30/23 11:39 97.7 F 54 L 22 124/79 98 01/30/23 09:14 57 L 20 142/57 01/30/23 06:00 55 L 15 168/71 97 01/30/23 04:00 50 L 16 152/58 95 01/30/23 02:00 49 L 19 140/66 100 01/30/23 00:00 51 L 15 142/55 98 01/29/23 23:23 56 L 16 142/55 94 L 01/29/23 22:55 98.2 F 01/29/23 22:00 61 19 161/68 98 01/29/23 21:00 57 L 22 157/75 98 01/29/23 20:21 58 L 18 99 01/29/23 17:49 58 L 18 152/73 94 L 01/29/23 16:12 97.9 F 57 L 18 140/62 95 GENERAL EXAM: Alert, pleasant 67-year-old female, on 2 L nasal cannula, fairly comfortable in no apparent distress. HEAD: Normocephalic. EYES: Normal reaction of pupils, equal size. NOSE: Clear with pink turbinates. THROAT: No erythema or exudates. NECK: No masses, no JVD. CHEST: No chest wall deformity. LUNGS: Equal air entry with diminished breath sounds in the right base. CVS: S1 and S2 normal with no audible murmur, regular rhythm. ABDOMEN: No hepatosplenomegaly, normal bowel sounds, no guarding or rigidity. SPINE: No scoliosis or deformity SKIN: No rashes CENTRAL NERVOUS SYSTEM: No focal deficits, tone is normal in all 4 extremities. EXTREMITIES: There is no peripheral edema. No clubbing, no cyanosis. Peripheral pulses are intact. Results - Laboratory Findings CBC and BMP: 01/30/23 04:59 01/30/23 11:01 PT/INR, D-dimer PT 16.7 sec (10.0-12.5) H 01/30/23 11:01 INR 1.6 (<1.2) H 01/30/23 11:01 Abnormal lab findings: Abnormal Labs 01/29/23 01/29/23 01/29/23 16:48 16:48 16:48 RBC Hgb Hct RDW PT INR Sodium Potassium Chloride 108 H Carbon Dioxide 16 L BUN 21 H Glucose POC Glucose (mg/dL) Plasma Lactic Acid Anand 4.0 H* AST 1356 H ALT 1067 H Alkaline Phosphatase 232 H Lactate Dehydrogenase Troponin I Total Protein 6.0 L Albumin 3.2 L Urine Appearance Turbid H Urine Protein 3+ H Urine Blood Large H Ur Leukocyte Esterase Large H Urine RBC 26 H Urine WBC >182 H Urine Bacteria Few H Hep C IgG Ab 01/29/23 01/29/23 01/29/23 17:27 17:27 21:31 RBC 3.53 L Hgb 10.1 L D Hct 31.4 L RDW 17.1 H PT 17.7 H INR 1.7 H Sodium Potassium Chloride Carbon Dioxide BUN Glucose POC Glucose (mg/dL) Plasma Lactic Acid Anand 2.1 H* AST ALT Alkaline Phosphatase Lactate Dehydrogenase Troponin I Total Protein Albumin Urine Appearance Urine Protein Urine Blood Ur Leukocyte Esterase Urine RBC Urine WBC Urine Bacteria Hep C IgG Ab 01/30/23 01/30/23 01/30/23 00:32 00:32 04:59 RBC Hgb Hct RDW PT INR Sodium Potassium Chloride Carbon Dioxide BUN Glucose POC Glucose (mg/dL) Plasma Lactic Acid Anand AST ALT Alkaline Phosphatase Lactate Dehydrogenase Troponin I 0.035 H* 0.038 H* Total Protein Albumin Urine Appearance Urine Protein Urine Blood Ur Leukocyte Esterase Urine RBC Urine WBC Urine Bacteria Hep C IgG Ab Reactive A 01/30/23 01/30/23 01/30/23 04:59 04:59 11:01 RBC 3.54 L Hgb 9.9 L Hct 31.7 L RDW 16.9 H PT 16.7 H INR 1.6 H Sodium Potassium 3.4 L Chloride Carbon Dioxide 21 L BUN 25 H Glucose 55 L POC Glucose (mg/dL) Plasma Lactic Acid Anand AST ALT Alkaline Phosphatase Lactate Dehydrogenase Troponin I Total Protein Albumin Urine Appearance Urine Protein Urine Blood Ur Leukocyte Esterase Urine RBC Urine WBC Urine Bacteria Hep C IgG Ab 01/30/23 01/30/23 01/30/23 11:01 11:01 11:37 RBC Hgb Hct RDW PT INR Sodium 136 L Potassium 3.4 L Chloride Carbon Dioxide BUN 27 H Glucose 103 H POC Glucose (mg/dL) 115 H Plasma Lactic Acid Anand AST 1223 H ALT 1254 H Alkaline Phosphatase 204 H Lactate Dehydrogenase 1244 H Troponin I Total Protein 5.5 L 5.6 L Albumin 2.9 L Urine Appearance Urine Protein Urine Blood Ur Leukocyte Esterase Urine RBC Urine WBC Urine Bacteria Hep C IgG Ab - Diagnostic Findings Chest x-ray: image reviewed Assessment and Plan Assessment: Acute hypoxemic respiratory failure secondary to a moderate to large right-sided pleural effusion. Status post thoracentesis with 1 L of straw-colored fluid removed. Fluid analysis and cytology pending Abdominal discomfort patient found to have significantly elevated liver enzymes. Liver ultrasound revealed no acute process Hepatitis C Coagulopathy secondary to above Urinary tract infection, culture pending Acute on chronic anemia Rheumatoid arthritis maintained on hydroxychloroquine in the outpatient setting Hyperlipidemia maintained on Lipitor in the outpatient setting Recent MRSA bacteremia secondary to a left knee wound and had been on daptomycin in the outpatient setting History of coronary artery disease with previous coronary artery bypass grafting and previous stent placement History of moderate aortic stenosis History of rheumatoid arthritis interstitial lung disease Plan: The patient was seen and evaluated Chest x-ray, labs and medications reviewed She did undergo a right-sided thoracentesis today 1 L of straw-colored fluid removed Fluid analysis and cytology pending Hold hydroxychloroquine Hold Lipitor Recommend GI consult Continue ceftriaxone Lovenox for DVT prophylaxis We will continue to follow and make further recommendations based on her clinical status I have personally seen and examined the patient, performed the documentation and the assessment and plan as written. Number of minutes spent on the visit: 20.
--- NOTE | 2023-01-30 16:58 | P.CRDCN ---
History of Present Illness Consult date: 01/30/23 Chief complaint: Shortness of breath History of present illness: The patient is a pleasant 67-year-old female patient who is known to her service from before with a past medical history significant for coronary artery disease status post CABG with TINOCO into LAD and EG to OM and SVG to RCA and stenting of the LAD distal to the anastomosis as well as heart failure with preserved ejection fraction and also carotid atherosclerosis and lower extremities PAD as well as valvular heart disease with aortic stenosis as well as multiple comorbid conditions. She presented to the hospital with progressive exertional dyspnea started about 24 hours for 48 hours before. No symptoms of chest pain or chest discomfort and no lower extremities edema and no change in the weight. The patient is supposed to be on oral diuretics but clearly she has not been compliant with her medications. She underwent further workup including chest x- ray and that showed large pleural effusion and she underwent thoracentesis by the pulmonary/critical care team. The NT proBNP came in to be severely elevated. The chest x-ray beside that showed pulmonary vascular congestion. The EKG showed sinus mechanism with diffuse nonspecific ST and T wave abnormalities. The patient was seen by our service assembly with shortness of breath and mildly abnormal troponin. She underwent further investigation including an echocardiogram and that revealed preserved LV systolic function was moderate aortic stenosis which is known from before. Recent heart catheterization showed severe triple vessel coronary artery disease with patent TINOCO to LAD and patent stent distal to the anastomosis as well as patent SVG to LCx is patent SVG to RCA. The examination is remarkable for diminished breathing sounds bilaterally with a regular rate and rhythm significant murmur at the right and left upper sternal border consistent with aortic stenosis murmur and decreased in the intensity of S2. No lower extremity edema noted. Assessment Acute hypoxic respiratory failure, multi-factorial related to heart failure, pneumonia, and COPD Heart failure exacerbation with a preserved ejection fraction in a patient with at least moderate aortic stenosis Large right pleural effusion status post pleurocentesis Coronary artery disease as described above Valvular heart disease as described above Multiple comorbid conditions Noncompliance with medication Plan Restart the patient back on Lasix IV Monitor the kidney function and electrolytes She was advised to be compliant with her medications No need to repeat the echocardiogram Continue monitor the kidney function and electrolytes Follow-up with the patient Past Medical History Past Medical History: Coronary Artery Disease (CAD), Cancer, Chest Pain / Angina, COPD, CVA/TIA, GERD/Reflux, Hyperlipidemia, Hypertension, Osteoarthritis (OA), Rheumatoid Arthritis (RA), Skin Disorder, Vascular Disorder Additional Past Medical History / Comment(s): chronic back pain., scoliosis., heart murmur, SOB w/activity, hx of gastric ulcer, cervical cancer, eczema, TIA-no residuals., frequent diarrhea., hepatitis C with tx,hamlet cataracts, left knee replaced recently-not healing well per pt, lot of pain, recent cataract surg. History of Any Multi-Drug Resistant Organisms: MRSA Date of last positivie culture/infection: 12/11/22 MDRO Source:: Left Knee/Blood Past Surgical History: Section, Cholecystectomy, Coronary Bypass/CABG, Heart Catheterization, Heart Catheterization With Stent, Joint Replacement, Orthopedic Surgery, Tubal Ligation Additional Past Surgical History / Comment(s): triple CABG 2008, ORIF right leg, ., heart cath with stent 2013(Mph)., heart cath no stent (2019). left knee replaced 03-15-22, tip fib screws Past Anesthesia/Blood Transfusion Reactions: No Reported Reaction Date of Last Stent Placement:: 2013 Past Psychological History: Anxiety, Depression Smoking Status: Former smoker Past Alcohol Use History: None Reported Past Drug Use History: None Reported - Past Family History Father Family Medical History: Cancer, Dementia Additional Family Medical History / Comment(s): AT AGE 84-LUNG CANCER. Mother Family Medical History: Coronary Artery Disease (CAD) Additional Family Medical History / Comment(s): AT AGE 73. Brother(s) Family Medical History: Cancer Medications and Allergies Home Medications Medication Instructions Recorded Confirmed Type Isosorbide Mononitrate [Imdur] 30 mg PO DAILY 11/22/13 01/29/23 History Metoprolol Tartrate [Lopressor] 50 mg PO BID 01/19/17 01/29/23 History Omeprazole 20 mg PO DAILY 01/19/17 01/29/23 History traZODone HCL 50 mg PO HS 02/26/19 01/29/23 History Hydroxychloroquine Sulfate 200 mg PO BID 10/09/22 01/29/23 History [Plaquenil] Ascorbic Acid [Vitamin C] 1,000 mg PO DAILY 11/17/22 01/29/23 History Sennosides [Senokot] 8.6 mg PO BID PRN 11/17/22 01/29/23 History Atorvastatin [Lipitor] 80 mg PO HS 12/25/22 01/29/23 History Citalopram Hydrobromide [CeleXA] 40 mg PO DAILY 12/25/22 01/29/23 History HYDROcodone/APAP 7.5-325MG [[place] 1 tab PO Q4H PRN 12/25/22 01/29/23 History 7.5-325] lisinopriL [Zestril] 5 mg PO DAILY 12/25/22 01/29/23 History Magnesium Oxide [Mag-Ox] 400 mg PO DAILY #60 tablet 12/28/22 01/29/23 Rx Cholecalciferol [Vitamin D3 (125 125 mcg PO DAILY 01/29/23 01/29/23 History Mcg = 5000 Iu)] Furosemide [Lasix] 20 mg PO Q48H 01/29/23 01/29/23 History Allergies Allergy/AdvReac Type Severity Reaction Status Date / Time codeine AdvReac Nausea & Verified 01/29/23 21:47 Vomiting Physical Exam Vitals: Vital Signs Temp Pulse Pulse Resp BP BP Pulse Ox 01/30/23 11:39 97.7 F 54 L 22 124/79 98 01/30/23 09:14 57 L 20 142/57 01/30/23 06:00 55 L 15 168/71 97 01/30/23 04:00 50 L 16 152/58 95 01/30/23 02:00 49 L 19 140/66 100 01/30/23 00:00 51 L 15 142/55 98 01/29/23 23:23 56 L 16 142/55 94 L 01/29/23 22:55 98.2 F 01/29/23 22:00 61 19 161/68 98 01/29/23 21:00 57 L 22 157/75 98 01/29/23 20:21 58 L 18 99 01/29/23 17:49 58 L 18 152/73 94 L Results 01/30/23 04:59 01/30/23 11:01 Cardiac Enzymes 01/29/23 01/29/23 01/30/23 Range/Units 16:48 16:48 00:32 AST 1356 H (14-36) U/L Lactate Dehydrogenase (120-246) U/L Troponin I 0.030 0.035 H* (0.000-0.034) ng/mL 01/30/23 01/30/23 01/30/23 Range/Units 04:59 11:01 11:01 AST 1223 H (14-36) U/L Lactate Dehydrogenase 1244 H (120-246) U/L Troponin I 0.038 H* (0.000-0.034) ng/mL Coagulation 01/29/23 01/30/23 Range/Units 17:27 11:01 PT 17.7 H 16.7 H (10.0-12.5) sec CBC 01/29/23 01/30/23 Range/Units 17:27 04:59 WBC 9.9 8.4 (3.8-10.6) k/uL RBC 3.53 L 3.54 L (3.80-5.40) m/uL Hgb 10.1 L D 9.9 L (11.4-16.0) gm/dL Hct 31.4 L 31.7 L (34.0-46.0) % Plt Count 231 238 (150-450) k/uL Comprehensive Metabolic Panel 01/29/23 01/30/23 01/30/23 Range/Units 16:48 04:59 11:01 Sodium 137 138 136 L (137-145) mmol/L Potassium 4.1 3.4 L 3.4 L (3.5-5.1) mmol/L Chloride 108 H 107 106 (98-107) mmol/L Carbon Dioxide 16 L 21 L 23 (22-30) mmol/L BUN 21 H 25 H 27 H (7-17) mg/dL Creatinine 0.94 0.99 0.95 (0.52-1.04) mg/dL Glucose 76 55 L 103 H (74-99) mg/dL Calcium 8.8 8.6 8.4 (8.4-10.2) mg/dL AST 1356 H 1223 H (14-36) U/L ALT 1067 H 1254 H (4-34) U/L Alkaline Phosphatase 232 H 204 H (38-126) U/L Total Protein 6.0 L 5.5 L (6.3-8.2) g/dL Albumin 3.2 L 2.9 L (3.5-5.0) g/dL 01/30/23 Range/Units 11:01 Sodium (137-145) mmol/L Potassium (3.5-5.1) mmol/L Chloride (98-107) mmol/L Carbon Dioxide (22-30) mmol/L BUN (7-17) mg/dL Creatinine (0.52-1.04) mg/dL Glucose (74-99) mg/dL Calcium (8.4-10.2) mg/dL AST (14-36) U/L ALT (4-34) U/L Alkaline Phosphatase (38-126) U/L Total Protein 5.6 L (6.3-8.2) g/dL Albumin (3.5-5.0) g/dL Current Medications Generic Name Dose Route Start Last Admin Trade Name Freq PRN Reason Stop Dose Admin Albuterol/Ipratropium 3 ml 01/29/23 19:43 Ipratropium-Albuterol 3 Ml Neb INHALATION RT-Q4H PRN shortness of breath Azithromycin 500 mg 01/30/23 09:00 01/30/23 09:10 Azithromycin 500 Mg Tab PO 02/01/23 09:01 500 mg DAILY BLADIMIR Administration Protocol Dextrose/Water 25 ml 01/30/23 09:17 Dextrose 50% Syringe 50 Ml IVP PER PROTOCOL PRN Hypoglycemia Protocol Dextrose/Water 50 ml 01/30/23 09:17 Dextrose 50% Syringe 50 Ml IVP PER PROTOCOL PRN Hypoglycemia Protocol Enoxaparin Sodium 40 mg 01/31/23 09:00 Enoxaparin 40 Mg/0.4 Ml Syringe SQ DAILY [facility] Ceftriaxone Sodium 2 gm/ 50 mls @ 100 mls/hr 01/30/23 21:00 Sodium Chloride IVPB Q24H BLADIMIR Protocol Lisinopril 5 mg 01/30/23 09:00 01/30/23 09:09 Lisinopril 5 Mg Tab PO 5 mg DAILY BLADIMIR Administration Magnesium Oxide 400 mg 01/30/23 09:00 01/30/23 09:10 Magnesium Oxide 400 Mg Tab PO 400 mg DAILY BLADIMIR Administration Metoprolol Tartrate 50 mg 01/29/23 22:00 01/30/23 11:40 Metoprolol Tartrate 50 Mg Tab PO Not Given BID BLADIMIR Miscellaneous Information 1 each 01/29/23 19:43 Pneumonia Protocol Utilized 1 Each Misc PO ONCE PRN Per Protocol Morphine Sulfate 4 mg 01/30/23 16:03 Morphine Sulfate 4 Mg/Ml Syringe IV Q4HR PRN Severe Pain (Scale 7 to 10) Naloxone HCl 0.2 mg 01/29/23 21:37 Naloxone 0.4 Mg/Ml 1 Ml Vial IV Q2M PRN Opioid Reversal Pantoprazole Sodium 40 mg 01/30/23 09:00 01/30/23 09:10 Pantoprazole 40 Mg Tablet PO 40 mg DAILY BLADIMIR Administration Trazodone HCl 50 mg 01/29/23 22:00 01/29/23 22:45 Trazodone Hcl 50 Mg Tab PO 50 mg HS BLADIMIR Administration 01/30/23 04:59 01/30/23 11:01
[2023-01-30] MEDS: traZODone HCL 50 MG TAB PO SCH (20:42)
[2023-01-30 23:08] LABS: LDH, Body Fluid Source Other; T. Protein, Body Fluid Source Other; Total Protein, Body Fluid 1580 mg/dL
[2023-01-30] MEDS: MORPHINE SULFATE 4 MG/ML SYRINGE IV PRN (23:13)
[2023-01-31 01:06] LABS: Appearance,BF Slightly Hazy (Clear)
[2023-01-31 03:30] LABS: Glucose,Whole Blood 149 mg/dL (70-110)
[2023-01-31] MEDS: MORPHINE SULFATE 4 MG/ML SYRINGE IV PRN ×3 (04:11→20:09)
[2023-01-31 07:18] LABS: Glucose,Whole Blood 118 mg/dL (70-110)
[2023-01-31] MEDS: METOPROLOL TARTRATE 50 MG TAB PO SCH ×2 (07:35→20:18)
[2023-01-31] MEDS: lisinopriL 5 MG TAB PO SCH (07:35)
[2023-01-31] MEDS: MAGNESIUM OXIDE 400 MG TAB PO SCH (07:36)
[2023-01-31] MEDS: AZITHROMYCIN 500 MG TAB PO SCH (07:36)
[2023-01-31] MEDS: ENOXAPARIN 40 MG/0.4 ML SYRINGE SQ SCH (07:36)
[2023-01-31] MEDS: PANTOPRAZOLE 40 MG TABLET PO SCH (07:36)
[2023-01-31 09:47] LABS: Anisocytosis Slight; Basophils % (A) 0 %; Eosinophils # (A) 0.1 k/uL (0-0.7); Eosinophils % (A) 2 %; HGB 9.4 gm/dL (11.4-16.0); Hypochromasia Marked; Lymphocytes # (A) 0.9 k/uL (1.0-4.8); Lymphocytes % (A) 18 %; MCH 27.3 pg (25.0-35.0); MCHC 30.3 g/dL (31.0-37.0); MCV 90.2 fL (80.0-100.0); Mean Platelet Volume 8.5; Monocytes # (A) 0.4 k/uL (0-1.0); Monocytes % (A) 8 %; Neutrophils # (A) 3.7 k/uL (1.3-7.7); Neutrophils % (A) 70 %; Platelet Count 188 k/uL (150-450); Poikilocytosis Slight; RBC 3.44 m/uL (3.80-5.40); RDW 16.6 % (11.5-15.5); WBC 5.3 k/uL (3.8-10.6)
[2023-01-31 10:06] LABS: ALT 726 U/L (4-34); AST 280 U/L (14-36); African American GFR (CKD) 70 (>60 ml/min/1.73 sqM); Albumin 2.5 g/dL (3.5-5.0); Alkaline Phosphatase 162 U/L (38-126); Anion Gap 8 mmol/L; Blood Urea Nitrogen 26 mg/dL (7-17); Calcium 7.8 mg/dL (8.4-10.2); Carbon Dioxide 26 mmol/L (22-30); Chloride 103 mmol/L (98-107); Glucose 122 mg/dL (74-99); Magnesium 1.5 mg/dL (1.6-2.3); Non-African American GFR(CKD) 61 (>60 ml/min/1.73 sqM); Potassium 3.2 mmol/L (3.5-5.1); Sodium 137 mmol/L (137-145); Total Bilirubin 0.3 mg/dL (0.2-1.3)
[2023-01-31] MEDS ORDERED: POTASSIUM CHLORIDE ER 20 MEQ TAB.ER PO STA (10:08)
[2023-01-31] MEDS: MAGNESIUM SULFATE-D5W PMX 1 GM in DEXTROSE/WATER 1 100ML.BAG IVPB SCH ×3 (10:21→13:16)
[2023-01-31 11:01] LABS: Glucose,Whole Blood 169 mg/dL (70-110)
--- NOTE | 2023-01-31 11:57 | P.PN ---
Subjective Progress Note Date: 01/31/23 Principal diagnosis: Respiratory failure. This is a pleasant 67-year-old female patient with a known history of coronary artery disease with previous coronary artery bypass grafting and previous stenting, chronic back pain, chronic obstructive pulmonary disease, CVA/TIA, hyperlipidemia, hypertension, rheumatoid arthritis, former smoker who presented to the emergency room yesterday with complaints of increasing shortness of breath and some abdominal discomfort. X-ray revealed large right middle and lower lobe infiltrates with pleural effusion. Mild cardiomegaly. Abdominal x- ray revealed nonspecific bowel gas pattern. Computed tomography scan of the abdomen and pelvis revealed no evidence of inflammatory obstructive process. There is heterogenous liver without focal mass. Again noted moderate right pleural effusion. Liver ultrasound revealed no evidence of an acute process. She was found to have significantly elevated liver enzymes with an AST of 1356 and an ALT of 1067 and alk phos of 232. Troponins were 0.03 and 0.038. ProBNP 50,900. Urinalysis with 3+ proteins large blood and large leukoesterase and high WBCs and few bacteria. Hepatitis C screen is reactive. COVID-19 screen negative. White count 8.5. Hemoglobin 9.9. INR 1.6. Sodium 136. Potassium 3.4. Bicarb 23. BUN 27. Creatinine 0.9. Glucose 115. The patient was seen in consultation in the emergency department. Bedside ultrasound revealed a significant pocket of free-flowing fluid in the right chest. She did undergo a thoracentesis with 1 L of straw-colored fluid removed. Follow-up chest x-ray showed significant improvement in right lung aeration post thoracentesis. No ev idence of pneumothorax. She remains awake and alert in no acute distress. She is maintaining O2 saturations in the 90s on 2 L nasal cannula. Afebrile. Hemodynamically stable. Progress note dated 01/31/2023. This is a 67-year-old female seen today in room 353. The patient has a history of CAD, with previous bypass surgery, and stenting, as well as COPD, TIA, hyperlipidemia, hypertension, and rheumatoid arthritis. The patient was admitted with a diagnosis of right middle lobe and lower lobe infiltrates, with pleural effusion. Currently, she's on room air. She's not receiving any IV flu ids. We will check a pro-calcitonin level on her. She did have a right-sided thoracentesis performed on January 30, with 1 L being removed. Also, it clear on auscultation, the patient has severe aortic stenosis. An echocardiogram was ordered. White count 5.3, hemoglobin 9.4, hematocrit 31, and platelet count 188,000. Sodium 137, potassium 3.2, chlorides 103, CO2 26, BUN 26, and creatinine 0.98. AST 280. ALT 726. Albumin is 2.5. Chest x-ray shows improved pleural effusion on the right, status post thoracentesis. Objective - Vital Signs Vital signs: Vital Signs Temp 98.5 F 01/31/23 07:32 Pulse 65 01/31/23 07:32 Resp 16 01/31/23 07:32 BP 150/65 01/31/23 07:32 Pulse Ox 93 L 01/31/23 10:15 FiO2 Intake & Output 01/30/23 01/31/23 01/31/23 18:59 06:59 18:59 Output Total 1400 Balance -1400 Weight 49.5 kg Output: Urine 1400 Other: Voiding Method External Catheter # Voids 1 - Exam No acute distress, oriented 3. No respiratory distress. Currently on room air. HEENT examination is grossly unremarkable. Mucous membranes are moist. No oral lesions. Neck supple. Full range of motion. No adenopathy thyromegaly or neck vein distention. Cardiovascular examination reveals regular rhythm rate. S1-S2 normal. No S3 or S4. A loud systolic murmur consistent with aortic stenosis is noted. Heart rate is 65 bpm. Lungs reveal mostly clear breath sounds. A few scattered rhonchi. No wheezes or crackles. Saturations are between 93% and 96% on room air. Abdomen soft bowel sounds are heard. No masses or tenderness. Extremities are intact. No cyanosis clubbing or edema. Skin is without rash or lesion. Neurologic examination is brief but nonfocal. - Labs CBC & Chem 7: 01/31/23 09:11 01/31/23 09:11 Labs: Abnormal Lab Results - Last 24 Hours (Table) 01/30/23 01/30/23 01/30/23 Range/Units 09:30 11:01 11:01 RBC (3.80-5.40) m/uL Hgb (11.4-16.0) gm/dL Hct (34.0-46.0) % MCHC (31.0-37.0) g/dL RDW (11.5-15.5) % Lymphocytes # (1.0-4.8) k/uL Sodium 136 L (137-145) mmol/L Potassium 3.4 L (3.5-5.1) mmol/L BUN 27 H (7-17) mg/dL Glucose 103 H (74-99) mg/dL POC Glucose (mg/dL) (70-110) mg/dL Calcium (8.4-10.2) mg/dL Magnesium (1.6-2.3) mg/dL AST 1223 H (14-36) U/L ALT 1254 H (4-34) U/L Alkaline Phosphatase 204 H (38-126) U/L Lactate Dehydrogenase 1244 H (120-246) U/L Total Protein 5.5 L 5.6 L (6.3-8.2) g/dL Albumin 2.9 L (3.5-5.0) g/dL Fluid Appearance Slightly Hazy A (Clear) 01/31/23 01/31/23 01/31/23 Range/Units 03:28 07:16 09:11 RBC 3.44 L (3.80-5.40) m/uL Hgb 9.4 L (11.4-16.0) gm/dL Hct 31.0 L (34.0-46.0) % MCHC 30.3 L (31.0-37.0) g/dL RDW 16.6 H (11.5-15.5) % Lymphocytes # 0.9 L (1.0-4.8) k/uL Sodium (137-145) mmol/L Potassium (3.5-5.1) mmol/L BUN (7-17) mg/dL Glucose (74-99) mg/dL POC Glucose (mg/dL) 149 H 118 H (70-110) mg/dL Calcium (8.4-10.2) mg/dL Magnesium (1.6-2.3) mg/dL AST (14-36) U/L ALT (4-34) U/L Alkaline Phosphatase (38-126) U/L Lactate Dehydrogenase (120-246) U/L Total Protein (6.3-8.2) g/dL Albumin (3.5-5.0) g/dL Fluid Appearance (Clear) 01/31/23 01/31/23 Range/Units 09:11 10:59 RBC (3.80-5.40) m/uL Hgb (11.4-16.0) gm/dL Hct (34.0-46.0) % MCHC (31.0-37.0) g/dL RDW (11.5-15.5) % Lymphocytes # (1.0-4.8) k/uL Sodium (137-145) mmol/L Potassium 3.2 L (3.5-5.1) mmol/L BUN 26 H (7-17) mg/dL Glucose 122 H (74-99) mg/dL POC Glucose (mg/dL) 169 H (70-110) mg/dL Calcium 7.8 L (8.4-10.2) mg/dL Magnesium 1.5 L (1.6-2.3) mg/dL AST 280 H (14-36) U/L ALT 726 H (4-34) U/L Alkaline Phosphatase 162 H (38-126) U/L Lactate Dehydrogenase (120-246) U/L Total Protein 5.0 L (6.3-8.2) g/dL Albumin 2.5 L (3.5-5.0) g/dL Fluid Appearance (Clear) Assessment and Plan Assessment: Acute hypoxemic respiratory failure secondary to a moderate to large right-sided pleural effusion. Status post thoracentesis with 1 L of straw-colored fluid removed. Abdominal discomfort patient found to have significantly elevated liver enzymes. Liver ultrasound revealed no acute process. Hepatitis C. Coagulopathy secondary to above. Urinary tract infection, culture pending. Acute on chronic anemia. Rheumatoid arthritis maintained on hydroxychloroquine. Hyperlipidemia. Recent MRSA bacteremia secondary to a left knee wound. History of coronary artery disease with previous coronary artery bypass grafting and previous stent placement. History of moderate aortic stenosis. History of rheumatoid arthritis associated interstitial lung disease. Plan: Plan dated 01/31/2023. The patient is seen today in room 353. The patient had a right-sided thoracentesis, yesterday, with 1 L being removed. Her cardiac auscultation reveals a harsh murmur consistent with aortic stenosis. We will check a pro- calcitonin level. The patient's currently on room air and not receiving any IV fluids. Labs, x-rays, medications are reviewed. The patient's overall prognosis remains guarded. We will continue to follow make recommendations along the way. Her elevated liver enzymes could very well be a result of congestive hepatopathy. Time with Patient: Less than 30
--- NOTE | 2023-01-31 13:12 | P.CONS ---
History of Present Illness - Reason for Consult Consult date: 01/31/23 Acute liver failure Requesting physician: Jean Claude Lopez - Chief Complaint Shortness of breath - History of Present Illness This a pleasant 67-year-old female with a past medical history including coronary artery disease status post bypass, COPD, CVA, recent GI bleed and hepa titis C treated a few years ago. Patient was admitted for shortness of breath, congestive heart failure and large right pleural effusion status post thoracentesis with the thousand milliliters removed. Patient was noted on admission to have significantly elevated LFTs. She denies any previous known history of liver cirrhosis. She does not follow anybody for her hepatitis C. On admission patient was acidotic, BNP 50,900, total bilirubin was 1.3. AST 1356 AL T 1067 alkaline phosphatase 232 lipase 111. Patient denies any abdominal pain. Does state that she has been on vancomycin in the outpatient setting for quite some time for an infection in her knee. Discontinued it about one week ago. Currently shortness of breath has improved, she denies any abdominal pain, nausea or vomiting. LFTs improved total bilirubin 0.3 AST 280 ALT 726 alkaline phosphatase 162. Patient's hepatitis C antibody is reactive. Salicylate was normal as well as acetaminophen and serum alcohol level. Review of Systems REVIEW OF SYSTEMS: CARDIOPULMONARY: No chest pain, patient had shortness of breath now improved status post thoracentesis. Gastrointestinal: No abdominal pain. No nausea or vomiting. No hematemesis, coffee-ground emesis. No rectal bleeding, or melena. GENITOURINARY: No dysuria or hematuria. MUSCULOSKELETAL: Reports normal range of motion., Joint pain, recent knee surgery and infection. SKIN: No rashes. No jaundice. ENDOCRINE: No chills, fevers. No excessive weight gain or loss. No polydipsia or polyuria. PSYCHIATRIC: Unremarkable. NEUROLOGY: No change in mental status. Denies dizziness, headache. ENT: Vision unremarkable. CONSTITUTIONAL: No recent weight loss. No fever, chills, night sweats. Past Medical History Past Medical History: Coronary Artery Disease (CAD), Cancer, Chest Pain / Angina, COPD, CVA/TIA, GERD/Reflux, Hyperlipidemia, Hypertension, Osteoarthritis (OA), Rheumatoid Arthritis (RA), Skin Disorder, Vascular Disorder Additional Past Medical History / Comment(s): chronic back pain., scoliosis., heart murmur, SOB w/activity, hx of gastric ulcer, cervical cancer, eczema, TIA-no residuals., frequent diarrhea., hepatitis C with tx,hamlet cataracts, left knee replaced recently-not healing well per pt, lot of pain, recent cataract surg. History of Any Multi-Drug Resistant Organisms: MRSA Year Discovered:: 12/11/22 MDRO Source:: Left Knee/Blood Past Surgical History: Section, Cholecystectomy, Coronary Bypass/CABG, Heart Catheterization, Heart Catheterization With Stent, Joint Replacement, Orthopedic Surgery, Tubal Ligation Additional Past Surgical History / Comment(s): triple CABG 2008, ORIF right leg, ., heart cath with stent 2013(Mph)., heart cath no stent (2019). left knee replaced 03-15-22, tip fib screws Past Anesthesia/Blood Transfusion Reactions: No Reported Reaction Date of Last Stent Placement:: 2013 Past Psychological History: Anxiety, Depression Smoking Status: Former smoker Past Alcohol Use History: None Reported Additional Past Alcohol Use History / Comment(s): started smoking age 18, past hx of 1ppd Past Drug Use History: None Reported - Past Family History Father Family Medical History: Cancer, Dementia Additional Family Medical History / Comment(s): AT AGE 84-LUNG CANCER. Mother Family Medical History: Coronary Artery Disease (CAD) Additional Family Medical History / Comment(s): AT AGE 73. Brother(s) Family Medical History: Cancer Medications and Allergies Home Medications Medication Instructions Recorded Confirmed Type Isosorbide Mononitrate [Imdur] 30 mg PO DAILY 11/22/13 01/29/23 History Metoprolol Tartrate [Lopressor] 50 mg PO BID 01/19/17 01/29/23 History Omeprazole 20 mg PO DAILY 01/19/17 01/29/23 History traZODone HCL 50 mg PO HS 02/26/19 01/29/23 History Hydroxychloroquine Sulfate 200 mg PO BID 10/09/22 01/29/23 History [Plaquenil] Ascorbic Acid [Vitamin C] 1,000 mg PO DAILY 11/17/22 01/29/23 History Sennosides [Senokot] 8.6 mg PO BID PRN 11/17/22 01/29/23 History Atorvastatin [Lipitor] 80 mg PO HS 12/25/22 01/29/23 History Citalopram Hydrobromide [CeleXA] 40 mg PO DAILY 12/25/22 01/29/23 History HYDROcodone/APAP 7.5-325MG [[place] 1 tab PO Q4H PRN 12/25/22 01/29/23 History 7.5-325] lisinopriL [Zestril] 5 mg PO DAILY 12/25/22 01/29/23 History Magnesium Oxide [Mag-Ox] 400 mg PO DAILY #60 tablet 12/28/22 01/29/23 Rx Cholecalciferol [Vitamin D3 (125 125 mcg PO DAILY 01/29/23 01/29/23 History Mcg = 5000 Iu)] Furosemide [Lasix] 20 mg PO Q48H 01/29/23 01/29/23 History Allergies Allergy/AdvReac Type Severity Reaction Status Date / Time codeine AdvReac Nausea & Verified 01/29/23 21:47 Vomiting Physical Exam Vitals: Vital Signs Temp Pulse Resp BP Pulse Ox 01/31/23 10:15 93 L 01/31/23 07:32 98.5 F 65 16 150/65 93 L 01/31/23 04:00 60 18 120/64 96 01/31/23 00:00 98 F 57 L 20 147/67 95 01/30/23 17:28 97.9 F 64 20 120/76 95 01/30/23 11:39 97.7 F 54 L 22 124/79 98 Intake and Output 01/30/23 01/31/23 01/31/23 22:59 06:59 14:59 Output Total 1400 Balance -1400 Output: Urine 1400 Other: Voiding Method External Catheter # Voids 1 Weight 49.5 kg General appearance: The patient is alert, oriented, appears in no acute distress. HET: Head is normocephalic and atraumatic. Conjunctiva pink. Sclera anicteric. Neck: Supple without lymphadenopathy. Trachea midline. Heart: Regular. Lungs: Equal expansion, normal respiratory effort. Abdomen: Soft, nontender, nondistended with bowel sounds. No guarding or rigidity. Skin: No rashes. No jaundice. Extremities: Normal skin color and turgor. No pedal edema. Neurological: No focal deficits. Alert and oriented x3. Results CBC & Chem 7: 01/31/23 09:11 11/27/23 09:11 Labs: Abnormal Lab Results - Last 24 Hours (Table) 01/30/23 01/30/23 01/30/23 Range/Units 00:32 09:30 11:01 RBC (3.80-5.40) m/uL Hgb (11.4-16.0) gm/dL Hct (34.0-46.0) % MCHC (31.0-37.0) g/dL RDW (11.5-15.5) % Lymphocytes # (1.0-4.8) k/uL PT 16.7 H (10.0-12.5) sec INR 1.6 H (<1.2) Sodium (137-145) mmol/L Potassium (3.5-5.1) mmol/L BUN (7-17) mg/dL Glucose (74-99) mg/dL POC Glucose (mg/dL) (70-110) mg/dL Calcium (8.4-10.2) mg/dL Magnesium (1.6-2.3) mg/dL AST (14-36) U/L ALT (4-34) U/L Alkaline Phosphatase (38-126) U/L Lactate Dehydrogenase (120-246) U/L Total Protein (6.3-8.2) g/dL Albumin (3.5-5.0) g/dL Fluid Appearance Slightly Hazy A (Clear) Hep C IgG Ab Reactive A (Non-Reactive) 01/30/23 01/30/23 01/30/23 Range/Units 11:01 11:01 11:37 RBC (3.80-5.40) m/uL Hgb (11.4-16.0) gm/dL Hct (34.0-46.0) % MCHC (31.0-37.0) g/dL RDW (11.5-15.5) % Lymphocytes # (1.0-4.8) k/uL PT (10.0-12.5) sec INR (<1.2) Sodium 136 L (137-145) mmol/L Potassium 3.4 L (3.5-5.1) mmol/L BUN 27 H (7-17) mg/dL Glucose 103 H (74-99) mg/dL POC Glucose (mg/dL) 115 H (70-110) mg/dL Calcium (8.4-10.2) mg/dL Magnesium (1.6-2.3) mg/dL AST 1223 H (14-36) U/L ALT 1254 H (4-34) U/L Alkaline Phosphatase 204 H (38-126) U/L Lactate Dehydrogenase 1244 H (120-246) U/L Total Protein 5.5 L 5.6 L (6.3-8.2) g/dL Albumin 2.9 L (3.5-5.0) g/dL Fluid Appearance (Clear) Hep C IgG Ab (Non-Reactive) 01/31/23 01/31/23 01/31/23 Range/Units 03:28 07:16 09:11 RBC 3.44 L (3.80-5.40) m/uL Hgb 9.4 L (11.4-16.0) gm/dL Hct 31.0 L (34.0-46.0) % MCHC 30.3 L (31.0-37.0) g/dL RDW 16.6 H (11.5-15.5) % Lymphocytes # 0.9 L (1.0-4.8) k/uL PT (10.0-12.5) sec INR (<1.2) Sodium (137-145) mmol/L Potassium (3.5-5.1) mmol/L BUN (7-17) mg/dL Glucose (74-99) mg/dL POC Glucose (mg/dL) 149 H 118 H (70-110) mg/dL Calcium (8.4-10.2) mg/dL Magnesium (1.6-2.3) mg/dL AST (14-36) U/L ALT (4-34) U/L Alkaline Phosphatase (38-126) U/L Lactate Dehydrogenase (120-246) U/L Total Protein (6.3-8.2) g/dL Albumin (3.5-5.0) g/dL Fluid Appearance (Clear) Hep C IgG Ab (Non-Reactive) 01/31/23 Range/Units 09:11 RBC (3.80-5.40) m/uL Hgb (11.4-16.0) gm/dL Hct (34.0-46.0) % MCHC (31.0-37.0) g/dL RDW (11.5-15.5) % Lymphocytes # (1.0-4.8) k/uL PT (10.0-12.5) sec INR (<1.2) Sodium (137-145) mmol/L Potassium 3.2 L (3.5-5.1) mmol/L BUN 26 H (7-17) mg/dL Glucose 122 H (74-99) mg/dL POC Glucose (mg/dL) (70-110) mg/dL Calcium 7.8 L (8.4-10.2) mg/dL Magnesium 1.5 L (1.6-2.3) mg/dL AST 280 H (14-36) U/L ALT 726 H (4-34) U/L Alkaline Phosphatase 162 H (38-126) U/L Lactate Dehydrogenase (120-246) U/L Total Protein 5.0 L (6.3-8.2) g/dL Albumin 2.5 L (3.5-5.0) g/dL Fluid Appearance (Clear) Hep C IgG Ab (Non-Reactive) Comments: CT abdomen and pelvis with contrast reported no inflammatory obstructive process in the abdomen or pelvis. Heterogeneous liver without focal mass detected. Status post cholecystectomy without pathologic dilation of the biliary tree. Cardiomegaly with moderate right pleural effusion and reflux of contrast into the hepatic veins, consistent with right heart insufficiency. Right middle and lower lobe opacities, likely combination of atelectasis and pneumonia minimal atelectasis of the left lung base. Low attenuation/cystic 2.1 cm structure in the left pelvis, likely relates to the ovary. This could represent cyst or cystic neoplasm. Correlation with serum tumor markers an outpatient ultrasound recommended in this postmenopausal patient. [id number] amount of free pe lvic fluid, small amount of free abdominal fluid. Heavy arthrosclerotic calcification of the abdominal aorta and branches as above. No evidence of AAA Liver Ultrasound no evidence for acute process. Right pleural effusion. Liver within normal limits, did not appear heterogeneous as CT showed. Chest x-ray: Interval improvement in right lung aeration postthoracentesis. No identifiable pneumothorax. Assessment and Plan (1) Acute hepatitis Narrative/Plan: 67-year-old presenting for shortness of breath noted to be acidotic on admission, pleural effusion, possible pneumonia with the heart failure. Patient was noted to have significantly elevated LFTs on admission consistent with acute hepatitis likely from hypoperfusion secondary to congestive heart failure. Patient also recently on vancomycin for long-term infection in her knee which was discontinued about one week ago. Patient also possibly with some underlying liver disease related to hepatitis C which she states was treated a few years ago. LFTs are trending down lactic acidosis improved. Repeat total bilirubin 0.3 down from initial 1.3 AST 280 down from initial 1356 ALT 726 down from 1067 alkaline phosphatase 162 down from 232. There is no indication for any further workup at this time. Current Visit: Yes Status: Acute Code(s): B17.9 - ACUTE VIRAL HEPATITIS, UNSPECIFIED SNOMED Code(s): 20503116 (2) History of hepatitis C virus infection Current Visit: Yes Status: Acute Code(s): Z86.19 - PERSONAL HISTORY OF OTHER INFECTIOUS AND PARASITIC DISEASES SNOMED Code(s): 49813790584737 (3) Heart failure Current Visit: Yes Status: Acute Code(s): I50.9 - HEART FAILURE, UNSPECIFIED SNOMED Code(s): 54121411 (4) Elevated brain natriuretic peptide (BNP) level Current Visit: Yes Status: Acute Code(s): R79.89 - OTHER SPECIFIED ABNORMAL FINDINGS OF BLOOD CHEMISTRY SNOMED Code(s): 455153949 (5) Lactic acidosis Current Visit: Yes Status: Acute Code(s): E87.20 - ACIDOSIS, UNSPECIFIED SNOMED Code(s): 62321113 (6) Pleural effusion Current Visit: Yes Status: Acute Code(s): J90 - PLEURAL EFFUSION, NOT ELSEWHERE CLASSIFIED SNOMED Code(s): 30433256 (7) COPD (chronic obstructive pulmonary disease) Current Visit: No Status: Acute Code(s): J44.9 - CHRONIC OBSTRUCTIVE PULMONARY DISEASE, UNSPECIFIED SNOMED Code(s): 12421457 (8) Hx of CABG Current Visit: No Status: Acute Code(s): Z95.1 - PRESENCE OF AORTOCORONARY BYPASS GRAFT SNOMED Code(s): 261442597 Plan: 1. Continue symptomatic and supportive care 2. Repeat CMP daily 3. Avoid hepatotoxic medications 4. Recommend outpatient follow-up with gastroenterology 5. No further workup indicated by gastroenterology Thank you for this consultation, we'll continue to follow. Dr. Alexus Guevara I agree with the dictator's note, documented as a scribe by Renate Cee.
--- NOTE | 2023-01-31 14:04 | P.PN ---
Subjective Progress Note Date: 01/31/23 Hospital course: Patient is a pleasant 67-year-old female with a past medical history of CAD status post CABG and stent placement, moderate to severe mitral and aortic valve stenosis, hypertension, hyperlipidemia, rheumatoid arthritis, peripheral vascular disease, and hepatitis C status post treatment. She presented to the emergency department on 01/29/23 with reports of new onset exertional dyspnea and mild generalized abdominal pain/discomfort. She underwent full evaluation in the emergency department. Labs were completed and reviewed. CBC revealed mi crocytic anemia with stable hemoglobin of 10.1. Coagulation profile revealed elevated INR of 1.7 and PT of 17.7. BMP revealing metabolic acidosis with chloride of 108, bicarb 16, and anion gap elevated at 13. Glucose 76. Lactic acid 2.1. Magnesium 1.9. Liver profile showing acute liver failure with AST of 1356, ALT of 1067, and alkaline phosphatase of 232 (previous labs drawn 01/11/23 show normal liver function with AST of 17, ALT 14, and alkaline phosphatase of 88). Urinalysis was positive for infection. Toxicology screen for acetaminophen negative at less than 10 and serum alcohol less than 10. Troponin was 0.030 and proBNP was 50,900. EKG was completed showing sinus bradycardia at 56 bpm with nonspecific T-wave abnormalities. Chest x-ray showing large right middle and lower lobe infiltrates with small pleural effusion and cardiomegaly. KUB showing nonspecific bowel gas pattern. Liver ultrasound was negative for acute intra-abdominal process. CT abdomen and pelvis showing no evidence of acute inflammatory or obstructive process throughout the abdomen or pelvis, revealing a heterogeneous liver without focal mass detected, showing no dilation of biliary tree, revealing cardiomegaly with moderate right pleural effusion and reflux of contrast to the hepatic veins consistent with right heart insufficiency, right middle and lower lobe opacities concerning for atelectasis and pneumonia, small to moderate amount of free pelvic fluid, heavy atherosclerotic calcification of the abdominal aorta and branches with no evidence of reported AAA, and findings as a cystic 2.1 cm structure in the left pelvis likely representing ovary however unable to rule out cyst or cystic neoplasm and radiologist recommending patient follow-up with outpatient ultrasound. Patient was admitted under our services with consultation to cardiology, inventory audit clerk, and gastroenterology.. In the emergency department patient was reported to have recurrent runs of asymptomatic nonsustained V. tach Physical exam: Patient seen and fully evaluated at bedside. Patient appears to be doing much better this morning. She reports feeling much better this morning. Vital signs reviewed and stable. General: Nontoxic, no distress and appears older than stated age. Thin, frail. Appears chronically ill. Derm: Skin warm and dry, normal coloration for ethnicity. Head: Atraumatic, normocephalic and symmetric. Eyes: EOMs intact, no lid lag, and anicteric sclera Mouth: no lip lesions, mucus membranes moist Cardiovascular: regular rate and rhythm with normal S1S2, stage IV systolic murmur, positive posterior tibial pulses bilaterally, and cap refill < 2 seconds. Lungs: Respirations even, regular, and unlabored. Lungs diminished. Mild conversational dyspnea noted. Abdominal: soft, mild tenderness upon palpation diffusely throughout abdomen worse in right upper and epigastric region, no guarding, no appreciable organomegaly Ext: Movement and sensation intact. No gross muscle atrophy, no edema, no contractures. Left lower extremity shorter than right lower extremity (this is baseline secondary to multiple previous surgeries) Neuro: Speech clear, face symmetrical and CN II-XII grossly intact with no noted focal neuro deficits Psych: Alert and oriented to person, place, time, and situation. Appropriate and pleasant affect. Assessment and Plan of Care: Acute transaminitis concerning for acute hepatitis, likely resulting from right- sided heart failure vs drug induced hepatitis from adverse effect of Plaquenil Right-sided heart failure Elevated troponin, likely secondary to acute right-sided heart failure Large right-sided pleural effusion Concerns of right sided pneumonia Recurrent episodes of nonsustained V. tach, likely secondary to right-sided heart failure with fluid volume overload vs electrolyte abnormalities History of CAD status post CABG and stent placement Moderate to severe mitral and aortic valve stenosis Rheumatoid arthritis Peripheral vascular disease History of Hepatitis C status post treatment -Pulmonology following, took patient for thoracentesis on 01/30/23 with a reported removal of 1 L of pleural fluid -Cardiology following, stated no need for repeat echo. 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 -Patient to remain on continuous telemetry monitoring. -Hepatitis panel positive for hepatitis C IgG otherwise negative findings. -Legionella negative -Continue with IV antibiotics Rocephin 2 g every 24 hours and azithromycin 500 mg daily. -Lasix 20 mg IVP every 12 hours Hypomagnesemia Hypokalemia -Magnesium 1.5 orders placed for magnesium sulfate 2 g IVPB -Potassium 3.2 orders placed for K Dur 40 mEq 1 dose. UTI -Urinalysis positive for infection with greater than 182 WBCs. Patient is on R ocephin for treatment of suspected pneumonia. Rocephin will provide cross coverage for UTI as well. Hypoglycemia -Patient had isolated episode of hypoglycemia with Glucose 55. Patient placed on every 4 hours plan of care glucose checks along with glycemic protocol, had no further episodes of hypoglycemia reported. Blood glucose checks decreased to every 6 hours. Hypertension Hyperlipidemia -Patient to continue with lisinopril 5 mg daily and metoprolol 50 mg twice daily. Incidental finding on CT -CT revealing a 2.1 cm structure and left pelvis likely representing ovary however unable to rule out ovarian cyst versus cystic neoplasm, patient will require further workup with outpatient ultrasound once stable. Data and imaging reviewed: Repeat morning labs reviewed. CBC showing normocytic anemia with hemoglobin stable at 9.4. BMP showing hypokalemia with potassium of 3.2, mild prerenal azotemia with BUN of 26, and glucose of 122. Magnesium was low at 1.5. Liver profile showing transaminitis but significant improvement with AST of 280, ALT is 726, and alkaline phosphatase of 162. Vital signs reviewed. Blood pressure 150/65, heart rate 65, respiratory rate 16, temp 98.5F, SpO2 is 93% on room air. CODE STATUS: Full code DVT prophylaxis: Lovenox Anticipated discharge date: Clinical course to determine Anticipated discharge place: clinical course to determine Patient was seen independently by Nurse Pracitioner. This document was prepared using [employer] dictation software. Please allow for errors in refractory worker, while rare they do occur. Jean Claude Lopez NP rendered care for this patient independently, reviewed the findings and plan as documented in the note above. I did not physically speak with or examine the patient on this date. Objective - Vital Signs Vital signs: Vital Signs Temp 98.5 F 01/31/23 07:32 Pulse 65 01/31/23 07:32 Resp 16 01/31/23 07:32 BP 150/65 01/31/23 07:32 Pulse Ox 93 L 01/31/23 07:32 FiO2 Intake & Output 01/30/23 01/31/23 01/31/23 18:59 06:59 18:59 Output Total 1400 Balance -1400 Weight 49.5 kg Output: Urine 1400 Other: # Voids 1 - Labs CBC & Chem 7: 01/31/23 09:11 01/31/23 09:11 Labs: Abnormal Lab Results - Last 24 Hours (Table) 01/30/23 01/30/23 01/30/23 Range/Units 00:32 09:30 11:01 PT 16.7 H (10.0-12.5) sec INR 1.6 H (<1.2) Sodium (137-145) mmol/L Potassium (3.5-5.1) mmol/L BUN (7-17) mg/dL Glucose (74-99) mg/dL POC Glucose (mg/dL) (70-110) mg/dL AST (14-36) U/L ALT (4-34) U/L Alkaline Phosphatase (38-126) U/L Lactate Dehydrogenase (120-246) U/L Total Protein (6.3-8.2) g/dL Albumin (3.5-5.0) g/dL Fluid Appearance Slightly Hazy A (Clear) Hep C IgG Ab Reactive A (Non-Reactive) 01/30/23 01/30/23 01/30/23 Range/Units 11:01 11:01 11:37 PT (10.0-12.5) sec INR (<1.2) Sodium 136 L (137-145) mmol/L Potassium 3.4 L (3.5-5.1) mmol/L BUN 27 H (7-17) mg/dL Glucose 103 H (74-99) mg/dL POC Glucose (mg/dL) 115 H (70-110) mg/dL AST 1223 H (14-36) U/L ALT 1254 H (4-34) U/L Alkaline Phosphatase 204 H (38-126) U/L Lactate Dehydrogenase 1244 H (120-246) U/L Total Protein 5.5 L 5.6 L (6.3-8.2) g/dL Albumin 2.9 L (3.5-5.0) g/dL Fluid Appearance (Clear) Hep C IgG Ab (Non-Reactive) 01/31/23 01/31/23 Range/Units 03:28 07:16 PT (10.0-12.5) sec INR (<1.2) Sodium (137-145) mmol/L Potassium (3.5-5.1) mmol/L BUN (7-17) mg/dL Glucose (74-99) mg/dL POC Glucose (mg/dL) 149 H 118 H (70-110) mg/dL AST (14-36) U/L ALT (4-34) U/L Alkaline Phosphatase (38-126) U/L Lactate Dehydrogenase (120-246) U/L Total Protein (6.3-8.2) g/dL Albumin (3.5-5.0) g/dL Fluid Appearance (Clear) Hep C IgG Ab (Non-Reactive)
[2023-01-31 15:01] LABS: Glucose,Whole Blood 148 mg/dL (70-110)
[2023-01-31 19:06] LABS: Glucose,Whole Blood 154 mg/dL (70-110)
[2023-01-31] MEDS: FUROSEMIDE 10 MG/ML 2 ML VIAL IV SCH (20:18)
[2023-01-31] MEDS: traZODone HCL 50 MG TAB PO SCH (20:18)
--- NOTE | 2023-01-31 20:56 | PN ---
PROGRESS NOTE SUBJECTIVE: Byrnn is a 67-year-old lady who is admitted to hospital with congestive heart failure with pleural effusion and underwent thoracentesis for the same. She has known CAD and had prior bypass surgery and also has peripheral arterial disease, insignificant valvular heart disease. The shortness of breath has improved. An echocardiogram done in December revealed moderate aortic stenosis with normal LV systolic function. OBJECTIVE: GENERAL: On exam, comfortable at rest. VITAL SIGNS: Stable. CHEST: Reveals diminished air entry at the bases. HEART: Reveals first and second heart sounds, grade 4/6 ejection systolic murmur heard at the right upper parasternal border and also at the apex. ABDOMEN: Soft. EXTREMITIES: Exam of extremities reveals mild edema. Peripheral pulses are palpable. LABORATORY DATA: Labs show a hemoglobin of 9.4, platelet count is 188, potassium is 3.2, creatinine is 0.9. AST and ALT are elevated, which are coming down. ASSESSMENT: Acute exacerbation of chronic diastolic heart failure, coronary artery disease status post coronary artery bypass grafting, multivalvular heart disease. PLAN: We will treat the patient with lisinopril, Lasix. Supplement the potassium. Continue the metoprolol. MMODL / IJN: [id number] /
[2023-01-31 21:24] LABS: Glucose, BF Source Pleural Fluid; Glucose, Body Fluid 80 mg/dL
[2023-02-01 00:57] LABS: Glucose,Whole Blood 177 mg/dL (70-110)
[2023-02-01] MEDS: MORPHINE SULFATE 4 MG/ML SYRINGE IV PRN ×3 (01:10→19:52)
[2023-02-01 05:59] LABS: Glucose,Whole Blood 141 mg/dL (70-110)
[2023-02-01 08:24] LABS: Anisocytosis Slight; HCT 33.5 % (34.0-46.0); HGB 9.9 gm/dL (11.4-16.0); Hypochromasia Marked; MCH 27.2 pg (25.0-35.0); MCHC 29.6 g/dL (31.0-37.0); MCV 91.9 fL (80.0-100.0); Mean Platelet Volume 8.5; Platelet Count 218 k/uL (150-450); Poikilocytosis Slight; RBC 3.64 m/uL (3.80-5.40); RDW 16.6 % (11.5-15.5); WBC 5.8 k/uL (3.8-10.6)
[2023-02-01 08:32] LABS: ALT 622 U/L (4-34); AST 195 U/L (14-36); African American GFR (CKD) 77 (>60 ml/min/1.73 sqM); Albumin 2.8 g/dL (3.5-5.0); Alkaline Phosphatase 171 U/L (38-126); Anion Gap 6 mmol/L; Blood Urea Nitrogen 23 mg/dL (7-17); Calcium 8.2 mg/dL (8.4-10.2); Carbon Dioxide 29 mmol/L (22-30); Chloride 104 mmol/L (98-107); Glucose 91 mg/dL (74-99); Magnesium 2.2 mg/dL (1.6-2.3); Non-African American GFR(CKD) 66 (>60 ml/min/1.73 sqM); Potassium 4.3 mmol/L (3.5-5.1); Sodium 139 mmol/L (137-145); Total Bilirubin 0.4 mg/dL (0.2-1.3); Total Protein 5.6 g/dL (6.3-8.2)
[2023-02-01] MEDS: AZITHROMYCIN 500 MG TAB PO SCH (08:33)
[2023-02-01] MEDS: lisinopriL 5 MG TAB PO SCH (08:34)
[2023-02-01] MEDS: ENOXAPARIN 40 MG/0.4 ML SYRINGE SQ SCH (08:34)
[2023-02-01] MEDS: MAGNESIUM OXIDE 400 MG TAB PO SCH (08:34)
[2023-02-01] MEDS: PANTOPRAZOLE 40 MG TABLET PO SCH (08:34)
[2023-02-01] MEDS: METOPROLOL TARTRATE 50 MG TAB PO SCH ×2 (09:40→09:58)
[2023-02-01] MEDS: FUROSEMIDE 10 MG/ML 2 ML VIAL IV SCH (09:57)
--- NOTE | 2023-02-01 11:27 | P.PN ---
Subjective Progress Note Date: 02/01/23 Principal diagnosis: Respiratory failure. This is a pleasant 67-year-old female patient with a known history of coronary artery disease with previous coronary artery bypass grafting and previous stenting, chronic back pain, chronic obstructive pulmonary disease, CVA/TIA, hyperlipidemia, hypertension, rheumatoid arthritis, former smoker who presented to the emergency room yesterday with complaints of increasing shortness of breath and some abdominal discomfort. X-ray revealed large right middle and lower lobe infiltrates with pleural effusion. Mild cardiomegaly. Abdominal x- ray revealed nonspecific bowel gas pattern. Computed tomography scan of the abdomen and pelvis revealed no evidence of inflammatory obstructive process. There is heterogenous liver without focal mass. Again noted moderate right pleural effusion. Liver ultrasound revealed no evidence of an acute process. She was found to have significantly elevated liver enzymes with an AST of 1356 and an ALT of 1067 and alk phos of 232. Troponins were 0.03 and 0.038. ProBNP 50,900. Urinalysis with 3+ proteins large blood and large leukoesterase and high WBCs and few bacteria. Hepatitis C screen is reactive. COVID-19 screen negative. White count 8.5. Hemoglobin 9.9. INR 1.6. Sodium 136. Potassium 3.4. Bicarb 23. BUN 27. Creatinine 0.9. Glucose 115. The patient was seen in consultation in the emergency department. Bedside ultrasound revealed a significant pocket of free-flowing fluid in the right chest. She did undergo a thoracentesis with 1 L of straw-colored fluid removed. Follow-up chest x-ray showed significant improvement in right lung aeration post thoracentesis. No ev idence of pneumothorax. She remains awake and alert in no acute distress. She is maintaining O2 saturations in the 90s on 2 L nasal cannula. Afebrile. Hemodynamically stable. Progress note dated 01/31/2023. This is a 67-year-old female seen today in room 353. The patient has a history of CAD, with previous bypass surgery, and stenting, as well as COPD, TIA, hyperlipidemia, hypertension, and rheumatoid arthritis. The patient was admitted with a diagnosis of right middle lobe and lower lobe infiltrates, with pleural effusion. Currently, she's on room air. She's not receiving any IV flu ids. We will check a pro-calcitonin level on her. She did have a right-sided thoracentesis performed on January 30, with 1 L being removed. Also, it clear on auscultation, the patient has severe aortic stenosis. An echocardiogram was ordered. White count 5.3, hemoglobin 9.4, hematocrit 31, and platelet count 188,000. Sodium 137, potassium 3.2, chlorides 103, CO2 26, BUN 26, and creatinine 0.98. AST 280. ALT 726. Albumin is 2.5. Chest x-ray shows improved pleural effusion on the right, status post thoracentesis. Progress note dated 02/01/2023. 67-year-old female seen in room 353. Currently, the patient is on room air. She's not receiving any IV fluids. The patient has a history of coronary disease, with previous bypass surgery, and stenting, as well as COPD, TIA, hyperlipidemia, hypertension, and rheumatoid arthritis. The patient did have a thoracentesis performed on the right side. Clinically, she feels better. Currently laboratory data includes a white count 5.8, hemoglobin 9.9, hematocrit 33.5, and platelet count 218,000. Sodium 139, potassium 4.3, chlorides 104, CO2 29, BUN 23, and creatinine 0.91. AST is 195. ALT is 622. Albumin is 2.8. Culture data including blood and pleural fluid analysis, is currently negative. Objective - Vital Signs Vital signs: Vital Signs Temp 98.9 F 02/01/23 11:19 Pulse 55 L 02/01/23 11:19 Resp 17 02/01/23 11:19 BP 132/64 02/01/23 11:19 Pulse Ox 97 02/01/23 11:19 FiO2 Intake & Output 01/31/23 02/01/23 02/01/23 18:59 06:59 18:59 Intake Total 200 Output Total 1100 700 Balance -1100 -700 200 Weight 51 kg Intake: Oral 200 Output: Urine 1100 700 Other: Voiding Method External Catheter External Catheter External Catheter # Voids 1 - Exam No acute distress, oriented 3. No respiratory distress. Currently on room a ir. HEENT examination is grossly unremarkable. Mucous membranes are moist. No oral lesions. Neck supple. Full range of motion. No adenopathy thyromegaly or neck vein distention. Cardiovascular examination reveals regular rhythm rate. S1-S2 normal. No S3 or S4. A loud systolic murmur consistent with aortic stenosis is noted. Heart rate is 55 bpm. Lungs reveal mostly clear breath sounds. A few scattered rhonchi. No wheezes or crackles. Saturation is 97% on room air. Abdomen soft bowel sounds are heard. No masses or tenderness. Extremities are intact. No cyanosis clubbing or edema. Skin is without rash or lesion. Neurologic examination is brief but nonfocal. - Labs CBC & Chem 7: 02/01/23 07:53 02/01/23 07:53 Labs: Abnormal Lab Results - Last 24 Hours (Table) 01/31/23 01/31/23 01/31/23 Range/Units 09:11 14:59 19:04 RBC (3.80-5.40) m/uL Hgb (11.4-16.0) gm/dL Hct (34.0-46.0) % MCHC (31.0-37.0) g/dL RDW (11.5-15.5) % BUN (7-17) mg/dL POC Glucose (mg/dL) 148 H 154 H (70-110) mg/dL Calcium (8.4-10.2) mg/dL AST (14-36) U/L ALT (4-34) U/L Alkaline Phosphatase (38-126) U/L Total Protein (6.3-8.2) g/dL Albumin (3.5-5.0) g/dL Procalcitonin 0.33 H (0.02-0.09) ng/mL 02/01/23 02/01/23 02/01/23 Range/Units 00:56 05:58 07:53 RBC 3.64 L (3.80-5.40) m/uL Hgb 9.9 L (11.4-16.0) gm/dL Hct 33.5 L (34.0-46.0) % MCHC 29.6 L (31.0-37.0) g/dL RDW 16.6 H (11.5-15.5) % BUN (7-17) mg/dL POC Glucose (mg/dL) 177 H 141 H (70-110) mg/dL Calcium (8.4-10.2) mg/dL AST (14-36) U/L ALT (4-34) U/L Alkaline Phosphatase (38-126) U/L Total Protein (6.3-8.2) g/dL Albumin (3.5-5.0) g/dL Procalcitonin (0.02-0.09) ng/mL 02/01/23 Range/Units 07:53 RBC (3.80-5.40) m/uL Hgb (11.4-16.0) gm/dL Hct (34.0-46.0) % MCHC (31.0-37.0) g/dL RDW (11.5-15.5) % BUN 23 H (7-17) mg/dL POC Glucose (mg/dL) (70-110) mg/dL Calcium 8.2 L (8.4-10.2) mg/dL AST 195 H (14-36) U/L ALT 622 H (4-34) U/L Alkaline Phosphatase 171 H (38-126) U/L Total Protein 5.6 L (6.3-8.2) g/dL Albumin 2.8 L (3.5-5.0) g/dL Procalcitonin (0.02-0.09) ng/mL Microbiology - Last 24 Hours (Table) 01/30/23 09:30 Acid Fast Bacilli Smear - Preliminary Pleural Fluid 01/30/23 09:30 Gram Stain - Preliminary Pleural Fluid Body Fluid Culture - Preliminary 01/29/23 20:45 Blood Culture - Preliminary Blood 01/29/23 21:00 Blood Culture - Preliminary Blood Assessment and Plan Assessment: Acute hypoxemic respiratory failure secondary to a moderate to large right-sided pleural effusion. Status post thoracentesis with 1 L of straw-colored fluid removed. Abdominal discomfort patient found to have significantly elevated liver enzymes. Liver ultrasound revealed no acute process. Hepatitis C. Coagulopathy secondary to above. Urinary tract infection, culture pending. Acute on chronic anemia. Rheumatoid arthritis maintained on hydroxychloroquine. Hyperlipidemia. Recent MRSA bacteremia secondary to a left knee wound. History of coronary artery disease with previous coronary artery bypass grafting and previous stent placement. History of moderate aortic stenosis. History of rheumatoid arthritis associated interstitial lung disease. Plan: Plan dated 01/31/2023. The patient is seen today in room 353. The patient had a right-sided thoracentesis, yesterday, with 1 L being removed. Her cardiac auscultation reveals a harsh murmur consistent with aortic stenosis. We will check a pro- calcitonin level. The patient's currently on room air and not receiving any IV fluids. Labs, x-rays, medications are reviewed. The patient's overall prognosis remains guarded. We will continue to follow make recommendations along the way. Her elevated liver enzymes could very well be a result of congestive hepatopathy. Plan dated 02/01/2023. The patient is seen today in room 353. The patient continues to show daily improvement. Currently, she is on room air. She's not receiving any IV fluids. Liver function tests, continue to improve. Labs, x-rays, and medications are reviewed. We will continue to follow the patient, and make recommendations along the way. A pro-calcitonin level was 0.33. The pleural fluid analysis suggest a transudate. The patient continues on Rocephin. Time with Patient: Less than 30
[2023-02-01 11:31] LABS: Glucose,Whole Blood 102 mg/dL (70-110)
--- NOTE | 2023-02-01 13:07 | P.PN ---
Subjective Progress Note Date: 02/01/23 Hospital course: Patient is a pleasant 67-year-old female with a past medical history of CAD status post CABG and stent placement, moderate to severe mitral and aortic valve stenosis, hypertension, hyperlipidemia, rheumatoid arthritis, peripheral vascular disease, and hepatitis C status post treatment. She presented to the emergency department on 01/29/23 with reports of new onset exertional dyspnea and mild generalized abdominal pain/discomfort. She underwent full evaluation in the emergency department. Labs were completed and reviewed. CBC revealed mi crocytic anemia with stable hemoglobin of 10.1. Coagulation profile revealed elevated INR of 1.7 and PT of 17.7. BMP revealing metabolic acidosis with chloride of 108, bicarb 16, and anion gap elevated at 13. Glucose 76. Lactic acid 2.1. Magnesium 1.9. Liver profile showing acute liver failure with AST of 1356, ALT of 1067, and alkaline phosphatase of 232 (previous labs drawn 01/11/23 show normal liver function with AST of 17, ALT 14, and alkaline phosphatase of 88). Urinalysis was positive for infection. Toxicology screen for acetaminophen negative at less than 10 and serum alcohol less than 10. Troponin was 0.030 and proBNP was 50,900. EKG was completed showing sinus bradycardia at 56 bpm with nonspecific T-wave abnormalities. Chest x-ray showing large right middle and lower lobe infiltrates with small pleural effusion and cardiomegaly. KUB showing nonspecific bowel gas pattern. Liver ultrasound was negative for acute intra-abdominal process. CT abdomen and pelvis showing no evidence of acute inflammatory or obstructive process throughout the abdomen or pelvis, revealing a heterogeneous liver without focal mass detected, showing no dilation of biliary tree, revealing cardiomegaly with moderate right pleural effusion and reflux of contrast to the hepatic veins consistent with right heart insufficiency, right middle and lower lobe opacities concerning for atelectasis and pneumonia, small to moderate amount of free pelvic fluid, heavy atherosclerotic calcification of the abdominal aorta and branches with no evidence of reported AAA, and findings as a cystic 2.1 cm structure in the left pelvis likely representing ovary however unable to rule out cyst or cystic neoplasm and radiologist recommending patient follow-up with outpatient ultrasound. Patient was admitted under our services with consultation to cardiology, it service continuity supervisor, and gastroenterology.. In the emergency department patient was reported to have recurrent runs of asymptomatic nonsustained V. tach. Electrolyte abnormalities were replaced and patient was started on IV Lasix for diuresis. Physical exam: Patient seen and fully evaluated at bedside. Patient continues to do well this morning, she reports continued abdominal pain if palpated or with movement but otherwise states that at rest she feels great. Vital signs reviewed and stable. General: Nontoxic, no distress and appears older than stated age. Thin, frail. Appears chronically ill. Derm: Skin warm and dry, normal coloration for ethnicity. Head: Atraumatic, normocephalic and symmetric. Eyes: EOMs intact, no lid lag, and anicteric sclera Mouth: no lip lesions, mucus membranes moist Cardiovascular: regular rate and rhythm with normal S1S2, stage IV systolic murmur, positive posterior tibial pulses bilaterally, and cap refill < 2 seconds. Lungs: Respirations even, regular, and unlabored. Lungs diminished. No rhonchi, rales, wheezes, or crackles noted. No conversational dyspnea noted. Abdominal: soft, mild tenderness upon palpation diffusely throughout abdomen wo rse in right upper and epigastric region, no guarding, no appreciable organomegaly Ext: Movement and sensation intact. No gross muscle atrophy, scant edema, no contractures. Left lower extremity shorter than right lower extremity (this is baseline secondary to multiple previous surgeries) Neuro: Speech clear, face symmetrical and CN II-XII grossly intact with no noted focal neuro deficits Psych: Alert and oriented to person, place, time, and situation. Appropriate and pleasant affect. Assessment and Plan of Care: Acute hepatitis, likely resulting from right-sided heart failure and less likely do to drug induced hepatitis from adverse effect of Plaquenil Right-sided heart failure Elevated troponin, likely secondary to acute right-sided heart failure Large right-sided pleural effusion, status post thoracentesis Concerns of right sided pneumonia Recurrent episodes of nonsustained V. tach, likely secondary to right-sided h eart failure with fluid volume overload accompanied by electrolyte abnormalities History of CAD status post CABG and stent placement Moderate to severe mitral and aortic valve stenosis Rheumatoid arthritis Peripheral vascular disease History of Hepatitis C status post treatment -Pulmonology following, took patient for thoracentesis on 01/30/23 with a reported removal of 1 L of pleural fluid -Cardiology following, stated no need for repeat echo and to continue Lasix 20 mg IVP every 12 hours. -Consult placed to dog license officer supervisor, discussed plan of care with gastroenterology TRAINING FACILITATOR -Continue to Hold hepatotoxic medications including [place], Plaquenil, and atorvastatin. -Continue telemetry monitoring, strict I's and O's, and daily weights. Documented output over the past 24 hours is 1800 mL. -Hepatitis panel positive for hepatitis C IgG otherwise negative findings. -Legionella negative -Completed three-day course of the Zithromax and is on day 3/5 of IV antibiotics with Rocephin 2 g every 24 hours and azithromycin 500 mg daily. -Lasix 20 mg IVP every 12 hours -Patient to continue with daily medication regimen with lisinopril 5 mg daily and metoprolol 50 mg twice daily. Hypomagnesemia, resolved. Repeat Magnesium 2.2 Hypokalemia, resolved. Repeat Potassium 4.3 UTI -Urinalysis positive for infection with greater than 182 WBCs. Patient is on Rocephin for treatment of suspected pneumonia. No urine culture was obtained on admission. Rocephin will provide cross coverage for UTI as well. Hypoglycemia -Patient had isolated episode of hypoglycemia with Glucose 55. Patient initially placed on every 4 hours plan of care glucose checks along with glycemic protocol, had no further episodes of hypoglycemia reported. Blood glucose checks decreased to every 6 hours. Hypertension Hyperlipidemia -Patient to continue with lisinopril 5 mg daily and metoprolol 50 mg twice daily. Incidental finding on CT -CT revealing a 2.1 cm structure and left pelvis likely representing ovary however unable to rule out ovarian cyst versus cystic neoplasm, patient will require further workup with outpatient ultrasound once medically stable. Data and imaging reviewed: Repeat morning labs reviewed. CBC showing stable normocytic anemia with hemoglobin of 9.9. BMP showing stable elevation of BUN at 23 otherwise unremarkable. Blood glucose this morning was 91. Liver profile showing significant improvement with AST of 195, ALT is 622, and alkaline phosphatase of 171 (significant improvement from initial AST of 1356, ALT of 1067, an alkaline phosphatase of 232). Vital signs reviewed. Blood pressure 131/63, heart rate 55, respiratory rate 15, temp 98.4F. CODE STATUS: Full code DVT prophylaxis: Lovenox Anticipated discharge date: Clinical course to determine Anticipated discharge place: clinical course to determine Patient was seen independently by Nurse Pracitioner. This document was prepared using [employer] dictation software. Please allow for errors in drum builder, while rare they do occur. Jean Claude Lopez NP rendered care for this patient independently, reviewed the findings and plan as documented in the note above. I did not physically speak with or examine the patient on this date. Objective - Vital Signs Vital signs: Vital Signs Temp 98.4 F 02/01/23 08:00 Pulse 55 L 02/01/23 08:00 Resp 19 02/01/23 08:00 BP 131/63 02/01/23 08:00 Pulse Ox 95 02/01/23 08:00 FiO2 Intake & Output 01/31/23 02/01/23 02/01/23 18:59 06:59 18:59 Output Total 1100 700 Balance -1100 -700 Weight 51 kg Output: Urine 1100 700 Other: Voiding Method External Catheter External Catheter # Voids 1 - Labs CBC & Chem 7: 02/01/23 07:53 02/01/23 07:53 Labs: Abnormal Lab Results - Last 24 Hours (Table) 01/31/23 01/31/23 01/31/23 Range/Units 09:11 09:11 09:11 RBC 3.44 L (3.80-5.40) m/uL Hgb 9.4 L (11.4-16.0) gm/dL Hct 31.0 L (34.0-46.0) % MCHC 30.3 L (31.0-37.0) g/dL RDW 16.6 H (11.5-15.5) % Lymphocytes # 0.9 L (1.0-4.8) k/uL Potassium 3.2 L (3.5-5.1) mmol/L BUN 26 H (7-17) mg/dL Glucose 122 H (74-99) mg/dL POC Glucose (mg/dL) (70-110) mg/dL Calcium 7.8 L (8.4-10.2) mg/dL Magnesium 1.5 L (1.6-2.3) mg/dL AST 280 H (14-36) U/L ALT 726 H (4-34) U/L Alkaline Phosphatase 162 H (38-126) U/L Total Protein 5.0 L (6.3-8.2) g/dL Albumin 2.5 L (3.5-5.0) g/dL Procalcitonin 0.33 H (0.02-0.09) ng/mL 01/31/23 01/31/23 01/31/23 Range/Units 10:59 14:59 19:04 RBC (3.80-5.40) m/uL Hgb (11.4-16.0) gm/dL Hct (34.0-46.0) % MCHC (31.0-37.0) g/dL RDW (11.5-15.5) % Lymphocytes # (1.0-4.8) k/uL Potassium (3.5-5.1) mmol/L BUN (7-17) mg/dL Glucose (74-99) mg/dL POC Glucose (mg/dL) 169 H 148 H 154 H (70-110) mg/dL Calcium (8.4-10.2) mg/dL Magnesium (1.6-2.3) mg/dL AST (14-36) U/L ALT (4-34) U/L Alkaline Phosphatase (38-126) U/L Total Protein (6.3-8.2) g/dL Albumin (3.5-5.0) g/dL Procalcitonin (0.02-0.09) ng/mL 02/01/23 02/01/23 02/01/23 Range/Units 00:56 05:58 07:53 RBC 3.64 L (3.80-5.40) m/uL Hgb 9.9 L (11.4-16.0) gm/dL Hct 33.5 L (34.0-46.0) % MCHC 29.6 L (31.0-37.0) g/dL RDW 16.6 H (11.5-15.5) % Lymphocytes # (1.0-4.8) k/uL Potassium (3.5-5.1) mmol/L BUN (7-17) mg/dL Glucose (74-99) mg/dL POC Glucose (mg/dL) 177 H 141 H (70-110) mg/dL Calcium (8.4-10.2) mg/dL Magnesium (1.6-2.3) mg/dL AST (14-36) U/L ALT (4-34) U/L Alkaline Phosphatase (38-126) U/L Total Protein (6.3-8.2) g/dL Albumin (3.5-5.0) g/dL Procalcitonin (0.02-0.09) ng/mL 02/01/23 Range/Units 07:53 RBC (3.80-5.40) m/uL Hgb (11.4-16.0) gm/dL Hct (34.0-46.0) % MCHC (31.0-37.0) g/dL RDW (11.5-15.5) % Lymphocytes # (1.0-4.8) k/uL Potassium (3.5-5.1) mmol/L BUN 23 H (7-17) mg/dL Glucose (74-99) mg/dL POC Glucose (mg/dL) (70-110) mg/dL Calcium 8.2 L (8.4-10.2) mg/dL Magnesium (1.6-2.3) mg/dL AST 195 H (14-36) U/L ALT 622 H (4-34) U/L Alkaline Phosphatase 171 H (38-126) U/L Total Protein 5.6 L (6.3-8.2) g/dL Albumin 2.8 L (3.5-5.0) g/dL Procalcitonin (0.02-0.09) ng/mL Microbiology - Last 24 Hours (Table) 01/30/23 09:30 Acid Fast Bacilli Smear - Preliminary Pleural Fluid 01/30/23 09:30 Gram Stain - Preliminary Pleural Fluid Body Fluid Culture - Preliminary 01/29/23 20:45 Blood Culture - Preliminary Blood 01/29/23 21:00 Blood Culture - Preliminary Blood
--- NOTE | 2023-02-01 14:42 | P.PN ---
Subjective Progress Note Date: 02/01/23 Principal diagnosis: Acute hepatitis This a pleasant 67-year-old female with a past medical history including coronary artery disease status post bypass, COPD, CVA, recent GI bleed and hepatitis C treated a few years ago. Patient was admitted for shortness of breath, congestive heart failure and large right pleural effusion status post thoracentesis with the thousand milliliters removed. Patient was noted on admission to have significantly elevated LFTs. She denies any previous known history of liver cirrhosis. She does not follow anybody for her hepatitis C. On admission patient was acidotic, BNP 50,900, total bilirubin was 1.3. AST 1356 AL T 1067 alkaline phosphatase 232 lipase 111. Patient denies any abdominal pain. Does state that she has been on vancomycin in the outpatient setting for quite some time for an infection in her knee. Discontinued it about one week ago. Currently shortness of breath has improved, she denies any abdominal pain, nausea or vomiting. LFTs improved total bilirubin 0.3 AST 280 ALT 726 alkaline phosphatase 162. Patient's hepatitis C antibody is reactive. Salicylate was normal as well as acetaminophen and serum alcohol level. 01/24/2023 Patient seen and examined today as a follow-up for acute hepatitis. Likely acute hepatitis related to underlying heart failure. LFTs continue to trend down. Patient denies any abdominal pain, nausea or vomiting. Patient had seen jasper collier in the past for her hepatitis C and was treated with Epclusa. Repeat liver enzymes continue to trend down. Today total bilirubin 0.4 AST 195 ALT 622 alkaline phosphatase 171 Objective - Vital Signs Vital signs: Vital Signs Temp 98.4 F 02/01/23 08:00 Pulse 56 L 02/01/23 09:58 Resp 19 02/01/23 08:00 BP 131/63 02/01/23 08:00 Pulse Ox 95 02/01/23 08:00 FiO2 Intake & Output 01/31/23 02/01/23 02/01/23 18:59 06:59 18:59 Intake Total 200 Output Total 1100 700 Balance -1100 -700 200 Weight 51 kg Intake: Oral 200 Output: Urine 1100 700 Other: Voiding Method External Catheter External Catheter External Catheter # Voids 1 - Exam General appearance: The patient is alert, oriented, appears in no acute distress. HET: Head is normocephalic and atraumatic. Conjunctiva pink. Sclera anicteric. Neck: Supple without lymphadenopathy. Abdomen: Soft, nontender, nondistended with bowel sounds. No guarding or rigidity. Extremities: Normal skin color and turgor. No pedal edema Skin: No rashes, no jaundice Neurological: No focal deficits. Alert and oriented. - Labs CBC & Chem 7: 02/01/23 07:53 02/01/23 07:53 Labs: Abnormal Lab Results - Last 24 Hours (Table) 01/31/23 01/31/23 01/31/23 Range/Units 09:11 10:59 14:59 RBC (3.80-5.40) m/uL Hgb (11.4-16.0) gm/dL Hct (34.0-46.0) % MCHC (31.0-37.0) g/dL RDW (11.5-15.5) % BUN (7-17) mg/dL POC Glucose (mg/dL) 169 H 148 H (70-110) mg/dL Calcium (8.4-10.2) mg/dL AST (14-36) U/L ALT (4-34) U/L Alkaline Phosphatase (38-126) U/L Total Protein (6.3-8.2) g/dL Albumin (3.5-5.0) g/dL Procalcitonin 0.33 H (0.02-0.09) ng/mL 01/31/23 02/01/23 02/01/23 Range/Units 19:04 00:56 05:58 RBC (3.80-5.40) m/uL Hgb (11.4-16.0) gm/dL Hct (34.0-46.0) % MCHC (31.0-37.0) g/dL RDW (11.5-15.5) % BUN (7-17) mg/dL POC Glucose (mg/dL) 154 H 177 H 141 H (70-110) mg/dL Calcium (8.4-10.2) mg/dL AST (14-36) U/L ALT (4-34) U/L Alkaline Phosphatase (38-126) U/L Total Protein (6.3-8.2) g/dL Albumin (3.5-5.0) g/dL Procalcitonin (0.02-0.09) ng/mL 02/01/23 02/01/23 Range/Units 07:53 07:53 RBC 3.64 L (3.80-5.40) m/uL Hgb 9.9 L (11.4-16.0) gm/dL Hct 33.5 L (34.0-46.0) % MCHC 29.6 L (31.0-37.0) g/dL RDW 16.6 H (11.5-15.5) % BUN 23 H (7-17) mg/dL POC Glucose (mg/dL) (70-110) mg/dL Calcium 8.2 L (8.4-10.2) mg/dL AST 195 H (14-36) U/L ALT 622 H (4-34) U/L Alkaline Phosphatase 171 H (38-126) U/L Total Protein 5.6 L (6.3-8.2) g/dL Albumin 2.8 L (3.5-5.0) g/dL Procalcitonin (0.02-0.09) ng/mL Microbiology - Last 24 Hours (Table) 01/30/23 09:30 Acid Fast Bacilli Smear - Preliminary Pleural Fluid 01/30/23 09:30 Gram Stain - Preliminary Pleural Fluid Body Fluid Culture - Preliminary 01/29/23 20:45 Blood Culture - Preliminary Blood 01/29/23 21:00 Blood Culture - Preliminary Blood Assessment and Plan (1) Acute hepatitis Narrative/Plan: 67-year-old presenting for shortness of breath noted to be acidotic on admission, pleural effusion, possible pneumonia with the heart failure. Patient was noted to have significantly elevated LFTs on admission consistent with acute hepatitis likely from hypoperfusion secondary to congestive heart failure. Patient also recently on vancomycin for long-term infection in her knee which was discontinued about one week ago. Patient also possibly with some underlying liver disease related to hepatitis C which she states was treated a few years ago. LFTs are trending down lactic acidosis improved. Repeat total bilirubin 0.3 down from initial 1.3 AST 280 down from initial 1356 ALT 726 down from 1067 alkaline phosphatase 162 down from 232. There is no indication for any further workup at this time. Current Visit: Yes Status: Acute Code(s): B17.9 - ACUTE VIRAL HEPATITIS, UNSPECIFIED SNOMED Code(s): 57744474 (2) History of hepatitis C virus infection Current Visit: Yes Status: Acute Code(s): Z86.19 - PERSONAL HISTORY OF OTHER INFECTIOUS AND PARASITIC DISEASES SNOMED Code(s): 52072118586073 (3) Heart failure Current Visit: Yes Status: Acute Code(s): I50.9 - HEART FAILURE, UNSPECIFIED SNOMED Code(s): 12714692 (4) Elevated brain natriuretic peptide (BNP) level Current Visit: Yes Status: Acute Code(s): R79.89 - OTHER SPECIFIED ABNORMAL FINDINGS OF BLOOD CHEMISTRY SNOMED Code(s): 659463025 (5) Lactic acidosis Current Visit: Yes Status: Acute Code(s): E87.20 - ACIDOSIS, UNSPECIFIED SNOMED Code(s): 67231112 (6) Pleural effusion Current Visit: Yes Status: Acute Code(s): J90 - PLEURAL EFFUSION, NOT ELSEWHERE CLASSIFIED SNOMED Code(s): 58695611 (7) COPD (chronic obstructive pulmonary disease) Current Visit: No Status: Acute Code(s): J44.9 - CHRONIC OBSTRUCTIVE PULMONARY DISEASE, UNSPECIFIED SNOMED Code(s): 44544295 (8) Hx of CABG Current Visit: No Status: Acute Code(s): Z95.1 - PRESENCE OF AORTOCORONARY BYPASS GRAFT SNOMED Code(s): 937824497 Plan: 1. Continue symptomatic and supportive care 2. Avoid hepatotoxic medications 3. Recommend outpatient follow-up with gastroenterology in 2 weeks.e. 4. No further workup indicated by gastroenterology Thank you for this consultation, she is cleared for discharge from gastroenterology. We will sign off at this time. Dr. Alexus Guevara I agree with the dictator's note, documented as a scribe by Renate Cee.
[2023-02-01 16:21] LABS: Glucose,Whole Blood 124 mg/dL (70-110)
--- NOTE | 2023-02-01 18:58 | P.PN ---
Subjective Progress Note Date: 02/01/23 The patient is a pleasant 67-year-old female patient who is known to her service from before with a past medical history significant for coronary artery disease status post CABG with TINOCO into LAD and EG to OM and SVG to RCA and stenting of the LAD distal to the anastomosis as well as heart failure with preserved ejection fraction and also carotid atherosclerosis and lower extremities PAD as well as valvular heart disease with aortic stenosis as well as multiple comorbid conditions. She presented to the hospital with progressive exertional dyspnea started about 24 hours for 48 hours before. No symptoms of chest pain or chest discomfort and no lower extremities edema and no change in the weight. The patient is supposed to be on oral diuretics but clearly she has not been compliant with her medications. She underwent further workup including chest x- ray and that showed large pleural effusion and she underwent thoracentesis by the pulmonary/critical care team. The NT proBNP came in to be severely elevated. The chest x-ray beside that showed pulmonary vascular congestion. The EKG showed sinus mechanism with diffuse nonspecific ST and T wave abnormalities. The patient was seen by our service assembly with shortness of breath and mildly abnormal troponin. She underwent further investigation including an echocardiogram and that revealed preserved LV systolic function was moderate aortic stenosis which is known from before. Recent heart catheterization showed severe triple vessel coronary artery disease with patent TINOCO to LAD and patent stent distal to the anastomosis as well as patent SVG to LCx is patent SVG to RCA. The examination is remarkable for diminished breathing sounds bilaterally with a regular rate and rhythm significant murmur at the right and left upper sternal border consistent with aortic stenosis murmur and decreased in the intensity of S2. No lower extremity edema noted. 02/01/2023 Patient reports that she is symptomatically feeling better. She status post thoracentesis. I feel patient should be appropriate to be discharged tomorrow a.m. Assessment Acute hypoxic respiratory failure, multi-factorial related to heart failure, pneumonia, and COPD Heart failure exacerbation with a preserved ejection fraction in a patient with at least moderate aortic stenosis Large right pleural effusion status post pleurocentesis Coronary artery disease as described above Valvular heart disease as described above Multiple comorbid conditions Noncompliance with medication Plan Continue Lasix IV Monitor the kidney function and electrolytes Continue guideline directed medical therapy She was advised to be compliant with her medications No need to repeat the echocardiogram Objective - Vital Signs Vital signs: Vital Signs Temp 97.9 F 02/01/23 16:00 Pulse 58 L 02/01/23 16:00 Resp 16 02/01/23 16:00 BP 121/50 02/01/23 16:00 Pulse Ox 96 02/01/23 16:00 FiO2 Intake & Output 01/31/23 02/01/23 02/01/23 18:59 06:59 18:59 Intake Total 535 Output Total 1100 700 500 Balance -1100 -700 35 Weight 51 kg Intake: Oral 535 Output: Urine 1100 700 500 Other: Voiding Method External Catheter External Catheter External Catheter # Voids 1 - Labs CBC & Chem 7: 02/01/23 07:53 02/01/23 07:53 Labs: Abnormal Lab Results - Last 24 Hours (Table) 01/31/23 02/01/23 02/01/23 Range/Units 19:04 00:56 05:58 RBC (3.80-5.40) m/uL Hgb (11.4-16.0) gm/dL Hct (34.0-46.0) % MCHC (31.0-37.0) g/dL RDW (11.5-15.5) % BUN (7-17) mg/dL POC Glucose (mg/dL) 154 H 177 H 141 H (70-110) mg/dL Calcium (8.4-10.2) mg/dL AST (14-36) U/L ALT (4-34) U/L Alkaline Phosphatase (38-126) U/L Total Protein (6.3-8.2) g/dL Albumin (3.5-5.0) g/dL 02/01/23 02/01/23 02/01/23 Range/Units 07:53 07:53 16:18 RBC 3.64 L (3.80-5.40) m/uL Hgb 9.9 L (11.4-16.0) gm/dL Hct 33.5 L (34.0-46.0) % MCHC 29.6 L (31.0-37.0) g/dL RDW 16.6 H (11.5-15.5) % BUN 23 H (7-17) mg/dL POC Glucose (mg/dL) 124 H (70-110) mg/dL Calcium 8.2 L (8.4-10.2) mg/dL AST 195 H (14-36) U/L ALT 622 H (4-34) U/L Alkaline Phosphatase 171 H (38-126) U/L Total Protein 5.6 L (6.3-8.2) g/dL Albumin 2.8 L (3.5-5.0) g/dL Microbiology - Last 24 Hours (Table) 01/29/23 20:45 Blood Culture - Preliminary Blood 01/29/23 21:00 Blood Culture - Preliminary Blood 01/30/23 09:30 Acid Fast Bacilli Smear - Preliminary Pleural Fluid 01/30/23 09:30 Gram Stain - Preliminary Pleural Fluid Body Fluid Culture - Preliminary
[2023-02-01] MEDS: METOPROLOL TARTRATE 12.5 MG TAB PO SCH (19:52)
[2023-02-01] MEDS: traZODone HCL 50 MG TAB PO SCH (19:52)
[2023-02-01] MEDS ORDERED: ATORVASTATIN 40 MG TAB PO SCH (21:00)
[2023-02-01 23:14] LABS: Glucose,Whole Blood 119 mg/dL (70-110)
[2023-02-02] MEDS: MORPHINE SULFATE 4 MG/ML SYRINGE IV PRN ×2 (05:29→09:32)
[2023-02-02 05:37] VITALS: TEMP 98.3
[2023-02-02 06:02] LABS: Glucose,Whole Blood 122 mg/dL (70-110)
[2023-02-02] MEDS ORDERED: FUROSEMIDE 20 MG TAB PO SCH ×2 (09:00)
[2023-02-02] MEDS ORDERED: ASPIRIN 81 MG PO SCH (09:00)
[2023-02-02] MEDS ORDERED: ISOSORBIDE MONONITRATE ER 30 MG TAB.ER.24H PO SCH (09:00)
[2023-02-02 09:27] LABS: Anisocytosis Slight; HGB 9.7 gm/dL (11.4-16.0); Hypochromasia Marked; MCH 28.2 pg (25.0-35.0); MCHC 30.4 g/dL (31.0-37.0); MCV 92.7 fL (80.0-100.0); Mean Platelet Volume 8.4; Platelet Count 230 k/uL (150-450); Poikilocytosis Slight; RBC 3.45 m/uL (3.80-5.40); RDW 16.5 % (11.5-15.5); WBC 6.1 k/uL (3.8-10.6)
[2023-02-02] MEDS: METOPROLOL TARTRATE 12.5 MG TAB PO SCH (09:29)
[2023-02-02] MEDS: lisinopriL 5 MG TAB PO SCH (09:29)
[2023-02-02] MEDS: PANTOPRAZOLE 40 MG TABLET PO SCH (09:29)
[2023-02-02] MEDS: MAGNESIUM OXIDE 400 MG TAB PO SCH (09:30)
[2023-02-02] MEDS: ENOXAPARIN 40 MG/0.4 ML SYRINGE SQ SCH (09:30)
[2023-02-02 10:02] LABS: ALT 491 U/L (4-34); AST 183 U/L (14-36); African American GFR (CKD) 72 (>60 ml/min/1.73 sqM); Albumin 2.9 g/dL (3.5-5.0); Alkaline Phosphatase 151 U/L (38-126); Anion Gap 11 mmol/L; Blood Urea Nitrogen 24 mg/dL (7-17); Calcium 8.2 mg/dL (8.4-10.2); Carbon Dioxide 26 mmol/L (22-30); Chloride 100 mmol/L (98-107); Glucose 97 mg/dL (74-99); Magnesium 1.8 mg/dL (1.6-2.3); Non-African American GFR(CKD) 62 (>60 ml/min/1.73 sqM); Potassium 4.7 mmol/L (3.5-5.1); Sodium 137 mmol/L (137-145); Total Bilirubin 0.4 mg/dL (0.2-1.3); Total Protein 5.6 g/dL (6.3-8.2)
[2023-02-02 10:05] VITALS: BP 122/50; PULSE 62; RESP 18
--- NOTE | 2023-02-02 10:15 | CDI ---
Documentation Clarification Form Date: 02/02/2023 09:45:29 AM From: Charlene Valdovinos RN CCDS Phone: [phone] Admit Date: 01/29/2023 09:37:00 PM Patient Name: Brynn Sr Visit Number: [id number] Discharge Date: ATTENTION: The Clinical Documentation Specialists (CDI) and [facility] Coding Staff appreciate your assistance in clarifying documentation. Please respond to the clarification below the line at the bottom and electronically sign. The CDI & [facility] Coding staff will review the response and follow-up if needed. Please note: Queries are made part of the Legal Health Record. If you have any questions, please contact the author of this message via ITS. Dr. Louann Ochoa Your patient has troponin level(s) of: 01/29: 0.030; 01/30: 0.035; 0.038. Please clarify if there is an additional diagnosis and/or clinical significance related to this value. Patient history/risk factors: 67-year-old female presented with new onset exertional dyspnea and epigastric abdominal pain. Medical History: STEMI December 2022, CAD, HLD, COPD, HTN and CVA. H&P, 01/29. Clinical indicators: VSS, 01/29: B/P 140/62; HR 57; Temp 97.9 F Oral, RR 18; SpO2 95% room air CXR, 01/29: Large right middle and lower lobe infiltrates with small pleural effusion. Mild cardiomegaly without pulmonary vascular congestion. Treatment: 01/29 Nitrostat Sublingual x 1; 01/30 Lasix IV x 1; 01/31 02/01 Lasix 20mg IV BID; 01/29- 02/01 Lopressor 50mg PO BID; 02/01 Lopressor 12.5mg PO Daily; 02/02 Lasix 20mg PO Daily; 02/02 Imdur PO 30mg Daily NT Pro B Natriuret Pep, 01/29: 26710 Troponin, 01/29: 0.030; 01/30 0.035; 0.038 EKG, 01/29: Sinus Bradycardia, Nonspecific T- wave abnormality, Borderline ECG Medicine Note, 02/01: Elevated troponin, likely secondary to acute right sided heart failure. Large right sided pleural effusion, status post thoracentesis. Is there an additional diagnosis and/or clinical significance related to the above lab result/information: [ x ] Type 2 IA due to acute right sided heart failure [ ] No additional diagnosis/Not clinically significant [ ] Other, please specify [ ] Unable to determine Reference: [employer] Fourth [place] Definition of Myocardial Infraction Elevated Cardiac Troponin >99th percentile with Troponin rise and/or fall * With Acute ischemia * Acute Myocardial Infarction * Atherosclerosis thrombosis * Type I IA * Oxygen supply and demand imbalance * Type II IA (Please indicate etiology) * Without acute ischemia * Acute Myocardial Injury (Template Last Reviewed: September 2022) MTDD
--- NOTE | 2023-02-02 10:36 | XR ---
EXAMINATION TYPE: XR chest 2V DATE OF EXAM: 02/02/2023 10:20 AM CLINICAL INDICATION:Female, 67 years old with history of CHF, pleural effusions, s/p thoracentesis; P HH COMPARISON: Chest radiographs from 01/30/2023. TECHNIQUE: XR chest 2V Frontal and lateral views of the chest. FINDINGS: Lungs/Pleura: There is no evidence of pleural effusion, focal consolidation, or pneumothorax. Pulmonary vascularity: Pulmonary vascular congestion. Heart/mediastinum: Cardiomediastinal silhouette is enlarged and stable. Musculoskeletal: No acute osseous pathology. Midline sternotomy wires are noted. Other findings: None IMPRESSION: Cardiomegaly and mild pulmonary vascular congestion. Correlate with BNP for congestive heart failure.
[2023-02-02 11:16] LABS: Glucose,Whole Blood 142 mg/dL (70-110)
--- NOTE | 2023-02-02 11:34 | P.PN ---
Subjective Progress Note Date: 02/02/23 Principal diagnosis: Respiratory failure. This is a pleasant 67-year-old female patient with a known history of coronary artery disease with previous coronary artery bypass grafting and previous stenting, chronic back pain, chronic obstructive pulmonary disease, CVA/TIA, hyperlipidemia, hypertension, rheumatoid arthritis, former smoker who presented to the emergency room yesterday with complaints of increasing shortness of breath and some abdominal discomfort. X-ray revealed large right middle and lower lobe infiltrates with pleural effusion. Mild cardiomegaly. Abdominal x- ray revealed nonspecific bowel gas pattern. Computed tomography scan of the abdomen and pelvis revealed no evidence of inflammatory obstructive process. There is heterogenous liver without focal mass. Again noted moderate right pleural effusion. Liver ultrasound revealed no evidence of an acute process. She was found to have significantly elevated liver enzymes with an AST of 1356 and an ALT of 1067 and alk phos of 232. Troponins were 0.03 and 0.038. ProBNP 50,900. Urinalysis with 3+ proteins large blood and large leukoesterase and high WBCs and few bacteria. Hepatitis C screen is reactive. COVID-19 screen negative. White count 8.5. Hemoglobin 9.9. INR 1.6. Sodium 136. Potassium 3.4. Bicarb 23. BUN 27. Creatinine 0.9. Glucose 115. The patient was seen in consultation in the emergency department. Bedside ultrasound revealed a significant pocket of free-flowing fluid in the right chest. She did undergo a thoracentesis with 1 L of straw-colored fluid removed. Follow-up chest x-ray showed significant improvement in right lung aeration post thoracentesis. No ev idence of pneumothorax. She remains awake and alert in no acute distress. She is maintaining O2 saturations in the 90s on 2 L nasal cannula. Afebrile. Hemodynamically stable. Progress note dated 01/31/2023. This is a 67-year-old female seen today in room 353. The patient has a history of CAD, with previous bypass surgery, and stenting, as well as COPD, TIA, hyperlipidemia, hypertension, and rheumatoid arthritis. The patient was admitted with a diagnosis of right middle lobe and lower lobe infiltrates, with pleural effusion. Currently, she's on room air. She's not receiving any IV flu ids. We will check a pro-calcitonin level on her. She did have a right-sided thoracentesis performed on January 30, with 1 L being removed. Also, it clear on auscultation, the patient has severe aortic stenosis. An echocardiogram was ordered. White count 5.3, hemoglobin 9.4, hematocrit 31, and platelet count 188,000. Sodium 137, potassium 3.2, chlorides 103, CO2 26, BUN 26, and creatinine 0.98. AST 280. ALT 726. Albumin is 2.5. Chest x-ray shows improved pleural effusion on the right, status post thoracentesis. Progress note dated 02/01/2023. 67-year-old female seen in room 353. Currently, the patient is on room air. She's not receiving any IV fluids. The patient has a history of coronary disease, with previous bypass surgery, and stenting, as well as COPD, TIA, hyperlipidemia, hypertension, and rheumatoid arthritis. The patient did have a thoracentesis performed on the right side. Clinically, she feels better. Currently laboratory data includes a white count 5.8, hemoglobin 9.9, hematocrit 33.5, and platelet count 218,000. Sodium 139, potassium 4.3, chlorides 104, CO2 29, BUN 23, and creatinine 0.91. AST is 195. ALT is 622. Albumin is 2.8. Culture data including blood and pleural fluid analysis, is currently negative. Progress note dated 02/02/2023. 67-year-old female again seen in room 353. She's currently on room air. She's not receiving any IV fluids. She is heading downstairs for a 2 view chest x- ray. The patient has a history of CAD with previous bypass surgery and stenting, COPD, TIA, hyperlipidemia, hypertension, and rheumatoid arthritis. Current labs include a white count 6.1, hemoglobin 9.7, hematocrit 32, and a normal platelet count. Sodium 137, potassium 4.7, chlorides 100, CO2 26, BUN 24, and creatinine 0.96. AST is 183. ALT is 491. Albumin is 2.9. Culture data thus far negative. Chest x-ray shows evidence of cardiomegaly, and mild CHF. Objective - Vital Signs Vital signs: Vital Signs Temp 98.3 F 02/02/23 09:25 Pulse 62 02/02/23 09:25 Resp 18 02/02/23 09:25 BP 122/50 02/02/23 09:25 Pulse Ox 95 02/02/23 09:25 FiO2 Intake & Output 02/01/23 02/02/23 02/02/23 18:59 06:59 18:59 Intake Total 535 200 Output Total 500 400 Balance 35 -400 200 Weight 46 kg Intake: Oral 535 200 Output: Urine 500 400 Other: Voiding Method External Catheter External Catheter External Catheter # Voids 1 1 - Exam No acute distress, oriented 3. No respiratory distress. Currently on room air. HEENT examination is grossly unremarkable. Mucous membranes are moist. No oral lesions. Neck supple. Full range of motion. No adenopathy thyromegaly or neck vein distention. Cardiovascular examination reveals regular rhythm rate. S1-S2 normal. No S3 or S4. A loud systolic murmur consistent with aortic stenosis is noted. Heart rate is 62 bpm. Lungs reveal mostly clear breath sounds. A few scattered rhonchi. No wheezes or crackles. Saturation is 95 % on room air. Abdomen soft bowel sounds are heard. No masses or tenderness. Extremities are intact. No cyanosis clubbing or edema. Skin is without rash or lesion. Neurologic examination is brief but nonfocal. - Labs CBC & Chem 7: 02/02/23 08:23 02/02/23 08:23 Labs: Abnormal Lab Results - Last 24 Hours (Table) 02/01/23 02/01/23 02/02/23 Range/Units 16:18 23:12 06:00 RBC (3.80-5.40) m/uL Hgb (11.4-16.0) gm/dL Hct (34.0-46.0) % MCHC (31.0-37.0) g/dL RDW (11.5-15.5) % BUN (7-17) mg/dL POC Glucose (mg/dL) 124 H 119 H 122 H (70-110) mg/dL Calcium (8.4-10.2) mg/dL AST (14-36) U/L ALT (4-34) U/L Alkaline Phosphatase (38-126) U/L Total Protein (6.3-8.2) g/dL Albumin (3.5-5.0) g/dL 02/02/23 02/02/23 02/02/23 Range/Units 08:23 08:23 11:14 RBC 3.45 L (3.80-5.40) m/uL Hgb 9.7 L (11.4-16.0) gm/dL Hct 32.0 L (34.0-46.0) % MCHC 30.4 L (31.0-37.0) g/dL RDW 16.5 H (11.5-15.5) % BUN 24 H (7-17) mg/dL POC Glucose (mg/dL) 142 H (70-110) mg/dL Calcium 8.2 L (8.4-10.2) mg/dL AST 183 H (14-36) U/L ALT 491 H (4-34) U/L Alkaline Phosphatase 151 H (38-126) U/L Total Protein 5.6 L (6.3-8.2) g/dL Albumin 2.9 L (3.5-5.0) g/dL Microbiology - Last 24 Hours (Table) 01/30/23 09:30 Gram Stain - Preliminary Pleural Fluid Body Fluid Culture - Preliminary 01/29/23 20:45 Blood Culture - Preliminary Blood 01/29/23 21:00 Blood Culture - Preliminary Blood Assessment and Plan Assessment: Acute hypoxemic respiratory failure secondary to a moderate to large right-sided pleural effusion. Status post thoracentesis with 1 L of straw-colored fluid removed. Abdominal discomfort patient found to have significantly elevated liver enzymes. Liver ultrasound revealed no acute process. Hepatitis C. Coagulopathy secondary to above. Urinary tract infection, culture pending. Acute on chronic anemia. Rheumatoid arthritis maintained on hydroxychloroquine. Hyperlipidemia. Recent MRSA bacteremia secondary to a left knee wound. History of coronary artery disease with previous coronary artery bypass grafting and previous stent placement. History of moderate aortic stenosis. History of rheumatoid arthritis associated interstitial lung disease. Plan: Plan dated 01/31/2023. The patient is seen today in room 353. The patient had a right-sided thoracentesis, yesterday, with 1 L being removed. Her cardiac auscultation reveals a harsh murmur consistent with aortic stenosis. We will check a pro- calcitonin level. The patient's currently on room air and not receiving any IV fluids. Labs, x-rays, medications are reviewed. The patient's overall prognosis remains guarded. We will continue to follow make recommendations along the way. Her elevated liver enzymes could very well be a result of congestive hepatopathy. Plan dated 02/01/2023. The patient is seen today in room 353. The patient continues to show daily improvement. Currently, she is on room air. She's not receiving any IV fluids. Liver function tests, continue to improve. Labs, x-rays, and medications are reviewed. We will continue to follow the patient, and make recommendations along the way. A pro-calcitonin level was 0.33. The pleural fluid analysis suggest a transudate. The patient continues on Rocephin. Plan dated 02/02/2023. The patient is seen today in room 353. Her chest x-ray from today, shows cardiomegaly, and mild CHF. She is on room air. She's not receiving any IV fluids. Labs, x-rays, and medications are reviewed. The patient is stable for possible consideration of discharge. We will allow the primary service to make that decision. No additional recommendations at this time. Should she not be discharged, we'll continue to follow along, and make recommendations where appropriate. Liver enzymes are much improved. The patient continues on Rocephin. Time with Patient: Less than 30
--- NOTE | 2023-02-02 13:20 | P.PN ---
Subjective HISTORY OF PRESENT ILLNESS: The patient is a pleasant 67-year-old female patient who is known to her service from before with a past medical history significant for coronary artery disease status post CABG with TINOCO into LAD and EG to OM and SVG to RCA and stenting of the LAD distal to the anastomosis as well as heart failure with preserved ejection fraction and also carotid atherosclerosis and lower extremities PAD as well as valvular heart disease with aortic stenosis as well as multiple comorbid conditions. She presented to the hospital with progressive exertional dyspnea started about 24 hours for 48 hours before. No symptoms of chest pain or chest discomfort and no lower extremities edema and no change in the weight. The patient is supposed to be on oral diuretics but clearly she has not been compliant with her medications. She underwent further workup including chest x- ray and that showed large pleural effusion and she underwent thoracentesis by the pulmonary/critical care team. The NT proBNP came in to be severely elevated. The chest x-ray beside that showed pulmonary vascular congestion. The EKG showed sinus mechanism with diffuse nonspecific ST and T wave abnormalities. The patient was seen by our service assembly with shortness of breath and mildly abnormal troponin. She underwent further investigation including an echocardiogram and that revealed preserved LV systolic function was moderate aortic stenosis which is known from before. Recent heart catheterization showed severe triple vessel coronary artery disease with patent TINOCO to LAD and patent stent distal to the anastomosis as well as patent SVG to LCx is patent SVG to RCA. The examination is remarkable for diminished breathing sounds bilaterally with a regular rate and rhythm significant murmur at the right and left upper sternal border consistent with aortic stenosis murmur and decreased in the intensity of S2. No lower extremity edema noted. 02/01/2023 Patient reports that she is symptomatically feeling better. She status post thoracentesis. I feel patient should be appropriate to be discharged tomorrow a.m. 02/02/2023 Patient examined this morning at the bedside. Patient currently denies chest pain or pressure. She denies shortness of breath. She remains on IV Lasix. Vital signs are stable. Chest x-ray reveals cardiomegaly and mild pulmonary vascular congestion. PHYSICAL EXAM: VITAL SIGNS: Reviewed. GENERAL: Well-developed in no acute distress. NECK: Supple. No JVD or thyromegaly LUNGS: Respirations even and unlabored. Lungs essentially clear to auscultation bilaterally. HEART: Regular rate and rhythm. S1 and S2 heard. EXTREMITIES: Normal range of motion. No clubbing or cyanosis. Peripheral pulses intact. No lower extremity edema ASSESSMENT: Acute hypoxic respiratory failure, multi-factorial related to heart failure, pneumonia, and COPD Heart failure exacerbation with a preserved ejection fraction in a patient with at least moderate aortic stenosis Large right pleural effusion status post thoracentesis Coronary artery disease Valvular heart disease Multiple comorbid conditions Noncompliance with medication PLAN: Add aspirin 81 mg daily Discontinue IV Lasix. Begin oral Lasix 20 mg daily Continue additional cardiac medications Patient is currently stable from a cardiac perspective Further recommendations pending patient's course Nurse practitioner note has been reviewed by physician. Signing provider agrees with the documented findings, assessment, and plan of care. Objective - Vital Signs Vital signs: Vital Signs Temp 98.3 F 02/02/23 09:25 Pulse 62 02/02/23 09:25 Resp 18 02/02/23 09:25 BP 122/50 02/02/23 09:25 Pulse Ox 95 02/02/23 09:25 FiO2 Intake & Output 02/01/23 02/02/23 02/02/23 18:59 06:59 18:59 Intake Total 535 310 Output Total 500 400 Balance 35 -400 310 Weight 46 kg Intake: Oral 535 310 Output: Urine 500 400 Other: Voiding Method External Catheter External Catheter External Catheter # Voids 1 1 - Labs CBC & Chem 7: 02/02/23 08:23 02/02/23 08:23 Labs: Abnormal Lab Results - Last 24 Hours (Table) 02/01/23 02/01/23 02/02/23 Range/Units 16:18 23:12 06:00 RBC (3.80-5.40) m/uL Hgb (11.4-16.0) gm/dL Hct (34.0-46.0) % MCHC (31.0-37.0) g/dL RDW (11.5-15.5) % BUN (7-17) mg/dL POC Glucose (mg/dL) 124 H 119 H 122 H (70-110) mg/dL Calcium (8.4-10.2) mg/dL AST (14-36) U/L ALT (4-34) U/L Alkaline Phosphatase (38-126) U/L Total Protein (6.3-8.2) g/dL Albumin (3.5-5.0) g/dL 02/02/23 02/02/23 02/02/23 Range/Units 08:23 08:23 11:14 RBC 3.45 L (3.80-5.40) m/uL Hgb 9.7 L (11.4-16.0) gm/dL Hct 32.0 L (34.0-46.0) % MCHC 30.4 L (31.0-37.0) g/dL RDW 16.5 H (11.5-15.5) % BUN 24 H (7-17) mg/dL POC Glucose (mg/dL) 142 H (70-110) mg/dL Calcium 8.2 L (8.4-10.2) mg/dL AST 183 H (14-36) U/L ALT 491 H (4-34) U/L Alkaline Phosphatase 151 H (38-126) U/L Total Protein 5.6 L (6.3-8.2) g/dL Albumin 2.9 L (3.5-5.0) g/dL Microbiology - Last 24 Hours (Table) 01/29/23 20:45 Blood Culture - Preliminary Blood 01/29/23 21:00 Blood Culture - Preliminary Blood 01/30/23 09:30 Gram Stain - Preliminary Pleural Fluid Body Fluid Culture - Preliminary
--- NOTE | 2023-02-02 14:23 | P.DS ---
Providers Date of admission: 01/29/23 21:37 Expected date of discharge: 02/02/23 Attending physician: Ephraim Cassidy MD Consults: 01/29/23 21:37 Consult Physician Urgent Consulting Provider: [facility] Consult Reason/Comments: nonsustained vtach Do you want consulting provider notified?: Already Contacted Consult Physician Urgent Consulting Provider: Luisa Reynolds Consult Reason/Comments: hcap Do you want consulting provider notified?: Yes [facility] Course: Discharge Diagnosis: Acute hepatitis due to hepatic congestion from CHF Acute exacerbation of diastolic, right sided CHF Type II NSTEMI due to CHF Large right-sided pleural effusion, status post thoracentesis 01/30 Community acquired pneumonia Recurrent episodes of nonsustained V. tach, likely secondary to right-sided heart failure with fluid volume overload accompanied by electrolyte abnormalities History of CAD status post CABG and stent placement Moderate to severe mitral and aortic valve stenosis Rheumatoid arthritis 2.1 CM pelvic cyst, likely relates to ovary Hypomagnesemia, resolved. Hypokalemia, resolved. UTI, s/p treatment with rocephin Hypoglycemia 1 event, resolved Chronic: Peripheral vascular disease History of Hepatitis C status post treatment Hypertension Hyperlipidemia Hospital Course: Patient is a 67-year-old female with known coronary artery disease status post CABG and stent, hypertension, dyslipidemia, rheumatoid arthritis, and multiple other comorbid conditions who presented to the ER on 01/29/23 with worsening exertional dyspnea. In the emergency department she underwent an extensive evaluation. Laboratory analysis was remarkable for hemoglobin 10.1, INR 1.7, bicarb 16, AST 1356, ALT 1067, alkaline phosphatase 232, and lactic acid 2.1. Urinalysis was concerning for infection. Serum Tylenol and alcohol levels were both less than 10. BNP was significantly elevated at 50,900. Chest x-ray demonstrated a large right middle and lower lobe infiltrate with small adjacent pleural effusion and cardiomegaly. ABG showed nonspecific bowel gas pattern. Liver ultrasound was negative for acute intra-abdominal process. She subsequently underwent a CT abdomen and pelvis which was significant for 2.1 cm pelvic cyst/cystic mas. Patient was subsequently admitted with consultation to cardiology, pulmonary, and GI. Patient did have an episode of nonsustained V. tach on the emergency department. Patient was started on IV Lasix. She contineud to improve. She right-sided thoracentesis on 01/10/2026 with removal of 1 L of fluid came back transiting of and was felt to be secondary to acute exacerbation of congestive heart failure. She also completed a course of antibiotics for possible community-acquired pneumonia. Her fluid status was optimized. She had no additional episodes of nonsustained V. tach. She continued to do well. She was transitioned off of IV Lasix and on oral Lasix. She was determined stable for discharge home. Follow-up: antibiotics completed. Dr. Simental in 1 week, Miguel bogart Dr. caleb hawkins was office in 2 weeks, Dr. Trinidad n 1-2 days. Her Lasix was transitioned to 20 mg daily, her metoprolol was decreased to 12.5 mg twice daily, potassium 10 mEq daily, and Lipitor was decreased to 40 mg daily given her elevated liver enzymes on admission. Patient seen and examined at bedside. Doing well. Breathing is back to baseline. No other complaints. Would like to go home. Vital signs reviewed and stable. General: nontoxic, no distress, appears at stated age Cardiovascular: S1S2 reg, no murmur, positive posterior tibial pulse bilateral, Lungs: Course bs bilateral, no rhonchi, no rales , no accessory muscle use Abdominal: soft, nontender to palpation, no guarding, no appreciable organomegaly Ext: no gross muscle atrophy, no edema b/l lower extremities, no contractures Neuro: CN II-XI grossly intact, no focal neuro deficits Psych: Alert, oriented, appropriate affect A total of 37 minutes of time were spent preparing this complex discharge summary. Patient was discharged on 02/02/23. This dictation was prepared using [employer] voice recognition software. Though every attempt is made to correct errors during dictation some may still exist. Patient Condition at Discharge: Stable Plan - Discharge Summary New Discharge Prescriptions: New RX: Furosemide [Lasix] 20 mg PO DAILY #30 tab RX: Metoprolol Tartrate [Lopressor] 12.5 mg PO BID #60 tab RX: Potassium Chloride ER [K-Dur 10] 10 meq PO DAILY #30 tab RX: Aspirin 81 mg PO DAILY #0 tab RX: Atorvastatin [Lipitor] 40 mg PO HS #30 tab Continue RX: Isosorbide Mononitrate [Imdur] 30 mg PO DAILY RX: Omeprazole 20 mg PO DAILY RX: traZODone HCL 50 mg PO HS RX: Ascorbic Acid [Vitamin C] 1,000 mg PO DAILY RX: lisinopriL [Zestril] 5 mg PO DAILY RX: Cholecalciferol [Vitamin D3 (125 Mcg = 5000 Iu)] 125 mcg PO DAILY RX: Hydroxychloroquine Sulfate [Plaquenil] 200 mg PO BID RX: Sennosides [Senokot] 8.6 mg PO BID PRN PRN Reason: Constipation RX: Citalopram Hydrobromide [CeleXA] 40 mg PO DAILY RX: HYDROcodone/APAP 7.5-325MG [[place] 7.5-325] 1 tab PO Q4H PRN PRN Reason: Pain RX: Magnesium Oxide [Mag-Ox] 400 mg PO DAILY #60 tablet Discontinued RX: Metoprolol Tartrate [Lopressor] 50 mg PO BID RX: Atorvastatin [Lipitor] 80 mg PO HS RX: Furosemide [Lasix] 20 mg PO Q48H Discharge Medication List RX: Isosorbide Mononitrate [Imdur] 30 mg PO DAILY 11/22/13 [History] RX: Omeprazole 20 mg PO DAILY 01/19/17 [History] RX: traZODone HCL 50 mg PO HS 02/26/19 [History] RX: Hydroxychloroquine Sulfate [Plaquenil] 200 mg PO BID 10/09/22 [History] RX: Ascorbic Acid [Vitamin C] 1,000 mg PO DAILY 11/17/22 [History] RX: Sennosides [Senokot] 8.6 mg PO BID PRN 11/17/22 [History] RX: Citalopram Hydrobromide [CeleXA] 40 mg PO DAILY 12/25/22 [History] RX: HYDROcodone/APAP 7.5-325MG [[place] 7.5-325] 1 tab PO Q4H PRN 12/25/22 [History] RX: lisinopriL [Zestril] 5 mg PO DAILY 12/25/22 [History] RX: Magnesium Oxide [Mag-Ox] 400 mg PO DAILY #60 tablet 12/28/22 [Rx] RX: Cholecalciferol [Vitamin D3 (125 Mcg = 5000 Iu)] 125 mcg PO DAILY 01/29/23 [History] RX: Aspirin 81 mg PO DAILY #0 tab 02/02/23 [Rx] RX: Atorvastatin [Lipitor] 40 mg PO HS #30 tab 02/02/23 [Rx] RX: Furosemide [Lasix] 20 mg PO DAILY #30 tab 02/02/23 [Rx] RX: Metoprolol Tartrate [Lopressor] 12.5 mg PO BID #60 tab 02/02/23 [Rx] RX: Potassium Chloride ER [K-Dur 10] 10 meq PO DAILY #30 tab 02/02/23 [Rx] Follow up Appointment(s)/Referral(s): Gabo Simental MD [STAFF PHYSICIAN] - 1 Week Anabela Parks NPC [REFERRING] - 2 Weeks (Gastroenterology follow up for acute hepatitis) [facility], [NON-STAFF] - Olivier Trinidad DO [Primary Care Provider] - 1-2 days Patient Instructions/Handouts: Pneumonia (DC) Activity/Diet/Wound Care/Special Instructions: Activity: As tolerated Diet: Heart Healthy Special Instructions: Your CT scan demonstrated a 2.1 cm pelvic cystic structure (likely relating to your ovary). Once you are feeling better we recommend working with Dr. Trinidad's office to have an ultrasound completed to further evaluate. Taking your weight daily. If you gain more than 3 pounds in one day or 5 pounds in 3 days please call cardiology. Discharge Disposition: HOME SELF-CARE
== END 2023-02-02 16:20 | disposition home or self-care (01) | DRG 280 ==
LOC: EC 15:49 → 3SCARD 21:37
PROVIDERS: ADMIT Internal Medicine; ATTEND Internal Medicine
PROC: 0W993ZZ Drainage of Right Pleural Cavity, Percutaneous Approach (ICD-10-PCS; principal; 2023-01-30)
DX: I11.0 Hypertensive heart disease with heart failure (principal); I21.A1 Myocardial infarction type 2; I50.33 Acute on chronic diastolic (congestive) heart failure; J96.01 Acute respiratory failure with hypoxia; B17.9 Acute viral hepatitis, unspecified; D68.9 Coagulation defect, unspecified; J90 Pleural effusion, not elsewhere classified; I47.20 Ventricular tachycardia, unspecified; N39.0 Urinary tract infection, site not specified; E87.20 Acidosis, unspecified; J44.0 Chronic obstructive pulmonary disease with (acute) lower respiratory infection; I73.9 Peripheral vascular disease, unspecified; D50.9 Iron deficiency anemia, unspecified; F41.9 Anxiety disorder, unspecified; F32.A Depression, unspecified; I08.0 Rheumatic disorders of both mitral and aortic valves; Z11.52 Encounter for screening for COVID-19; E87.6 Hypokalemia; E83.42 Hypomagnesemia; M06.9 Rheumatoid arthritis, unspecified; N83.209 Unspecified ovarian cyst, unspecified side; L30.9 Dermatitis, unspecified; E16.2 Hypoglycemia, unspecified; Z86.19 Personal history of other infectious and parasitic diseases; E78.5 Hyperlipidemia, unspecified; M19.90 Unspecified osteoarthritis, unspecified site; G89.29 Other chronic pain; M41.9 Scoliosis, unspecified; Z86.14 Personal history of Methicillin resistant Staphylococcus aureus infection; Z87.11 Personal history of peptic ulcer disease; Z85.41 Personal history of malignant neoplasm of cervix uteri; Z88.5 Allergy status to narcotic agent; Z79.899 Other long term (current) drug therapy
CPT/HCPCS: 36415; 71045; 71046; 74018; 74177; 76705; 80048; 80053; 80074; 80143; 80179; 80320; 81001; 82945; 83605; 83615; 83690; 83735; 83880; 84145; 84155; 84157; 84484; 85025; 85027; 85610; 87040; 87070; 87102; 87116; 87205; 87206; 87449; 87496; 87498; 87502; 87529; 87634; 87635; 87798; 88108; 88305; 89050; 93005; 94760; 96365; 96375; 99291

== ENCOUNTER 2023-02-04 19:02 | Emergency (ER) | payer MEDICARE, OTHER ==
[2023-02-04 19:37] VITALS: TEMP 99.2
[2023-02-04] MEDS ORDERED: SODIUM CHLORIDE 0.9% 1,000 ML IV STA (19:58)
[2023-02-04] MEDS ORDERED: HYDROmorphone 0.5 MG/0.5 ML SYRINGE IVP STA ×2 (20:07→21:18)
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
[2023-02-04 21:09] LABS: Anisocytosis Slight; Basophils % (A) 0 %; Eosinophils # (A) 0.3 k/uL (0-0.7); Eosinophils % (A) 3 %; HGB 9.3 gm/dL (11.4-16.0); Hypochromasia Marked; Lymphocytes % (A) 14 %; Mean Platelet Volume 7.3; Monocytes # (A) 0.6 k/uL (0-1.0); Monocytes % (A) 8 %; Neutrophils # (A) 5.6 k/uL (1.3-7.7); Neutrophils % (A) 73 %; Platelet Count 234 k/uL (150-450); Poikilocytosis Slight; RBC 3.44 m/uL (3.80-5.40); RDW 16.3 % (11.5-15.5); WBC 7.6 k/uL (3.8-10.6)
[2023-02-04 21:10] LABS: ALT 278 U/L (4-34); AST 54 U/L (14-36); African American GFR (CKD) >90 (>60 ml/min/1.73 sqM); Albumin 3.5 g/dL (3.5-5.0); Alcohol <10 mg/dL; Alkaline Phosphatase 175 U/L (38-126); Anion Gap 10 mmol/L; Blood Urea Nitrogen 15 mg/dL (7-17); Carbon Dioxide 24 mmol/L (22-30); Chloride 102 mmol/L (98-107); Glucose 87 mg/dL (74-99); INR 1.1 (<1.2); Non-African American GFR(CKD) 83 (>60 ml/min/1.73 sqM); Partial Thromboplastin Time 24.6 sec (22.0-30.0); Potassium 4.2 mmol/L (3.5-5.1); Prothrombin Time 11.5 sec (10.0-12.5); Sodium 136 mmol/L (137-145); Total Bilirubin 0.9 mg/dL (0.2-1.3); Total Protein 6.6 g/dL (6.3-8.2)
[2023-02-04 21:17] LABS: MCV 87.1 fL (80.0-100.0)
[2023-02-04 21:19] LABS: Amphetamine Screen,Urine Not Detected (NotDetected); Barbiturate Screen,Urine Not Detected (NotDetected); Benzodiazepines Screen,Urine Not Detected (NotDetected); Cocaine Screen,Urine Not Detected (NotDetected); Methadone Screen, Urine Not Detected (NotDetected); Opiate Screen,Urine Detected (NotDetected); Oxycodone Screen, Urine Not Detected (NotDetected); Phencyclidine Screen,Urine Not Detected (NotDetected); Tricyclic Antidepressant,Urine Not Detected (NotDetected); Urn Cannabinoid Scrn Not Detected (NotDetected)
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
[2023-02-04] MEDS ORDERED: LIDOCAINE 1% INJ 10MG/ML (20 ML MDV) SQ ONE (22:40)
[2023-02-04] MEDS ORDERED: DIPH,PERTUS(ACELL)TETVAC-LF 0.5 ML VIAL IM ONE (22:40)
[2023-02-05 00:13] VITALS: BP 177/82; PULSE 111; RESP 18
== END 2023-02-05 00:26 | disposition home or self-care (01) ==
LOC: EC 19:02
DX: S01.511A Laceration without foreign body of lip, initial encounter (principal); S01.81XA Laceration without foreign body of other part of head, initial encounter; I25.10 Atherosclerotic heart disease of native coronary artery without angina pectoris; J44.9 Chronic obstructive pulmonary disease, unspecified; I10 Essential (primary) hypertension; M19.90 Unspecified osteoarthritis, unspecified site; K21.9 Gastro-esophageal reflux disease without esophagitis; F41.9 Anxiety disorder, unspecified; F32.A Depression, unspecified; Z87.891 Personal history of nicotine dependence; Z88.5 Allergy status to narcotic agent; Z79.899 Other long term (current) drug therapy; Z23 Encounter for immunization; V49.40XA Driver injured in collision with unspecified motor vehicles in traffic accident, initial encounter; Y92.410 Unspecified street and highway as the place of occurrence of the external cause
CPT/HCPCS: 90471 ×2; 96376 ×2; 12011 ×2; 96361 ×2; 96374 ×2; 99285 ×2; 36415; 93005; 86900; 86901; 80053; 85025; 85610; 85730; 86850; 80306; 73564; 72170; 71045; 72125; 70486; 70450; 90715; G0480; J2001; J1170; 80320

== ENCOUNTER 2023-02-16 14:12 | Emergency (ER) | payer MEDICARE, OTHER ==
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
--- NOTE | 2023-02-16 15:08 | XR ---
EXAMINATION TYPE: XR ribs LT w pa chest xray DATE OF EXAM: 02/16/2023 COMPARISON: 02/04/2023 HISTORY: Pain TECHNIQUE: 2 view left rib supplemented with an AP chest FINDINGS: No acute displaced rib fractures are evident. No pneumothorax is evident. IMPRESSION: 1. No acute left rib abnormality
[2023-02-16] MEDS ORDERED: KETOROLAC 15 MG/ML 1 ML VIAL IVP STA (17:40)
[2023-02-16 18:03] LABS: Anisocytosis Slight; Basophils % (A) 0 %; Eosinophils # (A) 0.1 k/uL (0-0.7); Eosinophils % (A) 1 %; HCT 30.5 % (34.0-46.0); HGB 9.4 gm/dL (11.4-16.0); Hypochromasia Marked; Lymphocytes # (A) 0.8 k/uL (1.0-4.8); Lymphocytes % (A) 7 %; MCH 27.1 pg (25.0-35.0); MCHC 30.8 g/dL (31.0-37.0); MCV 87.9 fL (80.0-100.0); Mean Platelet Volume 7.7; Monocytes # (A) 0.8 k/uL (0-1.0); Monocytes % (A) 8 %; Neutrophils # (A) 8.5 k/uL (1.3-7.7); Neutrophils % (A) 82 %; Platelet Count 313 k/uL (150-450); Poikilocytosis Moderate; RBC 3.47 m/uL (3.80-5.40); RDW 17.9 % (11.5-15.5); WBC 10.3 k/uL (3.8-10.6)
[2023-02-16 18:15] LABS: ALT 20 U/L (4-34); AST 16 U/L (14-36); African American GFR (CKD) 87 (>60 ml/min/1.73 sqM); Alkaline Phosphatase 181 U/L (38-126); Anion Gap 12 mmol/L; Blood Urea Nitrogen 18 mg/dL (7-17); Calcium 9.1 mg/dL (8.4-10.2); Carbon Dioxide 19 mmol/L (22-30); Chloride 109 mmol/L (98-107); Glucose 73 mg/dL (74-99); Magnesium 1.6 mg/dL (1.6-2.3); Non-African American GFR(CKD) 75 (>60 ml/min/1.73 sqM); Potassium 2.8 mmol/L (3.5-5.1); Sodium 140 mmol/L (137-145); Total Bilirubin 0.6 mg/dL (0.2-1.3); Total Protein 6.5 g/dL (6.3-8.2)
[2023-02-16] MEDS ORDERED: Potassium Replacement Protocol 1 EACH MISC MISCELLANE PRN (18:17)
[2023-02-16] MEDS: POTASSIUM CHLORIDE ER 20 MEQ TAB.ER PO SCH ×3 (18:28→19:55)
--- NOTE | 2023-02-16 18:37 | CT ---
EXAMINATION TYPE: CT chest wo con DATE OF EXAM: 02/16/2023 COMPARISON: 11/17/2022 HISTORY: Chronic and increasing rib pain. CT DLP: 387.6 mGycm, Automated exposure control for dose reduction was used. CONTRAST: None TECHNIQUE: Axial images were obtained at 5 mm thick sections. Reconstructed images are reviewed on [employer] computer in the coronal plane. FINDINGS: Portion of the thyroid visualized is normal. There is a small right pleural effusion. There is some adjacent compressive atelectasis. Minimal left pleural effusion is present. Minimal groundglass opacity in the left upper lung field No enlarged mediastinal or hilar adenopathy is evident. The ascending aorta diameter at the level o f the main pulmonary artery is 3.0 cm. The main pulmonary artery diameter at the bifurcation is 2.9 cm. Moderate coronary artery calcification is present. Limited CT sections are obtained through the upper abdomen. Some mild prominence of the left adrenal gland is present. There is an anterior lateral left seventh rib fracture. Series 201 image 94.a the sixth rib fracture is present, image 84. IMPRESSION: 1. Small right and minimal left pleural effusions. Compressive atelectasis is adjacent to the right p leural effusion. 2. Left anterior sixth and seventh rib fractures no pneumothorax is evident.
[2023-02-16 18:49] LABS: Partial Thromboplastin Time 29.7 sec (22.0-30.0); Prothrombin Time 11.4 sec (10.0-12.5)
[2023-02-16] MEDS ORDERED: MORPHINE SULFATE 4 MG/ML SYRINGE IVP STA (19:08)
[2023-02-16] MEDS ORDERED: MAGNESIUM OXIDE 400 MG TAB PO STA (19:12)
[2023-02-16] MEDS ORDERED: LIDOCAINE 4% PATCH TOPICAL ONE (19:12)
[2023-02-16 19:43] VITALS: BP 149/67; PULSE 105; RESP 20; TEMP 97.8
== END 2023-02-16 20:12 | disposition home or self-care (01) ==
LOC: EC 14:12
DX: S22.42XA Multiple fractures of ribs, left side, initial encounter for closed fracture (principal); D64.9 Anemia, unspecified; I10 Essential (primary) hypertension; I25.10 Atherosclerotic heart disease of native coronary artery without angina pectoris; J44.9 Chronic obstructive pulmonary disease, unspecified; F41.9 Anxiety disorder, unspecified; F32.A Depression, unspecified; K21.9 Gastro-esophageal reflux disease without esophagitis; M06.9 Rheumatoid arthritis, unspecified; Z79.899 Other long term (current) drug therapy; Z88.5 Allergy status to narcotic agent; Z87.891 Personal history of nicotine dependence; Z90.49 Acquired absence of other specified parts of digestive tract; Z86.73 Personal history of transient ischemic attack (TIA), and cerebral infarction without residual deficits; V89.2XXA Person injured in unspecified motor-vehicle accident, traffic, initial encounter; Y92.410 Unspecified street and highway as the place of occurrence of the external cause
CPT/HCPCS: 36415; 93005; 80053; 83735; 84484; 85025; 85610; 85730; 71101; 71250; 99285; 96374; 96375; J2270; J1885